=== PATIENT | female | born 1980 | race Caucasian/White ===

== ENCOUNTER 2023-11-10 08:49 | Outpatient (RCR) | payer OTHER, SELFPAY | END 2023-12-05 11:39 | disposition home or self-care (01) | LOC: OT 08:49 | PROVIDERS: PCP Family Medicine | DX: G35 Multiple sclerosis (principal); G43.009 Migraine without aura, not intractable, without status migrainosus; R26.9 Unspecified abnormalities of gait and mobility | CPT/HCPCS: 97166; 97530 ==

== ENCOUNTER 2023-11-10 08:55 | Outpatient (RCR) | payer OTHER, SELFPAY | END 2023-12-05 11:40 | disposition home or self-care (01) | LOC: PT 08:55 | PROVIDERS: PCP Family Medicine | DX: G35 Multiple sclerosis (principal); G43.009 Migraine without aura, not intractable, without status migrainosus; R26.9 Unspecified abnormalities of gait and mobility | CPT/HCPCS: 97110; 97162; 97530 ==

== ENCOUNTER 2023-12-06 06:00 | Outpatient (RCR) | payer MEDICARE, MEDICAID, SELFPAY | END 2024-01-01 16:38 | disposition home or self-care (01) | LOC: OT 06:00 | PROVIDERS: PCP Family Medicine | DX: G35 Multiple sclerosis (principal); G43.009 Migraine without aura, not intractable, without status migrainosus | CPT/HCPCS: 97530 ==

== ENCOUNTER 2023-12-06 06:00 | Outpatient (RCR) | payer MEDICARE, MEDICAID, SELFPAY | END 2024-01-12 16:38 | disposition home or self-care (01) | LOC: PT 06:00 | PROVIDERS: PCP Family Medicine | DX: G35 Multiple sclerosis (principal); G43.009 Migraine without aura, not intractable, without status migrainosus | CPT/HCPCS: 97110; 97530 ==

== ENCOUNTER 2024-01-11 15:28 | Emergency (ER) | payer MEDICARE, MEDICAID, SELFPAY ==
[2024-01-11] VITALS (18 sets, daily range): BP systolic 109–139; BP diastolic 41–83; PULSE 98–108; TEMP 36.7; O2SAT 93–98; BMI 43.3
--- NOTE | 2024-01-11 15:48 | ECG_ITS ---
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
--- NOTE | 2024-01-11 15:54 | ED.GENADUL1 ---
HPI HPI - General Adult General Chief complaint: Syncope Stated complaint: Dizziness Time Seen by Provider: 01/11/24 15:31 Mode of arrival: ambulance History of Present Illness HPI narrative: Patient is a 43-year-old female who presents to the emergency department by ambulance for a syncopal episode with questionable head injury prior to arrival. Patient was at physical therapy. 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 She has never had surgery on her brain. Her MS and seizure disorder is managed by neurology at [facility]. She denies any recent change of her medications. She was in a seated position after therapy when she felt lightheaded, dizzy and fell forward passing out for several seconds. Initially physical therapy reported that the patient did not hit her head, although on arrival EMS reports that she did. She was not noted to have any epistaxis, dental injury. She complains of pain in the head, upper back, right hip and right elbow. She is not concerned for . She denies any recent illness. On my evaluation, the patient is whispering and rolling her eyes back in her head. The whispering stops and the patient becomes more focused when she is asked questions and distracted. Related Data Previous Rx's ?Medication ?Instructions ?Recorded ctiyrfyxyo-cbyteuxifqear-xxbxvjwz 1 cap PO Q6H PRN headache 3 days 01/11/24 50 mg-300 mg-40 mg capsule #12 caps (Fioricet) ondansetron 4 mg disintegrating 4 mg PO Q6H PRN nausea and 01/11/24 tablet vomiting #12 tabs Allergies Allergy/AdvReac Type Severity Reaction Status Date / Time No Known Drug Allergies Allergy Verified 01/11/24 15:35 Opioid HPI Opioid Management Most Recent Opioid Data: Last NOV Pain Assessment 01/11/24 16:22 Review of Systems ROS Constitutional Denies: fever or chills Ears, nose, mouth, and throat Denies: throat pain, nasal congestion or nose bleeds Cardiovascular Denies: chest pain Respiratory Denies: shortness of breath or cough Gastrointestinal Denies: nausea or vomiting Musculoskeletal Reports: back pain, extremity pain, joint pain and muscle weakness; Denies: neck pain or extremity swelling Integumentary/Breast Denies: rash Neurological Reports: headache, weakness in extremities and dizziness Hematologic/Lymphatic Denies: easy bruising or easy bleeding Exam Narrative Exam Narrative: Gen.: Awake, alert, in no distress Head: Normocephalic, atraumatic ENT: Moist mucous membranes, No facial or dental injury, C-spine nontender Respiratory: No respiratory distress, lungs clear bilaterally Cardio: Regular rate and rhythm Gastrointestinal: Abdomen is soft, nondistended and nontender to palpation, Pelvis is stable with tenderness of the right hip Extremities: Moves extremities equally Psych: Normal mood and affect Neuro: No focal neuro deficit Skin: Warm, dry, intact Constitutional Vital Signs, click to edit/add: Last Vital Signs Temp 98.1 F 01/11/24 15:30 Pulse 99 H 01/11/24 16:30 Resp 23 H 01/11/24 16:30 BP 129/82 01/11/24 16:30 Pulse Ox 97 01/11/24 16:48 O2 Del Method Room Air 01/11/24 16:48 Course Vital Signs Vital signs: Vital Signs Temperature 98.1 F 01/11/24 15:30 Pulse Rate 105 H 01/11/24 15:30 Respiratory Rate 16 01/11/24 15:30 Blood Pressure 139/82 01/11/24 15:30 Pulse Oximetry 93 L 01/11/24 15:30 Oxygen Delivery Method Room Air 01/11/24 15:30 Temperature 98.1 F 01/11/24 15:30 Pulse Rate 99 H 01/11/24 16:30 Respiratory Rate 23 H 01/11/24 16:30 Blood Pressure 129/82 01/11/24 16:30 Pulse Oximetry 97 01/11/24 16:48 Oxygen Delivery Method Room Air 01/11/24 16:48 Medical Decision Making [facility] Narrative Medical decision making narrative: On arrival to the ER, patient was sent for CTs of the head, C-spine, T-spine and a CT angio of the chest due to the lightheadedness and dizziness causing a syncopal episode. All of the studies are unremarkable including x-rays of the right elbow and pelvis. Patient was medicated with IV fluids, Toradol and Zofran. Initially her serum qualitative test was positive, quantitative hCG level is 2, the patient is not . She was given additional Fioricet for headache. Her labs are stable and she is discharged home with Fioricet and Zofran. She was encouraged to follow-up with her neurologist. She had no seizure-like activity in the ER and maintained stable vital signs. She was reevaluated by attending physician prior to discharge. Medical Records Medical records reviewed: Yes I reviewed the patient's medical records Lab Data Lab results reviewed: Yes I reviewed the patient's lab results Labs: Lab Results 01/11/24 01/11/24 Range/Units 16:03 16:20 WBC 13.4 H (4.0-11.0) 10^3/uL RBC 4.28 (4.20-5.40) 10^6/uL Hgb 11.6 L (12.0-16.0) g/dL Hct 35.7 L (36.0-48.0) % MCV 83.4 (81.0-99.0) fL MCH 27.1 (26.7-34.0) pg MCHC 32.5 (29.9-35.2) g/dL RDW 15.1 H (11.0-15.0) % Plt Count 255 (150-450) 10^3/uL MPV 8.5 L (9.5-13.5) fL PT 10.6 (9.0-11.6) sec INR 1.00 Sodium 140 (136-145) mmol/L Potassium 4.0 (3.5-5.1) mmol/L Chloride 104 (98-107) mmol/L Carbon Dioxide 28.8 (21.0-32.0) mmol/L Anion Gap 11.2 BUN 12.0 (7.0-18.0) mg/dL Creatinine 0.61 (0.55-1.02) mg/dL Est GFR ( Amer) >60 (>=60) Est GFR (Non-Af Amer) >60 (>=60) BUN/Creatinine Ratio 19.7 Glucose 131 H (74-106) mg/dL Lactate 1.5 (0.4-2.0) mmol/L Calcium 9.2 (8.5-10.1) mg/dL Magnesium 1.9 (1.8-2.4) mg/dL Total Bilirubin 0.2 (0.2-1.0) mg/dL AST 25 (15-37) U/L ALT 43 (14-59) U/L Alkaline Phosphatase 130 H (46-116) U/L Troponin I High Sens 4.9 (4.0-51.3) pg/mL Total Protein 6.9 (6.4-8.2) g/dL Albumin 3.0 L (3.4-5.0) g/dL Globulin 3.9 g/dL Albumin/Globulin Ratio 0.8 TSH 1.488 (0.358-3.740) uIU/mL Serum HCG, Qual Positive A (NEGATIVE) HCG, Quant 2 mIU/mL Urine Color Yellow (YELLOW) Urine Clarity Clear (CLEAR) Urine pH 5.5 (5.0-9.0) Ur Specific [place] >=1.030 A (1.005-1.025) Urine Protein Negative (NEG/TRACE) mg/dL Urine Glucose (UA) Negative (NEGATIVE) mg/dL Urine Ketones Negative (NEGATIVE) mg/dL Urine Occult Blood Negative (NEGATIVE) Urine Nitrite Negative (NEGATIVE) Urine Bilirubin Negative (NEGATIVE) Urine Urobilinogen 0.2 (0.2-1.0) EU/dL Ur Leukocyte Esterase Negative (NEGATIVE) Imaging Data CT scan - head: Attestation: I have reviewed the pertinent imaging results. Radiologist's impression: ITS Impressions Cervical Spine CT 01/11/24 17:11 IMPRESSION: No acute traumatic intracranial process. No cervical spine fracture. Electronically authenticated by: [employer] Date: 01/11/2024 18:03 Chest CTA 01/11/24 17:11 IMPRESSION:No evidence of pulmonary embolus or acute intrathoracic abnormality. Electronically authenticated by: [employer] Date: 01/11/2024 17:38 Elbow X-Ray 01/11/24 17:11 IMPRESSION: No acute processes. Electronically authenticated by: [employer] Date: 01/11/2024 17:[address] 01/11/24 17:11 IMPRESSION: No acute traumatic intracranial process. No cervical spine fracture. Electronically authenticated by: [employer] Date: 01/11/2024 18:[address] 01/11/24 17:11 IMPRESSION: No acute fracture. Electronically authenticated by: [employer] Date: 01/11/2024 18:05 ECG Data Attestation: I personally reviewed and interpreted this ECG as follows: (Normal sinus rhythm at a rate of 99, no acute ST elevation or ectopy. EKG reviewed by attending physician) Discharge Plan Discharge Stand Alone Forms: Portal Instructions Chief Complaint: Syncope Clinical Impression: Headache, Syncope Patient Disposition: Home, Self-Care Time of Disposition Decision: 18:13 Condition: Good Prescriptions / Home Meds: New wixaruxxut-gcusxfipvuddt-ismx [Fioricet] 50-300-40 mg capsule 1 cap PO Q6H PRN (Reason: headache) 3 Days Qty: 12 0RF ondansetron 4 mg tablet,disintegrating 4 mg PO Q6H PRN (Reason: nausea and vomiting) Qty: 12 0RF Print Language: Macedonian Instructions: Syncope (ED), Acute Headache (ED) Referrals: REX HAMM [Primary Care Provider] - 1 week
[2024-01-11] MEDS: KETOROLAC TROMETHAMINE 30 MG/ML VIAL IVP (16:22)
[2024-01-11] MEDS: ONDANSETRON PF 4 MG/2 ML VIAL IV (16:22)
[2024-01-11] MEDS: 0.9 % SODIUM CHLORIDE 1,000 ML 999 ML IV (16:22)
[2024-01-11 16:40] LABS: Hematocrit 35.7 % (36.0-48.0); Hemoglobin 11.6 g/dL (12.0-16.0); Mean Corpuscular HGB Conc 32.5 g/dL (29.9-35.2); Mean Corpuscular Hemoglobin 27.1 pg (26.7-34.0); Mean Corpuscular Volume 83.4 fL (81.0-99.0); Mean Platelet Volume 8.5 fL (9.5-13.5); Platelet Count 255 10^3/uL (150-450); Red Blood Count 4.28 10^6/uL (4.20-5.40); Red Cell Distribution Width 15.1 % (11.0-15.0); White Blood Count 13.4 10^3/uL (4.0-11.0)
[2024-01-11 16:49] LABS: Bilirubin Urine NEGATIVE (NEGATIVE); Blood Urine NEGATIVE (NEGATIVE); Clarity Urine CLEAR (CLEAR); Color Urine YELLOW (YELLOW); Glucose Urine UA NEGATIVE (NEGATIVE); Ketones Urine NEGATIVE (NEGATIVE); Leukocyte Esterase Urine NEGATIVE (NEGATIVE); Nitrite Urine NEGATIVE (NEGATIVE); Protein Urine NEGATIVE (NEG/TRACE); Specific Gravity Urine >=1.030 (1.005-1.025); Urobilinogen Urine 0.2 EU/dL (0.2-1.0); pH Urine 5.5 (5.0-9.0)
[2024-01-11 16:56] LABS: Prothrombin Time 10.6 sec (9.0-11.6)
[2024-01-11 17:04] LABS: Alanine Aminotransferase 43 U/L (14-59); Albumin Globulin Ratio 0.8; Alkaline Phosphatase 130 U/L (46-116); Anion Gap 11.2; Aspartate Amino Transferase 25 U/L (15-37); BUN Creatinine Ratio 19.7; Bilirubin Total 0.2 mg/dL (0.2-1.0); Calcium 9.2 mg/dL (8.5-10.1); Carbon Dioxide 28.8 mmol/L (21.0-32.0); Chloride 104 mmol/L (98-107); Estimated GFR (African America >60 (>=60); Estimated GFR (Non-African Ame >60 (>=60); Globulin 3.9 g/dL; Glucose 131 mg/dL (74-106); Magnesium 1.9 mg/dL (1.8-2.4); Sodium 140 mmol/L (136-145); Thyroid Stimulating Hormone 1.488 uIU/mL (0.358-3.740); Total Protein 6.9 g/dL (6.4-8.2); Troponin I High Sensitivity 4.9 pg/mL (4.0-51.3)
[2024-01-11 17:06] LABS: Lactate/Lactic Acid 1.5 mmol/L (0.4-2.0)
--- NOTE | 2024-01-11 17:11 | XR_ITS ---
The [address] [address] Patient Name: ROSAURA HANCOCK MRN: [id number] date: 1980 Sex: F Assigned Patient Location: ER Current Patient Location: ER Accession/Order Number: [id number] Exam Date: 01/11/2024 16:30 Report Date: 01/11/2024 18:02 At the request of: HEVER HERNANDEZ Procedure: XR pelvis 1-2V IMAGES REVIEWED: XR pelvis 1-2V COMPARISON: 03/04/2022. CLINICAL INDICATION: fall FINDINGS/IMPRESSION: No radiographic evidence of acute osseous abnormality of the pelvis. Mild-moderate degenerative change of right greater than left hips. Electronically authenticated by: DAWIT MAYER Date: 01/11/2024 18:02
--- NOTE | 2024-01-11 17:11 | CT_ITS ---
The [address] [address] Patient Name: ROSAURA HANCOCK MRN: [id number] date: 1980 Sex: F Assigned Patient Location: ER Current Patient Location: ER Accession/Order Number: [id number] Exam Date: 01/11/2024 16:30 Report Date: 01/11/2024 18:03 At the request of: HEVER HERNANDEZ Procedure: CT head/brain wo con EXAMINATION: CT head/brain wo con, CT cervical spine wo con HISTORY: syncope COMPARISON: None. TECHNIQUE: CT scan of the head and cervical spine was performed without IV contrast. CT dose reduction technique was used, including Automated Exposure Control. FINDINGS: There are no extra-axial fluid collections. There is no mass effect or midline shift. The cerebral ventricles and sulci are normal. The brain demonstrates normal attenuation. Basal cisterns are patent. There is bilateral subcortical and deep periventricular white matter chronic microvascular ischemia. Bilateral orbits, paranasal sinuses and mastoid air cells are patent. No skull base fracture. Cervical spine: Straightening of cervical spine lordosis, likely positional. Atlantodental interval is normal. No spondylolisthesis. No acute fracture. Prevertebral soft tissue is normal. CT/CT head/brain wo con IMPRESSION: No acute traumatic intracranial process. No cervical spine fracture. Electronically authenticated by: ANTHONY CHAVEZ Date: 01/11/2024 18:03
--- NOTE | 2024-01-11 17:11 | XR_ITS ---
The [address] [address] Patient Name: ROSAURA HANCOCK MRN: [id number] date: 1980 Sex: F Assigned Patient Location: ER Current Patient Location: ER Accession/Order Number: [id number] Exam Date: 01/11/2024 16:30 Report Date: 01/11/2024 17:59 At the request of: HEVER HERNANDEZ Procedure: XR elbow RT min 3V EXAM: XR elbow RT min 3V HISTORY: fall COMPARISON: None. TECHNIQUE: 3 views of the right elbow FINDINGS: There is no acute fracture or dislocation. No cortical erosion. No elbow joint effusion. The soft tissues are unremarkable. XR/XR elbow RT min 3V IMPRESSION: No acute processes. Electronically authenticated by: ANTHONY CHAVEZ Date: 01/11/2024 17:59
--- NOTE | 2024-01-11 17:11 | CT_ITS ---
The [address] [address] Patient Name: ROSAURA HANCOCK MRN: [id number] date: 1980 Sex: F Assigned Patient Location: ER Current Patient Location: ER Accession/Order Number: [id number] Exam Date: 01/11/2024 16:30 Report Date: 01/11/2024 18:03 At the request of: HEVER HERNANDEZ Procedure: CT cervical spine wo con EXAMINATION: CT head/brain wo con, CT cervical spine wo con HISTORY: syncope COMPARISON: None. TECHNIQUE: CT scan of the head and cervical spine was performed without IV contrast. CT dose reduction technique was used, including Automated Exposure Control. FINDINGS: There are no extra-axial fluid collections. There is no mass effect or midline shift. The cerebral ventricles and sulci are normal. The brain demonstrates normal attenuation. Basal cisterns are patent. There is bilateral subcortical and deep periventricular white matter chronic microvascular ischemia. Bilateral orbits, paranasal sinuses and mastoid air cells are patent. No skull base fracture. Cervical spine: Straightening of cervical spine lordosis, likely positional. Atlantodental interval is normal. No spondylolisthesis. No acute fracture. Prevertebral soft tissue is normal. CT/CT cervical spine wo con IMPRESSION: No acute traumatic intracranial process. No cervical spine fracture. Electronically authenticated by: ANTHONY CHAVEZ Date: 01/11/2024 18:03
--- NOTE | 2024-01-11 17:11 | CT_ITS ---
[address] [address] Patient Name: ROSAURA HANCOCK MRN: [id number] date: 1980 Sex: F Assigned Patient Location: ER Current Patient Location: ER Accession/Order Number: [id number] Exam Date: 01/11/2024 16:30 Report Date: 01/11/2024 18:05 At the request of: HEVER HERNANDEZ Procedure: CT thoracic spine wo con EXAMINATION: CT thoracic spine wo con HISTORY: fall COMPARISON: None. TECHNIQUE: CT scan of the thoracic spine was performed without IV contrast. CT dose reduction technique was used, including Automated Exposure Control. FINDINGS: There is normal thoracic lordosis. No spondylolisthesis. No prevertebral soft tissue swelling. No evidence for fracture. CT/CT thoracic spine wo con IMPRESSION: No acute fracture. Electronically authenticated by: ANTHONY CHAVEZ Date: 01/11/2024 18:05
--- NOTE | 2024-01-11 17:11 | CT_ITS ---
[address] [address] Patient Name: ROSAURA HANCOCK MRN: [id number] date: 1980 Sex: F Assigned Patient Location: ER Current Patient Location: ER Accession/Order Number: [id number] Exam Date: 01/11/2024 16:30 Report Date: 01/11/2024 17:38 At the request of: HEVER HERNANDEZ Procedure: CT angio chest EXAM: CT angio chest HISTORY: PE, syncope COMPARISON: None. TECHNIQUE: CT chest with intravenous contrast was performed with timing for the evaluation for pulmonary arteries. Multiplanar reformats were performed. MIP (maximum intensity projection) images or 3D post processing was performed. Dose reduction techniques were achieved by using automated exposure control and/or adjustment of mA and/or kV according to patient size and/or use of iterative reconstruction technique. FINDINGS: Lungs: No consolidation, pneumothorax, or effusion. Airways: Normal. Mediastinum: No adenopathy. Aorta: No aneurysm. Cardiac: Normal size. No pericardial effusion. Pulmonary vasculature: Diagnostic opacification of pulmonary arteries without evidence of pulmonary embolus. Normal morphology. Bones: No acute bony abnormality. Axilla: No adenopathy. Thyroid gland: No abnormality demonstrated on provided imaging. Soft tissues: Unremarkable. Upper abdomen: Unremarkable. Additional findings: None. CT/CT angio chest IMPRESSION:No evidence of pulmonary embolus or acute intrathoracic abnormality. Electronically authenticated by: ANTHONY CHAVEZ Date: 01/11/2024 17:38
[2024-01-11 17:24] LABS: Urine Microscopic Indicated NO
[2024-01-11 18:02] LABS: HCG Quantitative 2 mIU/mL
[2024-01-11 18:08] LABS: Band Neutrophils Absolute 0.3 10^3/uL (0.0-0.3); Segmented Neut Absolute Manual 3.88 10^3/uL (1.4-6.5)
[2024-01-11 18:09] LABS: Eosinophils Absolute Manual 0.67 10^3/uL (0.00-0.70); Monocytes Absolute Manual 0.67 10^3/uL (0.30-0.80)
[2024-01-11] MEDS: BUTALB/ACETAMINOPHEN/CAFFEINE 50-325-40MG TABLET 1 TAB PO (18:15)
== END 2024-01-11 18:29 | disposition home or self-care (01) ==
PROVIDERS: Physician Assistant; Emergency Provider Emergency Medicine; PCP Family Medicine
DX: R55 Syncope and collapse (principal); R51.9 Headache, unspecified; G35 Multiple sclerosis; G40.909 Epilepsy, unspecified, not intractable, without status epilepticus; Z86.73 Personal history of transient ischemic attack (TIA), and cerebral infarction without residual deficits; M54.89 Other dorsalgia; M25.551 Pain in right hip; M25.521 Pain in right elbow; R42 Dizziness and giddiness; M62.81 Muscle weakness (generalized)
CPT/HCPCS: 36415; 70450; 71275; 72125; 72128; 72170; 73080; 80053; 81003; 83605; 83735; 84443; 84484; 84702; 84703; 85007; 85027; 85610; 93005; 96361; 96374; 96375; 99285; Q9967

== ENCOUNTER 2025-06-10 14:59 | Emergency (ER) | payer MEDICARE, MEDICAID, SELFPAY ==
[2025-06-10] VITALS (33 sets, daily range): BP systolic 125–142; BP diastolic 79–99; PULSE 86–113; TEMP 37.3; O2SAT 93–100; BMI 38.7
--- NOTE | 2025-06-10 14:59 | CT_ITS ---
The [address] [address] Patient Name: ROSAURA HANCOCK MRN: [id number] date: 1980 Sex: F Assigned Patient Location: ED.MAIN Current Patient Location: ED.MAIN Accession/Order Number: [id number] Exam Date: 06/10/2025 15:40 Report Date: 06/10/2025 16:03 At the request of: KADI NEW MD Procedure: CT cervical spine wo con CT BRAIN WITHOUT CONTRAST: CLINICAL HISTORY: seizure and fall COMPARISON: CT brain 01/11/2024 TECHNIQUE: Contiguous axial unenhanced images were obtained through the brain. This CT exam was performed using one or more following dose reduction techniques: Automated exposure control, adjustment of the mA and/or kV according to patient size, or use of iterative reconstruction technique. FINDINGS: There is no evidence of midline shift, intra or extra-axial fluid collection, hemorrhage or CT evidence of stroke. Cortical atrophy with chronic microvascular ischemic changes. Posterior fossa appears unremarkable. Visualized intraorbital contents appear unremarkable. Visualized paranasal sinuses are clear. The surrounding soft tissues are normal. CT/CT head/brain wo con IMPRESSION: NO ACUTE INTRACRANIAL ABNORMALITY. CT CERVICAL SPINE WITHOUT CONTRAST WITH 3D RECONSTRUCTIONS: COMPARISON: CT cervical spine 01/11/2024 TECHNIQUE: Spiral axial unenhanced images were obtained through the cervical spine. Sagittal, coronal and 3D volume-rendered reconstructions were also reviewed. This CT exam was performed using one or more following dose reduction techniques: Automated exposure control, adjustment of the mA and/or kV according to patient size, or use of iterative reconstruction technique. FINDINGS: No fracture. Vertebral body and disc space heights appear maintained. Facet joints appear unremarkable. No prevertebral soft tissue swelling. Visualized lung apices demonstrate no acute findings. IMPRESSION: NO CERVICAL SPINE FRACTURE Impression dictated by: Arnel Radford Jr., DErickOErick 06/10/2025 4:03 PM Dictation Location: [employer] Electronically authenticated by: [id number] Y Date: 06/10/2025 16:03
--- NOTE | 2025-06-10 14:59 | CT_ITS ---
The [address] [address] Patient Name: ROSAURA HANCOCK MRN: [id number] date: 1980 Sex: F Assigned Patient Location: ED.MAIN Current Patient Location: ED.MAIN Accession/Order Number: [id number] Exam Date: 06/10/2025 15:40 Report Date: 06/10/2025 16:03 At the request of: KADI NEW MD Procedure: CT cervical spine wo con CT BRAIN WITHOUT CONTRAST: CLINICAL HISTORY: seizure and fall COMPARISON: CT brain 01/11/2024 TECHNIQUE: Contiguous axial unenhanced images were obtained through the brain. This CT exam was performed using one or more following dose reduction techniques: Automated exposure control, adjustment of the mA and/or kV according to patient size, or use of iterative reconstruction technique. FINDINGS: There is no evidence of midline shift, intra or extra-axial fluid collection, hemorrhage or CT evidence of stroke. Cortical atrophy with chronic microvascular ischemic changes. Posterior fossa appears unremarkable. Visualized intraorbital contents appear unremarkable. Visualized paranasal sinuses are clear. The surrounding soft tissues are normal. CT/CT cervical spine wo con IMPRESSION: NO ACUTE INTRACRANIAL ABNORMALITY. CT CERVICAL SPINE WITHOUT CONTRAST WITH 3D RECONSTRUCTIONS: COMPARISON: CT cervical spine 01/11/2024 TECHNIQUE: Spiral axial unenhanced images were obtained through the cervical spine. Sagittal, coronal and 3D volume-rendered reconstructions were also reviewed. This CT exam was performed using one or more following dose reduction techniques: Automated exposure control, adjustment of the mA and/or kV according to patient size, or use of iterative reconstruction technique. FINDINGS: No fracture. Vertebral body and disc space heights appear maintained. Facet joints appear unremarkable. No prevertebral soft tissue swelling. Visualized lung apices demonstrate no acute findings. IMPRESSION: NO CERVICAL SPINE FRACTURE Impression dictated by: Arnel Radford Jr. DErickOErick 06/10/2025 4:03 PM Dictation Location: [employer] Electronically authenticated by: [id number] Y Date: 06/10/2025 16:03
--- NOTE | 2025-06-10 15:00 | ECG_ITS ---
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 Measurements Intervals [place] Rate: 106 P: 43 [place]: 152 QRS: 37 QRSD: 84 T: 64 QT: 316 QTc: 378 Interpretive Statements 1120 Sinus tachycardia 4068 Nonspecific [place] abnormality 9140 abnormal rhythm ECG Compared to ECG 01/11/2024 16:00:07 Sinus rhythm no longer present Electronically Signed On 06-10-2025 19:25:42 EDT by ONUR BRADY M.D.
--- NOTE | 2025-06-10 15:05 | PC.NURSE ---
pt has tonic clonic seizure witnessed by staff, pt given 10mg iv Valium
--- OUTSIDE RECORDS SUMMARY | 2025-06-10 15:06 | XMS_ITS | Encounter Summary ---
Author Organization [facility] Address [address], [address] [place] [address] Care Team Providers Care An/Syq 13 Nav/C2 Operator Name Role Phone Rik Padgett DO, Charles P Primary Care Provider + Encounter Details Date Type Department Care Team (Latest Contact Info) Description 03/29/2019 Hospital Encounter Cali Bautista DO [address] [address] Social History Tobacco Use Types Packs/Day Years Used Date Smoking Tobacco: Never Smokeless Tobacco: Never Alcohol Use Standard Drinks/Week Comments No 0 (1 standard drink = 0.6 oz pur e alcohol) Comments No Sex and Gender Information Value Date Recorded Sex Assigned at Not on file Legal Sex Female 10:16 AM EST Gender Identity Not on file Sexual Orientation Not on file COVID-19 Exposure Response Date Recorded In the last month, have you been in contact with someone who was confirmed or suspected to have Coronavirus / COVID-19? No / Unsure 09/10/2020 1:40 PM EST documented as of this encounter Plan of Treatment Upcoming Encounters Date Type Department Care Team (Late st Contact Info) Description 07/26/2025 8:40 AM EST Office Visit [facility] NEUROLOGY Part of [address] [place] [address] Janett Shannon MD [address] [place] [address] [address] [place] [address] 3 mth MS f/u documented as of this encounter Visit Diagnoses Diagnosis Altered mental status Encephalopathy Encephalopathy, unspecified documented in this encounter Admitting Diagnoses Diagnosis Altered mental status documented in this encounter Care Teams An/Syq 13 Nav/C2 Operator Relationship Specialty Start Date End Date Won Jolly Sr., DO [address] [id number] PCP - General 05/14/15 documented as of this encounter
--- OUTSIDE RECORDS SUMMARY | 2025-06-10 15:06 | XMS_ITS | Encounter Summary ---
Author Organization [facility] Address [address], [address] [place] [address] Care Team Providers Care Cable Technician Name Role Phone Rik Padgett DO, Charles P Primary Care Provider + Reason for Visit * Reason Comments Medication Refill Encounter Details Date Type Department Care Team (Late Contact Info) Description 03/17/2018 Refill [facility] Neurology Specialist [address] [place] [address] Stan Barnes MD [address], [address] [place], [place] [id number] Medication Refill Social History Tobacco Use Types Packs/Day Years Used Date Smoking Tobacco: Never Smokeless Tobacco: Never Alcohol Use Standard Drinks/Week Comments No 0 (1 standard drink = 0.6 oz pur e alcohol) Comments No Sex and Gender Information Value Date Recorded Sex Assigned at Not on file Legal Sex Female 10:16 AM EST Gender Identity Not on file Sexual Orientation Not on file documented as of this encounter Plan of Treatment Upcoming Encounters Date Type Department Care Team (Late Contact Info) Description 07/26/2025 8:40 AM EST Office Visit [facility] NEUROLOGY Part of [address] [place] [address] Janett Shannon MD [address] [place] [address] [address] [place] [address] 3 mth [place] f/u documented as of this encounter Visit Diagnoses Not on filedocumented in this encounter Care Teams Cable Technician Relationship Specialty Start Date End Date Won Jolly Sr., [address] [id number] PCP - General 05/14/15 documented as of this encounter
--- OUTSIDE RECORDS SUMMARY | 2025-06-10 15:06 | XMS_ITS | Encounter Summary ---
Author Organization [employer] tem Address [id number] [address] [place] [address] Care Team Providers Care Locker Room Attendant Name Role Phone Ap Santiago MD Primary Care Provider [phone] Encounter Details Date Type Department Care Team (Late st Contact Info) Description 04/24/2025 Orders Only Naheed Cee [facility] - Medical Oncology [address] [place] [phone] Leticia Reed CMA Social History Tobacco Use Types Packs/Day Years Used Date Smoking Tobacco: Never Smokeless Tobacco: Never Alcohol Use Standard Drinks/Week Comments Yes 0 (1 standard drink = 0.6 oz pur e alcohol) Overall Financial Resource Strain (CARDIA) Answe r Date Recorded How hard is it for you to pa y for the very basics like food, housing, medical care, and heating? Not very hard 01/04/2025 PRAPARE - Transportation Answer Date Re corded In the past 12 months, has l ack of transportation kept you from medical appointments or from getting medications? No 09/2024 In the past 12 months, has l ack of transportation kept you from meetings, work, or from getting things needed for daily living? No 01/04/2025 Housing Instability Answer Date Recorde d Are you worried or concerned that in the next two months you may not have stable housing that you own, rent or stay in as a part of a household? No 01/04/2025 Childcare Answer Date Recorded Childcare Unknown 02/13/2019 Employment Answer Date Recorded Employment Unknown 02/13/2019 Hunger Screening Answer Date Recorded Within the past 12 months we worried whether our food would run out before we got money to buy more. Never True 03/21/2025 Within the past 12 months th e food we bought just didn't last and we didn't have money to get more. Never True 03/21/2025 Purpose - Life Answer Date Recorded Purpose and direction in life Unknown Comments No Sex and Gender Information Value Date Recorded Sex Assigned at Not on file Legal Sex Female 4:39 PM EDT Gender Identity Not on file Sexual Orientation Not on file documented as of this encounter Plan of Treatment Upcoming Encounters Date Type Department Care Team (Late st Contact Info) Description 06/21/2025 10:00 AM EDT Infusion Naheed Cee [facility] - Medical Oncology [address] [place] [phone] documented as of this encounter Visit Diagnoses Not on filedocumented in this encounter Care Teams Locker Room Attendant Relationship Specialty Start Date End Date Ap Santiago MD [address] [place] [address] PCP - General 01/26/24 documented as of this encounter
--- OUTSIDE RECORDS SUMMARY | 2025-06-10 15:06 | XMS_ITS | Encounter Summary ---
Author Organization [facility] Address [address] [place] [address] Care Team Providers Care Lens Polisher Name Role Phone Won Jolly DO Primary Care Provider [phone] Ap Santiago MD Primary Care Provider [phone] Encounter Details Date Type Department Care Team (Late Contact Info) Description 05/13/2022 Abstract [facility], Neuroscience [address] [place] [address] Branden Morrison LPN Social History Tobacco Use Types Packs/Day Years Used Date Smoking Tobacco: Never Smokeless Tobacco: Never Alcohol Use Standard Drinks/Week Comments Yes 0 (1 standard drink = 0.6 oz pur e alcohol) rarely, PHQ-2 Answer Date Recorded PHQ-9 Total Score 14 07/14/2021 Comments No Sex and Gender Information Value Date Recorded Sex Assigned at Not on file Legal Sex Female 11:23 AM EDT Gender Identity Female 04/15/2021 10:06 AM EDT Sexual Orientation Lesbian 04/15/2021 10 :06 AM EDT COVID-19 Exposure Response Date Recorded In the last 10 days, have yo u been in contact with someone who was confirmed or suspected to have Coronavirus/COVID-19? No / Unsure 05/04/2022 10:11 AM EDT documented as of this encounter Plan of Treatment Upcoming Encounters Date Type Department Care Team (Late st Contact Info) Description 11/02/2025 11:00 AM EST Office Visit [facility], Neuroscience [address] [place] [address] Alexey Kraft MD [address] [place] [address] Discharge Disposition: Home documented as of this encounter Procedures Procedure Name Priority Date/Time Associated Diagnosis Comments EXT STRATIFY JCV ANTIBODY WTIH INDEX AND REFLEX TO INHIBITION Routine 05/04/2022 documented in this encounter Results * Stratify JCV Antibody with Index (05/04/2022) JCV Ab by Inhibition Interpretation Negative Negative [facility] Stratify JCV Ab (with Index) w/RFL Inhibition Index Value 0.15 [facility] JCV Antibody Negative Negative, Indeterminate [facility] Blood 05/04/2022 us Historical Provider LAB BLOOD ORDERABLES Radhika l Result [facility] documented in this encounter Visit Diagnoses Not on filedocumented in this encounter Additional Health Concerns Assessment Noted Time PHQ-9 Depression Total Score: 14 021 12:00 PM EST PHQ-2 Depression Total Score: 3 07/14/20 21 12:00 PM EST documented as of this encounter Care Teams Lens Polisher Relationship Specialty Start Date End Date Won Jolly DO [address] [place] [address] PCP - General Family Medicine 02/28/21 04/19/24 Ap Santiago MD [address] [place] [address] [place] [address] PCP - General Family Medicine 04/20/24 documented as of this encounter
--- OUTSIDE RECORDS SUMMARY | 2025-06-10 15:06 | XMS_ITS | Encounter Summary ---
Author Organization [employer] tem Address [id number] [address] [place] [address] Care Team Providers Care Nail Feeder Name Role Phone Ap Santiago MD Primary Care Provider [phone] Encounter Details Date Type Department Care Team ([facility] Contact Info) Description 10/20/2022 Orders Only Naheed Cee [facility] - Medical Oncology [address] [place] [address] Saira Pickett RN Multiple sclerosis ([facility]) (Primary Dx) Social History Tobacco Use Types Packs/Day Years Used Date Smoking Tobacco: Never Smokeless Tobacco: Never Alcohol Use Standard Drinks/Week Comments Yes 0 (1 standard drink = 0.6 oz pur e alcohol) Childcare Answer Date Recorded Childcare Unknown 02/13/2019 Employment Answer Date Recorded Employment Unknown 02/13/2019 Purpose - Life Answer Date Recorded Purpose and direction in life Unknown Comments Unknown Sex and Gender Information Value Date Recorded Sex Assigned at Not on file Legal Sex Female 4:39 PM EDT Gender Identity Not on file Sexual Orientation Not on file COVID-19 Exposure Response Date Recorded In the last month, have you been in contact with someone who was confirmed or suspected to have Coronavirus / COVID-19? No / Unsure 10/21/2022 10:50 AM EST documented as of this encounter Plan of Treatment Upcoming Encounters Date Type Department Care Team ([facility] Contact Info) Description 06/21/2025 10:00 AM EDT Infusion Naheed Cee [facility] - Medical Oncology [address] [place] [address] documented as of this encounter Visit Diagnoses Diagnosis Multiple sclerosis- Primary documented in this encounter Care Teams Nail Feeder Relationship Specialty Start Date End Date Ap Santiago MD [address] [place] [address] PCP - General 01/26/24 documented as of this encounter
--- OUTSIDE RECORDS SUMMARY | 2025-06-10 15:06 | XMS_ITS | Encounter Summary ---
Author Organization [facility] Address [address], [address] [place] [address] Care Team Providers Care Frame Hand Name Role Phone Rik Padgett DO, Charles P Primary Care Provider + Reason for Visit * Reason Comments Medication Refill Encounter Details Date Type Department Care Team (Late Contact Info) Description 04/14/[address] [phone] Vincent Joe MD [address] [place] [address] [phone] Medication Refill Social History Tobacco Use Types [...] Description 07/26/2025 8:40 AM EST Office Visit [facility] NEUROLOGY Part of [address] [place] [address] Janett Shannon MD [address] [place] [address] [address] [place] [phone] 3 mth MS f/u documented as of this encounter Visit Diagnoses Not on filedocumented in this encounter Care Teams Frame Hand Relationship Specialty Start Date End Date Won Jolly Sr., [address] [place] [address] PCP - General 05/14/15 documented as of this encounter
--- OUTSIDE RECORDS SUMMARY | 2025-06-10 15:06 | XMS_ITS | Encounter Summary ---
Author Organization [facility] Address [address], [address] [place] [address] Care Team Providers Care Carpet Cleaning Technician Name Role Phone Rik Padgett DO, Charles P Primary Care Provider + Reason for Visit * Reason Comments Medication Refill Encounter Details Date Type Department Care Team (Late Contact Info) Description 04/18/[address] [phone] Vincent Joe MD [address] [place] [address] [phone] Medication Refill Social History Tobacco Use Types [...] Description 07/26/2025 8:40 AM EST Office Visit [facility] NEUR[facility] Part of [address] [place] [address] Janett Shannon MD [address] [place] [address] [address] [place] [phone] 3 mth MS f/u documented as of this encounter Visit Diagnoses Not on filedocumented in this encounter Care Teams Carpet Cleaning Technician Relationship Specialty Start Date End Date Won Jolly Sr., [address] [place] [address] PCP - General 05/14/15 documented as of this encounter
--- OUTSIDE RECORDS SUMMARY | 2025-06-10 15:06 | XMS_ITS | Encounter Summary ---
Author Organization [facility] Address [address], [address] [place] [address] Care Team Providers Care Chandelier Maker Name Role Phone Rik Padgett DO, Charles P Primary Care Provider + Reason for Visit * Reason Comments Medication Refill Encounter Details Date Type Department Care Team (Late Contact Info) Description 08/17/2019 Refill [facility] Neurology Specialist [address] [place] [phone] Ar Bass MD [address] [place], [place] [phone] Medication Refill Social History Tobacco Use Types [...] Description 07/26/2025 8:40 AM EST Office Visit [facility] NEUROLOGY Part of [address] [place] [address] Janett Shannon MD [address] [place] [address] [address] [place] [phone] 3 mth MS f/u documented as of this encounter Visit Diagnoses Not on filedocumented in this encounter Care Teams Chandelier Maker Relationship Specialty Start Date End Date Won Jolly Sr., [address] [place] [address] PCP - General 05/14/15 documented as of this encounter
--- OUTSIDE RECORDS SUMMARY | 2025-06-10 15:06 | XMS_ITS | Clinical Summary ---
Author Organization [facility] Address [address], [address] [place] [address] Care Team Providers Care Milking Machine Technician Name Role Phone Rik Padgett, Won DALY Primary Care Provider + Allergies Active Allergy Reactions Criticality Noted Date Comments Codeine Hallucinations,Other (See Comments) Low 02/17/2006 Confusion, tried to jump out of a window Medications butalbital-fortunato taminophen-caf feine (FIORICET) 50-325-40 MG per tablet Take 1 tablet by mouth every 6 hours as needed for Headaches 60 tablet 3 7 Active Additional Information Patient not taking.Reported on 05/03/2025 docusate sodium (COLACE) 100 MG capsule Take 100 mg by mouth daily Active Multiple Vitamins-[place] als (HAIR/SKIN/CALLUM LS/BIOTIN PO) Take by mouth daily Active Specialty Vitamins Products (TAB-A-DIANE WOMENS PO) Take by mouth daily Active dimethyl fumarate (TECFIDERA) 240 MG delayed release capsule Take 1 capsule by mouth 2 times daily 60 capsule 5 7 Active Additional Information Patient not taking.Reported on 05/03/2025 baclofen (LIORESAL) 10 MG tablet Take 1 po am and bedtime and 2 in the afternoon 120 tablet 5 7 Active Additional Information Patient taking differently: 3 TIMES DAILY PRN, (No instructions reported), Reported on 05/03/2025 atorvastatin (LIPITOR) 20 MG tablet Take 1 tablet by mouth nightly 30 tablet 5 7 Active Additional Information Patient taking differently: 40 mgOral NIGHTLY, Reported on 05/03/[address] [facility]. Devices (WALKER) [facility] Rolling walker 1 each 7 Active donepezil (ARICEPT) 10 MG tablet Take 10 mg by mouth nightly Active aspirin 81 MG EC tablet Take 1 tablet by mouth daily as needed for Pain 30 tablet 3 9 Active Additional Information Patient not taking.Reported on 05/03/2025 divalproex (DEPAKOTE) [address] tablet Take 1 tablet by mouth every 12 hours 90 tablet 3 9 Active Additional Information Patient not taking.Reported on 05/03/2025 gabapentin (NEURONTIN) 400 MG capsule Take 1 capsule by mouth 2 times daily for 30 days. 90 capsule 3 9 Active Additional Information Patient taking differently:400 mg Oral 2 TIMES DAILY,2 in the AM, 1 at noon, 2 at night, Reported on 05/03/2025 amitriptyline (ELAVIL) 150 MG tablet Take 1 tablet by mouth nightly 30 tablet 3 9 Active natalizumab (TYSABRI) 300 MG/15ML injection Infuse 15 mLs intravenously every 28 days 5 Active levETIRAcetam (KEPPRA) 500 MG tablet Take 2 tablets by mouth 2 times daily Active modafinil (PROVIGIL) 100 MG tablet Take 1 tablet by mouth daily. Max Daily Amount: 100 mg Active omeprazole (PRILOSEC) 20 MG delayed release capsule Take 1 capsule by mouth daily Active sertraline (ZOLOFT) 100 MG tablet Take 1 tablet by mouth daily Active sertraline (ZOLOFT) 50 MG tablet Take 1 tablet by mouth daily Active LORazepam (ATIVAN) 0.5 MG tablet Take 1 tablet by mouth daily as needed for Anxiety. Max Daily Amount: 0.5 mg Active SUMAtriptan (IMITREX) 50 MG tablet Take 1 tablet by mouth once as needed for Migraine Active vitamin C (ASCORBIC ACID) 500 MG tablet Take 1 tablet by mouth daily Active vitamin B-12 (CYANOCOBALAMI N) 50 MCG tablet Take 1 tablet by mouth daily Active Semaglutide-We ight Management (WEGOVY) 1.7 MG/0.75ML SOAJ SC injection Inject 1.7 mg into the skin every 7 days Active Ferrous Sulfate (IRON) 28 MG TABS Take by mouth Activ e VITAMIN D PO Take by mouth Act negro metFORMIN (GLUCOPHAGE) 500 MG tablet Take 1 tablet by mouth 2 times daily (with meals) Active Active Problems Problem Noted Date Diagnosed Date Seizures 04/02/2019 Altered mental status 04/01/2019 Optic neuritis 07/02/2017 Seizure disorder 06/22/2017 Right sided weakness 05/13/2017 Migraine without aura and wi thout status migrainosus, not intractable 05/13/2017 Multiple sclerosis exacerbation 05/13/2017 Overview (06/22/2017): Patient is a 36-year-old woman seen in the past by Dr. Barnes with migraine headaches seizure disorder and multiple sclerosis. It was recently hospitalized at [facility] on May with right-sided weakness. She was given IV Solu-Medrol during her hospital stay. MRI of the brain at that time showed no acute enhancement and MRI of the cervical and thoracic spine were normal. Her last seizure event was in 2014, and she does have a history of pseudoseizures. He was diagnosed with multiple sclerosis in 2014 with positive MRI findings, elevated IgG index of 0.8 on, I GC synthesis elevated at 6.3, and oligoclonal bands elevated at 7. She had a CSF total protein of 29, glucose 62, white blood cells 7, and rbc's 100. 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 (06/08/2023): Replacing diagnoses that were inactivated after the 06/06/2023 regulatory import Intractable seizures B12 deficiency Syncope and collapse Stroke-like symptoms Numbness and tingling of both lower extremities Encephalopathy Encounters Date Type Department Care Team Description 05/03/2025 11:20 AM EDT Office Visit [facility] NEUROLOGY Part of [address] [place] [address] Janett Shannon MD Multiple sclerosis, relapsing-remitting (HCC) (Primary Dx); Seizure disorder (HCC) from Last 3 Months Family History Medical History Relation Name Comments Heart Disease Father High Blood Pressure Father Migraines Father Stroke Father Cancer Mother breast Diabetes Mother Heart Disease Mother Relation Name Status Comments Father Mother Social History Tobacco Use Types Packs/Day Years Used Date Smoking Tobacco: Never Smokeless Tobacco: Never Alcohol Use Standard Drinks/Week Comments No 0 (1 standard drink = 0.6 oz pur e alcohol) Comments No Sex and Gender Information Value Date Recorded Sex Assigned at Not on file Legal Sex Female 10:16 AM EST Gender Identity Not on file Sexual Orientation Not on file Last Filed Vital Signs Vital Sign Reading Time Taken Comments Blood Pressure 120/84 05/03/2025 11:18 AM EDT Pulse 103 05/03/2025 11:18 AM EDT Temperature 36.3 C (97.3 F) 05/03/2025 11:18 AM EDT Respiratory Rate 20 05/03/2025 11:1 8 AM EDT Oxygen Saturation 99% 04/04/2019 12: 29 PM EDT Inhaled Oxygen Concentration - - Weight 117.1 kg (258 lb 3.2 oz) 025 11:18 AM EDT Height 170.2 cm (5' 7 ) 05/03/2025 11:1 8 AM EDT Body Mass Index 40.44 05/03/2025 11:18 AM EDT Plan of Treatment Upcoming Encounters Date Type Department Care Team (Late st Contact Info) Description 07/26/2025 8:40 AM EST Office Visit [facility] NEUROLOGY Part of [address] [place] [address] Janett Shannon MD [address] [place] [address] [address] [place] [address] 3 mth MS f/u Health Maintenance Due Date Last Done Comments Depression Monitoring 1994 Varicella vaccine (1 of 2 - 13+ 2-dose series) 1995 DTaP/Tdap/Td vaccine (1 - Tdap) 2001 Hepatitis B vaccine (1 of 3 - 19+ 3-dose series) 2001 A1C test (Diabetic or Prediabetic) 04/03/2020 04/03/2019, 04/02/2019, 03/23/2017 Lipids 04/03/2020 04/03/2019, 03/23/2017 Breast cancer screen 2022 Annual Wellness Visit (Medicare Advantage) 09/06/2024 Flu vaccine (#1) 04/06/2025 05/22/2024, , 07/05/2021, Additional history exists COVID-19 Vaccine ( season) 2025 02/21/2021, 01/31/2021 HIV screen Completed 02/07/2015 Hepatitis C screen Completed 04/14/2021 HPV vaccine (No Doses Required) Completed Hepatitis A vaccine Aged Out No longe r eligible based on patient's age to complete this topic Hib vaccine Aged Out No longer eligi ble based on patient's age to complete this topic Meningococcal (ACWY) vaccine Aged Out No longer eligible based on patient's age to complete this topic Meningococcal B vaccine Aged Out No l onger eligible based on patient's age to complete this topic Pneumococcal 0-49 years Vaccine Aged Out No longer eligible based on patient's age to complete this topic Polio vaccine Aged Out No longer elig ible based on patient's age to complete this topic Procedures Procedure Name Priority Date/Time Associated Diagnosis Comments HEPATITIS PANEL, ACUTE Routine 04/14/2021 9:48 AM EDT LIPID PANEL Routine 04/03/2019 4:34 AM EDT HEMOGLOBIN A1C Routine 04/03/2019 4:34 AM EDT HIV SCREEN Routine 02/07/2015 3:35 PM EDT from Last 3 Months or Most Recently Relevant to Health Maintenance Results * Hepatitis Panel, Acute (04/14/2021 9:48 AM EDT) Hepatitis B Surface Ag NONREACTIVE NONREACTIVE 04/14/2021 9:48 AM EDT [facility] Hepatitis C Ab NONREACTIVE NONREACTIVE 04/14/20 9:48 AM EDT [facility] Comment: The hepatitis C procedure used in our laboratory is a Chemiluminescent test specific for three recombinant HCV antigens. A negative anti-HCV result indicates that the antibodies to hepatitis C virus are not present at this time. Individuals with reactive anti-HCV should be considered infected and infectious until proven otherwise. Confirmation of all equivocal or reactive results is recommended by ordering HCV RNA by PCR. Hep B Core Ab, IgM NONREACTIVE NONREACTIVE 05/2021 9:48 AM EDT [facility] Hep A IgM NONREACTIVE NONREACTIVE 04/14/2021 9:48 AM EDT [facility] 04/14/2021 9:48 AM EDT 04/14/2021 9:49 AM EDT Won Jolly Sr., DO IMMUNOLOGY ORDERABLES Fi nal Result Performing Organization Address City/[facility]/ZIP Co de Phone Number [facility] [address] [place], [place] [id number] [place] [address] [address] [place] [address], [facility] [phone] * (ABNORMAL) Hemoglobin A1c (04/03/2019 4:34 AM EDT) Hemoglobin A1C 6.3(H) 4.0 - 6.0 % 04/03/2019 4:34 AM EDT [facility] Estimated Avg Glucose 134 mg/dL 04/03/2019 4:34 AM EDT [facility] Comment: The ADA and AACC recommend providing the estimated average glucose result to permit better patient understanding of their HBA1c result. 04/03/2019 4:34 AM EDT 04/03/2019 5:12 AM EDT Lorraine Davey INK PRINTER - TOY DESIGNER CHEMISTRY ORDE RABLES Final Result Performing Organization Address City/[facility]/ZIP Co de Phone Number [facility] [address] [place] [address], [facility] [phone] * (ABNORMAL) Lipid panel - fasting (04/03/2019 4:34 AM EDT) Cholesterol 180 <200 mg/dL 04/03/2019 4:34 AM EDT [facility] Comment: Cholesterol Guidelines: <200 Desirable 200-240 Borderline >240 Undesirable HDL 41 >40 mg/dL 04/03/2019 4:34 AM EDT [facility] Comment: HDL Guidelines: <40 Undesirable 40-59 Borderline >59 Desirable LDL Cholesterol 106 0 - 130 mg/dL 04/03/2019 4:34 AM EDT [facility] Comment: LDL Guidelines: <100 Desirable 100-129 Near to/above Desirable 130-159 Borderline >159 Undesirable Direct (measured) LDL and calculated LDL are not interchangeable tests. Chol/HDL Ratio 4.4 <5 04/03/2019 4:34 AM EDT [facility] Comment: Triglycerides 165(H) <150 mg/dL 04/03/2019 4:34 AM EDT [facility] Comment: Triglyceride Guidelines: <150 Desirable 150-199 Borderline 200-499 High >499 Very high Based on AHA Guidelines for fasting triglyceride, June 2012. VLDL NOT REPORTED( H) 1 - 30 mg/dL 04/03/2019 4:34 AM EDT [facility] 04/03/2019 4:34 AM EDT 04/03/2019 5:12 AM EDT Lorraine Davey INK PRINTER - TOY DESIGNER CHEMISTRY ORDE RONNILES Final [place] [address], [facility] [phone] * HIV-1 and HIV-2 Antibodies (02/07/2015 3:35 PM EDT) [facility] HIV 1/2 Antibody NONREACTIVE NR 015 12:59 AM EDT [facility] Comment: Interpretation: The presence of antibody to HIV and its association with the potential infectivity, transmission or diagnosis of AIDS has not been established. Furthermore, a 'Non-Reactive' test result does not exclude the possibility of exposure to or infection with HIV. If the above test result is 'Reactive', the Laboratory will order the confirmatory test. [employer] [address] [place] [phone] BLOOD SPECIMEN / Unknown 02/07/2015 3:35 PM EDT 02/07/2015 3:39 PM EDT Ar Bass MD IMMUNOLOGY ORDERABLES Final Re sult [facility] [address] [place] [address], [facility] [phone] [facility] from Last 3 Months or Most Recently Relevant to Health Maintenance Insurance MEDICAID ID [id number] MEDICARE on file Advance Directives * Full Code (Latest Code Status on File) Date Activated Date Inactivated Comments 04/02/2019 3:27 AM 04/04/2019 8:56 PM * Full Code Date Activated Date Inactivated Comments 04/02/2019 2:29 AM 04/02/2019 3:27 AM * Full Code Date Activated Date Inactivated Comments 05/14/2017 4:56 PM 05/16/2017 3:37 PM * Full Code Date Activated Date Inactivated Comments 03/22/2017 11:35 PM 03/26/2017 7:44 PM * Full Code Date Activated Date Inactivated Comments 02/06/2015 9:26 AM 02/07/2015 7:27 PM Care Teams Milking Machine Technician Relationship Specialty Start Date End Date Won Jolly Sr., DO [address] [place] [address] PCP - General 05/14/15
--- OUTSIDE RECORDS SUMMARY | 2025-06-10 15:06 | XMS_ITS | Encounter Summary ---
Author Organization [facility] Address [address], [address] [place] [address] Care Team Providers Care Management Advisor Name Role Phone Rik Padgett DO, Charles P Primary Care Provider + Encounter Details Date Type Department Care Team (Late st Contact Info) Description 04/01/[address] [facility] [address] [place], [place] [address] Lorraine Davey, GEOSCIENCES ASSOCIATE PROFESSOR - FORM SETTER [address] [employer] [address] [place] [address] Social History Tobacco Use Types Packs/Day Years [...] Description 07/26/2025 8:40 AM EST Office Visit [facility] Part of [address] [place] [address] Janett Shannon MD [address] [place] [address] [address] [place] [address] 3 mth MS f/u documented as of this encounter Visit Diagnoses Not on filedocumented in this encounter Care Teams Management Advisor Relationship Specialty Start Date End Date Won Jolly Sr., DO [address] [id number] PCP - General 05/14/15 documented as of this encounter
--- OUTSIDE RECORDS SUMMARY | 2025-06-10 15:07 | XMS_ITS | Patient Health Record ---
Author Organization [facility] [place] Address [address] [place] [address] Care Team Providers Care Belting Cutter Name Role Phone Won Jolly DO Primary Care Provider Unavaila ble Allergies Allergen (clinical drug ingredient) Drug/Non Drug Allergy documented on EMR Reaction Allergy Type Onset Date Status Codeine Sulfate (codeine) Unknown Drug Allergy Active Reason For Referral No Information Medications Medication SIG (Take, Route, Frequency, Duration) Notes Start Date End Date Status Amitriptyline HCl 50 MG take 3 tablets by mouth at bedtime; Duration: 30 Active Zanaflex 4 MG 1 tablet as needed Orally Three times a day prn spasms; Duration: 90 days PRN 01/09/2019 Not-Taking Tecfidera 240 MG 1 capsule Orally Twice a day Not-Taking Handicapped Tag as directed; Duration: 1825 Days 05/16/2020 Active Imitrex 100 MG 1 tablet at least 2 hours between doses as needed Orally Twice a day; Duration: 30 days Active Gabapentin 400 MG 2 caps q am; 1 in afternoon; 2 in evening Orally TID Active Hair Skin and Nails Formula - as directed Orally Active Gabapentin 400 MG TAKE 2 CAPSULES BY MOUTH EVERY MORNING, 1 CAPSULE EVERY AFTERNOON, AND 2 CAPSULES EVERY EVENING; Duration: 30 Active Miscellaneous - -shower chair - - 04/07/2019 Active Multi Vitamin - 1 tablet Orally Once a day Active metFORMIN HCl 500 MG 1 tablet with a meal Orally BID Active Baclofen 20 MG take 1 tablet by mouth three times a day; Duration: 90 Active Ondansetron HCl 4 MG 1 tab as needed for nausea Orally BID; Duration: 30 day(s) 12/26/2020 Active Keppra 500 MG 2 tabs Orally Twice a day; Duration: 30 days Active Probiotic - as directed Orally Active Provigil 100 MG 1 tablet in the morning Orally Once a day; Duration: 30 days 03/29/2023 Active Acthar HP Not-Taking Aspirin 81 MG 1 tablet Orally Once a day PRN Not-Taking Abilify 5 MG 1 tablet Orally Once a day; Duration: 30 day(s) Active Tysabri 300 MG/15ML as directed Intravenous Active Adipex-P 37.5 MG 1 tablet Orally Once a day Active Zoloft 100 mg 2 tab Oral; Duration: 14 days Active Cane - as directed 05/04/2018 Active predniSONE 10 MG as directed Orally as directed; Duration: 20 days 2 -10mg tab TID x 3 day2-10mg tab BID x 3 day,1-10mg tab TID x 3 day,1-10mg tab BID x 3 day,1/2-10mg tab BID x 3 day,1/2- 10mg tab daily daily for 3 day 07/01/2018 Not-Taking Cock-Up Splint -- Use as directed 09/14/2018 Active Sertraline HCl 50 MG 1 tablet Orally Once a day Not-Taking Baclofen 10 MG 1-2 tabs Orally Three times a day; Duration: 30 days Not-Taking Atorvastatin Calcium 20 MG 1 tablet Orally Once a day; Duration: 90 days Not-Taking Arpmgfvqkb-BXDF-Fmkiub ne 50-325-40 MG 1 tablet as needed Orally every 4 hrs Active Ketorolac Tromethamine 10 MG 1 tablet with food or milk as needed Orally every 6 hrs; Duration: 5 day(s) 03/03/2018 Not-Taking Colace 100 MG 1 capsule as needed Orally Once a day Active Donepezil HCl 10 MG take 1 tablet by mouth at bedtime; Duration: 30 Active Social History Tobacco Use: Social History Observation Description Date Details (start date - stop date) Never Smoker NA - NA Tobacco Use/Smoking Question Answer Notes Patient is a nonsmoker Problems Problem Type SNOMED Code ICD Code Onset Dates Problem Status W/U Status Risk Notes Problem Multiple sclerosis (26610996) Multiple sclerosis (G35) Active confirmed Problem Polyneuropathy (15931429) Polyneuropathy, unspecified (G62.9) Active confirmed Problem Polyneuropathy (57362241) Polyneuropathy in diseases classified elsewhere (G63) Active confirmed Problem Pain in right leg (052747039) Pain in right leg (M79.604) Active confirmed Problem Pain in left leg (591832152) Pain in left leg (M79.605) Active confirmed Problem Pain in limb (31296027) Pain in right hand (M79.641) Active confirmed Problem Pain in right foot (966720595037291) Pain in right foot (M79.671) Active confirmed Problem Pain in left foot (109789121128174) Pain in left foot (M79.672) Active confirmed Problem Anesthesia of skin (590305837) Anesthesia of skin (R20.0) Active confirmed Problem Paresthesia (finding) (56138341) Paresthesia of skin (R20.2) Active confirmed Problem Ataxic gait (96006542) Ataxic gait (R26.0) Active confirmed Problem Weakness (66212743) Weakness (R53.1) Active confirmed Problem Fatigue (19173930) Other fatigue (R53.83) Active confirmed Problem Numbness (00155778) Numbness (R20.0) Active confirmed Problem Carpal tunnel syndrome (48693818) Carpal tunnel syndrome on both sides (G56.01) Active confirmed Problem Carpal tunnel syndrome (59585542) Carpal tunnel syndrome (G56.00) Active confirmed Problem Seizure (49429633) Seizures (R56.9) Active confirmed Problem Neck pain (02128429) Neck pain (M54.2) Active confirmed Problem Liver enzymes abnormal (013341291) Abnormal liver enzymes (R74.8) Active confirmed Elastography - F 3 ?? 10/2018-but liver bx - F1 Problem Chronic fatigue syndrome (76014616) Chronic fatigue (R53.82) Active confirmed Problem Fatty liver (301962941) Fatty liver (K76.0) Active confirmed Problem Carpal tunnel syndrome of right wrist (706834991721479) Carpal tunnel syndrome of right wrist (G56.01) Active confirmed Problem Rectal bleeding (97370847) Rectal bleeding (K62.5) Active confirmed Problem Pain of left hand (630385721657383) Pain of left hand (M79.642) Active confirmed Problem Memory loss (12382308) Memory loss (R41.3) Active confirmed Problem Tremor due to central nervous system disease (finding) (218333050) Tremors of nervous system (R25.1) Active confirmed Problem Carpal tunnel syndrome (32520748) Left carpal tunnel syndrome (G56.02) Active confirmed Problem History of cerebrovascular accident (425398182) History of stroke (Z86.73) Active confirmed Problem Spasticity (633659460) Spasticity (R25.2) Active confirmed Problem Recurrent falls (668290234) Frequent falls (R29.6) Active confirmed Problem WAY - Nonalcoholic steatohepatitis (007006755) WAY (nonalcoholic steatohepatitis) (K75.81) Active confirmed Problem Skin sensation disturbance (22332872) Numbness in both hands (R20.0) Active confirmed Problem Muscle weakness (23975081) Leg weakness (M62.81) Active confirmed Problem Functional visual loss (212648882) Vision loss (H54.7) Active confirmed Problem Exacerbation of multiple sclerosis (067792910) Exacerbation of multiple sclerosis (G35) Active confirmed Problem EEG abnormal (727537225) Abnormal EEG (R94.01) Active confirmed Problem Urinary incontinence (085051238) Urinary incontinence, unspecified type (R32) Active confirmed Problem Depressive disorder (disorder) (61893602) Depression, unspecified depression type (F32.9) Active confirmed improved on Zoloft Problem Skin sensation disturbance (78689184) Sensory abnormality of lumbar dermatome distribution (R20.8) Active confirmed L3 Problem Personal history of primary malignant neoplasm of female genital organ (134013111) Hx of cancer of uterus (Z85.42) Active confirmed Problem Speech impairment (42616647) Speech impairment (R47.9) Active confirmed Problem Bilateral carpal tunnel syndrome (3662394604864418 1) Bilateral carpal tunnel syndrome (G56.03) Active confirmed Problem Elevated liver enzymes level (839358228) Elevated LFTs (R94.5) Active confirmed Problem Median neuropathy (296965464) Median neuropathy of both upper extremities (G56.13) Active confirmed Problem Disorder of musculoskeletal system (601756) Weakness of both arms (R29.898) Active confirmed Problem Disorder of musculoskeletal system (900928) Weakness of both hands (R29.898) Active confirmed Problem Fatty liver (573870491) Fatty liver determined by biopsy (K76.0) Active confirmed Plan Of Treatment Pending Test Test Name Order Date Colonoscopy 10/12/2018 ANTI - CORTES (SM) 12/17/2020 IRON, TOTAL 10/12/2018 KEPPRA (LEVETIRACETAM) LEVEL 07/29/2021 UA (REFLEX URINALYSIS TO CULTURE) 2017 EEG Routine 12/14/2017 Liver biopsy 01/09/2019 STRATIFY JCV AB 02/09/2018 EMG Nerve Conduction Study Legs (bilater al) 02/05/2023 Future Test Test Name Order Date LIVER (HEPATIC) PANEL 12/07/2018 LIVER (HEPATIC) PANEL 02/01/2019 LIVER (HEPATIC) PANEL 08/08/2019 LIVER (HEPATIC) PANEL 09/05/2019 LIVER (HEPATIC) PANEL 10/07/2019 LIVER (HEPATIC) PANEL 01/05/2020 LIVER (HEPATIC) PANEL 05/13/2020 Insurance Providers Payer Name Payer Address Payer Phone Subscriber Number Group Number Insured Name Patient Relationship to Insured Coverage Start Date Coverage End Date ANTH MEDICARE ADV PLAN [address] [place] [address] [id number] [facility] [place] Self - patient is the insured [address] OFF[place] OF [place], [place] [id number] [place] josefa [place] Self - patient is the insured 1 Medical (General) History Medical History History ICD Code MS UTERINE CANCER lyme disease migraines seizures DVT H/O blood clots optic neuritis Rectal bleeding K62.5 Elevated LFT's Surgical History Surgery Date(Month/Year) gallbladder removed ovary removed hysterectomy 2 c-sections tonsillectomy colonoscopy 12/23 liver bx 5-19 rt carpal tunnel 10/04/2019 Port Insertion- [facility] in [place] 10/26 Hospitalization History Reason Date(Month/Year) [place] 04/01-2018 [facility] 02/2021 [facility]_ _-admitted 03/2019
--- OUTSIDE RECORDS SUMMARY | 2025-06-10 15:07 | XMS_ITS | Encounter Summary ---
Author Organization [facility] Address [id number] [address] [place] [address] Care Team Providers Care Parking Lot Attendant Name Role Phone Ap Santiago MD Primary Care Provider [phone] Encounter Details Date Type Department Care Team (Latest Contact Info) Description 05/29/2025 Travel Social History Tobacco Use Types Packs/Day Years [...] got money to buy more. Never True 05/15/2025 Within the past 12 months th e food we bought just didn't last and we didn't have money to get more. Never True 05/15/2025 Purpose - Life Answer Date Recorded Purpose [...] Info) Description 06/21/2025 10:00 AM EDT [facility] [address] [place] [address] documented as of this encounter Visit Diagnoses Not on filedocumented in this encounter Care Teams Parking Lot Attendant Relationship Specialty Start Date End Date Ap Santiago MD [address] [place] [address] PCP - General 01/26/24 documented as of this encounter
--- OUTSIDE RECORDS SUMMARY | 2025-06-10 15:07 | XMS_ITS | Encounter Summary ---
Author Organization [facility] Address [address] [place] [address] Care Team Providers Care Shuttle Preparation Supervisor Name Role Phone Won Jolly DO Primary Care Provider [phone] Ap Santiago MD Primary Care Provider [phone] Encounter Details Date Type Department Care Team (Late st Contact Info) Description 06/25/2021 Abstract [facility], Neuroscience [address] [place], [place] [id number] Alexey Kraft MD [address] [place] [address] Social History Tobacco Use Types Packs/Day Years Used Date Smoking Tobacco: Never Smokeless Tobacco: Never Alcohol Use Standard Drinks/Week Comments Yes 0 (1 standard drink = 0.6 oz pur e alcohol) rarely, Comments No Sex and Gender Information Value [...] have Coronavirus / COVID-19? No / Unsure 06/18/2021 11:16 AM EDT documented as of this encounter Plan of Treatment Upcoming Encounters Date Type Department Care Team (Late Contact Info) Description 11/02/2025 11:00 AM EST Office Visit [facility], Neuroscience [address] [place] [address] Alexey Kraft MD [address] [place] [address] Discharge Disposition: Home documented as of this encounter Procedures Procedure Name Priority Date/Time Associated Diagnosis Comments EXT STRATIFY JCV ANTIBODY WTIH INDEX AND REFLEX TO INHIBITION Routine 06/18/2021 documented in this encounter Results * Stratify JCV Antibody with Index (06/18/2021) JCV Ab by Inhibition Interpretation Negative Negative [facility] Stratify JCV Ab (with Index) w/RFL Inhibition Index Value 0.08 [facility] JCV Antibody Negative Negative, Indeterminate [facility] Blood 06/18/2021 us Alexey Kraft MD LAB BLOOD ORDERABLES Fi nal Result [facility] [address] [id number] documented in this encounter Visit Diagnoses Not on filedocumented in this encounter Care Teams Shuttle Preparation Supervisor Relationship Specialty Start Date End Date Won Jolly DO [address] [place] [address] PCP - General Family Medicine 02/28/21 04/19/24 Ap Santiago MD [facility] [place] [address] [place] [address] PCP - General Family Medicine 04/20/24 documented as of this encounter
--- OUTSIDE RECORDS SUMMARY | 2025-06-10 15:07 | XMS_ITS | Clinical Summary ---
Author Organization [facility] Address [address] [place] [address] Care Team Providers Care Celery Cutter Name Role Phone Ap Santiago MD Primary Care Provider [phone] Allergies Active Allergy Reactions Criticality Noted Date Comments Codeine Other (See Comments) 06/18/2021 Confusion, tried to jump out of a window Medications omeprazole (PRILOSEC) 20 MG capsule Take 1 (one) capsule (20 mg total) by mouth daily 1 capsule every morning( stomach issues) . Active LORazepam (ATIVAN) 0.5 MG tablet Take 1 (one) tablet (0.5 mg total) by mouth daily as needed for anxiety . Active cholecalciferol , vitamin D3, 1,000 unit tablet Take 10 (ten) tablets (10,000 Units total) by mouth daily . Active multivitamin (THERAGRAN) per tablet Take 1 (one) tablet by mouth daily . Active biotin 5 mg cap Take 3 (three) capsules (15 mg total) by mouth once daily Biotin 5,000 mcg 3 capsules every morning for hair loss . Active Lactobacillus acidophilus 2 billion cell Tab Take 1 tablet by mouth once daily . Active docusate sodium (COLACE) 100 MG capsule Take 1 (one) capsule (100 mg total) by mouth daily 100 mg caplet once daily. . Active SUMAtriptan (IMITREX) 50 MG tablet Take 1 (one) tablet (50 mg total) by mouth every 2 (two) hours as needed for migraine Max of 200 mg in 24hrs . Active metFORMIN (GLUCOPHAGE) 500 MG tablet Take 1 (one) tablet (500 mg total) by mouth 2 (two) times a day . 3 Active atorvastatin (LIPITOR) 40 MG tablet Take 1 (one) tablet (40 mg total) by mouth daily . Active amitriptyline (ELAVIL) 150 MG tablet Take 1 (one) tablet (150 mg total) by mouth nightly . 9 Active Wegovy 0.5 mg/0.5 mL Pen Inject 0.5 mL (0.5 mg total) under the skin . 4 Active sertraline (ZOLOFT) 100 MG tablet Take 1 (one) tablet (100 mg total) by mouth daily . 3 Active natalizumab (TYSABRI) 300 mg/15 mL injectionIndica tions:MS (multiple sclerosis) Infuse 15 mL (300 mg total) into a venous catheter every 28 days . 15 mL 13 5 Active gabapentin (NEURONTIN) 400 MG capsuleIndicati ons:Multiple sclerosis Take 1 (one) capsule (400 mg total) by mouth See Admin Instructions (Days supply per fill: 90) 2 cap (800mg) am, 1 cap (400mg) noon, 2 cap (800mg) hs Start: 11/14/24. 450 capsule 1 5 Active baclofen (LIORESAL) 20 MG tablet Take 1 (one) tablet (20 mg total) by mouth 3 (three) times a day . 90 tablet 11 5 Active levETIRAcetam (KEPPRA) 500 MG tabletIndicatio ns:Seizures (HCC) Take 2 (two) tablets (1,000 mg total) by mouth 2 (two) times a day . 120 tablet 5 5 Active sertraline (ZOLOFT) 25 MG tablet Take 1 (one) tablet (25 mg total) by mouth daily . Active modafiniL (PROVIGIL) 100 MG tabletIndicatio ns:MS (multiple sclerosis) Take 1 (one) tablet (100 mg total) by mouth daily 1 tablet every morning (fatigue and focus) . 30 tablet 5 5 Active Active Problems Problem Noted Date Diagnosed Date MS (multiple sclerosis) 03/20/2021 Encounters Date Type Department Care Team Description 05/04/2025 Refill [facility], Neuroscience [address] [place] [address] [address] [place] [address] Summer Jared, APARTMENT COMMUNITY ASSISTANT MANAGER MS (multiple sclerosis) (HCC) 04/30/2025 Results Follow-Up [facility], Neuroscience [address] [place] [address] Rd [address] [place] [address] Alexey Kraft MD Stratify JCV Antibody with Index 04/25/2025 1:00 PM EDT Office Visit [facility], Neuroscience [address] [place] [address] Rd [address] [place] [address] Alexey Kraft MD MS (multiple sclerosis) (HCC) (Primary Dx) Discharge Disposition: Home 04/25/2025 10:18 AM EDT - 04/25/2025 11:59 PM EDT Hospital Encounter [facility] MRI [address] [place] [address] Discharge Disposition: Home 04/24/2025 Travel 04/19/2025 Refill [facility], Neuroscience [address] [place] [address] Rd [address] [place] [address] Jared Wheeler, APARTMENT COMMUNITY ASSISTANT MANAGER Seizures (HCC) 03/27/2025 Refill [facility], Neuroscience [address] [place] [address] Rd [address] [place] [address] Alexey Kraft MD from Last 3 Months Family History Medical History Relation Comments Hypertension Brother Alcohol abuse Father Cancer Father Heart disease Father Hypertension Father Migraines Father Post-traumatic stress disorder Father Stroke Father Breast cancer Maternal Aunt 1 Bone cancer Maternal Aunt 2 Hypertension Maternal Aunt 3 Dementia Maternal Grandmother Memory loss Maternal Grandmother Colon cancer Maternal Uncle Depression Mother Diabetes Mother Heart disease Mother Ovarian cancer Mother Lung cancer Other Lupus Paternal Aunt 1 Lupus Paternal Aunt 2 Dementia Paternal Grandmother Memory loss Paternal Grandmother Multiple sclerosis Neg Hx Seizures Neg Hx Relation Status Comments Brother Father Maternal Aunt 1 Maternal Aunt 2 Maternal Aunt 3 Maternal Grandmother Maternal Uncle Mother Other Paternal Aunt 1 Paternal Aunt 2 Paternal Grandmother Social History Tobacco Use Types Packs/Day Years Used Date Smoking Tobacco: Never Smokeless Tobacco: Never Tobacco Cessation:Counseling Given: Not Answered Alcohol Use Standard Drinks/Week Comments Yes 4 (1 standard drink = 0.6 oz pur e alcohol) rarely, PHQ-2 Answer Date Recorded PHQ-9 Total Score 16 10/19/2022 Comments No Sex and Gender Information Value Date Recorded Sex Assigned at Not on file Legal Sex Female 11:23 AM EDT Gender Identity Female 04/15/2021 10:06 AM EDT Sexual Orientation Lesbian 04/15/2021 10 :06 AM EDT Last Filed Vital Signs Vital Sign Reading Time Taken Comments Blood Pressure 118/80 04/25/2025 12:50 PM EDT Pulse 102 04/25/2025 12:50 PM EDT Temperature 36.9 C (98.5 F) 10/24/2024 2:36 PM EST Respiratory Rate 14 10/24/2024 4:31 PM EST Oxygen Saturation 100% 10/24/2024 4:31 PM EST Inhaled Oxygen Concentration - - Weight 115.4 kg (254 lb 6.4 oz) 025 12:50 PM EDT Height 170.2 cm (5' 7 ) 04/25/2025 10:2 6 AM EDT Body Mass Index 39.84 04/25/2025 10:26 AM EDT Plan of Treatment Upcoming Encounters Date Type Department Care Team (Late st Contact Info) Description 11/02/2025 11:00 AM EST Office Visit [facility], Neuroscience [address] [facility] [address] [place] [address] Alexey Kraft MD [address] [facility] [address] [place] [address] Discharge Disposition: Home Health Maintenance Due Date Last Done Comments Tetanus: Every 10yrs 1982 Medicare Wellness Visit 1985 Diabetic Eye Exam 1992 Diabetic Foot Exam 1992 Urine (micro)albumin/creatinine ratio - Diabetes 1992 Hepatitis C Screening 2000 Pap Smear 2003 Cervical Cancer Screening 2012 HPV/Cotest 2012 A1C 10/04/2019 04/03/2019, 03/07, 04/02/2019, Additional history exists Mammogram 2022 Depression Screening/Follow-Up (PHQ-2/9) 10/19/2023 10/19/2022 COVID-19 Vaccine ( season) 2025 02/21/2021, 01/31/2021 Influenza Vaccine (#1) 2025 , 06/18/2023, 07/05/2021, Additional history exists eGFR Diabetes 10/24/2025 10/24/2024, 10/24/2024, 10/12/2023, Additional history exists HIV Screening Completed 03/20/2021 Pneumococcal Vaccine: Ped or At-Risk Aged Out No longer eligible based on patient's age to complete this topic Medical Devices Implanted Type Area Neurodiagnostic Technologist Device Identifier Shelf Expiration Date Model / Serial / Lot Port 8fr Power Isp Attachable Single Lumen [place] - [id number] Implanted:Qty: 1 on 10/26/2022 by Blanco Huang, SUPERVISOR GROUNDS at [facility] Right: Chest Wall [employer] [id number] 01/04/2024 [id number] / / [id number] Procedures Procedure Name Priority Date/Time Associated Diagnosis Comments EXT STRATIFY JCV ANTIBODY WTIH INDEX AND REFLEX TO INHIBITION Routine 04/25/2025 1:49 PM EDT MS (multiple sclerosis) (HCC) MR BRAIN WITHOUT CONTRAST Routine 04/25/2025 11:56 AM EDT Multiple sclerosis (HCC) CHEM 7 Add-On 10/24/2024 2:16 PM EST HIV 1/2 SCREEN (4TH GENERATION) Routine 03/20/2021 1:34 PM EDT MS (multiple sclerosis) (HCC) Mild cognitive impairment, so stated from Last 3 Months or Most Recently Relevant to Health Maintenance Results * Stratify JCV Antibody with Index (04/25/2025 1:49 PM EDT) Bigg Virus Ab Index (Quest) 0.11 index [facility] Jcv Antibody (Quest) NEGATIVE [facility] Comment: Index interpretive criteria: <0.20 negative 0.20-0.40 indeterminate >0.40 positive INTERPRETATION Negative: Antibodies to JCV not detected. Indeterminate: Low level reactivity detected, see Inhibition Assay result below for the final antibody result. Positive: Antibodies to BIGG virus (JCV) detected indicating the patient has been exposed to JCV at an undetermined time. The STRATIFY JCV(R) DxSelect(TM) Antibody Test is an enzyme-linked immunosorbent assay (DEEDEE) designed to detect JCV antibodies to help identify individuals who have been exposed to the virus. Samples with low level reactivity in the detection assay are retested in a confirmation (inhibition) assay to confirm presence or absence of JCV-specific antibodies. Retrospective analyses of post marketing data from various sources, including observational studies and spontaneous reports obtained worldwide, suggest that the risk of developing PML may be associated with relative levels of serum anti-JCV antibody as measured by anti-JCV antibody index.(1) (1) TYSABRI(natalizumab)US Prescribing Information Blood BLOOD SPECIMEN / Unknown 04/25/2025 1:49 PM EDT 04/25/2025 1:49 PM EDT us Alexey Kraft MD LAB BLOOD ORDERABLES Fi nal Result [facility] [employer] [address] [place] [address], * MR Brain Without Contrast (04/25/2025 11:56 AM EDT) Anatomical Region Laterality Modality Head Magnetic Resonan ce 05/01/2025 9:54 AM EDT Impressions 05/01/2025 10:05 AM EDT Multiple hyperintense T2/FLAIR white matter foci, in keeping with history of multiple sclerosis, have not substantially changed since 04/19/2024. No new foci or restricted diffusion. Workstation ID: [id number] Narrative 05/01/2025 10:05 AM EDT EXAMINATION: MR BRAIN WITHOUT CONTRAST HISTORY: Multiple sclerosis (HCC) COMPARISON: MRI brain 04/20/2024 and 04/20/2023. TECHNIQUE: Multiple sclerosis protocol MRI of the brain without contrast. 3 sophia magnet with volumetric FLAIR imaging. CONTRAST: None FINDINGS: Multiple small hyperintense T2/FLAIR periventricular and subcortical white matter foci have not substantially changed in size, number, or signal characteristics since MRI brain 04/19/2024. No new foci, interval corpus callosum volume loss, or restricted diffusion. No midline shift, extra-axial fluid collections, hydrocephalus, or other mass effect. Intracranial flow voids are maintained. No soft tissue abnormalities. Normal marrow signal. Paranasal sinuses and mastoid air cells are well aerated. Procedure Note Jessika Christianson, DO - 05/01/2025 EXAMINATION: MR BRAIN WITHOUT CONTRAST HISTORY: Multiple sclerosis (HCC) COMPARISON: MRI brain 04/20/2024 and 04/20/2023. TECHNIQUE: Multiple sclerosis protocol MRI of the brain without contrast. 3 teslamagnet with volumetric FLAIR imaging. CONTRAST: None FINDINGS: Multiple small hyperintense T2/FLAIR periventricular and subcortical whitematter foci have not substantially changed in size, number, or signalcharacteristics since MRI brain 04/19/2024. No new foci, interval corpuscallosum volume loss, or restricted diffusion. No midline shift, extra-axial fluid collections, hydrocephalus, or othermass effect. Intracranial flow voids are maintained. No soft tissue abnormalities. Normal marrow signal. Paranasal sinuses andmastoid air cells are well aerated. IMPRESSION: Multiple hyperintense T2/FLAIR white matter foci, in keeping with historyof multiple sclerosis, have not substantially changed since 04/19/2024.No new foci or restricted diffusion. Workstation ID: [id number] us Diandra Sutton MD [facility] MRI ORDERABLES Final Resul t * Chem 7 (10/24/2024 2:16 PM EST) Sodium 143 135 - 145 mmol/L 10/24/2024 2:40 PM EST [facility] Potassium 4.3 3.5 - 5.1 mmol/L 10/24/2024 2:40 PM EST [facility] Chloride 106 98 - 108 mmol/L 10/24/2024 2:40 PM EST [facility] Bicarbonate 25 21 - 32 mmol/L 10/24/2024 2:40 PM [facility] Anion Gap 16 10 - 20 mmol/L 10/24/2024 2:40 PM [facility] Glucose 95 65 - 99 mg/dL 10/24/2024 2:40 PM [facility] BUN 10 8 - 25 mg/dL 10/24/2024 2:40 PM [facility] Creatinine 0.65 0.40 - 1.10 mg/dL 10/24/2024 2:40 PM [facility] eGFR 113 >=60 mL/min/1.7 3 m2 10/24/2024 2:40 PM [facility] Comment:Estimated GFR was ca lculated using the 2020 CKD-EPI creatinine equation. BUN/Creatinine Ratio 15.4 10.0 - 20.0 10/24/2024 2:40 PM [facility] Blood BLOOD SPECIMEN / Unknown Venipuncture / Unknown 10/24/2024 2:16 PM EST 10/24/2024 2:21 PM EST [facility] - 10/24/2024 2:40 PM [facility] Services has implemented the eGFR calculation approach that does not have a coefficient for race that conforms to the NKF-ASN Task Force Recommendations. Dewayne Nicole MD LAB BLOOD ORDERABLES F inal Result [facility] [address] [place] [address] * HIV Antibody (HIV1/HIV2) (03/20/2021 1:34 PM EDT) [facility] HIV 1-2 Screen Negative Negative 03/20/2021 8:39 PM EDT [facility] Blood BLOOD SPECIMEN / Unknown Venipuncture / Unknown 03/20/2021 1:34 PM EDT 03/20/2021 1:34 PM EDT [facility] - 03/20/2021 8:39 PM EDT This assay screens for the presence of HIV-1, HIV-2 antibodies and for the presence of HIV-1 antigen. Test performed using [employer] BERTRAM immunoassay system us Alexey Kraft MD LAB BLOOD ORDERABLES Fi nal Result [facility] [address] [place] [address] from Last 3 Months or Most Recently Relevant to Health Maintenance Insurance [place]ICAID [place] MEDIBLUE ESSENTIAL/PLUS/CONNECT/SNP HMO Advance Directives For more information, please contact: [phone] * Full Code - Unverified (Latest Code Status on File) Date Activated Date Inactivated Comments 10/26/2022 12:25 PM 10/26/2022 4:00 PM Care Teams Celery Cutter Relationship Specialty Start Date End Date Ap Santiago MD [address] [place] [id number] PCP - General Family Medicine 04/20/24
--- OUTSIDE RECORDS SUMMARY | 2025-06-10 15:07 | XMS_ITS | Encounter Summary ---
Author Organization [facility] Address [address] [place] [address] Care Team Providers Care Deputy Felony Clerk Name Role Phone Won Jolly DO Primary Care Provider [phone] Ap Santiago MD Primary Care Provider [phone] Encounter Details Date Type Department Care Team (Late st Contact Info) Description 06/18/2021 Care Coordination [facility] [address] [place] [address] Michelle Cotto RN Social History Tobacco Use Types Packs/Day Years [...] Description 11/02/2025 11:00 AM EST Office Visit [facility], Neuroscience [address] [facility] [address] [place] [address] Alexey Kraft MD [address] [facility] [address] [place] [address] Discharge Disposition: Home documented as of this encounter Visit Diagnoses Not on filedocumented in this encounter Care Teams Deputy Felony Clerk Relationship Specialty Start Date End Date Won Jolly DO [address] [place] [address] PCP - General Family Medicine 02/28/21 04/19/24 Ap Santiago MD [address] [place] [id number] PCP - General Family Medicine 04/20/24 documented as of this encounter
--- OUTSIDE RECORDS SUMMARY | 2025-06-10 15:07 | XMS_ITS | Encounter Summary ---
Author Organization [facility] Address [address] [place] [address] Care Team Providers Care Liquid Waste Treatment Plant Operator Name Role Phone Ap Santiago MD Primary Care Provider [phone] Encounter Details Date Type Department Care Team (Late st Contact Info) Description 04/30/2025 Results Follow-Up [facility], Neuroscience [address] [facility] [address] [place] [address] [place] [address] [place] [address] [address] [place] [id number] Stratify JCV Antibody with Index Social History Tobacco Use Types Packs/Day Years Used Date Smoking Tobacco: Never Smokeless Tobacco: Never Alcohol Use Standard Drinks/Week Comments Yes 4 (1 standard drink = 0.6 oz pur e alcohol) rarely, PHQ-2 Answer Date Recorded PHQ-9 Total Score 16 10/19/2022 Comments No Sex and Gender Information Value Date Recorded Sex Assigned at Not on file Legal Sex Female 11:23 AM EDT Gender Identity Female 04/15/2021 10:06 AM EDT Sexual Orientation Lesbian 04/15/2021 10 :06 AM EDT documented as of this encounter Plan of Treatment Upcoming Encounters Date Type Department Care Team (Late st Contact Info) Description 11/02/2025 11:00 AM EST Office Visit [facility], Neuroscience [address] [facility] [place] [address] Alexey Kraft MD [address] [facility] [address] [place] [address] Discharge Disposition: Home documented as of this encounter Visit Diagnoses Not on filedocumented in this encounter Additional Health Concerns Assessment Noted Time PHQ-9 Depression Total Score: 16 023 11:00 AM EST PHQ-2 Depression Total Score: 4 10/19/19 23 11:00 AM EST documented as of this encounter Care Teams Liquid Waste Treatment Plant Operator Relationship Specialty Start Date End Date Ap Santiago MD [address] [place] [phone] PCP - General Family Medicine 04/20/24 documented as of this encounter
--- OUTSIDE RECORDS SUMMARY | 2025-06-10 15:07 | XMS_ITS | Clinical Summary ---
Author Organization [employer] tem Address [id number] [address] [place] [address] Care Team Providers Care Digital Imager Name Role Phone Ap Santiago MD Primary Care Provider [phone] Allergies Active Allergy Reactions Criticality Noted Date Comments Codeine Hallucinations,Other (See Comments) Low 02/17/2006 Confusion, tried to jump out of a window Medications * This document contains information received from the source organization and may not represent a complete record from that organization. gabapentin (NEURONTIN) 400 mg capsule Take 1 capsule (400 mg total) by mouth in the morning and 1 capsule (400 mg total) at noon and 1 capsule (400 mg total) before bedtime. Two capules in the morning, One in the afternoon, and two at bedtime. Active baclofen (LIORESAL) 10 mg tablet Take 2 tablets (20 mg total) by mouth in the morning and 2 tablets (20 mg total) at noon and 2 tablets (20 mg total) before bedtime. Active amitriptyline (ELAVIL) 50 mg tablet Take 3 tablets (150 mg total) by mouth nightly. Active docusate sodium (COLACE) 100 mg capsule Take 1 capsule (100 mg total) by mouth. Active biotin 5,000 mcg tablet,disinteg rating Dissolve on tongue. Active modafiniL (PROVIGIL) 100 mg tablet Take 1 tablet (100 mg total) by mouth in the morning. Active LORazepam (ATIVAN) 0.5 mg tabletIndicatio ns:Acute anxiety Take 1 tablet (0.5 mg total) by mouth daily as needed for anxiety. 15 tablet 09/15/2021 Active levETIRAcetam (KEPPRA) 500 mg tablet Take 2 tablets (1,000 mg total) by mouth in the morning and 2 tablets (1,000 mg total) before bedtime. 09/12/2021 Active metFORMIN (GLUCOPHAGE) 500 mg tablet Take 1 tablet (500 mg total) by mouth in the morning and 1 tablet (500 mg total) before bedtime. 11/09/2022 Active omeprazole (PriLOSEC) 20 mg capsule Take 1 capsule (20 mg total) by mouth every morning before breakfast. Active atorvastatin (LIPITOR) 40 mg tablet Take 1 tablet (40 mg total) by mouth in the morning. Active ARIPiprazole (ABILIFY) 5 mg tabletIndicatio ns:Major depressive disorder, recurrent episode, moderate (CMS-HCC) TAKE 1 TABLET BY MOUTH EVERY MORNING 90 tablet 3 10/23/2024 Active WEGOVY 1 mg/0.5 mL pen injector See Instructions, INJECT 1 MG UNDER THE SKIN ONCE WEEKLY, # 6 mL, Refills(s) 0, Pharmacy: [facility] [id number], 165, cm, 01/16/25 9:50:00 EDT, Height/Length Dosing, 117.5, kg, 01/16/25 9:50:00 EDT, Weight Dosing 01/24/2025 Active sertraline (ZOLOFT) 100 mg tabletIndicatio ns:Major depressive disorder, recurrent episode, moderate (CMS-HCC),Postt raumatic stress disorder Take 1 tablet (100 mg total) by mouth in the morning. 90 tablet 3 05/03/2025 Active sertraline (ZOLOFT) 50 mg tablet Take 1 tablet (50 mg total) by mouth in the morning. Take with 100 mg tablet daily. 90 tablet 3 05/03/2025 Active Active Problems Problem Noted Date Diagnosed Date Seizure-like activity 10/20/2021 Multiple sclerosis 05/07/2020 Major depressive disorder, recurrent episode, mo derate 02/01/2018 Posttraumatic stress disorder 02/01/2018 Encounters * This document contains information received from the source organization and may not represent a complete record from that organization. Date Type Department Care Team Description 05/29/2025 Travel 05/24/2025 10:00 AM EDT Infusion [facility] - Medical Oncology [address] [place] [phone] Multiple sclerosis (Primary Dx) 05/23/2025 Travel 05/15/2025 Travel 05/01/2025 Travel 04/26/2025 10:00 AM EDT Infusion [facility] - Medical Oncology [address] [place] [phone] Multiple sclerosis (Primary Dx) 04/26/2025 Travel 04/24/2025 Orders Only [facility] - Medical Oncology [address] [place] [phone] Leticia Reed, PIZZA DRIVER 03/29/2025 10:00 AM EDT Infusion [facility] - Medical Oncology [address] [place] [phone] Multiple sclerosis (Primary Dx) 03/29/2025 Travel 03/21/2025 Travel from Last 3 Months Social History Tobacco Use Types Packs/Day Years [...] Sign Reading Time Taken Comments Blood Pressure 136/82 05/24/2025 10:05 AM EDT Pulse 102 05/24/2025 10:05 AM EDT Temperature 36.6 C (97.9 F) 05/24/2025 10:05 AM EDT Respiratory Rate 20 05/24/2025 10:0 5 AM EDT Oxygen Saturation 100% 05/24/2025 10: 05 AM EDT Inhaled Oxygen Concentration - - Weight 115.3 kg (254 lb 3.2 oz) 025 10:05 AM EDT Height 170.2 cm (5' 7.01 ) 05/24/2025 1 0:05 AM EDT Body Mass Index 39.8 05/24/2025 10:05 AM EDT Plan of Treatment Upcoming Encounters Date Type Department Care Team (Late st Contact Info) Description 06/21/2025 10:00 AM EDT Infusion [facility] C[facility] - Medical Oncology [address] [place] [address] Health Maintenance Due Date Last Done Comments Depression Screening 1994 Adult BMI Follow Up Plan 2000 DTaP,Tdap and Td Vaccines (1 - Tdap) 2001 COVID-19 Vaccine (3 - 2024-2 6 season) 2025 02/21/2021, 01/31/2021 Influenza Vaccine 05/07/2025 05/22/2024, , 07/05/2021, Additional history exists Adult BMI Screening 05/24/2026 05/24/2025 Tobacco Screening 05/24/2026 05/24/2025 Medical Devices Not on file Insurance [place]ICAID [place] [employer] [facility] MEDICARE Care Teams Digital Imager Relationship Specialty Start Date End Date Ap Santiago MD [address] [place] [address] PCP - General 01/26/24
--- OUTSIDE RECORDS SUMMARY | 2025-06-10 15:07 | XMS_ITS | Encounter Summary ---
Author Organization [employer] Address [id number] [address] [place] [address] Care Team Providers Care Research Home Economist Name Role Phone Ap Santiago MD Primary Care Provider [phone] Encounter Details Date Type Department Care Team ([facility] Contact Info) Description 05/05/2022 Orders Only Naheed Cee [facility] - Medical Oncology [address] [place] [address] Saira Pickett RN Multiple sclerosis ([facility]) (Primary Dx) Social History Tobacco Use Types [...] have Coronavirus / COVID-19? No / Unsure 05/05/2022 12:47 PM EDT documented as of this encounter Plan of Treatment Upcoming Encounters Date Type Department Care Team ([facility] Contact Info) Description 06/21/2025 10:00 AM EDT Infusion Naheed Cee [facility] - Medical Oncology [address] [place] [address] documented as of this encounter Results * (ABNORMAL) Hepatic function panel (11/12/2022 10:06 AM EST) Pathologist [facility] Alkaline phosphatase 121 39 - 130 U/L 11/12/2022 12:21 PM [facility] AST 75(H) 0 - 41 U/L 11/12/2022 12:21 PM [facility] ALT 88(H) 0 - 31 U/L 11/12/2022 12:21 PM [facility] Total Bilirubin 0.3 0.3 - 1.2 mg/dL 11/12/2022 12:21 PM [facility] Bilirubin, direct <0.1 0.0 - 0.4 mg/dL 11/12/2022 12:21 PM [facility] Albumin 4.0 3.2 - 5.3 g/dL 11/12/2022 12:21 PM [facility] Total Protein 8.0 6.0 - 8.0 g/dL 11/12/2022 12:21 PM [facility] PLASMA 11/12/2022 10:0 6 AM EST 11/12/2022 10:11 AM EST us Alexey Kraft MD LAB BLOOD ORDERABLES Fi nal Result [address], [place] [address] * (ABNORMAL) CBC with auto diff (11/12/2022 10:06 AM EST) [facility] White Blood Cells 11.4(H) 4.0 - 11.0 X10E9/L 11/12/2022 10:52 AM [facility] Comment: ADJUSTED FOR NUCLEATED RBC Corrected on 11/12 AT 1052: Previously reported as 11.5 RBC count 5.05 3.80 - 5.20 X10E12/L 11/12/2022 10:23 AM [facility] Hemoglobin 13.5 11.7 - 15.5 g/dL 11/12/2022 10:23 AM [facility] Hematocrit 40.7 35 - 47 % 11/12/2022 10:23 AM [facility] MCV 81 80 - 100 fL 11/12/2022 10:23 AM [facility] MCH 26.7(L) 27 - 34 pg 11/12/2022 10:23 AM [facility] MCHC 33.1 32 - 36 g/dL 11/12/2022 10:23 AM [facility] RDW 16.2(H) 11.5 - 15.0 % 11/12/2022 10:23 AM [facility] Platelets 298 150 - 450 X10E9/L 11/12/2022 10:23 AM [facility] MPV 6.7(L) 7 - 12 fL 11/12/2022 10:23 AM [facility] Seg neutrophil 41.0 % 11/12/2022 10:52 AM [facility] Lymphocyte 47.0 % 11/12/2022 10:52 AM [facility] Monocytes 4.0 % 11/12/2022 10:52 AM [facility] Eosinophil 4.0 % 11/12/2022 10:52 AM [facility] Basophil 1.0 % 11/12/2022 10:52 AM [facility] Lymphocyte, atypical 3.0 % 11/12/2022 10:52 AM [facility] Nucleated RBC 1.0 0.0 - 1.0 /100 WBC 11/12/2022 10:52 AM [facility] Neutrophils Absolute (M) 4.7 1.5 - 6.6 X10E9/L 11/12/2022 10:52 AM [facility] Lymphocytes Absolute 5.6(H) 1.0 - 3.5 X10E9/L 11/12/2022 10:52 AM [facility] Monocytes Absolute 0.5 0 - 0.9 X10E9/L 11/12/2022 10:52 AM [facility] Eosinophils Absolute 0.5(H) 0.0 - 0.4 X10E9/L 11/12/2022 10:52 AM EST [facility] Basophils Absolute 0.1 0.0 - 0.2 X10E9/L 11/12/2022 10:52 AM EST [facility] Polychromasia 1+(A) NONE^NONE 11/12/2022 10:52 AM EST [facility] Stomatocyte 1+(A) NONE^NONE 11/12/2022 10:52 AM [facility] Blood / Unknown 11/12/2022 1 0:06 AM EST 11/12/2022 10:11 AM EST us Alexey Kraft MD LAB BLOOD ORDERABLES Ed ited Result - Final REY [facility] [address] [place] [address] documented in this encounter Visit Diagnoses Diagnosis Multiple sclerosis- Primary documented in this encounter Care Teams Research Home Economist Relationship Specialty Start Date End Date Ap Santiago MD [address] [place] [address] PCP - General 01/26/24 documented as of this encounter
--- OUTSIDE RECORDS SUMMARY | 2025-06-10 15:07 | XMS_ITS | Encounter Summary ---
Author Organization [facility] Address [address] [place] [address] Care Team Providers Care Sr. Strategic Sourcing Manager Name Role Phone Won Jolly DO Primary Care Provider [phone] Ap Santiago MD Primary Care Provider [phone] Encounter Details Date Type Department Care Team (Late st Contact Info) Description 03/26/2021 Abstract [facility] Physician Group, Neuroscience [address] [place], [place] [id number] Alexey Kraft MD [address] [place] [address] Social History Tobacco Use Types Packs/Day Years Used Date Smoking Tobacco: Never Smokeless Tobacco: Never Alcohol Use Standard Drinks/Week Comments Yes 0 (1 standard drink = 0.6 oz pur e alcohol) rarely, Comments Unknown Sex and Gender Information Value [...] have Coronavirus / COVID-19? No / Unsure 03/20/2021 10:39 AM EDT documented as of this encounter Plan of Treatment Upcoming Encounters Date Type Department Care Team (Late st Contact Info) Description 11/02/2025 11:00 AM EST Office Visit [facility]ician [facility], Neuroscience [address] [place] [address] Alexey Kraft MD [address] [place] [address] Discharge Disposition: Home documented as of this encounter Procedures Procedure Name Priority Date/Time Associated Diagnosis Comments EXT STRATIFY JCV ANTIBODY WTIH INDEX AND REFLEX TO INHIBITION Routine 03/20/2021 documented in this encounter Results * Stratify JCV Antibody with Index (03/20/2021) JCV Ab by Inhibition Interpretation Negative Negative [facility] Stratify JCV Ab (with Index) w/RFL Inhibition Index Value 0.18 [facility] JCV Antibody Negative Negative, Indeterminate [facility] Blood 03/20/2021 us Alexey Kraft MD LAB BLOOD ORDERABLES Fi nal Result [facility] [address] [id number] documented in this encounter Visit Diagnoses Not on filedocumented in this encounter Care Teams Sr. Strategic Sourcing Manager Relationship Specialty Start Date End Date Won Jolly DO [address] [place] [address] PCP - General Family Medicine 02/28/21 04/19/24 Ap Santiago MD [facility] [facility] [place] [place] [address] [place] [address] PCP - General Family Medicine 04/20/24 documented as of this encounter
--- OUTSIDE RECORDS SUMMARY | 2025-06-10 15:07 | XMS_ITS | Encounter Summary ---
Author Organization [facility] Address [address] [place] [address] Care Team Providers Care General Labor Name Role Phone Ap Santiago MD Primary Care Provider [phone] Encounter Details Date Type Department Care Team (Late st Contact Info) Description 05/09/2024 Abstract [facility] Physician Group, Neuroscience [address] [place] [address] Alfonso Pop MA Social History Tobacco Use Types Packs/Day Years [...] Description 11/02/2025 11:00 AM EST Office Visit [facility]ician [facility], Neuroscience [address] [facility] [address] [place] [address] Alexey Kraft MD [address] [place] [address] Discharge Disposition: Home documented as of this encounter Procedures Procedure Name Priority Date/Time Associated Diagnosis Comments EXT STRATIFY JCV ANTIBODY WTIH INDEX AND REFLEX TO INHIBITION Routine 04/20/2024 documented in this encounter Results * Stratify JCV Antibody with Index (04/20/2024) JCV Ab by Inhibition Interpretation Negative Negative [facility] Stratify JCV Ab (with Index) w/RFL Inhibition Index Value 0.13 [facility] JCV Antibody Negative Negative, Indeterminate [facility] Blood 04/20/2024 us Historical Provider LAB BLOOD ORDERABLES Radhika l Result [facility] [address] [place] [address] documented in this encounter Visit Diagnoses Not on filedocumented in this encounter Additional Health Concerns Assessment Noted Time PHQ-9 Depression Total Score: 16 023 11:00 AM EST PHQ-2 Depression Total Score: 4 10/19/19 23 11:00 AM EST documented as of this encounter Care Teams General Labor Relationship Specialty Start Date End Date Ap Santiago MD [facility] [place] [address] PCP - General Family Medicine 04/20/24 documented as of this encounter
--- OUTSIDE RECORDS SUMMARY | 2025-06-10 15:07 | XMS_ITS | Encounter Summary ---
Author Organization [facility] Address [address] [place] [address] Care Team Providers Care Distiller Name Role Phone Won Jolly DO Primary Care Provider [phone] Ap Santiago MD Primary Care Provider [phone] Encounter Details Date Type Department Care Team (Late st Contact Info) Description 10/20/2023 Abstract [facility] Physician Group, Neuroscience [address] [place] [address] Marilee Castillo LPN Social History Tobacco Use Types Packs/Day [...] Description 11/02/2025 11:00 AM EST Office Visit [facility] Physician Group, Neuroscience [address] [place] [address] Alexey Kraft MD [address] [place] [address] Discharge Disposition: Home documented as of this encounter Procedures Procedure Name Priority Date/Time Associated Diagnosis Comments EXT STRATIFY JCV ANTIBODY WTIH INDEX AND REFLEX TO INHIBITION Routine 10/12/2023 documented in this encounter Results * Stratify JCV Antibody with Index (10/12/2023) JCV Ab by Inhibition Interpretation Negative Negative [facility] Stratify JCV Ab (with Index) w/RFL Inhibition Index Value 0.15 [facility] JCV Antibody Negative Negative, Indeterminate [facility] Blood 10/12/2023 us Alexey Kraft MD LAB BLOOD ORDERABLES Fi nal Result [facility] documented in this encounter Visit Diagnoses Not on filedocumented in this encounter Additional Health Concerns Assessment Noted Time PHQ-9 Depression Total Score: 16 023 11:00 AM EST PHQ-2 Depression Total Score: 4 10/19/19 23 11:00 AM EST documented as of this encounter Care Teams Distiller Relationship Specialty Start Date End Date Won Jolly DO [address] [place] [address] PCP - General Family Medicine 02/28/21 04/19/24 Ap Santiago MD [facility] [place] [address] PCP - General Family Medicine 04/20/24 documented as of this encounter
--- OUTSIDE RECORDS SUMMARY | 2025-06-10 15:07 | XMS_ITS | Encounter Summary ---
Author Organization [employer] Address [id number] [address] [place] [address] Care Team Providers Care Supervisor Drawing Name Role Phone Ap Santiago MD Primary Care Provider [phone] Encounter Details Date Type Department Care Team ([facility] Contact Info) Description 07/30/2021 Abstract Naheed Jaye Valentin [facility] - Medical Oncology [address] [place] [phone] Tala Caldera Social History Tobacco Use Types Packs/Day Years Used Date Smoking Tobacco: Never Assessed Childcare Answer Date Recorded Childcare Unknown 02/13/2019 [...] have Coronavirus / COVID-19? No / Unsure 07/25/2021 9:45 AM EST documented as of this encounter Plan of Treatment Upcoming Encounters Date Type Department Care Team ([facility] Contact Info) Description 06/21/2025 10:00 AM EDT Infusion Naheed Valentin [facility] - Medical Oncology [address] [place] [phone] documented as of this encounter Visit Diagnoses Not on filedocumented in this encounter Care Teams Supervisor Drawing Relationship Specialty Start Date End Date Ap Santiago MD [address] [place] [address] PCP - General 01/26/24 documented as of this encounter
--- OUTSIDE RECORDS SUMMARY | 2025-06-10 15:08 | XMS_ITS | CCD ---
Author Organization [facility] Care Team Providers Care Unix Analyst Name Role Phone HOUSE, SR WON Masters Primary Care Unavailable VICTORINA BUSTOS Consulting Unavaila ble BUSTOS, VICTORINALORA MIDDLETON Admitting Unavaila ble BUSTOS VICTORINALORA MIDDLETON Attending Unavaila ble ALYCE CARDENAS Consulting Unavailable CEBORIS RUTLEDGE Consulting Unavailable House, Sr Won Masters Primary Care Provider House, Sr Won Masters Primary Care Provider House DO, Won Masters Primary Care Provider House DO, Sr Won Masters Primary Care Provider [phone] BRITNI BOB Referring Unavailable HOUSE, SR WON Masters Primary Care Unavailable LISBETHBRITNI MARTIN Referring Unavailable HOUSE, SR WON Masters Primary Care Unavailable LISBETHBRITNI MARTIN Referring Unavailable HOUSE, SR WON Masters Primary Care Unavailable BRI KRAFT Referring Unavailable HOUSE, SR WON Masters Primary Care Unavailable House DO, Won Masters Primary Care Provider House DO, Won Masters Primary Care Provider AARON, DR MEDARDO Kimball Attending Unavailabl ALHAJI Hartley Consulting Unavailable AARON, DR MEDARDO Kimball Admitting Unavailabl e HOUSE, DR FARIAS Primary Care Unavailable Jennifer Jaimes Consulting Unavailable SOTO FLOR Admitting Unavailable LANRE WALLACE Consulting Unavailable SOTO FLOR Attending Unavailable HOUSE, DR FARIAS Primary Care Unavailable SOTO FLOR Consulting Unavailable Jennifer Jaimes Consulting Unavailable ALHAJI HERNANDEZ Consulting Unavailable MARKER, DR REYES Admitting Unavailable HOUSE, DR FARIAS Primary Care Unavailable MARKER, DR REYES Attending Unavailable MARKER, DR REYES Consulting Unavailable Aamir Bucio Consulting Unavailable HOUSE, WON Masters Primary Care Unavailable HOUSE, WON P Attending Unavailable Rex Hamm Primary Care Physician FERDINAND UMAÑA Attending Unavailable WON HERNANDEZ Primary Care Unavailable Hansel SOUZA, Rex Primary Care Provider [phone] Rex Hamm MD Primary Care Provider Won Hernandez DO Primary Care Provider Rex Hamm MD Primary Care Provider Rex Hamm Attending Unavailable Rex Hamm Admitting Unavailable Rex Hamm Attending Unavailable Rex Hamm Admitting Unavailable EVARISTO, BOARD WRITER ANTONETTE EErick Attending Unavailab conrad LOERA, BOARD WRITER ANTONETTE Guerin Admitting Unavailab MD Rex Holland Referring Unavailable EVARISTO, BOARD WRITER ANTONETTE Guerin Attending Unavailab conrad LOERA BOARD WRITER ANTONETTE Guerin Admitting Unavailab conrad LOERA, BOARD WRITER ANTONETTE Guerin Attending Unavailab MD Rex Holland Admitting Unavailable MD Rex Hamm Attending Unavailable EVARISTO, BOARD WRITER ANTONETTE Guerin Attending Unavailab le CarlosAvelina medina Attending Unavailable CarlosAvelina medina Attending Unavailable Carlos, Avelina L Admitting Unavailable Carlos, Avelina L Primary Care Physician Lili Hatfield Attending Unavailable Lili Hatfield Attending Unavailable Lili Hatfield Referring Unavailable Lili Hatfield Attending Unavailable Llii Hatfield Admitting Unavailable REX HAMM Primary Care Unavailable RAJAN SUTTON Referring Unavailable RAJAN SUTTON Attending Unavailable REX HAMM Primary Care Unavailable BRI KRAFT Admitting Unavailab REX Holland Primary Care Unavailable BRI KRAFT Attending Unavailab BRI Vasquez Admitting Unavailab le HANSEL REX Primary Care Unavailable CHARLINE MOLINA Attending Unavaila ble CarlosAvelina medina Attending Unavailable Carlos, Avelina L Admitting Unavailable Carlos, Avelina L Attending Unavailable Rex Hamm Attending Unavailable Rex Hamm Attending Unavailable Rex Hamm Admitting Unavailable Rex Hamm Attending Unavailable DALJIT Gonzalez Attending Unavailable Ross, Rex E. Attending Unavailable Ross, Rex E. Attending Unavailable SURESH GALE Attending Unavailable WON HERNANDEZ Referring Unavailable ROSS, REX E Primary Care Unavailable CYNDISANCHO FERNANDES Attending Unavailable ROSS, REX E Referring Unavailable ROSS, REX E Primary Care Unavailable BRI KRAFT Referring Unavailab le ROSS, REX E Primary Care Unavailable CYNDI, SANCHO Morrow Attending Unavailable ROSS, REX E Referring Unavailable ROSS, REX E Primary Care Unavailable BRI KRAFT Referring Unavailab le ROSS, REX E Primary Care Unavailable BRI KRAFT Referring Unavailab le ROSS, REX E Primary Care Unavailable CYNDI, SANCHO Morrow Attending Unavailable ROSS, REX E Referring Unavailable ROSS, REX E Primary Care Unavailable BRI KRAFT Referring Unavailab le ROSS, REX E Primary Care Unavailable CYNDISANCHO FERNANDES Attending Unavailable ROSS, REX E Referring Unavailable ROSS, REX E Primary Care Unavailable CYNDISANCHO FERNANDES Attending Unavailable ROSS, REX E Referring Unavailable ROSS, REX E Primary Care Unavailable BRI KRAFT Referring Unavailab le ROSS, REX E Primary Care Unavailable CYNDISANCHO FERNANDES Attending Unavailable ROSS, REX E Referring Unavailable ROSS, REX E Primary Care Unavailable ROSS, REX E Primary Care Unavailable ROSS, REX E Primary Care Unavailable BRI KRAFT Referring Unavailab le ROSS, REX E Primary Care Unavailable CYNDISANCHO FERNANDES Attending Unavailable ROSS, REX E Referring Unavailable ROSS, REX E Primary Care Unavailable CYNDISANCHO FERNANDES Attending Unavailable ROSS, REX E Referring Unavailable ROSS, REX E Primary Care Unavailable BRI KRAFT Referring Unavailab le ROSS, REX E Primary Care Unavailable SURESH GALE Attending Unavailable ROSS, REX E Referring Unavailable ROSS, REX E Primary Care Unavailable CYNDISANCHO FERNANDES Attending Unavailable ROSS, REX E Referring Unavailable ROSS, REX E Primary Care Unavailable BRI KRAFT Referring Unavailab le ROSS, REX E Primary Care Unavailable CYNDISANCHO FERNANDES Attending Unavailable ROSS, REX E Referring Unavailable ROSS, REX E Primary Care Unavailable BRI KRAFT Referring Unavailab le ROSS, REX E Primary Care Unavailable CYNDISANCHO FERNANDES Attending Unavailable ROSS, REX E Referring Unavailable ROSS, REX E Primary Care Unavailable CYNDISANCHO FERNANDES Attending Unavailable ROSS, REX E Referring Unavailable ROSS, REX E Primary Care Unavailable BRI KRAFT Referring Unavailab le ROSS, REX E Primary Care Unavailable SURESH GALE Attending Unavailable ROSS, REX E Referring Unavailable ROSS, REX E Primary Care Unavailable BRI KRAFT Referring Unavailab le ROSS, REX E Primary Care Unavailable CYNDISANCHO Attending Unavailable ROSS, REX E Referring Unavailable ROSS, REX E Primary Care Unavailable BRI KRAFT Referring Unavailab le ROSS, REX E Primary Care Unavailable CYNDISANCHO FERNANDES Attending Unavailable ROSS, REX E Referring Unavailable ROSS, REX E Primary Care Unavailable CYNDISANCHO FERNANDES Attending Unavailable ROSS, REX E Referring Unavailable ROSS, REX E Primary Care Unavailable BRI KRAFT Referring Unavailab le ROSS, REX E Primary Care Unavailable CYNDISANCHO FERNANDES Attending Unavailable ROSS, REX E Referring Unavailable ROSS, REX E Primary Care Unavailable Allergies Allergy Classification Reported Allergen(s) Allergy Type Date of Onset Reaction(s) Facility (20 sources) Codeine; Translations: [CODEINE] Drug Allergy 6 Other (See Comments), Hallucinations (finding), Hallucinations [facility] Medications Current Medications Medication Drug Class(es) Dates Sig (Normalized) Sig (Original) 0.5 ML semaglutide 1 MG/ML Auto-Injector [Wegovy] (3 sources) Start: 05-09-2024 inject 0.5 mg by subcutaneous injection every week Wegovy (0.5 mg dose) subcutaneous solution See Instructions, INJECT 0.5 MG UNDER THE SKIN ONCE WEEKLY, # 2 mL, Refills(s) 0, Pharmacy: [facility] [id number], 165, cm, 03/07/24 10:24:00 EDT, Height/Length Dosing, 125.7, kg, 03/07/24 10:24:00 EDT, Weight Dosing Start Date: 05/09/24 Status: Ordered Start: 02-15-2024 inject 0.5 mg by sub cutaneous injection every week Wegovy (0.5 mg dose) subcutaneous solution 0.5 mg, SubCutaneous, qWeek, # 12 EA, Refills(s) 0, Pharmacy: [facility] [id number], 165, cm, 02/15/24 9:11:00 EDT, Height/Length Dosing, 126.9, kg, 02/15/24 9:11:00 EDT, Weight Dosing Start Date: 02/15/24 Status: Ordered 0.5 ML semaglutide 2 MG/ML Auto-Injector [Wegovy] (5 sources) Start: 01-24-2025 inject 1 mg by subcutaneous injection every week Wegovy (1 mg dose) subcutaneous solution See Instructions, INJECT 1 MG UNDER THE SKIN ONCE WEEKLY, # 6 mL, Refills(s) 0, Pharmacy: [facility] [id number], 165, cm, 01/16/25 9:50:00 EDT, Height/Length Dosing, 117.5, kg, 01/16/25 9:50:00 EDT, Weight Dosing Start Date: 01/24/25 Status: Ordered Quantity: 6.0 Unit: mL Repeat number: 1 Start: 10-17-2024 inject 1 mg by subcu taneous injection every week Wegovy (1 mg dose) subcutaneous solution 1 mg, SubCutaneous, qWeek, # 12 EA, Refills(s) 0, Pharmacy: [facility] [id number], 165, cm, 10/17/24 10:07:00 EST, Height/Length Dosing, 116.3, kg, 10/17/24 10:07:00 EST, Weight Dosing Start Date: 10/17/24 Status: Ordered Quantity: 12.0 Unit: EA Repeat number: 1 acetaminophen 325 mg / HYDROcodone bitartrate 5 mg oral tablet (4 sources) Opioid Agonist Start: 03-04-2022 HYDROcodone-acetaminophen (NORCO) 5-325 mg per tablet amitriptyline hydrochloride 150 mg oral tablet (20 sources) Tricyclic Antidepressant Start: 06-18-2023 take 3 tablets by mouth once daily at bedtime amitriptyline 50 mg Tab 150 mg = 3 tab(s), Oral, Once a day (at bedtime), Refills(s) 0 Start Date: 06/18/23 Status: Ordered Start: 04-04-2019 take 1 tablet by xi th once daily amitriptyline (ELAVIL) 150 MG tablet Take 1 (one) tablet (150 mg total) by mouth nightly . 04/04/2019 Active End: 10-24-2024 take 1 tablet by mouth once daily, then take 3 tablets by mouth at bedtime amitriptyline (ELAVIL) 50 MG tablet Take 1 (one) tablet (50 mg total) by mouth nightly 3 tablets at bedtime (pain,sleep,depression) . 10/24/2024 Discontinued (Patient Discharge) ARIPiprazole 5 mg oral tablet (20 sources) Atypical Antipsychotic Start: 10-23-2024 take 1 tablet by mouth once daily in the morning ARIPiprazole (ABILIFY) 5 mg tablet Indications: Major depressive disorder, recurrent episode, moderate (CMS-HCC) TAKE 1 TABLET BY MOUTH EVERY MORNING 90 tablet 3 10/23/2024 Active Start: 04-19-2023 End: 10-12-2023 take 1 tablet by mouth once daily in the morning ARIPiprazole (ABILIFY) 5 mg tablet Indications: Major depressive disorder, recurrent episode, moderate (CMS-HCC) TAKE 1 TABLET BY MOUTH EVERY MORNING 90 tablet 3 10/23/2024 Active End: 10-19-2022 ARIPiprazole (ABILIFY) 2 MG tablet Take 2.5 (two and a half) tablets (5 mg total) by mouth daily . 0 10/19/2022 Discontinued (Dose adjustment) take 1 tablet by xi th once daily ARIPiprazole (ABILIFY) 2 MG tablet Take 2 mg by mouth daily . 0 Active aspirin 81 mg delayed release oral tablet (5 sources) Platelet Aggregation Inhibitor, Nonsteroidal Anti-inflammatory Drug Start: 04-04-2019 take 1 tablet by mouth once daily as needed for pain aspirin 81 MG EC tablet Take 1 tablet by mouth daily as needed for Pain 30 tablet 3 04/04/2019 Active atorvastatin 40 mg oral tablet (20 sources) HMG-CoA Reductase Inhibitor Start: 09-13-2023 take 1 tablet by mouth once daily atorvastatin 40 mg Tab See Instructions, TAKE 1 TABLET BY MOUTH DAILY, # 90 tab(s), Refills(s) 1, Pharmacy: [facility] [id number], 165, cm, 10/17/24 10:07:00 EST, Height/Length Dosing, 116.3, kg, 10/17/24 10:07:00 EST, Weight Dosing Start Date: 12/04/24 Status: Ordered Quantity: 90.0 Unit: tab(s) Repeat number: 2 Start: 08-26-2017 take 1 tablet by xi th once daily atorvastatin (LIPITOR) 20 MG tablet Take 1 tablet by mouth nightly 30 tablet 5 08/26/2017 Active baclofen 20 mg oral tablet (20 sources) gamma-Aminobutyric Acid-ergic Agonist Start: 03-17-2024 End: 03-27-2025 take 1 tablet by mouth three times daily baclofen (LIORESAL) 20 MG tablet Take 1 (one) tablet (20 mg total) by mouth 3 (three) times a day . 90 tablet 11 03/28/2025 Active Start: 06-18-2023 take 1-2 tablets by mouth three times daily BACLOFEN 10 MG TABLET BACLOFEN 10 MG TABLET, take 1 TO 2 tablet by mouth three times a day Start Date: 06/18/23 Status: Ordered Repeat number: 1 Start: 08-26-2017 baclofen (SANDOVAL ESAL) 10 MG tablet Take 1 po am and bedtime and 2 in the afternoon 120 tablet 5 08/26/2017 Active baclofen (LIORES AL) 10 mg tablet Take 2 tablets (20 mg total) by mouth in the morning and 2 tablets (20 mg total) at noon and 2 tablets (20 mg total) before bedtime. Active benzonatate 200 mg oral capsule (1 source) Non-narcotic Antitussive Start: 10-25-2023 End: 11-04-2023 take 1 capsule by mouth three times daily benzonatate 200 mg oral capsule 200 mg = 1 cap(s), Oral, TID, X 10 day(s), # 30 cap(s), Refills(s) 0, Pharmacy: [facility] #[id number], 165, cm, 10/25/23 13:01:00 EST, Height/Length Dosing, 120, kg, 10/25/23 13:01:00 EST, Weight Dosing Start Date: 10/25/23 Stop Date: 11/04/23 Status: Ordered biotin 5 mg oral capsule (20 sources) Start: 06-18-2023 take 2 capsules by mouth once daily in the morning biotin 5000 mcg oral capsule See Instructions, 2 caps every morning, Refills(s) 0 Start Date: 06/18/23 Status: Ordered Repeat number: 1 biotin 5,000 mcg tablet,disintegrating Dissolve on tongue. Active take 3 capsules by m outh once daily in the morning biotin 5 mg cap Take 3 (three) capsules (15 mg total) by mouth once daily Biotin 5,000 mcg 3 capsules every morning for hair loss . Active cholecalciferol 0.025 mg oral tablet (20 sources) Vitamin D cholecalciferol, vitamin D3, 1,000 unit tablet Take 10 (ten) tablets (10,000 Units total) by mouth daily . Active dimethyl fumarate 240 mg delayed release oral capsule (18 sources) Start: 017 End: take 1 capsule by mouth twice daily dimethyl fumarate (TECFIDERA) 240 MG delayed release capsule Take 1 capsule by mouth 2 times daily 60 capsule 5 08/12/2017 Active diphenhydrAMINE (8 sources) Histamine-1 Receptor Antagonist Start: 025 End: 25 mg, intravenous, Every 15 min PRN, emergency use for urticaria, pruritus, or flushing (from treatment/therapy plan)., Starting on Wed09/08/24 at 0956, For 2 doses, Look-alike/sound-alike medication - verify indication for use. Start: 07-16-2021 End: 07-16-2021 diphenhydrAMINE (BENADRYL) t ablet 50 mg Start: 07-16-2021 End: 07-16-2021 diphenhydrAMINE (BENADRYL) t ablet 50 mg Start: 07-16-2021 End: 07-16-2021 diphenhydrAMINE (BENADRYL) t ablet 50 mg Start: 07-16-2021 End: 07-16-2021 diphenhydrAMINE (BENADRYL) t ablet 50 mg Start: 05-21-2021 End: 05-21-2021 diphenhydrAMINE (BENADRYL) t ablet 50 mg Start: 05-21-2021 End: 05-21-2021 diphenhydrAMINE (BENADRYL) t ablet 50 mg Start: 05-21-2021 End: 05-21-2021 diphenhydrAMINE (BENADRYL) t ablet 50 mg Colace (20 sources) Start: 06-18-2023 Colace Refills (s) 0 Start Date: 06/18/23 Status: Ordered Repeat number: 1 Start: 06-18-2023 Colace Refills (s) 0 Start Date: 06/18/23 Status: Ordered docusate sodium (COLACE) 100 mg capsule Take 1 capsule (100 mg total) by mouth. Active donepezil hydrochloride 10 mg oral tablet (20 sources) Start: 06-18-2023 End: 10-12-2023 take 1 tablet by mouth at bedtime donepezil 10 mg Tab take 1 tablet by mouth at bedtime Start Date: 06/18/23 Status: Ordered take 1 tablet by mouth once amador y donepezil (ARICEPT) 10 mg tablet Take 1 tablet (10 mg total) by mouth nightly. 0 Active 1 ml EPINEPHrine 1 mg/ml injection (1 source) alpha-Adrenergic Agonist, beta-Adrenergic Agonist, Catecholamine Start: 09-08-2024 End: 09-09-2024 0.3 mg, intramuscular, Every 5 min PRN, emergency use for dypsnea, wheezing, stridor, or hypotension (at least 30% decrease in systolic BP) (from treatment/therapy plan)., Starting on Wed09/08/24 at 0956, For 3 doses, Give IM into the anterolateral aspect of the middle third of the thigh (preferred) up to 3 doses (total of 0.9 mg). Activate emergency response Look-alike/sound-alike medication - verify indication for use. ferrous sulfate 325 mg delayed release oral tablet (2 sources) Start: 03-15-2025 take 1 tablet by mouth once daily ferrous sulfate 325 mg oral enteric coated tablet 325 mg = 1 tab(s), Oral, Daily, # 90 tab(s), Refills(s) 3, Pharmacy: [facility] [id number], 165, cm, 03/14/25 14:59:00 EDT, Height/Length Dosing, 1,171, kg, 03/14/25 14:59:00 EDT, Weight Dosing Start Date: 03/15/25 Status: Ordered Quantity: 90.0 Unit: tab(s) Repeat number: 4 Indications: Iron deficiency; gabapentin 400 mg oral capsule (20 sources) Anti-epileptic Agent Start: 11-14-2024 End: 05-13-2025 gabapentin (NEURONTIN) 400 MG capsule Indications: Multiple sclerosis (HCC) Take 1 (one) capsule (400 mg total) by mouth See Admin Instructions (Days supply per fill: 90) 2 cap (800mg) am, 1 cap (400mg) noon, 2 cap (800mg) hs Start: 11/14/24. 450 capsule 1 11/14/2024 05/13/2025 Active Start: 01-07-2024 End: 10-24-2024 gabapentin (NEURONTIN) 400 M G capsule Indications: Multiple sclerosis (HCC) Take 1 (one) capsule (400 mg total) by mouth See Admin Instructions (Days supply per fill: 90) 2 cap (800mg) am, 1 cap (400mg) noon, 2 cap (800mg) hs . 450 capsule 1 03/17/2024 10/24/2024 Discontinued (Reorder (Suppress CancelRx Message to Pharmacy)) Start: 06-18-2023 gabapentin 400 mg Cap See Instructions, 2 cap(s) in the AM, 1 cap at noon, 2 caps in the PM, Refills(s) 0 Start Date: 06/18/23 Status: Ordered Repeat number: 1 Start: 04-04-2019 take 1 capsule by [facility] twice daily gabapentin (NEURONTIN) 400 MG capsule Take 1 capsule by mouth 2 times daily for 30 days. 90 capsule 3 04/04/2019 Active gabapentin (NEUR ONTIN) 400 mg capsule Take 1 capsule (400 mg total) by mouth 3 (three) times a day. Two capules in the morning, One in the afternoon, and two at bedtime. Active lactobacillus acidophilus [id number] unt oral tablet (20 sources) take 1 tablet by mouth once daily Lactobacillus acidophilus 2 billion cell Tab Take 1 tablet by mouth once daily . Active levETIRAcetam 500 mg oral tablet (20 sources) Start: 10-07-2023 End: 10-16-2024 take 1 tablet by mouth twice daily, then take 2 tablets by mouth in the morning, then take 2 tablets by mouth at bedtime levETIRAcetam (KEPPRA) 500 MG tablet Indications: Seizures (HCC) Take 1 (one) tablet (500 mg total) by mouth 2 (two) times a day Takes 2 in the morning and two at bedtime . 120 tablet 5 03/01/2024 10/16/2024 Discontinued (Reorder (Suppress CancelRx Message to Pharmacy)) Start: 09-12-2021 End: 04-19-2025 take 2 tablets by mouth in the morning, then take 2 tablets by mouth at bedtime levETIRAcetam (KEPPRA) 500 mg tablet Take 2 tablets (1,000 mg total) by mouth in the morning and 2 tablets (1,000 mg total) before bedtime. 09/12/2021 Active take 1 tablet by xi twice daily, then take 2 tablets by mouth in the morning, then take 2 tablets by mouth at bedtime levETIRAcetam (KEPPRA) 500 MG tablet Take 1 (one) tablet (500 mg total) by mouth 2 (two) times a day Takes 2 in the morning and two at bedtime . 0 Active take 1 tablet by xi th three times daily, then take 1 tablet by mouth in the morning, then take 2 tablets by mouth at bedtime levETIRAcetam (KEPPRA) 500 MG tablet Take 1 (one) tablet (500 mg total) by mouth 3 (three) times a day Takes 1 in the morning and two at bedtime . 0 Active take 2 tablets by mo [facility] three times daily at bedtime levETIRAcetam (KEPPRA) 500 MG tablet Take 500 mg by mouth 3 (three) times a day Takes 1 in the morning and two at bedtime . 0 Active LORazepam 0.5 mg oral tablet (20 sources) Benzodiazepine Start: 09-15-2021 take 1 tablet by mouth once daily as needed for anxiety LORazepam (ATIVAN) 0.5 mg tablet Indications: Acute anxiety Take 1 tablet (0.5 mg total) by mouth daily as needed for anxiety. 15 tablet 09/15/2021 Active metFORMIN hydrochloride 500 mg oral tablet (20 sources) Biguanide Start: 11-09-2022 take 1 tablet by mouth in the morning, then take 1 tablet by mouth at bedtime metFORMIN (GLUCOPHAGE) 500 mg tablet Take 1 tablet (500 mg total) by mouth in the morning and 1 tablet (500 mg total) before bedtime. 11/09/2022 Active methylPREDNISolone 125 mg injection (2 sources) Corticosteroid Start: 09-08-2024 End: 09-09-2024 125 mg, intravenous, As needed, emergency use for adverse reactions (from treatment/therapy plan)., Starting on Wed09/08/24 at 0956, For 2 doses, Should not be used as initial management of anaphylaxis but may prevent a prolonged or recurrent reaction. May alter blood glucose or insulin requirements. Look-alike/sound- alike medication - verify indication for use. Start: 10-25-2023 End: 10-31-2023 Medrol 4 mg Tab = 1 packet(s ), Oral, As Directed, as directed on package labeling, X 6 day(s), # 21 tab(s), Refills(s) 0, Pharmacy: [facility] #[id number], 165, cm, 10/25/23 13:01:00 EST, Height/Length Dosing, 120, kg, 10/25/23 13:01:00 EST, Weight Dosing Start Date: 10/25/23 Stop Date: 10/31/23 Status: Ordered Misc. Devices (WALKER) MISC (5 sources) Start: 08-26-2017 Misc. Devices (WALKER) MISC Rolling walker 1 each 0 08/26/2017 Active modafinil 100 mg oral tablet (20 sources) Sympathomimet ic-like Agent Start: 04-20-2023 End: 05-04-2025 take 1 tablet by mouth once daily, then take 1 tablet by mouth once daily in the morning modafiniL (PROVIGIL) 100 MG tablet Indications: MS (multiple sclerosis) (HCC) Take 1 (one) tablet (100 mg total) by mouth daily 1 tablet every morning (fatigue and focus) . 30 tablet 5 05/04/2025 Active Multiple Vitamins-Minerals (HAIR/SKIN/NAILS/BIO TIN PO) (5 sources) Multiple Vitamins-Minerals (HAIR/SKIN/NAILS/BI OTIN PO) Take by mouth daily 0 Active multivitamin (THERAGRAN) per tablet (20 sources) take 1 tablet by mouth once daily multivitamin (THERAGRAN) per tablet Take 1 (one) tablet by mouth daily . Active take 1 tablet by mouth once amador y multivitamin (THERAGRAN) per tablet Take 1 (one) tablet by mouth daily . 0 Active take 1 tablet by mouth once amador y multivitamin (THERAGRAN) per tablet Take 1 tablet by mouth daily . 0 Active Multivitamin preparation (13 sources) Start: 06-18-2023 multivitamin R efill(s) 0 Start Date: 06/18/23 Status: Ordered Repeat number: 1 Start: 06-18-2023 multivitamin R efill(s) 0 Start Date: 06/18/23 Status: Ordered 15 ml natalizumab 20 mg/ml injection (20 sources) Integrin Receptor Antagonist Start: 10-04-2024 natalizumab (TYSABRI ) 300 mg/15 mL injection Indications: MS (multiple sclerosis) (HCC) Infuse 15 mL (300 mg total) into a venous catheter every 28 days . 15 mL 13 10/04/2024 Active Start: 08-06-2021 End: 09-27-2024 natalizumab (TYSABRI) 300 mg /15 mL injection Indications: MS (multiple sclerosis) (HCC) Infuse 15 mL (300 mg total) into a venous catheter every 28 days . 15 mL 13 09/14/2023 09/27/2024 Discontinued (Reorder (Suppress CancelRx Message to Pharmacy)) Non-Formulary Medication (13 sources) Start: 06-18-2023 Non-Formulary Medication Tysabri Infusion every 28 days Start Date: 06/18/23 Status: Ordered Repeat number: 1 Start: 06-18-2023 Non-Formulary Medication Tysabri Infusion every 28 days Start Date: 06/18/23 Status: Ordered omeprazole 20 mg delayed release oral capsule (20 sources) Proton Pump Inhibitor Start: 06-18-2023 take 1 capsule by mouth once daily omeprazole 20 mg Cap-DR See Instructions, take 1 capsule by mouth once daily, # 90 cap(s), Refills(s) 1, Pharmacy: [facility] [id number], 165, cm, 10/17/24 10:07:00 EST, Height/Length Dosing, 116.3, kg, 10/17/24 10:07:00 EST, Weight Dosing Start Date: 12/04/24 Status: Ordered Quantity: 90.0 Unit: cap(s) Repeat number: 2 phentermine hydrochloride 37.5 mg oral tablet (4 sources) Sympathomimetic Amine Anorectic take 1 tablet by mouth once daily before breakfast phentermine (ADIPEX-P) 37.5 mg tablet Take 37.5 mg by mouth every morning before breakfast. 0 Active polyethylene glycol 3350 [id number] mg / potassium chloride 1480 mg / sodium bicarbonate 5720 mg / sodium chloride 61051 mg powder for oral solution (1 source) Osmotic Laxative Start: 03-26-2025 take 1 dose by mouth once NuLYTELY [place] oral powder for reconstitution See Instructions, 1 EA, Refill(s) 0, Per physician instructions, prior to colonoscopy., [facility] [id number], 165, cm, 03/26/25 12:33:00 EDT, Height/Length Dosing, 116, kg, 03/26/25 12:33:00 EDT, Weight Dosing Start Date: 03/26/25 Status: Ordered Quantity: 1.0 Unit: EA Repeat number: 1 promethazine hydrochloride 25 mg oral tablet (15 sources) Phenothiazine Start: 04-17-2021 End: 10-19-2022 promethazine 25 mg Tab Oral, 0 Refill(s), Refills(s) 0 Start Date: 04/17/21 Status: Ordered semaglutide 1.7 mg/0.75 mL (1.7 mg dose) subcutaneous solution (Wegovy) (1 source) Start: 04-19-2025 End: 10-16-2025 inject 1.7 mg by subcutaneous injection every week semaglutide 1.7 mg/0.75 mL (1.7 mg dose) subcutaneous solution (Wegovy) 1.7 mg, SubCutaneous, qWeek, X 90 day(s), # 12 EA, Refills(s) 1, Pharmacy: [facility] [id number], 165, cm, 04/19/25 8:55:00 EDT, Height/Length Dosing, 118.2, kg, 04/19/25 8:55:00 EDT, Weight Dosing Start Date: 04/19/25 Stop Date: 10/16/25 Status: Ordered Quantity: 12.0 Unit: EA Repeat number: 2 semaglutide, weight loss, (WEGOVY) 0.25 mg/0.5 mL pen injector (15 sources) semaglutide, weight loss, (WEGOVY) 0.25 mg/0.5 mL pen injector Inject 0.5 mL (0.25 mg total) under the skin every 7 days. Active sertraline 50 mg oral tablet (20 sources) Serotonin Reuptake Inhibitor Start: 05-03-2025 take 1 tablet by mouth once daily in the morning sertraline (ZOLOFT) 50 mg tablet Take 1 tablet (50 mg total) by mouth in the morning. Take with 100 mg tablet daily. 90 tablet 3 05/03/2025 Active Start: 01-16-2025 sertraline 100 mg Tab 150 mg = 1.5 tab(s), Refills(s) 0 Start Date: 01/16/25 Status: Ordered Repeat number: 1 Start: 12-12-2024 take 1 tablet by xi th in the morning sertraline (ZOLOFT) 50 mg tablet Take 1 tablet (50 mg total) by mouth in the morning. Take with 100 mg tablet daily.. 90 tablet 1 12/12/2024 Active Start: 04-08-2023 take 1 tablet by xi th in the morning sertraline (ZOLOFT) 100 mg tablet Indications: Major depressive disorder, recurrent episode, moderate (CMS-HCC) , Posttraumatic stress disorder Take 1 tablet (100 mg total) by mouth in the morning. 90 tablet 3 05/03/2025 Active take 1 tablet by xi th once daily sertraline (ZOLOFT) 25 MG tablet Take 1 (one) tablet (25 mg total) by mouth daily . Active End: 10-24-2024 take 2 tablets by mouth once daily, then take 1 tablet by mouth once daily in the morning sertraline (ZOLOFT) 50 MG tablet Take 2 (two) tablets (100 mg total) by mouth daily 1 tablet every morning( depression, PTSD) . 10/24/2024 Discontinued (Patient Discharge) take 1 tablet by xi th once daily in the morning sertraline (ZOLOFT) 50 MG tablet Take 1.5 mg by mouth daily 1 tablet every morning( depression, PTSD) . 0 Active Specialty Vitamins Products (TAB-A-DIANE WOMENS PO) (5 sources) Specialty Vitami ns Products (TAB-A-DIANE WOMENS PO) Take by mouth daily 0 Active SUMAtriptan 50 mg oral tablet (20 sources) Serotonin-1b and Serotonin-1d Receptor Agonist Start: 3 Imitrex 50 mg Tab See Instructions, Refills(s) 0 Start Date: 06/18/23 Status: Ordered Repeat number: 1 tamsulosin hydrochloride 0.4 mg oral capsule (20 sources) alpha-Adrenergic Julio Start: 2 take 1 capsule by mouth in the morning tamsulosin (FLOMAX) 0.4 mg capsule Take 1 capsule (0.4 mg total) by mouth in the morning. 03/04/2022 Active divalproex sodium 500 mg delayed release oral tablet (5 sources) Mood Stabilizer, Anti-epileptic Agent Start: take 1 tablet by mouth every twelve hours divalproex (DEPAKOTE) [address] tablet Take 1 tablet by mouth every 12 hours 90 tablet 3 04/04/2019 Active Vitamin B12 2500 mcg sublingual tablet (13 sources) Start: Vitamin B12 2500 mcg sublingual tablet Refills(s) 0 Start Date: 06/18/23 Status: Ordered Repeat number: 1 Start: 06-18-2023 Vitamin B12 25 00 mcg sublingual tablet Refills(s) 0 Start Date: 06/18/23 Status: Ordered Vitamin D3 1000 intl units (25 mcg) Tab (13 sources) Start: 06-18-2023 take 1 tablet by mouth once daily Vitamin D3 1000 intl units (25 mcg) Tab 25 mcg = 1 tab(s), Oral, Daily, Refills(s) 0 Start Date: 06/18/23 Status: Ordered Repeat number: 1 Start: 06-18-2023 take 1 tablet by xi once daily Vitamin D3 1000 intl units (25 mcg) Tab 25 mcg = 1 tab(s), Oral, Daily, Refills(s) 0 Start Date: 06/18/23 Status: Ordered Wegovy 0.5 mg/0.5 mL Pen (11 sources) Start: 02-15-2024 Wegovy 0.5 mg/ 0.5 mL Pen Inject 0.5 mL (0.5 mg total) under the skin . 02/15/2024 Active WEGOVY 1 mg/0.5 mL pen injector (3 sources) Start: 01-24-2025 inject 1 mg by subcutaneous injection every week WEGOVY 1 mg/0.5 mL pen injector See Instructions, INJECT 1 MG UNDER THE SKIN ONCE WEEKLY, # 6 mL, Refills(s) 0, Pharmacy: [facility] [id number], 165, cm, 01/16/25 9:50:00 EDT, Height/Length Dosing, 117.5, kg, 01/16/25 9:50:00 EDT, Weight Dosing 01/24/2025 Active Completed/Discontinued Medications Medication Drug Class(es) Dates Sig (Normalized) Sig (Original) acetaminophen 325 mg oral tablet (7 sources) Start: 07-16-2021 End: 07-16-2021 acetaminophen (TYLENOL) tablet 975 mg Start: 07-16-2021 End: 07-16-2021 acetaminophen (TYLENOL) tabl et 975 mg Start: 07-16-2021 End: 07-16-2021 acetaminophen (TYLENOL) tabl et 975 mg Start: 07-16-2021 End: 07-16-2021 acetaminophen (TYLENOL) tabl et 975 mg Start: 05-21-2021 End: 05-21-2021 acetaminophen (TYLENOL) tabl et 975 mg Start: 05-21-2021 End: 05-21-2021 acetaminophen (TYLENOL) tabl et 975 mg Start: 05-21-2021 End: 05-21-2021 acetaminophen (TYLENOL) tabl et 975 mg acetaminophen 325 mg / butalbital 50 mg / caffeine 40 mg oral tablet (11 sources) Barbiturate, Central Nervous System Stimulant, Methylxanthine Start: 02-16-2017 End: 10-28-2021 take 1 tablet by mouth every six hours as needed ckvkbgfwpk-gqbmrtddtyaow-usnfdent (ESGIC) 50-325-40 mg Take 1 tablet by mouth every 6 (six) hours as needed . 0 02/16/2017 10/28/2021 Discontinued gadoteridol (PROHANCE) injection 20 mL (2 sources) Start: 09-10-2020 End: 09-10-2020 gadoteridol (PROHANCE) injec tion 20 mL Start: 12-20-2019 End: 12-20-2019 gadoteridol (PROHANCE) injec tion 20 mL heparin (7 sources) Unfractionated Heparin, Anti-coagulant Start: 02-24-2024 End: 02-24-2024 500 Units, intravenous, As needed, deaccessing, Starting on Carolyn 02/24/24 at 1031, Heplock following NS flush. Look-alike/sound-alike medication - verify indication for use. Start: 01-27-2024 End: 01-27-2024 500 Units, intravenous, As n eeded, deaccessing, Starting on Carolyn 01/27/24 at 1222, Heplock following NS flush. Look-alike/sound-alike medication - verify indication for use. Start: 01-12-2024 End: 01-12-2024 500 Units, intravenous, As n eeded, deaccessing, Starting on Wed01/12/24 at 1238, Heplock following NS flush. Look-alike/sound-alike medication - verify indication for use. Start: 12-28-2023 End: 12-28-2023 500 Units, intravenous, As n eeded, deaccessing, Starting on Wed12/28/23 at 0923, Heplock following NS flush. Look-alike/sound-alike medication - verify indication for use. Start: 11-25-2023 End: 11-25-2023 heparin, porcine (PF) syring e 500 Units Start: 10-28-2023 End: 10-28-2023 heparin, porcine (PF) syring e 500 Units Start: 09-30-2023 End: 09-30-2023 heparin, porcine (PF) syring e 500 Units methylPREDNISolone sod suc(P F) (SOLU-medrol) 250 mg in sodium chloride 0.9 % (NS) 50 mL IVPB (7 sources) Start: 07-16-2021 End: 07-16-2021 methylPREDNISolone sod suc(P F) (SOLU-medrol) 250 mg in sodium chloride 0.9 % (NS) 50 mL IVPB Start: 05-21-2021 End: 05-21-2021 methylPREDNISolone sod suc(P F) (SOLU-medrol) 250 mg in sodium chloride 0.9 % (NS) 50 mL IVPB natalizumab (TYSABRI) 300 mg in sodium chloride 0.9 % (NS) 115 mL IVPB (8 sources) Start: 08-14-2021 End: 08-14-2021 natalizumab (TYSABRI) 300 mg in sodium chloride 0.9 % (NS) 115 mL IVPB Start: 07-16-2021 End: 07-16-2021 natalizumab (TYSABRI) 300 mg in sodium chloride 0.9 % (NS) 115 mL IVPB Start: 05-21-2021 End: 05-21-2021 natalizumab (TYSABRI) 300 mg in sodium chloride 0.9 % (NS) 115 mL IVPB natalizumab (TYSABRI) 300 mg in sodium chloride 0.9 % 100 mL IVPB (20 sources) Start: 05-24-2025 End: 05-24-2025 300 mg, intravenous, at 115 mL/hr, Administer over 60 Minutes, Once, On Carolyn 05/24/25 at 1015, For 1 dose, Monitor for 1 hour after dose. Start: 04-26-2025 End: 04-26-2025 300 mg, intravenous, at 115 mL/hr, Administer over 60 Minutes, Once, On Carolyn 04/26/25 at 0945, For 1 dose, Monitor for 1 hour after dose. Start: 03-29-2025 End: 03-29-2025 300 mg, intravenous, at 115 mL/hr, Administer over 60 Minutes, Once, On Carolyn 03/29/25 at 1015, For 1 dose, Monitor for 1 hour after dose. Start: 03-01-2025 End: 03-01-2025 300 mg, intravenous, at 115 mL/hr, Administer over 60 Minutes, Once, On Carolyn 03/01/25 at 1000, For 1 dose, Monitor for 1 hour after dose. Start: 02-01-2025 End: 02-01-2025 300 mg, intravenous, at 115 mL/hr, Administer over 60 Minutes, Once, On Carolyn 02/01/25 at 1330, For 1 dose, Monitor for 1 hour after dose. Start: 01-04-2025 End: 01-04-2025 300 mg, intravenous, at 115 mL/hr, Administer over 60 Minutes, Once, On Carolyn 01/04/25 at 1100, For 1 dose, Monitor for 1 hour after dose. Start: 12-07-2024 End: 12-07-2024 300 mg, intravenous, at 115 mL/hr, Administer over 60 Minutes, Once, On Carolyn 12/07/24 at 1115, For 1 dose, Monitor for 1 hour after dose. Start: 11-09-2024 End: 11-09-2024 300 mg, intravenous, at 115 mL/hr, Administer over 60 Minutes, Once, On Carolyn 11/09/24 at 1130, For 1 dose, Monitor for 1 hour after dose. Start: 10-12-2024 End: 10-12-2024 300 mg, intravenous, at 115 mL/hr, Administer over 60 Minutes, Once, On Carolyn 10/12/24 at 0930, For 1 dose, Monitor for 1 hour after dose. Start: 09-08-2024 End: 09-08-2024 300 mg, intravenous, at 115 mL/hr, Administer over 60 Minutes, Once, On Wed09/08/24 at 1000, For 1 dose, Monitor for 1 hour after dose. Start: 08-11-2024 End: 08-11-2024 300 mg, intravenous, at 115 mL/hr, Administer over 60 Minutes, Once, On Wed08/11/24 at 1145, For 1 dose, Monitor for 1 hour after dose. Start: 07-14-2024 End: 07-14-2024 300 mg, intravenous, at 115 mL/hr, Administer over 60 Minutes, Once, On Wed07/14/24 at 1145, For 1 dose, Monitor for 1 hour after dose. Start: 06-16-2024 End: 06-16-2024 300 mg, intravenous, at 115 mL/hr, Administer over 60 Minutes, Once, On Wed06/16/24 at 1145, For 1 dose, Monitor for 1 hour after dose. Start: 05-19-2024 End: 05-19-2024 300 mg, intravenous, at 115 mL/hr, Administer over 60 Minutes, Once, On Wed05/19/24 at 1130, For 1 dose, Monitor for 1 hour after dose. Start: 04-21-2024 End: 04-21-2024 300 mg, intravenous, at 115 mL/hr, Administer over 60 Minutes, Once, On Wed04/21/24 at 1145, For 1 dose, Monitor for 1 hour after dose. Start: 03-23-2024 End: 03-23-2024 300 mg, intravenous, at 115 mL/hr, Administer over 60 Minutes, Once, On Wed03/23/24 at 1000, For 1 dose, Monitor for 1 hour after dose. Start: 02-24-2024 End: 02-24-2024 300 mg, intravenous, at 115 mL/hr, Administer over 60 Minutes, Once, On Wed02/24/24 at 1015, For 1 dose, Monitor for 1 hour after dose. Start: 01-27-2024 End: 01-27-2024 300 mg, intravenous, at 115 mL/hr, Administer over 60 Minutes, Once, On Wed01/27/24 at 1115, For 1 dose, Monitor for 1 hour after dose. Start: 12-28-2023 End: 12-28-2023 300 mg, intravenous, at 115 mL/hr, Administer over 60 Minutes, Once, On Wed12/28/23 at 0915, For 1 dose, Monitor for 1 hour after dose. Start: 11-25-2023 End: 11-25-2023 natalizumab (TYSABRI) 300 mg in sodium chloride 0.9 % 100 mL IVPB Start: 10-28-2023 End: 10-28-2023 natalizumab (TYSABRI) 300 mg in sodium chloride 0.9 % 100 mL IVPB Start: 09-30-2023 End: 09-30-2023 natalizumab (TYSABRI) 300 mg in sodium chloride 0.9 % 100 mL IVPB 1000 ml sodium chloride 9 mg/ml injection (20 sources) Start: 05-24-2025 End: 05-24-2025 take 25 mL intravenously every hour as needed 25 mL/hr, intravenous, Continuous PRN, When mainline IV needed., Starting on Wed05/24/25 at 1010, Match IVF to base solution of product being administered to ensure compatibility. Start: 04-26-2025 End: 04-26-2025 take 25 mL intravenously every hour as needed 25 mL/hr, intravenous, Continuous PRN, When mainline IV needed., Starting on Wed04/26/25 at 0944, Match IVF to base solution of product being administered to ensure compatibility. Start: 03-29-2025 End: 03-29-2025 20 mL, intravenous, As neede d, port line care, Starting on Wed03/29/25 at 1218, Flush with NS prior to Heplock. Start: 03-29-2025 End: 03-29-2025 take 25 mL intravenously every hour as needed 25 mL/hr, intravenous, Continuous PRN, When mainline IV needed., Starting on Wed03/29/25 at 1009, Match IVF to base solution of product being administered to ensure compatibility. Start: 03-01-2025 End: 03-01-2025 take 25 mL intravenously every hour as needed 25 mL/hr, intravenous, Continuous PRN, When mainline IV needed., Starting on 03/01/25 at 0949, Match IVF to base solution of product being administered to ensure compatibility. Start: 03-01-2025 End: 03-01-2025 20 mL, intravenous, As neede d, port line care, Starting on Carolyn 03/01/25 at 0948, Flush with NS prior to Heplock. Start: 02-01-2025 End: 02-01-2025 take 25 mL intravenously every hour as needed 25 mL/hr, intravenous, Continuous PRN, When mainline IV needed., Starting on Carolyn 02/01/25 at 1317, Match IVF to base solution of product being administered to ensure compatibility. Start: 01-04-2025 End: 01-04-2025 20 mL, intravenous, As neede d, port line care, Starting on Carolyn 01/04/25 at 1057, Flush with NS prior to Heplock. Start: 12-07-2024 take 25 mL intraveno usly every hour as needed 25 mL/hr, intravenous, Continuous PRN, When mainline IV needed., Starting on Carolyn 12/07/24 at 1103, Match IVF to base solution of product being administered to ensure compatibility. Start: 12-07-2024 20 mL, intrave nous, As needed, port line care, Starting on Carolyn 12/07/24 at 1052, Flush with NS prior to Heplock. Start: 11-09-2024 20 mL, intrave nous, As needed, port line care, Starting on Carolyn 11/09/24 at 1121, Flush with NS prior to Heplock. Start: 11-09-2024 take 25 mL intraveno usly every hour as needed 25 mL/hr, intravenous, Continuous PRN, When mainline IV needed., Starting on Carolyn 11/09/24 at 1120, Match IVF to base solution of product being administered to ensure compatibility. Start: 10-12-2024 20 mL, intrave nous, As needed, port line care, Starting on Carolyn 10/12/24 at 0925, Flush with NS prior to Heplock. Start: 09-08-2024 End: 09-09-2024 500 mL, intravenous, at 3,00 0 mL/hr, Administer over 10 Minutes, As needed, decrease of systolic BP greater than 30% from baseline., Starting on Wed09/08/24 at 0956, For 1 dose, wide open off of the IV pump. Call provider for additional bolus', if needed. Start: 09-08-2024 20 mL, intrave nous, As needed, port line care, Starting on Wed09/08/24 at 0943, Flush with NS prior to Heplock. Start: 08-11-2024 20 mL, intrave nous, As needed, port line care, Starting on Wed08/11/24 at 1239, Flush with NS prior to Heplock. Start: 07-14-2024 20 mL, intrave nous, As needed, port line care, Starting on Wed07/14/24 at 1210, Flush with NS prior to Heplock. Start: 06-16-2024 20 mL, intrave nous, As needed, port line care, Starting on Wed06/16/24 at 1139, Flush with NS prior to Heplock. Start: 05-19-2024 End: 05-19-2024 20 mL, intravenous, As neede d, port line care, Starting on Wed05/19/24 at 1308, Flush with NS prior to Heplock. Start: 05-19-2024 End: 05-19-2024 take 25 mL intravenously every hour as needed 25 mL/hr, intravenous, Continuous PRN, When mainline IV needed., Starting on Wed05/19/24 at 1112, Match IVF to base solution of product being administered to ensure compatibility. Start: 04-21-2024 20 mL, intrave nous, As needed, port line care, Starting on Wed04/21/24 at 1213, Flush with NS prior to Heplock. Start: 04-21-2024 take 25 mL intraveno usly every hour as needed 25 mL/hr, intravenous, Continuous PRN, When mainline IV needed., Starting on Wed04/21/24 at 1125, Match IVF to base solution of product being administered to ensure compatibility. Start: 03-23-2024 End: 03-23-2024 20 mL, intravenous, As neede d, port line care, Starting on Wed03/23/24 at 1201, Flush with NS prior to Heplock. Start: 03-23-2024 End: 03-23-2024 take 25 mL intravenously every hour as needed 25 mL/hr, intravenous, Continuous PRN, When mainline IV needed., Starting on Wed03/23/24 at 0957, Match IVF to base solution of product being administered to ensure compatibility. Start: 02-24-2024 End: 02-24-2024 20 mL, intravenous, As neede d, port line care, Starting on Wed02/24/24 at 1031, Flush with NS prior to Heplock. Start: 02-24-2024 End: 02-24-2024 take 25 mL intravenously every hour as needed 25 mL/hr, intravenous, Continuous PRN, When mainline IV needed., Starting on Wed02/24/24 at 1013, Match IVF to base solution of product being administered to ensure compatibility. Start: 01-27-2024 End: 01-27-2024 20 mL, intravenous, As neede d, port line care, Starting on Wed01/27/24 at 1222, Flush with NS prior to Heplock. Start: 01-27-2024 End: 01-27-2024 take 25 mL intravenously every hour as needed 25 mL/hr, intravenous, Continuous PRN, When mainline IV needed., Starting on Wed01/27/24 at 1103, Match IVF to base solution of product being administered to ensure compatibility. Start: 01-12-2024 End: 01-12-2024 20 mL, intravenous, As neede d, port line care, Starting on Wed01/12/24 at 1238, Flush with NS prior to Heplock. Start: 12-28-2023 End: 12-28-2023 20 mL, intravenous, As neede d, port line care, Starting on Wed12/28/23 at 0923, Flush with NS prior to Heplock. Start: 12-28-2023 End: 12-28-2023 take 25 mL intravenously every hour as needed 25 mL/hr, intravenous, Continuous PRN, When mainline IV needed., Starting on Wed12/28/23 at 0908, Match IVF to base solution of product being administered to ensure compatibility. Start: 11-25-2023 End: 11-25-2023 sodium chloride 0.9 % infusi on Start: 11-25-2023 End: 11-25-2023 sodium chloride 0.9 % flush 20 mL Start: 10-28-2023 End: 10-28-2023 sodium chloride 0.9 % infusi on Start: 10-28-2023 End: 10-28-2023 sodium chloride 0.9 % flush 20 mL Start: 09-30-2023 End: 09-30-2023 sodium chloride 0.9 % flush 20 mL Start: 09-30-2023 End: 09-30-2023 sodium chloride 0.9 % infusi on Start: 08-14-2021 End: 08-14-2021 sodium chloride 0.9% (NS) Start: 07-16-2021 End: 07-16-2021 sodium chloride 0.9% (NS) Start: 05-21-2021 End: 05-21-2021 sodium chloride 0.9% (NS) Problems Active Problems Problem Classification Problem Date Documented Da te Episodic/Chronic Anxiety disorders (20 sources) Anxiety; Translations: [Posttraumatic stress disorder] Onset: 8 06-18-2023 Chronic Blindness and vision defects (1 source) Enlarged blind spot; Translations: [Enlarged blind spot of right eye] Episodic Cardiac dysrhythmias (12 sources) Sinus tachycardia 07-07-2023 Episodic Congestive heart failure; nonhypertensive (9 sources) Diastolic dysfunction 02-07-2024 Chronic Deficiency and other anemia (4 sources) Iron deficiency anemia; Translations: [Iron deficiency anemia, unspecified] Onset: 5 Episodic Diabetes mellitus with complications (12 sources) Neuropathy due to type 2 diabetes mellitus 07-06-2023 Chronic Comment on above: Added per Dr. Hansel bravo response, per outpatient [facility] policy. Diabetes mellitus without complication (3 sources) Type 2 diabetes mellitus 06-18-2023 Chronic Diseases of white blood cells (4 sources) Leukocytosis 02-21-2025 Chronic Disorders of lipid metabolism (5 sources) Dyslipidemia; Translations: [Hyperlipidemia, unspecified] Onset: 7 05-13-2017 Chronic E Codes: Fall (1 source) Other fall on same level, initial encounter; Translations: [OTHER FALL ON SAME LEVEL INITIAL] Onset: 3 Episodic Epilepsy; convulsions (6 sources) Seizure disorder; Translations: [Seizure] Onset: 7 06-22-2017 Chronic Gastrointestinal hemorrhage (4 sources) Hemorrhage of rectum and anus; Translations: [Hemorrhage of anus and rectum] Onset: 5 Episodic Genitourinary symptoms and ill-defined conditions (1 source) Urinary incontinence; Translations: [Urinary incontinence, unspecified type] Chronic Headache; including migraine (11 sources) Complicated migraine; Translations: [Migraine without aura, not refractory ] Onset: 7 03-22-2017 Chronic Headache; including migraine (8 sources) Headache 05-15-2024 Episodic Immunity disorders (9 sources) Drug-induced immunodeficiency 02-15-2024 Chronic Comment on above: added per 02/14/2024 query response. Immunizations and screening for infectious disease (5 sources) Patient encounter status; Translations: [Encounter for screening for other viral diseases] Episodic Inflammation; infection of eye (except that caused by tuberculosis or sexually transmitteddisease) (5 sources) Optic neuritis; Translations: [Unspecified optic neuritis] Onset: 7 07-02-2017 Chronic Influenza (3 sources) Influenza due to Influenza A virus 10-18-2023 Episodic Malaise and fatigue (3 sources) Fatigue; Translations: [Chronic fatigue, unspecified] Chronic Miscellaneous mental health disorders (5 sources) Dissociative convulsions; Translations: [Conversion disorder with seizures or convulsions] Onset: 5 03-24-2017 Chronic Mood disorders (20 sources) Depressive disorder; Translations: [Major depressive disorder, single episode, unspecified] Onset: 5 02-03-2015 Chronic Comment on above: Added per Dr. Hansel bravo response, per ouptatient [facility] policy. Multiple sclerosis (20 sources) Exacerbation of multiple sclerosis; Translations: [Multiple sclerosis] Onset: 7 03-25-2017 Chronic Nutritional deficiencies (7 sources) Vitamin D deficiency; Translations: [Vitamin D deficiency, unspecified] Onset: 5 Chronic Nutritional deficiencies (5 sources) Cobalamin deficiency; Translations: [Deficiency of other specified B group vitamins] 02-03-2015 Episodic Other aftercare (1 source) Other terminal clerk (current) drug therapy; Translations: [OTH HOUSING DIRECTOR CURRENT DRUG THERAPY] Onset: 3 Episodic Other circulatory disease (13 sources) Raynaud's disease 06-18-2023 Chronic Other circulatory disease (3 sources) Elevated blood pressure 06-18-2023 Episodic Other circulatory disease (20 sources) History of cerebrovascular accident without residual deficits 06-18-2023 Episodic Other congenital anomalies (1 source) Disorder of extremity; Translations: [Deficiencies of limbs] Chronic Other connective tissue disease (5 sources) Neurological symptom; Translations: [Unspecified symptoms and signs involving the nervous system] 03-25-2017 Episodic Other eye disorders (1 source) Disorder of visual pathways; Translations: [Unspecified disorder of visual pathways] Chronic Other hematologic conditions (2 sources) Protein electrophoresis abnormal; Translations: [Other specified abnormalities of plasma proteins] Episodic Other hereditary and degenerative nervous system conditions (1 source) Impaired cognition; Translations: [Mild cognitive impairment, so stated] Chronic Other injuries and conditions due to external causes (3 sources) Unspecified injury of left wrist, hand and finger(s), initial encounter; Translations: [UNS INJ LT WRIST HAND FINGERS INIT] Onset: 3 Episodic Other liver diseases (4 sources) Steatosis of liver; Translations: [Fatty (change of) liver, not elsewhere classified] Onset: 5 Chronic Other liver diseases (2 sources) Enzyme level - finding; Translations: [Abnormal levels of other serum enzymes] Onset: 5 Episodic Other liver diseases (2 sources) Alkaline phosphatase raised 03-26-2025 Episodic Other nervous system disorders (5 sources) Disorder of brain; Translations: [Encephalopathy, unspecified] 04-05-2019 Chronic Other nervous system disorders (13 sources) Neuropathy 06-18-2023 Chronic Other nervous system disorders (5 sources) Paresthesia of lower extremity; Translations: [Anesthesia of skin] 05-13-2017 Episodic Other nervous system disorders (1 source) Skin sensation disturbance; Translations: [Sensory abnormality of lumbar dermatome distribution] Episodic Other nervous system disorders (1 source) Knee reflex reduced; Translations: [Decreased patellar reflex] Episodic Other nervous system disorders (1 source) Abnormal gait; Translations: [Unspecified abnormalities of gait and mobility] 10-12-2023 Episodic Other nutritional; endocrine; and metabolic disorders (1 source) Morbid (severe) obesity due to excess calories; Translations: [MORBID SEVERE OBES D/T EXCESS WICHO] Onset: 3 Chronic Other nutritional; endocrine; and metabolic disorders (1 source) Body mass index (BMI) 45.0-49.9, adult; Translations: [BODY MASS INDEX BMI 45.0-49.9 ADULT] Onset: 3 Chronic Other nutritional; endocrine; and metabolic disorders (1 source) Body mass index (BMI) 40.0-44.9, adult; Translations: [BODY MASS INDEX BMI 40.0-44.9 ADULT] Onset: 2 Chronic Other nutritional; endocrine; and metabolic disorders (19 sources) Body mass index 40+ - severely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 Cap) See instructions 2 cap(s) in the AM, 1 cap at noon, 2 caps in the PM Unchanged levetiracetam (levetiracetam 500 mg Tab) 2 Tablets By Mouth 2 times a day Unchanged lorazepam (Ativan 0.5 mg Tab) 1 Tablets By Mouth Every day as needed for as needed for anxiety Unchanged metformin (metformin 500 mg Tab) See instructions take 1 tablet by mouth twice a day [place]changed [facility] [place] (BACLOFEN 10 MG TABLET) take 1 TO 2 tablet by mouth three times a day Unchanged modafinil (modafinil 100 mg Tab) 1 Tablets By Mouth Once a day (in the morning) Unchanged multivitamin Unchanged Non-Formulary Medication Tysabri Infusion every 28 days Unchanged omeprazole (omeprazole 20 mg Cap-DR) See instructions take 1 capsule by mouth once daily Unchanged sertraline (sertraline 100 mg Tab) 1.5 Tablets Unchanged sumatriptan (Imitrex 50 mg Tab) See instructions Pharmacy Information [facility] [id number]: [address], [place] [id number] [phone] Allergies codeine (Hallucinations) Problems Ongoing - Any problem that you are currently receiving treatment for. Anxiety BMI 40.0-44.9, adult Diastolic dysfunction Elevated alkaline phosphatase level Excessive dietary caloric intake Family history of breast cancer Fatty liver Headache History of ce (more content not included)... Normal [facility] Family Medicine Office/Clini c Noteon 04-19-2025 Family Medicine Office/Clinic Note Family Medicine Office/Clinic Note HPI Staff Odessa is a 44 year old female presenting with 3 month f/u *Former [facility] patient* Weight management Wegovy Sleeping well:Yes, 6-8 hours Chest pain:No Tremors:No Headaches:No Heart fluttering:No Blurred Vision:No Starting Weight: 279.18 lbs. Weight last visit: 259 lbs Weight this visit: 260 lbs. Refills needed, wants to know if she can get an increase for this, she does not feel like this is working for her any more History of Present Illness pt presents today for diabetes follow up. Review of Systems PHQ Score Initial Depression Screen Score: 2 SCORE Physical Exam Vitals & Measurements T: 36.2 ???C(Temporal Artery) HR: 88(Peripheral) RR: 20 BP: 130/84 SpO2: 100% HT: 65 in HT: 165.0 cm WT: 118.2 kg WT: 260.586 lb BMI: 43.42 General: alert, no acute distress ENMT: oral mucosa moist, no pharyngeal erythema or exudate Cardiovascular: regular rate and rhythm, normal peripheral perfusion Respiratory: Lungs CTA, respirations non labored Extremities: no deformity, no trauma Neurological: oriented x 4, LOC appropriate for age, CN II-XII intact, motor strength equal & normal bilaterally, speech normal Assessment/Plan 1. Type 2 diabetes mellitus with diabetic neuropathy (E11.40: Type 2 diabetes mellitus with diabetic neuropathy, unspecified) pt is due for HGBA1C today. will increase wegovy dose. all questions answered. RTC 3 months Ordered: HgbA1c 2. MS (multiple sclerosis) (G35: Multiple sclerosis) continue levetracetam 3. BMI 40.0-44.9, adult, (Z68.41: Body mass index [BMI] 40.0-44.9, adult)Body mass index [BMI] 40.0-44.9, adult bmi education. discussed making healthy food choices. increased wegovy to 1.7mg. 4. Class 3 severe obesity due to excess calories with body mass index (BMI) of 40.0 to 44.9 in adult (E66.813: Obesity, class 3) see above Morbid (severe) obesity due to excess calories (E66.01: Morbid (severe) obesity due to excess calories) Orders: semaglutide, See Instructions, INJECT 1 MG UNDER THE SKIN ONCE WEEKLY, # 6 mL, Refills(s) 0, Pharmacy: [facility] [id number], 165, cm, 01/16/25 9:50:00 EDT, Height/Length Dosing, 117.5, kg, 01/16/25 9:50:00 EDT, Weight Dosing semaglutide, 1.7 mg, SubCutaneous, qWeek, X 90 day(s), # 12 EA, Refills(s) 1, Pharmacy: [facility] [id number], 165, cm, 04/19/25 8:55:00 EDT, Height/Length Dosing, 118.2, kg, 04/19/25 8:55:00 EDT, Weight Dosing Follow-up No qualifying data available Problem List/Past Medical History Ongoing Anxiety BMI 40.0-44.9, adult Diastolic dysfunction Elevated alkaline phosphatase level Excessive dietary caloric intake Family history of breast cancer Fatty liver Headache History of cerebrovascular accident without residual deficits STEVE (iron deficiency anemia) Immunodeficiency due to drugs Leukocytosis (leucocytosis) Major depressive disorder, recurrent, in full remission Morbid obesity with BMI of 40.0-44.9, adult MS (multiple sclerosis) Neuropathy Nonsmoker Obesity due to excess calories Obesity, morbid, BMI 40.0-49.9 PTSD (post-traumatic stress disorder) Raynauds disease Rectal bleeding Sinus tachycardia Syncope Type 2 diabetes mellitus with diabetic neuropathy Historical No qualifying data Procedure/Surgical History Colonoscopy (04/02/2025), Esophagogastroduodenoscop y (04/02/2025), Port (10/15/2022), Total hysterectomy (10/17/2016), Partial hysterectomy (10/25/2015), Tonsillectomy (12/19/2012), Cholecystectomy (07/06/2008), delivery (05/23/2008), Tubal ligation (05/23/2008), delivery (07/02/2003), Carpal tunnel. Medications amitriptyline 150 mg Tab, See Instructions aripiprazole 5 mg Tab, 5 mg= 1 tab(s), Oral, Daily Ativan 0.5 mg Tab, 0.5 mg= 1 tab(s), Oral, Daily, PRN atorvastatin 40 mg Tab, See Instructions, 1 refills BACLOFEN 10 MG TABLET biotin 5000 mcg oral capsule, See Instructions Colace ferrous sulfate 325 mg oral enteric coated tablet, 325 mg= 1 tab(s), Oral, Daily, 3 refills gabapentin 400 mg Cap, See Instructions Imitrex 50 mg Tab, See Instructions levetiracetam 500 mg Tab, 1000 mg= 2 tab(s), Oral, BID metformin 500 mg Tab, See Instructions, 1 refills modafinil 100 mg Tab, 100 mg= 1 tab(s), Oral, qAM multivitamin Non-Formulary Medication omeprazole 20 mg Cap-DR, See Instructions, 1 refills semaglutide 1.7 mg/0.75 mL (1.7 mg dose) subcutaneous solution (Wegovy), 1.7 mg, SubCutaneous, qWeek, 1 refills sertraline 100 mg Tab, 150 mg= 1.5 tab(s) Vitamin B12 2500 mcg sublingual tablet Vitamin D3 1000 intl units (25 mcg) Tab, 25 mcg= 1 tab(s), Oral, Daily Allergies codeine (Hallucinations) Social History Alcohol Never., 02/20/2025 Employment/School - Not employed or in school, 06/18/2023 Home/Environment Lives with Significant other. Living situation: Home/Independent. Home equipment: Walker/Cane, BSC. Alcohol abuse in household: No. Substance abuse in household (more content not included)... Normal [facility] Comment on above: Result Comment: Elec tronically Signed By: Avelina Pearce\.br\Date and Time Signed: 04/19/25 09:04 EDT QftW2rit 04-19-2025 HbA1c (Bld) [Mass fraction] 5.7 % Normal <=5.9 [facility] Comment on above: Performed By: #### [id number] #### [facility] [address] [place] [address] Pre-Visit Planningon 025 Pre-Visit Planning Pre-Visit Planning From: Amparo Lofton To: Avelina Pearce; Sent: 04/18/2025 13:14:06 EDT Subject: Pre-Visit Planning Due Date/Time: 04/18/2025 13:14:00 EDT Caller Name: ODESSA IRELAND; Caller Number: , M [facility] Avelina. During a pre-visit planning chart review, I noted the following medication documented in the medical record: levetiracetam 1,000 mg PO BID. Based on your medical judgement, can you please indicate what conditions indicate the necessity of the medication/treatment? I can update the problem list with your specified response if you would like. -Additional comments: -Will discuss at Office Visit In responding to this request, please exercise your independent professional judgement. The fact that a question is asked does not imply that any particular answer is desired or expected. If you have any questions, please feel free to contact me at extension [phone]. Thank you! Amparo Lofton LPN Clinical Environmental Engineering Manager [place] [address] Extension: [phone] [email or web address] From: Avelina Pearce To: Amparo Lofton; Sent: 04/19/2025 08:54:41 EDT Subject: RE: Pre-Visit Planning Caller Name: ODESSA IRELAND; Caller Number: Sheila , M She takes this medication for Muscular Sclerosis, helps with muscle spasticity From: Amparo Lofton To: Avelina Pearce; Sent: 04/19/2025 09:11:00 EDT Subject: RE: Pre-Visit Planning Due Date/Time: 04/19/2025 09:10:00 EDT Caller Name: ODESSA IRELAND; Caller Number: Sheila , M Thank you, Avelina. :) From: Avelina Pearce To: Amparo Lofton; Sent: 04/19/2025 10:30:50 EDT Subject: RE: Pre-Visit Planning Caller Name: ODESSA IRELAND; Caller Number: Sheila , M Welcome:) Normal [facility] Reminderson 04-16-2025 Reminders Reminders From: Sharri Flores To: [facility] - Reminders/Recalls; Sent: 04/16/2025 16:11:12 EDT Show up: 03/03/2035 16:10:00 EDT Subject: Ambulatory Reminder- colonoscopy 10 years Due Date/Time: 04/02/2035 16:10:00 EDT Reminder/Recall Colonoscopy 04/02/25 Dr Hatfield 10 year recall Normal [facility] Surgical Pathology Reporton 04-06-2025 Surgical Pathology Report [address] [place] [address]- Surgical Pathology Report Collected Date/Time: 04/02/2025 09:35 EDT Pathologist: Johanny Carpio MD Received Date/Time: 04/02/2025 11:11 EDT Liu SOUZA, Lili Hatfield MD, Lili Benítez Surgical Pathology Report - 04/06/2025 14:51 EDT - Auth (Verified) Final Diagnosis A: STOMACH, BIOPSY: - Antral-type mucosa with mild to moderate reactive gastropathy - No intestinal metaplasia identified. - No H. pylori microorganisms identified with immunostain. B: DUODENUM, BIOPSY: - Duodenal mucosa with no significant pathologic changes C: ESOPHAGUS, BIOPSY: - Esophageal squamocolumnar mucosa with mild chronic active inflammation and reactive changes - No intestinal metaplasia identified. (Electronic Signature) Myrlande. Balaji MD 04/06/2025 14:51 Clinical Information STEVE, rectal bleeding, elevated alkaline phosphate level Pre-Op Diagnosis: STEVE, rectal bleeding, elevated alkaline phosphate level Procedure: EGD Post-Op Diagnosis: 1. 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 Gastropathy 4. Probable bile reflux Specimen(s) Received A.Gastric biopsy B.Duodenal biopsy C.Esophageal biopsy Gross Description A: Received in formalin labeled with patient name, number, and gastric biopsy are three fragments of siegel/pink tissue measuring from 0.1 cm up to 0.2 cm. Specimen is entirely submitted in one cassette. B: Received in formalin labeled with patient name, number, and duodenal biopsy are four fragments of siegel/pink tissue ranging from 0.1 cm up to 0.3 cm in greatest dimension. The specimen is entirely submitted in one cassette. C: Received in formalin labeled with patient name, number, and esophageal biopsy are two fragments of siegel/pink tissue measuring 0.2 and 0.4 cm. The specimen is entirely submitted in one cassette. (DC) DC:MCA Microscopic Description The use of one or more reagents in the above tests is regulated as an analyte specific reagent (ASR). The test or tests are ordered following initial H&E microscopic examination. The performance characteristics were determined by the Laboratory of [facility] Surgical Pathology. They have not been cleared or approved by the US Food and Drug Administration. The FDA has determined that such clearance or approval is not necessary. These tests are used for clinical Surgical Pathology Report Collected Date/Time: 04/02/2025 09:35 EDT Pathologist: Johanny Carpio MD Received Date/Time: 04/02/2025 11:11 EDT Lili Hatfield MD, MD, Mohamad A. Microscopic Description purposes. They should not be regarded as investigational or for research. Appropriate positive and negative controls are performed and are acceptable. This report was transcribed using voice recognition technology and might contain unintended computerized manager music errors. Microscopic examination performed unless gross only specified. Quality was accessed and acceptable. Normal [facility] Comment on above: Performed By: #### [id number] #### [facility] [address] [place] [address] Main OR Intraoperative Recor don 04-03-2025 Main OR Intraoperative Record Main OR Intraoperative Record IntraOp Document Type FT Summary Primary Physician: Lili Hatfield MD Finalized Date/Time: 04/03/25 13:18:48 Pt. Name: ODESSA IRELANDO.B./Sex: 1980 Female Med Rec #: [id number] Physician: Lili Hatfield MD Financial #: [id number] Pt. Type: O Room/Bed: / Admit/Disch: 04/02/25 07:52:55 - 04/02/25 23:59:59 Institution: Case Times FT Entry 1 Patient Times In Room 04/02/25 09:29:00 Out Room 04/02/25 09:54:00 Procedure Times Start 04/02/25 09:33:00 Stop 04/02/25 09:51:00 Anesthesia Times Start 04/02/25 09:29:00 Stop 04/02/25 09:54:00 Time at [facility] 04/02/25 09:45:00 Last Modified By: Gisela DIAZ, Zohreh Mckeon 04/02/25 09:55:03 General Comments: 0937 EGD completed. /MD,RN 0940 Colonoscopy started. /MD,RN Case Attendance FT Entry 1 Entry 2 Entry 3 Case Attendee Pj HERNÁNDEZ, Williams Higgins RN, Casimiro Walker Role Performed CLINICAL EDUCATION ACADEMIC COORDINATOR Supervisor Customer Records Division - Primary Scrub - Primary Time In 04/02/25 09:29:00 04/02/25 09:29:00 04/02/25 09:29:00 Time Out 04/02/25 09:54:00 04/02/25 09:54:00 04/02/25 09:54:00 Procedure EGD AND COLONOSCOPY(.) EGD AND COLONOSCOPY(.) EGD AND COLONOSCOPY(.) Comments Dr. Lopez supervising case Last Modified By: Gisela RN, Zohreh Higgins RN, Zohreh Higgins RN, Zohreh 04/02/25 09:55:03 F 04/02/25 09:55:03 F 04/02/25 09:55:03 Entry 4 Entry 5 Case Attendee Martha VEGA, Awilda Hatfield MD, Lili Rodriguez Role Performed Staff - Other Surgeon - Primary Time In 04/02/25 09:29:00 04/02/25 09:29:00 Time Out 04/02/25 09:54:00 04/02/25 09:54:00 Procedure EGD AND COLONOSCOPY(.) EGD AND COLONOSCOPY(.) Comments help in room Last Modified By: Gisela RN, Zohreh Higgins RN, Zohreh 04/02/25 09:55:03 F 04/02/25 09:55:03 Perioperative Protocols FT Pre-Care Text: Implements protective measures prior to operative or invasive procedure, confirms identity before the operative or invasive procedure, verifies operative procedure, surgical site, and laterality Entry 1 Procedure(s) EGD AND COLONOSCOPY(.) Patient Identity Birthday, ID Band Verified (select at Check, Patient least 2): Participation Consents / H and P Anesthesia Consent, Operative Site N/A Verified H&P, Surgery/Procedure Marking Verified Consent Surgical Site No Laterality Verified n/a Verified Procedure Verified Yes Correct Patient Yes Position Verified Availability Equipment, Medication Prep Dry n/a Verified (If Applicable) PreOp Antibiotic No Time Out Gisela DIAZ, Pj Pierre CRNA, Kyle A., Sparks, Micala E, Martha VEGA, Liu Satrk MD, Lili Suarez Time Out Complete 04/02/25 09:32:00 Outcomes Met? Yes Last Modified By: Zohreh Higgins RN 04/02/25 09:32:51 Post-Care Text: The patient is free from signs and symptoms of injury caused by extraneous objects Allergy Information FT Pre-Care Text: Verifies allergies Entry 1 Allergies Reviewed? Yes Allergies Reviewed Self/Patient With Outcomes Met? Yes Last Modified By: Zohreh Higgins RN 04/02/25 09:33:28 Post-Care Text: The patient received appropriate medication(s) safely administered during the perioperative period Surgical Procedures FT Entry 1 Procedure Description Procedure EGD AND COLONOSCOPY Modifiers . Surgeon Description EGD with gastric biopsy, duodenal biopsy, esophageal biopsy. Colonoscopy Primary Procedure Yes Primary Surgeon Lili Hatfield MD Start 04/02/25 09:33:00 Stop 04/02/25 09:51:00 Anesthesia Type General Surgical Service Gastroenterology Wound Class 2 - Clean-Contaminated Last Modified By: Zohreh Higgins RN 04/02/25 09:52:02 General Case Data FT Pre-Care Text: Classifies surgical wound, implements aseptic technique, initiates traffic control Entry 1 Case Information OR ENDO 1 FT Case Level Level 2 Wound Class 2 - Clean-Contaminated Specialty Gastroenterology ASA Class 3 Preop Diagnosis STEVE, rectal bleeding, Postop Same As Preop No elevated alkaline phosphate level Postop Diagnosis EGD- gastropathy, Outcomes Met? Yes hiatal hernia, probable Lopez's esophagus, probable bile reflux. Colonoscopy- anal skin tags, internal hemorrhoids Last Modified By: Zohreh Higgins RN 04/02/25 09:51:57 Post-Care Text: The patient is free from signs and symptoms of infection Skin Assessment (Pre Procedure) FT Pre-Care Text: Implements protective measures to prevent skin/ tissue injury due to thermal or mechanical sources Evaluates for signs and symptoms of physical injury to skin and tissue Entry 1 Skin Integrity Intact, [place], Warm, & Skin Abnormality No Dry Outcomes Met? Yes Last Modified By: Zohreh Higgins RN 04/02/25 09:34:22 Post-Care Text: The patient is free from signs and symptoms of injury caused by extraneous objects Patient Positioning FT Pre-Care Text: Id (more content not included)... Normal [facility] Discharge Instructionson Discharge Instructions Discharge Instructions ODESSA IRELAND :1980 Visit Date:04/02/2025 Inpatient Discharge Instructions Your Care Team Admitting Physician - Lili Hatfield MD Referring Physician - Lili Hatfield MD Reason for Your Visit STEVE, RECTAL BLEEDING, ELEVATED ALKALINE PHOSPHATE LEVEL Your Diagnosis Gastropathy Hemorrhoids, internal Hernia, hiatal Tests Performed Pathology Tissue Exam -- Results Pending -- Please visit your patient portal for your results or contact your primary care physician. This Is Your Medications List Misc Prescription (BACLOFEN 10 MG TABLET) Non-Formulary Medication amitriptyline (amitriptyline 150 mg Tab) aripiprazole (aripiprazole 5 mg Tab) atorvastatin (atorvastatin 40 mg Tab) biotin (biotin 5000 mcg oral capsule) cholecalciferol (Vitamin D3 1000 intl units (25 mcg) Tab) cyanocobalamin (Vitamin B12 2500 mcg sublingual tablet) docusate (Colace) ferrous sulfate (ferrous sulfate 325 mg oral enteric coated tablet) gabapentin (gabapentin 400 mg Cap) levetiracetam (levetiracetam 500 mg Tab) lorazepam (Ativan 0.5 mg Tab) metformin (metformin 500 mg Tab) modafinil (modafinil 100 mg Tab) multivitamin omeprazole (omeprazole 20 mg Cap-DR) semaglutide (Wegovy (1 mg dose) subcutaneous solution) sertraline (sertraline 100 mg Tab) sumatriptan (Imitrex 50 mg Tab) Procedure History Port (10/15/2022), Total hysterectomy (10/17/2016), Partial hysterectomy (10/25/2015), Tonsillectomy (12/19/2012), Cholecystectomy (07/06/2008), delivery (05/23/2008), Tubal ligation (05/23/2008), delivery (07/02/2003), Carpal tunnel. Discharge Vitals Temperature (Temporal Artery) 36.7 ???C Heart Rate (Monitored) 88 Respiratory Rate 22 Blood Pressure 114/66 Height 165 cm Weight 116 kg BMI 42.61 What to do next Instructions From Your Doctor No qualifying data available. Previously Scheduled Follow-Up Appointments Wednesday 9:20 AM EDT With: Hansel SOUZA, Rex Guerin Where: [address] [address] 9:30 AM EDT With: Where: [place] [id number] 1:20 PM EST With: ANTONETTE LOERA CNP Where: [facility] New Follow Up Appointments after Discharge Follow Up with Liu SOUZA, CANDICE Watkins, [facility] When: Comments: call office regarding follow up Where: [facility] [address], [address] [place] [phone] Medications What How Much When Why Instructions Next Dose Unchanged amitriptyline (amitriptyline 150 mg Tab) See instructions TAKE 1 TABLET BY MOUTH EVERY NIGHT AT BEDTIME Unchanged aripiprazole (aripiprazole 5 mg Tab) 1 Tablets By Mouth Every day Unchanged atorvastatin (atorvastatin 40 mg Tab) See instructions TAKE 1 TABLET BY MOUTH DAILY Unchanged biotin (biotin 5000 mcg oral capsule) See instructions 2 caps every morning Unchanged cholecalciferol (Vitamin D3 1000 intl units (25 mcg) Tab) 1 Tablets By Mouth Every day Unchanged cyanocobalamin (Vitamin B12 2500 mcg sublingual tablet) Unchanged docusate (Colace) Unchanged ferrous sulfate (ferrous sulfate 325 mg oral enteric coated tablet) 1 Tablets By Mouth Every day Dietary iron deficiency Unchanged gabapentin (gabapentin 400 mg Cap) See instructions 2 cap(s) in the AM, 1 cap at noon, 2 caps in the PM Unchanged levetiracetam (levetiracetam 500 mg Tab) 2 Tablets By Mouth 2 times a day Unchanged lorazepam (Ativan 0.5 mg Tab) 1 Tablets By Mouth Every day as needed for as needed for anxiety Unchanged metformin (metformin 500 mg Tab) See instructions take 1 tablet by mouth twice a day Unchanged Misc Prescription (BACLOFEN 10 MG TABLET) take 1 TO 2 tablet by mouth three times a day Unchanged modafinil (modafinil 100 mg Tab) 1 Tablets By Mouth Once a day (in the morning) Unchanged multivitamin Unchanged Non-Formulary Medication Tysabri Infusion every 28 days Unchanged omeprazole (omeprazole 20 mg Cap-DR) See instructions take 1 capsule by mouth once daily Unchanged semaglutide (Wegovy (1 mg dose) subcutaneous solution) See instructions INJECT 1 MG UNDER THE SKIN ONCE WEEKLY Unchanged sertraline (sertraline 100 mg Tab) 1.5 Tablets Unchanged sumatriptan (Imitrex 50 mg Tab) See instructions Test Results No qualifying data available. Allergies codeine (Hallucinations) Problems Ongoing - Any problem that you are currently receiving treatment for. Anxiety BMI 40.0-44.9, adult Diastolic dysfunction Elevated alkaline phosphatase level Excessive dietary caloric intake Family history of breast cancer Fatty liver Headache History of cerebrovascular accident without residual deficits Hx of stroke without residual deficits STEVE (iron deficiency anemia) Immunodeficiency due to drugs (more content not included)... Normal [facility] Comment on above: Result Comment: Elec tronically Signed By: Rogelio DIAZ, Anna\.br\Date and Time Signed: 04/02/25 10:09 EDT H&P Updateon 04-02-2025 H&P Update H&P Update Patient: ODESSA IRELAND Age: 44 years Sex: Female : 1980 Associated Diagnoses: None Author: Liu SOUZA, Lili Suarez Preoperative Information Chief compliant/Indication for procedure: Anemia Chief Complaint as above Review of Systems All systems reviewed, negative except as mentioned above Health Status Allergies: Nonallergic Reactions (Selected) Mild Codeine- Hallucinations. Current medications: (Selected) Inpatient Medications Ordered Lactated Ringers IV Ivonne 1000 mL 1,000 mL: 1,000 mL, IV, 100 mL/hr, Routine, Start date 04/02/25 8:13:00 EDT, 10 hour(s), Total volume (mL): 1,000, 116 kg, 2.31, m2 Sodium Chloride 0.9% IV Ivonne 1000 mL 1,000 mL: 1,000 mL, IV, 20 mL/hr, Routine, Start date 04/02/25 6:36:00 EDT, 50 hour(s), Total volume (mL): 1,000, 116 kg, 2.31, m2 Prescriptions Prescribed Wegovy (1 mg dose) subcutaneous solution: See Instructions, INJECT 1 MG UNDER THE SKIN ONCE WEEKLY, # 6 mL, Refills(s) 0, Pharmacy: [facility] [id number], 165, cm, 01/16/25 9:50:00 EDT, Height/Length Dosing, 117.5, kg, 01/16/25 9:50:00 EDT, Weight Dosing amitriptyline 150 mg Tab: See Instructions, TAKE 1 TABLET BY MOUTH EVERY NIGHT AT BEDTIME, # 90 tab(s), Refills(s) 0, Pharmacy: [facility] [id number], 165, cm, 02/21/25 9:06:00 EDT, Height/Length Dosing, 117.8, kg, 02/21/25 9:06:00 EDT, Weight Dosing atorvastatin 40 mg Tab: See Instructions, TAKE 1 TABLET BY MOUTH DAILY, # 90 tab(s), Refills(s) 1, Pharmacy: [facility] [id number], 165, cm, 10/17/24 10:07:00 EST, Height/Length Dosing, 116.3, kg, 10/17/24 10:07:00 EST, Weight Dosing ferrous sulfate 325 mg oral enteric coated tablet: 325 mg = 1 tab(s), Oral, Daily, # 90 tab(s), Refills(s) 3, Pharmacy: [facility] [id number], 165, cm, 03/14/25 14:59:00 EDT, Height/Length Dosing, 1,171, kg, 03/14/25 14:59:00 EDT, Weight Dosing metformin 500 mg Tab: See Instructions, take 1 tablet by mouth twice a day, # 180 tab(s), Refills(s) 1, Pharmacy: [facility] [id number], 165, cm, 10/17/24 10:07:00 EST, Height/Length Dosing, 116.3, kg, 10/17/24 10:07:00 EST, Weight Dosing omeprazole 20 mg Cap-DR: See Instructions, take 1 capsule by mouth once daily, # 90 cap(s), Refills(s) 1, Pharmacy: [facility] [id number], 165, cm, 10/17/24 10:07:00 EST, Height/Length Dosing, 116.3, kg, 10/17/24 10:07:00 EST, Weight Dosing Documented Medications Documented Ativan 0.5 mg Tab: 0.5 mg = 1 tab(s), Oral, Daily, PRN as needed for anxiety, Refills(s) 0 BACLOFEN 10 MG TABLET: BACLOFEN 10 MG TABLET, take 1 TO 2 tablet by mouth three times a day Colace: Refills(s) 0 Imitrex 50 mg Tab: See Instructions, Refills(s) 0 Non-Formulary Medication: Tysabri Infusion every 28 days Vitamin B12 2500 mcg sublingual tablet: Refills(s) 0 Vitamin D3 1000 intl units (25 mcg) Tab: 25 mcg = 1 tab(s), Oral, Daily, Refills(s) 0 aripiprazole 5 mg Tab: 5 mg = 1 tab(s), Oral, Daily, # 30 tab(s), Refills(s) 0 biotin 5000 mcg oral capsule: See Instructions, 2 caps every morning, Refills(s) 0 gabapentin 400 mg Cap: See Instructions, 2 cap(s) in the AM, 1 cap at noon, 2 caps in the PM, Refills(s) 0 levetiracetam 500 mg Tab: 1,000 mg = 2 tab(s), Oral, BID, # 120 tab(s), Refills(s) 0 modafinil 100 mg Tab: 100 mg = 1 tab(s), Oral, qAM, # 30 tab(s), Refills(s) 0 multivitamin: Refill(s) 0 sertraline 100 mg Tab: 150 mg = 1.5 tab(s), Refills(s) 0 Problem list: All Problems Anxiety / SNOMED CT 43545997 / Confirmed BMI 40.0-44.9, adult / SNOMED CT 7453739782 / Confirmed Diastolic dysfunction / SNOMED CT 9028990 / Confirmed Elevated alkaline phosphatase level / SNOMED CT 3794511171 / Confirmed Excessive dietary caloric intake / SNOMED CT 378753753 / Confirmed Family history of breast cancer / SNOMED CT 4080246056 / Confirmed Fatty liver / SNOMED CT 5307568751 / Confirmed Headache / SNOMED CT 99248015 / Confirmed History of cerebrovascular accident without residual deficits / SNOMED CT 1781930739 / Confirmed Hx of stroke without residual deficits / SNOMED CT 9424063077 / Confirmed STEVE (iron deficiency anemia) / SNOMED CT 567309110 / Confirmed Immunodeficiency due to drugs / SNOMED CT 640180092 / Confirmed added per 02/14/2024 query response. Leukocytosis (leucocytosis) / SNOMED CT 397766352 / Confirmed Major depressive disorder, recurrent, in full remission / SNOMED CT 5882401522 / Confirmed Added per Dr. Hamm query response, per ouptatient CDI policy. Morbid obesity with BMI of 40.0-44.9, adult / IMO 26366727 / Possible Problem added automatically by Discern Expert based on clinical documentation MS (multiple sclerosis) / SNOMED CT 57376741 / Confirmed Neuropathy / SNOMED CT 9332658426 / Confirmed Nonsmoker / SNOMED CT 66339537 / Confirmed Obesity due to excess calories / SNOMED CT 9106563189 / Confirmed Obesity, morbid, BMI 40.0-49.9 / SNOMED CT 4139790719 / Confirmed PTSD (post-traumatic stress disorder) / SNOMED CT 88052680 / Confirmed R (more content not included)... Normal [facility] Comment on above: Result Comment: Elec tronically Signed By: Lili Hatfield MD\.br\Date and Time Signed: 04/02/25 09:30 EDT Main OR PACU I Recordon 03-07 Main OR PACU I Record Main OR PACU I Record PACU Phase I Document Type FT Summary Primary Physician: Lili Hatfield MD Finalized Date/Time: 04/02/25 10:49:30 Pt. Name: ODESSA IRELANDO.B./Sex: 1980 Female Med Rec #: [id number] Physician: Lili Hatfield MD Financial #: [id number] Pt. Type: O Room/Bed: / Admit/Disch: 04/02/25 07:52:55 - Institution: Case Times PACU I FT Pre-Care Text: Identifies barriers to communication and implements measures to provide psychological support Develops individualized plan of care, and ensures continuity of care Maintains patient's dignity and privacy, and maintains patient confidentiality Identifies and reports philosophical, cultural, and spiritual beliefs and values Identifies individual values and wishes concerning care Implements aseptic technique, and administers prescribed antibiotic therapy and immunizing agents as ordered Evaluates postoperative tissue perfusion Implements thermoregulation measures, and monitors body temperature Evaluates postoperative respiratory status Evaluates postoperative cardiac status Evaluates postoperative neurological status Assesses pain control, collaborated in initiating patient-controlled analgesia and implements alternative methods of pain control Verifies allergies, administers prescribed medications and solutions, evaluates response to medications Entry 1 In PACU I 04/02/25 09:55:00 Discharge from PACU 04/02/25 10:25:00 I Outcomes Met? Yes Last Modified By: Anna Mercado RN 04/02/25 10:49:05 Post-Care Text: The patient demonstrates knowledge of the expected response to the operative or invasive procedure The patient's care is consistent with the individualized perioperative plan of care The patient's right to privacy is maintained The patient's value system, lifestyle, ethnicity, and culture are considered, respected, and incorporated into the perioperative plan of care The patient participates in decisions affecting his or her perioperative plan of care The patient is free from signs and symptoms of infection The patient has wound/tissue perfusion consistent with or improved from baseline levels established preoperatively The patient is at or returning to normothermia at the conclusion of the immediate postoperative period The patient's respiratory function is consistent with or improved from baseline levels established preoperatively The patient's cardiovascular status is consistent with or improved from baseline levels established preoperatively The patient's cardiovascular status is consistent with or improved from baseline levels established preoperatively The patient demonstrates and/or reports adequate pain control throughout the perioperative period The patient received appropriate medication(s), safely administered during the perioperative period Acuity Level PACU I FT Entry 1 Start Time 04/02/25 09:55:00 Stop Time 04/02/25 10:25:00 Acuity Level Acuity Level I Last Modified By: Anna Mercado RN 04/02/25 10:49:26 Finalized By: Anna Mercado RN Document Signatures Signed By: Anna Mercado RN 04/02/25 10:49 Normal [facility] Main OR Preoperative Recordo n 04-02-2025 Main OR Preoperative Record Main OR Preoperative Record Holding Area Document Type FT Summary Primary Physician: Lili Hatfield MD Finalized Date/Time: 04/02/25 08:04:31 Pt. Name: ODESSA IRELAND/Sex: 1980 Female Med Rec #: [id number] Physician: Lili Hatfield MD Financial #: [id number] Pt. Type: O Room/Bed: / Admit/Disch: 04/02/25 07:52:55 - Institution: Case Times Holding FT Pre-Care Text: Verifies consent for planned procedure, identifies individual values and wishes concerning care, includes family members in perioperative teaching Secures patient's records' belongings, and valuables, maintains patient's dignity and privacy, and maintains patient confidentiality Entry 1 In Holding 04/02/25 08:01:00 Outcomes Met? Yes Last Modified By: Brien Moore RN 04/02/25 08:02:23 Post-Care Text: The patient participates in decisions affecting his or her perioperative plan of care The patient's right to privacy is maintained Surgery Checklist FT Entry 1 Patient Birthday, ID Band Procedure History and Physical, Identification: Check, Patient Verification: Surgical Consent, With Participation Patient NPO after Midnight: No Date/Time: 04/02/25 05:15:00 Results Reviewed clear-yellow liquid Personal Items: Contact Lenses, Jewelry Comments: bowel reuslts Personal Items clothing, shoes, Limitations: none Comment: contact lenses, rings Complaints of Pain: No Pain Comment: denies Operative Site n/a Marked By: n/a Marking: Location: n/a Availability Equipment Verified: Does Patient Smoke No Patient states Yes Comment - Adult mom at bedside postop adult Supervision supervision available Case Cancelled in No Holding Area see comments below for reason Last Modified By: Brien Moore RN 04/02/25 08:04:30 General Comments: pt finished bowel prep at 0515, per patient nothing to eat or drink since MSRN Nulytely bowel prep Finalized By: Brien Moore RN Document Signatures Signed By: Brien Moore RN 04/02/25 08:04 Normal [facility] Operative Reporton Operative Report Operative Report Patient: ODESSA IRELAND Age: 44 years Sex: Female : 1980 Associated Diagnoses: None Author: Lili Hatfield MD Pre-Procedure Procedure Date 04/02/2025 09:52:00 . Procedure Type: Colonoscopy. Procedure provider Performed by Liil Hatfield MD. Current history and physical Documented on chart. Port ([id number]) on 10/15/2022 at 42 Years. Comments: 06/18/2023 9:34 EDT - Gonsalez ENDBANDER, Kylee L placement, right side Total hysterectomy ([id number]) on 10/17/2016 at 36 Years. Partial hysterectomy ([id number]) on 10/25/2015 at 35 Years. Tonsillectomy ([id number]) on 12/19/2012 at 32 Years. Cholecystectomy ([id number]) on 07/06/2008 at 27 Years. Tubal ligation ([id number]) on 05/23/2008 at 27 Years. delivery ([id number]) on 05/23/2008 at 27 Years. delivery ([id number]) on 07/02/2003 at 22 Years. Carpal tunnel ([id number]). Comments: 06/18/2023 9:34 Kylee Wu LPN 2016. Past Medical History No active or resolved past medical history items have been selected or recorded.. Family History Hypertension Father Mother Brother Heart disease Mother Diabetes mellitus type 2 Mother Liposarcoma Father . Procedure History Port ([id number]) on 10/15/2022 at 42 Years. Comments: 06/18/2023 9:34 QIANT Jami Gonsalez LPN Kylee L placement, right side Total hysterectomy ([id number]) on 10/17/2016 at 36 Years. Partial hysterectomy ([id number]) on 10/25/2015 at 35 Years. Tonsillectomy ([id number]) on 12/19/2012 at 32 Years. Cholecystectomy ([id number]) on 07/06/2008 at 27 Years. Tubal ligation ([id number]) on 05/23/2008 at 27 Years. delivery ([id number]) on 05/23/2008 at 27 Years. delivery ([id number]) on 07/02/2003 at 22 Years. Carpal tunnel ([id number]). Comments: 06/18/2023 9:34 Kylee Wu LPN 2016. Colorectal neoplasm risk assessment Average risk. Informed Consent After discussing the rationale, risks and benefits, and alternatives to this procedure, the patient provided signed consent for the procedure. Pre-procedure diagnosis: Diagnostic: anemia. Medications (Selected) Inpatient Medications Ordered Lactated Ringers IV Ivonne 1000 mL 1,000 mL: 1,000 mL, IV, 100 mL/hr, Routine, Start date 04/02/25 8:13:00 EDT, 10 hour(s), Total volume (mL): 1,000, 116 kg, 2.31, m2 Sodium Chloride 0.9% IV Ivonne 1000 mL 1,000 mL: 1,000 mL, IV, 20 mL/hr, Routine, Start date 04/02/25 6:36:00 EDT, 50 hour(s), Total volume (mL): 1,000, 116 kg, 2.31, m2 Prescriptions Prescribed Wegovy (1 mg dose) subcutaneous solution: See Instructions, INJECT 1 MG UNDER THE SKIN ONCE WEEKLY, # 6 mL, Refills(s) 0, Pharmacy: [facility] [id number], 165, cm, 01/16/25 9:50:00 EDT, Height/Length Dosing, 117.5, kg, 01/16/25 9:50:00 EDT, Weight Dosing amitriptyline 150 mg Tab: See Instructions, TAKE 1 TABLET BY MOUTH EVERY NIGHT AT BEDTIME, # 90 tab(s), Refills(s) 0, Pharmacy: [facility] [id number], 165, cm, 02/21/25 9:06:00 EDT, Height/Length Dosing, 117.8, kg, 02/21/25 9:06:00 EDT, Weight Dosing atorvastatin 40 mg Tab: See Instructions, TAKE 1 TABLET BY MOUTH DAILY, # 90 tab(s), Refills(s) 1, Pharmacy: [facility] [id number], 165, cm, 10/17/24 10:07:00 EST, Height/Length Dosing, 116.3, kg, 10/17/24 10:07:00 EST, Weight Dosing ferrous sulfate 325 mg oral enteric coated tablet: 325 mg = 1 tab(s), Oral, Daily, # 90 tab(s), Refills(s) 3, Pharmacy: [facility] [id number], 165, cm, 03/14/25 14:59:00 EDT, Height/Length Dosing, 1,171, kg, 03/14/25 14:59:00 EDT, Weight Dosing metformin 500 mg Tab: See Instructions, take 1 tablet by mouth twice a day, # 180 tab(s), Refills(s) 1, Pharmacy: [facility] [id number], 165, cm, 10/17/24 10:07:00 EST, Height/Length Dosing, 116.3, kg, 10/17/24 10:07:00 EST, Weight Dosing omeprazole 20 mg Cap-DR: See Instructions, take 1 capsule by mouth once daily, # 90 cap(s), Refills(s) 1, Pharmacy: [facility] [id number], 165, cm, 10/17/24 10:07:00 EST, Height/Length Dosing, 116.3, kg, 10/17/24 10:07:00 EST, Weight Dosing Documented Medications Documented Ativan 0.5 mg Tab: 0.5 mg = 1 tab(s), Oral, Daily, PRN as needed for anxiety, Refills(s) 0 BACLOFEN 10 MG TABLET: BACLOFEN 10 MG TABLET, take 1 TO 2 tablet by mouth three times a day Colace: Refills(s) 0 Imitrex 50 mg Tab: See Instructions, Refills(s) 0 Non-Formulary Medication: Tysabri Infusion every 28 days Vitamin B12 2500 mcg sublingual tablet: Refills(s) 0 Vitamin D3 1000 intl units (25 mcg) Tab: 25 mcg = 1 tab(s), Oral, Daily, Refills(s) 0 aripiprazole 5 mg Tab: 5 mg = 1 tab(s), Oral, Daily, # 30 tab(s), Refills(s) 0 biotin 5000 mcg oral capsule: See Instructions, 2 caps every morning, Refills(s) 0 gabapentin 400 mg Cap: See Instructions, 2 cap(s) in the AM, 1 cap at noon, 2 caps in the PM, Refills(s) 0 levetiracetam 500 mg Tab: 1,000 mg = 2 tab(s), Oral, BID, # 120 tab(s), Refills(s) 0 modafinil 100 mg Tab: 100 mg = 1 tab(s), Oral, qAM, # (more content not included)... Normal [facility] Comment on above: Result Comment: Elec tronically Signed By: Liu SOUZA, Lili Melissa.br\Date and Time Signed: 04/02/25 09:53 EDT Other Comment: Cyndee snow Attachment - attachment storage system not supported [id number] Can be viewed in source system Missing Attachment - attachment storage system not supported [id number] Can be viewed in source system Missing Attachment - attachment storage system not supported [id number] Can be viewed in source system Missing Attachment - attachment storage system not supported [id number] Can be viewed in source system Missing Attachment - attachment storage system not supported [id number] Can be viewed in source system Missing Attachment - attachment storage system not supported [id number] Can be viewed in source system Missing Attachment - attachment storage system not supported [id number] Can be viewed in source system Missing Attachment - attachment storage system not supported [id number] Can be viewed in source system Operative Report Operative Report Patient: ODESSA IRELAND Age: 44 years Sex: Female : 1980 Associated Diagnoses: None Author: Lili Hatfield MD Pre-Procedure Procedure Date 04/02/2025 09:37:00 . Procedure Type: Esophagogastroduodenoscop y with biopsy. Procedure provider Performed by Lili Hatfield MD. Current history and physical Documented on chart. Informed Consent After discussing the rationale, risks and benefits, and alternatives to this procedure, the patient provided signed consent for the procedure. Pre-procedure diagnosis: anemia. Medications (Selected) Inpatient Medications Ordered Lactated Ringers IV Ivonne 1000 mL 1,000 mL: 1,000 mL, IV, 100 mL/hr, Routine, Start date 04/02/25 8:13:00 EDT, 10 hour(s), Total volume (mL): 1,000, 116 kg, 2.31, m2 Sodium Chloride 0.9% IV Ivonne 1000 mL 1,000 mL: 1,000 mL, IV, 20 mL/hr, Routine, Start date 04/02/25 6:36:00 EDT, 50 hour(s), Total volume (mL): 1,000, 116 kg, 2.31, m2 Prescriptions Prescribed Wegovy (1 mg dose) subcutaneous solution: See Instructions, INJECT 1 MG UNDER THE SKIN ONCE WEEKLY, # 6 mL, Refills(s) 0, Pharmacy: [facility] [id number], 165, cm, 01/16/25 9:50:00 EDT, Height/Length Dosing, 117.5, kg, 01/16/25 9:50:00 EDT, Weight Dosing amitriptyline 150 mg Tab: See Instructions, TAKE 1 TABLET BY MOUTH EVERY NIGHT AT BEDTIME, # 90 tab(s), Refills(s) 0, Pharmacy: [facility] [id number], 165, cm, 02/21/25 9:06:00 EDT, Height/Length Dosing, 117.8, kg, 02/21/25 9:06:00 EDT, Weight Dosing atorvastatin 40 mg Tab: See Instructions, TAKE 1 TABLET BY MOUTH DAILY, # 90 tab(s), Refills(s) 1, Pharmacy: [facility] [id number], 165, cm, 10/17/24 10:07:00 EST, Height/Length Dosing, 116.3, kg, 10/17/24 10:07:00 EST, Weight Dosing ferrous sulfate 325 mg oral enteric coated tablet: 325 mg = 1 tab(s), Oral, Daily, # 90 tab(s), Refills(s) 3, Pharmacy: [facility] [id number], 165, cm, 03/14/25 14:59:00 EDT, Height/Length Dosing, 1,171, kg, 03/14/25 14:59:00 EDT, Weight Dosing metformin 500 mg Tab: See Instructions, take 1 tablet by mouth twice a day, # 180 tab(s), Refills(s) 1, Pharmacy: [facility] [id number], 165, cm, 10/17/24 10:07:00 EST, Height/Length Dosing, 116.3, kg, 10/17/24 10:07:00 EST, Weight Dosing omeprazole 20 mg Cap-DR: See Instructions, take 1 capsule by mouth once daily, # 90 cap(s), Refills(s) 1, Pharmacy: [facility] [id number], 165, cm, 10/17/24 10:07:00 EST, Height/Length Dosing, 116.3, kg, 10/17/24 10:07:00 EST, Weight Dosing Documented Medications Documented Ativan 0.5 mg Tab: 0.5 mg = 1 tab(s), Oral, Daily, PRN as needed for anxiety, Refills(s) 0 BACLOFEN 10 MG TABLET: BACLOFEN 10 MG TABLET, take 1 TO 2 tablet by mouth three times a day Colace: Refills(s) 0 Imitrex 50 mg Tab: See Instructions, Refills(s) 0 Non-Formulary Medication: Tysabri Infusion every 28 days Vitamin B12 2500 mcg sublingual tablet: Refills(s) 0 Vitamin D3 1000 intl units (25 mcg) Tab: 25 mcg = 1 tab(s), Oral, Daily, Refills(s) 0 aripiprazole 5 mg Tab: 5 mg = 1 tab(s), Oral, Daily, # 30 tab(s), Refills(s) 0 biotin 5000 mcg oral capsule: See Instructions, 2 caps every morning, Refills(s) 0 gabapentin 400 mg Cap: See Instructions, 2 cap(s) in the AM, 1 cap at noon, 2 caps in the PM, Refills(s) 0 levetiracetam 500 mg Tab: 1,000 mg = 2 tab(s), Oral, BID, # 120 tab(s), Refills(s) 0 modafinil 100 mg Tab: 100 mg = 1 tab(s), Oral, qAM, # 30 tab(s), Refills(s) 0 multivitamin: Refill(s) 0 sertraline 100 mg Tab: 150 mg = 1.5 tab(s), Refills(s) 0 Anticoagulant/antiplatele t None. ASA Classification: Class III. . Monitoring: See anesthesia record. . Procedure The procedure was performed in the hospital. See anesthesia record for sedation given during procedure. The patient was positioned starting in the left lateral decubitus position and with safety measures. Endoscope type used was an adult-size, introduced orally, advanced to the 2nd portion of the duodenum. No difficulty was encountered during the procedure. Views were excellent. The patient tolerated the procedure well. Findings 1. Normal esophagus Z-line at 35 cm. Hiatal hernia measuring 2 cm. Small tongue of salmon-colored mucosa (C0 M1) status post biopsies 2. Erythema in the entire stomach. Moderate. Biopsies of the stomach were taken to rule out H. pylori. Bilious fluid coating the stomach concerning for bile reflux 3. Normal duodenum. Biopsies obtained Images Procedure images: Rec_hd_video_ [id number] Rec_hd_video_ [id number]_video__[id number]_hd_video__[id number].jpg [id number]_video_[id number].jpg [id number]_[id number].jpg (Inserted Image. Unable (more content not included)... Normal [facility] Comment on above: Result Comment: Elec tronically Signed By: Liu SOUZA, Lili Melissa.br\Date and Time Signed: 04/02/25 09:39 EDT Other Comment: Cyndee snow Attachment - attachment storage system not supported [id number] Can be viewed in source system Missing Attachment - attachment storage system not supported [id number] Can be viewed in source system Missing Attachment - attachment storage system not supported [id number] Can be viewed in source system Missing Attachment - attachment storage system not supported [id number] Can be viewed in source system Missing Attachment - attachment storage system not supported [id number] Can be viewed in source system Missing Attachment - attachment storage system not supported [id number] Can be viewed in source system Missing Attachment - attachment storage system not supported [id number] Can be viewed in source system Missing Attachment - attachment storage system not supported [id number] Can be viewed in source system Missing Attachment - attachment storage system not supported [id number] Can be viewed in source system Missing Attachment - attachment storage system not supported [id number] Can be viewed in source system Gastroenterology Office/Clin ic Noteon 03-26-2025 Gastroenterology Office/Clinic Note Gastroenterology Office/Clinic Note Chief Complaint ref by oncology for rectal bleeding and STEVE HPI Staff NEW- Patient is a(n) 44 year old female who was referred by Td Loera for rectal bleeding and STEVE. Rectal bleeding: Sees some blood in stools, sometimes in the toilet When did this start? about a month, getting more frequent. Any rectal pain? yes the stool is hard, yes. Normally, no. Reports colonoscopy done 2018 in [place], do not have those reports available today to review. STEVE: Some dark stools Taking oral iron supplement PMHx of MS, treated cervical cancer. Denies blood thinners. Denies GLP-1 agonists. Laboratory Results CBC CMP Hct: 37.7 % (02/21/25) A/G Ratio: 1.4 (02/21/25) HGB: 12.4 gm/dL (02/21/25) AGAP: 9 mEq/L (02/21/25) MCH: 26.5 pg Low (02/21/25) Albumin Lvl: 4 gm/dL (02/21/25) MCHC: 33 gm/dL (02/21/25) Alk Phos: 106 Int._Unit/L High (02/21/25) MCV: 80.3 fL (02/21/25) ALT: 20 Int._Unit/L (02/21/25) MPV: 6.3 fL Low (02/21/25) AST: 17 Int._Unit/L (02/21/25) Platelet: 281 E9/L (02/21/25) Bili Total: 0.2 mg/dL (02/21/25) RBC: 4.7 E12/L (02/21/25) BUN: 10 mg/dL (02/21/25) RDW: 16 % High (02/21/25) BUN/Creat Ratio: 17 (02/21/25) WBC: 13.3 E9/L High (02/21/25) Calcium Lvl: 9 mg/dL (02/21/25) Chloride: 106 mmol/L (02/21/25) CO2: 30 mmol/L (02/21/25) Creatinine: 0.6 mg/dL (02/21/25) Globulin: 2.9 gm/dL (02/21/25) Glucose Lvl: 87 mg/dL (02/21/25) Potassium Lvl: 4.1 mmol/L (02/21/25) Sodium Lvl: 141 mmol/L (02/21/25) Total Protein: 6.9 gm/dL (02/21/25) Ferritin Lvl: 19 ng/mL (02/21/25) Iron: 43 mcg/dL (02/21/25) TIBC: 358 mcg/dL (02/21/25) Transferrin: 256 (02/21/25) Iron Sat: 12% Low (02/21/25) Ferritin: 19 (02/21/25) Vitamin B12: 927 (02/19/25) Folate: >22.3 (02/19/25) History of Present Illness I have reviewed HPI staff note, most recent labs and imaging, I agree with the above documentation with the following additions/exceptions : pt with BRBPR x 1 months most of the times in the toilet ball on softeners for hard BM pt with dark stool on iron supplementations hx of colonoscopy hx of fatty liver rectal pain with hard stool some nsaids use , very little , once a month Review of Systems PHQ Score Initial Depression Screen Score: 0 SCORE All systems reviewed, negative except as mentioned above Physical Exam Vitals & Measurements HR: 63(Peripheral) RR: 16 BP: 122/87 HT: 165 cm HT: 65 in WT: 255.736 lb WT: 116 kg BMI: 42.61 General: alert, no acute distress HEENT: atraumatic normocephalic Cardiovascular: regular rate and rhythm, normal peripheral perfusion Respiratory: Lungs CTA, respirations non labored Extremities: no deformity, no trauma Abdomen: Benign, soft, nontender nondistended Assessment/Plan 1. STEVE (iron deficiency anemia) (D50.9: Iron deficiency anemia, unspecified) Ordered: Colonoscopy (Hospital Procedure) Current tobacco non-user 1036F EGD Endoscopy (Hospital Procedure) Most recent diastolic blood pressure 80-89 mm Hg 3079F Systolic BP <130 mm Hg (Most Recent) 3074F 2. Rectal bleeding (K62.5: Hemorrhage of anus and rectum) Ordered: Colonoscopy (Hospital Procedure) Current tobacco non-user 1036F EGD Endoscopy (Hospital Procedure) Most recent diastolic blood pressure 80-89 mm Hg 3079F Systolic BP <130 mm Hg (Most Recent) 3074F 3. Elevated alkaline phosphatase level (R74.8: Abnormal levels of other serum enzymes) Ordered: Colonoscopy (Hospital Procedure) EGD Endoscopy (Hospital Procedure) 4. Fatty liver (K76.0: Fatty (change of) liver, not elsewhere classified) 5. Obesity due to excess calories (E66.09: Other obesity due to excess calories) Patient benefits from losing weight and eating healthy Repeat alkaline phosphatase after 3 to 6 months Schedule upper endoscopy small bowel biopsies to evaluate melena and anemia Schedule colonoscopy with TI evaluation Follow-up No qualifying data available Problem List/Past Medical History Ongoing Anxiety BMI 40.0-44.9, adult Diastolic dysfunction Elevated alkaline phosphatase level Excessive dietary caloric intake Family history of breast cancer Fatty liver Headache History of cerebrovascular accident without residual deficits Hx of stroke without residual deficits STEVE (iron deficiency anemia) Immunodeficiency due to drugs Leukocytosis (leucocytosis) Major depressive disorder, recurrent, in full remission Morbid obesity with BMI of 40.0-44.9, adult MS (multiple sclerosis) Neuropathy Nonsmoker Obesity due to excess calories Obesity, morbid, BMI 40.0-49.9 PTSD (post-traumatic stress disorder) Raynauds disease Rectal bleeding Right ankle sprain Sinus tachycardia Syncope Type 2 diabetes mellitus with diabetic neuropathy Historical No qualifying data Procedure/Surgical History Port (10/15/2022), Total hysterectomy (10/17/2016), Partial hysterectomy (10/25/2015), Tonsillec (more content not included)... Normal [facility] Comment on above: Result Comment: Elec tronically Signed By: Liu SOUZA, Lili Suarez\.br\Date and Time Signed: 03/26/25 12:44 EDT Comp panel: Leuk/Lym [id number] n 02-23-2025 Analysis and Gating Strategy Comment Invalid Interpretation Code [facility] Comment on above: Result Comment: 8 co renetta analysis with CD45/SSC gating Technical-Analysis performed at [place] [address], [facility], [address], [facility] [address], Director: Oliver Santiago, [facility], Performed By: #### 1 [id number] #### [facility] [address] [place] [address] Assessment of Leukocytes Comment Invalid Interpretation Code [facility] Comment on above: Result Comment: No m onoclonal B cell population is detected. kappa:lambda ratio 1.7 There is no loss of, or aberrant expression of, the funes T cell antigens to suggest a neoplastic T cell process. CD4:CD8 ratio 2.2 No circulating blasts are detected. There is no immunophenotypic evidence of abnormal myeloid maturation. Analysis of the leukocyte population shows: granulocytes 43%, monocytes 6%, lymphocytes 51%, blasts <0.1%, B cells 13%, T cells 28%, NK cells 10% Performed By: #### 1 [id number] #### [facility] [address] [place] [address] Clinical Info. Comment Invalid Interpretation Code [facility] Comment on above: Result Comment: A re cent CBC was not available for review at the time this report was prepared. Performed By: #### 1 [id number] #### [facility] [address] [place] [address] Comment: Comment Invalid Interpretation Code [facility] Comment on above: Result Comment: Each antibody in this assay was utilized to assess for potential abnormalities of studied cell populations or to characterize identified abnormalities. This test was developed and its performance characteristics determined by [facility]. It has not been cleared or approved by the U.S. Food and Drug Administration. The FDA has determined that such clearance or approval is not necessary. This test is used for clinical purposes. It should not be regarded as investigational or for research. Performed at: -[facility] [address] [facility] [place], [place] [id number] [facility] Performed at: TG [facility] [address] [place], [place] [id number] [facility] Chenn Anjen Performed By: #### 1 [id number] #### [facility] [address] [place] [id number] Flow Comment Comment Invalid Interpretation Code [facility] Comment on above: Result Comment: Daren mmend clinical/CBC correlation and follow up as appropriate. Performed By: #### 1 [id number] #### [facility] [address] [place] [address] Flow Interpretation Comment Invalid Interpretation Code [facility] Comment on above: Result Comment: No s ignificant immunophenotypic abnormality detected. Performed By: #### 1 [id number] #### [facility] [address] [place] [address] Phenotype Chart Comment Invalid Interpretation Code [facility] Comment on above: Result Comment: CD2 Normal CD3 Normal CD4 Normal CD5 Normal CD7 Normal CD8 Normal CD10 Normal CD11b Normal CD13 Normal CD14 Normal CD16 Normal CD19 Normal CD20 Normal CD33 Normal CD34 Normal CD38 Normal CD45 Normal CD56 Normal CD57 Normal CD64 Normal CD117 Normal HLA-DR Normal KAPPA Normal LAMBDA Normal Performed By: #### 1 [id number] #### [facility] [address] [place] [address] Resulting Path Name Comment Invalid Interpretation Code [facility] Comment on above: Result Comment: Bre Gómez M.D. Ph.D Performed By: #### 1 [id number] #### [facility] [address] [place] [address] Specimen type Nom (Spec) Comment Invalid Interpretation Code [facility] Comment on above: Result Comment: Marilin pheral blood Performed By: #### 1 [id number] #### [facility] [address] [place] [address] Viability Comment Invalid Interpretation Code [facility] Comment on above: Result Comment: 98% Performed By: #### 1 [id number] #### [facility] [address] [place] [address] Flow Interp 16 or moreon Flow Interp 16 or more Performed Invalid Interpretation Code [facility] Comment on above: Result Comment: Perf ormed at: -Y [facility] [address] [place] [id number] MDP Chenn Anjen Performed By: #### 1 [id number] #### [facility] [address] [place] [address] Flow Marker, Firston 025 Flow Marker, First Performed Invalid Interpretation Code [facility] Comment on above: Result Comment: Perf ormed at: -[facility] [address] [place] [id number] MDPhD Chenn Anjen Performed By: #### 1 [id number] #### [facility] [address] [place] [address] Flow Markers X 15on 02-24-20 25 Flow Markers X 15 Performed Invalid Interpretation Code [facility] Comment on above: Result Comment: Perf ormed at: -[facility] [address] [place] [id number] [facility] Chenn Anjen Performed By: #### 1 [id number] ####[facility] [address] [place] [address] Flow Markers X 3on 5 Flow Markers X 3 Performed Invalid Interpretation Code [facility] Comment on above: Result Comment: Perf ormed at: -[facility] [address] [place] [id number] [facility] Chenn Anjen Performed By: #### 1 [id number] #### [facility] [address] [place] [address] Flow Markers X 5on 5 Flow Markers X 5 Performed Invalid Interpretation Code [facility] Comment on above: Result Comment: Perf ormed at: -[facility] [address] [place] [id number] [facility] Chenn Anjen Performed By: #### 1 [id number] #### [facility] [address] [place] [address] CBC w/ Auto Diffon 5 Anisocytosis Ql (Bld) PRESENT Invalid Interpretation Code [facility] Comment on above: Performed By: #### 2 [id number] #### [facility] [address] [place] [address] Basophil Abs Man 0.0 E9/L Normal 0.0-0.2 [facility] Comment on above: Performed By: #### 2 [id number] #### [facility] [address] [place] [address] Eos Abs Man 0.4 E9/L Normal 0.0-0.5 [facility] Comment on above: Performed By: #### 2 [id number] #### [facility] [address] [place] [address] Hypochromasia PRESENT Invalid Interpretation Code [facility] Comment on above: Performed By: #### 2 [id number] #### [facility] [address] [place] [address] Lymph Abs Man 8.8 E9/L High 1.0-4.0 [facility] Comment on above: Performed By: #### 2 [id number] #### [facility] [address] [place] [address] Preble Abs Man 0.9 E9/L Normal 0.2-1.0 [facility] Comment on above: Performed By: #### 2 [id number] #### [facility] [address] [place] [address] Neutro Abs Man 3.2 E9/L Invalid Interpretation Code [facility] Comment on above: Performed By: #### 2 [id number] #### [facility] [address] [place] [address] NRBC Man 1.0 % High 0.0-0.0 [facility] Comment on above: Performed By: #### 2 [id number] #### [facility] [address] [place] [address] Ovalocytes PRESENT Invalid Interpretation Code [facility] Comment on above: Performed By: #### 2 [id number] #### [facility] [address] [place] [address] Platelet 281.0 E9/L Normal 150.0-500.0 [facility] Comment on above: Performed By: #### 2 [id number] #### [facility] [address] [place] [address] Polychromasia PRESENT Invalid Interpretation Code [facility] Comment on above: Performed By: #### 2 [id number] #### [facility] [address] [place] [address] RBC 4.7 E12/L Normal 4.3-5.9 [facility] Comment on above: Performed By: #### 2 [id number] #### [facility] [address] [place] [address] RBC morphology finding Nom (Bld) SEE MORPHOLOGY Invalid Interpretation Code [facility] Comment on above: Performed By: #### 2 [id number] #### [facility] [address] [place] [address] React Lymph Man 18.0 % High 0.0-0.0 [facility] Comment on above: Performed By: #### 2 [id number] #### [facility] [address] [place] [address] Segs Man 24.0 % Low 36.0-75.0 [facility] Comment on above: Performed By: #### 2 [id number] #### [facility] [address] [place] [address] WBC 13.3 E9/L High 4.0-11.0 [facility] Comment on above: Performed By: #### 2 [id number] #### [facility] [address] [place] [address] CBC w/ Auto DiffOrdered By: SYSTEM SYSTEM on 02-21-2025 Basophils/100 WBC (Bld) 0.0 % Normal 0.0-2.0 [facility] Comment on above: Performed By: #### 2 [id number] #### [facility] [address] [place] [address] Eosinophils/100 WBC (Bld) 3.0 % Normal 0.0-8.0 [facility] Comment on above: Performed By: #### 2 [id number] #### [facility] [address] [place] [address] Erythrocyte distribution width (RBC) [Ratio] 16.0 % High 10.9-14.2 [facility] Comment on above: Performed By: #### 2 [id number] #### [facility] [address] [place] [address] Hematocrit (Bld) [Volume fraction] 37.7 % Normal 34.0-46.0 [facility] Comment on above: Performed By: #### 2 [id number] #### [facility] [address] [place] [address] Hemoglobin (Bld) [Mass/Vol] 12.4 g/dL Normal 12.0-16.0 [facility] Comment on above: Performed By: #### 2 [id number] #### [facility] [address] [place] [address] Lymphocytes/100 WBC (Bld) 48.0 % Normal 14.0-50.0 [facility] Comment on above: Performed By: #### 2 [id number] #### Jose Alberto [facility] [address] [place] [address] MCH (RBC) [Entitic mass] 26.5 pg Low 27.0-34.0 [facility] Comment on above: Performed By: #### 2 [id number] #### Jose Alberto [facility] [address] [place] [address] MCHC (RBC) [Mass/Vol] 33.0 g/dL Normal 31.4-36.0 [facility] Comment on above: Performed By: #### 2 [id number] #### Jose Alberto [facility] [address] [place] [address] MCV (RBC) [Entitic vol] 80.3 fL Normal 80.0-100.0 [facility] Comment on above: Performed By: #### 2 [id number] #### Jose Alberto [facility] [address] [place] [address] Monocytes/100 WBC (Bld) 7.0 % Normal 4.0-14.0 [facility] Comment on above: Performed By: #### 2 [id number] #### Abrams [facility] [address] [place] [address] Platelet mean volume (Bld) [Entitic vol] 6.3 fL Low 6.4-10.8 [facility] Comment on above: Performed By: #### 2 [id number] #### Jose Alberto [facility] [address] [place] [address] CHEMISTRYOrdered By: SYSTEM SYSTEM on 02-21-2025 ALP [Catalytic activity/Vol] 106 [iU]/d High 21 - 98 Int._Unit/L [facility] ALT No additional P-5'-P [Catalytic activity/Vol] 20 [iU]/d Normal 6 - 46 Int._Unit/L [facility] AST [Catalytic activity/Vol] 17 [iU]/d Normal 5 - 43 Int._Unit/L [facility] Bilirubin [Mass/Vol] 0.2 mg/dL Normal 0.0 - 1.1 mg/dL [facility] Ferritin [Mass/Vol] 19 ng/mL Normal 11 - 307 ng/mL R [facility] GFR/1.73 sq M.predicted MDRD (S/P/Bld) [Vol rate/Area] 114 mL/min/1.73 m2 Normal >=59mL/min/1.7 3 m2 [facility] Iron [Mass/Vol] 43 ug/dL Normal 35 - 153 mcg/dL [facility] Iron binding capacity [Mass/Vol] 358 ug/dL Normal 250 - 400 mcg/dL [facility] Iron saturation [Mass fraction] 12 % Low 20 - 50 % [facility] Urea nitrogen/Creatinine [Mass ratio] 17 mg/mg Normal 10 - 20 [facility] CMPOrdered By: SYSTEM SYSTEM on 02-21-2025 Albumin [Mass/Vol] 4.0 g/dL Normal 3.3-5.0 [facility] Comment on above: Performed By: #### 2 [id number] #### Jose Alberto [facility] [address] [place] [address] Albumin/Globulin [Mass ratio] 1.4 {ratio} Normal 1.1-2.2 [facility] Comment on above: Performed By: #### 2 [id number] #### Jose Alberto [facility] [address] [place] [address] Anion gap [Moles/Vol] 9 mmol/L Normal 6-16 [facility] Comment on above: Performed By: #### 2 [id number] #### Jose Alberto [facility] [address] [place] [address] Calcium [Mass/Vol] 9.0 mg/dL Normal 8.9-11.1 [facility] Comment on above: Performed By: #### 2 [id number] #### Jose Alberto [facility] [address] [place] [address] Chloride [Moles/Vol] 106 mmol/L Normal 101-111 [facility] Comment on above: Performed By: #### 2 [id number] #### Jose Alberto [facility] [address] [place] [address] CO2 [Moles/Vol] 30 mmol/L Normal 21-31 [facility] Comment on above: Performed By: #### 2 [id number] #### [facility] [address] [place] [address] Creatinine [Mass/Vol] 0.6 mg/dL Normal 0.5-1.3 [facility] Comment on above: Performed By: #### 2 [id number] #### [facility] [address] [place] [address] Globulin (S) [Mass/Vol] 2.9 g/dL Normal 1.4-4.0 [facility] Comment on above: Performed By: #### 2 [id number] #### [facility] [address] [place] [address] Glucose [Mass/Vol] 87 mg/dL Normal 55-199 [facility] Comment on above: Performed By: #### 2 [id number] #### [facility] [address] [place] [address] Potassium [Moles/Vol] 4.1 mmol/L Normal 3.5-5.3 [facility] Comment on above: Performed By: #### 2 [id number] #### [facility] [address] [place] [address] Protein [Mass/Vol] 6.9 g/dL Normal 6.0-7.8 [facility] Comment on above: Performed By: #### 2 841129 #### [facility] [address] [place] [address] Sodium [Moles/Vol] 141 mmol/L Normal 135-145 [facility] Comment on above: Performed By: #### 2 704802 #### [facility] [address] [place] [address] Urea nitrogen [Mass/Vol] 10 mg/dL Normal 5-21 [facility] Comment on above: Performed By: #### 2 [id number] #### [facility] [address] [place] [address] CMPon 02-21-2025 Alk Phos 106 Int._Unit/L High 21-98 [facility] Comment on above: Performed By: #### 2 230223 #### [facility] [address] [place] [address] ALT 20 Int._Unit/L Normal 6-46 [facility] Comment on above: Performed By: #### 2 [id number] #### [facility] [address] [place] [address] AST 17 Int._Unit/L Normal 5-43 [facility] Comment on above: Performed By: #### 2 737407 #### [facility] [address] [place] [address] Bili Total 0.2 mg/dL Normal 0.0-1.1 [facility] Comment on above: Performed By: #### 2 851783 #### [facility] [address] [place] [address] BUN/Creat Ratio 17 No Units Normal 10-20 [facility] Comment on above: Performed By: #### 2 [id number] #### [facility] [address] [place] [address] Ferritinon 02-21-2025 Ferritin Lvl 19 ng/mL Normal 11-307 [facility] Comment on above: Performed By: #### 2 378507 #### [facility] [address] [place] [address] HEMATOLOGYOrdered By: SYSTEM SYSTEM on 02-21-2025 Anisocytosis Ql (Bld) PRESENT *NA* (02/21/25 10:00 AM) Invalid Interpretation Code [facility] Basophils (Bld) [#/Vol] 0.0 E9/L Normal 0.0 - 0.2 E9/L [facility] Eosinophils (Bld) [#/Vol] 0.4 E9/L Normal 0.0 - 0.5 E9/L [facility] Hypochromia Auto Ql (Bld) PRESENT *NA* (02/21/25 10:00 AM) Invalid Interpretation Code [facility] Lymphocytes (Bld) [#/Vol] 8.8 E9/L High 1.0 - 4.0 E9/L [facility] Monocytes (Bld) [#/Vol] 0.9 E9/L Normal 0.2 - 1.0 E9/L [facility] Neutrophils (Bld) [#/Vol] 3.2 E9/L Invalid Interpretation Code [facility] Nucleated cells (Bld) [#/Vol] 1.0 % High 0.0 - 0.0 % [facility] Ovalocytes LM Ql (Bld) PRESENT *NA* (02/21/25 10:00 AM) Invalid Interpretation Code [facility] Platelets (Bld) [#/Vol] 281.0 E9/L Normal 150.0 - 500.0 E9/L [facility] Polychromasia LM Ql (Bld) PRESENT *NA* (02/21/25 10:00 AM) Invalid Interpretation Code [facility] RBC (Bld) [#/Vol] 4.7 E12/L Normal 4.3 - 5.9 E12/L [facility] RBC size Nom (Bld) SEE MORPHOLOGY *NA* (02/21/25 10:00 AM) Invalid Interpretation Code [facility] Segmented neutrophils/100 WBC (Bld) 24.0 % Low 36.0 - 75.0 % [facility] Variant lymphocytes/100 WBC (Bld) 18.0 % High 0.0 - 0.0 % [facility] WBC corrected for nucl RBC Auto (Bld) [#/Vol] 13.3 E9/L High 4.0 - 11.0 E9/L [facility] Ironon 02-21-2025 Iron 43 microgram/dL Normal 35-153 [facility] Comment on above: Performed By: #### 2 [id number] #### [facility] [address] [place] [address] Iron Saturationon 02-21-2025 Iron Sat 12 % Low 20-50 [facility] Comment on above: Performed By: #### 2 [id number] #### [facility] [address] [place] [address] TIBC 358 microgram/dL Normal 250-400 [facility] Comment on above: Performed By: #### 2 [id number] #### [facility] [address] [place] [address] TransferrinOrdered By: Funnely on 02-21-2025 Transferrin [Mass/Vol] 256 mg/dL Normal 200-370 [facility] Comment on above: Performed By: #### 2 [id number] #### [facility] [address] [place] [address] eGFRon 02-21-2025 eGFR 114 mL/min/1.73 m2 Normal >=59 [facility] Comment on above: Performed By: #### 1 [id number] #### [facility] [address] [place] [address] CBC w/ Auto Diffon 5 Basophil Abs Man 0.0 E9/L Normal 0.0-0.2 [facility] Comment on above: Performed By: #### 2 [id number] #### [facility] [address] [place] [address] Basophils/100 WBC (Bld) 0.0 % Normal 0.0-2.0 [facility] Comment on above: Performed By: #### 2 [id number] #### [facility] [address] [place] [address] Eos Abs Man 0.4 E9/L Normal 0.0-0.5 [facility] Comment on above: Performed By: #### 2 [id number] #### [facility] [address] [place] [address] Eosinophils/100 WBC (Bld) 3.0 % Normal 0.0-8.0 [facility] Comment on above: Performed By: #### 2 708154 #### [facility] [address] [place] [address] Erythrocyte distribution width (RBC) [Ratio] 16.0 % High 10.9-14.2 [facility] Comment on above: Performed By: #### 2 [id number] #### [facility] [address] [place] [address] Hematocrit (Bld) [Volume fraction] 40.0 % Normal 34.0-46.0 [facility] Comment on above: Performed By: #### 2 549285 #### [facility] [address] [place] [address] Hemoglobin (Bld) [Mass/Vol] 13.1 g/dL Normal 12.0-16.0 [facility] Comment on above: Performed By: #### 2 [id number] #### [facility] [address] [place] [address] Hypochromasia PRESENT Invalid Interpretation Code [facility] Comment on above: Performed By: #### 2 487663 #### [facility] [address] [place] [address] Lymph Abs Man 8.6 E9/L High 1.0-4.0 [facility] Comment on above: Performed By: #### 2 [id number] #### [facility] [address] [place] [address] Lymphocytes/100 WBC (Bld) 55.0 % High 14.0-50.0 [facility] Comment on above: Performed By: #### 2 [id number] #### [facility] [address] [place] [address] MCH (RBC) [Entitic mass] 25.8 pg Low 27.0-34.0 [facility] Comment on above: Performed By: #### 2 038346 #### [facility] [address] [place] [address] MCHC (RBC) [Mass/Vol] 32.8 g/dL Normal 31.4-36.0 [facility] Comment on above: Performed By: #### 2 397901 #### [facility] [address] [place] [address] MCV (RBC) [Entitic vol] 78.6 fL Low 80.0-100.0 [facility] Comment on above: Performed By: #### 2 [id number] #### [facility] [address] [place] [address] Microcyte PRESENT Invalid Interpretation Code [facility] Comment on above: Performed By: #### 2 971205 #### [facility] [address] [place] [address] Preble Abs Man 0.3 E9/L Normal 0.2-1.0 [facility] Comment on above: Performed By: #### 2 [id number] #### [facility] [address] [place] [address] Monocytes/100 WBC (Bld) 2.0 % Low 4.0-14.0 [facility] Comment on above: Performed By: #### 2 331332 #### [facility] [address] [place] [address] Neutro Abs Man 4.2 E9/L Invalid Interpretation Code [facility] Comment on above: Performed By: #### 2 556584 #### [facility] [address] [place] [address] NRBC Man 2.0 % High 0.0-0.0 [facility] Comment on above: Performed By: #### 2 615698 #### [facility] [address] [place] [address] Platelet 312.0 E9/L Normal 150.0-500.0 [facility] Comment on above: Performed By: #### 2 327596 #### [facility] [address] [place] [address] Platelet mean volume (Bld) [Entitic vol] 6.6 fL Normal 6.4-10.8 [facility] Comment on above: Performed By: #### 2 027789 #### [facility] [address] [place] [address] RBC 5.1 E12/L Normal 4.3-5.9 [facility] Comment on above: Performed By: #### 2 253503 #### [facility] [address] [place] [address] RBC morphology finding Nom (Bld) SEE MORPHOLOGY Invalid Interpretation Code [facility] Comment on above: Performed By: #### 2 774553 #### [facility] [address] [place] [address] React Lymph Man 9.0 % High 0.0-0.0 [facility] Comment on above: Performed By: #### 2 953753 #### [facility] [address] [place] [address] Segs Man 31.0 % Low 36.0-75.0 [facility] Comment on above: Performed By: #### 2 590502 #### [facility] [address] [place] [address] WBC 13.4 E9/L High 4.0-11.0 [facility] Comment on above: Performed By: #### 2 055918 #### [facility] [address] [place] [address] CHEMISTRYOrdered By: SYSTEM SYSTEM on 02-19-2025 Cobalamin (Vitamin B12) [Mass/Vol] 927 pg/mL Normal 50 - 1500 pg/mL [facility] Folate [Mass/Vol] ng/mL Normal >=6.7ng/mL [facility] Iron [Mass/Vol] 64 ug/dL Normal 35 - 153 mcg/dL [facility] Iron binding capacity [Mass/Vol] 395 ug/dL Normal 250 - 400 mcg/dL [facility] Transferrin [Mass/Vol] 282 mg/dL Normal 200 - 370 mg/dL [facility] Folateon 02-19-2025 Folate Lvl >22.3 Normal >=6.7 [facility] Comment on above: Performed By: #### 2 707887 #### [facility] [address] [place] [address] HEMATOLOGYOrdered By: SYSTEM SYSTEM on 02-19-2025 Basophils (Bld) [#/Vol] 0.0 E9/L Normal 0.0 - 0.2 E9/L [facility] Basophils/100 WBC (Bld) 0.0 % Normal 0.0 - 2.0 % [facility] Eosinophils (Bld) [#/Vol] 0.4 E9/L Normal 0.0 - 0.5 E9/L [facility] Eosinophils/100 WBC (Bld) 3.0 % Normal 0.0 - 8.0 % [facility] Erythrocyte distribution width (RBC) [Ratio] 16.0 % High 10.9 - 14.2 % [facility] Hematocrit (Bld) [Volume fraction] 40.0 % Normal 34.0 - 46.0 % [facility] Hemoglobin (Bld) [Mass/Vol] 13.1 g/dL Normal 12.0 - 16.0 gm/dL [facility] Hypochromia Auto Ql (Bld) PRESENT *NA* (02/19/25 1:46 PM) Invalid Interpretation Code [facility] Lymphocytes (Bld) [#/Vol] 8.6 E9/L High 1.0 - 4.0 E9/L [facility] Lymphocytes/100 WBC (Bld) 55.0 % High 14.0 - 50.0 % [facility] MCH (RBC) [Entitic mass] 25.8 pg Low 27.0 - 34.0 pg Rem[facility]e MCHC (RBC) [Mass/Vol] 32.8 g/dL Normal 31.4 - 36.0 gm/dL [facility] MCV (RBC) [Entitic vol] 78.6 fL Low 80.0 - 100.0 fL [facility] Microcytes Ql (Bld) PRESENT *NA* (02/19/25 1:46 PM) Invalid Interpretation Code [facility] Monocytes (Bld) [#/Vol] 0.3 E9/L Normal 0.2 - 1.0 E9/L [facility]e Monocytes/100 WBC (Bld) 2.0 % Low 4.0 - 14.0 % [facility] Neutrophils (Bld) [#/Vol] 4.2 E9/L Invalid Interpretation Code [facility] Nucleated cells (Bld) [#/Vol] 2.0 % High 0.0 - 0.0 % [facility] Platelet mean volume (Bld) [Entitic vol] 6.6 fL Normal 6.4 - 10.8 fL [facility] Platelets (Bld) [#/Vol] 312.0 E9/L Normal 150.0 - 500.0 E9/L [facility] RBC (Bld) [#/Vol] 5.1 E12/L Normal 4.3 - 5.9 E12/L [facility] RBC size Nom (Bld) SEE MORPHOLOGY *NA* (02/19/25 1:46 PM) Invalid Interpretation Code [facility] Segmented neutrophils/100 WBC (Bld) 31.0 % Low 36.0 - 75.0 % [facility] Variant lymphocytes/100 WBC (Bld) 9.0 % High 0.0 - 0.0 % [facility] WBC corrected for nucl RBC Auto (Bld) [#/Vol] 13.4 E9/L High 4.0 - 11.0 E9/L [facility] Ironon 02-19-2025 Iron 64 microgram/dL Normal 35-153 [facility] Comment on above: Performed By: #### 2 [id number] #### [facility] [address] [place] [address] TIBC Calculatedon 02-19-2025 TIBC 395 microgram/dL Normal 250-400 [facility] Comment on above: Performed By: #### 1 [id number] #### [facility] [address] [place] [address] Transferrin [Mass/Vol] 282 mg/dL Normal 200-370 [facility] Comment on above: Performed By: #### 1 [id number] #### [facility] [address] [place] [address] Vit B12on 02-19-2025 Cobalamin (Vitamin B12) [Mass/Vol] 927 pg/mL Normal 50-1500 [facility] Comment on above: Performed By: #### 2 [id number] #### [facility] [address] [place] [address] Path. Reviewon 01-17-2025 Path Review Leukocytosis with lymphocytosis. Reactive monocytes and lymphocytes seen. Clinical correlation and follow-up is indicated for etiology. Invalid Interpretation Code [facility] Comment on above: Performed By: #### 1 [id number] #### [facility] [address] [place] [address] Path. Review Path Review Leukocytosis with lymphocytosis. Reactive monocytes and lymphocytes seen. Clinical correlation and follow-up is indicated for etiology. D72.829 CPT 10411 Invalid Interpretation Code [facility] CBC w/ Auto Diffon 5 Basophils (Bld) [#/Vol] 0.0 E9/L Normal 0.0-0.2 [facility] Comment on above: Performed By: #### 2 [id number] #### [facility] [address] [place] [address] Eosinophils (Bld) [#/Vol] 0.7 E9/L High 0.0-0.5 [facility] Comment on above: Performed By: #### 2 [id number] #### [facility] [address] [place] [address] Eosinophils/100 WBC (Bld) 6.0 % Normal 0.0-8.0 [facility] Comment on above: Performed By: #### 2 [id number] #### [facility] [address] [place] [address] Erythrocyte distribution width (RBC) [Ratio] 15.9 % High 10.9-14.2 [facility] Comment on above: Performed By: #### 2 [id number] #### [facility] [address] [place] [address] Hematocrit (Bld) [Volume fraction] 37.4 % Normal 34.0-46.0 [facility] Comment on above: Performed By: #### 2 [id number] #### [facility] [address] [place] [address] Hemoglobin (Bld) [Mass/Vol] 12.8 g/dL Normal 12.0-16.0 [facility] Comment on above: Performed By: #### 2 [id number] #### [facility] [address] [place] [address] Lymphocytes (Bld) [#/Vol] 6.3 E9/L High 1.0-4.0 [facility] Comment on above: Performed By: #### 2 [id number] #### [facility] [address] [place] [address] Lymphocytes/100 WBC (Bld) 35.0 % Normal 14.0-50.0 [facility] Comment on above: Performed By: #### 2 [id number] #### [facility] [address] [place] [address] MCH (RBC) [Entitic mass] 27.2 pg Normal 27.0-34.0 [facility] Comment on above: Performed By: #### 2 [id number] #### [facility] [address] [place] [address] MCHC (RBC) [Mass/Vol] 34.2 g/dL Normal 31.4-36.0 [facility] Comment on above: Performed By: #### 2 [id number] #### [facility] [address] [place] [address] MCV (RBC) [Entitic vol] 79.5 fL Low 80.0-100.0 [facility] Comment on above: Performed By: #### 2 [id number] #### [facility] [address] [place] [address] Monocytes (Bld) [#/Vol] 0.6 E9/L Normal 0.2-1.0 [facility] Comment on above: Performed By: #### 2 [id number] #### [facility] [address] [place] [address] Neutrophils (Bld) [#/Vol] 3.6 E9/L Invalid Interpretation Code [facility] Comment on above: Performed By: #### 2 [id number] #### [facility] [address] [place] [address] Nucleated cells (Bld) [#/Vol] 3.0 % High 0.0-0.0 [facility] Comment on above: Performed By: #### 2 [id number] #### [facility] [address] [place] [address] Platelet 300.0 E9/L Normal 150.0-500.0 [facility] Comment on above: Performed By: #### 2 [id number] #### [facility] [address] [place] [address]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 MD,PhD,PASQUALE Platelet mean volume (Bld) [Entitic vol] 8.7 fL Normal 7.5-12.5 [facility] Comment on above: Performed By: #### 6 399, 59009, 45016 #### [facility] of [address], [address] [place] [address] Deli Bakery Clerk: Samson Fowler MD #### [id number] #### [facility], [facility] [place] [address] Deli Bakery Clerk: Danyell Mcgrath MD,PhD,PASQUALE Platelets (Bld) [#/Vol] 307 10*3/uL Normal 140-400 [facility] Comment on above: Performed By: #### 6 399, 02569, 71414 #### [facility] of [address], [address] [place] [address] Deli Bakery Clerk: Samson Fowler MD #### [id number] #### [facility], [facility] [place] [address] Deli Bakery Clerk: Danyell Mcgrath MD,PhD,PASQUALE RBC (Bld) [#/Vol] 4.96 10*6/uL Normal 3.80-5.10 [facility] Comment on above: Performed By: #### 6 399, 59431, 92270 #### [facility] of [address], [address] [place] [address] Deli Bakery Clerk: Samson Fowler MD #### [id number] #### [facility], [address] [place] [address] Deli Bakery Clerk: Danyell Mcgrath MD,PhD,PASQUALE WBC (Bld) [#/Vol] 14.9 10*3/uL High 3.8-10.8 [facility] Comment on above: Performed By: #### 6 399, 73303, 83723 #### [facility] of [address], [address] [place] [address] Deli Bakery Clerk: Samson Fowler MD #### [id number] #### [facility], [address] [place], [place] [address] Deli Bakery Clerk: Danyell Mcgrath MD,PhD,P[place]QU[place] HEPATIC FUNCTION PANELon Albumin [Mass/Vol] 3.9 g/dL Normal 3.6-5.1 [facility] Comment on above: Order Comment: FASTI NG:NO FASTING: NO Performed By: #### 6 399, 80277, 23773 #### [facility] [address], [address] [place] [address] Deli Bakery Clerk: Samson Fowler MD #### [id number] #### [facility], [address] [place] [address] Deli Bakery Clerk: Danyell Mcgrath MD,PhD,PASQUALE Albumin/Globulin [Mass ratio] 1.4 {ratio} Normal 1.0-2.5 [facility] Comment on above: Order Comment: FASTI NG:NO FASTING: NO Performed By: #### 6 399, 14044, 01002 #### [facility] [address], [address] [place] [address] Deli Bakery Clerk: Samson Fowler MD #### [id number] #### [facility], [address] [place] [address] Deli Bakery Clerk: Danyell Mcgrath MD,PhD,PASQUALE ALP [Catalytic activity/Vol] 116 U/L Normal 31-125 [facility] Comment on above: Order Comment: FASTI NG:NO FASTING: NO Performed By: #### 6 399, 10697, 08298 #### [facility] [address], [address] [place] [address] Deli Bakery Clerk: Samson Fowler MD #### [id number] #### [facility], [address] [place] [address] Deli Bakery Clerk: Danyell Mcgrath MD,PhD,PASQUALE ALT [Catalytic activity/Vol] 25 U/L Normal 6-29 [facility] Comment on above: Order Comment: FASTI NG:NO FASTING: NO Performed By: #### 6 399, 58128, 17593 #### [facility] [address], [address] [place] [address] Deli Bakery Clerk: Samson Fowler MD #### [id number] #### [facility], [facility] [place] [address] Deli Bakery Clerk: Danyell Mcgrath MD,PhD,PASQUALE AST [Catalytic activity/Vol] 15 U/L Normal 10-30 [facility] Comment on above: Order Comment: FASTI NG:NO FASTING: NO Performed By: #### 6 399, 73980, 21543 #### [facility] [address], [address] [place] [address] Deli Bakery Clerk: Samson Fowler MD #### [id number] #### [facility], [address] [place] [address] Deli Bakery Clerk: Danyell Mcgrath MD,PhD,PASQUALE Bilirubin [Mass/Vol] 0.2 mg/dL Normal 0.2-1.2 [facility] Comment on above: Order Comment: FASTI NG:NO FASTING: NO Performed By: #### 6 399, 97516, 25852 #### [facility] [address], [address] [place] [address] Deli Bakery Clerk: Samson Fowler MD #### [id number] #### [facility], [address] [place] [address] Deli Bakery Clerk: Danyell Mcgrath MD,PhD,P[place]QUALE BILIRUBIN, INDIRECT 0.2 mg/dL (calc) Normal 0.2-1.2 [facility] Comment on above: Order Comment: FASTI NG:NO FASTING: NO Performed By: #### 6 399, 98861, 90549 #### [facility] [address], [address] [place] [address] Deli Bakery Clerk: Samson Fowler MD #### [id number] #### [facility], [address] [place] [address] Deli Bakery Clerk: Danyell Mcgrath MD,PhD,PASQUALE Bilirubin.indirect [Mass/Vol] 0.0 mg/dL Normal < OR = 0.2 [facility] Comment on above: Order Comment: FASTI NG:NO FASTING: NO Performed By: #### 6 399, 57882, 59549 #### [facility] [address], [address] [place] [address] Deli Bakery Clerk: Samson Fowler MD #### [id number] #### [facility], [address] [address] Deli Bakery Clerk: Danyell Mcgrath MD,PhD,PASQUALE Globulin (S) [Mass/Vol] 2.8 g/dL Normal 1.9-3.7 [facility] Comment on above: Order Comment: FASTI NG:NO FASTING: NO Performed By: #### 6 399, 31279, 31129 #### [facility] [address], [address] [place] [address] Deli Bakery Clerk: Samson Fowler MD #### [id number] #### [facility], [address] [place] [address] Deli Bakery Clerk: Danyell Mcgrath MD,PhD,PASQUALE Protein [Mass/Vol] 6.7 g/dL Normal 6.1-8.1 [facility] Comment on above: Order Comment: FASTI NG:NO FASTING: NO Performed By: #### 6 399, 05647, 47970 #### [facility] [address], [address] [place] [address] Deli Bakery Clerk: Samson Fowler MD #### [id number] #### [facility], [address] [place] [address] Deli Bakery Clerk: Danyell Mcgrath MD,PhD,PASQUALE STRATIFY JCV(R) DxSELECT AB (W/INDEX)W/RFL INHIBon 10-30-2024 INDEX VALUE 0.16 index Normal [facility] Comment on above: Performed By: #### 6 399, 39700, 94195 #### [facility] [address], [address] [place] [address] Deli Bakery Clerk: Samson Fowler MD #### [id number] #### [facility], [address] [place] [address] Deli Bakery Clerk: Danyell Mcgrath MD,PhD,PASQUALE JCV ANTIBODY Negative Normal [facility] Comment on above: Result Comment: Index interpretive criteria: <0.20 negative 0.20-0.40 indeterminate >0.40 positive INTERPRETATION Negative: Antibodies to JCV not detected. Indeterminate: Low level reactivity detected, see Inhibition Assay result below for the final antibody result. 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.(1) (1) TYSABRI(natalizumab)US Prescribing Information Performed By: #### 6 399, 20967, 15018 #### [facility] [address], [address] [place] [address] Deli Bakery Clerk: Samson Fowler MD #### [id number] #### [facility], [address] [place] [address] Deli Bakery Clerk: Danyell Mcgrath MD,PhD,PASQUALE VITAMIN D,25-OH,TOTAL,IAon 0 10-30-2024 VITAMIN D,25-OH,TOTAL,IA 56 ng/mL Normal 30-100 [facility] Comment on above: Result Comment: Radha min D Status 25-OH Vitamin D: Deficiency: <20 ng/mL Insufficiency: 20 - 29 ng/mL Optimal: > or = 30 ng/mL For 25-OH Vitamin D testing on patients on D2-supplementation and patients for whom quantitation of D2 and D3 fractions is required, the [facility](TM) 25-OH VIT D, (D2,D3), LC/MS/MS is recommended: order code 29218 (patients >2yrs). See Note 1 Note 1 For additional information, please refer to http://education.Widemile.rumr/faq/UZB154 (This link is being provided for informational/ educational purposes only.) Performed By: #### 6 399, 74809, 50283 #### [facility] [address], [address] [place] [address] Deli Bakery Clerk: Samson Fowler MD #### [id number] #### [facility], [address] [place] [address] Deli Bakery Clerk: Danyell Mcgrath MD,PhD,PASQUALE CBC Auto Differentialon 10-07 Basophils (Bld) [#/Vol] 75 10*3/uL [facility] Basophils/100 WBC (Bld) 0.5 % [facility] Eosinophils (Bld) [#/Vol] 328 10*3/uL [facility] Eosinophils/100 WBC (Bld) 2.2 % [facility] Erythrocyte distribution width (RBC) [Ratio] 14.9 % 11.0 - 15.0 % [facility] Hematocrit (Bld) [Volume fraction] 41.6 % 35.0 - 45.0 % [facility] Hemoglobin (Bld) [Mass/Vol] 13.4 g/dL 11.7 - 15.5 g/dL [facility] Interpretation and review of laboratory results Abnormal [facility] Lymphocytes (Bld) [#/Vol] 7942 10*3/uL High [facility] Lymphocytes/100 WBC (Bld) 53.3 % [facility] MCH (RBC) [Entitic mass] 27 pg 27.0 - 33.0 pg [facility] MCHC (RBC) [Mass/Vol] 32.2 g/dL 32.0 - 36.0 g/dL [facility] Comment on above: For adults, a slight decrease in the calculated MCHC value (in the range of 30 to 32 g/dL) is most likely not clinically significant; however, it should be interpreted with caution in correlation with other red cell parameters and the patient's clinical condition. MCV (RBC) [Entitic vol] 83.9 fL 80.0 - 100.0 fL [facility] Monocytes (Bld) [#/Vol] 879 10*3/uL [facility] Monocytes/100 WBC (Bld) 5.9 % [facility] Neutrophils (Bld) [#/Vol] 5677 10*3/uL [facility] Neutrophils/100 WBC (Bld) 38.1 % [facility] Platelet mean volume (Bld) [Entitic vol] 8.7 fL 7.5 - 12.5 fL [facility] Platelets (Bld) [#/Vol] 307 10*3/uL [facility] RBC (Bld) [#/Vol] 4.96 10*6/uL [facility] [place] [facility] Service comment (Unsp spec) [Interp] [facility] Comment on above: Review of peripheral smear confirms automated results. WBC (Bld) [#/Vol] 14.9 10*3/uL [facility] Hepatic function 2000 panelo n 10-25-2024 Albumin [Mass/Vol] 3.9 g/dL 3.6 - 5.1 g/dL [facility] Albumin/Globulin [Mass ratio] 1.4 {ratio} [facility] ALP [Catalytic activity/Vol] 116 U/L 31 - 125 U/L [facility] ALT [Catalytic activity/Vol] 25 U/L 6 - 29 U/L [facility] AST [Catalytic activity/Vol] 15 U/L 10 - 30 U/L [facility] Bilirubin [Mass/Vol] 0.2 mg/dL 0.2 - 1.2 mg/dL [facility] Bilirubin.direct [Mass/Vol] 0 mg/dL < OR = 0.2 [facility] Bilirubin.indirect [Mass/Vol] 0.2 mg/dL [facility] Globulin (S) [Mass/Vol] 2.8 g/dL [facility] Protein [Mass/Vol] 6.7 g/dL 6.1 - 8.1 g/dL [facility] FASTING:NO FASTING: NO [facility] No Panel Informationon 10-25 FASTING:NO FASTING: NO [employer] [facility] Vitamin D, Total, 25-OHon 25-hydroxyvitamin D [Mass/Vol] 56 ng/mL 30 - 100 ng/mL [facility] Comment on above: Vitamin D Status 25- [place] Vitamin D: Deficiency: <20 ng/mL Insufficiency: 20 - 29 ng/mL Optimal: > or = 30 ng/mL For 25-OH Vitamin D testing on patients on D2-supplementation and patients for whom quantitation of D2 and D3 fractions is required, the [facility](TM) 25-OH VIT D, (D2,D3), LC/MS/MS is recommended: order code 13204 (patients >2yrs). See Note 1 Note 1 For additional information, please refer to http://education.WorkCast/faq/KMP809 (This link is being provided for informational/ educational purposes only.) CBC WITH AUTO DIFFERENTIALon 10-24-2024 AUTO NRBC 0.5 % Normal [facility] Comment on above: Performed By: #### L [id number] #### [facility] [address] [place], [place] [address] Shane Wiggins M.D. [id number] AUTO NRBC ABS COUNT 0.07 K/mcL High 0.00-0.00 [facility] Comment on above: Performed By: #### L [id number] #### [facility] [address] [place], [place] [address] Shane Wiggins M.D. [id number] Erythrocyte distribution width (RBC) [Ratio] 15.3 % High 11.6-14.8 [facility] Comment on above: Performed By: #### Jaye [id number] #### [facility] [address] [place] [address] Shane Wiggins M.D. [id number] Hematocrit (Bld) [Volume fraction] 39.2 % Normal 36.0-46.0 [facility] Comment on above: Performed By: #### Jaye [id number] #### [facility] [address] [place] [address] Shane Wiggins M.D. [id number] Hemoglobin (Bld) [Mass/Vol] 12.7 g/dL Normal 12.0-16.0 [facility] Comment on above: Performed By: #### Jaye [id number] #### [facility] [address] [place] [address] Shane Wiggins M.D. [id number] MCH (RBC) [Entitic mass] 26.9 pg Normal 26.0-34.0 [facility] Comment on above: Performed By: #### Jaye [id number] #### [facility] [address] [place] [address] Shane Wiggins M.D. [id number] MCV (RBC) [Entitic vol] 83.1 fL Normal 80.0-100.0 [facility] Comment on above: Performed By: #### Jaye [id number] #### [facility] [address] [place] [address] Shane Wiggins M.D. [id number] MEAN CORPUSCULAR HEMOGLOBIN CONC 32.4 g/dL Normal 31.0-37.0 [facility] Comment on above: Performed By: #### L [id number] #### [facility] [address] [place] [address] Shane Wiggins M.D. [id number] Platelet mean volume (Bld) [Entitic vol] 8.4 fL Low 9.4-12.4 [facility] Comment on above: Performed By: #### L [id number] #### [facility] [address] [place], [place] [address] Shane Wiggins M.D. [id number] Platelets (Bld) [#/Vol] 260 10*3/uL Normal 150-400 [facility] Comment on above: Performed By: #### L [id number] #### [facility] [address] [place] [address] Shane Wiggins M.D. [id number] RBC (Bld) [#/Vol] 4.72 10*6/uL Normal 4.00-5.20 [facility] Comment on above: Performed By: #### L [id number] #### [facility] [address] [place], [place] [address] Shane Wiggins M.D. [id number] WBC (Bld) [#/Vol] 15.14 10*3/uL High 4.50-11.00 [facility] Comment on above: Performed By: #### L [id number] #### [facility] [address] [place] [address] Shane Wiggins M.D. [id number] CHEM 10-24-2024 Anion gap [Moles/Vol] 16 mmol/L Normal 10-20 [facility] Comment on above: Order Comment: [facility] [place] [facility] has implemented the eGFR calculation approach that does not have a coefficient for race that conforms to the NKF-ASN Task Force Recommendations. Performed By: #### 4 6953 ####[facility] [address] [place], [place] [address] Shane Wiggins M.D. [id number] Chloride [Moles/Vol] 106 mmol/L Normal 98-108 [facility] Comment on above: Order Comment: [facility] [place] [facility] has implemented the eGFR calculation approach that does not have a coefficient for race that conforms to the NKF-ASN Task Force Recommendations. Performed By: #### 4 6953 ####[facility] [address] [place] [address] Shane Wiggins M.D. [id number] Creatinine [Mass/Vol] 0.65 mg/dL Normal 0.40-1.10 [facility] Comment on above: Order Comment: [facility] [place] [facility] has implemented the eGFR calculation approach that does not have a coefficient for race that conforms to the NKF-ASN Task Force Recommendations. Performed By: #### 4 6953 ####[facility] [address] [place] [address] Shane Wiggins M.D. [id number] EGFR 113 mL/min/1.73 m2 Normal >=60 [facility] Comment on above: Order Comment: [facility] [place] [facility] has implemented the eGFR calculation approach that does not have a coefficient for race that conforms to the NKF-ASN Task Force Recommendations. Result Comment: Grazyna mated GFR was calculated using the 2020 CKD-EPI creatinine equation. Performed By: #### 4 [id number] ####[facility] [address] [place] [address] Shane Wiggins M.D. [id number] Glucose [Mass/Vol] 95 mg/dL Normal 65-99 [facility] Comment on above: Order Comment: [facility] has implemented the eGFR calculation approach that does not have a coefficient for race that conforms to the NKF-ASN Task Force Recommendations. Performed By: #### 4 [id number] ####[facility] [address] [place] [address] Shane Wiggins M.D. [id number] HCO3 (Bld) [Moles/Vol] 25 mmol/L Normal 21-32 [facility] Comment on above: Order Comment: [facility] has implemented the eGFR calculation approach that does not have a coefficient for race that conforms to the NKF-ASN Task Force Recommendations. Performed By: #### 4 [id number] ####[facility] [address] [place] [address] Shane Wiggins M.D. [id number] Potassium [Moles/Vol] 4.3 mmol/L Normal 3.5-5.1 [facility] Comment on above: Order Comment: [facility] has implemented the eGFR calculation approach that does not have a coefficient for race that conforms to the NKF-ASN Task Force Recommendations. Performed By: #### 4 [id number] ####[facility] [address] [place] [address]94[address] Shane Wiggins M.D. [id number] Sodium [Moles/Vol] 143 mmol/L Normal 135-145 [facility] Comment on above: Order Comment: [facility] has implemented the eGFR calculation approach that does not have a coefficient for race that conforms to the NKF-ASN Task Force Recommendations. Performed By: #### 4 [id number] ####[facility] [address] [place] [address] Shane Wiggins M.D. [id number] Urea nitrogen [Mass/Vol] 10 mg/dL Normal 8-25 [facility] Comment on above: Order Comment: [facility] has implemented the eGFR calculation approach that does not have a coefficient for race that conforms to the NKF-ASN Task Force Recommendations. Performed By: #### 4 [id number] ####[facility] [address] [place] [address] Shane Wiggins M.D. [id number] Urea nitrogen/Creatinine [Mass ratio] 15.4 mg/mg Normal 10.0-20.0 [facility] Comment on above: Order Comment: [facility] has implemented the eGFR calculation approach that does not have a coefficient for race that conforms to the NKF-ASN Task Force Recommendations. Performed By: #### 4 [id number] ####[facility] [address] [address] Shane Wiggins M.D. [id number] ED Prov Noteon 10-24-2024 ED Prov Note EMERGENCY MEDICINE PROVIDER NOTE [facility] Encounter Date: 10/24/24 History of Presenting Illness 44 y.o. female presenting with concerns for seizure. Patient has history of seizure disorder for which patient takes Keppra. Patient was at her neurologist office today when he noted that she had a seizure that lasted for approximately 15 minutes. When the seizure continued he did give Ativan. He is at the bedside and provides a history. There was no head trauma. Patient is postictal and I am unable to obtain a history from the patient. Medical Decision Making I saw and evaluated the patient. I have reviewed the chief complaint, triage note, past medical/surgical, family, and social history. Keppra level slightly hypertherapeutic the patient was receiving a Keppra infusion. Blood testing unremarkable including sodium of 144. At this point patient is appropriate discharge home. The plan per the neurologist who follows her for her seizures is to have the patient take Keppra 1500 mg in the morning and 1500 mg in the evening. Call tomorrow for a close follow-up appointment. IMPRESSION: No diagnosis found. Differential Diagnosis: Seizure, hyponatremia Discussed with: Specialist. Discussed case with patient's neurologist Reviewed information from: Prior external provider note/hospital record and Prior labs and imaging. Disposition: Discharge MDM Data: Discussed with consultants/staff, Shared decision making utilized, and Social Determinants of Health Impacted Treatment/Disposition Shared decision making utilized by explaining the results and plan of care for disposition and next steps of care with the patient and/or family. Potential impact of patient's medical/surgical comorbidities were assessed and considered when determining the treatment course and outcome. Discussed options for treatment with or without prescription medications Social determinants of health include access to care and transportation to care. Patient has been provided referrals. Resources given to assure patient has adequate transportation to receive medical care. Community resources given. Physical Exam Vital signs reviewed BP 132/84 (BP Location: Left arm, Patient Position: Lying) Pulse (!) 114 Temp 98.5 degrees F (36.9 degrees C) (Oral) Resp 16 SpO2 99% Constitutional: Well-appearing nontoxic HEENT: No meningismus Eyes: Pupils equal round reactive to light bilaterally, extraocular movements intact Pulmonary: Lungs clear to auscultation in all lung tamayo. Cardiovascular. Regular rate and rhythm, no murmur. Abdominal exam: Soft nontender abdomen with normal bowel sounds Musculoskeletal: No edema no gross deformities in the extremities Skin: Warm and dry Neuro exam: Alert and oriented x3. GCS 15 Clinical Results No orders to display Labs Reviewed POC VBG LAB(EPOC) - RALS - Abnormal; Notable for the following components: Result Value pH, Venous 7.50 (*) pO2, Mayur 64 (*) Base Excess, Mayur 10.2 (*) O2 Sat, Mayur 93.5 (*) Chloride 109 (*) TCO2 34 (*) All other components within normal limits Narrative: [facility] has implemented the eGFR calculation approach that does not have a coefficient for race that conforms to the NKF-ASN Task Force Recommendations. CBC WITH AUTO DIFFERENTIAL - Abnormal; Notable for the following components: WBC 15.14 (*) RDW - CV 15.3 (*) MPV 8.4 (*) All other components within normal limits OBTAIN VENOUS BLOOD GASES AND PERFORM CBC AND DIFFERENTIAL Narrative: The following orders were created for panel order CBC w/ Diff. Procedure Abnormality Status --------- ------ CBC Auto Differential[[id number]] Abnormal Preliminary result Please view results for these tests on the individual orders. CHEM 7 LEVETIRACETAM LEVEL Laboratory and imaging results have been independently reviewed by me. Past History Nursing triage notes/past medical, social, and family hx reviewed by me and I agree except where documented above. FHx reviewed and not pertinent to presenting illness Social History Tobacco Use Smoking status: Never Smokeless tobacco: Never Vaping Use Vaping status: Never Used Substance Use Topics Alcohol use: Yes Alcohol/week: 4.0 standard drinks of alcohol Types: 2 Glasses of wine, 2 Shots of liquor per week Comment: rarely, Drug use: Never Past Medical History: Diagnosis Date Anxiety Cancer (HCC) 07/14/2003 Deep vein thrombosis (HCC) 2007 Diabetes (HCC) Fatty liver GERD (gastroesophageal reflux disease) Migraine Multiple sclerosis (HCC) Neuropathic pain Peripheral neuropathy Pseudoseizure PTSD (post-traumatic stress disorder) Stroke (HCC) 03/22 Syncope Past Surgical History: Procedure Laterality Date CARPAL TUNNEL RELEASE 2016 SECTION, LOW TRANSVERSE CHOLECYSTECTOMY CV IR INTERVENTIONAL RADIOLOGY (more content not included)... Normal [facility] LEVETIRACETAM LEVELon 2024 levETIRAcetam [Mass/Vol] 95.0 ug/mL High 6.0-46.0 [facility] Comment on above: Performed By: #### 4 [id number] #### [facility] [address] [place] [address] Shane Wiggins M.D. [id number] MANUAL DIFFERENTIALon 2024 BANDS - REL (DIFF) 3.0 % [facility] Comment on above: Performed By: #### 4 [id number] ####[facility] [address] [place] [address] Shane Wiggins M.D. [id number] BASOPHILS - ABS (DIFF) 0.00 K/mcL Normal 0.00-0.30 [facility] Comment on above: Performed By: #### 4 [id number] ####[facility] [address] [place] [address] Shane Wiggins M.D. [id number] BASOPHILS - REL (DIFF) 0.0 % [facility] Comment on above: Performed By: #### 4 [id number] ####[facility] [address] [place], [place] [id number] Shane Wiggins M.D. [id number] EOSINOPHILS - ABS (DIFF) 0.00 K/mcL Normal 0.00-0.50 [facility] Comment on above: Performed By: #### 4 [id number] ####[facility] [address] [place] [address] Shane Wiggins M.D. [id number] EOSINOPHILS - REL (DIFF) 0.0 % [facility] Comment on above: Performed By: #### 4 [id number] ####[facility] [address] [place] [address] Shane Wiggins M.D. [id number] LYMPHOCYTE ATYPICAL - REL (DIFF) 1.0 % Normal [facility] Comment on above: Performed By: #### 4 [id number] ####[facility] [address] [place] [address] Shane Wiggins M.D. [id number] LYMPHOCYTES - ABS (DIFF) 9.24 K/mcL High 0.90-4.00 [facility] Comment on above: Performed By: #### 4 [id number] ####[facility] [address] [place] [address] Shane Wiggins M.D. [id number] LYMPHOCYTES - REL (DIFF) 60.0 % Normal [facility] Comment on above: Performed By: #### 4 [id number] ####[facility] [address] [place] [address] Shane Wiggins M.D. [id number] MONOCYTES - ABS (DIFF) 1.51 K/mcL High 0.30-0.90 [facility] Comment on above: Performed By: #### 4 [id number] ####[facility] [address] [place] [address] Shane Wiggins M.D. [id number] MONOCYTES - REL (DIFF) 10.0 % Normal [facility] Comment on above: Performed By: #### 4 [id number] ####[facility] [address] [place] [address] Shane Wiggins M.D. [id number] NEUTROPHILS - ABS (DIFF) 4.39 K/mcL Normal 1.70-7.00 [facility] Comment on above: Performed By: #### 4 [id number] ####[facility] [address] [place] [address] Shane Wiggins M.D. [id number] NEUTROPHILS - REL (DIFF) 26.0 % Normal [facility] Comment on above: Performed By: #### 4 [id number] ####[facility] [address] [place] [address] Shane Wiggins M.D. [id number] MORPHOLOGYon 10-24-2024 PLATELET ESTIMATE Normal Normal Normal [facility] Comment on above: Performed By: #### L [id number] #### [facility] [address] [place] [address] Shane Wiggins M.D. [id number] RBC MORPH SCAN Normal Normal [facility] Comment on above: Result Comment: RBC Indices confirmed with manual peripheral smear review. Performed By: #### L [id number] #### [facility] [address] [place], [place] [address] Shane Wiggins M.D. [id number] POC VBG LAB([facility]) - RALSon 0 10-24-2024 BASE EXCESS, VENOUS 10.2 High -2.0-2.0 [facility] Comment on above: Order Comment: [facility] has implemented the eGFR calculation approach that does not have a coefficient for race that conforms to the NKF-ASN Task Force Recommendations. Performed By: #### P [id number] #### [facility] [address] [place] [address] Shane Wiggins M.D. [id number] CALCIUM IONIZED 4.8 mg/dL Normal 4.5-5.3 [facility] Comment on above: Order Comment: [facility] has implemented the eGFR calculation approach that does not have a coefficient for race that conforms to the NKF-ASN Task Force Recommendations. Performed By: #### P [id number] #### [facility] [address] [place] [address] Shane Wiggins M.D. [id number] Chloride [Moles/Vol] 109 mmol/L High 98-108 [facility] Comment on above: Order Comment: [facility] has implemented the eGFR calculation approach that does not have a coefficient for race that conforms to the NKF-ASN Task Force Recommendations. Performed By: #### P [id number] #### [facility] [address] [place] [address] Shane Wiggins M.D. [id number] CO2 [Moles/Vol] 34 mmol/L High 21-32 [facility] Comment on above: Order Comment: [facility] has implemented the eGFR calculation approach that does not have a coefficient for race that conforms to the NKF-ASN Task Force Recommendations. Performed By: #### P [id number] #### [facility] [address] [place] [address] Shane Wiggins M.D. [id number] Creatinine [Mass/Vol] 0.58 mg/dL Normal 0.40-1.10 [facility] Comment on above: Order Comment: [facility] has implemented the eGFR calculation approach that does not have a coefficient for race that conforms to the NKF-ASN Task Force Recommendations. Performed By: #### P [id number] #### [facility] [address] [place] [address] Shane Wiggins M.D. [id number] Glucose [Mass/Vol] 99 mg/dL Normal 65-99 [facility] Comment on above: Order Comment: [facility] has implemented the eGFR calculation approach that does not have a coefficient for race that conforms to the NKF-ASN Task Force Recommendations. Performed By: #### P [id number] #### [facility] [address] [place] [address] Shane Wiggins M.D. [id number] Hematocrit (Bld) [Volume fraction] 39 % Normal 36-46 [facility] Comment on above: Order Comment: [facility] has implemented the eGFR calculation approach that does not have a coefficient for race that conforms to the NKF-ASN Task Force Recommendations. Performed By: #### P [id number] #### [facility] [address] [place] [address] Shane Wiggins M.D. [id number] HEMOGLOBIN, CALCULATED 13.4 g/dL Normal 12.0-16.0 [facility] Comment on above: Order Comment: [facility] has implemented the eGFR calculation approach that does not have a coefficient for race that conforms to the NKF-ASN Task Force Recommendations. Performed By: #### P [id number] #### [facility] [address] [place], [place] [address] Shane Wiggins M.D. [id number] Oxygen saturation in Blood 93.5 % High 40.0-70.0 [facility] Comment on above: Order Comment: [facility] has implemented the eGFR calculation approach that does not have a coefficient for race that conforms to the NKF-ASN Task Force Recommendations. Performed By: #### P [id number] #### [facility] [address] [place] [address] Shane Wiggins M.D. [id number] PCO2 VENOUS 44.8 mm Hg Normal 41.0-51.0 [facility] Comment on above: Order Comment: [facility] has implemented the eGFR calculation approach that does not have a coefficient for race that conforms to the NKF-ASN Task Force Recommendations. Performed By: #### P [id number] #### [facility] [address] [place] [address] Shane Wiggins M.D. [id number] PH VENOUS 7.50 High 7.32-7.42 [facility] Comment on above: Order Comment: [facility] has implemented the eGFR calculation approach that does not have a coefficient for race that conforms to the NKF-ASN Task Force Recommendations. Performed By: #### P [id number] #### [facility] [address] [place] [address] Shane Wiggins M.D. [id number] PO2 VENOUS 64 mm Hg High 25-40 [facility] Comment on above: Order Comment: [facility] has implemented the eGFR calculation approach that does not have a coefficient for race that conforms to the NKF-ASN Task Force Recommendations. Performed By: #### P [id number] #### [facility] [address] [place] [address] 828[address] Shane Wiggins M.D. [id number] POC GFR 116 mL/min/1.73 m2 Normal >=60 [facility] Comment on above: Order Comment: [facility] has implemented the eGFR calculation approach that does not have a coefficient for race that conforms to the NKF-ASN Task Force Recommendations. Result Comment: Grazyna mated GFR was calculated using the 2020 CKD-EPI creatinine equation. Performed By: #### P [id number] #### [facility] [address] [place] [address] Shane Wiggins M.D. [id number] POC LACTATE 1.7 mmol/L Normal 0.6-2.0 [facility] Comment on above: Order Comment: [facility] has implemented the eGFR calculation approach that does not have a coefficient for race that conforms to the NKF-ASN Task Force Recommendations. Performed By: #### P [id number] #### [facility] [address] [place] [address] Shane Wiggins M.D. [id number] Potassium [Moles/Vol] 4.2 mmol/L Normal 3.5-5.1 [facility] Comment on above: Order Comment: [facility] has implemented the eGFR calculation approach that does not have a coefficient for race that conforms to the NKF-ASN Task Force Recommendations. Performed By: #### P [id number] #### [facility] [address] [place] [address] Shane Wiggins M.D. [id number] Sodium [Moles/Vol] 144 mmol/L Normal 135-145 [facility] Comment on above: Order Comment: [facility] has implemented the eGFR calculation approach that does not have a coefficient for race that conforms to the NKF-ASN Task Force Recommendations. Performed By: #### P [id number] #### [facility] [address] [place] [address] Shane Wiggins M.D. [id number] Urea nitrogen [Mass/Vol] 10 mg/dL Normal 8-25 [facility] Comment on above: Order Comment: [facility] has implemented the eGFR calculation approach that does not have a coefficient for race that conforms to the NKF-ASN Task Force Recommendations. Performed By: #### P [id number] #### [facility] [address] [place] [address] Shane Wiggins M.D. [id number] Ambulatory Visit Summaryon 0 10-17-2024 Ambulatory Visit Summary Ambulatory Visit Summary ODESSA IRELAND :1980 Visit Date:10/17/2024 Ambulatory Visit Instructions Your Diagnosis Obesity, morbid, BMI 40.0-49.9 BMI 40.0-44.9, adult Nonsmoker MS (multiple sclerosis) Your Care Team Attending Physician - Rex Hamm MD. Primary Care Physician - Rex Hamm MD. This Is Your Medications List Misc Prescription (BACLOFEN 10 MG TABLET) Non-Formulary Medication amitriptyline (amitriptyline 150 mg Tab) aripiprazole (aripiprazole 5 mg Tab) atorvastatin (atorvastatin 40 mg Tab) biotin (biotin 5000 mcg oral capsule) cholecalciferol (Vitamin D3 1000 intl units (25 mcg) Tab) cyanocobalamin (Vitamin B12 2500 mcg sublingual tablet) docusate (Colace) gabapentin (gabapentin 400 mg Cap) levetiracetam (levetiracetam 500 mg Tab) lorazepam (Ativan 0.5 mg Tab) metformin (metformin 500 mg Tab) modafinil (modafinil 100 mg Tab) multivitamin omeprazole (omeprazole 20 mg Cap-DR) semaglutide (Wegovy (1 mg dose) subcutaneous solution) sumatriptan (Imitrex 50 mg Tab) Procedures Performed [place] (10/15/2022), Total hysterectomy (10/17/2016), Partial hysterectomy (10/25/2015), Tonsillectomy (12/19/2012), Cholecystectomy (07/06/2008), delivery (05/23/2008), Tubal ligation (05/23/2008), delivery (07/02/2003), Carpal tunnel. Discharge Vitals Temperature (Tympanic) 36.4 ???C Heart Rate (Peripheral) 68 Respiratory Rate 18 Blood Pressure 122/78 Height 165 cm Height 65 in Weight 116.3 kg Weight 256.397 lb BMI 42.72 What to do next Scheduled Follow-Up Appointments Wednesday 10:00 AM EDT With: Hansel SOUZA, Rex Guerin Where: [address] [address] 2024 9:30 AM EDT With: Where: [address] [address]- Medications What How Much When Instructions Unchanged amitriptyline (amitriptyline 150 mg Tab) See instructions TAKE 1 TABLET BY MOUTH EVERY NIGHT AT BEDTIME Unchanged aripiprazole (aripiprazole 5 mg Tab) 1 Tablets By Mouth Every day Unchanged atorvastatin (atorvastatin 40 mg Tab) See instructions TAKE 1 TABLET BY MOUTH DAILY Unchanged biotin (biotin 5000 mcg oral capsule) See instructions 2 caps every morning Unchanged cholecalciferol (Vitamin D3 1000 intl units (25 mcg) Tab) 1 Tablets By Mouth Every day Unchanged cyanocobalamin (Vitamin B12 2500 mcg sublingual tablet) Unchanged docusate (Colace) Unchanged gabapentin (gabapentin 400 mg Cap) See instructions 2 cap(s) in the AM, 1 cap at noon, 2 caps in the PM Unchanged levetiracetam (levetiracetam 500 mg Tab) 2 Tablets By Mouth 2 times a day Unchanged lorazepam (Ativan 0.5 mg Tab) 1 Tablets By Mouth Every day as needed for as needed for anxiety Unchanged metformin (metformin 500 mg Tab) See instructions take 1 tablet by mouth twice a day Unchanged Misc Prescription (BACLOFEN 10 MG TABLET) take 1 TO 2 tablet by mouth three times a day Unchanged modafinil (modafinil 100 mg Tab) 1 Tablets By Mouth Once a day (in the morning) Unchanged multivitamin Unchanged Non-Formulary Medication Tysabri Infusion every 28 days Unchanged omeprazole (omeprazole 20 mg Cap-DR) See instructions take 1 capsule by mouth once daily Unchanged semaglutide (Wegovy (1 mg dose) subcutaneous solution) See instructions INJECT 1 MG UNDER THE SKIN ONCE WEEKLY Unchanged sumatriptan (Imitrex 50 mg Tab) See instructions Allergies codeine (Hallucinations) Problems Ongoing - Any problem that you are currently receiving treatment for. Acute URI Anxiety BMI 40.0-44.9, adult Diastolic dysfunction Excessive dietary caloric intake Headache History of cerebrovascular accident without residual deficits Hx of stroke without residual deficits Immunodeficiency due to drugs Major depressive disorder, recurrent, in full remission Neuropathy Nonsmoker Obesity, morbid, BMI 40.0-49.9 PTSD (post-traumatic stress disorder) Raynauds disease Right ankle sprain Sinus tachycardia Syncope Type 2 diabetes mellitus Type 2 diabetes mellitus with diabetic neuropathy Patient Survey You may receive a survey via text or e-mail asking about your office visit. Please share your experience with us by completing your survey. We appreciate your feedback and thank you for choosing us for your care. Normal [facility] Family Medicine Office/Clini c Noteon 10-17-2024 Family Medicine Office/Clinic Note Family Medicine Office/Clinic Note Chief Complaint Weight Management The patient presents for weight loss monitoring. HPI Staff 3m weight management follow up Started on wegovy Increased dosage at time of last encounter Sleeping well:Yes, 6-8 hours Chest pain:No Tremors:No Headaches:No Heart fluttering:No Blurred Vision:No Starting Weight: 279.18lbs Weight last visit: 267lbs Weight this visit: 256lbs Believes she needs refill of Wegovy to [facility]. History of Present Illness The patient is a 44 year old female presenting with concerns regarding weight loss management. She is currently managing her weight loss through unspecified interventions, and there is a discussion about maintaining her current management program rather than increasing the dose of her current treatment approach, due to the positive progress in weight reduction. The patient reports no issues with sleep, mood, constipation, or reflux, indicating stability in her overall health status during the weight management process. Remarkable progress has been made with weight loss since the intervention began. Multiple sclerosis is noted as a historical condition; however, no specifics of symptoms or management have been discussed during this visit. The patient is a nonsmoker, highlighting an aspect of her medical history that is beneficial in terms of overall health maintenance. Review of Systems PHQ Score Initial Depression Screen Score: 2 SCORE Physical Exam Vitals & Measurements T: 36.4 ???C(Tympanic) HR: 68(Peripheral) RR: 18 BP: 122/78 SpO2: 99% HT: 65 in HT: 165 cm WT: 116.3 kg WT: 256.397 lb BMI: 42.72 General: alert, no acute distress ENMT: oral mucosa moist Cardiovascular: Regular rate and rhythm, normal peripheral perfusion Respiratory: Lungs clear to auscultation, respirations non labored Extremities: no deformity, no trauma Neurological: oriented x 4, level of consciousness appropriate for age, CN II-XII intact, motor strength equal & normal bilaterally, speech normal Abdomen: Soft, Non-tender, Non-distended, + Bowel sounds Assessment/Plan 1. Type 2 diabetes mellitus (E11.9: Type 2 diabetes mellitus without complications) Doing well. No issues. Monitor for low bs. 2. Obesity, morbid, BMI 40.0-49.9 (E66.01: Morbid (severe) obesity due to excess calories) Weight management through the current regimen is effective; hence, no adjustments are advised. Continue the current plan and monitor progress with periodic assessments. Encouragement and motivation are provided to maintain the momentum in weight reduction. 3. BMI 40.0-44.9, adult (Z68.41: Body mass index [BMI] 40.0-44.9, adult) The patient will continue with her current management program for weight loss, as it is yielding successful results. No changes in her approach are suggested at this time due to ongoing weight reduction. Regular monitoring and follow-up should be ensured to assess progress and any future needs for intervention modification. 4. Nonsmoker (Z78.9: Other specified health status) No intervention required; maintain nonsmoking status for optimal health benefits. Orders: azithromycin, 500 mg = 1 tab(s), Oral, Daily, # 3 tab(s), Refills(s) 0, Pharmacy: [facility] [id number], 165, cm, 07/18/24 10:03:00 EST, Height/Length Dosing, 121.5, kg, 07/18/24 10:03:00 EST, Weight Dosing semaglutide, 1 mg, SubCutaneous, qWeek, # 12 EA, Refills(s) 0, [facility] [id number], 165, cm, 10/17/24 10:07:00 EST, Height/Length Dosing, 116.3, kg, 10/17/24 10:07:00 EST, Weight Dosing 44 year old female with history of morbid obesity presenting with weight loss management. The patient has achieved notable success with weight loss and is considering maintaining her current management strategy due to continued weight reduction. The absence of issues with mood, sleep, constipation, or reflux suggests that the therapeutic regimen does not adversely affect these aspects of her health. The patient's history of multiple sclerosis is not discussed in detail this visit, and her status as a nonsmoker is beneficial. During the visit, I discussed the patient's progress in her weight loss journey. We reviewed her current dose of treatment, noting its effectiveness in the ongoing weight reduction. Therefore, we agreed to maintain the current management regimen rather than increasing the dose. I confirmed there are no issues with sleep, mood, constipation, or acid reflux, which indicates the treatment is well-tolerated. The patient was complimented on her phenomenal weight loss results and encouraged to continue with the current progress. Additionally, a routine examination for any new health issues will follow in subsequent visits. No immediate changes in management were deemed necessary at this visit. Follow-up No qualifying data available Problem List/Past Medical History Ongoing Acute URI Anxiety BMI 40.0-44.9, adult Diastolic dysfunction Excessive dietary caloric intake Headache (more content not included)... Normal [facility] Comment on above: Result Comment: Elec tronically Signed By: Hansel SOUZA, Rex Coronado.kirill\Date and Time Signed: 10/17/24 10:22 EST Ambulatory Visit Summaryon 1 09-17-2023 Ambulatory Visit Summary Ambulatory Visit Summary ODESSA IRELAND :1980 Visit Date:07/18/2024 Ambulatory Visit Instructions Your Diagnosis Excessive dietary caloric intake Acute URI BMI 40.0-44.9, adult Nonsmoker Obesity, morbid, BMI 40.0-49.9 Your Care Team Attending Physician - Rex Hamm MD Primary Care Physician - Rex Hamm MD This Is Your Medications List azithromycin (azithromycin 500 mg oral tablet) semaglutide (semaglutide 8 mg/3 mL (2 mg dose) subcutaneous solution) Contact prescribing physician if questions or concerns Misc Prescription (BACLOFEN 10 MG TABLET) Non-Formulary Medication amitriptyline (amitriptyline 150 mg Tab) aripiprazole (aripiprazole 5 mg Tab) atorvastatin (Lipitor 40 mg Tab) biotin (biotin 5000 mcg oral capsule) cholecalciferol (Vitamin D3 1000 intl units (25 mcg) Tab) cyanocobalamin (Vitamin B12 2500 mcg sublingual tablet) docusate (Colace) gabapentin (gabapentin 400 mg Cap) levetiracetam (levetiracetam 500 mg Tab) lorazepam (Ativan 0.5 mg Tab) metformin (metformin 500 mg Tab) modafinil (modafinil 100 mg Tab) multivitamin omeprazole (omeprazole 20 mg Cap-DR) sumatriptan (Imitrex 50 mg Tab) Procedures Performed Port (10/15/2022), Total hysterectomy (10/17/2016), Partial hysterectomy (10/25/2015), Tonsillectomy (12/19/2012), Cholecystectomy (07/06/2008), delivery (05/23/2008), Tubal ligation (05/23/2008), delivery (07/02/2003), Carpal tunnel. Discharge Vitals Temperature (Tympanic) 36.6 ???C Heart Rate (Peripheral) 100 Respiratory Rate 16 Blood Pressure 122/78 Height 165 cm Height 65 in Weight 121.5 kg Weight 267.861 lb BMI 44.63 What to do next Scheduled Follow-Up Appointments Wednesday 10:15 AM EST With: Rex Hamm MD Where: [address] [address]24 9:30 AM EDT With: Where: [address] [address]- Medications What How Much When Instructions New azithromycin (azithromycin 500 mg oral tablet) 1 Tablets By Mouth Every day Pickup at [facility] [id number] Changed semaglutide (semaglutide 8 mg/ 3 mL (2 mg dose) subcutaneous solution) 2 Milligram Subcutaneous Every week Pickup at [facility] [id number] Unchanged amitriptyline (amitriptyline 150 mg Tab) 1 Tablets By Mouth Once a day (at bedtime) Contact prescribing physician if questions or concerns Unchanged aripiprazole (aripiprazole 5 mg Tab) 1 Tablets By Mouth Every day Contact prescribing physician if questions or concerns Unchanged atorvastatin (Lipitor 40 mg Tab) 1 Tablets By Mouth Every day Contact prescribing physician if questions or concerns Unchanged biotin (biotin 5000 mcg oral capsule) See instructions 2 caps every morning Contact prescribing physician if questions or concerns Unchanged cholecalciferol (Vitamin D3 1000 intl units (25 mcg) Tab) 1 Tablets By Mouth Every day Contact prescribing physician if questions or concerns Unchanged cyanocobalamin (Vitamin B12 2500 mcg sublingual tablet) Contact prescribing physician if questions or concerns Unchanged docusate (Colace) Contact prescribing physician if questions or concerns Unchanged gabapentin (gabapentin 400 mg Cap) See instructions 2 cap(s) in the AM, 1 cap at noon, 2 caps in the PM Contact prescribing physician if questions or concerns Unchanged levetiracetam (levetiracetam 500 mg Tab) 2 Tablets By Mouth 2 times a day Contact prescribing physician if questions or concerns Unchanged lorazepam (Ativan 0.5 mg Tab) 1 Tablets By Mouth Every day as needed for as needed for anxiety Contact prescribing physician if questions or concerns Unchanged metformin (metformin 500 mg Tab) See instructions take 1 tablet by mouth twice a day Contact prescribing physician if questions or concerns Unchanged Misc Prescription (BACLOFEN 10 MG TABLET) take 1 TO 2 tablet by mouth three times a day Contact prescribing physician if questions or concerns Unchanged modafinil (modafinil 100 mg Tab) 1 Tablets By Mouth Once a day (in the morning) Contact prescribing physician if questions or concerns Unchanged multivitamin Contact prescribing physician if questions or concerns Unchanged Non-Formulary Medication Tysabri Infusion every 28 days Contact prescribing physician if questions or concerns Unchanged omeprazole (omeprazole 20 mg Cap-DR) See instructions take 1 capsule by mouth once daily Contact prescribing physician if questions or concerns Unchanged sumatriptan (Imitrex 50 mg Tab) See instructions Contact prescribing physician if questions or concerns Pharmacy Information [facility] [id number]: [address], [place] [id number] [phone] Allergies codeine (Hallucinations) Problems Ongoing - Any problem that you are currently receiving susy (more content not included)... Normal [facility] Family Medicine Office/Clini c Noteon 07-18-2024 Family Medicine Office/Clinic Note Family Medicine Office/Clinic Note Chief Complaint Weight Management HPI Staff Odessa is a 43 year old female presenting for 2 month follow up weight Weight management Medication increased at time of ERINN Sleeping well:Yes, 6-8 hours Chest pain:No Tremors:No Headaches:No Heart fluttering:No Blurred Vision:No Starting Weight: 279.18 Weight last visit: 270.16 Weight this visit: 267lbs questions/concerns: Does feel like she is getting sinus infection. History of Present Illness See staff HPI. Patient has had 3 days of nasal congestion. Patient has been taking Sudafed and ibuprofen. Patient has had little improvement. Patient states she has had no sick contacts. Patient has not tested for COVID. Review of Systems PHQ Score Initial Depression Screen Score: 2 SCORE Physical Exam Vitals & Measurements T: 36.6 ???C(Tympanic) HR: 100(Peripheral) RR: 16 BP: 122/78 SpO2: 95% HT: 65 in HT: 165 cm WT: 121.5 kg WT: 267.861 lb BMI: 44.63 General: alert, no acute distress ENMT: oral mucosa moist, Cardiovascular: regular rate and rhythm, normal peripheral perfusion Respiratory: Lungs CTA, respirations non labored Extremities: no deformity, no trauma Neurological: oriented x 4, LOC appropriate for age, CN II-XII intact, motor strength equal & normal bilaterally, speech normal Abdomen: Soft, Nontender, Non-distended, + BS Assessment/Plan 1. Excessive dietary caloric intake (R63.2: Polyphagia) Will increase the Wegovy. Will have the patient continue diet and exercise. Will see the patient back in 3 months. 2. Acute URI (J06.9: Acute upper respiratory infection, unspecified) Continue OTC medication. Pocket prescription of azithromycin given to the patient. Patient will take this if there is no improvement by the end of the week. 3. BMI 40.0-44.9, adult (Z68.41: Body mass index [BMI] 40.0-44.9, adult) BMI education added 4. Nonsmoker (Z78.9: Other specified health status) Diet and exercise advised 5. Obesity, morbid, BMI 40.0-49.9 (E66.01: Morbid (severe) obesity due to excess calories) Please continue medication as before. Orders: azithromycin, 500 mg = 1 tab(s), Oral, Daily, # 3 tab(s), Refills(s) 0, [facility] [id number], 165, cm, 07/18/24 10:03:00 EST, Height/Length Dosing, 121.5, kg, 07/18/24 10:03:00 EST, Weight Dosing semaglutide, 2 mg, SubCutaneous, qWeek, # 9 mL, Refills(s) 0, Pharmacy: [facility] [id number], 165, cm, 07/18/24 10:03:00 EST, Height/Length Dosing, 121.5, kg, 07/18/24 10:03:00 EST, Weight Dosing Follow-up No qualifying data available Problem List/Past Medical History Ongoing Acute URI Anxiety BMI 45.0-49.9, adult Diastolic dysfunction Excessive dietary caloric intake Headache History of cerebrovascular accident without residual deficits Hx of stroke without residual deficits Immunodeficiency due to drugs Major depressive disorder, recurrent, in full remission Morbidly obese MS (multiple sclerosis) Neuropathy Obesity, morbid, BMI 40.0-49.9 PTSD (post-traumatic stress disorder) Raynauds disease Right ankle sprain Sinus tachycardia Syncope Type 2 diabetes mellitus Type 2 diabetes mellitus with diabetic neuropathy Historical No qualifying data Procedure/Surgical History Port (10/15/2022), Total hysterectomy (10/17/2016), Partial hysterectomy (10/25/2015), Tonsillectomy (12/19/2012), Cholecystectomy (07/06/2008), delivery (05/23/2008), Tubal ligation (05/23/2008), delivery (07/02/2003), Carpal tunnel. Medications amitriptyline 150 mg Tab, 150 mg= 1 tab(s), Oral, Once a day (at bedtime), 1 refills aripiprazole 5 mg Tab, 5 mg= 1 tab(s), Oral, Daily Ativan 0.5 mg Tab, 0.5 mg= 1 tab(s), Oral, Daily, PRN azithromycin 500 mg oral tablet, 500 mg= 1 tab(s), Oral, Daily BACLOFEN 10 MG TABLET biotin 5000 mcg oral capsule, See Instructions Colace gabapentin 400 mg Cap, See Instructions Imitrex 50 mg Tab, See Instructions levetiracetam 500 mg Tab, 1000 mg= 2 tab(s), Oral, BID Lipitor 40 mg Tab, 40 mg= 1 tab(s), Oral, Daily, 1 refills metformin 500 mg Tab, See Instructions modafinil 100 mg Tab, 100 mg= 1 tab(s), Oral, qAM multivitamin Non-Formulary Medication omeprazole 20 mg Cap-DR, See Instructions, 1 refills semaglutide 8 mg/3 mL (2 mg dose) subcutaneous solution, 2 mg, SubCutaneous, qWeek Vitamin B12 2500 mcg sublingual tablet Vitamin D3 1000 intl units (25 mcg) Tab, 25 mcg= 1 tab(s), Oral, Daily Allergies codeine (Hallucinations) Social History Alcohol Current. Wine. 1-2 times per year., 07/18/2024 Employment/School - Not employed or in school, 06/18/2023 Home/Environment Lives with Significant other. Living situation: Home/Independent. Home equipment: Walker/Cane, BSC. Alcohol abuse in household: No. Substance abuse in household: No. Smoker in household: Yes. Injuries/Abuse/Neglect in household: No. Feels unsafe at home: No. Safe place to go: Yes. Concern for family members at home: (more content not included)... Normal [facility] Comment on above: Result Comment: Elec tronically Signed By: Hansel SOUZA, Rex Guerin\.br\Date and Time Signed: 07/18/24 10:20 EST Hepatic function 2000 panelo n 04-20-2024 Albumin [Mass/Vol] 4.3 g/dL 3.2 - 5.2 g/dL [facility] ALP [Catalytic activity/Vol] 135 U/L 40 - 150 U/L [facility] ALT [Catalytic activity/Vol] 32 U/L 0-35 U/L [facility] AST [Catalytic activity/Vol] 23 U/L 0-35 U/L [facility] Bilirubin [Mass/Vol] mg/dL 0.0 - 1.3 mg/dL [facility] Bilirubin.conjugate d [Mass/Vol] mg/dL 0.0 - 0.4 mg/dL [facility] Interpretation and review of laboratory results Normal [facility] Protein [Mass/Vol] 6.9 g/dL 6.0 - 8.0 g/dL [facility] - Hematology and Cell countson 04-20-2024 Amigo cells LM Ql (Bld) Few [facility] Platelets LM Ql (Bld) Normal Normal [facility] RBC morphology finding Nom (Bld) See Comment [facility] Comment on above: RBC Indices confirme d with manual peripheral smear review. Erythrocyte distribution width (RBC) [Entitic vol] 15.4 % High 11.6 - 14.8 % [facility] Hematocrit (Bld) [Volume fraction] 41.2 % 36.0 - 46.0 % [facility] Hemoglobin (Bld) [Mass/Vol] 13.1 g/dL 12.0 - 16.0 g/dL [facility] MCH (RBC) [Entitic mass] 26.3 pg 26.0 - 34.0 pg [facility] MCHC (RBC) [Mass/Vol] 31.8 g/dL 31.0 - 37.0 g/dL [facility] MCV (RBC) [Entitic vol] 82.7 fL 80.0 - 100.0 fL [facility] Nucleated RBC (Bld) [#/Vol] 0.04 10*3/uL [facility] Nucleated RBC/100 WBC (Bld) [Ratio] 0.3 % [facility] Platelet mean volume (Bld) [Entitic vol] 8.6 fL Low 9.4 - 12.4 fL [facility] Platelets (Bld) [#/Vol] 287 10*3/uL [facility] RBC (Bld) [#/Vol] 4.98 10*6/uL [facility] ealth WBC (Bld) [#/Vol] 12.16 10*3/uL [facility] Manual Differential panel (B ld)on 04-20-2024 Basophils (Bld) [#/Vol] 0.00 10*3/uL [facility] Basophils/100 WBC (Bld) 0.0 % [facility] Eosinophils (Bld) [#/Vol] 0.12 10*3/uL [facility] Eosinophils/100 WBC (Bld) 1.0 % [facility] Lymphocytes (Bld) [#/Vol] 6.32 10*3/uL High [facility] Lymphocytes/100 WBC (Bld) 46.0 % [facility] Monocytes (Bld) [#/Vol] 0.73 10*3/uL [facility] Monocytes/100 WBC (Bld) 6.0 % [facility] Neutrophils (Bld) [#/Vol] 4.99 10*3/uL [facility] Neutrophils/100 WBC (Bld) 41.0 % [facility] Variant lymphocytes/100 WBC (Bld) 6.0 % [facility] No Panel Informationon 04-20 Interpretation and review of laboratory results Abnormal [facility] CHEMISTRYOrdered By: SYSTEM SYSTEM on 12-15-2023 Albumin [Mass/Vol] 4.3 g/dL Normal 3.3 - 5.0 gm/dL [facility] Albumin DL <= 20 mg/L (U) [Mass/Vol] 1.3 mg/dL Normal 0.0 - 1.9 mg/dL [facility] Albumin/Globulin [Mass ratio] 1.3 {ratio} Normal 1.1 - 2.2 [facility] ALP [Catalytic activity/Vol] 118 [iU]/d High 21 - 98 Int._Unit/L [facility] ALT No additional P-5'-P [Catalytic activity/Vol] 41 [iU]/d Normal 6 - 46 Int._Unit/L [facility] Anion gap [Moles/Vol] 14 mmol/L Normal 6 - 16 mEq/L [facility] AST [Catalytic activity/Vol] 29 [iU]/d Normal 5 - 43 Int._Unit/L [facility] Bilirubin [Mass/Vol] 0.3 mg/dL Normal 0.0 - 1.1 mg/dL [facility] Calcium [Mass/Vol] 9.8 mg/dL Normal 8.9 - 11. 1 mg/dL [facility] Chloride [Moles/Vol] 105 mmol/L Normal 101 - 111 mmol/L [facility] Cholesterol [Mass/Vol] 232 mg/dL High 120 - 200 mg/dL [facility] Cholesterol in HDL [Mass/Vol] 56 mg/dL Invalid Interpretation Code [facility] Comment on above: Result Comment: '>= 60 LOW RISK' '<= 40 HIGH RISK' Cholesterol in LDL [Mass/Vol] 163 mg/dL High <=129mg/dL [facility] Cholesterol in VLDL [Mass/Vol] 38 mg/dL Normal 7 - 40 mg/dL [facility] CO2 [Moles/Vol] 26 mmol/L Normal 21 - 31 mmol/L [facility] Creatinine [Mass/Vol] 0.6 mg/dL Normal 0.5 - 1.3 mg/dL [facility] eGFR 115 mL/min/1.73 m2 Normal >=59mL/mi n/1.7 3 m2 [facility] Globulin (S) [Mass/Vol] 3.2 g/dL Normal 1.4 - 4.0 gm/dL [facility] Glucose [Mass/Vol] 122 mg/dL Normal 55 - 199 mg/dL [facility] Potassium [Moles/Vol] 4.5 mmol/L Normal 3.5 - 5.3 mmol/L [facility] Protein [Mass/Vol] 7.5 g/dL Normal 6.0 - 7.8 gm/dL [facility] Sodium [Moles/Vol] 140 mmol/L Normal 135 - 145 mmol/L [facility] Triglyceride [Mass/Vol] 188 mg/dL High <=149mg/dL [facility] Urea nitrogen [Mass/Vol] 8 mg/dL Normal 5 - 21 mg/dL [facility] Urea nitrogen/Creatinine [Mass ratio] 13 mg/mg Normal 10 - 20 [facility] CHEMISTRYOrdered By: Ned rodriguez on 12-15-2023 HbA1c (Bld) [Mass fraction] 6.4 % High <=5.9% [facility] Chem[employer]SS HEMATOLOGYOrdered By: SYSTEM SYSTEM on 12-15-2023 Anisocytosis Ql (Bld) PRESENT *NA* (12/15/23 10:57 AM) Invalid Interpretation Code [facility] Basophils (Bld) [#/Vol] 0.0 E9/L Normal 0.0 - 0.2 E9/L [facility] Basophils/100 WBC (Bld) 0.0 % Normal 0.0 - 2.0 % [facility] Eosinophils (Bld) [#/Vol] 0.0 E9/L Normal 0.0 - 0.5 E9/L [facility] Eosinophils/100 WBC (Bld) 0.0 % Normal 0.0 - 8.0 [facility] Erythrocyte distribution width (RBC) [Ratio] 16.0 % High 10.9 - 14.2 % [facility] Hematocrit (Bld) [Volume fraction] 41.9 % Normal 34.0 - 46.0 % [facility] Hemoglobin (Bld) [Mass/Vol] 13.4 g/dL Normal 12.0 - 16.0 gm/dL [facility] Hypochromia Auto Ql (Bld) PRESENT *NA* (12/15/23 10:57 AM) Invalid Interpretation Code [facility] Lymphocytes (Bld) [#/Vol] 8.8 E9/L High 1.0 - 4.0 E9/L [facility] Lymphocytes/100 WBC (Bld) 61.0 % High 14.0 - 50.0 % [facility] MCH (RBC) [Entitic mass] 26.4 pg Low 27.0 - 34.0 pg [facility] MCHC (RBC) [Mass/Vol] 31.9 g/dL Normal 31.4 - 36.0 gm/dL [facility] MCV (RBC) [Entitic vol] 82.7 fL Normal 80.0 - 100.0 fL [facility] Monocytes (Bld) [#/Vol] 0.7 E9/L Normal 0.2 - 1.0 E9/L [facility] Monocytes/100 WBC (Bld) 5.0 % Normal 4.0 - 14.0 % [facility] Neutrophils (Bld) [#/Vol] 4.2 E9/L Invalid Interpretation Code [facility] Nucleated cells (Bld) [#/Vol] 1 1 High 0 - 0 [facility] Platelet 314.0 E9/L Normal 150.0 - 500.0 E9/L [facility] Platelet mean volume (Bld) [Entitic vol] 6.7 fL Normal 6.4 - 10.8 fL [facility] RBC (Bld) [#/Vol] 5.1 E12/L Normal 4.3 - 5.9 E12/L [facility] Segmented neutrophils/100 WBC (Bld) 31 % Low 50 - 70 % [facility] Variant lymphocytes/100 WBC (Bld) 3 % High <=0% [facility] WBC corrected for nucl RBC Auto (Bld) [#/Vol] 13.7 E9/L High 4.0 - 11.0 E9/L [facility] Comprehensive metabolic 2000 panelon 10-12-2023 Albumin [Mass/Vol] 4.2 g/dL 3.2 - 5.2 g/dL [facility] ALP [Catalytic activity/Vol] 140 U/L 40 - 150 U/L [facility] ALT [Catalytic activity/Vol] 50 U/L High 0-35 U/L [facility] Anion gap [Moles/Vol] 16 mmol/L 10 - 20 mmol/L [facility] AST [Catalytic activity/Vol] 36 U/L High 0-35 U/L [facility] Bilirubin [Mass/Vol] 0.2 mg/dL 0.0 - 1.3 mg/dL [facility] Calcium [Mass/Vol] 9.1 mg/dL 8.4 - 10. 2 mg/dL [facility] Chloride [Moles/Vol] 104 mmol/L 98 - 108 mmol/L [facility] Creatinine [Mass/Vol] 0.54 mg/dL 0.40 - 1.10 mg/dL [facility] GFR/1.73 sq M.predicted CKD-EPI (S/P/Bld) [Vol rate/Area] 119 - PINF [facility] Comment on above: Estimated GFR was ca lculated using the 2020 CKD-EPI creatinine equation. Glucose [Mass/Vol] 83 mg/dL 65 - 99 mg/dL [facility] HCO3 [Moles/Vol] 26 mmol/L 21 - 32 mmol/L [facility] Interpretation and review of laboratory results Abnormal [facility] Potassium [Moles/Vol] 4.3 mmol/L 3.5 - 5.1 mmol/L [facility] Protein [Mass/Vol] 6.9 g/dL 6.0 - 8.0 g/dL [facility] Sodium [Moles/Vol] 142 mmol/L 135 - 145 mmol/L [facility] Urea nitrogen [Mass/Vol] 11 mg/dL 8 - 25 mg/dL [facility] Urea nitrogen/Creatinine [Mass ratio] 20.4 mg/mg High 10.0 - 20.0 [facility] has implemented the eGFR calculation approach that does not have a coefficient for race that conforms to the NKF-ASN Task Force Recommendations. [facility] Vitamin D, Total, 25-OHon 25-hydroxyvitamin D [Mass/Vol] 49 ng/mL 30 - 100 ng/mL [facility] Comment on above: Vitamin D status: Deficiency: <10 ng/mL Insufficiency: 10-30 ng/mL Sufficiency: 30-100 ng/mL Toxicity: >100 ng/mL Interpretation and review of laboratory results Normal [facility] Assay performed usin g [employer] CLIA methodology. [facility] CHEMISTRYOrdered By: SYSTEM SYSTEM on 06-18-2023 Albumin [Mass/Vol] 3.3 g/dL Normal 3.3 - 5.0 gm/dL [facility] Remisol Albumin/Globulin [Mass ratio] 0.8 {ratio} Low 1.1 - 2.2 [facility] Remisol ALP [Catalytic activity/Vol] 115 [iU]/d High 21 - 98 Int._Unit/L [facility] Remisol ALT No additional P-5'-P [Catalytic activity/Vol] 45 [iU]/d Normal 6 - 46 Int._Unit/L [facility] Remisol Anion gap [Moles/Vol] 14 mmol/L Normal 6 - 16 mEq/L [facility] Remisol AST [Catalytic activity/Vol] 39 [iU]/d Normal 5 - 43 Int._Unit/L [facility] Remisol Bilirubin [Mass/Vol] 0.2 mg/dL Normal 0.0 - 1.1 mg/dL [facility] Remisol Calcium [Mass/Vol] 9.6 mg/dL Normal 8.9 - 11. 1 mg/dL [facility] Chloride [Moles/Vol] 109 mmol/L Normal 101 - 111 mmol/L [facility]isol Cholesterol [Mass/Vol] 322 mg/dL High 120 - 200 mg/dL [facility]isol Cholesterol in HDL [Mass/Vol] 48 mg/dL Invalid Interpretation Code [facility] Comment on above: Interpretive Data: H DL > or equal to 60 mg/dL: Low cardiovascular risk HDL < 40 mg/dL : High cardiovascular risk Cholesterol in LDL [Mass/Vol] 132 mg/dL High <=129mg/dL [facility]isol Cholesterol in VLDL [Mass/Vol] 55 mg/dL High 7 - 40 mg/dL [facility] CO2 [Moles/Vol] 25 mmol/L Normal 21 - 31 mmol/L [facility]isol Creatinine [Mass/Vol] 0.7 mg/dL Normal 0.5 - 1.3 mg/dL [facility]isol GFR/1.73 sq M.predicted among non-blacks MDRD (S/P/Bld) [Vol rate/Area] 112 mL/min/1.73 m2 Normal >=59mL/min/1.7 3 m2 [facility] Chem S Comment on above: Interpretive Data: C hronic kidney disease could be indicated at eGFR's of less than 60 mL/min/1.73m2. Kidney failure is indicated at less than 15 mL/min/1.73m2. Globulin (S) [Mass/Vol] 4.3 g/dL High 1.4 - 4.0 gm/dL [facility] Remisol Glucose [Mass/Vol] 104 mg/dL Normal 55 - 199 mg/dL [facility] Comment on above: Interpretive Data: I f this glucose result represents a fasting glucose, interpretation should refer to the following reference range: 55-99 mg/dL Potassium [Moles/Vol] 4.7 mmol/L Normal 3.5 - 5.3 mmol/L [facility] Remisol Protein [Mass/Vol] 7.6 g/dL Normal 6.0 - 7.8 gm/dL [facility] Remisol Sodium [Moles/Vol] 143 mmol/L Normal 135 - 145 mmol/L [facility] Remisol Triglyceride [Mass/Vol] 275 mg/dL High <=149mg/dL [facility] Remisol Urea nitrogen [Mass/Vol] 7 mg/dL Normal 5 - 21 mg/dL [facility] Remisol Urea nitrogen/Creatinine [Mass ratio] 10 mg/mg Normal 10 - 20 [facility] Remisol CHEMISTRYOrdered By: Yoli Motta on 06-18-2023 Albumin DL <= 20 mg/L (U) [Mass/Vol] 5.3 microgram/mL Normal 0.0 - 19.0 mcg/mL [facility] Remisol Albumin Elph (U) [Mass fraction] mg/dL Invalid Interpretation Code [facility] Remisol Comment on above: Interpretive Data: T he reference range and other method performance specifications have not been established for this test; results should be integrated into the clinical context for interpretation. Creatinine (U) [Mass/Vol] 151.3 mg/dL Invalid Interpretation Code [facility] Remisol Comment on above: Interpretive Data: T he reference range and other method performance specifications have not been established for this test; results should be integrated into the clinical context for interpretation. U Prot/Creat Ratio [facility] Invalid Interpretation Code 0.00 - 200.00 [facility] Remisol CHEMISTRYOrdered By: Kirsty Jay on 06-18-2023 HbA1c (Bld) [Mass fraction] 5.8 % Normal <=5.9% [facility] ChemAutoSS HEMATOLOGYOrdered By: SYSTEM SYSTEM on 06-18-2023 Basophils/100 WBC (Bld) 0.5 % Normal 0.0 - 2.0 % [facility] HemeAutoSS Basophils/Leukocyte s Auto (Bld) [Pure # fraction] 0.1 E9/L Normal 0.0 - 0.2 E9/L [facility] HemeAutoSS Eosinophils/100 WBC (Bld) 2.4 % Normal 0.0 - 8.0 % [facility] HemeAutoSS Eosinophils/Leukocy greer Auto (Bld) [Pure # fraction] 0.3 E9/L Normal 0.0 - 0.5 E9/L [facility] HemeAutoSS Lymphocytes/100 WBC (Bld) 59.0 % High 14.0 - 50.0 % [facility] HemeAutoSS Lymphocytes/Leukocy greer Auto (Bld) [Pure # fraction] 7.4 E9/L High 1.0 - 4.0 E9/L [facility] HemeAutoSS Monocytes/100 WBC (Bld) 5.4 % Normal 4.0 - 14.0 % [facility] HemeAutoSS Monocytes/Leukocyte s Auto (Bld) [Pure # fraction] 0.7 E9/L Normal 0.2 - 1.0 E9/L [facility]eAutoSS Neutrophils/100 WBC (Bld) 32.7 % Low 36.0 - 75.0 % [facility] HemeAutoSS Neutrophils/Leukocy greer Auto (Bld) [Pure # fraction] 4.1 E9/L Normal 2.0 - 7.5 E9/L [facility] HemeAutoSS HEMATOLOGYOrdered By: Lester Jay on 06-18-2023 Erythrocyte distribution width (RBC) [Ratio] 15.2 % High 10.9 - 14.2 % [facility]eAutoSS Hematocrit (Bld) [Volume fraction] 40.5 % Normal 34.0 - 46.0 % [facility] HemeAutoSS Hemoglobin (Bld) [Mass/Vol] 13.6 g/dL Normal 12.0 - 16.0 gm/dL [facility]eAuto[facility] MCH (RBC) [Entitic mass] 27.4 pg Normal 27.0 - 34.0 pg [facility] MCHC (RBC) [Mass/Vol] 33.6 g/dL Normal 31.4 - 36.0 gm/dL [facility] MCV (RBC) [Entitic vol] 81.6 fL Normal 80.0 - 100.0 fL [facility]eAuto[facility] Platelet mean volume (Bld) [Entitic vol] 6.6 fL Normal 6.4 - 10.8 fL [facility]eAutoSS Platelets (Bld) [#/Vol] 293.0 E9/L Normal 150.0 - 500.0 E9/L [facility] RBC (Bld) [#/Vol] 5.0 E12/L Normal 4.3 - 5.9 E12/L [facility] WBC corrected for nucl RBC Auto (Bld) [#/Vol] 12.6 E9/L High 4.0 - 11.0 E9/L [facility] Comment on above: Result Comment: Slid e reviewed by AD. Stratify JCV Antibody with I ndexOrdered By: Kassandra Layne on 04-30-2023 JCV Ab by Inhibition Interpretation Negative Negative [facility] JCV Antibody Negative Negative, Indeterminate [facility] Stratify JCV Ab (with Index) w/RFL Inhibition Index Value 0.07 [facility] Miscellaneous Lab TestOrdere d By: Ce Posada on 04-29-2023 [facility] Comprehensive metabolic 2000 panelon 04-20-2023 Albumin [Mass/Vol] 4.1 g/dL 3.2 - 5.2 g/dL [facility] ALP [Catalytic activity/Vol] 134 U/L 40 - 140 U/L [facility] ALT [Catalytic activity/Vol] 39 U/L 0 - 40 U/L [facility] Anion gap [Moles/Vol] 15 mmol/L 10 - 20 mmol/L [facility] AST [Catalytic activity/Vol] 26 U/L 0 - 45 U/L [facility] Bilirubin [Mass/Vol] 0.2 mg/dL 0.0 - 1.3 mg/dL [facility] Calcium [Mass/Vol] 9.3 mg/dL 8.4 - 10. 2 mg/dL [facility] Chloride [Moles/Vol] 105 mmol/L 98 - 108 mmol/L [facility] Creatinine [Mass/Vol] 0.57 mg/dL 0.40 - 1.10 mg/dL [facility] GFR/1.73 sq M.predicted CKD-EPI (S/P/Bld) [Vol rate/Area] 118 - PINF [facility] Comment on above: Estimated GFR was ca lculated using the 2020 CKD-EPI creatinine equation. Glucose [Mass/Vol] 101 mg/dL High 65 - 99 mg/dL [facility] HCO3 [Moles/Vol] 24 mmol/L 21 - 32 mmol/L [facility] Interpretation and review of laboratory results Abnormal [facility] Potassium [Moles/Vol] 4.3 mmol/L 3.5 - 5.1 mmol/L [facility] Protein [Mass/Vol] 6.9 g/dL 6.0 - 8.0 g/dL [facility] Sodium [Moles/Vol] 140 mmol/L 135 - 145 mmol/L [facility] Urea nitrogen [Mass/Vol] 10 mg/dL 8 - 25 mg/dL [facility] Urea nitrogen/Creatinine [Mass ratio] 17.5 mg/mg 10.0 - 20.0 [facility] has implemented the eGFR calculation approach that does not have a coefficient for race that conforms to the NKF-ASN Task Force Recommendations. [facility] Vitamin D, Total, 25-OHon 25-hydroxyvitamin D [Mass/Vol] 42 ng/mL 30 - 100 ng/mL [facility] Comment on above: Vitamin D status: Deficiency: <10 ng/mL Insufficiency: 10-30 ng/mL Sufficiency: 30-100 ng/mL Toxicity: >100 ng/mL Interpretation and review of laboratory results Normal [facility] Assay performed beatrice kimball [employer] CLIA methodology. [facility] Stratify JCV Antibody with I ndexOrdered By: Kassandra Layne on 10-29-2022 JCV Ab by Inhibition Interpretation Negative Negative [facility] JCV Antibody Negative Negative, Indeterminate [facility] Stratify JCV Ab (with Index) w/RFL Inhibition Index Value 0.11 [facility] XR HAND LT MIN 3Von 09-23-19 XR HAND LT MIN 3V EXAM: XR HAND LT MIN 3V HISTORY: Pain COMPARISON: None. TECHNIQUE: 4 views of the left hand are performed. FINDINGS: There is no acute fracture. The bony structures are intact. Joint spaces are maintained. Unremarkable soft tissues. IMPRESSION: No acute bony abnormality. Electronically authenticated by: AAMIR BUCIO Date: 2022-09-23 21:04 Normal [facility] Comprehensive metabolic 2000 panelon 05-04-2022 Albumin [Mass/Vol] 4.2 g/dL 3.2 - 5.2 g/dL [facility] ALP [Catalytic activity/Vol] 161 U/L High 40 - 140 U/L [facility] ALT [Catalytic activity/Vol] 52 U/L High 0 - 40 U/L [facility] Anion gap [Moles/Vol] 15 mmol/L 10 - 20 mmol/L [facility] AST [Catalytic activity/Vol] 46 U/L High 0 - 45 U/L [facility] Bilirubin [Mass/Vol] mg/dL 0 - 1.3 mg/dL [facility] Calcium [Mass/Vol] 9.1 mg/dL 8.4 - 10. 2 mg/dL [facility] Chloride [Moles/Vol] 103 mmol/L 98 - 108 mmol/L [facility] Creatinine [Mass/Vol] 0.58 mg/dL 0.40 - 1.10 mg/dL [facility] GFR/1.73 sq M.predicted CKD-EPI (S/P/Bld) [Vol rate/Area] 118 - PINF [facility] Comment on above: Estimated GFR was ca lculated using the 2020 CKD-EPI creatinine equation. Glucose [Mass/Vol] 112 mg/dL High 65 - 99 mg/dL [facility] HCO3 [Moles/Vol] 28 mmol/L 21 - 32 mmol/L [facility] Interpretation and review of laboratory results Abnormal [facility] Potassium [Moles/Vol] 4.1 mmol/L 3.5 - 5.1 mmol/L [facility] Protein [Mass/Vol] 6.9 g/dL 6 - 8 g/dL [facility] Sodium [Moles/Vol] 142 mmol/L 135 - 145 mmol/L [facility] Urea nitrogen [Mass/Vol] 10 mg/dL 8 - 25 mg/dL [facility] Urea nitrogen/Creatinine [Mass ratio] 17.2 mg/mg 10 - 20 [facility] has implemented the eGFR calculation approach that does not have a coefficient for race that conforms to the NKF-ASN Task Force Recommendations. [facility] CT HEAD WO W CONon 2 CT HEAD WO W CON NONCONTRAST CT SCAN OF THE HEAD CT HEAD WO W CON HISTORY: Tremor 41-year-old female with follow-up from prior CT from earlier this evening. TECHNIQUE: Multiple axial images are taken from the level the vertex down to the base of the skull without the use of IV contrast. Images were then reconstructed in the sagittal and coronal planes. This exam was performed according to our departmental dose-optimization program which includes use of Automated Exposure Control, adjustment of the mA and/or kV according to patient size and/or use of iterative reconstruction technique. COMPARISON: CT head which was performed earlier the same day. FINDINGS: Brain Parenchyma: No intracranial mass. No intracranial hemorrhage. Hwang-white matter within expected limits of normal for patient's age. No mass is demonstrated. No contusion. Previously demonstrated area of hyper dense area within the left inferior temporal lobe is demonstrated on postcontrast images to have been artifactual from the skull. Posterior fossa: Normal. Midline shift: None Extra-axial fluid collection: None Ventricles: Normal. Mastoid air cells: Normal. Sinuses: Normal. Cranium: No depressed skull fracture. Soft tissues: Normal. Orbits: Normal. IMPRESSION: 1. No noncontrast CT evidence for acute intracranial pathology. 2. If symptoms continue and if clinically indicated, MRI may help better delineate. Electronically authenticated by: JENNIFER JAIMES Date: 2022-04-19 22:50 Normal [facility] CARDIAC SANCHO ADMITon 04-19-2 022 CK [Catalytic activity/Vol] 39 U/L Normal 26-192 [facility] Comment on above: Performed By: #### C CLAUDIA, SYL, TSH ####[facility] [address] [place], [place] [address]AiErick Lockett CK.MB [Mass/Vol] 0.36 ng/mL Normal <=3.60 [facility] Comment on above: Performed By: #### C CLAUDIA, KATHIDM, TSH ####[facility] [address] [place], [place] [address]ToErick Lockett HSTROP 5.5 pg/mL Normal 4.0-51.3 [facility] Comment on above: Result Comment: CUT- OFF POINTS HAVE BEEN ESTABLISHED BASED ON THE FOURTH UNIVERSAL DEFINITIONS OF MYOCARDIAL INFARCTION. THE UPPER REFERENCE LIMIT (URL) OF TROPONIN, DEFINED THE 99TH PERCENTILE OF cTnI DISTRIBUTION IN A REFERENCE POPULATION, HAS BEEN CONFIRMED THE DECISION THRESHOLD FOR CA DIAGNOSIS. Performed By: #### C SYL TAYLOR, TSH ####[facility] [address] [place] [address]Dr. Chanellejulian Lockett QASIM 28 ng/mL Normal 9-82 [facility] Comment on above: Performed By: #### C MPSYL, TSH ####[facility] [address] [place] [address]Dr. Christopher Lockett CBC AUTO DIFFon 04-19-2022 BASO # 0.1 103/ul Normal 0.0-0.1 [facility] Comment on above: Performed By: #### C BC ####[facility] [address] [place], [place] [address]Dr. Christopher Lockett Basophils/100 WBC (Bld) 0.5 % Normal 0.2-2.0 [facility] Comment on above: Performed By: #### C BC ####[facility] [address] [place], [place] [address]Dr. Christopher Lockett EO # 0.6 103/ul Normal 0.0-0.7 [facility] Comment on above: Performed By: #### C BC ####[facility] [address] [place], [place] [address]Dr. Christopher Lockett Eosinophils/100 WBC (Bld) 4.2 % Normal 0.9-7.0 [facility] Comment on above: Performed By: #### C BC ####[facility] [address] [place], [place] [address]Dr. Christopher Lockett Erythrocyte distribution width (RBC) [Ratio] 15.3 % Critically high 11.0-15.0 [facility] Comment on above: Performed By: #### C BC ####[facility] [address] [place], [place] [address]Dr. Christopher Lockett Hematocrit (Bld) [Volume fraction] 39.3 % Normal 36.0-48.0 [facility] Comment on above: Performed By: #### C BC ####[facility] [address] [place] [address]. Chanellejulian Levy Hemoglobin (Bld) [Mass/Vol] 12.8 g/dL Normal 12.0-16.0 [facility] Comment on above: Performed By: #### C BC ####[facility] [address] [place] [address]Dr. Chanellejulian Levy IG # 0.05 10e3/ul Critically high 0.00-0.03 [facility] Comment on above: Performed By: #### C BC ####[facility] [address] [place] [address]Dr. Christopher Lockett IG % 0.4 % Normal 0.0-0.5 [facility] Comment on above: Performed By: #### C BC ####[facility] [address] [place], [place] [address]DrErick Lockett LYMPH # 8.3 103/ul Critically high 1.2-3.8 [facility] Comment on above: Performed By: #### C BC ####[facility] [address] [place], [place] [address]Dr. Christopher Lockett Lymphocytes/100 WBC (Bld) 58.2 % Normal 20.5-60.0 [facility] Comment on above: Performed By: #### C BC ####[facility] [address] [place] [address]Dr. Christopher Lockett MANUAL DIFF REQ NO Normal [facility] Comment on above: Performed By: #### C BC ####[facility] [address] [place], [place] [address]DrErick Rocajulian Levy MCH (RBC) [Entitic mass] 26.8 pg Normal 26.7-34.0 [facility] Comment on above: Performed By: #### C BC ####[facility] [address] [place], [place] [address]DrErick Lockett MCHC (RBC) [Mass/Vol] 32.6 g/dL Normal 29.9-35.2 [facility] Comment on above: Performed By: #### C BC ####[facility] [address] [place], [place] [address]Dr. Christopher Levy MCV (RBC) [Entitic vol] 82.2 fL Normal 81.0-99.0 [facility] Comment on above: Performed By: #### C BC ####[facility] [address] [place] [address]Dr. Christopher Lockett MONO # 0.9 103/ul Critically high 0.3-0.8 [facility] Comment on above: Performed By: #### C BC ####[facility] [address] [place] [address]Dr. Christopher Lockett Monocytes/100 WBC (Bld) 6.5 % Normal 1.7-12.0 [facility] Comment on above: Performed By: #### C BC ####[facility] [address] [place], [place] [address]Dr. Christopher Levy NEUT # 4.3 103/ul Normal 1.4-6.5 [facility] Comment on above: Performed By: #### C BC ####[facility] [address] [place], [place] [address]Dr. Chanellejulian Lockett Neutrophils/100 WBC (Bld) 30.2 % Critically low 43.0-75.0 [facility] Comment on above: Performed By: #### C BC ####[facility] [address] [place], [place] [address]Dr. Christopher Lockett Platelet mean volume (Bld) [Entitic vol] 8.1 fL Critically low 9.5-13.5 [facility] Comment on above: Performed By: #### C BC ####[facility] [address] [place], [place] [address]Dr. Chanellejulian Lockett PLT 278 103/ul Normal 150-450 [facility] Comment on above: Performed By: #### C BC ####[facility] [address] [place], [place] [address]Dr. Christopher Lockett RBC 4.78 106/ul Normal 4.20-5.40 [facility] Comment on above: Performed By: #### C BC ####[facility] [address] [place], [place] [address]DrErick Lockett WBC 14.2 103/ul Critically high 4.0-11.0 [facility] Comment on above: Performed By: #### C ####[facility] [address] [place], [place] [address] CT HEAD WO CONon 04-19-2022 CT HEAD WO CON NONCONTRAST CT SCAN OF THE HEAD CT HEAD WO CON HISTORY: Tremor in a 41-year-old female TECHNIQUE: Multiple axial images are taken from the level the vertex down to the base of the skull without the use of IV contrast. Images were then reconstructed in the sagittal and coronal planes. This exam was performed according to our departmental dose-optimization program which includes use of Automated Exposure Control, adjustment of the mA and/or kV according to patient size and/or use of iterative reconstruction technique. COMPARISON: 04/01/2019 CT head FINDINGS: Brain Parenchyma: No intracranial mass. Bilateral 04/19/2022asal ganglia calcifications. Question of an inferior left temporal lobe contusion or hyperdense mass which is also detected by the AI that measures 2.0 x 2.6 cm greater than expected for motion artifact.. Hwang-white matter is otherwise within expected limits of normal for patient's age. Posterior fossa: Normal. Midline shift: None Extra-axial fluid collection: None Ventricles: Normal. Mastoid air cells: Normal. Sinuses: Normal. Cranium: No depressed skull fracture. Soft tissues: Normal. Orbits: Normal. IMPRESSION: Inferior left temporal lobe area of increased attenuation. Although this maybe artifactual from motion off of the skull, an inferior temporal lobe contusion or extra-axial hyperdense mass in a non contrast CT can not be excluded. (This was also detected by the AI) This area measures up to 2.6 cm it may represent a contusion or a extra-axial meningioma. Given that MRI is not available at this location, a repeat CT scan with and without contrast of the head in 1-2 hours after receiving IV fluid to better hydrate prior to the contrast would allow us to see if this area is artifactual or a the above. If this ends up being a real lesion: MRI with IV contrast using diffusion-weighted imaging and GRE sequence is recommended for further evaluation. CRITICAL findings communicated Dr. Flor at 6:11pm Electronically authenticated by: JENNIFER JAIMES Date: 2022-04-19 18:21 Normal [facility] Covid-19 PCR (CVDTB)on 04-06 SARS-CoV-2 (COVID-19) RNA CELINE+probe Ql (Unsp spec) Not detected Normal NOT DETECTED [facility] Comment on above: Result Comment: When diagnostic testing is negative, the possibility of a false negative should be considered in the context of a patient's recent exposures and the presence of clinical signs and symptoms consistent with SARS-CoV-2. This test is not yet approved or cleared by the [place] FDA. When there are no FDA-approved or cleared tests available, and other criteria are met, FDA can make tests available under an emergency access mechanism called an Emergency Use Authorization (EUA). The EUA for this test is supported by the [place] of Health and Human Service's declaration that circumstances exist to justify the emergency use of in vitro diagnostics for the detection and/or diagnosis of the virus that causes COVID-19. This EUA will remain in effect for the duration of the COVID-19 declaration justifying emergency of IVDs, unless it is terminated or revoked by the FDA (after which the test may no longer be used). Performed By: #### C VDTBH ####[facility] [address] [place] [address]Dr. Christopher Lockett DRUG SCREEN RAPID (URINE)on 04-19-2022 AMP Negative Normal NEGATIVE [facility] Comment on above: Performed By: #### D RUGRPD #### [facility] [address] [place] [address] Dr. Christopher Lockett BAR Negative Normal NEGATIVE [facility] Comment on above: Performed By: #### D RUGRPD #### [facility] [address] [place] [address] [address] Christopher Lockett BUP Negative Normal NEGATIVE [facility] Comment on above: Performed By: #### D RUGRPD #### [facility] [address] [place] [address] Dr. Christopher Lockett BZO Positive Abnormal NEGATIVE [facility] Comment on above: Performed By: #### D RUGRPD #### [facility] [address] [place] [address] [address] Christopher Lockett JENNIFER Negative Normal NEGATIVE [facility] Comment on above: Performed By: #### D RUGRPD #### [facility] [address] [place] [address] Dr. Christopher Lockett CUT-OFFS SEE BELOW Normal [facility] Comment on above: Result Comment: AMP (Amphetamine): 500ng/mL, BAR (Barbituates): 200 ng/mL, BZO (Benzodiazepines): 150 ng/mL, BUP (Buprenorphine): 10 ng/mL, JENNIFER (Cocaine): 150 ng/mL, mAMP (Methamphetamine): 500 ng/mL, MTD (Methadone): 200 ng/mL, OPI (Opiates): 100 ng/mL, OXY (Oxycodone): 100 ng/mL, PCP (Phencyclidine): 25 ng/mL, PPX (Propoxyphene): 300 ng/mL, THC (Cannabinoids): 50 ng/mL, TCA (Trycyclic Antidepressants): 300 ng/mL Performed By: #### D RUGRPD #### [facility] [address] [place] [address] Dr. Christopher Lockett DRUG CUT HEADER DRUG CLASS TEST SYST EM CUT-OFF CONCENTRATIONS ARE FOLLOWS: Normal [facility] Comment on above: Performed By: #### D RUGRPD #### [facility] [address] [place] [address] Dr. Christopher Lockett mAMP Negative Normal NEGATIVE [facility] Comment on above: Performed By: #### D RUGRPD #### [facility] [address] [place] [address] Dr. Christopher Lockett MTD Negative Normal NEGATIVE [facility] Comment on above: Performed By: #### D RUGRPD #### [facility] [address] [place] [address] Dr. Christopher Lockett OPI Negative Normal NEGATIVE [facility] Comment on above: Performed By: #### D RUGRPD #### [facility] [address] [place] [address] Dr. Christopher Lockett OXY Negative Normal NEGATIVE [facility] Comment on above: Performed By: #### D RUGRPD #### [facility] [address] [place] [address] Dr. Christopher Lockett PCP Negative Normal NEGATIVE [facility] Comment on above: Performed By: #### D RUGRPD #### [facility] [address] [place] [address] Dr. Christopher Lockett PPX Negative Normal NEGATIVE [facility] Comment on above: Performed By: #### D RUGRPD #### [facility] [address] [place] [address] Dr. Christopher Lockett TCA Positive Abnormal NEGATIVE [facility] Comment on above: Performed By: #### D RUGRPD #### [facility] [address] [place] [address] Dr. Christopher Lockett THC Negative Normal NEGATIVE [facility] Comment on above: Performed By: #### D RUGRPD #### [facility] [address] [place] [address] Dr. Christopher Lockett ER URINE PROFILEon 2 Bilirubin Ql (U) Negative Normal NEGATIVE [facility] Comment on above: Performed By: #### E RUR #### [facility] [address] [place] [address] Dr. Christopher Lockett Clarity (U) CLEAR Normal CLEAR [facility] Comment on above: Performed By: #### E RUR #### [facility] [address] [place] [address] Dr. Christopher Lockett Color (U) YELLOW Normal YELLOW [facility] Comment on above: Performed By: #### E RUR #### [facility] [address] [place] [address] Dr. Christopher Lockett ERUAHTyree A micrscopic examina tion will be performed if indicated. Normal [facility] Comment on above: Performed By: #### E RUR #### [facility] Laboratory [address] [place] [address] Dr. Christopher Lockett Glucose Ql (U) Negative Normal NEGATIVE [facility] Comment on above: Performed By: #### E RUR #### [facility] Laboratory [address] [place] [address] Dr. Christopher Lockett Hemoglobin Ql (U) Negative Normal NEGATIVE [facility] Comment on above: Performed By: #### E RUR #### [facility] Laboratory [address] [place] [address] Dr. Christopher Lockett Ketones Ql (U) Negative Normal NEGATIVE [facility] Comment on above: Performed By: #### E RUR #### [facility] Laboratory [address] [place] [address] Dr. Christopher Lockett LEUKOCYTES Negative Normal NEGATIVE [facility] Comment on above: Performed By: #### E RUR #### [facility] Laboratory [address] [place] [address] Dr. Christopher Lockett Nitrite Ql (U) Negative Normal NEGATIVE [facility] Comment on above: Performed By: #### E RUR #### [facility] Laboratory [address] [place] [address] Dr. Christopher Lockett pH (U) 5.5 [pH] Normal 5-9 [facility] Comment on above: Performed By: #### E RUR #### [facility] Laboratory [address] [place] [address] Dr. Christopher Lockett SPEC GRAVITY >=1.030 Abnormal 1.005-<=1.025 [facility] Comment on above: Performed By: #### E RUR #### [facility] Laboratory [address] [place] [address] Dr. Christopher Lockett UA PROTEIN Negative Normal NEGATIVE/ TRACE [facility] Comment on above: Performed By: #### E RUR #### [facility] Laboratory [address] [place] [address] Dr. Christopher Lockett UR MICRO IND NOT INDICATED Normal [facility] Comment on above: Performed By: #### E RUR #### [facility] Laboratory [address] [place] [address] Dr. Christopher Lockett Urobilinogen Qn (U) 0.2 {Cindy'U}/dL Normal 0.2 - 1. 0 [facility] Comment on above: Performed By: #### E RUR #### [facility] Laboratory [address] [place] [address] Dr. Christopher Lockett PROF 14(COMP METB)on 022 Albumin [Mass/Vol] 3.3 g/dL Critically low 3.4-5.0 Th [facility] Comment on above: Performed By: #### C SYL TAYLOR, TSH #### [facility] Laboratory [address] [address] [address] Christopher Lockett Albumin/Globulin [Mass ratio] 0.8 {ratio} Normal [facility] Comment on above: Performed By: #### C SYL TAYLOR, TSH #### [facility] Laboratory [address] [address] [address] Christopher Lockett ALP [Catalytic activity/Vol] 151 U/L Critically high 46-116 [facility] Comment on above: Performed By: #### C SYL TAYLOR, TSH #### [facility] Laboratory [address] [place] [address] Dr. Christopher Lockett ALT [Catalytic activity/Vol] 56 U/L Normal 14-59 [facility] Comment on above: Performed By: #### C SYL TAYLOR, TSH #### [facility] Laboratory [address] [address] [address] Christopher Lockett Anion gap [Moles/Vol] 14.2 mmol/L Normal [facility] Comment on above: Performed By: #### C SYL TAYLOR, TSH #### [facility] Laboratory [address] [place] [address] Dr. Christopher Lockett AST [Catalytic activity/Vol] 36 U/L Normal 15-37 [facility] Comment on above: Performed By: #### C SYL TAYLOR, TSH #### [facility] Laboratory [address] [address] [address] Christopher Lockett Bilirubin [Mass/Vol] 0.3 mg/dL Normal 0.2-1.0 [facility] Comment on above: Performed By: #### C SYL TAYLOR, TSH #### [facility] Laboratory [address] [address] [address] Christopher Lockett Calcium [Mass/Vol] 8.5 mg/dL Normal 8.5-10.1 [facility] Comment on above: Performed By: #### C SYL TAYLOR, TSH #### [facility] Laboratory [address] [address] [address] Christopher Lockett Chloride [Moles/Vol] 104 mmol/L Normal 98-107 [facility] Comment on above: Performed By: #### C MP, CMADM, TSH #### [facility] Laboratory [address] [address] [address] Christopher Lockett CO2 [Moles/Vol] 25.9 mmol/L Normal 21.0-32.0 [facility] Comment on above: Performed By: #### C MP, CMADM, TSH #### [facility] Laboratory [address] [address] [address] Christopher Lockett Creatinine [Mass/Vol] 0.82 mg/dL Normal 0.55-1.02 [facility] Comment on above: Performed By: #### C MP, CMADM, TSH #### [facility] Laboratory [address] [address] [address] Christopher Lockett EGFR-AF [place] >60 Normal >=60 [facility] Comment on above: Performed By: #### C MP, CMADM, TSH #### [facility] Laboratory [address] [address] [address] Christopher Lockett EGFR-NON AF [place] >60 Normal >=60 [facility] Comment on above: Performed By: #### C MP, CMADM, TSH #### [facility] Laboratory [address] [address] [address] Christopher Lockett Globulin (S) [Mass/Vol] 4.0 g/dL Normal [facility] Comment on above: Performed By: #### C MP, CMADM, TSH #### [facility] Laboratory [address] [address] [address] Christopher Lockett Glucose [Mass/Vol] 109 mg/dL Critically high 74-106 T [facility] Comment on above: Performed By: #### C MP, CMADM, TSH #### [facility] Laboratory [address] [address] [address] Christopher Lockett Potassium [Moles/Vol] 4.1 mmol/L Normal 3.5-5.1 [facility] Comment on above: Performed By: #### C CLAUDIA, CMADM, TSH #### [facility] Laboratory [address] [address] [address] Christopher Lockett Protein [Mass/Vol] 7.3 g/dL Normal 6.4-8.2 [facility] Comment on above: Performed By: #### C CLAUDIA, KATHIDM, TSH #### [facility] Laboratory [address] [place] [address] Dr. Christopher Lockett Sodium [Moles/Vol] 140 mmol/L Normal 136-145 [facility] Comment on above: Performed By: #### C CLAUDIA, KATHIDM, TSH #### [facility] Laboratory [address] [place] [address] Dr. Christopher Lockett Urea nitrogen [Mass/Vol] 10.0 mg/dL Normal 7.0-18.0 [facility] Comment on above: Performed By: #### C SYL TAYLOR, TSH #### [facility] Laboratory [address] [place] [address] Dr. Christopher Lockett Urea nitrogen/Creatinine [Mass ratio] 12.2 mg/mg Normal [facility] Comment on above: Performed By: #### C SYL TYALOR, TSH #### [facility] Laboratory [address] [place] [address] Dr. Christopher Lockett PROTIMEon 04-19-2022 INR Coag (PPP) [Relative time] 1.02 {INR} Normal [facility] Comment on above: Performed By: #### P TT, PT #### [facility] Laboratory [address] [place] [address] Dr. Christopher Lockett INR GUIDELINES SEE BELOW Normal [facility] Comment on above: Result Comment: RENETTA RED INR: 2.0 - 3.0 CONDITIONS NOT LISTED BELOW 2.5 - 3.5 FOR PROSTHETIC HEART VALVE REPLACEMENT 2.5 - 3.5 RECURRENT THROMBOSIS Performed By: #### P TT, PT #### [facility] Laboratory [address] [place] [address] Dr. Christopher Lockett PT Coag (PPP) [Time] 11.0 s Normal 9.0-11.6 [facility] Comment on above: Performed By: #### P TT, PT #### [facility] Laboratory [address] [address] [address] Christopher Lockett PTTon 04-19-2022 aPTT Coag (Bld) [Time] 31.2 s Normal 22.3-36.2 [facility] Comment on above: Performed By: #### P TT, PT #### [facility] Laboratory [address] [address] [address] Christopher Lockett TSHon 04-19-2022 TSH 0.862 uIU/mL Normal 0.358-3.740 [facility] Comment on above: Performed By: #### C MP, CMADM, TSH ####[facility] [address] [address]DrErick Lockett CBC W MANUAL DIFFon 03-04-20 22 ATYPICAL LYMPH # Normal [facility] Comment on above: Performed By: #### C DIMASMAN ####[facility] [address] [place], [place] [address]Dr. Christopher Lockett ATYPICAL LYMPH % Normal [facility] Comment on above: Performed By: #### C BCMAN ####[facility] [address] [address]Dr. Chanellejulian Lockett BAND # 0.3 103/ul Normal 0.0-0.3 [facility] Comment on above: Performed By: #### C BCMAN ####[facility] [address] [address]Dr. Christopher Lockett BAND % 2 % Normal 0-5 [facility] Comment on above: Performed By: #### C BCMAN ####[facility] [address] [address]Dr. Christopher Lockett BASOM # 0.00 103/ul Normal 0.00-0.10 [facility] Comment on above: Performed By: #### C BCMAN ####[facility] [address] [address]Dr. Christopher Lockett BASOM % 0.0 % Critically low 0.2-2.0 [facility] Comment on above: Performed By: #### C JOSUÉ ####[facility] [address] [id number]. Christopher Lockett BLAST # Normal [facility] Comment on above: Performed By: #### C JOSUÉ ####[facility] [address] [id number]. Christopher Lockett BLAST % Normal [facility] Comment on above: Performed By: #### C JOSUÉ ####[facility] [address] [id number]. Christopher Lockett CORRECTED WBC Normal 4.0-11.0 [facility] Comment on above: Performed By: #### C JOSUÉ ####[facility] [address] [address]Dr. Christopher Lockett EOS # 0.62 103/ul Normal 0.00-0.70 [facility] Comment on above: Performed By: #### C JOSUÉ ####[facility] [address] [address]Dr. Christopher Lockett EOS% 4.0 % Normal 0.9-7.0 [facility] Comment on above: Performed By: #### C JOSUÉ ####[facility] [address] [place], [place] [address]Dr. Christopher Lockett HCT 39.8 % Normal 36.0-48.0 [facility] Comment on above: Performed By: #### C JOSUÉ ####[facility] [address] [address]Dr. Christopher Lockett HGB 13.0 g/dl Normal 12.0-16.0 [facility] Comment on above: Performed By: #### C JOSUÉ ####[facility] [address] [id number]. Christopher Lockett LYMPHM # 7.80 103/ul Critically high 1.20-3.80 [facility] Comment on above: Performed By: #### C JOSUÉ ####[facility] [address] [id number]. Christopher Lockett LYMPHM% 50.0 % Normal 20.5-60.0 [facility] Comment on above: Performed By: #### C JOSUÉ ####[facility] [address] [id number]. Christopher Lockett MCH 27.3 pg Normal 26.7-34.0 [facility] Comment on above: Performed By: #### C JOSUÉ ####[facility] [address] [id number]. Christopher Lockett MCHC 32.7 g/dl Normal 29.9-35.2 [facility] Comment on above: Performed By: #### C JOSUÉ ####[facility] [address] [id number]. Christopher Lockett MCV 83.4 fL Normal 81.0-99.0 [facility] Comment on above: Performed By: #### C JOSUÉ ####[facility] [address] [id number]. Christopher Lockett METAMYELOCYTE # Normal [facility] Comment on above: Performed By: #### C JOSUÉ ####[facility] [address] [id number]. Christopher Lockett METAMYELOCYTE % Normal [facility] Comment on above: Performed By: #### C JOSUÉ ####[facility] [address] [address]Dr. Christopher oLckett MONOM# 1.56 103/ul Critically high 0.30-0.80 [facility] Comment on above: Performed By: #### C JOSUÉ ####[facility] [address] [id number]. Christopher Lockett MONOM% 10.0 % Normal 1.7-12.0 [facility] Comment on above: Performed By: #### C JOSUÉ ####[facility] [address] [address]Dr. Christopher Lockett MPV 8.3 fL Critically low 9.5-13.5 [facility] Comment on above: Performed By: #### C JOSUÉ ####[facility] [address] [address]Dr. Christopher Lockett MYELOCYTE # Normal [facility] Comment on above: Performed By: #### C JOSUÉ ####[facility] [address] [place], [place] [address]Ba. Christopher Lockett MYELOCYTE % Normal [facility] Comment on above: Performed By: #### C BCZOFIA ####[facility] [address] [place], [place] [address]Lm. Christopher Lockett NRBC Normal [facility] Comment on above: Performed By: #### C JOSUÉ ####[facility] [address] [place], [place] [address]Jc. Christopher Lockett PLT 283 103/ul Normal 150-450 [facility] Comment on above: Performed By: #### C JOSUÉ ####[facility] [address] [place], [place] [address]Oj. Christopher Lockett RBC 4.77 106/ul Normal 4.20-5.40 [facility] Comment on above: Performed By: #### C JOSUÉ ####[facility] [address] [id number]. Christopher Lockett RDW 15.3 % Critically high 11.0-15.0 [facility] Comment on above: Performed By: #### C JOSUÉ ####[facility] [address] [id number]. Christopher Lockett SEG # 5.30 103/ul Normal 1.40-6.50 [facility] Comment on above: Performed By: #### C JOSUÉ ####[facility] [address] [place], [place] [address]Nv. Christopher Lockett SEG % 34.0 % Critically low 43.0-75.0 [facility] Comment on above: Performed By: #### C JOSUÉ ####[facility] [address] [place], [place] [address]Eu. Christopher Lockett WBC 15.6 103/ul Critically high 4.0-11.0 [facility] Comment on above: Performed By: #### C JOSUÉ ####[facility] [address] [address] Christopher Lockett CT ABD/PELVIS WO CONon 03-04 CT ABD/PELVIS WO CON EXAM: CT SCAN OF THE ABDOMEN AND PELVIS WITHOUT INTRAVENOUS CONTRAST DATE OF EXAM: 03/04/2022 4:40 PM EDT HISTORY: CALCULUS OF KIDNEY in a 41-year-old female. COMPARISON: None. TECHNIQUE: CT examination of the abdomen and pelvis with sagittal and coronal reformations was performed without intravenous contrast. CT dose lowering techniques were used, to include: automated exposure control, adjustment for patient size, and/or use of iterative reconstruction. CONTRAST: None. Note: The exam is limited because some types of pathology may not be adequately demonstrated due to lack of contrast enhancement. FINDINGS: Lower Chest: Normal Free Air: None. Liver: The liver is enlarged measuring 21 cm. Gallbladder: Removed Common Bile Duct: Normal Pancreas: Normal Spleen: Normal Adrenal Glands: Normal Kidneys: Right Kidney: Normal. Right Ureter: Portions of the right ureter which are visualized measure within normal. Left Kidney: Mild hydronephrosis with hydroureter secondary to a punctate stone in the distal left ureter. GI Tract: Stomach: Decompressed Small Bowel: Normal Appendix: Normal on axial image 85 Large Bowel: Normal Mesentery/Peritoneum: Normal Vasculature: Normal Lymph Nodes: Normal Abdominal Wall: Normal Bladder: Decompressed Reproductive: Normal Musculoskeletal: Normal Free Fluid: None. IMPRESSION: 1. Mild left-sided hydronephrosis with hydroureter secondary to a punctate stone in the distal left ureter which is about to pass into the bladder. 2. Normal appendix. 3. Hepatomegaly. 4. Cholecystectomy. Electronically authenticated by: JENNIFER JAIMES Date: 2022-03-04 18:46 Normal [facility] CULTURE URINEon 03-04-2022 CULTURE URINE Culture Observations : NO GROWTH. Normal [facility] Comment on above: Performed By: #### U RCX ####[facility] [address] [address]Dr. Christopher Lockett ER URINE PROFILEon 2 Bilirubin Ql (U) Unable to perform te sting due to color interference. Abnormal NEGATIVE [facility] Comment on above: Performed By: #### E HOSEA MCMILLAN #### [facility] Laboratory [address] [address] [address] Christopher Lockett Clarity (U) CLOUDY Abnormal CLEAR [facility] Comment on above: Performed By: #### Serene MCMILLAN UMICRO #### [facility] Laboratory [address] [place] [address] Dr. Christopher Lockett Color (U) DK. ORANGE Abnormal YELLOW [facility] Comment on above: Performed By: #### E HIPOLITO UMICRO #### [facility] Laboratory [address] [place] [address] Dr. Christopher Lockett ERUAHD A micrscopic examina tion will be performed if indicated. Normal [facility] Comment on above: Performed By: #### Serene MCMILLAN UMICRO #### [facility] Laboratory [address] [place] [address] Dr. Christopher Lockett Glucose Ql (U) Unable to perform te sting due to color interference. Abnormal NEGATIVE [facility] Comment on above: Performed By: #### Serene MCMILLAN UMICRO #### [facility] Laboratory [address] [place] [address] Dr. Christopher Lockett Hemoglobin Ql (U) Unable to perform te sting due to color interference. Abnormal NEGATIVE [facility] Comment on above: Performed By: #### Serene MCMILLAN UMICRO #### [facility] Laboratory [address] [place] [address] Dr. Christopher Lockett Ketones Ql (U) Unable to perform te sting due to color interference. Abnormal NEGATIVE [facility] Comment on above: Performed By: #### Serene MCMILLAN UMICRO #### [facility] Laboratory [address] [place] [address] Dr. Christopher Lockett LEUKOCYTES Unable to perform te sting due to color interference. Abnormal NEGATIVE [facility] Comment on above: Performed By: #### Serene MCMILLAN UMICRO #### [facility] Laboratory [address] [place] [address] Dr. Christopher Lockett Nitrite Ql (U) Unable to perform te sting due to color interference. Abnormal NEGATIVE [facility] Comment on above: Performed By: #### Serene MCMILLAN UMICRO #### [facility] Laboratory [address] [place] [address] Dr. Christopher Lockett pH Unable to perform te sting due to color interference. Abnormal 5-9 [facility] Comment on above: Performed By: #### HOSEA QUIROZ #### [facility] Laboratory [address] [address] [address] Christopher Lockett SPEC GRAVITY 1.030 Abnormal 1.005-<=1.025 [facility] Comment on above: Performed By: #### HOSEA QUIROZ #### [facility] Laboratory [address] [address] [address] Christopher Lockett UA PROTEIN Unable to perform te sting due to color interference. Normal NEGATIVE/ TRACE [facility] Comment on above: Performed By: #### HOSEA QUIROZ #### [facility] Laboratory [address] [place] [address] Dr. Christopher Lockett UR MICRO IND INDICATED Normal [facility] Comment on above: Performed By: #### HOSEA QUIROZ #### [facility] Laboratory [address] [address] [address] Christopher Lockett UROBILINOGEN Unable to perform te sting due to color interference. Normal 0.2 - 1.0 [facility] Comment on above: Performed By: #### HOSEA QUIROZ #### [facility] Laboratory [address] [address] [address] Christopher Lockett PROF 14(COMP METB)on 022 Albumin [Mass/Vol] 3.3 g/dL Critically low 3.4-5.0 [facility] Comment on above: Performed By: #### C MP ####[facility] [address] [address]Dr. Christopher Lockett Albumin/Globulin [Mass ratio] 0.7 {ratio} Normal [facility] Comment on above: Performed By: #### C MP ####[facility] [address] [address]Dr. Christopher Lockett ALP [Catalytic activity/Vol] 160 U/L Critically high 46-116 [facility] Comment on above: Performed By: #### C MP ####[facility] [address] [id number]. Christopher Lockett ALT [Catalytic activity/Vol] 63 U/L Critically high 14-59 [facility] Comment on above: Performed By: #### C MP ####[facility] [address] [address]Dr. Christopher Lockett Anion gap [Moles/Vol] 12.7 mmol/L Normal [facility] Comment on above: Performed By: #### C MP ####[facility] [address] [address]Dr. Christopher Lockett AST [Catalytic activity/Vol] 36 U/L Normal 15-37 [facility] Comment on above: Performed By: #### C MP ####[facility] [address] [place], [place] [address]Dr. Christopher Lockett Bilirubin [Mass/Vol] 0.2 mg/dL Normal 0.2-1.0 [facility] Comment on above: Performed By: #### C MP ####[facility] [address] [place], [place] [address]Dr. Christopher Lockett Calcium [Mass/Vol] 8.7 mg/dL Normal 8.5-10.1 [facility] Comment on above: Performed By: #### C MP ####[facility] [address] [place], [place] [address]Dr. Christopher Lockett Chloride [Moles/Vol] 105 mmol/L Normal 98-107 [facility] Comment on above: Performed By: #### C MP ####[facility] [address] [address]Dr. Christopher Lockett CO2 [Moles/Vol] 28.0 mmol/L Normal 21.0-32.0 [facility] Comment on above: Performed By: #### C MP ####[facility] [address] [place], [place] [address]Dr. Christopher Lockett Creatinine [Mass/Vol] 0.78 mg/dL Normal 0.55-1.02 [facility] Comment on above: Performed By: #### C MP ####[facility] [address] [id number]. Christopher Lockett EGFR-AF [place] >60 Normal >=60 [facility] Comment on above: Performed By: #### C MP ####[facility] [address] [address]Dr. Christopher Levy EGFR-NON AF [place] R[place] >60 Normal >=60 [facility] Comment on above: Performed By: #### C MP ####[facility] [address] [place], [place] [address]Dr. Christopher Levy Globulin (S) [Mass/Vol] 4.3 g/dL Normal [facility] Comment on above: Performed By: #### C MP ####[facility] [address] [place], [place] [address]Dr. Christopher Levy Glucose [Mass/Vol] 128 mg/dL Critically high 74-106 T [facility] Comment on above: Performed By: #### C MP ####[facility] [address] [place], [place] [address]Dr. Christopher Levy Potassium [Moles/Vol] 3.9 mmol/L Normal 3.5-5.1 [facility] Comment on above: Performed By: #### C MP ####[facility] [address] [place], [place] [address]Dr. Christopher Levy Protein [Mass/Vol] 7.6 g/dL Normal 6.4-8.2 [facility] Comment on above: Performed By: #### C MP ####[facility] [address] [place], [place] [address]Dr. Christopher Levy Sodium [Moles/Vol] 142 mmol/L Normal 136-145 [facility] Comment on above: Performed By: #### C MP ####[facility] [address] [place], [place] [address]Dr. Christopher Lockett Urea nitrogen [Mass/Vol] 7.0 mg/dL Normal 7.0-18.0 [facility] Comment on above: Performed By: #### C MP ####[facility] [address] [place], [place] [address]DrErick Lockett Urea nitrogen/Creatinine [Mass ratio] 8.9 mg/mg Normal [facility] Comment on above: Performed By: #### C MP ####[facility] [address] [address]Dr. Christopher Lockett URINE MICROSCOPIC ONLYon BACTERIA NONE SEEN Normal NONE SEEN [facility] Comment on above: Performed By: #### E RUR, UMICRO #### [facility] [facility] [address] [place] [address] Dr. Christopher Lockett Bacteria identified Cx Nom (U) INDICATED Normal [facility] Comment on above: Performed By: #### E RUR, UMICRO #### [facility] [address] [place] [address] Dr. Christopher Lockett CAST NONE SEEN Normal NONE SEEN [facility] Comment on above: Performed By: #### E RUR, UMICRO #### [facility] [address] [place] [address] Dr. Christopher Lockett Crystals LM Nom (Urine sed) NONE SEEN Normal NONE SEEN [facility] Comment on above: Performed By: #### E RUR, UMICRO #### [facility] [address] [place] [address] Dr. Christopher Lockett Epithelial cells LM Ql (Urine sed) FEW Abnormal NONE SEEN /RARE [facility] Comment on above: Performed By: #### E RUR, UMICRO #### [facility] [address] [place] [address] Dr. Christopher Lockett MUCOUS NONE SEEN Normal NONE SEEN [facility] Comment on above: Performed By: #### E RUR, UMICRO #### [facility] [address] [place] [address] Dr. Christopher Lockett RBC (U) [#/Vol] /uL Abnormal 0-2 [facility] Comment on above: Performed By: #### E RUR, UMICRO #### [facility] [address] [place] [address] Dr. Christopher Lockett WBC 10-20 Abnormal NONE SEEN [facility] Comment on above: Performed By: #### E RUR, UMICRO #### [facility] [address] [address] [address] Christopher Lockett Comprehensive metabolic 2000 panelon 10-28-2021 Albumin [Mass/Vol] 4.6 g/dL 3.2 - 5.2 g/dL [facility] ALP [Catalytic activity/Vol] 160 U/L High 40 - 140 U/L [facility] ALT [Catalytic activity/Vol] 70 U/L High 0 - 40 U/L [facility] Anion gap [Moles/Vol] 18 mmol/L 10 - 20 mmol/L [facility] AST [Catalytic activity/Vol] 51 U/L High 0 - 45 U/L [facility] Bilirubin [Mass/Vol] mg/dL 0.0 - 1.3 mg/dL [facility] Calcium [Mass/Vol] 9.7 mg/dL 8.4 - 10. 2 mg/dL [facility] Chloride [Moles/Vol] 104 mmol/L 98 - 108 mmol/L [facility] Creatinine [Mass/Vol] 0.63 mg/dL 0.40 - 1.10 [facility] GFR/1.73 sq M.predicted CKD-EPI (S/P/Bld) [Vol rate/Area] 113 >=60 mL/min/1.73 m2 [facility] Glucose [Mass/Vol] 132 mg/dL High 65 - 99 mg/dL [facility] HCO3 [Moles/Vol] 24 mmol/L 21 - 32 mmol/L [facility] Interpretation and review of laboratory results Abnormal [facility] Potassium [Moles/Vol] 4.3 mmol/L 3.5 - 5.1 mmol/L [facility] Protein [Mass/Vol] 7.4 g/dL 6.0 - 8.0 g/dL [facility] Sodium [Moles/Vol] 142 mmol/L 135 - 145 mmol/L [facility] Urea nitrogen [Mass/Vol] 10 mg/dL 8 - 25 mg/dL [facility] Urea nitrogen/Creatinine [Mass ratio] 15.9 mg/mg [facility] The eGFR should be u sed for monitoring renal function only and not for medication dosing. [facility] Vitamin D, Total, 25-OHon 25-hydroxyvitamin D [Mass/Vol] 27 ng/mL Low 30 - 100 ng/mL [facility] Comment on above: Vitamin D status: Deficiency: <10 ng/mL Insufficiency: 10-30 ng/mL Sufficiency: 30-100 ng/mL Toxicity: >100 ng/mL Interpretation and review of laboratory results Abnormal [facility] Assay performed beatrice Alvarez CLIA methodology. [facility] HBV Qnt, Molecularon 021 HBV Qnt, Interp Not detected Normal Not Detected [facility] Comment on above: Result Comment: (NOT E) INTERPRETIVE INFORMATION: HBV by Quantitative NAAT Normal range for this assay is Not Detected . The quantitative range of this assay is 1.00-9.00 log IU/mL (10-1,000,000,000 IU/mL). An interpretation of Not Detected does not rule out the presence of inhibitors in the patient specimen or HBV DNA concentration below the level of detection of the test. Care should be taken when interpreting any single viral load determination. This assay should not be used for blood donor screening, associated re-entry protocols, or for screening Human Cell, Tissues and Cellular Tissue-Based Products (HCT/P). Performed By: #### I FX, PE, AHBS, PHEP, FKLLC, ABC #### [address] [address] Kitchen Steward/Stewardess: Lucas Mi MD #### AHBQNT #### [facility] [address], [place] [id number] Kitchen Steward/Stewardess: Ramos Peguero MD #### PT #### [address] [place] [address] Kitchen Steward/Stewardess: Pieter Sadler MD HBV Qnt, IU/mL Not detected Normal [facility] Comment on above: Performed By: #### I FX, PE, AHBS, PHEP, FKLLC, ABC #### [address] [address] Kitchen Steward/Stewardess: Lucas Mi MD #### AHBQNT #### [facility] [address] [place] [address] Kitchen Steward/Stewardess: Ramos Peguero MD #### PT #### [address] [place] [address] Kitchen Steward/Stewardess: Pieter Sadler MD HBV Qnt, Molecular Not detected [facility] Comment on above: Result Comment: (NOT E) Performed by [facility], [address] [place] [id number] [email or web address], Brittany Meléndez MD, Lab. Director Performed By: #### I FX, PE, AHBS, PHEP, FKLLC, ABC #### [address] [id number] Kitchen Steward/Stewardess: Lucas Mi MD #### AHBQNT #### [address] [address] Kitchen Steward/Stewardess: Ramos Peguero MD #### PT #### [address] [place] [address] Kitchen Steward/Stewardess: Pieter Sadler MD Immunofixation,Bloodon 04-16 IFX - Interpret. IMMUNOFIXATION IS NEGATIVE FOR MONOCLONAL IMMUNOGLOBULIN. [facility] Comment on above: Performed By: #### I FX, PE, AHBS, PHEP, FKLLC, ABC #### [address] [id number] Kitchen Steward/Stewardess: Lucas Mi MD #### AHBQNT #### [address] [address] Kitchen Steward/Stewardess: Ramos Peguero MD #### PT #### [address] [place] [address] Kitchen Steward/Stewardess: Pieter Sadler MD Prot. Electroph, Blon 2020 Pathologist Review: ELECTRONICALLY BEV GAYTAN M.D. [facility] Comment on above: Performed By: #### I FX, PE, AHBS, PHEP, FKLLC, ABC #### [address] [address] Kitchen Steward/Stewardess: Lucas Mi MD #### AHBQNT #### [facility] [address] [place] [address] Kitchen Steward/Stewardess: Ramos Peguero MD #### PT #### [facility] [address] [place] [address] Kitchen Steward/Stewardess: Pieter Sadler MD Prot. Elect-Interp NORMAL ELECTROPHORET IC PATTERN Normal [facility] Comment on above: Result Comment: IMMU NOFIXATION IS NEGATIVE FOR MONOCLONAL IMMUNOGLOBULIN. Performed By: #### I FX, PE, AHBS, PHEP, FKLLC, ABC #### [address] [address] Kitchen Steward/Stewardess: Lucas Mi MD #### AHBQNT #### [address] [address] Kitchen Steward/Stewardess: Ramos Peguero MD #### PT #### [facility] [address] [place] [address] Kitchen Steward/Stewardess: Pieter Sadler MD Total Prot. Sum 7.1 g/dL Normal 6.3-8.2 [facility] Comment on above: Performed By: #### I FX, PE, AHBS, PHEP, FKLLC, ABC #### [address] [address] Kitchen Steward/Stewardess: Lucas Mi MD #### AHBQNT #### [facility] [address] [place] [address] Kitchen Steward/Stewardess: Ramos Peguero MD #### PT #### [facility] [address] [place] [address] Kitchen Steward/Stewardess: Pieter Sadler MD Total Prot. Sum,% 100 % Normal 98-102 [facility] Comment on above: Performed By: #### I FX, PE, AHBS, PHEP, FKLLC, ABC #### [id number] [place] [address] Kitchen Steward/Stewardess: Lucas Mi MD #### AHBQNT #### [facility] [address] [place] [address] Kitchen Steward/Stewardess: Ramos Peguero MD #### PT #### [facility] [address] [place] [address] Dr[place], [place] [id number] Kitchen Steward/Stewardess: Pieter Sadler MD Prot. Electroph, Blon 2020 Albumin [Mass/Vol] 4.0 g/dL Normal 3.2-5.2 [facility] Comment on above: Performed By: #### I FX, PE, AHBS, PHEP, FKLLC, ABC #### [address] [address] Kitchen Steward/Stewardess: Lucas Mi MD #### AHBQNT #### [facility] [address] [place], [place] [id number] Kitchen Steward/Stewardess: Ramos Peguero MD #### PT #### [address] [place], [place] [id number] Kitchen Steward/Stewardess: Pieter Sadler MD Albumin, % 56 % Normal 45-65 [facility] Comment on above: Performed By: #### I FX, PE, AHBS, PHEP, FKLLC, ABC #### [address] [address] Kitchen Steward/Stewardess: Lucas Mi MD #### AHBQNT #### [facility] [address], [place] [id number] Kitchen Steward/Stewardess: Ramos Peguero MD #### PT #### [address] [place] [address] Kitchen Steward/Stewardess: Pieter Sadler MD Skhax-6-isyimheoj 0.2 g/dL Normal 0.1-0.4 [facility] Comment on above: Performed By: #### I FX, PE, AHBS, PHEP, FKLLC, ABC #### [facility] [address] [place] [address] Kitchen Steward/Stewardess: Lucas Mi MD #### AHBQNT #### [facility] [address] [place] [address] Kitchen Steward/Stewardess: Ramos Peguero MD #### PT #### [address] [place], [place] [id number] Kitchen Steward/Stewardess: Pieter Sadler MD [id number],% 3 % Normal 3-6 [facility] Comment on above: Performed By: #### I FX, PE, AHBS, PHEP, FKLLC, ABC #### [address] [address] Kitchen Steward/Stewardess: Lucas Mi MD #### AHBQNT #### [facility] [address], [place] [id number] Kitchen Steward/Stewardess: Ramos Peguero MD #### PT #### [address] [place], [place] [id number] Kitchen Steward/Stewardess: Pieter Sadler MD Otqky-2-ywkumoteu 0.8 g/dL Normal 0.5-0.9 [facility] Comment on above: Performed By: #### I FX, PE, AHBS, PHEP, FKLLC, ABC #### [facility] [address] [place] [address] Kitchen Steward/Stewardess: Lucas Mi MD #### AHBQNT #### [facility] [address] [place] [address] Kitchen Steward/Stewardess: Ramos Peguero MD #### PT #### [address] [place], [place] 878[address]83 Kitchen Steward/Stewardess: Pieter Sadler MD Sagop-5-gfusyazuj,% 11 % Normal 6-13 [facility] Comment on above: Performed By: #### I FX, PE, AHBS, PHEP, FKLLC, ABC #### [facility] [address] [place] [address] Kitchen Steward/Stewardess: Lucas Mi MD #### AHBQNT #### [facility] [address] [place] [address] Kitchen Steward/Stewardess: Ramos Peguero MD #### PT #### [address] [place], [place] 1726183 Kitchen Steward/Stewardess: Pieter Sadler MD Beta-globulins 0.9 g/dL Normal 0.5-1.[address] [facility] Comment on above: Performed By: #### I FX, PE, AHBS, PHEP, FKLLC, ABC #### [facility] [address] [place] [address] Kitchen Steward/Stewardess: Lucas Mi MD #### AHBQNT #### [facility] [address], [place] [id number] Kitchen Steward/Stewardess: Ramos Peguero MD #### PT #### [address] [place], [place] [id number] Kitchen Steward/Stewardess: Pieter Sadler MD Beta-globulins,% 13 % Normal 11-19 [facility] Comment on above: Performed By: #### I FX, PE, AHBS, PHEP, FKLLC, ABC #### [facility] [address] [place] [address] Kitchen Steward/Stewardess: Lucas Mi MD #### AHBQNT #### [facility] [address] [place] [address] Kitchen Steward/Stewardess: Ramos Peguero MD #### PT #### [facility] [address] [place], [place] [id number] Kitchen Steward/Stewardess: Pieter Sadler MD Gamma-globulins 1.2 g/dL Normal 0.5-1.5 [facility] Comment on above: Performed By: #### I FX, PE, AHBS, PHEP, FKLLC, ABC #### [address] [address] Kitchen Steward/Stewardess: Lucas Mi MD #### AHBQNT #### [facility] [address] [place] [address] Kitchen Steward/Stewardess: Ramos Peguero MD #### PT #### [address] [place], [place] [id number] Kitchen Steward/Stewardess: Pieter Sadler MD Gamma-globulins,% 17 % Normal 9-20 [facility] Comment on above: Performed By: #### I FX, PE, AHBS, PHEP, FKLLC, ABC #### [address] [address] Kitchen Steward/Stewardess: Lucas Mi MD #### AHBQNT #### [facility] [address] [place] [address] Kitchen Steward/Stewardess: Ramos Peguero MD #### PT #### [address] [place], [place] [id number] Kitchen Steward/Stewardess: Pieter Sadler MD Free [place] + Lambdaon 2020 Free [place] Lt Chains 1.51 mg/dL Normal 0.37-1.94 [facility] Comment on above: Performed By: #### I FX, PE, AHBS, PHEP, FKLLC, ABC #### [address] [address] Kitchen Steward/Stewardess: Lucas Mi MD #### AHBQNT #### [facility] [address] [place], [place] [id number] Kitchen Steward/Stewardess: Ramos Peguero MD #### PT #### [address] [place] [address] Kitchen Steward/Stewardess: Pieter Sadler MD Free [place]/Lambda Rat 0.96 Normal 0.26-1.65 [facility] Comment on above: Performed By: #### I FX, PE, AHBS, PHEP, FKLLC, ABC #### [address] [address] Kitchen Steward/Stewardess: Lucas Mi MD #### AHBQNT #### [facility] [address], [place] [id number] Kitchen Steward/Stewardess: Ramos Peguero MD #### PT #### [address] [place] [address] Kitchen Steward/Stewardess: Pieter Sadler MD Free Lambda Lt Chains 1.57 mg/dL Normal 0.57-2.63 [facility] Comment on above: Performed By: #### I FX, PE, AHBS, PHEP, FKLLC, ABC #### [address] [address] Kitchen Steward/Stewardess: Lucas Mi MD #### AHBQNT #### [facility] [address] [place], [place] [id number] Kitchen Steward/Stewardess: Ramos Peguero MD #### PT #### [address] [place] [address] Kitchen Steward/Stewardess: Pieter Sadler MD Hep B Core Abon 04-14-2021 Hep B Core Ab Non-Reactive Normal NR [facility] Comment on above: Performed By: #### I FX, PE, AHBS, PHEP, FKLLC, ABC #### [address] [address] Kitchen Steward/Stewardess: Lucas Mi MD #### AHBQNT #### [facility] [address] [place] [address] Kitchen Steward/Stewardess: Ramos Peguero MD #### PT #### [address] [place], [place] [id number] Kitchen Steward/Stewardess: Pieter Sadler MD Hep B Surf Abon 04-14-2021 Hep B Surf Ab <3.50 Normal <[address] [facility] Comment on above: Result Comment: REFERENCE RANGE: <10.0 NON-REACTIVE/NOT IMMUNE >=10.0 REACTIVE/IMMUNE Performed By: #### I FX, PE, AHBS, PHEP, FKLLC, ABC #### [address] [address] Kitchen Steward/Stewardess: Lucas Mi MD #### AHBQNT #### [facility] [address] [place] [address] Kitchen Steward/Stewardess: Ramos Peguero MD #### PT #### [address] [place] [address] Kitchen Steward/Stewardess: Pieter Sadler MD Hepatitis Acute [facility] 04-14 Hep A Ab,IgM Non-Reactive Normal NR [facility] Comment on above: Performed By: #### I FX, PE, AHBS, PHEP, FKLLC, ABC #### [address] [address] Kitchen Steward/Stewardess: Lucas Mi MD #### AHBQNT #### [facility] [address] [place] [address] Kitchen Steward/Stewardess: Ramos Peguero MD #### PT #### [address] [place] [address] Kitchen Steward/Stewardess: Pieter Sadler MD Hep B Core Ab,IgM Non-Reactive Normal NR [facility] Comment on above: Performed By: #### I FX, PE, AHBS, PHEP, FKLLC, ABC #### [address] [address] Kitchen Steward/Stewardess: Lucas Mi MD #### AHBQNT #### [facility] [address] [place] [address] Kitchen Steward/Stewardess: Ramos Peguero MD #### PT #### [address] [place] [address] Kitchen Steward/Stewardess: Pieter Sadler MD Hep B Surf Ag Non-Reactive Normal [facility] Comment on above: Performed By: #### I FX, PE, AHBS, PHEP, FKLLC, ABC #### [address] [address] Kitchen Steward/Stewardess: Lucas Mi MD #### AHBQNT #### [facility] [address] [place] [id number] Kitchen Steward/Stewardess: Ramos Peguero MD #### PT #### [address] [place] [address] Kitchen Steward/Stewardess: Pieter Sadler MD Hep C Ab Non-Reactive Normal [facility] Comment on above: Result Comment: The hepatitis C procedure used in [...] recommended by ordering HCV RNA by PCR. Performed By: #### I FX, PE, AHBS, PHEP, FKLLC, ABC #### [address] [address] Kitchen Steward/Stewardess: Lucas Mi MD #### AHBQNT #### [facility] [address] [place] [address] Kitchen Steward/Stewardess: Ramos Peguero MD #### PT #### [facility] [address] [place] [address] Kitchen Steward/Stewardess: Pieter Sadler MD Hepatitis B Core Antibody, T otalOrdered By: [employer] on 04-14-2021 Hep B Core Total Ab Non-Reactive NONREACTIVE [facility] [employer] Work Phone: Hepatitis B Surface Antibody Ordered By: [employer] on 04-14-2021 HBV surface Ab (S) [Titer] <3.50 <10 mIU/mL [facility] [employer] Work Phone: Comment on above: REFERENCE RANGE: <10.0 NON-REACTIVE/NOT IMMUNE >=10.0 REACTIVE/IMMUNE [facility] [employer] Phone: Hepatitis Panel, AcuteOrdere d By: [employer] on 04-14-2021 HAV IgM IA Qn (S) Non-Reactive NONREACTIVE [facility] [employer] Phone: Hep B Core Ab, IgM Non-Reactive NONREACTIVE [facility] [employer] Work Phone: Hepatitis B Surface Ag Non-Reactive NONREACTIVE [facility] [employer] Work Phone: Hepatitis C Ab Non-Reactive NONREACTIVE [facility] Work Phone: Comment on above: The hepatitis C procedure used in our [...] recommended by ordering HCV RNA by PCR. [place]/Lambda Free Lt Chains, Serum QuantOrdered By: [employer] on 04-14-2021 Free [place]/Lambda Ratio 0.96 [facility] Phone: [place] Free Light Chains QNT 1.51 mg/dL 0.37 - 1.94 mg/dL [employer] Phone: Lambda Free Light Chains QNT 1.57 mg/dL 0.57 - 2.63 mg/dL [employer] Phone: [employer] Phone: No Panel InformationOrdered By: Sr House on 04-14-2021 [facility] [employer] Phone: PTon 04-14-2021 INR Coag (PPP) [Relative time] 1.1 {INR} Normal [facility] Comment on above: Result Comment: Non-therapeutic Range: INR = 0.9-1.2 Therapeutic Range: Moderate Anticoagulant Intensity: INR = 2.0-3.0 High Anticoagulant Intensity: INR = 2.5-3.5 Performed By: #### I FX, PE, AHBS, PHEP, FKLLC, ABC #### [facility] [employer] [address] [place] [address] Kitchen Steward/Stewardess: Lucas Mi MD #### AHBQNT #### [facility] [address] [place] [address] Kitchen Steward/Stewardess: Ramos Peguero MD #### PT #### [address] [place] [address] Kitchen Steward/Stewardess: Pieter Sadler MD PT Coag (PPP) [Time] 13.9 s Normal 11.5-14.2 [facility] Comment on above: Performed By: #### I FX, PE, AHBS, PHEP, FKLLC, ABC #### [address] [id number] Kitchen Steward/Stewardess: Lucas Mi MD #### AHBQNT #### [facility] [address] [place] [address] Kitchen Steward/Stewardess: Ramos Peguero MD #### PT #### [address] [place] [address] Kitchen Steward/Stewardess: Pieter Sadler MD Prot. Electroph, Blon 2020 Protein [Mass/Vol] 7.1 g/dL Normal 6.4-8.3 [facility] Comment on above: Performed By: #### I FX, PE, AHBS, PHEP, FKLLC, ABC #### [facility] [address] [place] [address] Kitchen Steward/Stewardess: Lucas Mi MD #### AHBQNT #### [facility] [address] [place] [address] Kitchen Steward/Stewardess: Ramos Peguero MD #### PT #### [facility] [address] [place] [address] Kitchen Steward/Stewardess: Pieter Sadler MD Protime-INROrdered By: Ho use on 04-14-2021 INR Coag (Bld) [Relative time] 1.1 {INR} [employer] Phone: Comment on above: Non-therapeutic Range: INR = 0.9-1.2 Therapeutic Range: Moderate Anticoagulant Intensity: INR = 2.0-3.0 High Anticoagulant Intensity: INR = 2.5-3.5 PT Coag (PPP) [Time] 13.9 s [employer] Phone: [employer] Phone: Hepatic function 2000 panelO rdered By: Bri Kraft on 03-20-2021 Albumin [Mass/Vol] 4.5 g/dL 3.2 - 5.2 g/dL [facility] ALP [Catalytic activity/Vol] 125 U/L 40 - 140 U/L [facility] ALT [Catalytic activity/Vol] 90 U/L High 0 - 40 U/L [facility] AST [Catalytic activity/Vol] 64 U/L High 0 - 45 U/L [facility] Bilirubin [Mass/Vol] 0.3 mg/dL 0.0 - 1.3 mg/dL [facility] Bilirubin.conjugate d [Mass/Vol] mg/dL 0.0 - 0.4 mg/dL [facility] Interpretation and review of laboratory results Abnormal [facility] Protein [Mass/Vol] 7.4 g/dL 6.0 - 8.0 g/dL [facility] LYME DISEASE ANTIBODY, BLOOD Ordered By: Bri Kraft on 03-20-2021 B. burgdorferi Ab Ql (S) Negative Negative [facility] Interpretation and review of laboratory results Normal [facility] Assay performed usin g [employer] CLIA methodology. [facility] No Panel InformationOrdered By: Bri Kraft on 03-20-2021 Interpretation and review of laboratory results Normal [facility] T. pallidum IgG Ql (S)Ordere d By: Bri Kraft on 03-20-2021 Interpretation and review of laboratory results Normal [facility] T. pallidum Ab Ql (S) Negative Negative [facility] [id number] By: Bri acosta 03-20-2021 T3 [Mass/Vol] 167 ng/dL 72 - 170 ng/dL [facility] T3, FreeOrdered By: Bri cummins on 03-20-2021 Free T3 [Mass/Vol] 3.4 pg/mL 2.0 - 4.4 pg/mL [facility] [id number] By: Bri acosta 03-20-2021 T4 [Mass/Vol] 7.0 ug/dL [facility] T4, FreeOrdered By: Bri cummins on 03-20-2021 Free T4 [Mass/Vol] 0.9 ng/dL 0.7 - 1.7 ng/dL [facility] TSH DL <= 0.005 mIU/L QnOrde red By: Bri Kraft on 03-20-2021 TSH Qn 1.28 m[IU]/L [facility] VARICELLA ZOSTER ANTIBODY, I GGOrdered By: Bri Kraft on 03-20-2021 VZV IgG Ql (S) Immune [facility] Assay performed usin g [employer] CLIA methodology. [facility] VITAMIN D, TOTAL, 25-OHOrder ed By: Bri Kraft on 03-20-2021 25-hydroxyvitamin D [Mass/Vol] 24 ng/mL Low 30 - 100 ng/mL [facility] Comment on above: Vitamin D status: Deficiency: <10 ng/mL Insufficiency: 10-30 ng/mL Sufficiency: 30-100 ng/mL Toxicity: >100 ng/mL Interpretation and review of laboratory results Abnormal [facility] Assay performed usin g [employer] CLIA methodology. [facility] Vitamin [id number] By: Franky Kraft on 03-20-2021 Cobalamin (Vitamin B12) [Mass/Vol] 481 pg/mL 232 - 1245 pg/mL [facility] MRI BRAIN W WO CONTRASTon MRI BRAIN W WO CONTRAST EXAMINATION: MRI OF THE BRAIN WITHOUT AND WITH CONTRAST 09/10/2020 2:07 pm TECHNIQUE: Multiplanar multisequence MRI of the head/brain was performed without and with the administration of intravenous contrast. COMPARISON: 12/20/2019 HISTORY: ORDERING SYSTEM PROVIDED HISTORY: MS (multiple sclerosis) ([facility]) TECHNOLOGIST PROVIDED HISTORY: Is the patient ?->No Initial evaluation FINDINGS: INTRACRANIAL STRUCTURES/VENTRICLES: There is no acute infarct. The ventricles and cisternal spaces are normal in size, shape, and configuration for the age of the patient. There are several areas of high signal in the periventricular white matter and centrum semiovale that are consistent with demyelination in a patient with known MS. The appearance of the lesions are essentially stable when compared to the prior study. No obvious new lesions are identified. There are no areas of restricted diffusion. No abnormal areas of enhancement are identified. There is no midline shift or mass effect. ORBITS: The visualized portion of the orbits demonstrate no acute abnormality. SINUSES: The visualized paranasal sinuses and mastoid air cells are clear. BONES/SOFT TISSUES: The bone marrow signal intensity appears normal. The soft tissues demonstrate no acute abnormality. IMPRESSION: Stable areas of high signal in the periventricular white matter consistent with demyelination in a patient with known MS. No abnormal enhancement to suggest active demyelination at this time. No acute brain parenchymal abnormality. Interpreted by: Amparo Hernández MD Signed by: Amparo Hernández MD 09/10/20 Final result Normal [facility] Stable areas of high signal in the periventricular white matter consistent with demyelination in a patient with known MS. No abnormal enhancement to suggest active demyelination at this time. No acute brain parenchymal abnormality. [facility], [place] EXAMINATION: MRI OF THE BRAIN WITHOUT AND WITH CONTRAST 09/10/2020 2:07 pm TECHNIQUE: Multiplanar multisequence MRI of the head/brain was performed without and with the administration of intravenous contrast. COMPARISON: 12/20/2019 HISTORY: ORDERING SYSTEM PROVIDED HISTORY: MS (multiple sclerosis) ([facility]) TECHNOLOGIST PROVIDED HISTORY: Is the patient ?->No Initial evaluation FINDINGS: INTRACRANIAL STRUCTURES/VENTRICLES: There is no acute infarct. The ventricles and cisternal spaces are normal in size, shape, and configuration for the age of the patient. There are several areas of high signal in the periventricular white matter and centrum semiovale that are consistent with demyelination in a patient with known MS. The appearance of the lesions are essentially stable when compared to the prior study. No obvious new lesions are identified. There are no areas of restricted diffusion. No abnormal areas of enhancement are identified. There is no midline shift or mass effect. ORBITS: The visualized portion of the orbits demonstrate no acute abnormality. SINUSES: The visualized paranasal sinuses and mastoid air cells are clear. BONES/SOFT TISSUES: The bone marrow signal intensity appears normal. The soft tissues demonstrate no acute abnormality. [facility] Incoming Radiant Results From [facility] - 09/10/2020 9:55 PM EST EXAMINATION: MRI OF THE BRAIN WITHOUT AND WITH CONTRAST 09/10/2020 2:07 pm TECHNIQUE: Multiplanar multisequence MRI of the head/brain was performed without and with the administration of intravenous contrast. COMPARISON: 12/20/2019 HISTORY: ORDERING SYSTEM PROVIDED HISTORY: MS (multiple sclerosis) ([facility]) TECHNOLOGIST PROVIDED HISTORY: Is the patient ?->No Initial evaluation FINDINGS: INTRACRANIAL STRUCTURES/VENTRICLES: There is no acute infarct. The ventricles and cisternal spaces are normal in size, shape, and configuration for the age of the patient. There are several areas of high signal in the periventricular white matter and centrum semiovale that are consistent with demyelination in a patient with known MS. The appearance of the lesions are essentially stable when compared to the prior study. No obvious new lesions are identified. There are no areas of restricted diffusion. No abnormal areas of enhancement are identified. There is no midline shift or mass effect. ORBITS: The visualized portion of the orbits demonstrate no acute abnormality. SINUSES: The visualized paranasal sinuses and mastoid air cells are clear. BONES/SOFT TISSUES: The bone marrow signal intensity appears normal. The soft tissues demonstrate no acute abnormality. IMPRESSION: Stable areas of high signal in the periventricular white matter consistent with demyelination in a patient with known MS. No abnormal enhancement to suggest active demyelination at this time. No acute brain parenchymal abnormality. [facility] Comp Metabolic Profon 2019 (cont.) Normal [facility] Comment on above: Result Comment: Aver age GFR for 30-39 years old: 107 mL/min/1.73sq m Chronic Kidney Disease: <60 mL/min/1.73sq m Kidney failure: <15 mL/min/1.73sq m eGFR calculated using average adult body mass. Additional eGFR calculator available at: http://www.[employer].rumr/multiple_crcl_2012.htm Performed By: #### I FX, PE, AHBS, PHEP, FKLLC, ABC #### [facility] [address] [place] [address] Kitchen Steward/Stewardess: Lucas Mi MD #### DAVEYQNT #### [facility] [address] [place], [place] [id number] Kitchen Steward/Stewardess: Ramos Peguero MD #### PT #### [address] [place] [address] Kitchen Steward/Stewardess: Pieter Sadler MD Albumin [Mass/Vol] 4.2 g/dL Normal 3.5-5.2 [facility] Comment on above: Performed By: #### I FX, PE, AHBS, PHEP, FKLLC, ABC #### [address] [address] Kitchen Steward/Stewardess: Lucas Mi MD #### AHBQNT #### [facility] [address] [place], [place] [id number] Kitchen Steward/Stewardess: Ramos Peguero MD #### PT #### [address] [place] [address] Kitchen Steward/Stewardess: Pieter Sadler MD Albumin/Glob Ratio 1.3 Normal 1.0-2.5 [facility] Comment on above: Performed By: #### I FX, PE, AHBS, PHEP, FKLLC, ABC #### [address] [address] Kitchen Steward/Stewardess: Lucas Mi MD #### AHBQNT #### [facility] [address] [place], [place] [id number] Kitchen Steward/Stewardess: Ramos Peguero MD #### PT #### [facility] [address] [place], [place] [id number] Kitchen Steward/Stewardess: Pieter Sadler MD Alkaline Phos 130 U/L High 35-[address] [facility] Comment on above: Performed By: #### I FX, PE, AHBS, PHEP, FKLLC, ABC #### [facility] [place] [address] Kitchen Steward/Stewardess: Lucas Mi MD #### AHBQNT #### [facility] [address] [place] [address] Kitchen Steward/Stewardess: Ramos Peguero MD #### PT #### [address] [place], [place] [id number] Kitchen Steward/Stewardess: Pieter Sadler MD ALT [Catalytic activity/Vol] 108 U/L High 5-33 [facility] Comment on above: Performed By: #### I FX, PE, AHBS, PHEP, FKLLC, ABC #### [address] [address] Kitchen Steward/Stewardess: Lucas Mi MD #### AHBQNT #### [facility] [address] [place] [address] Kitchen Steward/Stewardess: Ramos Peguero MD #### PT #### [address] [place], [place] [id number] Kitchen Steward/Stewardess: Pieter Sadler MD Anion gap [Moles/Vol] 12 mmol/L Normal 9-17 [facility] Comment on above: Performed By: #### I FX, PE, AHBS, PHEP, FKLLC, ABC #### [facility] [address] [place] [address] Kitchen Steward/Stewardess: Lucas Mi MD #### AHBQNT #### [facility] [address] [place], [place] [id number] Kitchen Steward/Stewardess: Ramos Peguero MD #### PT #### [facility] [address] [place] [address] [place] [address] Kitchen Steward/Stewardess: Pieter Sadler MD AST [Catalytic activity/Vol] 83 U/L High <32 [facility] Comment on above: Performed By: #### I FX, PE, AHBS, PHEP, FKLLC, ABC #### [facility] [address] [place] [address] Kitchen Steward/Stewardess: Lucas Mi MD #### AHBQNT #### [facility] [address] [place], [place] [id number] Kitchen Steward/Stewardess: Ramos Peguero MD #### PT #### [address] [place] [address] Kitchen Steward/Stewardess: Pieter Sadler MD Bilirubin [Mass/Vol] 0.26 mg/dL Low 0.3-1.2 [facility] Comment on above: Performed By: #### I FX, PE, AHBS, PHEP, FKLLC, ABC #### [facility] [address] [place] [address] Kitchen Steward/Stewardess: Lucas Mi MD #### AHBQNT #### [facility] [address] [place], [place] [id number] Kitchen Steward/Stewardess: Ramos Peguero MD #### PT #### [address] [place] [address] Kitchen Steward/Stewardess: Pieter Sadler MD BUN/CRE Ratio 12 Normal 9-[address] [facility] Comment on above: Performed By: #### I FX, PE, AHBS, PHEP, FKLLC, ABC #### [facility] [address] [place] [address] Kitchen Steward/Stewardess: Lucas Mi MD #### AHBQNT #### [facility] [address] [place] [address] Kitchen Steward/Stewardess: Ramos Peguero MD #### PT #### [facility] [address] [place] [address] [address] [place], [place] [id number] Kitchen Steward/Stewardess: Pieter Sadler MD Calcium [Mass/Vol] 9.4 mg/dL Normal 8.6-10.4 [facility] Comment on above: Performed By: #### I FX, PE, AHBS, PHEP, FKLLC, ABC #### [address] [address] Kitchen Steward/Stewardess: Lucas Mi MD #### AHBQNT #### [facility] [address] [place] [address] Kitchen Steward/Stewardess: Ramos Peguero MD #### PT #### [address] [place] [id number] Kitchen Steward/Stewardess: Pieter Sadler MD Chloride [Moles/Vol] 98 mmol/L Normal 98-107 [facility] Comment on above: Performed By: #### I FX, PE, AHBS, PHEP, FKLLC, ABC #### [address] [address] Kitchen Steward/Stewardess: Lucas Mi MD #### AHBQNT #### [facility] [address] [place] [address] Kitchen Steward/Stewardess: Ramos Peguero MD #### PT #### [address] [place], [place] [id number] Kitchen Steward/Stewardess: Pieter Sadler MD CO2 [Moles/Vol] 29 mmol/L Normal 20-31 [facility] Comment on above: Performed By: #### I FX, PE, AHBS, PHEP, FKLLC, ABC #### [address] [address] Kitchen Steward/Stewardess: Lucas Mi MD #### AHBQNT #### [facility] [address] [place] [address] Kitchen Steward/Stewardess: Ramos Peguero MD #### PT #### [facility] [address] [place] [address] [address] [place], [place] [id number] Kitchen Steward/Stewardess: Pieter Sadler MD Creatinine [Mass/Vol] 0.50 mg/dL Normal 0.50-0.90 [facility] Comment on above: Performed By: #### I FX, PE, AHBS, PHEP, FKLLC, ABC #### [facility] [address] [place] [address] Kitchen Steward/Stewardess: Lucas Mi MD #### AHBQNT #### [facility] [address] [place] [address] Kitchen Steward/Stewardess: Ramos Peguero MD #### PT #### [facility] [address] [place] [address] [address] [place], [place] [id number] Kitchen Steward/Stewardess: Pieter Sadler MD GFR, Amer >60 Normal >60 [facility] Comment on above: Performed By: #### I FX, PE, AHBS, PHEP, FKLLC, ABC #### [facility] [address] [place] [address] Kitchen Steward/Stewardess: Lucas Mi MD #### AHBQNT #### [facility] [address] [place] [address] Kitchen Steward/Stewardess: Ramos Peguero MD #### PT #### [address] [place] [address] Kitchen Steward/Stewardess: Pieter Sadler MD GFR,non Amer >60 Normal >60 [facility] Comment on above: Performed By: #### I FX, PE, AHBS, PHEP, FKLLC, ABC #### [facility] [address] [place] [address] Kitchen Steward/Stewardess: Lucas Mi MD #### AHBQNT #### [facility] [address] [place], [place] [id number] Kitchen Steward/Stewardess: Ramos Peguero MD #### PT #### [address] [place], [place] [id number] Kitchen Steward/Stewardess: Pieter Sadler MD Glucose [Mass/Vol] 124 mg/dL High 70-99 [facility] Comment on above: Performed By: #### I FX, PE, AHBS, PHEP, FKLLC, ABC #### [facility] [address] [place] [id number] Kitchen Steward/Stewardess: Lucas Mi MD #### AHBQNT #### [facility] [address] [place], [place] [id number] Kitchen Steward/Stewardess: Ramos Peguero MD #### PT #### [address] [place] [address] Kitchen Steward/Stewardess: Pieter Sadler MD Potassium [Moles/Vol] 4.7 mmol/L Normal 3.7-5.3 [facility] Comment on above: Performed By: #### I FX, PE, AHBS, PHEP, FKLLC, ABC #### [address] [address] Kitchen Steward/Stewardess: Lucas Mi MD #### AHBQNT #### [facility] [address] [place], [place] [id number] Kitchen Steward/Stewardess: Ramos Peguero MD #### PT #### [address] [place] [address] Kitchen Steward/Stewardess: Pieter Sadler MD Protein [Mass/Vol] 7.4 g/dL Normal 6.4-8.3 [facility] Comment on above: Performed By: #### I FX, PE, AHBS, PHEP, FKLLC, ABC #### [address] [address] Kitchen Steward/Stewardess: uLcas Mi MD #### AHBQNT #### [facility] [address] [place], [place] [id number] Kitchen Steward/Stewardess: Ramos Peguero MD #### PT #### [address] [place], [place] [id number] Kitchen Steward/Stewardess: Pieter Sadler MD Sodium [Moles/Vol] 139 mmol/L Normal 135-144 [facility] Comment on above: Performed By: #### I FX, PE, AHBS, PHEP, FKLLC, ABC #### [address] [address] Kitchen Steward/Stewardess: Lucas Mi MD #### AHBQNT #### [facility] [address] [place] [address] Kitchen Steward/Stewardess: Ramos Peguero MD #### PT #### [address] [place] [address] Kitchen Steward/Stewardess: Pieter Sadler MD Staging: Normal [facility] Comment on above: Result Comment: Stag e 1: Some kidney damage normal GFR Stage 2: Mild kidney damage GFR 60-89 Stage 3: Moderate kidney damage GFR 30-59 Stage 4: Severe kidney damage GFR 15-29 Stage 5: Severe kidney damage GFR <15 ESRD - chronic treatment by dialysis or transplant Performed By: #### I FX, PE, AHBS, PHEP, FKLLC, ABC #### [address] [address] Kitchen Steward/Stewardess: Lucas Mi MD #### AHBQNT #### [facility] [address] [place] [address] Kitchen Steward/Stewardess: Ramos Peguero MD #### PT #### [address] [place] [address] Kitchen Steward/Stewardess: Pieter Sadler MD Urea nitrogen [Mass/Vol] 6 mg/dL Normal 6-20 [facility] Comment on above: Performed By: #### I FX, PE, AHBS, PHEP, FKLLC, ABC #### [facility] [address] [place] [address] Kitchen Steward/Stewardess: Lucas Mi MD #### AHBQNT #### [facility] [address] [place] [address] Kitchen Steward/Stewardess: Ramos Peguero MD #### PT #### [facility] [address] [place] [address] Kitchen Steward/Stewardess: Pieter Sadler MD Comprehensive Metabolic Pane [facility] 06-27-2020 Albumin [Mass/Vol] 4.2 g/dL 3.5 - 5.2 g/dL [place], [place] Albumin/Globulin [Mass ratio] 1.3 {ratio} [place] ALP [Catalytic activity/Vol] 130 U/L High 35 - 104 U/L [place] ALT [Catalytic activity/Vol] 108 U/L High 5 - 33 U/L [place] Anion gap [Moles/Vol] 12 mmol/L 9 - 17 mmol/L [place] AST [Catalytic activity/Vol] 83 U/L High <32 [place] Bilirubin Ql (U) 0.26 mg/dL Low 0.3 - 1.2 mg/dL [place] Bun/Cre Ratio 12 [place] Calcium [Mass/Vol] 9.4 mg/dL 8.6 - 10. 4 mg/dL [place] Chloride [Moles/Vol] 98 mmol/L 98 - 107 mmol/L [place] CO2 [Moles/Vol] 29 mmol/L 20 - 31 mmol/L [place] Creatinine [Mass/Vol] 0.5 mg/dL 0.5 - 0.9 mg/dL [place] GFR >60 >60 mL/min [place] GFR Non- >60 >60 mL/min [place] Glucose [Mass/Vol] 124 mg/dL High 70 - 99 mg/dL [place] Interpretation and review of laboratory results Abnormal [place] Potassium [Moles/Vol] 4.7 mmol/L 3.7 - 5.3 mmol/L [place] Protein [Mass/Vol] 7.4 g/dL 6.4 - 8.3 g/dL [place] Sodium [Moles/Vol] 139 mmol/L 135 - 144 mmol/L [place] Urea nitrogen [Mass/Vol] 6 mg/dL 6 - 20 mg/dL [place] MRI LUMBAR SPINE WO CONTRAST on 06-27-2020 MRI LUMBAR SPINE WO CONTRAST EXAMINATION: MRI OF THE LUMBAR SPINE WITHOUT CONTRAST, 06/27/2020 9:28 am TECHNIQUE: Multiplanar multisequence MRI of the lumbar spine was performed without the administration of intravenous contrast. COMPARISON: None. HISTORY: ORDERING SYSTEM PROVIDED HISTORY: Weakness of both lower extremities TECHNOLOGIST PROVIDED HISTORY: Is the patient ?->No FINDINGS: BONES/ALIGNMENT: The vertebral body heights are maintained. There is age-appropriate bone marrow signal. The disc spaces are maintained. There is no disc space narrowing. There is no spondylolisthesis. SPINAL CORD: The conus medullaris is normal in caliber and signal and terminates at the L1 level. The cauda equina is unremarkable. SOFT TISSUES: The posterior paraspinal soft tissues are unremarkable. The visualized abdominal structures are unremarkable. L1-L2: There is no significant disc herniation, spinal canal stenosis or neural foraminal narrowing. L2-L3: There is no significant disc herniation, spinal canal stenosis or neural foraminal narrowing. L3-L4: There is no significant disc herniation, spinal canal stenosis or neural foraminal narrowing. L4-L5: There is no significant disc herniation, spinal canal stenosis or neural foraminal narrowing. L5-S1: There is no significant disc herniation, spinal canal stenosis or neural foraminal narrowing. IMPRESSION: Unremarkable lumbar spine MRI. Interpreted by: Williams Whitney MD Signed by: Williams Whitney MD 06/27/20 Final result Normal [facility] Unremarkable lumbar spine MRI. [place] EXAMINATION: MRI OF THE LUMBAR SPINE WITHOUT CONTRAST, 06/27/2020 9:28 am TECHNIQUE: Multiplanar multisequence MRI of the lumbar spine was performed without the administration of intravenous contrast. COMPARISON: None. HISTORY: ORDERING SYSTEM PROVIDED HISTORY: Weakness of both lower extremities TECHNOLOGIST PROVIDED HISTORY: Is the patient ?->No FINDINGS: BONES/ALIGNMENT: The vertebral body heights are maintained. There is age-appropriate bone marrow signal. The disc spaces are maintained. There is no disc space narrowing. There is no spondylolisthesis. SPINAL CORD: The conus medullaris is normal in caliber and signal and terminates at the L1 level. The cauda equina is unremarkable. SOFT TISSUES: The posterior paraspinal soft tissues are unremarkable. The visualized abdominal structures are unremarkable. L1-L2: There is no significant disc herniation, spinal canal stenosis or neural foraminal narrowing. L2-L3: There is no significant disc herniation, spinal canal stenosis or neural foraminal narrowing. L3-L4: There is no significant disc herniation, spinal canal stenosis or neural foraminal narrowing. L4-L5: There is no significant disc herniation, spinal canal stenosis or neural foraminal narrowing. L5-S1: There is no significant disc herniation, spinal canal stenosis or neural foraminal narrowing. [place] [facility], [facility] Incoming Radiant Results From [facility] - 06/27/2020 10:25 AM EDT EXAMINATION: MRI OF THE LUMBAR SPINE WITHOUT CONTRAST, 06/27/2020 9:28 am TECHNIQUE: Multiplanar multisequence MRI of the lumbar spine was performed without the administration of intravenous contrast. COMPARISON: None. HISTORY: ORDERING SYSTEM PROVIDED HISTORY: Weakness of both lower extremities TECHNOLOGIST PROVIDED HISTORY: Is the patient ?->No FINDINGS: BONES/ALIGNMENT: The vertebral body heights are maintained. There is age-appropriate bone marrow signal. The disc spaces are maintained. There is no disc space narrowing. There is no spondylolisthesis. SPINAL CORD: The conus medullaris is normal in caliber and signal and terminates at the L1 level. The cauda equina is unremarkable. SOFT TISSUES: The posterior paraspinal soft tissues are unremarkable. The visualized abdominal structures are unremarkable. L1-L2: There is no significant disc herniation, spinal canal stenosis or neural foraminal narrowing. L2-L3: There is no significant disc herniation, spinal canal stenosis or neural foraminal narrowing. L3-L4: There is no significant disc herniation, spinal canal stenosis or neural foraminal narrowing. L4-L5: There is no significant disc herniation, spinal canal stenosis or neural foraminal narrowing. L5-S1: There is no significant disc herniation, spinal canal stenosis or neural foraminal narrowing. IMPRESSION: Unremarkable lumbar spine MRI. [place] Metabolic Panelon 06-27-2020 GFR/1.73 sq M predicted among non-blacks MDRD (S/P/Bld) [Vol rate/Area] [place] Comment on above: Average GFR for 30-3 9 years old: 107 mL/min/1.73sq m Chronic Kidney Disease: <60 mL/min/1.73sq m Kidney failure: <15 mL/min/1.73sq m eGFR calculated using average adult body mass. Additional eGFR calculator available at: http://www.[employer]/multiple_crcl_2012.htm Stage 1: Some kidney damage normal GFR Stage 2: Mild kidney damage GFR 60-89 Stage 3: Moderate kidney damage GFR 30-59 Stage 4: Severe kidney damage GFR 15-29 Stage 5: Severe kidney damage GFR <15 ESRD - chronic treatment by dialysis or transplant MRI BRAIN W WO CONTRASTon There are a few area s of high signal in the periventricular white matter consistent with demyelination in a patient with known multiple sclerosis. There does not appear to be a significant change in the findings when compared to the prior study. There is no restricted diffusion or abnormal enhancement to suggest active demyelination at this time. No acute intracranial abnormality. No obvious abnormality of the orbits. No abnormal enhancement to confirm optic neuritis at this time. [place] EXAMINATION: MRI OF THE BRAIN WITHOUT AND WITH CONTRAST 12/20/2019 1:02 pm TECHNIQUE: Multiplanar multisequence MRI of the head/brain was performed without and with the administration of intravenous contrast. COMPARISON: 04/02/2019 HISTORY: ORDERING SYSTEM PROVIDED HISTORY: Enlarged blind spot of right eye TECHNOLOGIST PROVIDED HISTORY: Is the patient ?->No Initial evaluation FINDINGS: INTRACRANIAL STRUCTURES/VENTRICLES: There is no acute infarct. The ventricles and cisternal spaces are normal in size, shape, and configuration for the age of the patient. There are several areas of high signal in the periventricular white matter and centrum semiovale that are consistent with demyelination in a patient with known multiple sclerosis. There are no areas of restricted diffusion or abnormal enhancement to suggest active demyelination at this time. Images through the orbits reveal no abnormality of the visualized globes. The rectus muscles are symmetric bilaterally. The optic nerves appear symmetric. There is no abnormal enhancement to suggest optic neuritis at this time. SINUSES: The visualized paranasal sinuses and mastoid air cells are clear. BONES/SOFT TISSUES: The bone marrow signal intensity appears normal. The soft tissues demonstrate no acute abnormality. [email or web address] [facility], pn Incoming Radiant Results From [facility] - 12/20/2019 6:18 PM EDT EXAMINATION: MRI OF THE BRAIN WITHOUT AND WITH CONTRAST 12/20/2019 1:02 pm TECHNIQUE: Multiplanar multisequence MRI of the head/brain was performed without and with the administration of intravenous contrast. COMPARISON: 04/02/2019 HISTORY: ORDERING SYSTEM PROVIDED HISTORY: Enlarged blind spot of right eye TECHNOLOGIST PROVIDED HISTORY: Is the patient ?->No Initial evaluation FINDINGS: INTRACRANIAL STRUCTURES/VENTRICLES: There is no acute infarct. The ventricles and cisternal spaces are normal in size, shape, and configuration for the age of the patient. There are several areas of high signal in the periventricular white matter and centrum semiovale that are consistent with demyelination in a patient with known multiple sclerosis. There are no areas of restricted diffusion or abnormal enhancement to suggest active demyelination at this time. Images through the orbits reveal no abnormality of the visualized globes. The rectus muscles are symmetric bilaterally. The optic nerves appear symmetric. There is no abnormal enhancement to suggest optic neuritis at this time. SINUSES: The visualized paranasal sinuses and mastoid air cells are clear. BONES/SOFT TISSUES: The bone marrow signal intensity appears normal. The soft tissues demonstrate no acute abnormality. IMPRESSION: There are a few areas of high signal in the periventricular white matter consistent with demyelination in a patient with known multiple sclerosis. There does not appear to be a significant change in the findings when compared to the prior study. There is no restricted diffusion or abnormal enhancement to suggest active demyelination at this time. No acute intracranial abnormality. No obvious abnormality of the orbits. No abnormal enhancement to confirm optic neuritis at this time. [email or web address] Specimen Rejectionon 019 Reason for rejection Unable to perform testing: Specimen quantity not sufficient. Normal [facility] Comment on above: Result Comment: SERU M Performed By: #### V ALPFT #### [address] [id number] Kitchen Steward/Stewardess: Lucas Mi MD Source of sample .BLOOD Normal [facility] Comment on above: Performed By: #### V ALPFT #### [address] [id number] Kitchen Steward/Stewardess: Lucas Mi MD Test ordered OLIG [facility] Comment on above: Performed By: #### V ALPFT #### [address] [id number] Kitchen Steward/Stewardess: Lucas Mi MD Myelin Basic Prot,CFon 04-05 Myelin Basic Prot,CF 0.34 ng/mL Normal 0.00-5.50 [facility] Comment on above: Result Comment: (NOT E) INTERPRETIVE INFORMATION: Myelin Basic Protein Test developed and characteristics determined by [facility]. See Compliance Statement D: [employer]rum[employer]/CS Performed by [facility], [address] [place] [id number] [email or web address], Ramos Peguero MD, Lab. Director Performed By: #### V ALPFT #### [address] [id number] Kitchen Steward/Stewardess: Lucas Mi MD APTTon 04-04-2019 aPTT Coag (Bld) [Time] 28.8 s Normal 20.5-30.5 [facility] Comment on above: Performed By: #### V ALPFT #### [address] [id number] Kitchen Steward/Stewardess: Lucas Mi MD Basic Metab w/rfx MGon 04-04 (cont.) [facility] Comment on above: Result Comment: Aver age GFR for 30-39 years old: 107 mL/min/1.73sq m Chronic Kidney Disease: <60 mL/min/1.73sq m Kidney failure: <15 mL/min/1.73sq m eGFR calculated using average adult body mass. Additional eGFR calculator available at: http://www.[employer]/multiple_crcl_2012.htm Performed By: #### C DP, BMPX #### [facility] [employer] [address] [place] [address] Kitchen Steward/Stewardess: Lucas Mi MD Anion gap [Moles/Vol] 13 mmol/L Normal 9-17 [facility] Comment on above: Performed By: #### C DP, BMPX #### [facility] [employer] [address] [place] [address] Kitchen Steward/Stewardess: Lucas Mi MD Calcium [Mass/Vol] 9.0 mg/dL Normal 8.6-10.4 [facility] Comment on above: Performed By: #### C DP, BMPX #### [facility] [employer] [address] [place] [address] Kitchen Steward/Stewardess: Lucas Mi MD Chloride [Moles/Vol] 101 mmol/L Normal 98-107 [facility] Comment on above: Performed By: #### C DP, BMPX #### [facility] [employer] [address] [place] [address] Kitchen Steward/Stewardess: Lucas Mi MD CO2 [Moles/Vol] 24 mmol/L Normal 20-31 [facility] Comment on above: Performed By: #### C DP, BMPX #### [facility] [employer] [address] [place] [address] Kitchen Steward/Stewardess: Lucas Mi MD Creatinine [Mass/Vol] 0.47 mg/dL Low 0.50-0.90 [facility] Comment on above: Performed By: #### C DP, BMPX #### [facility] [employer] [address] [place] [address] Kitchen Steward/Stewardess: Lucas Mi MD GFR, Amer >60 Normal >60 [facility] Comment on above: Performed By: #### C DP, BMPX #### [address] [address] Kitchen Steward/Stewardess: Lucas Mi MD GFR,non Amer >60 Normal >60 [facility] Comment on above: Performed By: #### C DP, BMPX #### [facility] [employer] [address] [place] [address] Kitchen Steward/Stewardess: Lucas Mi MD Glucose [Mass/Vol] 127 mg/dL High 70-99 [facility] Comment on above: Performed By: #### C DP, BMPX #### [address] [address] Kitchen Steward/Stewardess: Lucas Mi MD Potassium [Moles/Vol] 4.4 mmol/L Normal 3.7-5.3 [facility] Comment on above: Performed By: #### C DP, BMPX #### [address] [address] Kitchen Steward/Stewardess: Lucas Mi MD Sodium [Moles/Vol] 138 mmol/L Normal 135-144 [facility] Comment on above: Performed By: #### C DP, BMPX #### [facility] [employer] [address] [place] [address] Kitchen Steward/Stewardess: Lucas Mi MD Urea nitrogen [Mass/Vol] 12 mg/dL Normal 6-20 [facility] Comment on above: Performed By: #### C DP, BMPX #### [facility] [employer] [address] [place] [address] Kitchen Steward/Stewardess: Lucas Mi MD BUN/CRE Ratio NOT REPORTED Normal 9-20 [facility] Comment on above: Performed By: #### C DP, BMPX #### [address] [address] Kitchen Steward/Stewardess: Lucas Mi MD Staging: NOT REPORTED Normal [facility] Comment on above: Performed By: #### C DP, BMPX #### [address] [address] Kitchen Steward/Stewardess: Lucas Mi MD CBC with Diffon 04-04-2019 Abs. Basophil 0.05 k/uL Normal 0.00-0.20 [facility] Comment on above: Performed By: #### C DP, BMPX #### [place] [address] Kitchen Steward/Stewardess: Lucas Mi MD Abs.Imm.Granulocyte <0.03 Normal 0.00-0.30 [facility] Comment on above: Performed By: #### C DP, BMPX #### [place] [address] Kitchen Steward/Stewardess: Lucas Mi MD Abs.Neutrophil (Seg) 3.93 k/uL Normal 1.50-8.10 [facility] Comment on above: Performed By: #### C DP, BMPX #### [address] [address] Kitchen Steward/Stewardess: Lucas Mi MD Basophils/100 WBC (Bld) 1 % Normal 0-2 [facility] Comment on above: Performed By: #### C DP, BMPX #### [address] [address] Kitchen Steward/Stewardess: Lucas Mi MD Eosinophils (Bld) [#/Vol] 0.21 10*3/uL Normal 0.00-0.44 [facility] Comment on above: Performed By: #### C DP, BMPX #### [address] [address] Kitchen Steward/Stewardess: Lucas Mi MD Eosinophils/100 WBC (Bld) 3 % Normal 1-4 [facility] Comment on above: Performed By: #### C DP, BMPX #### [facility] [employer] [address] [place] [address] Kitchen Steward/Stewardess: Lucas iM MD Erythrocyte distribution width (RBC) [Ratio] 13.8 % Normal 11.8-14.4 [facility] Comment on above: Performed By: #### C DP, BMPX #### [facility] [employer] [address] [place] [address] Kitchen Steward/Stewardess: Lucas Mi MD Hematocrit (Bld) [Volume fraction] 42.2 % Normal 36.3-47.1 [facility] Comment on above: Performed By: #### C DP, BMPX #### [facility] [employer] [address] [place] [address] Kitchen Steward/Stewardess: Lucas Mi MD Hemoglobin (Bld) [Mass/Vol] 13.2 g/dL Normal 11.9-15.1 [facility] Comment on above: Performed By: #### C DP, BMPX #### [address] [address] Kitchen Steward/Stewardess: Lucas Mi MD Immature granulocytes (Bld) [#/Vol] 0 % Normal 0 [facility] Comment on above: Performed By: #### C DP, BMPX #### [address] [address] Kitchen Steward/Stewardess: Lucas Mi MD Lymphocytes (Bld) [#/Vol] 3.07 10*3/uL Normal 1.10-3.70 [facility] Comment on above: Performed By: #### C DP, BMPX #### [facility] [employer] [address] [place] [address] Kitchen Steward/Stewardess: Lucas Mi MD Lymphocytes/100 WBC (Bld) 39 % Normal 24-43 [facility] Comment on above: Performed By: #### C DP, BMPX #### [address] [address] Kitchen Steward/Stewardess: Lucas Mi MD MCH (RBC) [Entitic mass] 27.3 pg Normal 25.2-33.5 [facility] Comment on above: Performed By: #### C DP, BMPX #### [place] [address] Kitchen Steward/Stewardess: Lucas Mi MD MCHC (RBC) [Mass/Vol] 31.3 g/dL Normal 28.4-34.8 [facility] Comment on above: Performed By: #### C DP, BMPX #### [place] [address] Kitchen Steward/Stewardess: Lucas Mi MD MCV (RBC) [Entitic vol] 87.2 fL Normal 82.6-102.9 [facility] Comment on above: Performed By: #### C DP, BMPX #### [place] [address] Kitchen Steward/Stewardess: Lucas Mi MD Monocytes (Bld) [#/Vol] 0.70 10*3/uL Normal 0.10-1.20 [facility] Comment on above: Performed By: #### C DP, BMPX #### [place] [address] Kitchen Steward/Stewardess: Lucas Mi MD Monocytes/100 WBC (Bld) 9 % Normal 3-12 [facility] Comment on above: Performed By: #### C DP, BMPX #### [address] [address] Kitchen Steward/Stewardess: Lucas Mi MD Neutrophil (Seg) 48 % Normal 36-65 [facility] Comment on above: Performed By: #### C DP, BMPX #### [address] [address] Kitchen Steward/Stewardess: Lucas Mi MD NRBC Automated 0.0 per 100 WBC Normal 0.0 [facility] Comment on above: Performed By: #### C DP, BMPX #### [address] [address] Kitchen Steward/Stewardess: Lucas Mi MD Platelet mean volume (Bld) [Entitic vol] 8.8 fL Normal 8.1-13.5 [facility] Comment on above: Performed By: #### C DP, BMPX #### [address] [address] Kitchen Steward/Stewardess: Lucas Mi MD Platelets (Bld) [#/Vol] 299 10*3/uL Normal 138-453 [facility] Comment on above: Performed By: #### C DP, BMPX #### [address] [address] Kitchen Steward/Stewardess: Lucas Mi MD RBC (Bld) [#/Vol] 4.84 10*6/uL Normal 3.95-5.11 [facility] Comment on above: Performed By: #### C DP, BMPX #### [address] [address] Kitchen Steward/Stewardess: Lucas Mi MD WBC (Bld) [#/Vol] 8.0 10*3/uL Normal 3.5-11.3 [facility] Comment on above: Performed By: #### C DP, BMPX #### [address] [address] Kitchen Steward/Stewardess: Lucas Mi MD Auto Diff Performed NOT REPORTED Normal [facility] Comment on above: Performed By: #### C DP, BMPX #### [address] [address] Kitchen Steward/Stewardess: Lucas Mi MD Platelets (Bld) [#/Vol] NOT REPORTED Normal [facility] Comment on above: Performed By: #### C DP, BMPX #### [address] [address] Kitchen Steward/Stewardess: Lucas Mi MD RBC morphology finding Nom (Bld) NOT REPORTED Normal [facility] Comment on above: Performed By: #### C DP, BMPX #### [address] [address] Kitchen Steward/Stewardess: Lucas Mi MD WBC Morphology NOT REPORTED Normal [facility] Comment on above: Performed By: #### C DP, BMPX #### [address] [address] Kitchen Steward/Stewardess: Lucas Mi MD CSF Cell Counton 04-04-2019 Appearance (U) CLEAR Normal [facility] Comment on above: Performed By: #### V ALPFT #### [address] [address] Kitchen Steward/Stewardess: Lucas Mi MD RBC (Bld) [#/Vol] 10 /mm3 High 0 [facility] Comment on above: Performed By: #### V ALPFT #### [address] [address] Kitchen Steward/Stewardess: Lucas Mi MD Tube Number 3 Normal [facility] Comment on above: Performed By: #### V ALPFT #### [address] [address] Kitchen Steward/Stewardess: Lucas Mi MD WBC (Bld) [#/Vol] 2 /mm3 Normal <5 [facility] Comment on above: Performed By: #### V ALPFT #### [address] [address] Kitchen Steward/Stewardess: Lucas Mi MD Xanthochromia ABSENT Normal [facility] Comment on above: Performed By: #### V ALPFT #### [facility] [employer] [address] [place] [address] [phone] Kitchen Steward/Stewardess: Lucas Mi MD Color (U) NOT REPORTED Normal [facility] Comment on above: Performed By: #### V ALPFT #### [facility] [address] [place] [address] [id number] Kitchen Steward/Stewardess: Lucas Mi MD Volume 7.5 Normal [facility] Comment on above: Performed By: #### V ALPFT #### [address] [id number] Kitchen Steward/Stewardess: Lucas Mi MD Glucose,CSFon 04-04-2019 Glucose [Mass/Vol] 73 mg/dL High 40-70 [facility] Comment on above: Performed By: #### V ALPFT #### [address] [id number] Kitchen Steward/Stewardess: Lucas Mi MD Histology [facility] 04-04 Histology [facility] (NOTE) [id number] [facility] CONSULTING PATHOLOGISTS [facility] ANATOMIC PATHOLOGY [address] [place] [id number] NONGYNECOLOGICAL CYTOPATHOLOGY CONSULTATION Patient Name: ODESSA IRELAND [facility] Rec: [id number] Path Number: [id number] Collected: 04/04/2019 Received: 04/04/2019 Reported: 04/04/2019 14:41 -- Diagnosis -- CEREBROSPINAL FLUID: NEGATIVE FOR MALIGNANCY. Michael Feliciano Electronically Signed Out rdd/04/04/2019 Clinical Information No information given. Source of Specimen 1: CEREBROSPINAL FLUID Gross Description CSF #4 3.0 ml. colorless fluid in tube #4. MICROSCOPIC DESCRIPTION Pap stained Thin Prep and Castillo-Giemsa stained cytospin preps show rare mature lymphocytes and monocytes. There are no malignant cells. Normal [facility] Comment on above: Performed By: #### V ALPFT #### [employer] [address] [place] [address] [phone] Kitchen Steward/Stewardess: Lucas Mi MD IR LUMBAR PUNCTURE FOR DIAGN OSISon 04-04-2019 IR LUMBAR PUNCTURE FOR DIAGNOSIS EXAMINATION: FLUOROSCOPIC GUIDED LUMBAR PUNCTURE 04/04/2019 8:22 am HISTORY: ORDERING SYSTEM PROVIDED HISTORY: clay carman PROVIDED HISTORY: diagnostic Seizure, possible MS FLUOROSCOPY DOSE AND TYPE OR TIME AND EXPOSURES: 0.5 minute; D AP 210 cGy cm2 PROCEDURE: CORRECTIONS OFFICER: Emiliano Guaman MD Informed consent was obtained after the risks and benefits of the procedure were discussed with the patient and all questions were answered fully. Iola protocol was observed and a standard timeout was performed. The patient was positioned prone and the back was prepped and draped in the normal sterile fashion. 1% lidocaine was used for local anesthesia. The subarachnoid space was accessed with a 22-gauge 4-3/4 spinal needle at the L4 level. Free flow of clear CSF was noted. Approximately 9.5 ml of CSF was removed and sent for analysis. The stylet was reinserted, spinal needle was removed and brief pressure was applied at the puncture site. There were no immediate complications and the patient tolerated the procedure well. IMPRESSION: Successful fluoroscopic-guided lumbar puncture. Interpreted by: Emiliano Guaman MD Signed by: Emiliano Guaman MD 04/04/19 Final result Normal [facility] Non-[employer] Radio Operator Cytologyon 9 Case No: [id number] Normal [facility] Comment on above: Performed By: #### V ALPFT #### [employer] [address] [place] [address] [id number] Kitchen Steward/Stewardess: Lucas Mi MD Specimen Description .CSF Normal [facility] Comment on above: Performed By: #### V ALPFT #### [employer] [address] [place] [address] Kitchen Steward/Stewardess: Lucas Mi MD Oligoclonal Band Profileon 0 04-04-2019 Albumin Index - CSF 37.3 High <9.0 [facility] Comment on above: Performed By: #### V ALPFT #### [address] [address] Kitchen Steward/Stewardess: Lucas Mi MD Albumin, CSF 149 mg/L Normal 70-350 [facility] Comment on above: Performed By: #### V ALPFT #### [address] [address] Kitchen Steward/Stewardess: Lucas Mi MD IgG Index, CSF 0.66 Normal <0.70 [facility] Comment on above: Performed By: #### V ALPFT #### [address] [address] Kitchen Steward/Stewardess: Lucas Mi MD IgG Synthesis < 3.3 Normal <3.3 [facility] Comment on above: Performed By: #### V ALPFT #### [address] [address] Kitchen Steward/Stewardess: Lucas Mi MD Albumin [Mass/Vol] 4.0 g/dL Normal 3.5-5.2 [facility] Comment on above: Performed By: #### V ALPFT #### [address] [address] Kitchen Steward/Stewardess: Lucas Mi MD IgG [Mass/Vol] 1252 mg/dL Normal 700-1600 [facility] Comment on above: Performed By: #### V ALPFT #### [address] [address] Kitchen Steward/Stewardess: Lucas Mi MD IgG, CSF 3.1 mg/dL Normal 0.5-7.0 [facility] Comment on above: Performed By: #### V ALPFT #### [address] [address] Kitchen Steward/Stewardess: Lucas Mi MD Oligoclonal Bands Oligoclonal bands ar e performed at [facility] using isoelectric focusing Normal [facility] Comment on above: Result Comment: and immunofixation. Performed By: #### V ALPFT #### [address] [address] Kitchen Steward/Stewardess: Lucas Mi MD PTon 04-04-2019 INR Coag (PPP) [Relative time] 1.0 {INR} Normal [facility] Comment on above: Result Comment: Therapeutic Range: Moderate Anticoagulant Intensity: INR = 2.0-3.0 High Anticoagulant Intensity: INR = 2.5-3.5 Performed By: #### C DP, BMPX #### [address] [address] Kitchen Steward/Stewardess: Lucas Mi MD PT Coag (PPP) [Time] 10.3 s Normal 9.0-12.0 [facility] Comment on above: Performed By: #### C DP, BMPX #### [address] [address] Kitchen Steward/Stewardess: Lucas Mi MD Protein, Total, CSFon 2018 Total Protein - CSF 25.8 mg/dL Normal 15.0-45.0 [facility] Comment on above: Performed By: #### V ALPFT #### [address] [address] Kitchen Steward/Stewardess: Lucas Mi MD Specimen Rejectionon 019 ----- NOT REPORTED Normal [facility] Comment on above: Performed By: #### V ALPFT #### [address] [address] Kitchen Steward/Stewardess: Lucas Mi MD RINA Screenon 04-03-2019 RINA Screen Negative Normal NEG [facility] Comment on above: Result Comment: This test was run on the [employer] RINA test system. The system provides ten test results (HEp-2NA, dsDNA, SSA, SSB, Sm, CAMPUS POLICE OFFICER, Scl-70, Marilee-1, Centromere and Histone analytes) from a single patient sample. A negative RINA screen indicates that the specimen was negative for all ten markers. Performed By: #### G LYHGB, TSHX, B12FOL, SED, ANASC #### [place] [address] Kitchen Steward/Stewardess: Lucas Mi MD CBC with Diffon 04-03-2019 Abs. Basophil 0.06 k/uL Normal 0.00-0.20 [facility] Comment on above: Performed By: #### C DP, BMPX #### [facility] [employer] [address] [place] [address] Kitchen Steward/Stewardess: Lucas Mi MD Abs.Imm.Granulocyte 0.03 k/uL Normal 0.00-0.30 [facility] Comment on above: Performed By: #### C DP, BMPX #### [facility] [employer] [address] [place] [address] Kitchen Steward/Stewardess: Lucas Mi MD Abs.Neutrophil (Seg) 3.49 k/uL Normal 1.50-8.10 [facility] Comment on above: Performed By: #### C DP, BMPX #### [facility] [employer] [address] [place] [address] Kitchen Steward/Stewardess: Lucas Mi MD Basophils/100 WBC (Bld) 1 % Normal 0-2 [facility] Comment on above: Performed By: #### C DP, BMPX #### [facility] [employer] [address] [place] [address] Kitchen Steward/Stewardess: Lucas Mi MD Eosinophils (Bld) [#/Vol] 0.24 10*3/uL Normal 0.00-0.44 [facility] Comment on above: Performed By: #### C DP, BMPX #### [facility] [employer] [address] [place] [address] Kitchen Steward/Stewardess: Lucas Mi MD Eosinophils/100 WBC (Bld) 3 % Normal 1-4 [facility] Comment on above: Performed By: #### C DP, BMPX #### [address] [address] Kitchen Steward/Stewardess: Lucas Mi MD Erythrocyte distribution width (RBC) [Ratio] 13.8 % Normal 11.8-14.4 [facility] Comment on above: Performed By: #### C DP, BMPX #### [facility] [employer] [address] [place] [address] Kitchen Steward/Stewardess: Lucas Mi MD Hematocrit (Bld) [Volume fraction] 40.3 % Normal 36.3-47.1 [facility] Comment on above: Performed By: #### C DP, BMPX #### [facility] [employer] [address] [place] [address] Kitchen Steward/Stewardess: Lucas Mi MD Hemoglobin (Bld) [Mass/Vol] 12.7 g/dL Normal 11.9-15.1 [facility] Comment on above: Performed By: #### C DP, BMPX #### [place] [address] Kitchen Steward/Stewardess: Lucas Mi MD Immature granulocytes (Bld) [#/Vol] 0 % Normal 0 [facility] Comment on above: Performed By: #### C DP, BMPX #### [place] [address] Kitchen Steward/Stewardess: Lucas Mi MD Lymphocytes (Bld) [#/Vol] 3.17 10*3/uL Normal 1.10-3.70 [facility] Comment on above: Performed By: #### C DP, BMPX #### [facility] [employer] [address] [place] [address] Kitchen Steward/Stewardess: Lucas Mi MD Lymphocytes/100 WBC (Bld) 41 % Normal 24-43 [facility] Comment on above: Performed By: #### C DP, BMPX #### [address] [address] Kitchen Steward/Stewardess: Lucas Mi MD MCH (RBC) [Entitic mass] 26.9 pg Normal 25.2-33.5 [facility] Comment on above: Performed By: #### C DP, BMPX #### [address] [address] Kitchen Steward/Stewardess: Lucas Mi MD MCHC (RBC) [Mass/Vol] 31.5 g/dL Normal 28.4-34.8 [facility] Comment on above: Performed By: #### C DP, BMPX #### [address] [address] Kitchen Steward/Stewardess: Lucas Mi MD MCV (RBC) [Entitic vol] 85.4 fL Normal 82.6-102.9 [facility] Comment on above: Performed By: #### C DP, BMPX #### [address] [address] Kitchen Steward/Stewardess: Lucas Mi MD Monocytes (Bld) [#/Vol] 0.82 10*3/uL Normal 0.10-1.20 [facility] Comment on above: Performed By: #### C DP, BMPX #### [address] [address] Kitchen Steward/Stewardess: Lucas Mi MD Monocytes/100 WBC (Bld) 11 % Normal 3-12 [facility] Comment on above: Performed By: #### C DP, BMPX #### [address] [address] Kitchen Steward/Stewardess: Lucas Mi MD Neutrophil (Seg) 44 % Normal 36-65 [facility] Comment on above: Performed By: #### C DP, BMPX #### [address] [address] Kitchen Steward/Stewardess: Lucas Mi MD NRBC Automated 0.0 per 100 WBC Normal 0.0 [facility] Comment on above: Performed By: #### C DP, BMPX #### [address] [address] Kitchen Steward/Stewardess: Lucas Mi MD Platelet mean volume (Bld) [Entitic vol] 8.6 fL Normal 8.1-13.5 [facility] Comment on above: Performed By: #### C DP, BMPX #### [address] [address] Kitchen Steward/Stewardess: Lucas Mi MD Platelets (Bld) [#/Vol] 279 10*3/uL Normal 138-453 [facility] Comment on above: Performed By: #### C DP, BMPX #### [address] [address] Kitchen Steward/Stewardess: Lucas Mi MD RBC (Bld) [#/Vol] 4.72 10*6/uL Normal 3.95-5.11 [facility] Comment on above: Performed By: #### C DP, BMPX #### [address] [address] Kitchen Steward/Stewardess: Lucas Mi MD WBC (Bld) [#/Vol] 7.8 10*3/uL Normal 3.5-11.3 [facility] Comment on above: Performed By: #### C DP, BMPX #### [address] [address] Kitchen Steward/Stewardess: Lucas Mi MD Auto Diff Performed NOT REPORTED Normal [facility] Comment on above: Performed By: #### C DP, BMPX #### [address] [address] Kitchen Steward/Stewardess: Lucas Mi MD Platelets (Bld) [#/Vol] NOT REPORTED Normal [facility] Comment on above: Performed By: #### C DP, BMPX #### [facility] [employer] [address] [place] [address] [id number] Kitchen Steward/Stewardess: Lucas Mi MD RBC morphology finding Nom (Bld) NOT REPORTED Normal [facility] Comment on above: Performed By: #### C DP, BMPX #### [facility] [employer] [address] [place] [address] [phone] Kitchen Steward/Stewardess: Lucas Mi MD WBC Morphology NOT REPORTED Normal [facility] Comment on above: Performed By: #### C DP, BMPX #### [facility] [employer] [address] [place] [address] [id number] Kitchen Steward/Stewardess: Lucas Mi MD Comp Metabolic Pr/rfx MGon 0 04-03-2019 (cont.) Normal [facility] Comment on above: Result Comment: Aver age GFR for 30-39 years old: 107 mL/min/1.73sq m Chronic Kidney Disease: <60 mL/min/1.73sq m Kidney failure: <15 mL/min/1.73sq m eGFR calculated using average adult body mass. Additional eGFR calculator available at: [email or web address] Performed By: #### C DP, BMPX #### [address] [address] Kitchen Steward/Stewardess: Lucas Mi MD Albumin [Mass/Vol] 3.7 g/dL Normal 3.5-5.2 [facility] Comment on above: Performed By: #### C DP, BMPX #### [facility] [address] [place] [address] [id number] Kitchen Steward/Stewardess: Lucas Mi MD Albumin/Globulin [Mass ratio] 1.1 {ratio} Normal 1.0-2.5 [facility] Comment on above: Performed By: #### C DP, BMPX #### [facility] [address] [place] [address], [place] [address] Kitchen Steward/Stewardess: Lucas Mi MD Alkaline Phos 133 U/L High 35-104 [facility] Comment on above: Performed By: #### C DP, BMPX #### [facility] [address] [place] [address] Kitchen Steward/Stewardess: Lucas Mi MD ALT [Catalytic activity/Vol] 61 U/L High 5-33 [facility] Comment on above: Performed By: #### C DP, BMPX #### [facility] [address] [place] [address] Kitchen Steward/Stewardess: Lucas Mi MD Anion gap [Moles/Vol] 17 mmol/L Normal 9-17 [facility] Comment on above: Performed By: #### C DP, BMPX #### [address] [address] Kitchen Steward/Stewardess: Lucas Mi MD AST [Catalytic activity/Vol] 34 U/L High <32 [facility] Comment on above: Performed By: #### C DP, BMPX #### [address] [address] Kitchen Steward/Stewardess: Lucas Mi MD Bilirubin Ql (U) 0.21 mg/dL Low 0.3-1.2 [facility] Comment on above: Performed By: #### C DP, BMPX #### [facility] [address] [place] [address] Kitchen Steward/Stewardess: Lucas Mi MD Calcium [Mass/Vol] 9.0 mg/dL Normal 8.6-10.4 [facility] Comment on above: Performed By: #### C DP, BMPX #### [facility] [address] [place] [address] Kitchen Steward/Stewardess: Lucas Mi MD Chloride [Moles/Vol] 102 mmol/L Normal 98-107 [facility] Comment on above: Performed By: #### C DP, BMPX #### [facility] [address] [place] [address] Kitchen Steward/Stewardess: Lucas Mi MD CO2 [Moles/Vol] 24 mmol/L Normal 20-31 [facility] Comment on above: Performed By: #### C DP, BMPX #### [address] [address] Kitchen Steward/Stewardess: Lucas Mi MD Creatinine [Mass/Vol] 0.48 mg/dL Low 0.50-0.90 [facility] Comment on above: Performed By: #### C DP, BMPX #### [address] [address] Kitchen Steward/Stewardess: Lucas Mi MD GFR, Amer >60 Normal >60 [facility] Comment on above: Performed By: #### C DP, BMPX #### [facility] [address] [place] [address] Kitchen Steward/Stewardess: Lucas Mi MD GFR,non Amer >60 Normal >60 [facility] Comment on above: Performed By: #### C DP, BMPX #### [facility] [address] [place] [address] Kitchen Steward/Stewardess: Lucas Mi MD Glucose [Mass/Vol] 115 mg/dL High 70-99 [facility] Comment on above: Performed By: #### C DP, BMPX #### [facility] [address] [place] [address] Kitchen Steward/Stewardess: Lucas Mi MD Potassium [Moles/Vol] 3.8 mmol/L Normal 3.7-5.3 [facility] Comment on above: Performed By: #### C DP, BMPX #### [facility] [address] [place] [address] Kitchen Steward/Stewardess: Lucas Mi MD Protein [Mass/Vol] 7.1 g/dL Normal 6.4-8.3 [facility] Comment on above: Performed By: #### C DP, BMPX #### [address] [address] Kitchen Steward/Stewardess: Lucas Mi MD Sodium [Moles/Vol] 143 mmol/L Normal 135-144 [facility] Comment on above: Performed By: #### C DP, BMPX #### [facility] [address] [place] [address] Kitchen Steward/Stewardess: Lucas Mi MD Urea nitrogen [Mass/Vol] 11 mg/dL Normal -20 [facility] Comment on above: Performed By: #### C DP, BMPX #### [facility] [address] [place] [address] Kitchen Steward/Stewardess: Lucas Mi MD BUN/CRE Ratio NOT REPORTED Normal - [facility] Comment on above: Performed By: #### C DP, BMPX #### [address] [address] Kitchen Steward/Stewardess: Lucas Mi MD Staging: NOT REPORTED Normal [facility] Comment on above: Performed By: #### C DP, BMPX #### [address] [address] Kitchen Steward/Stewardess: Lucas Mi MD Hemoglobin A1Con 04-03-2019 HbA1c (Bld) [Mass fraction] 134 mg/dL Normal [facility] Comment on above: Result Comment: The ADA and AACC recommend providing the estimated average glucose result to permit better patient understanding of their HBA1c result. Performed By: #### C DP, BMPX #### [facility] [address] [place] [address] Kitchen Steward/Stewardess: Lucas Mi MD HbA1c (Bld) [Mass fraction] 6.3 % High 4.0-6.0 [facility] Comment on above: Performed By: #### C DP, BMPX #### [facility] [address] [place] [address] Kitchen Steward/Stewardess: Lucas Mi MD Lipid Profileon 04-03-2019 Cholesterol [Mass/Vol] 180 mg/dL Normal <200 [facility] Comment on above: Result Comment: Cholesterol Guidelines: <200 Desirable 200-240 Borderline >240 Undesirable Performed By: #### C DP, BMPX #### [facility] [address] [place] [address] Kitchen Steward/Stewardess: Lucas Mi MD Cholesterol in HDL [Mass/Vol] 41 mg/dL Normal >40 [facility] Comment on above: Result Comment: HDL Guidelines: <40 Undesirable 40-59 Borderline >59 Desirable Performed By: #### C DP, BMPX #### [facility] [address] [place] [address] Kitchen Steward/Stewardess: Lucas Mi MD Cholesterol in LDL [Mass/Vol] 106 mg/dL Normal 0-130 [facility] Comment on above: Result Comment: LDL Guidelines: <100 Desirable 100-129 Near to/above Desirable 130-159 Borderline >159 Undesirable Direct (measured) LDL and calculated LDL are not interchangeable tests. Performed By: #### C DP, BMPX #### [facility] [address] [place] [address] Kitchen Steward/Stewardess: Lucas Mi MD Cholesterol.total/C holesterol in HDL [Mass ratio] 4.4 {ratio} Normal <5 [facility] Comment on above: Performed By: #### C DP, BMPX #### [facility] [address] [place] [address] Kitchen Steward/Stewardess: Lucas Mi MD Triglyceride [Mass/Vol] 165 mg/dL High <150 [facility] Comment on above: Result Comment: Triglyceride Guidelines: <150 Desirable 150-199 Borderline 200-499 High >499 Very high Based on AHA Guidelines for fasting triglyceride, June 2012. Performed By: #### C DP, BMPX #### [facility] [address] [place] [address] Kitchen Steward/Stewardess: Lucas Mi MD Cholesterol in VLDL [Mass/Vol] NOT REPORTED Normal - [facility] Comment on above: Performed By: #### C DP, BMPX #### [facility] [address] [place] [address] Kitchen Steward/Stewardess: Lucas Mi MD B12/Folate Panelon 9 Folic Acid >20.0 Normal >4.8 [facility] Comment on above: Performed By: #### G LYHGB, TSHX, B12FOL, SED, ANASC #### [facility] [address] [place] [address] Kitchen Steward/Stewardess: Lucas Mi MD Cobalamin (Vitamin B12) [Mass/Vol] 393 pg/mL Normal 232-1245 [facility] Comment on above: Performed By: #### G LYHGB, TSHX, B12FOL, SED, ANASC #### [facility] [address] [place] [address] Kitchen Steward/Stewardess: Lucas Mi MD Basic Metab w/rfx MGon 04-02 (cont.) Normal [facility] Comment on above: Result Comment: Aver age GFR for 30-39 years old: 107 mL/min/1.73sq m Chronic Kidney Disease: <60 mL/min/1.73sq m Kidney failure: <15 mL/min/1.73sq m eGFR calculated using average adult body mass. Additional eGFR calculator available at: [email or web address] Performed By: #### C DP, BMPX #### [facility] [address] [place] [address] Kitchen Steward/Stewardess: Lucas Mi MD Anion gap [Moles/Vol] 14 mmol/L Normal - [facility] Comment on above: Performed By: #### C DP, BMPX #### [facility] [address] [place] [address] Kitchen Steward/Stewardess: Lucas Mi MD Calcium [Mass/Vol] 8.9 mg/dL Normal 8.6-10.4 [facility] Comment on above: Performed By: #### C DP, BMPX #### [facility] [address] [place] [address] Kitchen Steward/Stewardess: Lucas Mi MD Chloride [Moles/Vol] 102 mmol/L Normal 98-107 [facility] Comment on above: Performed By: #### C DP, BMPX #### [facility] [address] [place] [address] Kitchen Steward/Stewardess: Lucas Mi MD CO2 [Moles/Vol] 24 mmol/L Normal 20-31 [facility] Comment on above: Performed By: #### C DP, BMPX #### [facility] [address] [place] [address] Kitchen Steward/Stewardess: Lucas Mi MD Creatinine [Mass/Vol] 0.55 mg/dL Normal 0.50-0.90 [facility] Comment on above: Performed By: #### C DP, BMPX #### [facility] [address] [place] [address] Kitchen Steward/Stewardess: Lucas Mi MD GFR, Amer >60 Normal >60 [facility] Comment on above: Performed By: #### C DP, BMPX #### [facility] [address] [place] [address] Kitchen Steward/Stewardess: Lucas Mi MD GFR,non Amer >60 Normal >60 [facility] Comment on above: Performed By: #### C DP, BMPX #### [facility] [address] [place] [address] Kitchen Steward/Stewardess: Lucas Mi MD Glucose [Mass/Vol] 143 mg/dL High 70-99 [facility] Comment on above: Performed By: #### C DP, BMPX #### [facility] [address] [place] [address] Kitchen Steward/Stewardess: Lucas Mi MD Potassium [Moles/Vol] 4.0 mmol/L Normal 3.7-5.3 [facility] Comment on above: Performed By: #### C DP, BMPX #### [facility] [address] [place] [address] Kitchen Steward/Stewardess: Lucas Mi MD Sodium [Moles/Vol] 140 mmol/L Normal 135-144 [facility] Comment on above: Performed By: #### C DP, BMPX #### [facility] [address] [place] [address] Kitchen Steward/Stewardess: Lucas Mi MD Urea nitrogen [Mass/Vol] 14 mg/dL Normal 6-20 [facility] Comment on above: Performed By: #### C DP, BMPX #### [address] [address] Kitchen Steward/Stewardess: Lucas Mi MD BUN/CRE Ratio NOT REPORTED Normal -20 [facility] Comment on above: Performed By: #### C DP, BMPX #### [address] [address] Kitchen Steward/Stewardess: Lucas Mi MD Staging: NOT REPORTED Normal [facility] Comment on above: Performed By: #### C DP, BMPX #### [facility] [address] [place] [address] Kitchen Steward/Stewardess: Lucas Mi MD CBC with Diffon 04-02-2019 Abs. Basophil 0.04 k/uL Normal 0.00-0.20 [facility] Comment on above: Performed By: #### C DP, BMPX #### [address] [address] Kitchen Steward/Stewardess: Lucas Mi MD Abs.Imm.Granulocyte 0.03 k/uL Normal 0.00-0.30 [facility] Comment on above: Performed By: #### C DP, BMPX #### [address] [address] Kitchen Steward/Stewardess: Lucas Mi MD Abs.Neutrophil (Seg) 2.98 k/uL Normal 1.50-8.10 [facility] Comment on above: Performed By: #### C DP, BMPX #### [address] [address] Kitchen Steward/Stewardess: Lucas Mi MD Basophils/100 WBC (Bld) 1 % Normal 0-2 [facility] Comment on above: Performed By: #### C DP, BMPX #### [address] [address] Kitchen Steward/Stewardess: Lucas Mi MD Eosinophils (Bld) [#/Vol] 0.17 10*3/uL Normal 0.00-0.44 [facility] Comment on above: Performed By: #### C DP, BMPX #### [address] [address] Kitchen Steward/Stewardess: Lucas Mi MD Eosinophils/100 WBC (Bld) 3 % Normal 1-4 [facility] Comment on above: Performed By: #### C DP, BMPX #### [address] [address] Kitchen Steward/Stewardess: Lucas Mi MD Erythrocyte distribution width (RBC) [Ratio] 13.9 % Normal 11.8-14.4 [facility] Comment on above: Performed By: #### C DP, BMPX #### [address] [address] Kitchen Steward/Stewardess: Lucas Mi MD Hematocrit (Bld) [Volume fraction] 40.7 % Normal 36.3-47.1 [facility] Comment on above: Performed By: #### C DP, BMPX #### [address] [address] Kitchen Steward/Stewardess: Lucas Mi MD Hemoglobin (Bld) [Mass/Vol] 12.3 g/dL Normal 11.9-15.1 [facility] Comment on above: Performed By: #### C DP, BMPX #### [address] [address] Kitchen Steward/Stewardess: Lucas Mi MD Immature granulocytes (Bld) [#/Vol] 0 % Normal 0 [facility] Comment on above: Performed By: #### C DP, BMPX #### [address] [address] Kitchen Steward/Stewardess: Lucas Mi MD Lymphocytes (Bld) [#/Vol] 2.95 10*3/uL Normal 1.10-3.70 [facility] Comment on above: Performed By: #### C DP, BMPX #### [address] [address] Kitchen Steward/Stewardess: Lucas Mi MD Lymphocytes/100 WBC (Bld) 44 % High 24-43 [facility] Comment on above: Performed By: #### C DP, BMPX #### [address] [address] Kitchen Steward/Stewardess: Lucas Mi MD MCH (RBC) [Entitic mass] 26.6 pg Normal 25.2-33.5 [facility] Comment on above: Performed By: #### C DP, BMPX #### [facility] [address] [place] [address] Kitchen Steward/Stewardess: Lucas iM MD MCHC (RBC) [Mass/Vol] 30.2 g/dL Normal 28.4-34.8 [facility] Comment on above: Performed By: #### C DP, BMPX #### [place] [address] Kitchen Steward/Stewardess: Lucas Mi MD MCV (RBC) [Entitic vol] 87.9 fL Normal 82.6-102.9 [facility] Comment on above: Performed By: #### C DP, BMPX #### [place] [address] Kitchen Steward/Stewardess: Lucas Mi MD Monocytes (Bld) [#/Vol] 0.54 10*3/uL Normal 0.10-1.20 [facility] Comment on above: Performed By: #### C DP, BMPX #### [place] [address] Kitchen Steward/Stewardess: Lucas Mi MD Monocytes/100 WBC (Bld) 8 % Normal 3-12 [facility] Comment on above: Performed By: #### C DP, BMPX #### [place] [address] Kitchen Steward/Stewardess: Lucas Mi MD Neutrophil (Seg) 44 % Normal 36-65 [facility] Comment on above: Performed By: #### C DP, BMPX #### [place] [address] Kitchen Steward/Stewardess: Lucas Mi MD NRBC Automated 0.0 per 100 WBC Normal 0.0 [facility] Comment on above: Performed By: #### C DP, BMPX #### [place] [address] Kitchen Steward/Stewardess: Lucas iM MD Platelet mean volume (Bld) [Entitic vol] 8.8 fL Normal 8.1-13.5 [facility] Comment on above: Performed By: #### C DP, BMPX #### [facility] [place] [address] Kitchen Steward/Stewardess: Lucas Mi MD Platelets (Bld) [#/Vol] 291 10*3/uL Normal 138-453 [facility] Comment on above: Performed By: #### C DP, BMPX #### [address] [address] Kitchen Steward/Stewardess: Lucas Mi MD RBC (Bld) [#/Vol] 4.63 10*6/uL Normal 3.95-5.11 [facility] Comment on above: Performed By: #### C DP, BMPX #### [address] [address] Kitchen Steward/Stewardess: Lucas Mi MD WBC (Bld) [#/Vol] 6.7 10*3/uL Normal 3.5-11.3 [facility] Comment on above: Performed By: #### C DP, BMPX #### [facility] [address] [place] [address] Kitchen Steward/Stewardess: Lucas Mi MD Auto Diff Performed NOT REPORTED Normal [facility] Comment on above: Performed By: #### C DP, BMPX #### [address] [address] Kitchen Steward/Stewardess: Lucas Mi MD Platelets (Bld) [#/Vol] NOT REPORTED Normal [facility] Comment on above: Performed By: #### C DP, BMPX #### [facility] [address] [place] [address] Kitchen Steward/Stewardess: Lucas Mi MD RBC morphology finding Nom (Bld) NOT REPORTED Normal [facility] Comment on above: Performed By: #### C DP, BMPX #### [facility] [address] [place] [address] Kitchen Steward/Stewardess: Lucas Mi MD WBC Morphology NOT REPORTED Normal [facility] Comment on above: Performed By: #### C DP, BMPX #### [facility] [address] [id number] Kitchen Steward/Stewardess: Lucas Mi MD CTA HEAD W CON AND CTA NECK W CONon 04-02-2019 CTA HEAD W CON AND CTA NECK W CON EXAMINATION: CTA OF THE HEAD AND NECK WITH CONTRAST 04/02/2019 5:54 am: TECHNIQUE: CTA of the head and neck was performed with the administration of intravenous contrast. Multiplanar reformatted images are provided for review. MIP images are provided for review. Stenosis of the internal carotid arteries measured using NASCET criteria. Dose modulation, iterative reconstruction, and/or weight based adjustment of the mA/kV was utilized to reduce the radiation dose to as low as reasonably achievable. COMPARISON: CTA head and neck May 13, 2017, MRI brain January 24, 2019 HISTORY: ORDERING SYSTEM PROVIDED HISTORY: possible stroke TECHNOLOGIST PROVIDED HISTORY: Reason for Exam: possible stroke Acuity: Unknown Type of Exam: Unknown FINDINGS: CTA NECK: AORTIC ARCH/ARCH VESSELS: There is a normal branch pattern of the aortic arch. No significant stenosis is seen of the innominate artery or subclavian arteries. CAROTID ARTERIES: The common carotid arteries are normal in appearance without evidence of a flow limiting stenosis. The internal carotid arteries are normal in appearance without evidence of a flow limiting stenosis by NASCET criteria. No dissection or arterial injury is seen. VERTEBRAL ARTERIES: The vertebral arteries both arise from the subclavian arteries and are normal in caliber without evidence of flow limiting stenosis or dissection. SOFT TISSUES: The lung apices are clear. No superior mediastinal lymphadenopathy. There are nonenlarged cervical lymph nodes, likely reactive. The visualized portion of the larynx and pharynx appear unremarkable. The parotid, submandibular and thyroid glands demonstrate no acute abnormality. BONES: The visualized osseous structures appear unremarkable. CTA HEAD: ANTERIOR CIRCULATION: The internal carotid arteries are normal in course and caliber without focal stenosis. The anterior cerebral and middle cerebral arteries demonstrate no focal stenosis. POSTERIOR CIRCULATION: There is origin of the left APPLICATION SECURITY ARCHITECT, a normal variant. The posterior cerebral arteries demonstrate no focal stenosis. The vertebral and basilar arteries appear unremarkable. There is no evidence of intracranial aneurysm. BRAIN: No mass effect or midline shift. No abnormal extra-axial fluid collection. The hwang-white differentiation appears grossly maintained. IMPRESSION: No acute abnormality or flow-limiting stenosis of the major arteries of the head and neck. Interpreted by: Avi Caputo MD Signed by: Avi Caputo MD 04/02/19 Final result Normal [facility] Drug Scr, Abuse, Uron 2018 Amphetamine(s),Ur Negative Normal NEG [facility] Comment on above: Result Comment: (Positive cutoff 1000 ng/mL) Performed By: #### Tyree DODSON URTPRT #### [facility] [address] [place] [address] Kitchen Steward/Stewardess: Lucas Mi MD Barbiturate(s),Ur Negative Normal NEG [facility] Comment on above: Result Comment: (Positive cutoff 200 ng/mL) Performed By: #### Tyree DODSON URTPRT #### [facility] [address] [place] [address] Kitchen Steward/Stewardess: Lucas Mi MD Base excess Calc (Bld) [Moles/Vol] Negative Normal NEG [facility] Comment on above: Result Comment: (Positive cutoff 300 ng/mL) Performed By: #### Tyree DODSON, URTPRT #### [facility] [address] [place] [address] Kitchen Steward/Stewardess: Lucas Mi MD Benzodiazepine(s) Negative Normal NEG [facility] Comment on above: Result Comment: (Positive cutoff 200 ng/mL) Performed By: #### Tyree DODSON, URTPRT #### [facility] [address] [place] [address] Kitchen Steward/Stewardess: Lucas Mi MD Cannabinoid(s),Ur Negative Normal NEG [facility] Comment on above: Result Comment: (Positive cutoff 50 ng/mL) Performed By: #### Tyree AU, URTPRT #### [facility] [address] [place] [address] Kitchen Steward/Stewardess: Lucas Mi MD Interpretive Info Assay provides medic al screening only. The absence of expected drug(s) and/or Normal [facility] Comment on above: Result Comment: meta bolite(s) may indicate diluted or adulterated urine, limitations of testing or timing of collection. Testing for legal purposes should be confirmed by another method. To request confirmation of test result, please call the lab within 7 days of sample submission. Performed By: #### Tyree AU, URTPRT #### [facility] [address] [place] [address] Kitchen Steward/Stewardess: Lucas Mi MD Methadone Ql (U) Negative Normal NEG [facility] Comment on above: Result Comment: (Positive cutoff 300 ng/mL) Performed By: #### Tyree DODSON, URTPRT #### [facility] [address] [place] [address] Kitchen Steward/Stewardess: Lucas Mi MD Opiate(s), Ur Positive Abnormal NEG [facility] Comment on above: Result Comment: (Positive cutoff 300 ng/mL) Performed By: #### Tyree AU, URTPRT #### [facility] [address] [place] [address] Kitchen Steward/Stewardess: Lucas Mi MD Oxycodone, Urine Negative Normal NEG [facility] Comment on above: Result Comment: (Positive cutoff 100 ng/mL) Performed By: #### Tyree DODSON, URTPRT #### [facility] [address] [place] [address] Kitchen Steward/Stewardess: Lucas Mi MD Phencyclidine, Ur Negative Normal NEG [facility] Comment on above: Result Comment: (Positive cutoff 25 ng/mL) Performed By: #### Tyree DODSON, URTPRT #### [facility] [address] [place] [address] Kitchen Steward/Stewardess: Lucas Mi MD Buprenorphrine, Ur NOT REPORTED Normal NEG [facility] Comment on above: Performed By: #### Tyree AU, URTPRT #### [facility] [address] [place] [address] Kitchen Steward/Stewardess: Lcuas Mi MD MDMA, Urine NOT REPORTED Normal NEG [facility] Comment on above: Performed By: #### Tyree AU, URTPRT #### [facility] [address] [place] [address] Kitchen Steward/Stewardess: Lucas Mi MD Methamphetamine, Ur NOT REPORTED Normal NEG [facility] Comment on above: Performed By: #### Tyree AU, URTPRT #### [facility] [address] [place] [address] Kitchen Steward/Stewardess: Lucas Mi MD Propoxyphene,Urine NOT REPORTED Normal NEG [facility] Comment on above: Performed By: #### Tyree AU, URTPRT #### [facility] [employer] [address] [place] [id number] Kitchen Steward/Stewardess: Lucas Mi MD Tricyclic antidepressants Screen Ql (U) NOT REPORTED Normal NEG [facility] Comment on above: Performed By: #### Tyree AU, URTPRT #### [facility] [address] [place] [id number] Kitchen Steward/Stewardess: Lucas Mi MD Hemoglobin A1Con 04-02-2019 HbA1c (Bld) [Mass fraction] 128 mg/dL Normal [facility] Comment on above: Result Comment: The ADA and AACC recommend providing the estimated average glucose result to permit better patient understanding of their HBA1c result. Performed By: #### G LYHGB, TSHX, B12FOL, SED, ANASC #### [facility] [address] [place] [id number] Kitchen Steward/Stewardess: Lucas Mi MD HbA1c (Bld) [Mass fraction] 6.1 % High 4.0-6.0 [facility] Comment on above: Performed By: #### G LYHGB, TSHX, B12FOL, SED, ANASC #### [facility] [address] [place] [id number] Kitchen Steward/Stewardess: Lucas Mi MD MRI BRAIN W WO CONTRASTon MRI BRAIN W WO CONTRAST EXAMINATION: MRI OF THE BRAIN WITHOUT AND WITH CONTRAST; MRI OF THE CERVICAL SPINE WITHOUT AND WITH CONTRAST 04/02/2019 4:04 pm TECHNIQUE: Multiplanar multisequence MRI of the head/brain was performed without and with the administration of intravenous contrast.; Multiplanar multisequence MRI of the cervical spine was performed without and with the administration of intravenous contrast. COMPARISON: 01/24/2019 HISTORY: ORDERING SYSTEM PROVIDED HISTORY: suspect MS exacerbation FINDINGS: MRI brain: INTRACRANIAL STRUCTURES/VENTRICLES: There is no acute infarct. There are periventricular white matter signal changes, perpendicularly oriented to the direction of the lateral ventricles, in a pattern consistent with the patient's history of multiple sclerosis. The disease burden is grossly unchanged. No enhancing or diffusion restricting lesions are identified. There is no mass, shift, or bleed. Normal expected signal voids are present within the vessels at the base of skull. ORBITS: The visualized portion of the orbits demonstrate no acute abnormality. SINUSES: The visualized paranasal sinuses and mastoid air cells are well aerated. BONES/SOFT TISSUES: The bone marrow signal intensity appears normal. The soft tissues demonstrate no acute abnormality. MRI cervical spine: There is straightening of the normal cervical lordosis. No acute fracture or traumatic subluxation is identified. The cervical cord is normal in size and signal intensity. Normal expected signal voids are present within the vertebral arteries. No significant canal or neural foraminal stenosis is visualized. There is no abnormal enhancement after contrast administration. IMPRESSION: Brain findings consistent with the patient's history of multiple sclerosis. No enhancing lesions identified to suggest active demyelination at this time. No cervical cord abnormality detected. Interpreted by: Barrington Lindsay MD Signed by: Barrington Lindsay MD 04/02/19 Final result Normal [facility] MRI CERVICAL SPINE W WO CONT RASTon 04-02-2019 MRI CERVICAL SPINE W WO CONTRAST EXAMINATION: MRI OF THE BRAIN WITHOUT AND WITH CONTRAST; MRI OF THE CERVICAL SPINE WITHOUT AND WITH CONTRAST 04/02/2019 4:04 pm TECHNIQUE: Multiplanar multisequence MRI of the head/brain was performed without and with the administration of intravenous contrast.; Multiplanar multisequence MRI of the cervical spine was performed without and with the administration of intravenous contrast. COMPARISON: 01/24/2019 HISTORY: ORDERING SYSTEM PROVIDED HISTORY: suspect MS exacerbation FINDINGS: MRI brain: INTRACRANIAL STRUCTURES/VENTRICLES: There is no acute infarct. There are periventricular white matter signal changes, perpendicularly oriented to the direction of the lateral ventricles, in a pattern consistent with the patient's history of multiple sclerosis. The disease burden is grossly unchanged. No enhancing or diffusion restricting lesions are identified. There is no mass, shift, or bleed. Normal expected signal voids are present within the vessels at the base of skull. ORBITS: The visualized portion of the orbits demonstrate no acute abnormality. SINUSES: The visualized paranasal sinuses and mastoid air cells are well aerated. BONES/SOFT TISSUES: The bone marrow signal intensity appears normal. The soft tissues demonstrate no acute abnormality. MRI cervical spine: There is straightening of the normal cervical lordosis. No acute fracture or traumatic subluxation is identified. The cervical cord is normal in size and signal intensity. Normal expected signal voids are present within the vertebral arteries. No significant canal or neural foraminal stenosis is visualized. There is no abnormal enhancement after contrast administration. IMPRESSION: Brain findings consistent with the patient's history of multiple sclerosis. No enhancing lesions identified to suggest active demyelination at this time. No cervical cord abnormality detected. Interpreted by: Barrington Lindsay MD Signed by: Barrington Lindsay MD 04/02/19 Final result Normal [facility] Protein,Tot,Sharon Uron 2018 Creatinine [Mass/Vol] 130.0 mg/dL Normal 28.0-217.0 [facility] Comment on above: Performed By: #### C KATHRYN BMPX #### [facility] [employer] [address] [place] [address] Kitchen Steward/Stewardess: Lucas Mi MD Tot Prot. Conc. 11 mg/dL Normal [facility] Comment on above: Result Comment: No n ormal range established. Performed By: #### C KATHRYN BMPX #### [facility] [address] [place], [place] [id number] Kitchen Steward/Stewardess: Lucas Mi MD TP/Cre Ratio 0.08 Normal 0.00-0.20 [facility] Comment on above: Performed By: #### C KATHRYN BMPX #### [facility] [employer] [address] [place] [id number] Kitchen Steward/Stewardess: Lucas Mi MD Sedimentation Rateon 019 Sedimentation Rate 14 mm Normal 0-20 [facility] Comment on above: Performed By: #### G LYHGB, TSHX, B12FOL, SED, ANASC #### [facility] [employer] [address] [place] [id number] Kitchen Steward/Stewardess: Lucas Mi MD TSH w/reflex to FT4on 2018 TSH Qn 2.10 m[IU]/L Normal 0.30-5.00 [facility] Comment on above: Performed By: #### G LYHGB, TSHX, B12FOL, SED, ANASC #### [facility] [employer] [address] [place] [address] Kitchen Steward/Stewardess: Lucas Mi MD Valproic Acid,Fr+Toton 04-02 Valproic Acid, %Free 11.5 % Normal 5.0-18.4 [facility] Comment on above: Performed By: #### V ALPFT #### [facility] [employer] [address] [place] [address] Kitchen Steward/Stewardess: Lucas Mi MD Valproic Acid, Free 5.5 ug/mL Low 7.0-23.0 [facility] Comment on above: Performed By: #### V ALPFT #### [facility] [employer] [address] [place] [id number] Kitchen Steward/Stewardess: Lucas Mi MD Valproic Acid 48 ug/mL Low 50-125 [facility] Comment on above: Performed By: #### V ALPFT #### [facility] [employer] [address] [place] [id number] Kitchen Steward/Stewardess: Lucas Mi MD Date last dose, NOT REPORTED Normal [facility] Comment on above: Performed By: #### V ALPFT #### [facility] [address] [place] [address] Kitchen Steward/Stewardess: Lucas Mi MD Dose amount NOT REPORTED Normal [facility] Comment on above: Performed By: #### V ALPFT #### [facility] [address] [facility], [place] [id number] Kitchen Steward/Stewardess: Lucas Mi MD Time last dose, NOT REPORTED Normal [facility] Comment on above: Performed By: #### V ALPFT #### [facility] [address] [facility], [place] [id number] Kitchen Steward/Stewardess: Lucas Mi MD Vital Signs Date Time Vital Sign Value Performing Clinician Facility 05-24-2025 10:05-0400 Body height 170.2 cm Pfo 1 [facility] 05-24-2025 10:05-0400 Body mass index (BMI) [Ratio] 39.8 kg/m2 Pfo 1 [facility] 05-24-2025 10:05-0400 Body temperature 97.9 [degF] Pfo 1 [facility] 05-24-2025 10:05-0400 Body weight 115.3 kg Pfo 1 [facility] 05-24-2025 10:05-0400 Diastolic blood pressure 82 mm[Hg] Pfo 1 [facility] 05-24-2025 10:05-0400 Heart rate 102 /min Pfo 1 [facility] 05-24-2025 10:05-0400 Respiratory rate 20 /min Pfo 1 [facility] 05-24-2025 10:05-0400 SaO2% (BldA) [Mass fraction] 100 % Pfo 1 [facility] 05-24-2025 10:05-0400 Systolic blood pressure 136 mm[Hg] Pfo 1 [facility] 04-26-2025 09:53-0400 Body height 170.2 cm Pfo 1 [facility] 04-26-2025 09:53-0400 Body mass index (BMI) [Ratio] 40.4 kg/m2 Pfo 1 [facility] 04-26-2025 09:53-0400 Body temperature 97.3 [degF] [facility] [employer] 04-26-2025 09:53-0400 Body weight 117.03 kg Pfo 1 [facility] [employer] [facility] 04-26-2025 09:53-0400 Diastolic blood pressure 83 mm[Hg] Pfo 1 [facility] [employer] [facility] 04-26-2025 09:53-0400 Heart rate 103 /min Pfo 1 [facility] [employer] [facility] 04-26-2025 09:53-0400 Respiratory rate 16 /min Pfo 1 [facility] [employer] [facility] 04-26-2025 09:53-0400 SaO2% (BldA) [Mass fraction] 100 % Pfo 1 [facility] [employer] [facility] 04-26-2025 09:53-0400 Systolic blood pressure 137 mm[Hg] Pfo 1 [facility] 04-25-2025 12:50-0400 Body mass index (BMI) [Ratio] 39.84 kg/m2 Bri Kraft MD Work Phone: [facility] 04-25-2025 12:50-0400 Body weight 115.39 kg Bri Kraft MD Work Phone: [facility] 04-25-2025 12:50-0400 Diastolic blood pressure 80 mm[Hg] Bri Kraft MD Work Phone: [facility] 04-25-2025 12:50-0400 Heart rate 102 /min Bri Kraft MD Work Phone: [facility] 04-25-2025 12:50-0400 Systolic blood pressure 118 mm[Hg] Bri Kraft MD Work Phone: [facility] 03-29-2025 10:04-0400 Body height 170.2 cm Pfo 1 [facility] [employer] [facility] 03-29-2025 10:04-0400 Body mass index (BMI) [Ratio] 40.15 kg/m2 Pfo 1 [facility] [employer] [facility] 03-29-2025 10:04-0400 Body temperature 98.01 [degF] [facility] [employer] [facility] 03-29-2025 10:04-0400 Body weight 116.3 kg Pfo 1 [facility] 03-29-2025 10:04-0400 Diastolic blood pressure 85 mm[Hg] Pfo 1 [facility] 03-29-2025 10:04-0400 Heart rate 111 /min Pfo 1 [facility] 03-29-2025 10:04-0400 Respiratory rate 16 /min Pfo 1 [facility] 03-29-2025 10:04-0400 SaO2% (BldA) [Mass fraction] 99 % Pfo 1 [facility] 03-29-2025 10:04-0400 Systolic blood pressure 130 mm[Hg] Pfo 1 [facility] 03-01-2025 09:45-0400 Body height 170.2 cm Pfo 1 [facility] 03-01-2025 09:45-0400 Body mass index (BMI) [Ratio] 40.4 kg/m2 Pfo 1 [facility] 03-01-2025 09:45-0400 Body temperature 97.7 [degF] Pfo 1 [facility] 03-01-2025 09:45-0400 Body weight 117.03 kg Pfo 1 [facility] 03-01-2025 09:45-0400 Diastolic blood pressure 85 mm[Hg] Pfo 1 [facility] 03-01-2025 09:45-0400 Heart rate 114 /min Pfo 1 [facility] 03-01-2025 09:45-0400 Respiratory rate 18 /min Pfo 1 [facility] 03-01-2025 09:45-0400 SaO2% (BldA) [Mass fraction] 96 % Pfo 1 [facility] 03-01-2025 09:45-0400 Systolic blood pressure 137 mm[Hg] Pfo 1 [facility] 02-01-2025 13:17-0400 Body height 170.2 cm Pfo 1 [facility] 02-01-2025 13:17-0400 Body mass index (BMI) [Ratio] 40.52 kg/m2 Pfo 1 [facility] 02-01-2025 13:17-0400 Body temperature 97.9 [degF] Pfo 1 [facility] 02-01-2025 13:17-0400 Body weight 117.39 kg Pfo 1 [facility] 02-01-2025 13:17-0400 Diastolic blood pressure 79 mm[Hg] Pfo 1 [facility] 02-01-2025 13:17-0400 Heart rate 104 /min Pfo 1 [facility] 02-01-2025 13:17-0400 Respiratory rate 18 /min Pfo 1 [facility] 02-01-2025 13:17-0400 SaO2% (BldA) [Mass fraction] 100 % Pfo 1 [facility] 02-01-2025 13:17-0400 Systolic blood pressure 145 mm[Hg] Pfo 1 [facility] 01-04-2025 10:54-0400 Body height 170.2 cm Pfo 1 [facility] 01-04-2025 10:54-0400 Body mass index (BMI) [Ratio] 40.68 kg/m2 Pfo 1 [facility] 01-04-2025 10:54-0400 Body temperature 97.9 [degF] Pfo 1 [facility] 01-04-2025 10:54-0400 Body weight 117.84 kg Pfo 1 [facility] 01-04-2025 10:54-0400 Diastolic blood pressure 74 mm[Hg] Pfo 1 [facility] 01-04-2025 10:54-0400 Heart rate 101 /min Pfo 1 [facility] 01-04-2025 10:54-0400 Respiratory rate 18 /min Pfo 1 [facility] 01-04-2025 10:54-0400 SaO2% (BldA) [Mass fraction] 99 % Pfo 1 [facility] 01-04-2025 10:54-0400 Systolic blood pressure 136 mm[Hg] Pfo 1 [facility] 12-07-2024 10:50-0400 Body height 170.2 cm Pfo 1 [facility] 12-07-2024 10:50-0400 Body mass index (BMI) [Ratio] 40.59 kg/m2 Pfo 1 [facility] 12-07-2024 10:50-0400 Body temperature 97.39 [degF] Pfo 1 [facility] 12-07-2024 10:50-0400 Body weight 117.57 kg Pfo 1 [facility] 12-07-2024 10:50-0400 Diastolic blood pressure 79 mm[Hg] Pfo 1 [facility] 12-07-2024 10:50-0400 Heart rate 103 /min Pfo 1 [facility] 12-07-2024 10:50-0400 Respiratory rate 18 /min Pfo 1 [facility] 12-07-2024 10:50-0400 SaO2% (BldA) [Mass fraction] 97 % Pfo 1 [facility] 12-07-2024 10:50-0400 Systolic blood pressure 131 mm[Hg] Pfo 1 [facility] 11-09-2024 10:50-0500 Body height 170.2 cm Pfo 5 [facility] 11-09-2024 10:50-0500 Body mass index (BMI) [Ratio] 40.87 kg/m2 Pfo 5 [facility] 11-09-2024 10:50-0500 Body temperature 97.7 [degF] Pfo 5 [facility] 11-09-2024 10:50-0500 Body weight 118.39 kg Pfo 5 [facility] 11-09-2024 10:50-0500 Diastolic blood pressure 84 mm[Hg] Pfo 5 [facility] 11-09-2024 10:50-0500 Heart rate 107 /min Pfo 5 [facility] 11-09-2024 10:50-0500 Respiratory rate 18 /min Pfo 5 [facility] 11-09-2024 10:50-0500 SaO2% (BldA) [Mass fraction] 98 % Pfo 5 [facility] 11-09-2024 10:50-0500 Systolic blood pressure 138 mm[Hg] Pfo 5 [facility] 10-24-2024 12:20-0500 Body mass index (BMI) [Ratio] 40.3 kg/m2 Rajan Sutton MD Work Phone: [facility] 10-24-2024 12:20-0500 Body weight 116.71 kg Rajan Sutton MD Work Phone: [facility] 10-24-2024 12:20-0500 Diastolic blood pressure 80 mm[Hg] Rajan Sutton MD Work Phone: [facility] 10-24-2024 12:20-0500 Heart rate 118 /min Rajan Sutton MD Work Phone: [facility] 10-24-2024 12:20-0500 Systolic blood pressure 118 mm[Hg] Rajan Sutton MD Work Phone: [facility] 10-12-2024 09:25-0500 Body height 170.2 cm Pfo 6 [facility] 10-12-2024 09:25-0500 Body mass index (BMI) [Ratio] 40.37 kg/m2 Pfo 6 [facility] 10-12-2024 09:25-0500 Body temperature 97.59 [degF] Pfo 6 [facility] 10-12-2024 09:25-0500 Body weight 116.94 kg Pfo 6 [facility] 10-12-2024 09:25-0500 Diastolic blood pressure 75 mm[Hg] Pfo 6 [facility] 10-12-2024 09:25-0500 Heart rate 106 /min Pfo 6 [facility] 10-12-2024 09:25-0500 Respiratory rate 18 /min Pfo 6 [facility] 10-12-2024 09:25-0500 SaO2% (BldA) [Mass fraction] 99 % Pfo 6 [facility] 10-12-2024 09:25-0500 Systolic blood pressure 138 mm[Hg] Pfo 6 [facility] 09-08-2024 09:56-0500 Body height 170.2 cm Pfo 1 [facility] 09-08-2024 09:56-0500 Body mass index (BMI) [Ratio] 40.49 kg/m2 Pfo 1 [facility] 09-08-2024 09:56-0500 Body temperature 97.81 [degF] [facility] 09-08-2024 09:56-0500 Body weight 117.3 kg Pfo 1 [facility] 09-08-2024 09:56-0500 Diastolic blood pressure 78 mm[Hg] Pfo 1 [facility] 09-08-2024 09:56-0500 Heart rate 107 /min Pfo 1 [facility] 09-08-2024 09:56-0500 Respiratory rate 16 /min Pfo 1 [facility] 09-08-2024 09:56-0500 SaO2% (BldA) [Mass fraction] 96 % Pfo 1 [facility] 09-08-2024 09:56-0500 Systolic blood pressure 140 mm[Hg] Pfo 1 [facility] 08-11-2024 11:38-0500 Body height 170.2 cm Pfo 7 [facility] 08-11-2024 11:38-0500 Body mass index (BMI) [Ratio] 41.71 kg/m2 Pfo 7 [facility] 08-11-2024 11:38-0500 Body temperature 98.01 [degF] Pfo 7 [facility] 08-11-2024 11:38-0500 Body weight 120.84 kg Pfo 7 [facility] 08-11-2024 11:38-0500 Diastolic blood pressure 74 mm[Hg] Pfo 7 [facility] 08-11-2024 11:38-0500 Heart rate 102 /min Pfo 7 [facility] 08-11-2024 11:38-0500 Respiratory rate 18 /min Pfo 7 [facility] 08-11-2024 11:38-0500 SaO2% (BldA) [Mass fraction] 97 % Pfo 7 [facility] 08-11-2024 11:38-0500 Systolic blood pressure 133 mm[Hg] Pfo 7 [facility] 07-14-2024 11:35-0500 Body height 170.2 cm Pfo 3 [facility] 07-14-2024 11:35-0500 Body mass index (BMI) [Ratio] 41.65 kg/m2 Pfo 3 [facility] 07-14-2024 11:35-0500 Body temperature 98.01 [degF] Pfo 3 [facility] 07-14-2024 11:35-0500 Body weight 120.66 kg Pfo 3 [facility] 07-14-2024 11:35-0500 Diastolic blood pressure 77 mm[Hg] Pfo 3 [facility] 07-14-2024 11:35-0500 Heart rate 98 /min Pfo 3 [facility] 07-14-2024 11:35-0500 Respiratory rate 16 /min Pfo 3 [facility] 07-14-2024 11:35-0500 SaO2% (BldA) [Mass fraction] 100 % Pfo 3 [facility] 07-14-2024 11:35-0500 Systolic blood pressure 133 mm[Hg] Pfo 3 [facility] 06-16-2024 11:28-0400 Body height 170.2 cm Pfo 3 [facility] 06-16-2024 11:28-0400 Body mass index (BMI) [Ratio] 42.3 kg/m2 Pfo 3 [facility] 06-16-2024 11:28-0400 Body temperature 97.81 [degF] Pfo 3 [facility] 06-16-2024 11:28-0400 Body weight 122.53 kg Pfo 3 [facility] 06-16-2024 11:28-0400 Diastolic blood pressure 77 mm[Hg] Pfo 3 [facility] 06-16-2024 11:28-0400 Heart rate 101 /min Pfo 3 [facility] 06-16-2024 11:28-0400 Respiratory rate 16 /min Pfo 3 [facility] 06-16-2024 11:28-0400 SaO2% (BldA) [Mass fraction] 97 % Pfo 3 [facility] 06-16-2024 11:28-0400 Systolic blood pressure 130 mm[Hg] Pfo 3 [facility] 05-19-2024 11:07-0400 Body height 170.2 cm Pfo 4 [facility] 05-19-2024 11:07-0400 Body mass index (BMI) [Ratio] 41.96 kg/m2 Pfo 4 [facility] 05-19-2024 11:07-0400 Body temperature 98.49 [degF] Pfo 4 [facility] 05-19-2024 11:07-0400 Body weight 121.56 kg Pfo 4 [facility] 05-19-2024 11:07-0400 Diastolic blood pressure 74 mm[Hg] Pfo 4 [facility] 05-19-2024 11:07-0400 Heart rate 100 /min Pfo 4 [facility] 05-19-2024 11:07-0400 Respiratory rate 16 /min Pfo 4 [facility] 05-19-2024 11:07-0400 SaO2% (BldA) [Mass fraction] 93 % Pfo 4 [facility] 05-19-2024 11:07-0400 Systolic blood pressure 118 mm[Hg] Pfo 4 [facility] 04-21-2024 11:21-0400 Body height 170.2 cm Pfo 4 [facility] 04-21-2024 11:21-0400 Body mass index (BMI) [Ratio] 42.12 kg/m2 Pfo 4 [facility] 04-21-2024 11:21-0400 Body temperature 98.2 [degF] Pfo 4 [facility] 04-21-2024 11:21-0400 Body weight 122.02 kg Pfo 4 [facility] 04-21-2024 11:21-0400 Diastolic blood pressure 75 mm[Hg] Pfo 4 [facility] 04-21-2024 11:21-0400 Heart rate 108 /min Pfo 4 [facility] 04-21-2024 11:21-0400 Respiratory rate 16 /min Pfo 4 [facility] 04-21-2024 11:21-0400 SaO2% (BldA) [Mass fraction] 98 % Pfo 4 [facility] 04-21-2024 11:21-0400 Systolic blood pressure 106 mm[Hg] Pfo 4 [facility] 04-20-2024 12:45-0400 Body mass index (BMI) [Ratio] 41.61 kg/m2 Rajan Sutton MD Work Phone: [facility] 04-20-2024 12:45-0400 Body weight 120.52 kg Rajan Sutton MD Work Phone: [facility] 04-20-2024 12:45-0400 Diastolic blood pressure 83 mm[Hg] Rajan Sutton MD Work Phone: [facility] 04-20-2024 12:45-0400 Heart rate 106 /min Rajan Sutton MD Work Phone: [facility] 04-20-2024 12:45-0400 Systolic blood pressure 114 mm[Hg] Rajan Sutton MD Work Phone: [facility] 03-23-2024 09:52-0400 Body height 170.2 cm Pfo 4 [facility] 03-23-2024 09:52-0400 Body mass index (BMI) [Ratio] 43.06 kg/m2 Pfo 4 [facility] 03-23-2024 09:52-0400 Body temperature 98.71 [degF] Pfo 4 [facility] 03-23-2024 09:52-0400 Body weight 124.74 kg Pfo 4 [facility] 03-23-2024 09:52-0400 Diastolic blood pressure 64 mm[Hg] Pfo 4 [facility] 03-23-2024 09:52-0400 Heart rate 101 /min Pfo 4 [facility] 03-23-2024 09:52-0400 Respiratory rate 16 /min Pfo 4 [facility] 03-23-2024 09:52-0400 SaO2% (BldA) [Mass fraction] 97 % Pfo 4 [facility] 03-23-2024 09:52-0400 Systolic blood pressure 128 mm[Hg] Pfo 4 [facility] 02-24-2024 10:05-0400 Body height 170.2 cm Pfo 4 [facility] 02-24-2024 10:05-0400 Body mass index (BMI) [Ratio] 44 kg/m2 Pfo 4 [facility] 02-24-2024 10:05-0400 Body temperature 98.49 [degF] Pfo 4 [facility] 02-24-2024 10:05-0400 Body weight 127.46 kg Pfo 4 [facility] 02-24-2024 10:05-0400 Diastolic blood pressure 76 mm[Hg] Pfo 4 [facility] 02-24-2024 10:05-0400 Heart rate 108 /min Pfo 4 [facility] 02-24-2024 10:05-0400 Respiratory rate 16 /min Pfo 4 [facility] 02-24-2024 10:05-0400 SaO2% (BldA) [Mass fraction] 97 % Pfo 4 [facility] 02-24-2024 10:05-0400 Systolic blood pressure 131 mm[Hg] Pfo 4 [facility] 02-18-2024 09:06-0400 Diastolic blood pressure 82 mm[Hg] [facility] 02-18-2024 09:06-0400 Heart rate 98 /min [facility] 02-18-2024 09:06-0400 Respiratory rate 16 /min [facility] 02-18-2024 09:06-0400 Systolic blood pressure 128 mm[Hg] [facility] 01-27-2024 10:49-0400 Body height 170.2 cm Pfo 4 [facility] 01-27-2024 10:49-0400 Body mass index (BMI) [Ratio] 43.69 kg/m2 Pfo 4 [facility] 01-27-2024 10:49-0400 Body temperature 97.9 [degF] Pfo 4 [facility] 01-27-2024 10:49-0400 Body weight 126.55 kg Pfo 4 [facility] 01-27-2024 10:49-0400 Diastolic blood pressure 80 mm[Hg] Pfo 4 [facility] 01-27-2024 10:49-0400 Heart rate 108 /min Pfo 4 [facility] 01-27-2024 10:49-0400 Respiratory rate 16 /min Pfo 4 [facility] [employer] [facility] 01-27-2024 10:49-0400 SaO2% (BldA) [Mass fraction] 97 % Pfo 4 [facility] 01-27-2024 10:49-0400 Systolic blood pressure 131 mm[Hg] Pfo 4 [facility] 01-13-2024 13:19-0400 Body mass index (BMI) [Ratio] 43.53 kg/m2 Bri Kraft MD Work Phone: [facility] 01-13-2024 13:19-0400 Body weight 126.06 kg Bri Kraft MD Work Phone: [facility] 01-13-2024 13:19-0400 Diastolic blood pressure 87 mm[Hg] Bri Kraft MD Work Phone: [facility] 01-13-2024 13:19-0400 Heart rate 116 /min Bri Kraft MD Work Phone: [facility] 01-13-2024 13:19-0400 Systolic blood pressure 146 mm[Hg] Bri Kraft MD Work Phone: [facility] 12-28-2023 11:33-0400 Diastolic blood pressure 72 mm[Hg] Pfo 2 [facility] 12-28-2023 11:33-0400 Heart rate 101 /min Pfo 2 [facility] 12-28-2023 11:33-0400 Respiratory rate 16 /min Pfo 2 [facility] 12-28-2023 11:33-0400 Systolic blood pressure 130 mm[Hg] Pfo 2 [facility] 12-28-2023 09:18-0400 Body height 170.2 cm Pfo 2 [facility] 12-28-2023 09:18-0400 Body mass index (BMI) [Ratio] 39.07 kg/m2 Pfo 2 [facility] [facility] 12-28-2023 09:18-0400 Body temperature 98.01 [degF] Pfo 2 [facility] 12-28-2023 09:18-0400 Body weight 113.17 kg Pfo 2 [facility] 12-28-2023 09:18-0400 SaO2% (BldA) [Mass fraction] 99 % Pfo 2 [facility] 11-25-2023 09:53-0400 Body height 170.2 cm Pfo 7 [facility] 11-25-2023 09:53-0400 Body mass index (BMI) [Ratio] 39.77 kg/m2 Pfo 7 [facility] 11-25-2023 09:53-0400 Body temperature 97.81 [degF] Pfo 7 [facility] 11-25-2023 09:53-0400 Body weight 115.21 kg Pfo 7 [facility] 11-25-2023 09:53-0400 Diastolic blood pressure 79 mm[Hg] Pfo 7 [facility] 11-25-2023 09:53-0400 Heart rate 111 /min Pfo 7 [facility] 11-25-2023 09:53-0400 Respiratory rate 18 /min Pfo 7 [facility] 11-25-2023 09:53-0400 SaO2% (BldA) [Mass fraction] 99 % Pfo 7 [facility] 11-25-2023 09:53-0400 Systolic blood pressure 134 mm[Hg] Pfo 7 [facility] 10-28-2023 09:52-0500 Body height 170.2 cm Pfo 7 [facility] 10-28-2023 09:52-0500 Body mass index (BMI) [Ratio] 41.96 kg/m2 Pfo 7 [facility] 10-28-2023 09:52-0500 Body temperature 97.59 [degF] Pfo 7 [facility] 10-28-2023 09:52-0500 Body weight 121.56 kg Pfo 7 [facility] 10-28-2023 09:52-0500 Diastolic blood pressure 70 mm[Hg] Pfo 7 [facility] 10-28-2023 09:52-0500 Heart rate 106 /min Pfo 7 [facility] 10-28-2023 09:52-0500 Respiratory rate 18 /min Pfo 7 [facility] 10-28-2023 09:52-0500 SaO2% (BldA) [Mass fraction] 97 % Pfo 7 [facility] 10-28-2023 09:52-0500 Systolic blood pressure 124 mm[Hg] Pfo 7 [facility] 10-12-2023 11:25-0500 Body mass index (BMI) [Ratio] 42.01 kg/m2 Bri Kraft MD Work Phone: [facility] 10-12-2023 11:25-0500 Body weight 121.66 kg Bri Kraft MD Work Phone: [facility] 10-12-2023 11:25-0500 Diastolic blood pressure 86 mm[Hg] Bri Kraft MD Work Phone: [facility] 10-12-2023 11:25-0500 Heart rate 108 /min Bri Kraft MD Work Phone: [facility] 10-12-2023 11:25-0500 Systolic blood pressure 129 mm[Hg] Bri Kraft MD Work Phone: [facility] 09-30-2023 13:04-0500 Body height 170.2 cm Pfo 7 [facility] 09-30-2023 13:04-0500 Body mass index (BMI) [Ratio] 42.9 kg/m2 Pfo 7 [facility] 09-30-2023 13:04-0500 Body temperature 97.81 [degF] Pfo 7 [facility] 09-30-2023 13:04-0500 Body weight 124.29 kg Pfo 7 [facility] 09-30-2023 13:04-0500 Diastolic blood pressure 74 mm[Hg] Pfo 7 [facility] 09-30-2023 13:04-0500 Heart rate 103 /min Pfo 7 [facility] 09-30-2023 13:04-0500 Respiratory rate 18 /min Pfo 7 [facility] 09-30-2023 13:04-0500 SaO2% (BldA) [Mass fraction] 95 % Pfo 7 [facility] 09-30-2023 13:04-0500 Systolic blood pressure 121 mm[Hg] Pfo 7 [facility] 04-20-2023 08:57-0400 Body mass index (BMI) [Ratio] 41.97 kg/m2 Bri Kraft MD Work Phone: [facility] 04-20-2023 08:57-0400 Body weight 121.56 kg Bri Kraft MD Work Phone: [facility] 04-20-2023 08:57-0400 Diastolic blood pressure 88 mm[Hg] Bri Kraft MD Work Phone: [facility] 04-20-2023 08:57-0400 Heart rate 99 /min Bri Kraft MD Work Phone: [facility] 04-20-2023 08:57-0400 Systolic blood pressure 129 mm[Hg] Bri Kraft MD Work Phone: [facility] 10-19-2022 09:21-0500 Body mass index (BMI) [Ratio] 45.36 kg/m2 Anika Baker BOARD WRITER Work Phone: [facility] 10-19-2022 09:21-0500 Body weight 131.36 kg Anika Baker BOARD WRITER Work Phone: [facility] 10-19-2022 09:21-0500 Diastolic blood pressure 86 mm[Hg] Anika Baker BOARD WRITER Work Phone: [facility] 10-19-2022 09:21-0500 Heart rate 103 /min Anika Baker BOARD WRITER Work Phone: [facility] 10-19-2022 09:21-0500 Systolic blood pressure 138 mm[Hg] Anika Baker BOARD WRITER Work Phone: [facility] 05-04-2022 13:06-0400 Body mass index (BMI) [Ratio] 46.08 kg/m2 Bri Kraft MD Work Phone: [facility] 05-04-2022 13:06-0400 Body weight 133.45 kg Bri Kraft MD Work Phone: [facility] 05-04-2022 13:06-0400 Diastolic blood pressure 4 mm[Hg] Bri Kraft MD Work Phone: [facility] 05-04-2022 13:06-0400 Heart rate 105 /min Bri Kraft MD Work Phone: [facility] 05-04-2022 13:06-0400 Systolic blood pressure 125 mm[Hg] Bri Kraft MD Work Phone: [facility] 10-28-2021 13:03-0500 Body mass index (BMI) [Ratio] 43.1 kg/m2 Bri Kraft MD Work Phone: [facility] 10-28-2021 13:03-0500 Body weight 124.83 kg Bri Kraft MD Work Phone: [facility] 10-28-2021 13:03-0500 Diastolic blood pressure 84 mm[Hg] Bri Kraft MD Work Phone: [facility] 10-28-2021 13:03-0500 Heart rate 112 /min Bri Kraft MD Work Phone: [facility] 10-28-2021 13:03-0500 Systolic blood pressure 130 mm[Hg] Bri Kraft MD Work Phone: [facility] 08-14-2021 17:24-0500 Body temperature 97.9 [degF] Chair 10b [facility] 08-14-2021 17:24-0500 Diastolic blood pressure 78 mm[Hg] Chair 10b [facility] 08-14-2021 17:24-0500 Heart rate 95 /min Chair 10b [facility] 08-14-2021 17:24-0500 SaO2% (BldA) [Mass fraction] 98 % Chair 10b [facility] 08-14-2021 17:24-0500 Systolic blood pressure 115 mm[Hg] Chair 10b [facility] 08-14-2021 14:37-0500 Respiratory rate 16 /min Chair 10b [facility] 07-16-2021 14:32-0500 Body temperature 98.01 [degF] Chair 4 [facility] 07-16-2021 14:32-0500 Diastolic blood pressure 82 mm[Hg] Chair 4 [facility] 07-16-2021 14:32-0500 Heart rate 101 /min Chair 4 [facility] 07-16-2021 14:32-0500 SaO2% (BldA) [Mass fraction] 93 % Chair 4 [facility] 07-16-2021 14:32-0500 Systolic blood pressure 118 mm[Hg] Chair 4 [facility] 07-14-2021 11:34-0500 Body mass index (BMI) [Ratio] 44.58 kg/m2 Bri Kraft MD Work Phone: [facility] 07-14-2021 11:34-0500 Body weight 121.52 kg Bri Kraft MD Work Phone: [facility] 07-14-2021 11:34-0500 Diastolic blood pressure 85 mm[Hg] Bri Kraft MD Work Phone: [facility] 07-14-2021 11:34-0500 Heart rate 109 /min Bri Kraft MD Work Phone: [facility] 07-14-2021 11:34-0500 Systolic blood pressure 127 mm[Hg] Bri Kraft MD Work Phone: [facility] 05-21-2021 15:01-0400 Body temperature 98.2 [degF] Chair [address] [place] [address] 05-21-2021 15:01-0400 Diastolic blood pressure 78 mm[Hg] Chair 10b [facility] 05-21-2021 15:01-0400 Heart rate 94 /min Chair 10b [facility] 05-21-2021 15:01-0400 Respiratory rate 14 /min [address] 05-21-2021 15:01-0400 SaO2% (BldA) [Mass fraction] 96 % Chair 10b [facility] 05-21-2021 15:01-0400 Systolic blood pressure 122 mm[Hg] [facility] 10b [facility] 04-15-2021 12:52-0400 Body mass index (BMI) [Ratio] 44.08 kg/m2 Bri Kraft MD Work Phone: [facility] 04-15-2021 12:52-0400 Body weight 120.16 kg Bri Kraft MD Work Phone: [facility] 04-15-2021 12:52-0400 Diastolic blood pressure 87 mm[Hg] Bir Kraft MD Work Phone: [facility] 04-15-2021 12:52-0400 Heart rate 112 /min Bri Kraft MD Work Phone: [facility] 04-15-2021 12:52-0400 Systolic blood pressure 133 mm[Hg] Bri Kraft MD Work Phone: [facility] 03-20-2021 10:53-0400 Body weight 120.79 kg Bri Kraft MD Work Phone: [facility] 03-20-2021 10:53-0400 Diastolic blood pressure 95 mm[Hg] Bri Kraft MD Work Phone: [facility] 03-20-2021 10:53-0400 Heart rate 111 /min Bri Kraft MD Work Phone: [facility] 03-20-2021 10:53-0400 Systolic blood pressure 142 mm[Hg] Bri Kraft MD Work Phone: [facility] Encounters Encounter Date Encounter Type Care Provider Facility Start: 05-29-2026 ambulatory Avelina L Carlos Facility: [facility] Start: 07-20-2025 ambulatory Avelina L Carlos Facility: [facility] Start: 05-29-2025 End: 05-29-2025 ambulatory [facility] Start: 05-28-2025 End: 05-28-2025 ambulatory Rex Hamm Facility:[facility] Start: 05-24-2025 End: 05-24-2025 ambulatory Pfo Infusion Bed 1 Naheed lam [place] [facility] Comment on above: Multiple sclerosis ( [facility]-HCC) (Primary Dx) Start: 05-15-2025 End: 05-15-2025 ambulatory [facility] Start: 05-04-2025 End: 05-04-2025 Refill Jared Wheeler LPN [facility] Comment on above: MS (multiple scleros is) (HCC) Start: 05-01-2025 End: 05-01-2025 ambulatory [facility] Start: 04-26-2025 End: 04-26-2025 ambulatory Pfo Infusion Bed 1 Naheed lam [facility] Comment on above: Multiple sclerosis ( CMS-HCC) (Primary Dx) Start: 04-25-2025 End: 04-25-2025 Office outpatient visit 40 minutes Bri Kraft MD Work Phone: [facility], Neuroscience Comment on above: MS (multiple scleros is) (HCC) (Primary Dx) Start: 04-25-2025 End: 04-29-2025 ambulatory [facility] Start: 04-25-2025 End: 04-25-2025 ambulatory [facility] Start: 04-20-2025 End: 04-20-2025 ambulatory Lili Hatfield Facility:[facility] Start: 04-20-2025 End: 04-20-2025 Patient encounter procedure Lili Hatfield [facility] Start: 04-19-2025 End: 04-19-2025 Refill Jared Wheeler LPN [facility] Comment on above: Seizures (HCC) Start: 04-02-2025 End: 04-02-2025 ambulatory Lili Hatfield Facility:[facility] Start: 03-30-2025 End: 03-30-2025 ambulatory [facility] Start: 03-29-2025 End: 03-29-2025 ambulatory Pfo Infusion Bed 1 Naheed lam [facility] Comment on above: Multiple sclerosis ( CMS-HCC) (Primary Dx) Start: 03-27-2025 End: 03-28-2025 Refill Bri Kraft MD Work Phone: [facility] Start: 03-26-2025 End: 03-26-2025 ambulatory Lili Hatfield Facility:[facility] Start: 03-26-2025 End: 03-26-2025 Patient encounter procedure Lili Hatfield [facility] Start: 03-21-2025 End: 03-21-2025 ambulatory SURESH Toussaint DAVIDSON [facility] Start: 03-15-2025 ambulatory Lili Hatfield Facilit y:[facility] Start: 03-14-2025 End: 03-14-2025 ambulatory BOARD WRITER ANTONETTE LOERA Facility:[facility] Start: 03-01-2025 End: 03-01-2025 ambulatory Pfo Infusion Bed 1 Naheed lam [facility] Medical [facility] Comment on above: Multiple sclerosis ( [facility]-HCC) (Primary Dx) Start: 02-28-2025 End: 02-28-2025 ambulatory [place] Odalys [facility] Start: 02-21-2025 End: 02-21-2025 ambulatory BOARD WRITER ANTONETTE LOERA Facility:[facility] Start: 02-21-2025 End: 02-21-2025 Patient encounter procedure ANTONETTE LOERA [facility] Start: 02-19-2025 End: 02-19-2025 ambulatory Rex Hamm Facility:[facility] Start: 02-19-2025 End: 02-19-2025 Patient encounter procedure Rex Hamm [facility] Start: 02-14-2025 End: 02-14-2025 ambulatory [place] Odalys [facility] Start: 02-01-2025 End: 02-02-2025 ambulatory Pfo Infusion Bed 1 Naheed lam [facility] Comment on above: Multiple sclerosis ( [facility]-H[facility]) (Primary Dx) Start: 01-16-2025 End: 01-16-2025 Lab Drop off Rex Hamm [facility] Start: 01-16-2025 End: 01-16-2025 ambulatory Rex CastErick Hamm Facility:[facility] Start: 01-09-2025 End: 01-09-2025 ambulatory [facility] Start: 01-04-2025 End: 01-04-2025 ambulatory Pfo Infusion Bed 1 Naheed lam [facility] Comment on above: Multiple sclerosis ( [facility]) (Primary Dx) Start: 12-26-2024 End: 12-26-2024 ambulatory [facility] Start: 12-12-2024 End: 12-12-2024 ambulatory SURESH Toussaint [facility] Start: 12-07-2024 End: 12-07-2024 ambulatory Pfo Infusion Bed 1 Naheed lam [facility] Medical [facility]cology Comment on above: Multiple sclerosis ( [facility]) (Primary Dx) Start: 11-28-2024 End: 11-28-2024 ambulatory [facility] Start: 11-14-2024 End: 11-14-2024 ambulatory [facility] Start: 11-09-2024 End: 11-09-2024 ambulatory Pfo Infusion Chair 5 Naheed Valentin [facility] Medical Oncology Comment on above: Multiple sclerosis ( [facility]-H[facility]) (Primary Dx) Start: 11-07-2024 End: 11-07-2024 Emergency department patient visit REX HAMM [facility] Start: 11-07-2024 End: 11-07-2024 Emergency department patient visit REX HAMM [facility] Start: 10-31-2024 End: 10-31-2024 ambulatory [facility] Start: 10-24-2024 End: 10-24-2024 Emergency department patient visit REX HAMM [facility] Start: 10-24-2024 End: 10-24-2024 Office outpatient visit 40 minutes Bri Kraft MD Work Phone: [facility] Comment on above: Therapeutic drug mon itoring (Primary Dx); Multiple sclerosis (HCC); Vitamin D deficiency Start: 10-24-2024 End: 10-24-2024 ambulatory RAJAN SUTTON [facility] Start: 10-17-2024 End: 10-18-2024 Refill Rajan Sutton MD Work Phone: [facility] Comment on above: Seizures (HCC); MS (multiple sclerosis) (HCC) Start: 10-16-2024 End: 10-17-2024 Refill Bri Kraft MD Work Phone: [facility] Comment on above: Seizures (HCC); MS (multiple sclerosis) (HCC) Start: 10-12-2024 End: 10-12-2024 ambulatory Pfo Infusion Chair 6 Naheed Valentin [facility] - Medical Oncology Comment on above: Multiple sclerosis ( [facility]-H[facility]) (Primary Dx) Start: 10-10-2024 End: 10-10-2024 ambulatory [facility] Start: 10-05-2024 End: 10-05-2024 Orders Only Emilie Hall [facility] Work Phone: Naheed Valentin [facility] - [facility] Start: 09-27-2024 End: 10-04-2024 Refill Bri Kraft MD Work Phone: [facility] Neuro[facility] Comment on above: MS (multiple scleros is) (HCC) Start: 09-20-2024 End: 09-20-2024 ambulatory [facility] Start: 09-08-2024 End: 09-08-2024 ambulatory Pfo Infusion Bed 1 Naheed Valentin [facility] - Medical Oncology Comment on above: Multiple sclerosis ( [facility]-H[facility]) (Primary Dx) Start: 08-17-2024 End: 08-17-2024 ambulatory [facility] Start: 08-11-2024 End: 08-11-2024 ambulatory Pfo Infusion Chair 7 Naheed Valentin [facility] - Medical Oncology Comment on above: Multiple sclerosis ( [facility]-H[facility]) (Primary Dx) Start: 07-18-2024 End: 07-18-2024 ambulatory Rex Hamm Facility:[facility] Start: 07-14-2024 End: 07-14-2024 ambulatory Pfo Infusion Chair 3 Naheed Valentin [facility] - Medical Oncology Comment on above: Multiple sclerosis ( [facility]-H[facility]) (Primary Dx) Start: 07-04-2024 End: 07-04-2024 ambulatory [facility] Start: 06-16-2024 End: 06-16-2024 ambulatory Pfo Infusion Chair 3 Naheed Valentin [facility] - [facility] Oncology Comment on above: Multiple sclerosis ( [facility]-HCC) (Primary Dx) Start: 06-13-2024 End: 06-13-2024 ambulatory [facility] Start: 05-29-2024 End: 05-26-2024 Pre-admission assessment Rex Hamm [facility] Start: 05-22-2024 End: 06-01-2024 Pre-admission assessment Rex Hamm [facility] Start: 05-19-2024 End: 05-19-2024 ambulatory Pfo Infusion Chair 4 Naheed Valentin [facility] - [facility] Oncology Comment on above: Multiple sclerosis ( CMS-HCC) (Primary Dx) Start: 04-21-2024 End: 04-21-2024 ambulatory Pfo Infusion Chair 4 Naheed Valentin [facility] - [facility] Oncology Comment on above: Multiple sclerosis ( CMS-HCC) (Primary Dx) Start: 04-20-2024 End: 04-20-2024 Office outpatient visit 25 minutes Bri Kraft MD Work Phone: [facility] Comment on above: Multiple sclerosis ( HCC) (Primary Dx); Therapeutic drug monitoring Start: 03-23-2024 End: 03-23-2024 ambulatory Pfo Infusion Chair 4 Naheed Valentin [facility] - [facility] Oncology Comment on above: Multiple sclerosis ( CMS-HCC) (Primary Dx) Start: 03-17-2024 End: 03-17-2024 Refill Alfonso Pop MA [facility] Comment on above: Multiple sclerosis ( HCC); MS (multiple sclerosis) (HCC) Start: 03-01-2024 End: 03-01-2024 Refill Alfonso Pop MA [facility] Comment on above: Multiple sclerosis ( HCC); Seizures (HCC); MS (multiple sclerosis) (HCC) Start: 02-24-2024 End: 02-24-2024 ambulatory Pfo Infusion Chair 4 Naheed Valentin [facility] - [facility] Oncology Comment on above: Multiple sclerosis ( CMS-HCC) (Primary Dx) Start: 02-18-2024 End: 02-18-2024 Patient encounter procedure Ryan Milton [facility] Start: 02-03-2024 End: 02-03-2024 Patient encounter procedure Rex Hamm [facility] Start: 01-27-2024 End: 01-27-2024 ambulatory Pfo Infusion Chair 4 Naheed Valentin [facility] - Medical Oncology Comment on above: Multiple sclerosis ( [facility]-H[facility]) (Primary Dx) Start: 01-13-2024 End: 01-13-2024 Office outpatient visit 40 minutes Bri Kraft MD Work Phone: [facility] Comment on above: MS (multiple scleros is) (HCC) (Primary Dx); Chronic fatigue; Syncope, unspecified syncope type Start: 01-12-2024 End: 01-12-2024 ambulatory Pfo Infusion Chair 1 Naheed Valentin [facility] - Medical Oncology Comment on above: Multiple sclerosis ( CMS-HCC) (Primary Dx) Start: 12-28-2023 End: 12-28-2023 ambulatory Pfo Infusion Chair 2 Naheed Valentin [facility] - [facility] Oncology Comment on above: Multiple sclerosis ( CMS-HCC) (Primary Dx) Start: 12-23-2023 End: 12-23-2023 Telephone encounter Tala Villalba [facility] - Medical Oncology Start: 12-15-2023 End: 12-15-2023 Lab Drop off Rex Hamm [facility] Start: 12-09-2023 Jose Russell MD Work Phone: [facility] Comment on above: MS (multiple scleros is) (HCC) Start: 11-25-2023 End: 11-25-2023 ambulatory Pfo Infusion Chair 7 Naheed Cee [place] [facility] Comment on above: Multiple sclerosis ( CMS-HCC) (Primary Dx) Start: 10-28-2023 End: 10-28-2023 [facility] on above: Multiple sclerosis ( CMS-HCC) (Primary Dx) Start: 10-25-2023 End: 10-25-2023 Patient encounter procedure Rex Hamm [facility] Start: 10-12-2023 End: 10-12-2023 Office outpatient visit 40 minutes Bri Kraft MD Work Phone: [facility] Comment on above: MS (multiple scleros is) (HCC) (Primary Dx); Migraine without aura and without status migrainosus, not intractable; Seizure ([facility]); Gait abnormality Start: [facility]04-[facility] Start: 09-30-2023 End: 09-30-2023 ambulatory Pfo Infusion Chair 7 Naheed Cee [place] [facility] Comment on above: Multiple sclerosis ( CMS-HCC) (Primary Dx) Start: 09-20-2023 Orders Only Emilie Mendoza [facility] Work Phone: Naheed Cee [place] [facility] Start: 09-13-2023 Jose Russell MD Work Phone: [facility] Comment on above: MS (multiple scleros is) (HCC) Start: 06-18-2023 End: 06-18-2023 Lab Drop off Rex Guerin Hansel [facility] Start: 04-30-2023 Chart abstracting Bri Kraft MD Work Phone: [facility] Start: 04-29-2023 Chart abstracting Ce Sweet RN [facility] Start: 04-20-2023 End: 04-20-2023 Office outpatient visit 40 minutes Bri Kraft MD Work Phone: [facility] Comment on above: Chronic fatigue; MS (multiple sclerosis) (HCC); Vitamin D deficiency Start: 10-29-2022 Chart abstracting Anika Masters CNP Work Phone: [facility] Start: 10-26-2022 End: 10-26-2022 ambulatory [facility] Start: 10-19-2022 End: 10-19-2022 Office outpatient visit 25 minutes Anika Baker CNP Work Phone: [facility] Comment on above: Multiple sclerosis ( HCC) (Primary Dx); Encounter for long-term (current) use of high-risk medication; Poor intravenous access Start: 09-23-2022 End: 09-24-2022 ambulatory ALHAJI HERNANDEZ Facility:[facility] Start: 09-11-2022 Refill Aamir Morrison LPN [facility] Comment on above: MS (multiple scleros is) (HCC) (Primary Dx) Start: 05-04-2022 Chart abstracting Bri Kraft MD Work Phone: [facility] Start: 05-04-2022 End: 05-04-2022 Office outpatient visit 40 minutes Bri Kraft MD Work Phone: [facility] Comment on above: MS (multiple scleros is) (HCC) (Primary Dx); Vitamin D deficiency Start: 04-19-2022 End: 04-20-2022 ambulatory SOTO FLOR Facility:[facility] Start: 03-04-2022 End: 03-04-[address] MEDARDO WALKER Facility:[facility] Start: 10-28-2021 End: 10-28-2021 Office outpatient visit 25 minutes Bri Kraft MD Work Phone: [facility] Comment on above: MS (multiple scleros is) (HCC) (Primary Dx); Vitamin D deficiency Start: 10-16-2021 Documentation procedure Ce Posada RN [facility] Comment on above: TOUCH resamantahorijennifertio n Start: 08-14-2021 End: 08-14-2021 ambulatory Bri Kraft MD Work Phone: [facility] Comment on above: MS (multiple scleros is) (HCC) (Primary Dx) Start: 08-06-2021 Coordination of care plan Josephine Thorne RN [facility] Start: 07-16-2021 End: 07-16-2021 ambulatory Bri Kraft MD Work Phone: [facility] Comment on above: MS (multiple scleros is) (HCC) (Primary Dx) Start: 07-14-2021 End: 07-14-2021 Office outpatient visit 25 minutes Bri Kraft MD Work Phone: [facility] Comment on above: MS (multiple scleros is) (HCC) (Primary Dx) Start: 07-08-2021 Coordination of care plan Josephine Thorne RN [facility] Start: 06-05-2021 Coordination of care plan Josephine Thorne RN [facility] Start: 05-21-2021 End: 05-21-2021 ambulatory Bri Kraft MD Work Phone: [facility] Comment on above: MS (multiple scleros is) (HCC) (Primary Dx) Start: 04-15-2021 End: 04-15-2021 Office outpatient visit 25 minutes Bri Kraft MD Work Phone: [facility] Comment on above: Abnormal SPEP (Prima ry Dx); MS (multiple sclerosis) ([facility]) Start: 04-14-2021 End: 04-15-2021 ambulatory [facility] Start: 04-14-2021 End: 04-14-2021 Subsequent hospital visit by physician Sr Rik DALY Work Phone: [facility] Start: 03-20-2021 End: 03-20-2021 Office outpatient visit 25 minutes Bri Kraft MD Work Phone: [facility] Comment on above: Chronic fatigue (Ela josephine Dx); MS (multiple sclerosis) ([facility]); Encounter for screening for other viral diseases ; Mild cognitive impairment, so stated ; Vitamin D deficiency; Unspecified disorder of visual pathways Start: 03-19-2021 End: 03-19-2021 Chart abstracting Bri Kraft MD Work Phone: [facility] Start: 09-10-2020 End: 09-13-2020 [facility] Start: 09-10-2020 End: 09-12-2020 Subsequent hospital visit by physician [facility] MRI Comment on above: Memory loss; MS (multiple sclerosis) ([facility]) Start: 06-27-2020 End: 06-30-2020 ambulatory BRITNI Ardon [facility] Start: 06-27-2020 End: 06-29-2020 Subsequent hospital visit by physician [facility] Comment on above: Deficiencies of limb s; Weakness of both lower extremities; Urinary incontinence, unspecified type; Low back pain, unspecified back pain laterality, unspecified chronicity, unspecified whether sciatica present; Decreased patellar reflex; Sensory abnormality of lumbar dermatome distribution Start: 12-20-2019 End: 12-22-2019 Subsequent hospital visit by physician [facility] Comment on above: Enlarged blind spot of right eye Start: 04-02-2019 End: 04-04-2019 Evaluation and management of inpatient SR WON HERNANDEZ [facility] Procedures Date Procedure Procedure Detail Performing Clinician Start: 04-02-2025 Colonoscopy Lili Hatfield Comment on above: IH and anal skin tags Start: 04-02-2025 Esophagogastroduodenoscopy Lili weiss Comment on above: Bioipsy for Lopez's esophagus, HH and Gastritis Start: 10-24-2024 25 hydroxy includes fractions if performed Rajan Sutton MD Work Phone: Start: 10-24-2024 Hepatic function panel Rajan Sutton MD Work Phone: Start: 06-13-2024 Follow-up visit Follow-up SANCHO HANNA Start: 04-20-2024 Blood count complete auto&auto difrntl wbc Rajan Sutton MD Work Phone: Start: 04-20-2024 Red blood cell morphology Rajan Sutton MD Work Phone: Start: 04-20-2023 EXT STRATIFY JCV ANTIBODY WTIH INDEX AND REFLEX TO INHIBITION Historical Provider Start: 04-20-2023 MISCELLANEOUS LAB TEST Historical Provider Start: 10-19-2022 EXT STRATIFY JCV ANTIBODY WTIH INDEX AND REFLEX TO INHIBITION Anika Baker BOARD WRITER Work Phone: Start: 10-19-2022 Adult depression screening assessment Anika Baker BOARD WRITER Work Phone: Start: 10-15-2022 Port (substance) Rex Hamm Comment on above: placement, right side Start: 07-14-2021 Adult depression screening assessment Aamir Morrison ENDBANDER Start: 04-14-2021 Hepatitis b surf antibody hbsab Sr Chanel es P House DO Work Phone: Start: 04-14-2021 Protein electrophoretic fractj&quantj serum Sr Won P House DO Work Phone: Start: 09-10-2020 Mri brain brain stem w/o w/contrast material Britni Bob Work Phone: Start: 06-27-2020 Comprehensive metabolic panel BRITNI AKERS Start: 06-27-2020 Mri spinal canal lumbar w/o contrast material Britni Bob Work Phone: Start: 06-27-2020 Comprehensive metabolic panel Britni akers Work Phone: Start: 12-20-2019 Mri brain brain stem w/o w/contrast material Frank Davila Work Phone: Start: 04-04-2019 DME ORDER FOR BATH/SHOWER SEAT AT OP [facility] HOUSE Start: 04-04-2019 Blood count complete auto&auto difrntl wbc [facility] Start: 04-04-2019 Comprehensive metabolic panel [facility] Start: 04-04-2019 PULSE OXIMETRY, CONTINUOUS [facility] Start: 04-04-2019 DISCHARGE PATIENT [facility] Start: 04-04-2019 Level iv surg pathology gross&microscopic exam [facility] Start: 04-04-2019 PULSE OXIMETRY, CONTINUOUS [facility] Start: 04-04-2019 DIET GENERAL [facility] Start: 04-04-2019 Cytopath fl nongyn, sm/fltr [facility] Start: 04-04-2019 Cell count misc body fluids w/differential count [facility] Start: 04-04-2019 Glucose body fluid other than blood [facility] Start: 04-04-2019 Myelin basic protein cerebrospinal fluid [facility] Start: 04-04-2019 Oligoclonal immune [facility] Start: 04-04-2019 Protein total xcpt refractometry ot src [facility] Start: 04-04-2019 Spinal puncture lumbar diagnostic SR YEVGENIY SE Start: 04-04-2019 INITIATE OXYGEN THERAPY PROTOCOL SR HOUS E Start: 04-04-2019 PULSE OXIMETRY, CONTINUOUS SR HOU[facility] Start: 04-04-2019 Prothrombin time [facility] Start: 04-04-2019 Thromboplastin time partial plasma/whole blood [facility] Start: 04-04-2019 Blood count complete auto&auto difrntl wbc [facility] Start: 04-04-2019 Comprehensive metabolic panel [facility] Start: 04-04-2019 PULSE OXIMETRY, CONTINUOUS [facility] Start: 04-04-2019 MISCELLANEOUS NURSING CARE ORDER (SPECIFY) [facility] Start: 04-04-2019 PULSE OXIMETRY, CONTINUOUS [facility] Start: 04-03-2019 PULSE OXIMETRY, CONTINUOUS [facility] Start: 04-03-2019 PULSE OXIMETRY, CONTINUOUS [facility] Start: 04-03-2019 PULSE OXIMETRY, CONTINUOUS [facility] Start: 04-03-2019 MISCELLANEOUS NURSING CARE ORDER (SPECIFY) [facility] Start: 04-03-2019 INITIATE OXYGEN THERAPY PROTOCOL SR [facility] E Start: 04-03-2019 PULSE OXIMETRY, CONTINUOUS [facility] Start: 04-03-2019 Blood count complete auto&auto difrntl wbc [facility] Start: 04-03-2019 Hemoglobin glycosylated a1c [facility] HOU[facility] Start: 04-03-2019 Lipid panel [facility] Start: 04-03-2019 PULSE OXIMETRY, CONTINUOUS [facility] Start: 04-03-2019 PULSE OXIMETRY, CONTINUOUS [facility] Start: 04-02-2019 PULSE OXIMETRY, CONTINUOUS [facility] Start: 04-02-2019 Localize cerebral seizure cable/radio eeg/video [facility] Start: 04-02-2019 Mri brain brain stem w/o w/contrast material [facility] Start: 04-02-2019 Mri spinal canal cervical w/o & w/contr matrl [facility] Start: 04-02-2019 PULSE OXIMETRY, CONTINUOUS [facility] Start: 04-02-2019 Drug screen class list a [facility] Start: 04-02-2019 Protein total xcpt refractometry urine [facility] Start: 04-02-2019 PULSE OXIMETRY, CONTINUOUS [facility] Start: 04-02-2019 Antinuclear antibodies rina [facility] Start: 04-02-2019 Assay of thyroid stimulating hormone tsh [facility] Start: 04-02-2019 Cyanocobalamin vitamin b-12 [facility] Start: 04-02-2019 Hemoglobin glycosylated a1c [facility] Start: 04-02-2019 Sedimentation rate rbc automated [facility] Start: 04-02-2019 IP CONSULT TO INTERNAL MEDICINE [facility] Start: 04-02-2019 INITIATE OXYGEN THERAPY PROTOCOL [facility] Start: 04-02-2019 PULSE OXIMETRY, CONTINUOUS SR HOU[facility] Start: 04-02-2019 Ct angiography head w/contrast/noncontrast [facility] Start: 04-02-2019 Blood count complete auto&auto difrntl wbc [facility] Start: 04-02-2019 Comprehensive metabolic panel [facility] Start: 04-02-2019 Drug assay valproic dipropylacetic acid total [facility] Start: 04-02-2019 PULSE OXIMETRY, CONTINUOUS [facility] Start: 04-02-2019 FULL CODE [facility] Start: 04-02-2019 INITIATE OXYGEN THERAPY PROTOCOL [facility] Start: 04-02-2019 NIHSS SR HOUSE Start: 04-02-2019 PLACE INTERMITTENT PNEUMATIC COMPRESSION DEVICE [facility] HOU[facility] Start: 04-02-2019 REASON FOR NOT SELECTING ANTILIPEMIC [facility] Start: 04-02-2019 VITAL SIGNS - NOTIFY MD [facility] Start: 04-02-2019 ELEVATE HEELS OFF OF BED SR HOUSE Start: 04-02-2019 HEAD OF BED 60 DEGREES OR LESS [facility] HOU[facility] Start: 04-02-2019 NURSING COMMUNICATION [facility] Start: 04-02-2019 TURN PATIENT [facility] Start: 04-02-2019 ADVANCE DIET TOLERATED (NURSING COMMUNICATION) [facility] Start: 04-02-2019 IP CONSULT TO CASE MANAGEMENT [facility] Start: 04-02-2019 NEURO CHECKS [facility] Start: 04-02-2019 NOTIFY PHYSICIAN (SPECIFY) [facility] Start: 04-02-2019 NURSING SWALLOW ASSESSMENT [facility] Start: 04-02-2019 OT EVAL AND TREAT [facility] Start: 04-02-2019 PT EVAL AND TREAT [facility] Start: 04-02-2019 PULSE OXIMETRY, CONTINUOUS [facility] Start: 04-02-2019 REASON FOR NO MECHANICAL VTE PROPHYLAXIS SR HOU[facility] Start: 04-02-2019 SEIZURE PRECAUTIONS [facility] Start: 04-02-2019 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 [facility] Start: 04-02-2019 TELEMETRY MONITORING [facility] Start: 04-02-2019 VITAL SIGNS [facility] Start: 04-02-2019 PATIENT STATUS (FROM ED OR OR/PROCEDURAL) [facility] Start: 04-02-2019 IP CONSULT TO NEUROLOGY [facility] Start: 10-17-2016 Total hysterectomy Rex Hamm Start: 10-25-2015 Partial hysterectomy Rex Hamm Start: 12-19-2012 Tonsillectomy Rex Hamm Start: 07-06-2008 Cholecystectomy Rex Hamm Start: 05-23-2008 Ligation of fallopian tube Rex Hamm Start: 05-23-2008 section Rex Hamm Start: 07-02-2003 section Rex Hamm Structure of carpal canal (body structure) Rex Hamm Comment on above: 2016 Plan of Treatment Date Care Activity Detail Author Start: 04-26-2026 Adult BMI Screening Adult BMI Screening [facility] Start: 04-26-2026 Tobacco Screening Tobacco Screening [facility] Start: 03-21-2026 Tobacco Screening Tobacco Screening [facility] Start: 03-01-2026 Adult BMI Screening Adult BMI Screening [facility] Start: 03-01-2026 Tobacco Screening Tobacco Screening [facility] Start: 02-01-2026 Adult BMI Screening Adult BMI Screening [facility] Start: 02-01-2026 Tobacco Screening Tobacco Screening [facility] Start: 01-04-2026 Adult BMI Screening Adult BMI Screening [facility] Start: 01-04-2026 Tobacco Screening Tobacco Screening [facility] Start: 11-09-2025 Adult BMI Screening Adult BMI Screening [facility] Start: 11-09-2025 Tobacco Screening Tobacco Screening [facility] Start: 11-02-2025 End: 11-02-2025 Patient encounter procedure 11/02/2025 11:00 AM EST [facility] [address] [place] [address] Bri Kraft MD [address] [place] [address] Discharge Disposition: [facility] Start: 10-24-2025 eGFR Diabetes eGFR Diabetes [facility] Start: 10-24-2025 Urine screening for protein eGFR Diabetes [facility] Start: 09-08-2025 Adult BMI Screening Adult BMI Screening [facility] Start: 09-08-2025 Tobacco Screening Tobacco Screening [facility] Start: 08-11-2025 Adult BMI Screening Adult BMI Screening [facility] Start: 07-14-2025 Adult BMI Screening Adult BMI Screening [facility] Start: 06-21-2025 End: 06-21-2025 ambulatory 06/21/2025 10:00 AM EDT Infusion Naheed [facility] [address] [place] [phone] Naheed Valentin [facility] - Medical Oncology Start: 06-16-2025 Adult BMI Screening Adult BMI Screening [facility] Start: 06-13-2025 Adult BMI Screening Adult BMI Screening [facility] Start: 06-13-2025 Tobacco Screening Tobacco Screening [facility] Start: 05-24-2025 End: 05-24-2025 ambulatory 05/24/2025 10:00 AM EDT Infusion Naheed Valentin [facility] [address] [place] [address] Naheed Valentin [facility] Start: 05-19-2025 Adult BMI Screening Adult BMI Screening [facility] Start: 05-19-2025 Tobacco Screening Tobacco Screening [facility] Start: 05-07-2025 COVID-19 Vaccine ( season) COVID-19 Vaccine () [facility] Start: 05-07-2025 Influenza vaccination [facility] Start: 04-26-2025 End: 04-26-2025 ambulatory 04/26/2025 10:00 AM EDT Infusion Naheed Valentin [facility] - [facility] Oncology [facility] [place] [phone] Naheed Valentin [facility]cology Start: 04-25-2025 End: 04-25-2025 Patient encounter procedure [facility] MRI Start: 04-23-2025 End: 10-24-2025 MR Brain WO contrast MR Brain Without Contrast Imaging Routine Multiple sclerosis (HCC) Expected: 04/23/2025 (Approximate), Expires: 10/24/2025 [facility] Comment on above: Expected: 04/23/2025 (Approximate), Expi res: 10/24/2025 Start: 03-29-2025 End: 03-29-2025 ambulatory 03/29/2025 10:00 AM EDT Infusion Naheed Valentin [facility]cology [address] [place] [address] Naheed Valentin [facility] Oncology Start: 03-23-2025 Adult BMI Screening Adult BMI Screening [facility] Start: 03-23-2025 Tobacco Screening Tobacco Screening [facility] Start: 03-01-2025 End: 03-01-2025 ambulatory 03/01/2025 10:00 AM EDT Infusion [facility] [address] [place] [address] Naheed Valentin [facility] Start: 02-01-2025 End: 02-01-2025 ambulatory 02/01/2025 1:00 PM EDT Infusion Naheed Valentin [facility]cology [address] [place] [address] Naheed Valentin [facility] Start: 01-26-2025 Adult BMI Screening Adult BMI Screening [facility] Start: 01-26-2025 Tobacco Screening Tobacco Screening [facility] Start: 01-04-2025 End: 01-04-2025 ambulatory 01/04/2025 11:00 AM EDT Infusion Naheed Valentin [facility]cology [address] [place] [address] Naheed Valentin [facility] Start: 12-27-2024 Adult BMI Screening Adult BMI Screening [facility] Start: 12-07-2024 End: 12-07-2024 ambulatory 12/07/2024 11:00 AM EDT Infusion Naheed Valentin [facility] Oncology [address] [place] [phone] Naheed Valentin [facility] Start: 11-24-2024 Adult BMI Screening Adult BMI Screening [facility] Start: 11-24-2024 Tobacco Screening Tobacco Screening [facility] Start: 11-09-2024 End: 11-09-2024 ambulatory 11/09/2024 11:00 AM EST Infusion Naheed Valentin [facility] [place] [address] Naheedjhony Valentin [facility] Start: 10-28-2024 Adult BMI Screening Adult BMI Screening [facility] Start: 10-28-2024 Tobacco Screening Tobacco Screening [facility] Start: 10-24-2024 End: 10-24-2024 Patient encounter procedure 10/24/2024 1:00 PM EST Office Visit [facility] [address] [place] [address] [address] [place] [address] Rajan Sutton MD [address] [facility], [address] [place] [address] Discharge Disposition: Home [facility] Start: 10-12-2024 Urine screening for protein eGFR Diabetes [facility] Start: 10-06-2024 End: 10-06-2024 ambulatory 10/06/2024 11:30 AM EST Infusion Naheed L Homero [facility]cology [address] [place] [phone] Naheed Valentin [facility] Start: 09-30-2024 Adult BMI Screening Adult BMI Screening [facility] Start: 09-30-2024 Tobacco Screening Tobacco Screening [facility] Start: 09-08-2024 End: 09-08-2024 ambulatory 09/08/2024 10:00 AM EST Infusion Naheed L Homero [facility] [address] [place] [phone] Naheed Valentin [facility] Start: 08-19-2024 Adult BMI Screening Adult BMI Screening [facility] Start: 08-11-2024 End: 08-11-2024 ambulatory 08/11/2024 11:30 AM EST Infusion Naheed L Homero [facility] [address] [place] [phone] Naheed Valentin [facility] Start: 06-24-2024 Tobacco Screening Tobacco Screening [facility] Start: 06-16-2024 End: 06-16-2024 ambulatory 06/16/2024 11:30 AM EDT Infusion Naheed Jaye Homero [facility] [address] [place] [phone] Naheed Valentin [facility] Start: 05-19-2024 End: 05-19-2024 ambulatory 05/19/2024 11:00 AM EDT Infusion Naheed Valentin [facility] [address] [place] [phone] Naheed Valentin [facility] Start: 05-07-2024 COVID-19 Vaccine ( season) COVID-19 Vaccine ( season) [facility] Start: 05-07-2024 COVID-19 Vaccine () COVID-19 Vaccine () [facility] Start: 05-07-2024 Influenza vaccination [facility] Start: 04-21-2024 End: 04-21-2024 ambulatory 04/21/2024 10:00 AM EDT Infusion Naheedjhony Valentin [facility] [place] [address] Naheed Valentin [facility] Start: 04-20-2024 End: 04-20-2024 Patient encounter procedure [facility] MRI Start: 04-11-2024 End: 04-11-2024 Patient encounter procedure 04/11/2024 11:30 AM EDT Office Visit [facility]science [address] [place] [address] Bri Kraft MD [address] [place] [address] [facility] Start: 04-11-2024 End: 04-11-2024 Patient encounter procedure [facility] Start: 03-23-2024 End: 03-23-2024 ambulatory 03/23/2024 10:00 AM EDT Infusion Naheed Valentin [facility] [address] [place] [address] Naheed Valentin [facility] Start: 02-24-2024 End: 02-24-2024 ambulatory 02/24/2024 10:00 AM EDT Infusion Naheedjhony Valentin [facility] Oncology [address] [place] [phone] Naheed Valentin [facility] Start: 01-27-2024 End: 01-27-2024 ambulatory 01/27/2024 11:00 AM EDT Infusion Naheed Valentin [facility]cology [address] [place] [phone] Naheed Valentin [facility]cology Start: 01-13-2024 End: 03-14-2025 Cardiac event recording Cardiac event monitor Cardiac Services Routine MS (multiple sclerosis) (HCC) Chronic fatigue Syncope, unspecified syncope type Expected: 01/13/2024, Expires: 03/14/2025 [facility] Comment on above: Expected: 01/13/2024, Expires: Start: 12-23-2023 End: 12-23-2023 ambulatory 12/23/2023 10:00 AM EDT Infusion Naheed Valentin [facility] Oncology [address] [place] [phone] Naheed Valentin [facility] Start: 11-25-2023 End: 11-25-2023 ambulatory 11/25/2023 10:00 AM EDT Infusion Naheed Valentin [facility] Oncology [address] [place] [phone] Naheed Valentin [facility] Start: 10-28-2023 End: 10-28-2023 ambulatory 10/28/2023 10:00 AM EST Infusion Naheed Valentin [facility] Oncology [address] [place] [phone] Naheed Valentin [facility] Start: 10-19-2023 Depression screening using PHQ-9 (Patient Health Questionnaire 9) score [facility] Start: 10-12-2023 End: 10-12-2023 Patient encounter procedure 10/12/2023 11:30 AM EST Office Visit [facility] [address] [place] [id number] Bri Kraft MD [address] [place] [id number] Discharge Disposition: Home [facility] Start: 08-18-2023 Depression Remission Assessment (PHQ9) Depression Remission Assessment (PHQ9) [facility] Start: 07-28-2023 End: 07-28-2023 Patient encounter procedure 07/28/2023 9:00 AM EST Office Visit [facility] Neuro[facility] [address] [place] [address] Anika Baker, RACQUEL [address] [place] [address] Discharge Disposition: Home [facility] Start: 05-07-2023 COVID-19 Vaccine ( season) COVID-19 Vaccine ( season) [facility] Start: 05-07-2023 Influenza vaccination Sequential Influenza Vaccine (#1) [facility] Start: 04-20-2023 End: 04-20-2023 Patient encounter procedure 04/20/2023 Office Visit Neurology Bri Kraft MD [address] [place] [address] [facility] Start: 04-20-2023 End: 04-20-2023 Patient encounter procedure 04/20/2023 Appointment Radiology Anika Baker, BOARD WRITER [address] [place] [address] [facility] Start: 10-19-2022 End: 10-19-2022 Patient encounter procedure [facility] Start: 2022 Screening for malignant neoplasm of breast Mammogram [facility] Start: 07-14-2022 Depression screening using PHQ-9 (Patient Health Questionnaire 9) score Depression Screening (PHQ-2/9) [facility] Start: 05-14-2022 Depression Remission Assessment (PHQ9) Depression Remission Assessment (PHQ9) [facility] Start: 05-07-2022 Influenza vaccination Sequential Influenza Vaccine (#1) [facility] Start: 05-04-2022 End: 05-04-2022 Patient encounter procedure [facility] Start: 10-28-2021 End: 10-28-2021 Patient encounter procedure 10/28/2021 Office Visit Neurology Bri Kraft MD [address] [place] [address] [facility] Start: 10-28-2021 End: 10-28-2021 Patient encounter procedure 10/28/2021 Appointment Radiology Bri Kraft MD [address] [place] [address] [facility] Start: 10-14-2021 End: 07-14-2022 MR Brain With And Without Contrast MR Brain With And Without Contrast Imaging Routine MS (multiple sclerosis) (HCC) Expected: 10/14/2021, Expires: 07/14/2022 [facility] Work Phone: Comment on above: Expected: 10/14/2021, Expires: 2 Start: 10-14-2021 End: 07-14-2022 MRI of cervical spine MR Cervical Spine With And Without Contrast Imaging Routine MS (multiple sclerosis) (HCC) Expected: 10/14/2021, Expires: 07/14/2022 [facility] Comment on above: Expected: 10/14/2021, Expires: 2 Start: 10-14-2021 End: 07-14-2022 MRI of thoracic spine MR Thoracic Spine With And Without Contrast Imaging Routine MS (multiple sclerosis) (HCC) Expected: 10/14/2021, Expires: 07/14/2022 [facility] Comment on above: Expected: 10/14/2021, Expires: 2 Start: 09-15-2021 End: 09-15-2021 ambulatory 09/15/2021 Infusion/Injection Infusion Therapy [facility] Start: 08-14-2021 End: 08-14-2021 ambulatory 08/14/2021 Infusion/Injection Infusion Therapy [facility] Start: 07-24-2021 COVID-19 Vaccine (3 - Booster for Pfizer series) COVID-19 Vaccine (3 - Booster for Pfizer series) [facility] Start: 07-16-2021 End: 07-16-2021 ambulatory [facility] Start: 07-14-2021 End: 07-14-2021 Patient encounter procedure [facility] Start: 06-18-2021 End: 06-18-2021 ambulatory 06/18/2021 Infusion/Injection Infusion Therapy [facility] Start: 05-07-2021 Influenza vaccination [facility] Start: 04-18-2021 COVID-19 Vaccine (3 - Booster for Pfizer series) COVID-19 Vaccine (3 - Booster for Pfizer series) [facility] Start: 04-18-2021 COVID-19 Vaccine (3 - Pfizer series) COVID-19 Vaccine (3 - Pfizer series) [facility] Start: 04-15-2021 End: 04-15-2021 Patient encounter procedure [facility] Start: 04-03-2021 End: 03-20-2022 MR Brain With And Without Contrast MR Brain With And Without Contrast Imaging Routine MS (multiple sclerosis) (HCC) Expected: 04/03/2021, Expires: 03/20/2022 [facility] Comment on above: Expected: 04/03/2021, Expires: Start: 03-20-2021 End: 03-20-2021 Patient encounter procedure 03/20/2021 Office Visit Neurology Bri Kraft MD [address] [facility] [address] [place] [address] [phone] [facility] Start: 06-27-2020 Annual Wellness Visit (AWV) Annual Wellness Visit (AWV) [place], [place] Start: 05-07-2020 Influenza vaccination [place] Start: 04-03-2020 A1C test (Diabetic or Prediabetic) A1C test (Diabetic or Prediabetic) [place] Start: 04-03-2020 HbA1c (Bld) [Mass fraction] A1C test (Diabetic or Prediabetic) [place] Start: 04-03-2020 Hemoglobin A1c measurement A1C test (Diabetic or Prediabetic) [facility] Work Phone: Start: 04-03-2020 Lipid panel Lipid screen [place], [place] Start: 04-03-2020 Lipid screen Lipid screen [place] Start: 10-04-2019 Hemoglobin A1c measurement A1C [facility] Start: 2012 Screening for malignant neoplasm of cervix [facility] Start: 2003 Cervical cancer screen Cervical cancer screen [place], [place] Start: 2003 Screening for malignant neoplasm of cervix [facility] Start: 2001 DTaP,Tdap and Td Vaccines (1 - Tdap) DTaP,Tdap and Td Vaccines (1 - Tdap) [facility] Start: 2001 DTaP/Tdap/Td vaccine (1 - Tdap) DTaP/Tdap/Td vaccine (1 - Tdap) [place] Start: 2000 Adult BMI Follow Up Plan Adult BMI Follow Up Plan [facility] Start: 2000 Hepatitis C screening Hepatitis C Screening [facility] Start: 1997 HIV screening HIV Screening [facility] Start: 1994 COVID-19 Vaccine (1) COVID-19 Vaccine (1) [facility] Start: 1994 Depression screening using PHQ-9 (Patient Health Questionnaire 9) score [facility] Start: 1992 Diabetic foot examination Diabetic Foot Exam [facility] Start: 1992 Glaucoma screening Diabetic Eye Exam [facility] Start: 1992 Urine screening for protein [facility] Start: 1988 Pneumococcal Vaccine: Ped or At-Risk (1 of 2 - PPSV23) Pneumococcal Vaccine: Ped or At-Risk (1 of 2 - PPSV23) [facility] Start: 1985 History and physical examination, annual for health maintenance Wellness Visit [facility] Start: 1985 Medicare Wellness Visit Medicare Wellness Visit [facility] Start: 1983 Varicella vaccine (1 of 2 - 2-dose childhood series) Varicella vaccine (1 of 2 - 2-dose childhood series) [place] Start: 1982 Hepatitis C screening Hepatitis C screen [place] Start: 1982 Screening for malignant neoplasm of cervix Pap Smear [facility] Start: 1982 Tetanus vaccination Tetanus: Every 10yrs [facility] End: 03-20-2022 RINA measurement RINA Lab Routine MS (multiple sclerosis) (HCC) 1 Occurrences starting 03/20/2021 until 03/20/2022 [facility] Comment on above: 1 Occurrences starting 03/20/2021 until 03/20/2022 RINA measurement RINA Lab Routine MS (multiple sclerosis) (HCC) 03/20/2021 1:34 PM EDT [facility] End: 05-04-2023 Complete blood count with white cell differential, manual CBC and Differential Lab Routine MS (multiple sclerosis) (HCC) Vitamin D deficiency 1 Occurrences starting 05/04/2022 until 05/04/2023 [facility] Comment on above: 1 Occurrences starting 05/04/2022 until 05/04/2023 Complete blood count with white cell differential, manual CBC and Differential Lab Routine MS (multiple sclerosis) (HCC) Vitamin D deficiency 05/04/2022 2:38 PM EDT [facility] End: 10-20-2023 Complete blood count with white cell differential, manual CBC and Differential Lab Routine Multiple sclerosis (HCC) Encounter for long-term (current) use of high-risk medication 1 Occurrences starting 10/19/2022 until 10/20/2023 [facility] Comment on above: 1 Occurrences starting 10/19/2022 until 10/20/2023 End: 10-24-2025 Complete blood count with white cell differential, manual CBC and Differential Lab Routine Multiple sclerosis (HCC) Therapeutic drug monitoring 1 Occurrences starting 10/24/2024 until 10/24/2025 [facility] Comment on above: 1 Occurrences starting 10/24/2024 until 10/24/2025 Electrophoresis Prot ein, Serum without Reflex to Immunofixation Electrophoresis Protein, Serum without Reflex to Immunofixation Lab Routine 04/14/2021 9:48 AM EDT [employer] Phone: End: 03-20-2022 Extractable nuclear antigen antibody screening test ANDREW Screen (SSA/B,SM,CAMPUS POLICE OFFICER,SCL70,JO1) Lab Routine MS (multiple sclerosis) (HCC) 1 Occurrences starting 03/20/2021 until 03/20/2022 [facility] Comment on above: 1 Occurrences starting 03/20/2021 until 03/20/2022 Extractable nuclear antigen antibody screening test ANDREW Screen (SSA/B,SM,CAMPUS POLICE OFFICER,SCL70,JO1) Lab Routine MS (multiple sclerosis) (HCC) 03/20/2021 1:34 PM EDT [facility] End: 03-20-2022 Fatty Acids Profile, Peroxisomal Fatty Acids Profile, Peroxisomal Lab Routine MS (multiple sclerosis) (HCC) 1 Occurrences starting 03/20/2021 until 03/20/2022 [facility] Comment on above: 1 Occurrences starting 03/20/2021 until 03/20/2022 Fatty Acids Profile, Peroxisomal Fatty Acids Profile, Peroxisomal Lab Routine MS (multiple sclerosis) (HCC) 03/20/2021 1:34 PM EDT [facility] End: 10-20-2023 Hepatic function 2000 panel - Serum or Plasma Hepatic Function Panel Lab Routine Multiple sclerosis (HCC) Encounter for long-term (current) use of high-risk medication 1 Occurrences starting 10/19/2022 until 10/20/2023 [facility] Comment on above: 1 Occurrences starting 10/19/2022 until 10/20/2023 End: 03-20-2022 Hepatitis B core antibody measurement Hepatitis B Core Antibody, Total Lab Routine MS (multiple sclerosis) (HCC) Encounter for screening for other viral diseases 1 Occurrences starting 03/20/2021 until 03/20/2022 [facility] Comment on above: 1 Occurrences starting 03/20/2021 until 03/20/2022 Hepatitis B core ant ibody measurement Hepatitis B Core Antibody, Total Lab Routine MS (multiple sclerosis) (HCC) Encounter for screening for other viral diseases 03/20/2021 1:34 PM EDT [facility] End: 03-20-2022 Hepatitis B e antigen test Hepatitis Be Antigen Lab Routine MS (multiple sclerosis) (HCC) 1 Occurrences starting 03/20/2021 until 03/20/2022 [facility] Comment on above: 1 Occurrences starting 03/20/2021 until 03/20/2022 Hepatitis B e antige n test Hepatitis Be Antigen Lab Routine MS (multiple sclerosis) (HCC) 03/20/2021 1:34 PM EDT [facility] End: 03-20-2022 Hepatitis B surface antibody measurement Hepatitis B Surface Antibody Lab Routine MS (multiple sclerosis) (HCC) Encounter for screening for other viral diseases 1 Occurrences starting 03/20/2021 until 03/20/2022 [facility] Comment on above: 1 Occurrences starting 03/20/2021 until 03/20/2022 Hepatitis B surface antibody measurement Hepatitis B Surface Antibody Lab Routine MS (multiple sclerosis) (HCC) Encounter for screening for other viral diseases 03/20/2021 1:34 PM EDT [facility] End: 03-20-2022 Hepatitis B surface antigen measurement Hepatitis B Surface Antigen Lab Routine MS (multiple sclerosis) (HCC) Encounter for screening for other viral diseases 1 Occurrences starting 03/20/2021 until 03/20/2022 [facility] Comment on above: 1 Occurrences starting 03/20/2021 until 03/20/2022 Hepatitis B surface antigen measurement Hepatitis B Surface Antigen Lab Routine MS (multiple sclerosis) (HCC) Encounter for screening for other viral diseases 03/20/2021 1:34 PM EDT [facility] End: 04-14-2021 Hepatitis B, Quantitative, Molecular Hepatitis B, Quantitative, Molecular Lab Routine Once for 1 Occurrences starting 04/14/2021 until 04/14/2021 [employer] Phone: Comment on above: Once for 1 Occurrences starting 04/14/20 21 until 04/14/2021 Hepatitis B, Quantitative, Molecular Hepatitis B, Quantitative, Molecular Lab Routine 04/14/2021 9:48 AM EDT [employer] Phone: End: 03-20-2022 Hepatitis Be antibody measurement Hepatitis Be Antibody Lab Routine MS (multiple sclerosis) (HCC) 1 Occurrences starting 03/20/2021 until 03/20/2022 [facility] Comment on above: 1 Occurrences starting 03/20/2021 until 03/20/2022 Hepatitis Be antibod y measurement Hepatitis Be Antibody Lab Routine MS (multiple sclerosis) (HCC) 03/20/2021 1:34 PM EDT [facility] End: 03-20-2022 HTLV-I/II Antibody Screen with Confirm HTLV-I/II Antibody Screen with Confirm Lab Routine MS (multiple sclerosis) (HCC) 1 Occurrences starting 03/20/2021 until 03/20/2022 [facility] Comment on above: 1 Occurrences starting 03/20/2021 until 03/20/2022 HTLV-I/II Antibody S creen with Confirm HTLV-I/II Antibody Screen with Confirm Lab Routine MS (multiple sclerosis) (HCC) 03/20/2021 1:34 PM EDT [facility] End: 03-20-2022 Human immunodeficiency virus antibody test HIV Antibody (HIV1/HIV2) Lab Routine MS (multiple sclerosis) (HCC) Mild cognitive impairment, so stated 1 Occurrences starting 03/20/2021 until 03/20/2022 [facility] Comment on above: 1 Occurrences starting 03/20/2021 until 03/20/2022 Human immunodeficien cy virus antibody test HIV Antibody (HIV1/HIV2) Lab Routine MS (multiple sclerosis) (HCC) Mild cognitive impairment, so stated 03/20/2021 1:34 PM EDT [facility] End: 04-14-2021 Immunofixation serum profile Immunofixation serum profile Lab Routine Once for 1 Occurrences starting 04/14/2021 until 04/14/2021 [employer] Phone: Comment on above: Once for 1 Occurrences starting 04/14/20 21 until 04/14/2021 Immunofixation serum profile Immunofixation serum profile Lab Routine 04/14/2021 9:48 AM EDT [employer] Phone: End: 04-15-2022 Immunoglobulin light chains.free panel - Serum Immunoglobulin Free Light Chains,Blood Lab Routine MS (multiple sclerosis) ([facility]) Abnormal SPEP 1 Occurrences starting 04/15/2021 until 04/15/2022 [facility] Comment on above: 1 Occurrences starting 04/15/2021 until 04/15/2022 End: 10-12-2024 MR Brain WO and W contrast IV MR Brain With And Without Contrast Imaging Routine MS (multiple sclerosis) ([facility]) 1 Occurrences starting 10/12/2023 until 10/12/2024 [facility] Comment on above: 1 Occurrences starting 10/12/2023 until 10/12/2024 End: 10-12-2024 MR Cervical spine WO contrast MR Cervical Spine Without Contrast Imaging Routine MS (multiple sclerosis) (HCC) 1 Occurrences starting 10/12/2023 until 10/12/2024 [facility] Comment on above: 1 Occurrences starting 10/12/2023 until 10/12/2024 End: 10-28-2022 MRI of brain and brain stem MR Brain Without Contrast Imaging Routine MS (multiple sclerosis) ([facility]) 1 Occurrences starting 10/28/2021 until 10/28/2022 [facility] Comment on above: 1 Occurrences starting 10/28/2021 until 10/28/2022 End: 10-19-2023 MRI of brain and brain stem MR Brain Without Contrast Imaging Routine Multiple sclerosis (HCC) 1 Occurrences starting 10/19/2022 until 10/19/2023 [facility] Work Phone: Comment on above: 1 Occurrences starting 10/19/2022 until 10/19/2023 End: 03-20-2022 Optical coherence tomography OCT, Optic Nerve - OU - Both Eyes Ophthalmology Routine MS (multiple sclerosis) ([facility]) Unspecified disorder of visual pathways 1 Occurrences starting 03/20/2021 until 03/20/2022 [facility] Comment on above: 1 Occurrences starting 03/20/2021 until 03/20/2022 End: 09-09-2024 Oxygen Therapy - Maintain SpO2: 90% or greater; *EMERGENCY SERVICES DISPATCHER Guidelines for O2: Yes; Document: [email or web address] [email or web address] uidelines/[email or web address] 2015.pdf Oxygen Therapy - Maintain SpO2: 90% or greater; *EMERGENCY SERVICES DISPATCHER Guidelines for O2: Yes; Document: [email or web address] [email or web address] [email or web address]/[email or web address]_Reference/Or ders/Respiratory%20Care% 20Guidelines/CPG%20Oxyge n%[email or web address].pdf Respiratory Care STAT Multiple sclerosis ([facility]) As Needed for 1 Occurrences starting 09/08/2024 until 09/09/2024 [employer] Work Phone: Comment on above: As Needed for 1 Occurrences starting 11/2024 until 09/09/2024 End: 03-20-2022 Serum immunofixation Immunofixation, Serum Lab Routine MS (multiple sclerosis) (HCC) 1 Occurrences starting 03/20/2021 until 03/20/2022 [facility] Comment on above: 1 Occurrences starting 03/20/2021 until 03/20/2022 Serum immunofixation Immunofixat ion, Serum Lab Routine MS (multiple sclerosis) (HCC) 03/20/2021 1:34 PM EDT [facility] End: 04-15-2022 Serum immunofixation Immunofixation, Serum Lab Routine MS (multiple sclerosis) ([facility]) Abnormal SPEP 1 Occurrences starting 04/15/2021 until 04/15/2022 [facility] Comment on above: 1 Occurrences starting 04/15/2021 until 04/15/2022 End: 03-20-2022 Serum protein electrophoresis Protein Electrophoresis, Blood Lab Routine MS (multiple sclerosis) ([facility]) 1 Occurrences starting 03/20/2021 until 03/20/2022 [facility] Comment on above: 1 Occurrences starting 03/20/2021 until 03/20/2022 Serum protein electrophoresis Protein Electrophoresis, Blood Lab Routine MS (multiple sclerosis) ([facility]) 03/20/2021 1:34 PM EDT [facility] Stratify JCV Antibod y with Index Stratify JCV Antibody with Index Lab Routine MS (multiple sclerosis) ([facility]) Ordered: 03/20/2021 [facility] Comment on above: Ordered: 03/20/2021 End: 10-28-2022 Stratify JCV Antibody with Index Stratify JCV Antibody with Index Lab Routine MS (multiple sclerosis) ([facility]) 1 Occurrences starting 10/28/2021 until 10/28/2022 [facility] Work Phone: Comment on above: 1 Occurrences starting 10/28/2021 until 10/28/2022 End: 05-04-2023 Stratify JCV Antibody with Index Stratify JCV Antibody with Index Lab Routine MS (multiple sclerosis) ([facility]) Vitamin D deficiency 1 Occurrences starting 05/04/2022 until 05/04/2023 [facility] Work Phone: Comment on above: 1 Occurrences starting 05/04/2022 until 05/04/2023 End: 10-19-2023 Stratify JCV Antibody with Index Stratify JCV Antibody with Index Lab Routine Multiple sclerosis ([facility]) Encounter for long-term (current) use of high-risk medication 1 Occurrences starting 10/19/2022 until 10/19/2023 [facility] Comment on above: 1 Occurrences starting 10/19/2022 until 10/19/2023 End: 04-20-2024 Stratify JCV Antibody with Index Stratify JCV Antibody with Index Lab Routine MS (multiple sclerosis) ([facility]) 1 Occurrences starting 04/20/2023 until 04/20/2024 [facility] Work Phone: Comment on above: 1 Occurrences starting 04/20/2023 until 04/20/2024 End: 10-12-2024 Stratify JCV Antibody with Index Stratify JCV Antibody with Index Lab Routine MS (multiple sclerosis) (HCC) 1 Occurrences starting 10/12/2023 until 10/12/2024 [facility] Work Phone: Comment on above: 1 Occurrences starting 10/12/2023 until 10/12/2024 End: 04-20-2025 Stratify JCV Antibody with Index Stratify JCV Antibody with Index Lab Routine Therapeutic drug monitoring Multiple sclerosis (HCC) 1 Occurrences starting 04/20/2024 until 04/20/2025 [facility] Work Phone: Comment on above: 1 Occurrences starting 04/20/2024 until 04/20/2025 End: 10-24-2025 Stratify JCV Antibody with Index Stratify JCV Antibody with Index Lab Routine Multiple sclerosis (HCC) Therapeutic drug monitoring 1 Occurrences starting 10/24/2024 until 10/24/2025 [facility] Work Phone: Comment on above: 1 Occurrences starting 10/24/2024 until 10/24/2025 End: 04-25-2026 Stratify JCV Antibody with Index Stratify JCV Antibody with Index Lab Routine MS (multiple sclerosis) (HCC) 1 Occurrences starting 04/25/2025 until 04/25/2026 [facility] Work Phone: Comment on above: 1 Occurrences starting 04/25/2025 until 04/25/2026 End: 03-14-2025 Tilt table [facility] Routine MS (multiple sclerosis) (HCC) Chronic fatigue Syncope, unspecified syncope type 1 Occurrences starting 01/13/2024 until 03/14/2025 [facility] Work Phone: Comment on above: 1 Occurrences starting 01/13/2024 until 03/14/2025 End: 03-20-2022 Tuberculosis screening M. Tuberculosis by QuantiFERON Lab Routine MS (multiple sclerosis) (HCC) 1 Occurrences starting 03/20/2021 until 03/20/2022 [facility] Comment on above: 1 Occurrences starting 03/20/2021 until 03/20/2022 Tuberculosis screening M. Tuberc ulosis by QuantiFERON Lab Routine MS (multiple sclerosis) ([facility]) 03/20/2021 1:34 PM EDT [facility] End: 05-04-2023 Vitamin D, 25-hydroxy measurement Vitamin D, Total, 25-OH Lab Routine MS (multiple sclerosis) ([facility]) Vitamin D deficiency 1 Occurrences starting 05/04/2022 until 05/04/2023 [facility] Comment on above: 1 Occurrences starting 05/04/2022 until 05/04/2023 Vitamin D, 25-hydrox y measurement Vitamin D, Total, 25-OH Lab Routine MS (multiple sclerosis) ([facility]) Vitamin D deficiency 05/04/2022 2:38 PM EDT [facility] End: 07-14-2022 XR Lumbar Spine 2-3 Views (Standard) XR Lumbar Spine 2-3 Views (Standard) Imaging Routine MS (multiple sclerosis) ([facility]) 1 Occurrences starting 07/14/2021 until 07/14/2022 [facility] Comment on above: 1 Occurrences starting 07/14/2021 until 07/14/2022 Immunizations Immunization Date Immunization Notes Care Provider [facility] 05-22-2024 influenza, high dose seasonal, preservative-free; Translations: [Fluzone High Dose Vaccine] Rex Hamm [facility] 05-22-2024 influenza virus vaccine, unspecified formulation Pfo 1 [facility] 06-18-2023 influenza, injectabl e, quadrivalent, preservative free Rex Hamm [facility] 06-18-2023 influenza virus vaccine, unspecified formulation Tala Caldera [facility] 07-05-2021 influenza virus vaccine, unspecified formulation Rex Hamm [facility] 02-21-2021 SARS-CoV-2 (COVID-19 ) mRNA BNT-162b2 vax Rex Hamm [facility] 01-31-2021 SARS-CoV-2 (COVID-19 ) mRNA BNT-162b2 vax Rex Hamm [facility] 06-05-2020 influenza virus vaccine, unspecified formulation Rex Hamm [facility] 05-30-2019 influenza virus vaccine, unspecified formulation Rex Hamm [facility] 04-27-2018 influenza virus vaccine, unspecified formulation Rex Hamm [facility] 05-25-2017 influenza virus vaccine, unspecified formulation Rex Hamm [facility] 06-05-2016 influenza virus vaccine, unspecified formulation Rex Hamm [facility] 06-10-2015 influenza virus vaccine, unspecified formulation Rex Hamm [facility] Payers Date Payer Category Payer Auto Insurance [employer] [id number] 2024 Unknown [id number] 2023 Medicare HMO [id number] 1.13.424.2.7.9 .[id number] 2023 Unknown [id number]. 1.13.385.2.7.3 .830851.315 2023 Unknown [id number] 2021 Medicaid [id number] 1.2.840.998975.1.13.385.2.7.3 .561333.315 2020 Medicare [id number] 1.2.840.573045.1.13.385.2.7.3 .564542.315 2020 Medicare [id number]. 1.13.385.2.7.3 .773979.315 2020 Medicaid [id number]. 1.13.385.2.7.3 .256803.315 2020 Medicare [id number] 1.2.840.631172.1.13.239.2.7.3 .662968.315 2016 Unknown [facility] xxxxxxxxxxxx 2016-Present [phone] [address] [place] [address] xxxxxxxxxxxx 1.2.840.224514.1.13.239.2.7.3 .140163.315 1982 Unknown [id number] 2.16.840.1.024404.3.579.2.175 1982 Unknown [id number] 2.16.840.1.642407.3.579.2.173 1982 Unknown [id number] 2.16.840.1.517186.3.579.2.173 1982 Unknown [id number] 2.16.840.1.753861.3.579.2.173 1982 Unknown [id number] 2.16.840.1.239503.3.579.2.173 1982 Unknown [id number] 2.16.840.1.261136.3.579.2.593 1982 Unknown [id number] 2.16.840.1.320060.3.579.2.593 1982 Unknown [id number] 2.16.840.1.191764.3.579.2.593 1982 Unknown [id number] 2.16.840.1.739219.3.579.2.902 1982 Unknown [id number] 2.16.840.1.748600.3.579.2.903 1982 Unknown [id number] 2.16.840.1.495681.3.579.2.727 1982 Unknown [id number] 2.16.840.1.614976.3.579.2.727 1982 Unknown [id number] 2.16.840.1.874031.3.579.2.727 1982 Unknown [id number] 2.16.840.1.269816.3.579.2.727 1982 Unknown [id number] 2.16.840.1.664160.3.579.2.727 1982 Unknown [id number] 2.16.840.1.905623.3.579.2.727 1982 Unknown [id number] 2.16.840.1.510369.3.579.2.727 1982 Unknown [id number] 2.16.840.1.392332.3.579.2.727 1982 Unknown [id number] 2.16.840.1.814921.3.579.2.727 1982 Unknown [id number] 2.16.840.1.828751.3.579.2.900 1982 Unknown [id number] 2.16.840.1.077686.3.579.2.900 1982 Unknown [id number] 2.16.840.1.382149.3.579.2.900 1982 Unknown [id number] 2.16.840.1.888555.3.579.2.900 1982 Unknown [id number] 2.16.840.1.190702.3.579.2.727 1982 Unknown [id number] 2.16.840.1.460667.3.579.2.727 1982 Unknown [id number] 2.16.840.1.912158.3.579.2.727 1982 Unknown [id number] 2.16.840.1.688612.3.579.2.727 1982 Unknown [id number] 2.16.840.1.281686.3.579.2.727 1982 Unknown [id number] 2.16.840.1.253552.3.579.2.727 1982 Unknown [id number] 2.16.840.1.794281.3.579.2.727 1982 Unknown [id number] 2.16.840.1.260115.3.579.2.727 1982 Unknown [id number] 2.16840.1.888210.3.579.2.128 6 1982 Unknown [id number] 2.16.840.1.169178.3.579.2.128 6 1982 Unknown [id number] 2.16.840.1.434447.3.579.2.128 6 1982 Unknown [id number] 2.16.840.1.462185.3.579.2.128 6 1982 Unknown [id number] 2.16.840.1.214884.3.579.2.128 6 1982 Unknown [id number] 2.16.840.1.974024.3.579.2.128 6 1982 Unknown [id number] 2.16.840.1.323652.3.579.2.128 6 1982 Unknown [id number] 2.16.840.1.906430.3.579.2.128 6 1982 Unknown [id number] 2.16.840.1.504755.3.579.2.128 6 1982 Unknown [id number] 2.16.840.1.348119.3.579.2.128 6 1982 Unknown [id number] 2.16.840.1.027237.3.579.2.128 6 1982 Unknown [id number] 2.16.840.1.604150.3.579.2.128 6 1982 Unknown [id number] 2.16.840.1.609376.3.579.2.128 6 1982 Unknown [id number] 2.16.840.1.431306.3.579.2.128 6 1982 Unknown [id number] 2.16.840.1.552948.3.579.2.128 6 1982 Unknown [id number] 2.16.840.1.788897.3.579.2.128 6 1982 Unknown [id number] 2.16.840.1.809905.3.579.2.128 6 1982 Unknown [id number] 2.16.840.1.561957.3.579.2.128 6 1982 Unknown [id number] 2.16.840.1.530036.3.579.2.128 6 1982 Unknown [id number] 2.16.840.1.667569.3.579.2.128 6 1982 Unknown [id number] 2.16.840.1.252262.3.579.2.128 6 1982 Unknown [id number] 2.16.840.1.415695.3.579.2.128 6 1982 Unknown [id number] 2.16.840.1.963472.3.579.2.128 6 1982 Unknown [id number] 2.16.840.1.789965.3.579.2.128 6 1982 Unknown [id number] 2.16.840.1.168109.3.579.2.128 6 1982 Unknown [id number] 2.16.840.1.112746.3.579.2.128 6 1982 Unknown [id number] 2.16.840.1.823250.3.579.2.128 6 1982 Unknown [id number] 2.16.840.1.355233.3.579.2.128 6 1982 Unknown [id number] 2.16.840.1.258688.3.579.2.128 6 1982 Unknown [id number] 2.16.840.1.645070.3.579.2.128 6 1982 Unknown [id number] 2.16.840.1.056870.3.579.2.128 6 1982 Unknown [id number] 2.16.840.1.379802.3.579.2.128 6 1982 Unknown [id number] 2.16.840.1.361104.3.579.2.128 6 1982 Unknown [id number] 2.16.840.1.760488.3.579.2.128 6 1959 Medicare [id number] 1.2.840.349074.1.13.239.2.7.3 .136949.315 1959 Unknown [id number] Social History Date Type Detail Facility Start: 04-01-2019 End: 09-11-2021 Tobacco smoking status NHIS Never smoker [place] Comment on above: denies use. Start: 04-01-2019 Alcohol intake Current non-dr canvas shrinker of alcohol (finding) [place] Start: 1980 Sex Assigned At Not on file [place] Exposure to SARS-CoV -2 (event) Unable to assess [place] Start: 04-01-2019 End: 09-11-2021 Tobacco use and exposure Never used [place] Start: 10-18-2021 End: 10-16-2022 Exposure to SARS-CoV-2 (event) Not sure [facility] [place] Start: 03-20-2021 End: 05-24-2025 Alcohol intake Current drinker of alcohol (finding) [facility] Start: 03-20-2021 Alcohol Comment alis, [facility] Start: 04-01-2019 End: 09-18-2020 Alcohol intake [facility] Work Phone: Start: 09-18-2020 End: 11-02-2022 Tobacco use panel [facility] Work Phone: Adult Depression Screening Assessment 16 [facility] Work Phone: Comment on above: denies use. Start: 04-15-2021 Gender identity Identifies as female gender (finding) [facility] Start: 04-15-2021 Sexual orientation Homosexual (findi ng) [facility] Tobacco smoking status [facility] How hard is it for y ou to pay for the very basics like food, housing, medical care, and heating Somewhat hard [facility] Start: 04-09-2015 Sex Female (finding) [facility] How hard is it for y ou to pay for the very basics like food, housing, medical care, and heating Not very hard [facility] Medical Equipment Procedure Code Equipment Code Equipment Origin al Text Equipment Identifier Dates Port 8fr Power I sp Attachable Single Lumen [place] - [id number] [facility] Start: 10-26-2022 Functional Status Date Assessment Result Facility 02-18-2024 Functional Status N/A [facility] Clinical Notes 03-19-2021 to 05-28-2025 Saira Pickett RN - 05/24/2025 10:00 AM EDTTelephone Encounter - Elayne Mariano LPN - 05/04/2025 1:19 PM EDTTelephone Encounter - Elayne Mariano LPN - 05/04/2025 1:19 PM EDTPatient Instructions Note Date & Type Note Facility 05-28-2025 Note Patient Education Caregiving Fall Prevention in the Home, Adult Falls can cause injuries and can happen to people of all ages. There are many things you can do to make your home safer and to help prevent falls. What actions can I take to prevent falls? General information ??? Use good lighting in all rooms. Make sure to: ? Replace any light bulbs that burn out. ? Turn on the lights in dark areas and use night-lights. ??? Keep items that you use often in [id number] places. Lower the shelves around your home if needed. ??? Move furniture so that there are clear paths around it. ??? Do not use throw rugs or other things on the floor that can make you trip. ??? If any of your floors are uneven, fix them. ??? Add color or contrast paint or tape to clearly sancho and help you see: ? Grab bars or handrails. ? First and last steps of staircases. ? Where the edge of each step is. ??? If you use a ladder or stepladder: ? Make sure that it is fully opened. Do not climb a closed ladder. ? Make sure the sides of the ladder are locked in place. ? Have someone hold the ladder while you use it. ??? Know where your pets are as you move through your home. What can I do in the bathroom? Keep the floor dry. Clean up any water on the floor right away. ??? Remove soap buildup in the bathtub or shower. Buildup makes bathtubs and showers slippery. ??? Use non-skid mats or decals on the floor of the bathtub or shower. ??? Attach bath mats securely with double-sided, non-slip rug tape. ??? If you need to sit down in the shower, use a non-slip stool. ??? Install grab bars by the toilet and in the bathtub and shower. Do not use towel bars as grab bars. What can I do in the bedroom? Make sure that you have a light by your bed that is easy to reach. ??? Do not use any sheets or blankets on your bed that hang to the floor. ??? Have a firm chair or bench with side arms that you can use for support when you get dressed. What can I do in the kitchen? Clean up any spills right away. ??? If you need to reach something above you, use a step stool with a grab bar. ??? Keep electrical cords out of the way. ??? Do not use floor maltese or wax that makes floors slippery. What can I do with my stairs? Do not leave anything on the stairs. ??? Make sure that you have a light switch at the top and the bottom of the stairs. ??? Make sure that there are handrails on both sides of the stairs. Fix handrails that are broken or loose. ??? Install non-slip stair treads on all your stairs if they do not have carpet. ??? Avoid having throw rugs at the top or bottom of the stairs. ??? Choose a carpet that does not hide the edge of the steps on the stairs. Make sure that the carpet is firmly attached to the stairs. Fix carpet that is loose or worn. What can I do on the outside of my home? Use bright outdoor lighting. ??? Fix the edges of walkways and driveways and fix any cracks. Clear paths of anything that can make you trip, such as tools or rocks. ??? Add color or contrast paint or tape to clearly sancho and help you see anything that might make you trip as you walk through a door, such as a raised step or threshold. ??? Trim any bushes or trees on paths to your home. ??? Check to see if handrails are loose or broken and that both sides of all steps have handrails. Install guardrails along the edges of any raised decks and porches. ??? Have leaves, snow, or ice cleared regularly. Use sand, salt, or ice melter on paths if you live where there is ice and snow during the winter. ??? Clean up any spills in your garage right away. This includes grease or oil spills. What other actions can I take? Review your medicines with your doctor. Some medicines can cause dizziness or changes in blood pressure, which increase your risk of falling. ??? Wear shoes that: ? Have a low heel. Do not wear high heels. ? Have rubber bottoms and are closed at the toe. ? Feel good on your feet and fit well. ??? Use tools that help you move around if needed. These include: ? Canes. ? Walkers. ? Scooters. ? Crutches. ??? Ask your doctor what else you can do to help prevent falls. This may include seeing a physical therapist to learn to do exercises to move better and get stronger. Where to find more information ??? Centers for Disease Control and Prevention, STEADI: cdc.gov ??? National [place] on Aging: abby.nih.gov ??? National [place] on Aging: abby.nih.gov Contact a doctor if: ??? You are afraid of falling at home. ??? You feel weak, drowsy, or dizzy at home. ??? You fall at home. Get help right away if you: ??? Lose consciousness or have trouble moving after a fall. ??? Have a fall that causes a head injury. These symptoms may be an emergency. Get help right away. Call 911. ??? Do not wait to see if the symptoms will go away. ??? Do (more content not included)... [facility] 05-24-2025 History of Present illness Narrative Pt here for Tysabri infusion Vitals are stable Pt denies any worsening symptoms Port accessed per policy and noted with brisk blood return Tysabri infused over an hour with a post infusion observation Pt tolerated well No adverse reactions IV discontinued Pt discharged in stable condition documented in this encounter [facility] 05-04-2025 Telephone encounter Note Information regarding your request Available without authorization. The member is able to fill the requested drug at the pharmacy. If coverage is still needed or requesting prior to the expiration of a current authorization, a request can be made by sending a fax or calling the number on the back of the member's ID card. CoverMyMeds (Le: [id number]) [facility] 05-04-2025 Miscellaneous Notes Information regarding your request Available without authorization. The member is able to fill the requested drug at the pharmacy. If coverage is still needed or requesting prior to the expiration of a current authorization, a request can be made by sending a fax or calling the number on the back of the member's ID card. CoverMyMeds (Le: [id number]) . documented in this encounter [facility] 05-04-2025 Telephone encounter Note . [facility] 04-26-2025 History of Present illness Narrative Pt here for tysabri as scheduled. Reports she feels well today with no new or worsening complaints. Tysabri pre transfusion checklist complete. Port accessed per protocol. Brisk blood return noted, flushes with ease. NS started at KVO. Tysabri infused over 1 hour. Pt stayed for only 30 minute observation. Pt tolerated well. Port flushed and de accessed per protocol. Band aide applied. Dc'd in stable ambulatory condition with treatment calendar. documented in this encounter [employer] 04-25-2025 History of Present illness Narrative Pt seen today in [facility] for therapy screen. Most recent therapy services: 3 years ago (PT/OT) ADLs/IADLs screen: Difficulty texting on small phone. Takes drivers test yearly. Uses self-care adaptations as needed. Upper Extremity Screen: Right dominant. Denies significant changes. Vision changes: Right eye with new difficulty focusing, seeing eye doctor tomorrow. Swallowing Questions: 1. Do you cough/choke and/or have persistent throat clearing with liquids/solids?: no 2. Do you ever have the sensation of food sticking in your throat?: no Cognitive Questions: Have you noticed a change in memory, attention (keeping your attention, completing 2 tasks at once, alternating your attention between task)? : yes Have you noticed a change in organization skills, ability to plan/sequence/follow through with a task?: yes Have you noticed a change and/or increase difficulty finding the rights words when communicating? : yes Device/Equipment: straight cane and tri-pod walker Falls in past 6 months: 6 in 3 months Mobility: Uses walker in home, cane in community. See PT notes. Right LE weakness, endorsing symptoms consistent with hip bursitis. Fatigue: Endorses general fatigue Current routine exercise program: Stretching, chair yoga Therapy needs identified: OP PT/OT, defers [employer] Desired location: External location requested For external services: Hard copy of therapy orders provided to patient today Education provided: Diagnosis specific education regarding role of therapy and Importance of attendance to therapy No charge for OT screen this date. Will continue to follow at [facility] clinic and assess for OT related needs. Pt seen today in [facility] clinic for therapy screen. Limitations in gross functional mobility: impaired balance, difficulty walking, decline in ADLs/IADLs, pain with functional mobility, impaired endurance, heat sensitivity Pt reports not significant change but just not getting better. States her leg just doesn't get stronger. Stroke in 2017 which showed some strength in the RLE. Multiple falls but she is able to recover from falls, has modified her home to make it safer. Does have some problems with typing/texting so uses larger ipad, drops things with her R hand, handwriting is poor. Noticing visual changes (see OT note). Does have some sensory changes, balance impairments, driving without difficulty. Reports her cognitive changes, noted below, do not bother her and she is not interested in ST at this time. Device/Equipment: straight cane and three wheeled rollator Falls in past 6 months: 6 falls in past 3 [address] leg giving way Fatigue: yes, physical deconditioning Heat: yes to heat sensivity Current routine exercise program/wellness: stretching and chair yoga Most recent therapy services: OP PT/OT about 3 years ago Functional Mobility Observation: Amb with SC and antalgic gait RLE with good speed and overall balance with head turns and pivots Swallowing Questions: Do you cough/choke and/or have persistent throat clearing with liquids/solids?: no Do you ever have the sensation of food sticking in your throat?: no Cognitive Questions: Have you noticed a change in memory, attention (keeping your attention, completing 2 tasks at once, alternating your attention between task)? : yes, leaves laundry in washer, leaves le in the door, loses phone Have you noticed a change in organization skills, ability to plan/sequence/follow through with a task?: yes, hard to prioritize tasks Have you noticed a change and/or increase difficulty finding the rights words when communicating? : she doesn't notice but some friends/family do notice some changes in word finding. Therapy needs identified: OP neuro PT/OT, defers ST Desired location: External location requested For external services: Orders need faxed to patients desired location Education provided: Diagnosis specific education regarding role of therapy, Importance of attendance to therapy, Role of exercise and exercise guidelines, Adaptive/Assistive equipment, and Fatigue vs deconditioning No charge for PT screen this date. Will continue to follow at [facility] clinic and assess for PT related needs. [facility] Department of Neurology Clinic Follow Up Note 04/25/2025 IMPRESSION: 1. Relapse remitting multiple sclerosis 2. Gait disorder 3. Seizure disorder 4. Chronic fatigue 5. Cognitive complaints 6. Headaches 7. Mood disorder 8. Vitamin D deficiency 9. Syncope Odessa Ireland is a 44 y.o. female with a past medical history of relapsing remitting multiple sclerosis who is presenting today as a follow-up. Multiple sclerosis In regards to the patient's diagnosis, the patient has active relapsing remitting multiple sclerosis. The patient seems to be tolerating Tysabri well. Consequently, we will plan to continue the patient on Tysabri as long as she does not develop a JCV index greater than 0.9, breakthrough disease, recurrent infections, opportunistic infections, or other troublesome side effects. We spent time reviewing the risks, side effects, and benefits of Tysabri. While on Tysabri, the patient needs to get a JCV index every 3 months. The patient should also get a CBC and LFT checked annually. The patient will be next due for an MRI of her brain and cervical spine without contrast in April 2026. If the patient ever broke through on Tysabri, then I would favor escalating her to ocrelizumab. However, it may be reasonable to consider escalation to [place] depending on how badly she broke through. If the patient became intolerant of Tysabri, then I will consider ozanimod, ocrelizumab, Mavenclad, or ofatumumab. Gait disorder In regards to the patient's gait disorder, it is difficult to tell how impaired her gait is due to functional overlays. I will make a referral to PT for this. The patient would not be a candidate for for Ampyra due to her history of seizures. Seizure disorder In regards the patient's seizure disorder, the patient is unable to find a local neurologist. Consequently, as long as the patient does not develop recurrent seizures, we will continue the patient on Keppra 1000 milligrams twice a day. If she broke through, then I would consider Vimpat. However, it may be more appropriate to consider referral to the epilepsy clinic. Chronic fatigue In regards to the patient's chronic fatigue, I feel that Provigil is a reasonable option in her. We will continue her on this as needed. I still fell that the patient would benefit from sleep medicine. I will defer making that referral to her PCP. Cognitive complaints In regards to the patient's cognitive complaints, I feel that they are more likely due to polypharmacy, multiple sclerosis, and her mood disorder. I think the patient could also benefit from speech therapy. Headaches In regards to her headaches, they seem to be under decent control with amitriptyline 150 mg by mouth at bedtime and Imitrex. \ Mood disorder In regards to the patient's mood disorder, I have concerns that several of the medication that she is on may be impacting her memory. I will defer this management to her psychiatrist. Vitamin D deficiency In regards to the patient's vitamin D deficiency, we will continue the patient on 2000 units of vitamin D3 once daily. We will check a vitamin D level today. We will make adjustments to her supplementation as needed. HIP PAIN In regards to the patient's hip pain, I feel this is most consistent with trochanteric bursitis, I advised her that she should follow this up with her PCP. Follow-up At the patient's next visit, which should be 6 months from today, we should monitor the patient for any evidence of disease activity. We should ensure that natalizumab is still a safe and effective treatment in her. We should ensure that she is getting the required lab work to safely infuse this drug. We should monitor her gait issues and ensure that she is following with therapy. I instructed the patient to call my office with any questions, concerns, issues or problems. I also counseled the patient if she is suffering a medical emergency to not call my office but either call 911 or go immediately to the emergency department. I recommend the following plan: PLAN: I recommend continuing neuro-immunologic DMT with Amber (natalizumab) I recommend checking the following labs/tests for her neurologic therapy Lab (for natalizumab): quarterly KATIE virus Ab, CBC, liver enzymes I recommend getting a MRI of the brain without contrast in April 2026 For symptom management, I recommend the following plan: - that we continue current symptomatic medications without change. We recommend a regular exercise program. We recommend that taking 2000 iu of rjjx-vvv-[id number] vitamin D3 daily. and We will check a viamin D level. Our goal level is between 50-100. . I recommend making the following referrals: Physical therapy for balance Smoking and second hand smoke lead to worsening of your health. If you are smoking, we recommend choosing a quit date. Once you have chosen a quit date, we will discuss medication and alternative therapies to help you quit. Furthermore, I recommend she contact 1800QUIT NOW for free assistance with smoking cessation counseling and nicotine replacement therapy if needed. No follow-ups on file. If new questions or concerns arise prior to your next visit, please call our office for urgent concerns (emergency room) or for new symptoms lasting > 24 hours or send a [employer] message for non-urgent concerns as you may need to be seen earlier. ADDITIONAL PATIENT INFORMATION I am treating/managing Odessa Ireland complex chronic/serious condition(s) of Multiple Sclerosis serving as the focal point for the patient's care for consistency and continuity over time Total Time Spent: On the date of this encounter, I spent a total of at least 40 minutes on the encounter, including pre-visit work, intra-visit work, post-visit work and associated documentation. Bri Kraft MD Voice recognition technology was used to aid in the documentation of this medical record. Some words may not be printed exactly as they were spoken. While efforts were made to carefully edit and correct any inaccuracies, some typographical errors may be present. The provider or the clinic can be contacted if corrections are needed. Review of Neuroimmunological Disease Primary Neurological Diagnosis: RRMS Date of Symptom Onset: 03/06/15 Year of diagnosis: 2014 Relapse History 2015 Optic neuritis Most Recent EDSS: Year of insidious progression: Time on DMT Month Year Month Year Multiple-Sclerosis -Disease-Modifying Therapies natalizumab dimethyl fumarate Start: 2020 Stop: 2020 Multiple-Sclerosis - Disease-Modifying Therapies natalizumab dimethyl fumarate Most Recent MRI Brain: 04/20/24 Most Recent MRI Cervical Spine: 04/20/24 Most Recent MRI Thoracic Spine: 10/28/21 MRI Changes 2021 2021 2021 2021 2020 2020 2019 2018 2018 brain brain cervical spine thoracic spine brain brain brain brain cervical spine Number of New lesions: 0 1 0 0 0 0 0 0 Most Recent OCT: CSF Studies: 2018 2014 OCB: unknown yes Other Testing: Ethnicity: Dominant Hand: Highest Level of education (in years): Chief Complaint: Neurology Follow Up Visit from 10/24/24 INTERIM HISTORY Life changes: No Medical history/non-neurologic medication changes: No Since last visit, she reports that she is having new pain. She reports that the pain starts in her right hip and goes down to her knee. It slowly spreads. It is a heat type sensation. She reports that it is burning heat. She reports that if she elevated her legs it will ago. She reports that it can also get soreness like a muscle cramps. It has happen 6 times since it started 2 weeks ago. She reports that it will last for 30 minutes. She ahs not had a fainting spells. She reports that she is not having falls. They happens 3-4 times per month. She feels that this is better than it used to be. She reports that her headaches are better. She has only had 3-4 migraines. They will ago away if she lays down in a dark place. She may have only taking imatrex. She is not getting the every day headaches. Energy levels are generally fair / acceptable. She reports that it is not doing to bad. She is only getting 5-6 hours of sleep at any time. Her sleep is limited by pain. She reports that her racing mind is not as bad. She reports that has not seen the sleep doctor. Mood is fair / acceptable. She reports that it has been rough lately. She has depression and anxiety. She is seeing psychiatric and psychology. She reports she is not having thoughts of harming herself. Cognition is fair / acceptable. She reports that she has noticed her memory is not as good. She reports that she can forget herself from catching something. She reports that she is leaving clothes in the laundry because she did not wash them. She can forget food in the oven. She can leave her keys in the door. Bladder is good. She is on [employer] disability She is involved in regular exercise / physical conditioning. She reports that she is doing chair yoga and a peddle thing. She is currently supplementing vitamin D3. She is not using tobacco. Symptom Inventory: Review of systems performed by the ENDBANDER/RN/medical intern, personally reviewed and viewable in the current patient encounter. [facility] ROS No documentation. 14 systems reviewed and negative except for as noted above. Past Medical History: Diagnosis Date Anxiety Cancer (HCC) 07/14/2003 Deep vein thrombosis (HCC) 2007 Diabetes (HCC) Fatty liver GERD (gastroesophageal reflux disease) Migraine Multiple sclerosis (HCC) Neuropathic pain Peripheral neuropathy Pseudoseizure PTSD (post-traumatic stress disorder) Stroke (HCC) 03/22 Syncope Past Surgical History: Procedure Laterality Date CARPAL TUNNEL RELEASE 2016 SECTION, LOW TRANSVERSE CHOLECYSTECTOMY CV IR INTERVENTIONAL RADIOLOGY N/A 10/26/2022 Procedure: IR PORT IMPLANT CHEST; Surgeon: Blanco Enrique CNP; [facility]; Service: Interventional Radiology HYSTERECTOMY OOPHORECTOMY TONSILLECTOMY TUBAL LIGATION Social History Tobacco Use Smoking status: Never Smokeless tobacco: Never Vaping Use Vaping status: Never Used Substance Use Topics Alcohol use: Yes Alcohol/week: 4.0 standard drinks of alcohol Types: 2 Glasses of wine, 2 Shots of liquor per week Comment: rarely, Drug use: Never Family History Problem Relation Age of Onset Ovarian cancer Mother Heart disease Mother Diabetes Mother Depression Mother Cancer Father Heart disease Father Hypertension Father Migraines Father Stroke Father Post-traumatic stress disorder Father Alcohol abuse Father Hypertension Brother Breast cancer Maternal Aunt Colon cancer Maternal Uncle Lupus Paternal Aunt Dementia Maternal Grandmother Memory loss Maternal Grandmother Dementia Paternal Grandmother Memory loss Paternal Grandmother Lung cancer Other Lupus Paternal Aunt Bone cancer Maternal Aunt Hypertension Maternal Aunt Seizures Neg Hx Multiple sclerosis Neg Hx Allergies Allergen Reactions Codeine Other (See Comments) Confusion, tried to jump out of a window GENERAL PHYSICAL EXAMINATION Vital Signs: not currently . General Appearance: in no apparent distress, well nourished, conversant, cooperative Eyes: Anicteric sclerae. Moist conjunctivae. No lid edema noted. HENT: Head atraumatic, normocephalic. Oropharynx clear. Moist mucous membranes. Neck/ Thyroid:trachea midline. Supple. No massess. No thyromegaly. CV: RRR, , no murmurs, rubs, clicks, or gallops, Palpable pulses throughout, and no lower extremity edema Lungs: Normal respiratory effort. No intercostal retractions. No dyspnea during conversation. Abdomen: soft, non-distended Extremities: no clubbing, cyanosis, pedal edema, ulcer nor wound noted. Skin: warm, dry, no rash, no ecchymoses, no petechiae noted Pysch: normal mood, behavior, speech, dress, and thought processes NEUROLOGIC EXAMINATION MENTAL STATUS: intact to casual conversation. Normal language function regarding fluency and comprehension. Normal mood and affect. CRANIAL NERVES: CN II: Visual tamayo full to confrontation CN III, IV, : Eyes are aligned in primary gaze. Extra ocular movements intact without nystagmus. Normal convergence. No GEOFF noted. No ptosis noted. CN V, VII: Sensation and strength are intact and symmetric. CN VIII: Hearing intact to finger rub bilaterally CN IX, X: Palate elevated symmetrically. No dysarthria noted. CN XI: Sternocleidomastoid and trapezius strength is full bilaterally. CN XII: The tongue protrudes in the midline. No fasciculation or atrophy appreciated. PYRAMIDAL: Pronator drift noted on the right , Satelliting not noted., poor effort Manual Muscle Testing: Right hip extension 1/5 when test but 5/5 when patient flexes left hip D B T WE FF IO HF KF KE DF PF Right 4 4+ 4+ 4+ 4+ 4+ 3 w/ patrick sign 3 4+ 3 3 Left 5 5 5 5 5 5 5 5 5 5 5 Modified Michael Score: B T Hip add KF KE DF PF Right 0 0 0 0 0 Left 0 0 0 0 0 SENSORY:light touch decreased in right side leg COORDINATION: Normal smooth eye pursuits, no saccadic intrusions noted. No truncal ataxia noted with sitting. Normal tkbsjl-bxct-cyierc, fine finger, and yevr-uh-uvhq movements without evidence of appendicular dysmetria nor ataxia. No tremors or abnormal movements noted. GAIT: Description: hesitant, functional, Stand from seated position: requires multiple attempts, Station: narrow based, Immediate Standing Balance: stable and requires support/device, Romberg Testing: stable with eyes open, but sways with eyes closed, Stride length:shuffling, Arm Swing: normal, Knee swing: normal , Heel Strike: normal, Turn: normal, Toe Walking: impaired bilaterally , Heel Walking: normal, Tanden Walking: not possible DIAGNOSTIC TESTING MRI Brain (I have independently reviewed the following images): Study Date: 04/25/25. Comparison Study Date: 04/20/24. Study Location:[facility], [place] protocol used: yes. Scanner Strength: 3T, Slice and Gap thickness: 1 mm voxel and NO gap, Image Quality: acceptable. Findings: T2 bright lesion burden of disease: moderate Periventricular T2 bright lesions: . yes Juxtacortical T2 bright lesions:yes CC T2 bright lesions: yes Infratentorial lesions: yes T1 black holes:yes T1 flynn enhancing lesions: no Visual assessment of atrophy: mild Findings vs. comparision study: New/Enlarged T2 bright lesions: no New T1 flynn+ lesions: no New T1 black holes: no Visual assessment of atrophy: unchanged MRI brain Impression: stable study Neuroradiologist Impression: pending LABS No visits with results within 6 Month(s) from this visit. Latest known visit with results is: Admission on 10/24/2024, Discharged on 10/24/2024 Component Date Value Ref Range Status Ventricular Rate 10/24/2024 112 BPM Final Atrial Rate 10/24/2024 112 BPM Final P-R Interval 10/24/2024 164 ms Final QRS Duration 10/24/2024 84 ms Final Q-T Interval 10/24/2024 316 ms Final QTC Calculation (Bezet) 10/24/2024 431 ms Final P [place] 10/24/2024 28 degrees Final R [place] 10/24/2024 2 degrees Final T [place] 10/24/2024 65 degrees Final Extra Tube 10/24/2024 Hold for add-ons. Final Extra Tube 10/24/2024 Hold for add-ons. Final Extra Tube 10/24/2024 Hold for add-ons. Final Extra Tube 10/24/2024 Hold for add-ons. Final Extra Tube 10/24/2024 Hold for add-ons. Final Sodium 10/24/2024 143 135 - 145 mmol/L Final Potassium 10/24/2024 4.3 3.5 - 5.1 mmol/L Final Chloride 10/24/2024 106 98 - 108 mmol/L Final Bicarbonate 10/24/2024 25 21 - 32 mmol/L Final Anion Gap 10/24/2024 16 10 - 20 mmol/L Final Glucose 10/24/2024 95 65 - 99 mg/dL Final BUN 10/24/2024 10 8 - 25 mg/dL Final Creatinine 10/24/2024 0.65 0.40 - 1.10 mg/dL Final eGFR 10/24/2024 113 >=60 mL/min/1.73 m2 Final BUN/Creatinine Ratio 10/24/2024 15.4 10.0 - 20.0 Final Levetiracetam 10/24/2024 95.0 (H) 6.0 - 46.0 mcg/mL Final WBC 10/24/2024 15.14 (H) 4.50 - 11.00 K/mcL Final RBC 10/24/2024 4.72 4.00 - 5.20 M/mcL Final Hemoglobin 10/24/2024 12.7 12.0 - 16.0 g/dL Final Hematocrit 10/24/2024 39.2 36.0 - 46.0 % Final MCV 10/24/2024 83.1 80.0 - 100.0 fL Final MCH 10/24/2024 26.9 26.0 - 34.0 pg Final MCHC 10/24/2024 32.4 31.0 - 37.0 g/dL Final Platelets 10/24/2024 260 150 - 400 K/mcL Final RDW - CV 10/24/2024 15.3 (H) 11.6 - 14.8 % Final MPV 10/24/2024 8.4 (L) 9.4 - 12.4 fL Final Nucleated RBC 10/24/2024 0.5 % Final Nucleated RBC Abs 10/24/2024 0.07 (H) 0.00 - 0.00 K/mcL Final pH, Venous 10/24/2024 7.50 (H) 7.32 - 7.42 Final pCO2, Mayur 10/24/2024 44.8 41.0 - 51.0 mm Hg Final pO2, Mayur 10/24/2024 64 (H) 25 - 40 mm Hg Final Base Excess, Mayur 10/24/2024 10.2 (H) -2.0 - 2.0 Final O2 Sat, Mayur 10/24/2024 93.5 (H) 40.0 - 70.0 % Final Hemoglobin, Calculated 10/24/2024 13.4 12.0 - 16.0 g/dL Final Hematocrit 10/24/2024 39 36 - 46 % Final Glucose 10/24/2024 99 65 - 99 mg/dL Final BUN 10/24/2024 10 8 - 25 mg/dL Final Creatinine 10/24/2024 0.58 0.40 - 1.10 mg/dL Final GFR 10/24/2024 116 >=60 mL/min/1.73 m2 Final Sodium 10/24/2024 144 135 - 145 mmol/L Final Potassium 10/24/2024 4.2 3.5 - 5.1 mmol/L Final Chloride 10/24/2024 109 (H) 98 - 108 mmol/L Final TCO2 10/24/2024 34 (H) 21 - 32 mmol/L Final Lactate 10/24/2024 1.7 0.6 - 2.0 mmol/L Final Ionized Calcium 10/24/2024 4.8 4.5 - 5.3 mg/dL Final Platelet Estimate 10/24/2024 Normal Normal Final RBC Morphology 10/24/2024 Normal Final Neutrophils 10/24/2024 26.0 % Final Lymphocytes 10/24/2024 60.0 % Final Monocytes 10/24/2024 10.0 % Final Eosinophils 10/24/2024 0.0 % Final Basophils 10/24/2024 0.0 % Final Band Neut 10/24/2024 3.0 % Final Lymph Atypical 10/24/2024 1.0 % Final Neutrophils Abs 10/24/2024 4.39 1.70 - 7.00 K/mcL Final Lymphocytes Abs 10/24/2024 9.24 (H) 0.90 - 4.00 K/mcL Final Monocytes Abs 10/24/2024 1.51 (H) 0.30 - 0.90 K/mcL Final Eosinophils Abs 10/24/2024 0.00 0.00 - 0.50 K/mcL Final Basophils Abs 10/24/2024 0.00 0.00 - 0.30 K/mcL Final ] documented in this encounter [facility] 04-25-2025 Instructions Aaliyah Posada, OTR/Jaye - 04/25/2025 1:09 PM EDT Images from the original note were not included. I recommend continuing neuro-immunologic DMT with Amber (natalizumab) I recommend checking the following labs/tests for her neurologic therapy Lab (for natalizumab): quarterly KATIE virus Ab, CBC, liver enzymes I recommend getting a MRI of the brain without contrast in April 2026 For symptom management, I recommend the following plan: - that we continue current symptomatic medications without change. We recommend a regular exercise program. We recommend that taking 2000 iu of zllm-kqw-nragfkl vitamin D3 daily. and We will check a viamin D level. Our goal level is between 50-100. . I recommend making the following referrals: Physical therapy for balance Smoking and second hand smoke lead to worsening of your health. If you are smoking, we recommend choosing a quit date. Once you have chosen a quit date, we will discuss medication and alternative therapies to help you quit. Furthermore, I recommend she contact 1800-QUIT NOW for free assistance with smoking cessation counseling and nicotine replacement therapy if needed. PLAN REGARDING MANAGMENT OF FUTURE MS RELAPSES We discussed the concept of an MS relapse and our center's approach to managing MS relapses today. We discussed the concept of a pseudo-MS relapse where MS patients will often experience a transient worsening of baseline neurological symptoms in the setting of fever, infection, and severe psycho-social stressors. We recommend that Odessa Ireland contact our office in the event of any new or worsening neurological symptoms lasting longer than two days. PLAN REGARDING DISEASE MODIFYING THERAPY We discussed the natural history of relapsing remitting multiple sclerosis and the realistic goals of disease modifying therapies (DMT) to decrease the frequency and severity of MS attacks and decrease neurological worsening. We shared our belief that consistent DMT use in relapsing forms of multiple sclerosis is one of the most important tools we use to improve outcomes. We stress the importance of DMT adherence and the need for constant open communication between the patient and care team. We briefly eviewed relevant mechanism of action, efficacy, safety and tolerability of several multiple sclerosis DMTs based on both clinical trial data and our MS centers experience. We also briefly discussed clinical trials for relapsing remitting multiple sclerosis at [facility]. For more information about our clinical trial opportunities please contact your MS provider. Odessa Ireland's neurological functioning and her response to DMT will assessed through several lines of evidence collected before each clinic visit. This includes her responses to MS symptoms specific questionnaires and her performance on MS specific clinical tests of vision, thinking, hand function and walking speed. Our center requires Odessa Ireland to always arrive at least 30 minutes before each clinic appointment to allow time for these tests. Response to disease modifying therapy will also be assessed through MRI scans of the brain and sometimes the spinal cord. This is needed to identify sub-clinical disease activity and her response to her disease modifying therapy. Optical Coherence Tomography (OCT), which measures the retinal nerve fiber layer (RNFL) of the eye, is another complementary way to measure MS disease activity. PLAN RELATED TO CLINIC FOLLOW UP 1. I will schedule a follow-up visit in No follow-ups on file. . 2. Please arrive 30 minutes before your appointment to allow time to complete paperwork and MS specific testing prior to seeing your MS specialist. If you arrive late you may not be able to be seen that day and may need to reschedule your visit. 3. Please sign up for the e-volo patient portal. Ricebook gives you controlled access to the same Epic medical records your [facility] MS care team use, via browser or mobile justin (for iOS and Android). Its allows you to review some of your testing results, and provides you with a communication link to your care providers. 4. Many of your test results can be reviewed online at any time through Ricebook. Your MS care team will review all results, but will only contact you if a finding requires urgent medical attention. Your MS Care team will always discuss your test results with you oqlj-qu-mdcp at your next clinic. PATIENT AND CAREGIVER EDUCATION 1. People with MS who smoke tend to have a faster progression of disease compared to those that do not. Also, people with clinically isolated syndrome who smoke are at risker to convert to MS compared to non-smokers. 2. We recommend that all MS patient participate in regular exercise, to the extent that they are able. Swimming, water aerobics and yoga are excellent considerations. 3. A healthy diet is beneficial in MS. We recommend the following: A. Calorie and content (simple carbohydrates, fats) control B. Share portions C. Eat SLOWER D. Salad dressing on the side E. Watch out of alcohol calories F. Drink a glass of water before each meal 4. Low levels of vitamin D have been associated with increased MS disease activity. Higher vitamin D levels have been associated with decreased MS disease activity. Our goal vitamin D level in our MS patients is generally between 50-100. 5. Multiple Sclerosis is an independent risk factor for accelerated bone loss (osteopenia/osteoperosis) and pathologic fractures. We recommend that all people with MS over age 50 have regular bone density testing with their PCP. 6. People with MS and their family must use caution when reading anything on the Internet about MS. Information on the Internet may be inaccurate or outdated, even if it looks real . We encourage you to discuss with us information you read on the internet, to help you clarify if it is accurate and if it applies to you specifically. Below are list of links to MS educational sources online: [facility] (www.Advanced [employer].rumr le word: multiple sclerosis) Multiple Sclerosis Association of [place] (www.mymsaa.org) Multiple Sclerosis Foundation (www.msfocus.org) Can do Multiple Sclerosis ( www.mscando.org ) National Multiple Sclerosis Society (www.nationalmssociety.org) [facility] (www.mscenter.[facility].[place]) Gather MS: linking people with MS to local community resources: https://www.[facility] ([facility])ms.com/ 7. For information on the [facility]'s clinical trial program please talk to your MS provider. 8.Support Groups: MS Groups take place at The [facility] Education and Resource Center at [facility]: [address] [place] [address]. Parking vouchers will be provided. All support and wellness opportunities will be offered free of charge at the [facility] Resource [facility] at [facility]. The [facility] is located in the Neuroscience Center [address] Pre-registration is required unless otherwise noted. Call [phone] or e-mail: [email or web address]. Call to confirm dates/times. [facility] 2020 MS Educational Series Presentations by Drs. Nguyen Lynn, Isael Randall, Bri Kraft, Shar Kraft and other MS team members. All presentations: Wednesday of the month October through June (May is Wednesday due to holiday) from 6-7 PM (immediately following the Life with MS support group meeting). Light refreshments will be served. Caregiver/General Manager Food Support Group: offers opportunities to connect with others, receive education and support, as well as learn about community resources. Meets of each month 2-3 pm or 6-7pm. Art Therapy: designed to provide a means to help you relax through creative activities, as well as express and explore your emotions and concerns. Led by a Registered Art Therapist. Meets Wednesday of each month: 11am-12:30p and Wednesday of each month: 6pm-7:30pm Music Therapy: a fun and useful tool to maximize neurological function and connect mind, body and spirit. Led by a Board Certified Neurologic Music Therapist. Meets and of each month: 1pm-2pm and Wednesday: 6:30-7:30pm Neuro Choir: Singing benefits your health, recovery and well-being. The choir is led by a Board Certified Neurologic Music Therapist. Meets : 2pm-3pm and Wednesday of each month: 6:30-7:30pm Neuro Yoga: learn and enhance your yoga skills. Opportunities include: caregiver class, 6 week intro series, chair yoga, and a class for experienced yoga practitioners. Call for schedule. Behavioral Health Support Group: For adult friends/family members of adults with mental illness. Receive support, share challenges, and learn about resources. Every Wednesday: 4:30pm-5:30pm. Registration not needed. For more information on the [facility] patient and family support groups and [facility] patient programs please call [phone] or email [email or web address] 10. We believe that consistent disease modifying therapy adherence is one of the most important tools to combat relapsing remitting multiple sclerosis We also believe in the need for constant open communication between the patient and care team about disease modifying therapy tolerance. 11. Education regarding disease modifying therapy discussed today: Education regarding NATALIZUMAB (Tysabri) Education regarding NATALIZUMAB (Tysabri), disease modifying therapy administered as an IV infusion once every 28 days or 42 days after 6 months. Mechanism of Action: Natalizumab is a monoclonal antibody against VLA4 that prevents immune cells from leaving the blood stream to enter into the brain (causing inflammatory damage in the setting of MS). Efficacy Data: Efficacy data is derived from the AFFIRM and SENTINEL trials, the mcc follow up studies, and our own clinical experience using natalizumab in our patients since 2003. Relapses: In the AFFIRM trial, natalizumab (ARR 0.22) decreased relapse rates by 68% compared to placebo (ARR 0.67). Disability: Compared to placebo, NTZ lowed risk of 3 month confirmed disability progression by 42% and reduced flynn+ enhancing lesions by 92%. ANTHONY: In post hoc analysis of the AFFIRM trial, ANTHONY (no evidence of disease activity: no attacks, no 3 month confirmed disability progression on EDSS, no new / enlarged T2 lesions and no new flynn+ enhancing lesions for 24 months) was achieved in 37% of natalizumab treated patients, compared to 7% of placebo patients. In aggressive patients (2+ attacks and 1+ flynn lesion in year prior to trial) 27% of natalizumab treated patients vs. 3% of placebo patients achieved ANTHONY. CDI: Confirmed disability improvements (CDI) was seen in 30% with NTZ vs 19% with placebo. TYSABRI ASSOCIATED PML RISK 1. Risks of Tysabri include a potentially fatal infection called progressive multifocal leukoencephalopathy (PML) that is caused by the re-activation of the KATIE virus. Roughly 20% of the cases were fatal. Many of the surviving patients suffered neurological deficits with only ~20% able to return to work after treatment. We can determine if you have been previously exposed to the JCV through the JCV antibody test. 2. Risk factors for tysabri related PML include JCV antibody positive status, prior immunosuppressive therapies, and number of months on tysabri. Understanding risk of tysabri related PML risk is calculated in the following manner: JCV ANTIBODY NEGATIVE patients have never been exposed to the JCV and carry a risk of PML is <0.09/999. The risk to convert from JCV antibody negative to JCV antibody positive is roughly ~5-7% each year. We monitor for seroconversion with JCV antibody testing every 3 months. JCV ANTIBODY POSITIVE and have had prior immunosuppressive therapy, are in a higher PML risk category. Risk of PML is as follows: Natalizumab Exposure (months) Risk per 1000 Risk as % 1-24 2 0.2 25-48 11 1.1 49-72 9 0.9 JCV antibody positive and HAVE NOT HAD prior immunosuppression, risk of PML is further refined depending on the Optic Density (OD). Considering Optic Density (OD), percentage risk of PML is as follows: Index <0.9 >0.9 <1.5 >1.5 1- 12mo 0.001 0.01 0.02 13-24mo 0.005 0.03 0.09 25-36mo 0.02 0.08 0.26 37-48mo 0.04 0.2 0.68 49-60mo 0.05 0.24 0.79 61-72mo 0.06 0.3 1.0 3. In JCV antibody positive patients, we often obtain more frequent MRI scans to screen for asymptomatic PML lesions. MRIs may occur twice to four times annually per clinician/patient preference. 4. If symptoms of PML or concerning MRI changes are found, we will stop natalizumab and obtain CSF (spinal fluid) for JCV PCR testing, and possibly obtain further MRI scans. If we are concerned for PML we will recommend inpatient hospital admission for 7 total plasma exchanges (done every other day) and high dose steroids to help stave off IRIS. Sincerely, Bri Kraft MD @DATE@ Today our therapy team recommended PT and OT to improve your function and quality of life. Occupational Therapy [facility] - We also discussed: -Communication with your primary therapist on further assessment of mobility and falls risk and adaptations including phone access Please reach out via Andera message, contacting the number provided in clinic or reaching out to your medical provider with any questions or concerns. documented in this encounter [facility] 04-25-2025 Note [facility] Neurology Clinic Follow Up Note 04/25/2025 IMPRESSION: 1. Relapse remitting multiple sclerosis 2. Gait disorder 3. Seizure disorder 4. Chronic fatigue 5. Cognitive complaints 6. Headaches 7. Mood disorder 8. Vitamin D deficiency 9. Syncope Odessa Ireland is a 44 y.o. female with a past medical history of relapsing remitting multiple sclerosis who is presenting today as a follow-up. Multiple sclerosis In regards to the patient's diagnosis, the patient has active relapsing remitting multiple sclerosis. The patient seems to be tolerating Tysabri well. Consequently, we will plan to continue the patient on Tysabri as long as she does not develop a JCV index greater than 0.9, breakthrough disease, recurrent infections, opportunistic infections, or other troublesome side effects. We spent time reviewing the risks, side effects, and benefits of Tysabri. While on Tysabri, the patient needs to get a JCV index every 3 months. The patient should also get a CBC and LFT checked annually. The patient will be next due for an MRI of her brain and cervical spine without contrast in April 2026. If the patient ever broke through on Tysabri, then I would favor escalating her to ocrelizumab. However, it may be reasonable to consider escalation to [place] depending on how badly she broke through. If the patient became intolerant of Tysabri, then I will consider ozanimod, ocrelizumab, Mavenclad, or ofatumumab. Gait disorder In regards to the patient's gait disorder, it is difficult to tell how impaired her gait is due to functional overlays. I will make a referral to PT for this. The patient would not be a candidate for for Ampyra due to her history of seizures. Seizure disorder In regards the patient's seizure disorder, the patient is unable to find a local neurologist. Consequently, as long as the patient does not develop recurrent seizures, we will continue the patient on Keppra 1000 milligrams twice a day. If she broke through, then I would consider Vimpat. However, it may be more appropriate to consider referral to the epilepsy clinic. Chronic fatigue In regards to the patient's chronic fatigue, I feel that Provigil is a reasonable option in her. We will continue her on this as needed. I still fell that the patient would benefit from sleep medicine. I will defer making that referral to her PCP. Cognitive complaints In regards to the patient's cognitive complaints, I feel that they are more likely due to polypharmacy, multiple sclerosis, and her mood disorder. I think the patient could also benefit from speech therapy. Headaches In regards to her headaches, they seem to be under decent control with amitriptyline 150 mg by mouth at bedtime and Imitrex. \ Mood disorder In regards to the patient's mood disorder, I have concerns that several of the medication that she is on may be impacting her memory. I will defer this management to her psychiatrist. Vitamin D deficiency In regards to the patient's vitamin D deficiency, we will continue the patient on 2000 units of vitamin D3 once daily. We will check a vitamin D level today. We will make adjustments to her supplementation as needed. HIP PAIN In regards to the patient's hip pain, I feel this is most consistent with trochanteric bursitis, I advised her that she should follow this up with her PCP. Follow-up At the patient's next visit, which should be 6 months from today, we should monitor the patient for any evidence of disease activity. We should ensure that natalizumab is still a safe and effective treatment in her. We should ensure that she is getting the required lab work to safely infuse this drug. We should monitor her gait issues and ensure that she is following with therapy. I instructed the patient to call my office with any questions, concerns, issues or problems. I also counseled the patient if she is suffering a medical emergency to not call my office but either call 911 or go immediately to the emergency department. I recommend the following plan: PLAN: I recommend continuing neuro-immunologic DMT with Tysabri (natalizumab) I recommend checking the following labs/tests for her neurologic therapy Lab (for natalizumab): quarterly KATIE virus Ab, CBC, liver enzymes I recommend getting a MRI of the brain without contrast in April 2026 For symptom management, I recommend the following plan: - that we continue current symptomatic medications without change. We recommend a regular exercise program. We recommend that taking 2000 iu of fhwp-zle-odkqjlp vitamin D3 daily. and We will check a viamin D level. Our goal level is between 50-100. . I recommend making the following referrals: Physical therapy for balance Smoking and second hand smoke lead to worsening of your health. If you are smoking, we recommend choosing a quit date. Once you have chosen a quit date, we will dis (more content not included)... [facility] 04-02-2025 Note Progress Note-Physic rajani Patient: ODESSA IRELAND Age: 44 years Sex: Female : 1980 Associated Diagnoses: None Author: Sharath Lopez Jr., DO Postoperative Information Postoperative disposition: Postoperative disposition: Home. Optimetrix number: Optimetrix number [id number]. Anesthetic utilized: General. Physical Examination Vital Signs 04/02/2025 10:00 EDT Heart Rate Monitored 88 bpm 04/02/2025 10:00 EDT Respiratory Rate Monitored 22 br/min 04/02/2025 10:00 EDT Systolic Blood Pressure 114 mmHg Diastolic Blood Pressure 66 mmHg SpO2 100 % 04/02/2025 9:55 EDT Systolic Blood Pressure 116 mmHg Diastolic Blood Pressure 87 mmHg 04/02/2025 9:55 EDT Temperature Temporal Artery 36.7 DegC Heart Rate Monitored 87 bpm Respiratory Rate Monitored 20 br/min SpO2 95 % Pain Assessment: Controlled. General: Awake, Alert, Appropriate. Respiratory: Adequate air exchange, Non-labored. Cardiovascular: Stable, Normal peripheral perfusion. Neurological: Neurologic exam at baseline. No changes.. Assessment Anesthetic outcome No anesthetic complications noted. No nausea/vomiting. Review / Management Condition: Stable. Plan Transfer/Discharge: Transfer/Discharge Discharge when meets criteria ( From PACU to Ambulatory Surgery Unit, and To home ). [facility] Comment on above: Result Comment: Elec tronically Signed By: Sharath Lopez Jr., DO\.br\Date and Time Signed: 04/02/25 10:24 EDT 04-02-2025 Note Patient Education - Text Colonoscopy Care After Surgery Please read the instructions outlined below and refer to this sheet in the next few weeks. These discharge instructions provide you with general information on caring for yourself after you leave the hospital. Your doctor may also give you specific instructions. While your treatment has been planned according to the most current medical practices available, unavoidable complications occasionally occur. If you have any problems or questions after discharge, please call your doctor. ACTIVITY You may resume your regular activity, but move at a slower pace for the next 24 hours. Take frequent rest periods for the next 24 hours. Walking will help get rid of the air and reduce the bloated feeling in your abdomen (belly). No driving for 24 hours (because of the anesthesia (medicine) used during the test). You may shower. Do not sign any important legal documents or operate any machinery for 24 hours (because of the anesthesia used during the test). NUTRITION Drink plenty of fluids. You may resume your normal diet as instructed by your doctor. Begin with a light meal and progress to your normal diet. Heavy or fried foods are harder to digest and may make you feel nauseated (sick to your stomach). Avoid alcoholic beverages for 24 hours or as instructed. MEDICATIONS You may resume your normal medications unless your doctor tells you otherwise. WHAT YOU CAN EXPECT TODAY Some feelings of bloating in the abdomen. Passage of more gas than usual. Spotting of blood in your stool or on the toilet paper. FOLLOW-UP Your doctor will discuss the results of your test with you. SEEK IMMEDIATE MEDICAL ATTENTION IF: There is more than a spotting of blood in your stool. There is abdominal distention (your abdomen is swollen). There is vomiting. You have a temperature over 101.5 F. There is abdominal pain or discomfort that is severe or gets worse throughout the day. Gastroenterology Upper Endoscopy, Adult, Care After After the procedure, it is common to have a sore throat. It is also common to have: ??? Mild stomach pain or discomfort. ??? Bloating. ??? Nausea. Follow these instructions at home: The instructions below may help you care for yourself at home. Your health care provider may give you more instructions. If you have questions, ask your health care provider. ??? If you were given a sedative during the procedure, it can affect you for several hours. Do not drive or operate machinery until your health care provider says that it is safe. ??? If you will be going home right after the procedure, plan to have a responsible adult: ? Take you home from the hospital or clinic. You will not be allowed to drive. ? Care for you for the time you are told. ??? Follow instructions from your health care provider about what you may eat and drink. ??? Return to your normal activities as told by your health care provider. Ask your health care provider what activities are safe for you. ??? Take [id number] and prescription medicines only as told by your health care provider. Contact a health care provider if you: ??? Have a sore throat that lasts longer than one day. ??? Have trouble swallowing. ??? Have a fever. Get help right away if you: ??? Vomit blood or your vomit looks like coffee grounds. ??? Have bloody, black, or tarry stools. ??? Have a very bad sore throat or you cannot swallow. ??? Have difficulty breathing or very bad pain in your chest or abdomen. These symptoms may be an emergency. Get help right away. Call 911. ??? Do not wait to see if the symptoms will go away. ??? Do not drive yourself to the hospital. Summary ??? After the procedure, it is common to have a sore throat, mild stomach discomfort, bloating, and nausea. ??? If you were given a sedative during the procedure, it can affect you for several hours. Do not drive until your health care provider says that it is safe. ??? Follow instructions from your health care provider about what you may eat and drink. ??? Return to your normal activities as told by your health care provider. This information is not intended to replace advice given to you by your health care provider. Make sure you discuss any questions you have with your health care provider. Document Revised: 12/02/2022 Document Reviewed: 12/02/2022 [employer] Patient Education ? 2023 [employer] Lopez's Esophagus Lopez's esophagus occurs when the tissue that lines the esophagus changes or becomes damaged. The esophagus is the tube that carries food from the throat to the stomach. With Lopez's esophagus, the cells that line the esophagus are replaced by cells that are similar to the lining of the intestines (intestinal metaplasia). Lopez's esophagus itself may not cause any symptoms. However, many people who have Lopez's esophagus also have (more content not included)... [facility] 04-02-2025 Note Progress Note-Tigre gerrad Patient: ODESSA IRELAND Age: 44 years Sex: Female : 1980 Associated Diagnoses: None Author: Sharath Lopez Jr., DO Preoperative Information Anesthesia history: Patient history: No prior anesthetic problems. Informed consent: Signed by patient. Re-evaluation prior to induction: Initial evaluation reviewed: No significant change. Review of Systems Respiratory: Negative except as documented in history of present illness. Cardiovascular: Negative except as documented in history of present illness. Health Status Allergies: Nonallergic Reactions (Selected) Mild Codeine- Hallucinations., Allergies (1) Active Severity Reaction codeine Mild Hallucinations Current medications: (Selected) Inpatient Medications Ordered Lactated Ringers IV Ivonne 1000 mL 1,000 mL: 1,000 mL, IV, 100 mL/hr, Routine, Start date 04/02/25 8:13:00 EDT, 10 hour(s), Total volume (mL): 1,000, 116 kg, 2.31, m2 Sodium Chloride 0.9% IV Ivnone 1000 mL 1,000 mL: 1,000 mL, IV, 20 mL/hr, Routine, Start date 04/02/25 6:36:00 EDT, 50 hour(s), Total volume (mL): 1,000, 116 kg, 2.31, m2 Prescriptions Prescribed Wegovy (1 mg dose) subcutaneous solution: See Instructions, INJECT 1 MG UNDER THE SKIN ONCE WEEKLY, # 6 mL, Refills(s) 0, Pharmacy: [facility] [id number], 165, cm, 01/16/25 9:50:00 EDT, Height/Length Dosing, 117.5, kg, 01/16/25 9:50:00 EDT, Weight Dosing amitriptyline 150 mg Tab: See Instructions, TAKE 1 TABLET BY MOUTH EVERY NIGHT AT BEDTIME, # 90 tab(s), Refills(s) 0, [id number], 165, cm, 02/21/25 9:06:00 EDT, Height/Length Dosing, 117.8, kg, 02/21/25 9:06:00 EDT, Weight Dosing atorvastatin 40 mg Tab: See Instructions, TAKE 1 TABLET BY MOUTH DAILY, # 90 tab(s), Refills(s) 1, Pharmacy: [facility] [id number], 165, cm, 10/17/24 10:07:00 EST, Height/Length Dosing, 116.3, kg, 10/17/24 10:07:00 EST, Weight Dosing ferrous sulfate 325 mg oral enteric coated tablet: 325 mg = 1 tab(s), Oral, Daily, # 90 tab(s), Refills(s) 3, Pharmacy: [facility] [id number], 165, cm, 03/14/25 14:59:00 EDT, Height/Length Dosing, 1,171, kg, 03/14/25 14:59:00 EDT, Weight Dosing metformin 500 mg Tab: See Instructions, take 1 tablet by mouth twice a day, # 180 tab(s), Refills(s) 1, Pharmacy: [facility] [id number], 165, cm, 10/17/24 10:07:00 EST, Height/Length Dosing, 116.3, kg, 10/17/24 10:07:00 EST, Weight Dosing omeprazole 20 mg Cap-DR: See Instructions, take 1 capsule by mouth once daily, # 90 cap(s), Refills(s) 1, Pharmacy: [facility] [id number], 165, cm, 10/17/24 10:07:00 EST, Height/Length Dosing, 116.3, kg, 10/17/24 10:07:00 EST, Weight Dosing Documented Medications Documented Ativan 0.5 mg Tab: 0.5 mg = 1 tab(s), Oral, Daily, PRN as needed for anxiety, Refills(s) 0 BACLOFEN 10 MG TABLET: BACLOFEN 10 MG TABLET, take 1 TO 2 tablet by mouth three times a day Colace: Refills(s) 0 Imitrex 50 mg Tab: See Instructions, Refills(s) 0 Non-Formulary Medication: Tysabri Infusion every 28 days Vitamin B12 2500 mcg sublingual tablet: Refills(s) 0 Vitamin D3 1000 intl units (25 mcg) Tab: 25 mcg = 1 tab(s), Oral, Daily, Refills(s) 0 aripiprazole 5 mg Tab: 5 mg = 1 tab(s), Oral, Daily, # 30 tab(s), Refills(s) 0 biotin 5000 mcg oral capsule: See Instructions, 2 caps every morning, Refills(s) 0 gabapentin 400 mg Cap: See Instructions, 2 cap(s) in the AM, 1 cap at noon, 2 caps in the PM, Refills(s) 0 levetiracetam 500 mg Tab: 1,000 mg = 2 tab(s), Oral, BID, # 120 tab(s), Refills(s) 0 modafinil 100 mg Tab: 100 mg = 1 tab(s), Oral, qAM, # 30 tab(s), Refills(s) 0 multivitamin: Refill(s) 0 sertraline 100 mg Tab: 150 mg = 1.5 tab(s), Refills(s) 0, Home Medications (20) Active amitriptyline 150 mg Tab See Instructions aripiprazole 5 mg Tab 5 mg = 1 tab(s), Oral, Daily Ativan 0.5 mg Tab 0.5 mg = 1 tab(s), PRN, Oral, Daily atorvastatin 40 mg Tab See Instructions BACLOFEN 10 MG TABLET biotin 5000 mcg oral capsule See Instructions Colace ferrous sulfate 325 mg oral enteric coated tablet 325 mg = 1 tab(s), Oral, Daily gabapentin 400 mg Cap See Instructions Imitrex 50 mg Tab See Instructions levetiracetam 500 mg Tab 1,000 mg = 2 tab(s), Oral, BID metformin 500 mg Tab See Instructions modafinil 100 mg Tab 100 mg = 1 tab(s), Oral, qAM multivitamin Non-Formulary Medication omeprazole 20 mg Cap-DR See Instructions sertraline 100 mg Tab 150 mg = 1.5 tab(s) Vitamin B12 2500 mcg sublingual tablet Vitamin D3 1000 intl units (25 mcg) Tab 25 mcg = 1 tab(s), Oral, Daily Wegovy (1 mg dose) subcutaneous solution See Instructions , Medications (2) Active Scheduled: (0) Continuous: (2) Lactated Ringers 1,000 mL 1,000 mL, IV, 100 mL/hr Sodium Chloride 0.9% 1,000 mL 1,000 mL, IV, 20 mL/hr PRN: (0) Problem list: All Problems Anxiety / SNOMED CT 05721694 / Confirmed BMI 40.0-44.9, adult / SNOMED CT 3385282109 / Confirmed Diastolic dysfunction / SNOMED CT 69 (more content not included)... [facility] Comment on above: Result Comment: Elec tronically Signed By: Sharath Lopez Jr., DO.kirill\Date and Time Signed: 04/02/25 08:14 EDT 03-29-2025 History of Present illness Narrative Patient here for Tysabri infusion. Patient denies any issues since last infusion. Pre-infusion checklist completed. Port accessed per policy and tolerated well. Tysabri administered without complications. Patient remains for 1 hour observation and denies complaints. Port flushed per protocol and needle d/c'd. Next appointment provided with understanding verbalized. Patient discharged to private vehicle in stable condition. documented in this encounter [facility] 03-27-2025 Telephone encounter Note Last visit 10/24/2024 Next visit 04/25/2025 [facility] 03-27-2025 Miscellaneous Notes Last visit 10/24/2024 Next visit 04/25/2025 documented in this encounter [facility] 03-14-2025 Note Oncology Progress No te Diagnoses Dietary iron deficiency (E61.1: Iron deficiency) Generalized multiple sclerosis (G35: Multiple sclerosis) Leukocytosis (D72.829: Elevated white blood cell count, unspecified) Oncological History/ROS/PE/Assessment and Plan This is a 44 year old females referred by Dr. Hamm for leukocytosis. She has a past medical history of MS, PTSD, Type 2 DM, obesity, CVA (2017), history of lyme disease, treated cervical cancer, and Raynaud's. She has a history of iron deficiencies anemia with her child but no other hemologic problems. MS on Tysabri. Her neurologist thought some of the CVA was to related a med exposure not any underlying vascular issues. She has 2 healthy children. Son had a brain MVM but otherwise. Parents have DM2, HTN, CAD, CVA. Mother had ovarian cancer. Father had liposarcoma. She also has multiple aunts members with breast cancer. On lab review, she has an elevated WBC going back into 2022. The highest is 13.4. No associated anemia or thrombocytopenia but MCV of 78.6. She has chronic fatigue, weakness, paresthesia, right sided weakness. Denies fevers, chills, adenopathy, no unintentional weight loss, no nausea, vomiting diarrhea. Overall, she feels like herself. 03/14/2025 She is still feeling well. Partner says she gets regular nosebleeds 3-4 times a month. They last 10-15 minutes. She does report sometimes seeing blood in her stool but only with certain foods. Blood is dripping into water. Sometimes sees really dark stools especially when she is constipated. She had a colonoscopy in [place] in 2017 but nothing since then. Hysterectomy in 2017. Physical Examination ECOG PS:1 General: Alert and oriented, no acute distress. Eye: Extraocular movements are intact, normal conjunctiva. HENT: Normocephalic, normal hearing. Neck: Supple, non-tender, no jugular venous distention. very minor adenopathy to left submental, otherwise no adenopathy Cardiovascular: Normal rate, regular rhythm, no murmur, no edema. Gastrointestinal: Soft, non-tender, non-distended, normal bowel sounds, no organomegaly. Respiratory: Clear to auscultation bilaterally, no wheezes, rhonchi or rales. Integumentary: Warm, dry, pink, no pallor, no rash. Psychiatric: Cooperative, appropriate mood & affect. chronic right sided weakness. Ambulates with cane. Assessment and Plan Leukocytosis March 2025- Leukocytosis of 13.3, secondary to underlying inflammation/autoimmune disease, negative flow Iron Deficiency Ferrous sulfate 325 every other day Refer to GI for EGD and colonoscopy Follow-up No qualifying data available Start ferrous sulfate 325 every other day Refer to Gi for EGD and colonoscopy for rectal bleeding and iron deficiency. 3 month and 6 month CBC, CMP, iron profile 6 months follow up with M[facility] COACH Medications amitriptyline 150 mg Tab, See Instructions aripiprazole 5 mg Tab, 5 mg= 1 tab(s), Oral, Daily Ativan 0.5 mg Tab, 0.5 mg= 1 tab(s), Oral, Daily, PRN atorvastatin 40 mg Tab, See Instructions, 1 refills BACLOFEN 10 MG TABLET biotin 5000 mcg oral capsule, See Instructions Colace gabapentin 400 mg Cap, See Instructions Imitrex 50 mg Tab, See Instructions levetiracetam 500 mg Tab, 1000 mg= 2 tab(s), Oral, BID metformin 500 mg Tab, See Instructions, 1 refills modafinil 100 mg Tab, 100 mg= 1 tab(s), Oral, qAM multivitamin Non-Formulary Medication omeprazole 20 mg Cap-DR, See Instructions, 1 refills sertraline 100 mg Tab, 150 mg= 1.5 tab(s) Vitamin B12 2500 mcg sublingual tablet Vitamin D3 1000 intl units (25 mcg) Tab, 25 mcg= 1 tab(s), Oral, Daily Wegovy (1 mg dose) subcutaneous solution, See Instructions Staging Information No information available Labs Common Labs Event Name Event Result Date/Time WBC 13.3 E9/L High 02/21/25 WBC 13.4 E9/L High 02/19/25 WBC 11.1 E9/L High 01/16/25 RBC 4.7 E12/L 02/21/25 RBC 5.1 E12/L 02/19/25 RBC 4.7 E12/L 01/16/25 HGB 12.4 gm/dL 02/21/25 HGB 13.1 gm/dL 02/19/25 HGB 12.8 gm/dL 01/16/25 Hct 37.7 % 02/21/25 Hct 40 % 02/19/25 Hct 37.4 % 01/16/25 MCV 80.3 fL 02/21/25 MCV 78.6 fL Low 02/19/25 MCV 79.5 fL Low 01/16/25 MCH 26.5 pg Low 02/21/25 MCH 25.8 pg Low 02/19/25 MCH 27.2 pg 01/16/25 MCHC 33 gm/dL 02/21/25 MCHC 32.8 gm/dL 02/19/25 MCHC 34.2 gm/dL 01/16/25 RDW 16 % High 02/21/25 RDW 16 % High 02/19/25 RDW 15.9 % High 01/16/25 Platelet 281 E9/L 02/21/25 Platelet 312 E9/L 02/19/25 Platelet 300 E9/L 01/16/25 MPV 6.3 fL Low 02/21/25 MPV 6.6 fL 02/19/25 MPV 6.6 fL 01/16/25 Segs Man 24 % Low 02/21/25 Segs Man 31 % Low 02/19/25 Segs Man 32 % Low 01/16/25 Lymph Man 48 % 02/21/25 Lymph Man 55 % High 02/19/25 Lymph Man 35 % 01/16/25 Monocyte Man 7 % 02/21/25 Monocyte Man 2 % Low 02/19/25 Monocyte Man 5 % 01/16/25 Eos Man 3 % 02/21/25 Eos Man 3 (more content not included)... [facility] Comment on above: Result Comment: Elec tronically Signed By: EVARISTO CLEMENT, ANTONETTE Guerin\.br\Date and Time Signed: 03/14/25 15:20 EDT 03-01-2025 History of Present illness Narrative Pt here for Tysabri infusion Vitals are stable Pt denies any worsening symptoms Port accessed per policy and noted with brisk blood return Tysabri infused over an hour with a post infusion observation Pt tolerated well No adverse reactions IV discontinued Pt discharged in stable condition documented in this encounter [facility] 02-21-2025 Note Oncology Progress No te Diagnoses Family history of breast cancer (Z80.3: Family history of malignant neoplasm of breast) Leukocytosis (leucocytosis) (D72.829: Elevated white blood cell count, unspecified) Ordered: ONC Office Visit 20 Min Nonsmoker (Z78.9: Other specified health status) Obesity, morbid, BMI 40.0-49.9 (E66.01: Morbid (severe) obesity due to excess calories) Oncological History/ROS/PE/Assessment and Plan HPI This is a 44 year old females referred by Dr. Hamm for leukocytosis. She has a past medical history of MS, PTSD, Type 2 DM, obesity, CVA (2017), history of lyme disease, treated cervical cancer, and Raynaud's. She has a history of iron deficiencies anemia with her child but no other hemologic problems. MS on Tysabri. Her neurologist thought some of the CVA was to related a med exposure not any underlying vascular issues. She has 2 healthy children. Son had a brain MVM but otherwise. Parents have DM2, HTN, CAD, CVA. Mother had ovarian cancer. Father had liposarcoma. She also has multiple aunts members with breast cancer. On lab review, she has an elevated WBC going back into 2022. The highest is 13.4. No associated anemia or thrombocytopenia but MCV of 78.6. She has chronic fatigue, weakness, paresthesia, right sided weakness. Denies fevers, chills, adenopathy, no unintentional weight loss, no nausea, vomiting diarrhea. Overall, she feels like herself. Physical Examination ECOG PS:1 General: Alert and oriented, no acute distress. Eye: Extraocular movements are intact, normal conjunctiva. HENT: Normocephalic, normal hearing. Neck: Supple, non-tender, no jugular venous distention. very minor adenopathy to left submental, otherwise no adenopathy Cardiovascular: Normal rate, regular rhythm, no murmur, no edema. Gastrointestinal: Soft, non-tender, non-distended, normal bowel sounds, no organomegaly. Respiratory: Clear to auscultation bilaterally, no wheezes, rhonchi or rales. Integumentary: Warm, dry, pink, no pallor, no rash. Psychiatric: Cooperative, appropriate mood & affect. chronic right sided weakness. Ambulates with cane. Assessment and Plan Leukocytosis Send flow to rule out CLL given prominent leukocytosis Check iron given history of iron deficiency anemia Also note presence of DM and underlying autoimmune diseases which can contribute to leukocytosis. Follow-up No qualifying data available Send flow, full iron profile 3 week follow up with Dr. Mcarthur. Medications amitriptyline 150 mg Tab, See Instructions aripiprazole 5 mg Tab, 5 mg= 1 tab(s), Oral, Daily Ativan 0.5 mg Tab, 0.5 mg= 1 tab(s), Oral, Daily, PRN atorvastatin 40 mg Tab, See Instructions, 1 refills BACLOFEN 10 MG TABLET biotin 5000 mcg oral capsule, See Instructions Colace gabapentin 400 mg Cap, See Instructions Imitrex 50 mg Tab, See Instructions levetiracetam 500 mg Tab, 1000 mg= 2 tab(s), Oral, BID metformin 500 mg Tab, See Instructions, 1 refills modafinil 100 mg Tab, 100 mg= 1 tab(s), Oral, qAM multivitamin Non-Formulary Medication omeprazole 20 mg Cap-DR, See Instructions, 1 refills sertraline 100 mg Tab, 150 mg= 1.5 tab(s) Vitamin B12 2500 mcg sublingual tablet Vitamin D3 1000 intl units (25 mcg) Tab, 25 mcg= 1 tab(s), Oral, Daily Wegovy (1 mg dose) subcutaneous solution, See Instructions Staging Information No information available Labs Common Labs Event Name Event Result Date/Time WBC 13.4 E9/L High 02/19/25 WBC 11.1 E9/L High 01/16/25 RBC 5.1 E12/L 02/19/25 RBC 4.7 E12/L 01/16/25 HGB 13.1 gm/dL 02/19/25 HGB 12.8 gm/dL 01/16/25 Hct 40 % 02/19/25 Hct 37.4 % 01/16/25 MCV 78.6 fL Low 02/19/25 MCV 79.5 fL Low 01/16/25 MCH 25.8 pg Low 02/19/25 MCH 27.2 pg 01/16/25 MCHC 32.8 gm/dL 02/19/25 MCHC 34.2 gm/dL 01/16/25 RDW 16 % High 02/19/25 RDW 15.9 % High 01/16/25 Platelet 312 E9/L 02/19/25 Platelet 300 E9/L 01/16/25 MPV 6.6 fL 02/19/25 MPV 6.6 fL 01/16/25 Segs Man 31 % Low 02/19/25 Segs Man 32 % Low 01/16/25 Lymph Man 55 % High 02/19/25 Lymph Man 35 % 01/16/25 Monocyte Man 2 % Low 02/19/25 Monocyte Man 5 % 01/16/25 Eos Man 3 % 02/19/25 Eos Man 6 % 01/16/25 Basophil Man 0 % 02/19/25 Basophil Man 0 % 01/16/25 React Lymph Man 9 % High 02/19/25 React Lymph Man 22 % High 01/16/25 NRBC Man 2 % High 02/19/25 NRBC Man 3 % High 01/16/25 Neutro Abs Man 4.2 E9/L 02/19/25 Neutro Abs Man 3.6 E9/L 01/16/25 Lymph Abs Man 8.6 E9/L High 02/19/25 Lymph Abs Man 6.3 E9/L High 01/16/25 Preble Abs Man 0.3 E9/L 02/19/25 Preble Abs Man 0.6 E9/L 01/16/25 Eos Abs Man 0.4 E9/L 02/19/25 Eos Abs Man 0.7 E9/L High 01/16/25 Basophil Abs Man 0 E9/L 02/19/25 Basophil Abs Man 0 E9/L 01/16/25 Path Review Path Review 01/16/25 Glucose Lvl 95 mg/dL 01/16/25 BUN 10 mg/dL 01/16/25 Creatinine 0.6 mg/dL more content not included)... [facility] 02-21-2025 Note Oncology Progress No te Chief Complaint New pt here for Leukocytosis, no specific questions or conenerns just wants to know what is going on. Oncological History/ROS/PE/Assessment and Plan 44-year-old female referred by Dr. Elvi Hamm for elevated white blood cell count. She has past medical history which includes elevated BMI, anxiety, diastolic dysfunction, stroke, depression, MS, chronic neuropathy, PTSD, Raynaud's disease, type 2 diabetes. Outpatient medications include amitriptyline, aripiprazole, Ativan, atorvastatin, baclofen, gabapentin, Imitrex, Keppra, metformin, modafinil, multivitamin, vitamin B12, vitamin D3, Wegovy. She also takes omeprazole. She is a non-smoker. She has recently been on her weight loss journey with Lisa. She is down over 20 pounds. We reviewed her labs which showed a white blood cell count of 13.4 with 31% neutrophils, 55% lymphocytes, 9% reactive lymphocytes. This gives us a total absolute lymphocyte count over 8000. Hemoglobin of 13.1 with an MCV of 78.6. Platelet count of 312,000. Recent iron studies show an iron of 64. Iron saturation and ferritin were not sent. Review of labs from June 2023 show similar white blood cell with lymphocyte distribution. Her vitamin B12 and folate were good.At initial consult in February 2025 we did not have any imaging in the system going back at least 6 years. Follow-up No qualifying data available Medications amitriptyline 150 mg Tab, See Instructions aripiprazole 5 mg Tab, 5 mg= 1 tab(s), Oral, Daily Ativan 0.5 mg Tab, 0.5 mg= 1 tab(s), Oral, Daily, PRN atorvastatin 40 mg Tab, See Instructions, 1 refills BACLOFEN 10 MG TABLET biotin 5000 mcg oral capsule, See Instructions Colace gabapentin 400 mg Cap, See Instructions Imitrex 50 mg Tab, See Instructions levetiracetam 500 mg Tab, 1000 mg= 2 tab(s), Oral, BID metformin 500 mg Tab, See Instructions, 1 refills modafinil 100 mg Tab, 100 mg= 1 tab(s), Oral, qAM multivitamin Non-Formulary Medication omeprazole 20 mg Cap-DR, See Instructions, 1 refills sertraline 100 mg Tab, 150 mg= 1.5 tab(s) Vitamin B12 2500 mcg sublingual tablet Vitamin D3 1000 intl units (25 mcg) Tab, 25 mcg= 1 tab(s), Oral, Daily Wegovy (1 mg dose) subcutaneous solution, See Instructions Vital Signs and Measurements Vital Signs and Measurements This Visit - Last 24 Hours T: 36.8 ???C (Oral) HR: 103 (Peripheral) RR: 18 BP: 118/82 SpO2: 97% HT: 165.0 cm HT: 165.0 cm WT: 117.8 kg (Dosing) WT: 117.8 kg BMI: 43.27 BSA: 2.32 Staging Information No information available Labs Common Labs Event Name Event Result Date/Time WBC 13.4 E9/L High 02/19/25 WBC 11.1 E9/L High 01/16/25 RBC 5.1 E12/L 02/19/25 RBC 4.7 E12/L 01/16/25 HGB 13.1 gm/dL 02/19/25 HGB 12.8 gm/dL 01/16/25 Hct 40 % 02/19/25 Hct 37.4 % 01/16/25 MCV 78.6 fL Low 02/19/25 MCV 79.5 fL Low 01/16/25 MCH 25.8 pg Low 02/19/25 MCH 27.2 pg 01/16/25 MCHC 32.8 gm/dL 02/19/25 MCHC 34.2 gm/dL 01/16/25 RDW 16 % High 02/19/25 RDW 15.9 % High 01/16/25 Platelet 312 E9/L 02/19/25 Platelet 300 E9/L 01/16/25 MPV 6.6 fL 02/19/25 MPV 6.6 fL 01/16/25 Segs Man 31 % Low 02/19/25 Segs Man 32 % Low 01/16/25 Lymph Man 55 % High 02/19/25 Lymph Man 35 % 01/16/25 Monocyte Man 2 % Low 02/19/25 Monocyte Man 5 % 01/16/25 Eos Man 3 % 02/19/25 Eos Man 6 % 01/16/25 Basophil Man 0 % 02/19/25 Basophil Man 0 % 01/16/25 React Lymph Man 9 % High 02/19/25 React Lymph Man 22 % High 01/16/25 NRBC Man 2 % High 02/19/25 NRBC Man 3 % High 01/16/25 Neutro Abs Man 4.2 E9/L 02/19/25 Neutro Abs Man 3.6 E9/L 01/16/25 Lymph Abs Man 8.6 E9/L High 02/19/25 Lymph Abs Man 6.3 E9/L High 01/16/25 Preble Abs Man 0.3 E9/L 02/19/25 Preble Abs Man 0.6 E9/L 01/16/25 Eos Abs Man 0.4 E9/L 02/19/25 Eos Abs Man 0.7 E9/L High 01/16/25 Basophil Abs Man 0 E9/L 02/19/25 Basophil Abs Man 0 E9/L 01/16/25 Path Review Path Review 01/16/25 Glucose Lvl 95 mg/dL 01/16/25 BUN 10 mg/dL 01/16/25 Creatinine 0.6 mg/dL 01/16/25 Potassium Lvl 4.1 mmol/L 01/16/25 Chloride 105 mmol/L 01/16/25 CO2 26 mmol/L 01/16/25 Calcium Lvl 9.2 mg/dL 01/16/25 Total Protein 7.2 gm/dL 01/16/25 Albumin Lvl 4.2 gm/dL 01/16/25 Bili Total 0.3 mg/dL 01/16/25 Iron 64 mcg/dL 02/19/25 Transferrin 282 mg/dL 02/19/25 Vitamin B12 Lvl 927 pg/mL 02/19/25 Folate Lvl >22.3 02/19/25 Hematologic Labs Event Name Event Result Date/Time Alk Phos 111 Int._Unit/L High 01/16/25 ALT 21 Int._Unit/L 01/16/25 AST 18 Int._Unit/L 01/16/25 Total Protein 7.2 gm/dL 01/16/25 Albumin Lvl 4.2 gm/dL 01/16/25 Globulin 3 gm/dL 01/16/25 A/G Ratio 1.4 01/16/25 Bili Total 0.3 mg/dL 01/16/25 [facility] 02-01-2025 History of Present illness Narrative Pt here for Tysabri infusion Vitals are stable Pt denies any worsening symptoms Port accessed per policy and noted with brisk blood return Lab draw completed Tysabri infused over an hour with a post infusion observation Pt tolerated well No adverse reactions IV discontinued Pt discharged in stable condition documented in this encounter [facility] 01-04-2025 History of Present illness Narrative Patient arrived ambulatory with steady gait. She completed the Tysabri screening and is okay for treatment today. Port accessed w/o difficulty. Medication hung to infuse over 1 hour. It infused w/o difficulty. Port flushed and deaccessed. Pt declined staying for the 1 hour observation. Patient given calendar, verbalized understanding of future appointments. documented in this encounter [facility] 12-07-2024 History of Present illness Narrative Patient is here for Tysabri infusion as scheduled. Completed the Tysabri questionnaire and patient denies any issues. Port accessed under sterile procedure with brisk blood return verified. Line flushes with ease. Tysabri scheduled to infuse over 1 hour without incident and patient tolerated well. Patient declined 1 hour observation and VS. Upon completion, port flushed via push/pause method, saline locked, site de-accessed and covered with band aid. Tolerated her infusion well. Treatment calendar reviewed. Patient discharged in stable condition to private vehicle. documented in this encounter [employer] 10-30-2024 Note The following messag e was sent to the patient via the Result Management function in [employer]. Please see the specific lab referenced to view my comment to the patient via [employer]: Ashtyn Saxena, I just received your JCV antibody level and it returned in the negative/normal range at 0.16. It is considered negative if it is less than 0.9. This is good news and tells us that it is safe to continue your Tysabri therapy! Sincerely, Rajan Sutton MD Neuroimmunology/Multiple Sclerosis Fellow [facility] Sclerosis [facility] I [address] [place] [address] [address] [place] [address] Clinic: AUTHENTICATED BY RAJAN SUTTON, ON 10/30/2024 08:04:37 [facility] 10-26-2024 Note The following messag e was sent to the patient via the Result Management function in [employer]. Please see the specific lab referenced to view my comment to the patient via [employer]: Ashtyn, Your labs (CBC, hepatic function panel) look stable. Your JCV is still pending. Your Vitamin D level is at goal; please continue your current supplement. Sincerely, Rajan Sutton MD Neuroimmunology/Multiple Sclerosis Fellow [facility] Sclerosis [facility] [address] [place] [address] [address] [place] [address] Clinic: AUTHENTICATED BY RAJAN SUTTON, ON 10/26/2024 11:31:49 [facility] 10-26-2024 History of Present illness Narrative The following message was sent to the patient via the Result Management function in [employer]. Please see the specific lab referenced to view my comment to the patient via [employer]: Hello, Your labs (CBC, hepatic function panel) look stable. Your JCV is still pending. Your Vitamin D level is at goal; please continue your current supplement. Sincerely, Rajan Sutton MD Neuroimmunology/Multiple Sclerosis Fellow [facility] Multiple S[facility] I [address] [place] [address] Clinic: Was notified by one of my nurses that the patient was seizing in the hallway. I went out and the patient was laying on her side being supported by our family welfare social work professor. The patient was having asynchronous rhythmic movements of her upper extremities and pelvic like thrusting movements. The patient's eyes were closed. She had a nonfixed gaze. Her eyes were responsive to light. She had been seizing for roughly 6 minutes. A rapid response call was made. She was taken over to the emergency department. In the emergency department, the patient continued to have abnormal movements. She had vital signs that were normal except for tachycardia. The patient was given 2 mg of Ativan and she began to come out of her episode. The patient was able to follow commands but was confused. Decision was made to load her with 2 g of Keppra and if she returns back to her baseline to discharge her on Keppra 150 mg twice daily and seizure precautions. We will check a Keppra level to determine where her level is at. Depending on the results of this, we may further down titrate her dose. Admittedly, I did feel that the patient's episode may have been nonepileptic. I spent in total 40 minutes with direct patient care for this episode and appointment Bri Kraft MD, A [facility] Staff Neurologist Neuroimmunology & Multiple Sclerosis [facility] Sclerosis [place] [address], [place], [place] Clinic 2:32 PM 10/24/24 Delivered pt's cane and backpack to the ED. Lenard with [employer] stated he would ensure it was safe and returned to pt. Images from the original note were not included. [facility] Clinic Follow Up Note 10/24/2024 Review of Neuroimmunological Disease Primary Neurological Diagnosis: RRMS Date of Symptom Onset: 03/06/15 Year of diagnosis: 2014 Relapse History 2015 Optic neuritis Most Recent EDSS: Year of insidious progression: Time on DMT Month Year Month Year Multiple-Sclerosis -Disease-Modifying Therapies natalizumab dimethyl fumarate Start: 2020 Stop: 2020 Multiple-Sclerosis - Disease-Modifying Therapies natalizumab dimethyl fumarate Most Recent MRI Brain: 04/20/24 Most Recent MRI Cervical Spine: 04/20/24 Most Recent MRI Thoracic Spine: 10/28/21 MRI Changes 2021 2021 2021 2021 2020 2020 2019 2018 2018 brain brain cervical spine thoracic spine brain brain brain brain cervical spine Number of New lesions: 0 1 0 0 0 0 0 0 Most Recent OCT: CSF Studies: 2018 2014 OCB: unknown yes Other Testing: Ethnicity: Dominant Hand: Highest Level of education (in years): CHIEF COMPLAINT Multiple Sclerosis follow up from 04/20/2024 CONTEMPORARY HISTORY Odessa Ireland reports no new neurological symptoms since her last clinic visit. Concerns today include DMT safety monitoring and bruising . She notes increased easy bruising and small noticeable veins in her feet with purplish discoloration. These have been present for a couple weeks. These were noticed by a nurse after she had a fall. Leg swelling 3-4 days per week which she notes her PCP is aware of; has been present for many years. DMT: She reports excellent tolerance and excellent adherence to her Tysabri (natalizumab) . She has a port and receives her infusions [facility]. She denies symptoms of recent illness/infection. She is due for DMT safety monitoring testing. She is up to date with surveillance MRI studies. MS Symptoms: Energy levels are generally stable / unchanged. Provigil helps. Mood is more depressed lately . Depression is managed by psychiatry. Seeing a counselor regularly. Amitriptyline was initially started for pain control but now being managed by psychiatry. Cognition is stable / unchanged. Bladder is good. Gait/Balance: She had a fall 09/21, 10/19. States her right leg gave out. She had her cane but it did not steady her. Gait is worsened by heat. Uses single point cane regularly and uses rollator for longer distances. She is not a candidate for Ampyra due to history of seizures. 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 Bowels: Docusate keeps her BM regular. She is involved in regular exercise / physical conditioning. She is currently supplementing with vitamin D. She is not sure the dose she takes. She is on disability. Seizure Keppra 1000 mg BID Last seizure 2017 ... Until today after her office visit when she had one in the [facility] and had to be transported to the ED Migraine Sumatriptan - took a dose in late September ROS AND OTHER HISTORY [facility]clerosis Center ROS - 10/24/24 1219 General Change in weight No Fever No Chills No Night Sweats No Cough No Shortness of Breath No Joint pain / swelling Yes Muscle pain / cramps Yes Chest pain No Palpitations No Nausea / Vomiting No Neurologic Double vision No Blurred / decreased vision No Difficulty swallowing No Difficulty with speech No Numbness / tingling Yes Painful skin sensations Yes Muscle weakness Yes Heat sensitivity Yes Motor fatigue No Incoordination/ poor balance Yes Difficulty walking No Recent Falls Yes L'hermitte No Difficulty with thinking and memory Yes Pathologic fatigue No Depression Yes Anxiety Yes Urinary urgency No Urinary frequency No Urinary retention / hesitancy No Recent Urinary Tract Infections No Bowel complaints No Sexual Dysfunction No Poor sleep Yes Headaches Yes Recent Seizures No 14 systems reviewed and negative except for as noted above. Past medical, surgical, social & family history reviewed in the electronic medical record. She has a past medical history of Anxiety, Cancer (HCC) (07/14/2003), Deep vein thrombosis (HCC) (2007), Diabetes (HCC), Fatty liver, GERD (gastroesophageal reflux disease), Migraine, Multiple sclerosis (HCC), Neuropathic pain, Peripheral neuropathy, Pseudoseizure, PTSD (post-traumatic stress disorder), Stroke (HCC) (03/22), and Syncope. She has a past surgical history that includes section, low transverse; Tubal ligation; Cholecystectomy; Hysterectomy; Oophorectomy; tonsillectomy; Interventional Radiology (N/A, 10/26/2022); and Carpal tunnel release (2015). She reports that she has never smoked. She has never used smokeless tobacco. She reports current alcohol use of about 4.0 standard drinks of alcohol per week. She reports that she does not use drugs. Her family history includes Alcohol abuse in her father; Bone cancer in her maternal aunt; Breast cancer in her maternal aunt; Cancer in her father; Colon cancer in her maternal uncle; Dementia in her maternal grandmother and paternal grandmother; Depression in her mother; Diabetes in her mother; Heart disease in her father and mother; Hypertension in her brother, father, and maternal aunt; Lung cancer in an other family member; Lupus in her paternal aunt and paternal aunt; Memory loss in her maternal grandmother and paternal grandmother; Migraines in her father; Ovarian cancer in her mother; Post-traumatic stress disorder in her father; Stroke in her father. Her Allergies Allergen Reactions Codeine Other (See Comments) Confusion, tried to jump out of a window She has a current medication list which includes the following prescription(s): amitriptyline, atorvastatin, baclofen, biotin, cholecalciferol (vitamin d3), docusate sodium, lactobacillus acidophilus, levetiracetam, lorazepam, metformin, modafinil, multivitamin, natalizumab, omeprazole, sertraline, sumatriptan, wegovy, and [START ON 11/14/2024] gabapentin. GENERAL PHYSICAL EXAMINATION Vital Signs: Blood pressure 118/80, pulse (!) 118, weight 116.7 kg (257 lb 4.8 oz), not currently . General Appearance: in no apparent distress, well nourished, conversant, cooperative Eyes: Anicteric sclerae. Moist conjunctivae. No lid edema noted. HENT: Head atraumatic, normocephalic. Oropharynx clear. Moist mucous membranes. Lungs: Normal respiratory effort. No intercostal retractions. No dyspnea during conversation. Extremities: no clubbing, cyanosis, pedal edema, ulcer nor wound noted. Skin: warm, dry, no rash, no ecchymoses, no petechiae noted Pysch: normal mood, behavior, speech, dress, and thought processes MULTIPLE SCLEROSIS PERFORMANCE TEST CLINICAL TESTING VALUE Binocular Visual acuity (Hi: range 13-60, median 59) (Lo: range 0-55, median 32) Low Contrast: High Contrast: Symbol Digit Modality Test (range 4-86, Median 46) Total Number Correct: 52 Nine Hole Peg Test (range 13.4-8.3; median 26.5) Left Hand Avg (seconds): 29.86 Right Hand Avg (seconds): 30.22 Dominant Hand: right Timed 25 Foot Walk (range 0.1-52.47; Median without aid 7.1) Average Trial Time (seconds): 15.88 AFO Choice: none Walking Aid Choice: cane Neurological Testing VALUE Visual acuity (2.5% low contrast) OD: 20/120 w/contacts OS: 20/100 w/contacts 90 second Symbol Digit Modality Test Nine Hole Peg Test Right 1st: Right 2nd: Left 1st: Left 2nd: Timed 25 Foot Walk Trial 1: Trial 2: VMT Raw Score: 60 NEUROLOGICAL EXAMINATION MENTAL STATUS: 52 intact to casual conversation. Normal language function regarding fluency and comprehension. Normal mood and affect. CRANIAL NERVES: CN II: Visual tamayo full to confrontation. CN III, IV, : Eyes are aligned in primary gaze. Extra ocular movements intact without nystagmus. Normal convergence. No GEOFF noted. No ptosis noted. CN V, VII: Strength is intact and symmetric. Sensation is notable for hyperesthesia on the right. CN VIII: Hearing intact to finger rub bilaterally CN IX, X: Palate elevated symmetrically. No dysarthria noted. CN XI: Sternocleidomastoid and trapezius strength is full bilaterally. CN XII: The tongue protrudes in the midline. No fasciculation or atrophy appreciated. PYRAMIDAL: Nine Hole Peg Test: Dominant Hand: right Left Hand Avg time (seconds): 29.86 Right Hand Avg time (seconds): 30.22 Manual Muscle Testing: Strength Right Left Deltoids 4 5 Biceps 4 5 Triceps 4 5 Wrist Extensors 4 5 Finger Flexors 4 5 Intrinsic Hand Muscles (IO) 4 4 Hip Flexors 4 4 Knee Extensors 3 3 Knee Flexors 4 4 Dorsiflexion 3 3 Plantarflexion 4 4 Normal muscle tone and bulk throughout. Deep Tendon Reflexes: Bicep Tricep BR Patellar Ankle Right 1 1 1 1 1 Left 1 1 1 1 1 SENSORY: decreased LT RUE and RLE COORDINATION: Intact [id number] and [id number]-[id number] tests. GAIT: Timed 25 foot walk (seconds): 15.88 Cautious with cane hesitant narrow based PARACLINICAL DATA (I have personally reviewed the information below) IMPRESSION Odessa Ireland is a 44 y.o. female with relapsing multiple sclerosis on disease modifying therapy with Tysabri (natalizumab) (s/p 43 infusions, last JCV Ab negative 04/2024) who presents for follow up evaluation. She remains neurologically stable based on clinical history, neurological examination from an MS standpoint. She does note some easy bruising in her extremities today so will check blood counts in addition to routine safety monitoring for DMT. PLAN Disease Modifying Therapy: - We recommend Odessa Ireland remain on disease modifying therapy with Tysabri (natalizumab) - Plan for safety labs: CBC with differential , LFTs, every 6 months while on therapy , JCV ordered quarterly but difficulty receiving this from outside infusion center. Last checked 04/2024 per record and patient report. Will assess JCV Ab today in addition to CBC diff and LFTs. - More information on your disease modifying therapy can be found below - Please notify us of any plans for future 2. Disease monitoring - Next due for MRI brain 04/2025 ordered today - Patient was asked to call our clinic for any new neurologic symptoms concerning for relapse or to send me a [employer] message with any non-urgent questions/concerns. We reviewed the difference between an inflammatory relapse and a pseudo-relapse secondary to physical exertion, heat, illness, emotional stress. 3. Symptomatic management and health maintenance - Vitamin D level last checked one year ago, recheck today - Fatigue: Continue modafanil (Provigil) - Gait: Continue home exercises from PT and fall precautions, encouraged use of ambulatory aid at all times, ideally bilateral assistance with walker - Spasticity: Continue baclofen - Bladder: None - Neuropathic Pain: Continue gabapentin 800/400/800 PLAN RELATED TO CLINIC FOLLOW UP 1. I will schedule a follow-up visit in [address] Rangel Kraft with same-day MRI brain. 2. Please arrive 30 minutes before your appointment to allow time to complete paperwork and MS specific testing prior to seeing your MS specialist. If you arrive late you will be asked to reschedule your visit. 3. Please sign up for the e-[employer]o patient portal. [employer] provides assess to your medical record and test results, allows you to communicate with your care providers, and allows you to complete patient questionnaires prior to each clinic visit. 4. When your testing is completed, your MS care team will review all results and contact you if a finding requires follow up before your next visit. Otherwisee, we will discuss your test results [id number] at your next clinic visit. Many of your testing results, however, can be reviewed online through [employer]. PATIENT AND CAREGIVER EDUCATION 1. People with MS who smoke tend to get worse faster compared to those that do not. Also, people with clinically isolated syndrome who smoke convert to MS faster than those who do not. 2. We recommend that all people with MS exercise regularly, to the extent that they are able. Swimming, water aerobics and yoga are excellent considerations. 3. We recommend caution when reading about MS on the Internet, as information may be inaccurate or outdated, even if it looks real . If you have questions about things you read, we recommend you discuss them with your care provider. Below are list of links to MS educational sources online: [facility] (www.[facility].rumr/MS) Multiple Sclerosis Association of [place] (www.mymsaa.org) Multiple Sclerosis Foundation (www.msfocus.org) Can do Multiple Sclerosis ( www.mscando.org ) National Multiple Sclerosis Society (www.nationalmssociety.org) Gather MS: linking people with MS to local community resources: https://www.gatherms.com/ 4. For information on the [facility]'s clinical trial program please talk to your MS specialist. 5. All support and wellness opportunities will be offered free of charge at the [facility] at [facility]. The [facility] is located in the [address] Pre-registration is required unless otherwise noted. Call [phone] or e-mail: [email or web address] Call to confirm dates/times. 6. We believe that consistent use of your disease modifying therapy is one the most important tool to prevent MS relapses and future disability. Please communicate with us about your barriers to using your medication consistently. These may include convenience of use, cost, access to the medication and side effects. 7. Low levels of vitamin D have been associated with increased MS disease activity. Our goal vitamin D level in our MS patients is generally between 50-100 and you may require a supplement to reach these levels. 8. A healthy diet is beneficial in MS and obesity has been associated with increased risk of MS and disability associated with MS. We recommend a heart healthy diet: - A variety of fruits and vegetables - Whole grains - Healthy sources of protein (mostly plant based or lean, unprocessed meats) - Limit processed foods, added sugars and extra salt - Limited or no alcohol intake 9. Multiple Sclerosis is an independent risk factor for accelerated bone loss (osteopenia/osteoperosis) and pathologic fractures. We recommend that all people with MS over age 50 have regular bone density testing with their PCP. 10. Education regarding disease modifying therapy discussed today: NATALIZUMAB (Tysabri), disease modifying therapy administered as an IV infusion once every 28 days. After 6 infusions, some patients may be able to extend their infusions to every 42 days. Mechanism of Action: Natalizumab is a monoclonal antibody against VLA4 that prevents immune cells from leaving the blood stream to enter into the brain (causing inflammatory damage in the setting of MS). Efficacy Data: Efficacy data is derived from the AFFIRM and SENTINEL trials, the mcc follow up studies, and our own clinical experience using natalizumab in our patients since 2003. Relapses: In the AFFIRM trial, natalizumab (ARR 0.22) decreased relapse rates by 68% compared to placebo (ARR 0.67). Disability: Compared to placebo, NTZ lowed risk of 3 month confirmed disability progression by 42% and reduced flynn+ enhancing lesions by 92%. ANTHONY: In post hoc analysis of the AFFIRM trial, ANTHONY (no evidence of disease activity: no attacks, no 3 month confirmed disability progression on EDSS, no new / enlarged T2 lesions and no new flynn+ enhancing lesions for 24 months) was achieved in 37% of natalizumab treated patients, compared to 7% of placebo patients. In aggressive patients (2+ attacks and 1+ flynn lesion in year prior to trial) 27% of natalizumab treated patients vs. 3% of placebo patients achieved ANTHONY. CDI: Confirmed disability improvements (CDI) was seen in 30% with NTZ vs 19% with placebo. Safety data: Risks of Tysabri include a potentially fatal infection called progressive multifocal leukoencephalopathy (PML) that is caused by the re-activation of the KATIE virus. Roughly 21% of the cases were fatal. Only ~20% were able to return to work after treatment. We can determine if you have been previously exposed to the JCV through the JCV antibody test. JCV antibody negative patients have never been exposed to the JCV and carry a risk of PML is <0.07/1000. The risk to convert from JCV antibody negative to JCV antibody positive is roughly 2.5% each year. We monitor for seroconversion with JCV antibody testing every 3-6 months. All patients that seroconvert will discuss the changed risk profile with MS center staff. JCV antibody negative patients will generally have MRI scans roughly once each year and we will check LFTs twice annually. 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 Considering Optic Density (OD), the PML Risk per 1000 JCV Ab positive natalizumab treated patients: Index <0.9 >0.9 <1.5 >1.5 1- 12mo 0.01 0.1 0.2 13-24mo 0.05 0.3 0.9 25-36mo 0.2 0.8 2.6 37-48mo 0.4 2.0 6.8 49-60mo 0.5 2.4 7.9 61-72mo 0.6 3.0 10.0 When applying the Optic Density, percentage risk of PML is as follows: Index <0.9 >0.9 <1.5 >1.5 1- 12mo 0.001 0.01 0.02 13-24mo 0.005 0.03 0.09 25-36mo 0.02 0.08 0.26 37-48mo 0.04 0.2 0.68 49-60mo 0.05 0.24 0.79 61-72mo 0.06 0.3 1.0 In JCV antibody positive patients, we often obtain more frequent MRI scans to screen for asymptomatic PML lesions. MRIs may occur twice to four times annually per clinician/patient preference. If symptoms of PML or concerning MRI changes are found, we will stop natalizumab and obtain CSF (spinal fluid) for JCV PCR testing, and possibly obtain further MRI scans. If we are concerned for PML we will recommend inpatient hospital admission for 7 total plasma exchanges (done every other day) and high dose steroids to help stave off IRIS. Stopping natalizumab: When stopping natalizumab (Tysabri), we often administer 1gram IVMP monthly for the subsequent 3 months. We believe that this helps decrease the risk of IRIS post natalizumab (Tysabri) cessation. I am managing Odessa Ireland for complex chronic condition(s) serving as the focal point for the patient's care for consistency and continuity over time. I personally spent at least 30 minutes on this clinical encounter today. This time includes time reviewing the chart, reviewing labs and/or imaging, seeing the patient, counseling the patient and/or family, coordinating care, placing orders and writing the note. Staffed with Dr. Bri Kraft Sincerely, Rajan Sutton MD Multiple Sclerosis and Neuroimmunology Fellow Physician [facility] Neurology Multiple Sclerosis [facility] I [address] [place] [address]. [address], [place] [address] Clinic: Cosigned by Bri Kraft MD at 10/27/2024 10:52 AM EST Associated attestation - Bri Kraft MD - 10/27/2024 10:52 AM EST Please see my additional note. Otherwise I saw and examined this patient, and have read and edited the fellow's note. I agree with the findings, assessment, and plan. Bri Kraft MD, [facility] Staff Neurologist Neuroimmunology & Multiple Sclerosis [facility] Sclerosis [place] [address], [facility] 10:52 AM 10/27/24 documented in this encounter [facility] 10-24-2024 Note Was notified by one of my nurses that the patient was seizing in the hallway. I went out and the patient was laying on her side being supported by our family welfare social work professor. The patient was having asynchronous rhythmic movements of her upper extremities and pelvic like thrusting movements. The patient's eyes were closed. She had a nonfixed gaze. Her eyes were responsive to light. She had been seizing for roughly 6 minutes. A rapid response call was made. She was taken over to the emergency department. In the emergency department, the patient continued to have abnormal movements. She had vital signs that were normal except for tachycardia. The patient was given 2 mg of Ativan and she began to come out of her episode. The patient was able to follow commands but was confused. Decision was made to load her with 2 g of Keppra and if she returns back to her baseline to discharge her on Keppra 150 mg twice daily and seizure precautions. We will check a Keppra level to determine where her level is at. Depending on the results of this, we may further down titrate her dose. Admittedly, I did feel that the patient's episode may have been nonepileptic. I spent in total 40 minutes with direct patient care for this episode and appointment Bri Kraft MD, [facility] Staff Neurologist Neuroimmunology & Multiple Sclerosis [facility] Sclerosis [place] [address], [facility] 2:32 PM 10/24/24 AUTHENTICATED BY BRI KRAFT, ON 10/27/2024 10:53:40 [facility] 10-24-2024 Note Attestation signed by Bri Kraft MD at 10/27/2024 10:52 AM Please see my additional note. Otherwise I saw and examined this patient, and have read and edited the fellow's note. I agree with the findings, assessment, and plan. Bri Kraft MD, [facility] Staff Neurologist Neuroimmunology & Multiple Sclerosis [facility] Sclerosis [place] [address], [facility] 10:52 AM 10/27/24 [facility] Sclerosis [place] [facility] Follow Up Note 10/24/2024 Review of Neuroimmunological Disease Primary Neurological Diagnosis: RRMS Date of Symptom Onset: 03/06/15 Year of diagnosis: 2015 Relapse History 2015 Optic neuritis Most Recent EDSS: Year of insidious progression: Time on DMT Month Year Month Year Multiple-Sclerosis -Disease-Modifying Therapies natalizumab dimethyl fumarate Start: 2020 Stop: 2020 Multiple-Sclerosis - Disease-Modifying Therapies natalizumab dimethyl fumarate Most Recent MRI Brain: 04/20/24 Most Recent MRI Cervical Spine: 04/20/24 Most Recent MRI Thoracic Spine: 10/28/21 MRI Changes 2021 2021 2021 2021 2020 2020 2019 2018 2018 brain brain cervical spine thoracic spine brain brain brain brain cervical spine Number of New lesions: 0 1 0 0 0 0 0 0 Most Recent OCT: CSF Studies: 2018 2014 OCB: unknown yes Other Testing: Ethnicity: Dominant Hand: Highest Level of education (in years): CHIEF COMPLAINT Multiple Sclerosis follow up from 04/20/2024 CONTEMPORARY HISTORY Odessa Ireland reports no new neurological symptoms since her last clinic visit. Concerns today include DMT safety monitoring and bruising . She notes increased easy bruising and small noticeable veins in her feet with purplish discoloration. These have been present for a couple weeks. These were noticed by a nurse after she had a fall. Leg swelling 3-4 days per week which she notes her PCP is aware of; has been present for many years. DMT: She reports excellent tolerance and excellent adherence to her Tysabri (natalizumab) . She has a port and receives her infusions [facility]. She denies symptoms of recent illness/infection. She is due for DMT safety monitoring testing. She is up to date with surveillance MRI studies. MS Symptoms: Energy levels are generally stable / unchanged. Provigil helps. Mood is more depressed lately . Depression is managed by psychiatry. Seeing a counselor regularly. Amitriptyline was initially started for pain control but now being managed by psychiatry. Cognition is stable / unchanged. Bladder is good. Gait/Balance: She had a fall 09/21, 10/19. States her right leg gave out. She had her cane but it did not steady her. Gait is worsened by heat. Uses single point cane regularly and uses rollator for longer distances. She is not a candidate for Ampyra due to history of seizures. 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 Bowels: Docusate keeps her BM regular. She is involved in regular exercise / physical conditioning. She is currently supplementing with vitamin D. She is not sure the dose she takes. She is on disability. Seizure Keppra 1000 mg BID Last seizure 2017 ... Until today after her office visit when she had one in the [employer] and had to be transported to the ED Migraine Sumatriptan - took a dose in late September ROS AND OTHER HISTORY Multiple Sclerosis Center ROS - 10/24/24 1219 General Change in weight No Fever No Chills No Night Sweats No Cough No Shortness of Breath No Joint pain / swelling Yes Muscle pain / cramps Yes Chest pain No Palpitations No Nausea / Vomiting No Neurologic Double vision No Blurred / decreased vision No Difficulty swallowing No Difficulty with speech No Numbness / tingling Yes Painful skin sensations Yes Muscle weakness Yes Heat sensitivity Yes Motor fatigue No Incoordination/ poor balance Yes Difficulty walking No Recent Falls Yes L'hermitte No Difficulty with thinking and memory Yes Pathologic fatigue No Depression Yes Anxiety Yes Urinary urgency No Urinary frequency No Urinary retention / hesitancy No Recent Urinary Tract Infections No Bowel complaints No Sexual Dysfunction No Poor sleep Yes Headaches Yes Recent Seizures No 14 systems reviewed and negative except for as noted above. Past medical, surgical, social & family history reviewed in the electronic medical record. She has a past medical history of Anxiety, Cancer (HCC) (07/14/2003), Deep vein thrombosis (HCC) (2007), Diabetes (HCC), Fatty liver, GERD (gastroesophageal reflux disease), Migraine, Mult (more content not included)... [facility] 10-18-2024 Telephone encounter Note Requested medications were sent to [facility] on 10/17/24. Removed from this encounter to close. [employer] message sent to patient. [facility] 10-18-2024 Miscellaneous Notes Requested medications were sent to [facility] on 10/17/24. Removed from this encounter to close. [employer] message sent to patient. documented in this encounter [facility] 10-17-2024 Telephone encounter Note Last visit 04/20/2024 Next visit 10/24/2024 Please advise [facility] 10-17-2024 Miscellaneous Notes Last visit 04/20/2024 Next visit 10/24/2024 Please advise documented in this encounter [facility] 10-12-2024 History of Present illness Narrative Patient arrived ambulatory with steady gait. She completed the Tysabri screening and is okay for treatment today. Port accessed w/o difficulty. Medication hung to infuse over 1 hour. It infused w/o difficulty. Port flushed and deaccessed. Pt declined staying for the 1 hour observation. Patient given calendar, verbalized understanding of future appointments. documented in this encounter [facility] 09-08-2024 History of Present illness Narrative Patient arrived ambulatory with steady gait. She completed the Tysabri screening and is okay for treatment today. Port accessed w/o difficulty. Medication hung to infuse over 1 hour. It infused w/o difficulty. Port flushed and deaccessed. Pt declined staying for the 1 hour observation. Patient given calendar, verbalized understanding of future appointments. documented in this encounter [facility] 08-11-2024 History of Present illness Narrative Pt arrived ambulatory with steady gait. She completed the Tysabri screening and is okay for treatment today. Port accessed w/o difficulty. Medication hung to infuse over 1 hour. It infused w/o difficulty. Port flushed and deaccessed. Pt declined staying for the 1 hour observation period then left with her September schedule. documented in this encounter [facility] 07-14-2024 History of Present illness Narrative Pt here for tysabri as scheduled. Reports she feels well today with no new or worsening complaints. Tysabri pre transfusion checklist complete. Port accessed per protocol. Brisk blood return noted, flushes with ease. NS started at KVO. Tysabri infused over 1 hour. Pt declined 1 hour observation/ VS. Pt tolerated well. Port flushed and de accessed per protocol. Band aide applied. Dc'd in stable ambulatory condition with treatment calendar. documented in this encounter [facility] 06-16-2024 History of Present illness Narrative Patient is here for Tysabri infusion as scheduled. Completed the Tysabri questionnaire and patient denies any issues. Port accessed under sterile procedure with brisk blood return verified. Line flushes with ease. Tysabri scheduled to infuse over 1 hour patient declined 1 hour observation and VS. Upon completion, port flushed via push/pause method, saline locked, site de-accessed and covered with band aid. Tolerated her infusion well. Treatment calendar reviewed. Patient discharged in stable condition to private vehicle. documented in this encounter [facility] 05-19-2024 History of Present illness Narrative Patient is here for Tysabri infusion. Completed the Tysabri questionnaire, pt denies any new or worsening symptoms, reports feeling well and tolerating infusions. Port accessed per protocol, brisk blood return noted, flushes without difficulty. Tysabri infused over 1 hour. Pt declines 1 hour OBS. Pt tolerated without difficulty, Port de-accessed and saline locked per protocol. Treatment calendar provided. Patient discharged ambulatory in stable condition. documented in this encounter [facility] 04-21-2024 History of Present illness Narrative Pt here for tysabri as scheduled. Reports she feels well today with no new or worsening complaints. Tysabri pre transfusion checklist complete. Port accessed per protocol. Brisk blood return noted, flushes with ease. NS started at KVO. Tysabri infused over 1 hour with 1 hour observation. Pt tolerated well. Port flushed and de accessed per protocol. Band aide applied. Dc'd in stable ambulatory condition with treatment calendar. documented in this encounter [facility] 04-20-2024 History of Present illness Narrative Images from the original note were not included. [facility] Clinic Follow Up Note 04/20/2024 Review of Neuroimmunological Disease Primary Neurological Diagnosis: RRMS Date of Symptom Onset: 03/06/15 Year of diagnosis: 2014 Relapse History 2015 Optic neuritis Most Recent EDSS: Year of insidious progression: Time on DMT Month Year Month Year Multiple-Sclerosis -Disease-Modifying Therapies natalizumab dimethyl fumarate Start: 2020 Stop: 2020 Multiple-Sclerosis - Disease-Modifying Therapies natalizumab dimethyl fumarate Most Recent MRI Brain: 05/04/22 Most Recent MRI Cervical Spine: 10/28/21 Most Recent MRI Thoracic Spine: 10/28/21 MRI Changes 2021 2021 2021 2021 2020 2020 2019 2018 2018 brain brain cervical spine thoracic spine brain brain brain brain cervical spine Number of New lesions: 0 1 0 0 0 0 0 0 Most Recent OCT: CSF Studies: 2018 2014 OCB: unknown yes Other Testing: Ethnicity: Dominant Hand: Highest Level of education (in years): CHIEF COMPLAINT Multiple Sclerosis follow up from 10/2023 CONTEMPORARY HISTORY Odessa Ireland reports worsening chronic symptoms since her last clinic visit. Concerns today include left arm tingling . DMT: She reports excellent tolerance and excellent adherence to her Tysabri (natalizumab) . She is due for infusion tomorrow. JCV antibody negative October 2023 She denies symptoms of recent illness/infection. She is due for DMT safety monitoring testing. She is up to date with surveillance MRI studies. She has longstanding left arm tingling related to previous MS symptoms. This has seemed worse/more pronounced over the past 2 weeks. She notes she lifted something heavy with that arm and thinks this may have been a triggering factor. Denies pain. Arms seems weaker to her. She denies neck or shoulder pain with the left side. MS Symptoms: Energy levels are generally fair / acceptable. Takes Provigil daily. Was without it for a week and her fatigue was worsened, very sluggish and had difficulty thinking/slower processing. Mood is good. Depression is managed by psychiatry. Cognition is stable / unchanged. See above regarding Provigil. Bladder is good. Gait is worsened by heat. Uses single point cane regularly and uses rollator for longer distances. She is not a candidate for Ampyra due to history of seizures. Fell in late March due to fatigue. She is involved in regular exercise / physical conditioning. She is doing chair yoga and walking on the treadmill twice per week at [employer]. She is currently supplementing vitamin D3. Last level 49 10/12/2023 and takes 05038 international units daily She is not using tobacco. ROS AND OTHER HISTORY Multiple Sclerosis Center ROS - 04/20/24 1244 General Change in weight No Fever No Chills No Night Sweats No Cough No Shortness of Breath No Joint pain / swelling Yes Muscle pain / cramps Yes Chest pain No Palpitations No Nausea / Vomiting No Neurologic Double vision No Blurred / decreased vision No Difficulty swallowing No Difficulty with speech No Numbness / tingling Yes left hand/fingers increase tingling over past couple weeks. Painful skin sensations No Muscle weakness Yes Heat sensitivity Yes Motor fatigue No Incoordination/ poor balance No Difficulty walking No Recent Falls No L'hermitte No Difficulty with thinking and memory Yes Pathologic fatigue No Depression Yes Anxiety Yes Urinary urgency No Urinary frequency No Urinary retention / hesitancy No Recent Urinary Tract Infections No Bowel complaints No Sexual Dysfunction No Poor sleep No Headaches No Recent Seizures No 14 systems reviewed and negative except for as noted above. Past medical, surgical, social & family history reviewed in the electronic medical record. She has a past medical history of Anxiety, Cancer (HCC) (07/14/2003), Deep vein thrombosis (HCC) (2007), Diabetes (HCC), Fatty liver, GERD (gastroesophageal reflux disease), Migraine, Multiple sclerosis (HCC), Neuropathic pain, Peripheral neuropathy, Pseudoseizure, PTSD (post-traumatic stress disorder), Stroke (HCC) (03/22), and Syncope. She has a past surgical history that includes section, low transverse; Tubal ligation; Cholecystectomy; Hysterectomy; Oophorectomy; tonsillectomy; Interventional Radiology (N/A, 10/26/2022); and Carpal tunnel release (2015). She reports that she has never smoked. She has never used smokeless tobacco. She reports current alcohol use of about 4.0 standard drinks of alcohol per week. She reports that she does not use drugs. Her family history includes Alcohol abuse in her father; Bone cancer in her maternal aunt; Breast cancer in her maternal aunt; Cancer in her father; Colon cancer in her maternal uncle; Dementia in her maternal grandmother and paternal grandmother; Depression in her mother; Diabetes in her mother; Heart disease in her father and mother; Hypertension in her brother, father, and maternal aunt; Lung cancer in an other family member; Lupus in her paternal aunt and paternal aunt; Memory loss in her maternal grandmother and paternal grandmother; Migraines in her father; Ovarian cancer in her mother; Post-traumatic stress disorder in her father; Stroke in her father. Her Allergies Allergen Reactions Codeine Other (See Comments) Confusion, tried to jump out of a window She has a current medication list which includes the following prescription(s): amitriptyline, atorvastatin, baclofen, biotin, cholecalciferol (vitamin d3), docusate sodium, gabapentin, lactobacillus acidophilus, levetiracetam, lorazepam, metformin, modafinil, multivitamin, natalizumab, omeprazole, sertraline, sumatriptan, wegovy, amitriptyline, and sertraline. GENERAL PHYSICAL EXAMINATION Vital Signs: Blood pressure 114/83, pulse (!) 106, weight 120.5 kg (265 lb 11.2 oz), not currently . General Appearance: in no apparent distress, well nourished, conversant, cooperative Eyes: Anicteric sclerae. Moist conjunctivae. No lid edema noted. HENT: Head atraumatic, normocephalic. Oropharynx clear. Moist mucous membranes. Lungs: Normal respiratory effort. No intercostal retractions. No dyspnea during conversation. Extremities: no clubbing, cyanosis, pedal edema, ulcer nor wound noted. Skin: warm, dry, no rash, no ecchymoses, no petechiae noted Pysch: normal mood, behavior, speech, dress, and thought processes MULTIPLE SCLEROSIS PERFORMANCE TEST Neurological Testing VALUE Visual acuity (2.5% low contrast) OD: 20/120 with contacts OS: 20/80 with contacts 90 second Symbol Digit Modality Test 38 Nine Hole Peg Test Right 1st: 31.61 Right 2nd: Left 1st: 38.63 Left 2nd: Timed 25 [address] Trial 1: 12.43 Trial 2: 11.77 NEUROLOGICAL EXAMINATION MENTAL STATUS: intact to casual conversation. Normal language function regarding fluency and comprehension. Normal mood and affect. CRANIAL NERVES: CN II: Visual tamayo full to confrontation. Pupils are equal, round, and reactive to light. Visual tamayo full to confrontation , On pupillary testing, pupils are equally round and reactive to light and accomodation. CN III, IV, : Eyes are aligned in primary gaze. Extra ocular movements intact without nystagmus. Normal convergence. No GEOFF noted. No ptosis noted. CN V, VII: Sensation and strength are intact and symmetric. CN VIII: Hearing intact to finger rub bilaterally CN IX, X: Palate elevated symmetrically. No dysarthria noted. CN XI: Sternocleidomastoid and trapezius strength is full bilaterally. CN XII: The tongue protrudes in the midline. No fasciculation or atrophy appreciated. PYRAMIDAL: Manual Muscle Testing: Strength D B T WE FF IO HF KF KE DF PF Right 4 4 4 4 5 4 3 3 3 3 3 Left 4 4 4 4 5 4 3 [address] weakness noted throughout Deep Tendon Reflexes: Bicep Tricep BR Patellar Ankle Right 1 1 1 1 1 Left 1 1 1 1 1 Additional Reflexes: Jaw Jerk Pectoral Canales Cross Adductor Plantar Right Absent Flexor Left Absent Flexor SENSORY: decreased sensation to LT/PP on the right lower extremity and right upper extremity COORDINATION: Intact jffgig-zy-clei and xjtf-ik-lytc tests. Normal smooth eye pursuits, no saccadic intrusions noted. No truncal ataxia noted with sitting. Normal drieps-wlmp-lnjdaa and fine finger movements without evidence of appendicular dysmetria nor ataxia. No tremors or abnormal movements noted. GAIT: Cautious with cane, hesitant, functional, narrow based, immediate balance is normal, unable to perform heel walking toe walking or tandem gait PARACLINICAL DATA (I have personally reviewed the information below) MRI Brain (I have independently reviewed the following images): Study Date: 04/20/2024. Comparison Study Date: 04/21/2023. Study Location:[facility], [place] protocol used: yes. Scanner Strength: 3T, Slice and Gap thickness: 1 mm voxel and NO gap, Image Quality: excellent. Findings vs. comparision study: New/Enlarged T2 bright lesions: no New T1 black holes: no Visual assessment of atrophy: unchanged MRI brain Impression: stable study Neuroradiologist Impression: pending IMPRESSION Odessa Ireland is a 43 y.o. female with relapsing multiple sclerosis on disease modifying therapy with Tysabri (s/p 36 infusions, JCV negative) who presents for follow up evaluation. Current concerns include left upper extremity paresthesias . At her last visit, she was instructed to avoid driving after an episode of syncope. She has remained without further syncopal episodes for 4 months now. I recommend the following plan: PLAN Disease Modifying Therapy: - We recommend Odessa Ireland remain on disease modifying therapy with Tysabri (natalizumab) . - Plan for safety labs: CBCPD, LFTs, JCV Antibody - Please notify us of any plans for future 2. Disease monitoring - Next due for MRI brain 04/2025 - Patient was asked to call our clinic for any new neurologic symptoms concerning for relapse or to send me a [employer] message with any non-urgent questions/concerns. We reviewed the difference between an inflammatory relapse and a pseudo-relapse secondary to physical exertion, heat, illness, emotional stress. 3. Symptomatic management and health maintenance - Vitamin D Deficiency: Vitamin D level 42, check at next visit, continue current supplement - Chronic Fatigue: Continue modafanil (Provigil) - Gait Disorder: Continue using cane and ambulatory assist device, fall precautions - Neuropathic pain: continue gabapentin 800/400/800 mg - Depression: Continue counseling and following with psychiatry 4. Syncope: Resolved Regarding driving we discussed that she has been without an episode of unprovoked loss of conscious for greater than 3 months and thus it is likely safe that she returns to driving. PLAN RELATED TO CLINIC FOLLOW UP 1. I will schedule a follow-up visit in 6 months and PRN. 2. Please arrive 30 minutes before your appointment to allow time to complete paperwork and MS specific testing prior to seeing your MS specialist. If you arrive late you will be asked to reschedule your visit. 3. Please sign up for the e-volo patient portal. Ricebook provides assess to your medical record and test results, allows you to communicate with your care providers, and allows you to complete patient questionnaires prior to each clinic visit. 4. When your testing is completed, your MS care team will review all results and contact you if a finding requires follow up before your next visit. Otherwisee, we will discuss your test results [id number] at your next clinic visit. Many of your testing results, however, can be reviewed online through Ricebook. PATIENT AND CAREGIVER EDUCATION 1. People with MS who smoke tend to get worse faster compared to those that do not. Also, people with clinically isolated syndrome who smoke convert to MS faster than those who do not. 2. We recommend that all people with MS exercise regularly, to the extent that they are able. Swimming, water aerobics and yoga are excellent considerations. 3. We recommend caution when reading about MS on the Internet, as information may be inaccurate or outdated, even if it looks real . If you have questions about things you read, we recommend you discuss them with your care provider. Below are list of links to MS educational sources online: [facility] ([email or web address]) Multiple Sclerosis Association of [place] (www.mymsaa.org) Multiple Sclerosis Foundation (www.msfocus.org) Can do Multiple Sclerosis ( www.mscando.org ) National Multiple Sclerosis Society (www.nationalmssociety.org) Gather MS: linking people with MS to local community resources: https://www.[facility] ([facility])ms.com/ 4. For information on the [facility]'s clinical trial program please talk to your MS specialist. 5. All support and wellness opportunities will be offered free of charge at the [facility] [place] at [facility]. The [facility] is located in the [address] Pre-registration is required unless otherwise noted. Call [phone] or e-mail: [email or web address]. Call to confirm dates/times. 6. We believe that consistent use of your disease modifying therapy is one the most important tool to prevent MS relapses and future disability. Please communicate with us about your barriers to using your medication consistently. These may include convenience of use, cost, access to the medication and side effects. 7. Low levels of vitamin D have been associated with increased MS disease activity. Our goal vitamin D level in our MS patients is generally between 50-100 and you may require a supplement to reach these levels. 8. A healthy diet is beneficial in MS and obesity has been associated with increased risk of MS and disability associated with MS. We recommend a heart healthy diet: - A variety of fruits and vegetables - Whole grains - Healthy sources of protein (mostly plant based or lean, unprocessed meats) - Limit processed foods, added sugars and extra salt - Limited or no alcohol intake 9. Multiple Sclerosis is an independent risk factor for accelerated bone loss (osteopenia/osteoperosis) and pathologic fractures. We recommend that all people with MS over age 50 have regular bone density testing with their PCP. I am managing Odessa Ireland for complex serious condition(s) serving as the focal point for the patient's care for consistency and continuity over time. I personally spent at least 30 minutes on this clinical encounter today. This time includes time reviewing the chart, reviewing labs and/or imaging, seeing the patient, counseling the patient and/or family, coordinating care, placing orders and writing the note. Sincerely, Rajan Sutton MD Multiple Sclerosis and Neuroimmunology Fellow Physician [facility] I [address] [place] [address]. [address], [place] [id number] Clinic: I saw and examined this patient, and have read and edited the fellows' note. I agree with the findings, assessment, and plan. Bri Kraft MD Staff Neurologist 04/23/24 documented in this encounter [facility] 04-20-2024 History of Present illness Narrative Images from the original note were not included. [facility] Clinic Follow Up Note 04/20/2024 Review of Neuroimmunological Disease Primary Neurological Diagnosis: RRMS Date of Symptom Onset: 03/06/15 Year of diagnosis: 2015 Relapse History 2015 Optic neuritis Most Recent EDSS: Year of insidious progression: Time on DMT Month Year Month Year Multiple-Sclerosis -Disease-Modifying Therapies natalizumab dimethyl fumarate Start: 2020 Stop: 2020 Multiple-Sclerosis - Disease-Modifying Therapies natalizumab dimethyl fumarate Most Recent MRI Brain: 05/04/22 Most Recent MRI Cervical Spine: 10/28/21 Most Recent MRI Thoracic Spine: 10/28/21 MRI Changes 2021 2021 2021 2021 2020 2020 2019 2018 2018 brain brain cervical spine thoracic spine brain brain brain brain cervical spine Number of New lesions: 0 1 0 0 0 0 0 0 Most Recent OCT: CSF Studies: 2018 2014 OCB: unknown yes Other Testing: Ethnicity: Dominant Hand: Highest Level of education (in years): CHIEF COMPLAINT Multiple Sclerosis follow up from 10/2023 CONTEMPORARY HISTORY Odessa Ireland reports worsening chronic symptoms since her last clinic visit. Concerns today include left arm tingling . DMT: She reports excellent tolerance and excellent adherence to her Tysabri (natalizumab) . She is due for infusion tomorrow. JCV antibody negative October 2023 She denies symptoms of recent illness/infection. She is due for DMT safety monitoring testing. She is up to date with surveillance MRI studies. She has longstanding left arm tingling related to previous MS symptoms. This has seemed worse/more pronounced over the past 2 weeks. She notes she lifted something heavy with that arm and thinks this may have been a triggering factor. Denies pain. Arms seems weaker to her. She denies neck or shoulder pain with the left side. MS Symptoms: Energy levels are generally fair / acceptable. Takes Provigil daily. Was without it for a week and her fatigue was worsened, very sluggish and had difficulty thinking/slower processing. Mood is good. Depression is managed by psychiatry. Cognition is stable / unchanged. See above regarding Provigil. Bladder is good. Gait is worsened by heat. Uses single point cane regularly and uses rollator for longer distances. She is not a candidate for Ampyra due to history of seizures. Fell in late March due to fatigue. She is involved in regular exercise / physical conditioning. She is doing chair yoga and walking on the treadmill twice per week at [employer]. She is currently supplementing vitamin D3. Last level 49 10/12/2023 and takes 69696 international units daily She is not using tobacco. ROS AND OTHER HISTORY [facility] ROS - 04/20/24 1244 General Change in weight No Fever No Chills No Night Sweats No Cough No Shortness of Breath No Joint pain / swelling Yes Muscle pain / cramps Yes Chest pain No Palpitations No Nausea / Vomiting No Neurologic Double vision No Blurred / decreased vision No Difficulty swallowing No Difficulty with speech No Numbness / tingling Yes left hand/fingers increase tingling over past couple weeks. Painful skin sensations No Muscle weakness Yes Heat sensitivity Yes Motor fatigue No Incoordination/ poor balance No Difficulty walking No Recent Falls No L'hermitte No Difficulty with thinking and memory Yes Pathologic fatigue No Depression Yes Anxiety Yes Urinary urgency No Urinary frequency No Urinary retention / hesitancy No Recent Urinary Tract Infections No Bowel complaints No Sexual Dysfunction No Poor sleep No Headaches No Recent Seizures No 14 systems reviewed and negative except for as noted above. Past medical, surgical, social & family history reviewed in the electronic medical record. She has a past medical history of Anxiety, Cancer ([facility]) (07/14/2003), Deep vein thrombosis (HCC) (2007), Diabetes (HCC), Fatty liver, GERD (gastroesophageal reflux disease), Migraine, Multiple sclerosis (HCC), Neuropathic pain, Peripheral neuropathy, Pseudoseizure, PTSD (post-traumatic stress disorder), Stroke (HCC) (03/22), and Syncope. She has a past surgical history that includes section, low transverse; Tubal ligation; Cholecystectomy; Hysterectomy; Oophorectomy; tonsillectomy; Interventional Radiology (N/A, 10/26/2022); and Carpal tunnel release (2015). She reports that she has never smoked. She has never used smokeless tobacco. She reports current alcohol use of about 4.0 standard drinks of alcohol per week. She reports that she does not use drugs. Her family history includes Alcohol abuse in her father; Bone cancer in her maternal aunt; Breast cancer in her maternal aunt; Cancer in her father; Colon cancer in her maternal uncle; Dementia in her maternal grandmother and paternal grandmother; Depression in her mother; Diabetes in her mother; Heart disease in her father and mother; Hypertension in her brother, father, and maternal aunt; Lung cancer in an other family member; Lupus in her paternal aunt and paternal aunt; Memory loss in her maternal grandmother and paternal grandmother; Migraines in her father; Ovarian cancer in her mother; Post-traumatic stress disorder in her father; Stroke in her father. Her Allergies Allergen Reactions Codeine Other (See Comments) Confusion, tried to jump out of a window She has a current medication list which includes the following prescription(s): amitriptyline, atorvastatin, baclofen, biotin, cholecalciferol (vitamin d3), docusate sodium, gabapentin, lactobacillus acidophilus, levetiracetam, lorazepam, metformin, modafinil, multivitamin, natalizumab, omeprazole, sertraline, sumatriptan, wegovy, amitriptyline, and sertraline. GENERAL PHYSICAL EXAMINATION Vital Signs: Blood pressure 114/83, pulse (!) 106, weight 120.5 kg (265 lb 11.2 oz), not currently . General Appearance: in no apparent distress, well nourished, conversant, cooperative Eyes: Anicteric sclerae. Moist conjunctivae. No lid edema noted. HENT: Head atraumatic, normocephalic. Oropharynx clear. Moist mucous membranes. Lungs: Normal respiratory effort. No intercostal retractions. No dyspnea during conversation. Extremities: no clubbing, cyanosis, pedal edema, ulcer nor wound noted. Skin: warm, dry, no rash, no ecchymoses, no petechiae noted Pysch: normal mood, behavior, speech, dress, and thought processes MULTIPLE SCLEROSIS PERFORMANCE TEST Neurological Testing VALUE Visual acuity (2.5% low contrast) OD: 20/120 with contacts OS: 20/80 with contacts 90 second Symbol Digit Modality Test 38 Nine Hole Peg Test Right 1st: 31.61 Right 2nd: Left 1st: 38.63 Left 2nd: Timed 25 [address] Walk Trial 1: 12.43 Trial 2: 11.77 NEUROLOGICAL EXAMINATION MENTAL STATUS: intact to casual conversation. Normal language function regarding fluency and comprehension. Normal mood and affect. CRANIAL NERVES: CN II: Visual tamayo full to confrontation. Pupils are equal, round, and reactive to light. Visual tamayo full to confrontation , On pupillary testing, pupils are equally round and reactive to light and accomodation. CN III, IV, : Eyes are aligned in primary gaze. Extra ocular movements intact without nystagmus. Normal convergence. No GEOFF noted. No ptosis noted. CN V, VII: Sensation and strength are intact and symmetric. CN VIII: Hearing intact to finger rub bilaterally CN IX, X: Palate elevated symmetrically. No dysarthria noted. CN XI: Sternocleidomastoid and trapezius strength is full bilaterally. CN XII: The tongue protrudes in the midline. No fasciculation or atrophy appreciated. PYRAMIDAL: Manual Muscle Testing: Strength D B T WE FF IO HF KF KE DF PF Right 4 4 4 4 5 4 3 3 3 3 3 Left 4 4 4 4 5 4 3 [address] weakness noted throughout Deep Tendon Reflexes: Bicep Tricep BR Patellar Ankle Right 1 1 1 1 1 Left 1 1 1 1 1 Additional Reflexes: Jaw Jerk Pectoral Canales Cross Adductor Plantar Right Absent Flexor Left Absent Flexor SENSORY: decreased sensation to LT/PP on the right lower extremity and right upper extremity COORDINATION: Intact xzwjoa-gn-vohl and tojh-tj-idqb tests. Normal smooth eye pursuits, no saccadic intrusions noted. No truncal ataxia noted with sitting. Normal vtqsty-rbkz-pijhft and fine finger movements without evidence of appendicular dysmetria nor ataxia. No tremors or abnormal movements noted. GAIT: Cautious with cane, hesitant, functional, narrow based, immediate balance is normal, unable to perform heel walking toe walking or tandem gait PARACLINICAL DATA (I have personally reviewed the information below) MRI Brain (I have independently reviewed the following images): Study Date: 04/20/2024. Comparison Study Date: 04/21/2023. Study Location:[facility], [place] protocol used: yes. Scanner Strength: 3T, Slice and Gap thickness: 1 mm voxel and NO gap, Image Quality: excellent. Findings vs. comparision study: New/Enlarged T2 bright lesions: no New T1 black holes: no Visual assessment of atrophy: unchanged MRI brain Impression: stable study Neuroradiologist Impression: pending MRI Cervical Spine (I have independently reviewed the following images): Study Date: 04/20/2024. Comparison Study Date: 10/28/21. Study Location:[facility], [place] protocol used: yes. Scanner Strength: 3T, Image Quality: excellent. Findings: T2 bright lesions: no T1 flynn + lesions: no Cord atrophy: not noted Significant DDD / HNP: no Findings vs. comparision study: New/Enlarged T2 bright lesions: no New T1 flynn+ lesions: no Cord atrophy:unchanged DDD / HNP: unchanged MRI Cervical Spine Impression: stable study Neuroradiologist Impression: 1. Questionable T2 hyperintensity signal in the posterior left side of the cord measuring 7.5 mm and cc at C1-2 level best seen at series 4001, image 7 and series 2001, image 7. This was not present the prior study. No associated abnormal enhancement is noted. 2. No other abnormal lesion were noted within limitations study IMPRESSION Odessa Ireland is a 43 y.o. female with relapsing multiple sclerosis on disease modifying therapy with Tysabri (s/p 36 infusions, JCV negative) who presents for follow up evaluation. Current concerns include left upper extremity paresthesias . At her last visit, she was instructed to avoid driving after an episode of syncope. She has remained without further syncopal episodes for 4 months now. I recommend the following plan: PLAN Disease Modifying Therapy: - We recommend Odessa Ireland remain on disease modifying therapy with Tysabri (natalizumab) . - Plan for safety labs: CBCPD, LFTs, JCV Antibody - Please notify us of any plans for future 2. Disease monitoring - Next due for MRI brain 04/2025 - Patient was asked to call our clinic for any new neurologic symptoms concerning for relapse or to send me a Ricebook message with any non-urgent questions/concerns. We reviewed the difference between an inflammatory relapse and a pseudo-relapse secondary to physical exertion, heat, illness, emotional stress. 3. Symptomatic management and health maintenance - Vitamin D Deficiency: Vitamin D level 42, check at next visit, continue current supplement - Chronic Fatigue: Continue modafanil (Provigil) - Gait Disorder: Continue using cane and ambulatory assist device, fall precautions - Neuropathic pain: continue gabapentin 800/400/800 mg - Depression: Continue counseling and following with psychiatry 4. Syncope: Resolved Regarding driving we discussed that she has been without an episode of unprovoked loss of conscious for greater than 3 months and thus it is likely safe that she returns to driving. PLAN RELATED TO CLINIC FOLLOW UP 1. I will schedule a follow-up visit in 6 months and PRN. 2. Please arrive 30 minutes before your appointment to allow time to complete paperwork and MS specific testing prior to seeing your MS specialist. If you arrive late you will be asked to reschedule your visit. 3. Please sign up for the e-volo patient portal. Ricebook provides assess to your medical record and test results, allows you to communicate with your care providers, and allows you to complete patient questionnaires prior to each clinic visit. 4. When your testing is completed, your MS care team will review all results and contact you if a finding requires follow up before your next visit. Otherwisee, we will discuss your test results [id number] at your next clinic visit. Many of your testing results, however, can be reviewed online through Ricebook. PATIENT AND CAREGIVER EDUCATION 1. People with MS who smoke tend to get worse faster compared to those that do not. Also, people with clinically isolated syndrome who smoke convert to MS faster than those who do not. 2. We recommend that all people with MS exercise regularly, to the extent that they are able. Swimming, water aerobics and yoga are excellent considerations. 3. We recommend caution when reading about MS on the Internet, as information may be inaccurate or outdated, even if it looks real . If you have questions about things you read, we recommend you discuss them with your care provider. Below are list of links to MS educational sources online: [facility] (www.[email or web address]) Multiple Sclerosis Association of [place] (www.mymsaa.org) Multiple Sclerosis Foundation (www.msfocus.org) Can do Multiple Sclerosis ( www.mscando.org ) National Multiple Sclerosis Society (www.nationalmssociety.org) Gather MS: linking people with MS to local community resources: https://www.[facility] ([facility])ms.com/ 4. For information on the [facility] [place]'s clinical trial program please talk to your MS specialist. 5. All support and wellness opportunities will be offered free of charge at the [facility] at [facility]. The [facility] is located in the [address] Pre-registration is required unless otherwise noted. Call [phone] or e-mail: [email or web address]. Call to confirm dates/times. 6. We believe that consistent use of your disease modifying therapy is one the most important tool to prevent MS relapses and future disability. Please communicate with us about your barriers to using your medication consistently. These may include convenience of use, cost, access to the medication and side effects. 7. Low levels of vitamin D have been associated with increased MS disease activity. Our goal vitamin D level in our MS patients is generally between 50-100 and you may require a supplement to reach these levels. 8. A healthy diet is beneficial in MS and obesity has been associated with increased risk of MS and disability associated with MS. We recommend a heart healthy diet: - A variety of fruits and vegetables - Whole grains - Healthy sources of protein (mostly plant based or lean, unprocessed meats) - Limit processed foods, added sugars and extra salt - Limited or no alcohol intake 9. Multiple Sclerosis is an independent risk factor for accelerated bone loss (osteopenia/osteoperosis) and pathologic fractures. We recommend that all people with MS over age 50 have regular bone density testing with their PCP. I am managing Odessa Ireland for complex serious condition(s) serving as the focal point for the patient's care for consistency and continuity over time. I personally spent at least 30 minutes on this clinical encounter today. This time includes time reviewing the chart, reviewing labs and/or imaging, seeing the patient, counseling the patient and/or family, coordinating care, placing orders and writing the note. Sincerely, Rajan Sutton MD Multiple Sclerosis and Neuroimmunology Fellow Physician [facility] I [address], [place] [address] Clinic: I saw and examined this patient, and have read and edited the fellows' note. I agree with the findings, assessment, and plan. Bri Kraft MD Staff Neurologist 04/23/24 documented in this encounter [facility] 03-23-2024 History of Present illness Narrative Pt here for tysabri as scheduled. Reports she feels well today with no new or worsening complaints. Tysabri pre transfusion checklist complete. Port accessed per protocol. Brisk blood return noted, flushes with ease. NS started at KVO. Tysabri infused over 1 hour with 1 hour observation. Pt tolerated well. Port flushed and de accessed per protocol. Band aide applied. Dc'd in stable ambulatory condition with treatment calendar. documented in this encounter [facility] 03-17-2024 Telephone encounter Note Last visit 01/13/2024 Next visit 04/20/2024 [facility] 03-17-2024 Miscellaneous Notes Last visit 01/13/2024 Next visit 04/20/2024 documented in this encounter [facility] 03-01-2024 Telephone encounter Note Last visit 01/13/2024 Next visit 04/20/2024 Current pharmacy is closing down so new scripts are being requested for the new pharmacy [facility] 03-01-2024 Miscellaneous Notes Last visit 01/13/2024 Next visit 04/20/2024 Current pharmacy is closing down so new scripts are being requested for the new pharmacy documented in this encounter [facility] 02-24-2024 History of Present illness Narrative Patient is here for Tysabri infusion. Completed the Tysabri questionnaire, pt denies any new or worsening symptoms, reports feeling well and tolerating infusions. Port accessed per protocol on second attempt, brisk blood return noted, flushes without difficulty. Tysabri infused over 1 hour with 1 hour observation. Pt tolerated without difficulty, Port de-accessed and heparinized per protocol. Treatment calendar provided. Patient discharged ambulatory in stable condition. documented in this encounter [facility] 01-27-2024 History of Present illness Narrative Patient is here for Tysabri infusion. Completed the Tysabri questionnaire, pt denies any new or worsening symptoms, reports feeling well and tolerating infusions. Port accessed per protocol on second attempt, brisk blood return noted, flushes without difficulty. Tysabri infused over 1 hour with 1 hour observation. Pt tolerated without difficulty, Port de-accessed and heparinized per protocol. Treatment calendar provided. Patient discharged ambulatory in stable condition. documented in this encounter [facility] 01-13-2024 Bri Cruz MD - 01/13/2024 1:46 PM EDT Images from the original note were not included. I recommend continuing neuro-immunologic DMT with Amber (natalizumab) I recommend checking the following labs/tests for her neurologic therapy Lab (for natalizumab): quarterly KATIE virus Ab, CBC, liver enzymes Event monitor Echocardium I recommend MR head w and w/o contrast and MR C Spine w and w/o contrast due in 3 month(s) to be reviewed at the next visit. For symptom management, I recommend the following plan: - that we continue current symptomatic medications without change. We recommend a regular exercise program. We recommend that taking 2000 iu of zokp-[id number] vitamin D3 daily. and We will check a viamin D level. Our goal level is between 50-100. . I recommend making the following referrals: Sleep medicine for fatigue Tilt table test Smoking and second hand smoke lead to worsening of your health. If you are smoking, we recommend choosing a quit date. Once you have chosen a quit date, we will discuss medication and alternative therapies to help you quit. Furthermore, I recommend she contact 1800-QUIT NOW for free assistance with smoking cessation counseling and nicotine replacement therapy if needed. Activity Restrictions: You experienced an episode of altered awareness. The cause of this event was most likely spell of unknown cause. This condition can reoccur with little or no warning so you need to take precautions and you need to be monitored by your outpatient provider (family doctor or neurologist), who can give you updated instructions based on that monitoring. It is your responsibility to self-report to the [facility] regarding your experience with seizures. In addition to any more restrictive measures put in place by the [facility], you should not drive for at least 3-6 months of being seizure free because of the risk of reoccurrence. A final decision should be made by your outpatient provider. You are also advised to avoid behaviors that would be dangerous if you have another episode including, but not limited to, swimming alone, bathing alone, cooking with an open flame, operating firearms, and working from heights. PLAN REGARDING MANAGMENT OF FUTURE MS RELAPSES We discussed the concept of an MS relapse and our center's approach to managing MS relapses today. We discussed the concept of a pseudo-MS relapse where MS patients will often experience a transient worsening of baseline neurological symptoms in the setting of fever, infection, and severe psycho-social stressors. We recommend that Odessa Ireland contact our office in the event of any new or worsening neurological symptoms lasting longer than two days. PLAN REGARDING DISEASE MODIFYING THERAPY We discussed the natural history of relapsing remitting multiple sclerosis and the realistic goals of disease modifying therapies (DMT) to decrease the frequency and severity of MS attacks and decrease neurological worsening. We shared our belief that consistent DMT use in relapsing forms of multiple sclerosis is one of the most important tools we use to improve outcomes. We stress the importance of DMT adherence and the need for constant open communication between the patient and care team. We briefly eviewed relevant mechanism of action, efficacy, safety and tolerability of several multiple sclerosis DMTs based on both clinical trial data and our MS centers experience. We also briefly discussed clinical trials for relapsing remitting multiple sclerosis at [facility]. For more information about our clinical trial opportunities please contact your MS provider. Odessa Ireland's neurological functioning and her response to DMT will assessed through several lines of evidence collected before each clinic visit. This includes her responses to MS symptoms specific questionnaires and her performance on MS specific clinical tests of vision, thinking, hand function and walking speed. Our center requires Odessa Ireland to always arrive at least 30 minutes before each clinic appointment to allow time for these tests. Response to disease modifying therapy will also be assessed through MRI scans of the brain and sometimes the spinal cord. This is needed to identify sub-clinical disease activity and her response to her disease modifying therapy. Optical Coherence Tomography (OCT), which measures the retinal nerve fiber layer (RNFL) of the eye, is another complementary way to measure MS disease activity. PLAN RELATED TO CLINIC FOLLOW UP 1. I will schedule a follow-up visit in Return in about 6 months (around 07/15/2024). . 2. Please arrive 30 minutes before your appointment to allow time to complete paperwork and MS specific testing prior to seeing your MS specialist. If you arrive late you may not be able to be seen that day and may need to reschedule your visit. 3. Please sign up for the e-volo patient portal. Ricebook gives you controlled access to the same Epic medical records your [facility] MS care team use, via browser or mobile justin (for iOS and Android). Its allows you to review some of your testing results, and provides you with a communication link to your care providers. 4. Many of your test results can be reviewed online at any time through Ricebook. Your MS care team will review all results, but will only contact you if a finding requires urgent medical attention. Your MS Care team will always discuss your test results with you [id number] at your next clinic. PATIENT AND CAREGIVER EDUCATION 1. People with MS who smoke tend to have a faster progression of disease compared to those that do not. Also, people with clinically isolated syndrome who smoke are at risker to convert to MS compared to non-smokers. 2. We recommend that all MS patient participate in regular exercise, to the extent that they are able. Swimming, water aerobics and yoga are excellent considerations. 3. A healthy diet is beneficial in MS. We recommend the following: A. Calorie and content (simple carbohydrates, fats) control B. Share portions C. Eat SLOWER D. Salad dressing on the side E. Watch out of alcohol calories F. Drink a glass of water before each meal 4. Low levels of vitamin D have been associated with increased MS disease activity. Higher vitamin D levels have been associated with decreased MS disease activity. Our goal vitamin D level in our MS patients is generally between 50-100. 5. Multiple Sclerosis is an independent risk factor for accelerated bone loss (osteopenia/osteoperosis) and pathologic fractures. We recommend that all people with MS over age 50 have regular bone density testing with their PCP. 6. People with MS and their family must use caution when reading anything on the Internet about MS. Information on the Internet may be inaccurate or outdated, even if it looks real . We encourage you to discuss with us information you read on the internet, to help you clarify if it is accurate and if it applies to you specifically. Below are list of links to MS educational sources online: [facility] (www.[facility].rumr le word: multiple sclerosis) Multiple Sclerosis Association of [place] (www.mymsaa.org) Multiple Sclerosis Foundation (www.msfocus.org) Can do Multiple Sclerosis ( www.mscando.org ) National Multiple Sclerosis Society (www.nationalmssociety.org) [facility] (www.mscenter.[facility]) Gather MS: linking people with MS to local community resources: https://www.[facility] ([facility])ms.com/ 7. For information on the [facility]'s clinical trial program please talk to your MS provider. 8.Support Groups: MS Groups take place at The [facility] Education and Resource Center at [facility]: [address] [address]. Parking vouchers will be provided. All support and wellness opportunities will be offered free of charge at the [facility] Resource [facility] at [facility]. The [facility] is located in the Neuroscience [address] Pre-registration is required unless otherwise noted. Call [phone] or e-mail: [email or web address]. Call to confirm dates/times. [facility] 2020 MS Educational Series Presentations by Drs. Nguyen Lynn, Isael Randall, Bri Kraft, Shar Kraft and other MS team members. All presentations: Wednesday of the month October through June (May is Wednesday due to holiday) from 6-7 PM (immediately following the Life with MS support group meeting). Light refreshments will be served. Caregiver/General Manager Food Support Group: offers opportunities to connect with others, receive education and support, as well as learn about community resources. Meets of each month 2-3 pm or 6-7pm. Art Therapy: designed to provide a means to help you relax through creative activities, as well as express and explore your emotions and concerns. Led by a Registered Art Therapist. Meets Wednesday of each month: 11am-12:30p and Wednesday of each : 6pm-7:30pm Music Therapy: a fun and useful tool to maximize neurological function and connect mind, body and spirit. Led by a Board Certified Neurologic Music Therapist. Meets and of each month: 1pm-2pm and Wednesday: 6:30-7:30pm Neuro Choir: Singing benefits your health, recovery and well-being. The choir is led by a Board Certified Neurologic Music Therapist. Meets : 2pm-3pm and Wednesday of each month: 6:30-7:30pm Neuro Yoga: learn and enhance your yoga skills. Opportunities include: caregiver class, 6 week intro series, chair yoga, and a class for experienced yoga practitioners. Call for schedule. Behavioral Health Support Group: For adult friends/family members of adults with mental illness. Receive support, share challenges, and learn about resources. Every Wednesday: 4:30pm-5:30pm. Registration not needed. For more information on the [facility] patient and family support groups and [facility] patient programs please call [phone] or email [email or web address] 10. We believe that consistent disease modifying therapy adherence is one of the most important tools to combat relapsing remitting multiple sclerosis We also believe in the need for constant open communication between the patient and care team about disease modifying therapy tolerance. 11. Education regarding disease modifying therapy discussed today: Education regarding NATALIZUMAB (Tysabri) Education regarding NATALIZUMAB (Tysabri), disease modifying therapy administered as an IV infusion once every 28 days or 42 days after 6 months. Mechanism of Action: Natalizumab is a monoclonal antibody against VLA4 that prevents immune cells from leaving the blood stream to enter into the brain (causing inflammatory damage in the setting of MS). Efficacy Data: Efficacy data is derived from the AFFIRM and SENTINEL trials, the terminal clerk follow up studies, and our own clinical experience using natalizumab in our patients since 2003. Relapses: In the AFFIRM trial, natalizumab (ARR 0.22) decreased relapse rates by 68% compared to placebo (ARR 0.67). Disability: Compared to placebo, NTZ lowed risk of 3 month confirmed disability progression by 42% and reduced flynn+ enhancing lesions by 92%. ANTHONY: In post hoc analysis of the AFFIRM trial, ANTHONY (no evidence of disease activity: no attacks, no 3 month confirmed disability progression on EDSS, no new / enlarged T2 lesions and no new flynn+ enhancing lesions for 24 months) was achieved in 37% of natalizumab treated patients, compared to 7% of placebo patients. In aggressive patients (2+ attacks and 1+ flynn lesion in year prior to trial) 27% of natalizumab treated patients vs. 3% of placebo patients achieved ANTHONY. CDI: Confirmed disability improvements (CDI) was seen in 30% with NTZ vs 19% with placebo. TYSABRI ASSOCIATED PML RISK 1. Risks of Tysabri include a potentially fatal infection called progressive multifocal leukoencephalopathy (PML) that is caused by the re-activation of the KATIE virus. Roughly 20% of the cases were fatal. Many of the surviving patients suffered neurological deficits with only ~20% able to return to work after treatment. We can determine if you have been previously exposed to the JCV through the JCV antibody test. 2. Risk factors for tysabri related PML include JCV antibody positive status, prior immunosuppressive therapies, and number of months on tysabri. Understanding risk of tysabri related PML risk is calculated in the following manner: JCV ANTIBODY NEGATIVE patients have never been exposed to the JCV and carry a risk of PML is <0.09/999. The risk to convert from JCV antibody negative to JCV antibody positive is roughly ~5-7% each year. We monitor for seroconversion with JCV antibody testing every 3 months. JCV ANTIBODY POSITIVE and have had prior immunosuppressive therapy, are in a higher PML risk category. Risk of PML is as follows: Natalizumab Exposure (months) Risk per 1000 Risk as % 1-24 2 0.2 25-48 11 1.1 49-72 9 0.9 JCV antibody positive and HAVE NOT HAD prior immunosuppression, risk of PML is further refined depending on the Optic Density (OD). Considering Optic Density (OD), percentage risk of PML is as follows: Index <0.9 >0.9 <1.5 >1.5 1- 12mo 0.001 0.01 0.02 13-24mo 0.005 0.03 0.09 25-36mo 0.02 0.08 0.26 37-48mo 0.04 0.2 0.68 49-60mo 0.05 0.24 0.79 61-72mo 0.06 0.3 1.0 3. In JCV antibody positive patients, we often obtain more frequent MRI scans to screen for asymptomatic PML lesions. MRIs may occur twice to four times annually per clinician/patient preference. 4. If symptoms of PML or concerning MRI changes are found, we will stop natalizumab and obtain CSF (spinal fluid) for JCV PCR testing, and possibly obtain further MRI scans. If we are concerned for PML we will recommend inpatient hospital admission for 7 total plasma exchanges (done every other day) and high dose steroids to help stave off IRIS. Sincerely, Bri Kraft MD @DATE@ documented in this encounter [facility] 01-13-2024 History of Present illness Narrative [facility] Department of Neurology Clinic Follow Up Note 01/13/2024 IMPRESSION: 1. Relapse remitting multiple sclerosis 2. Gait disorder 3. Seizure disorder 4. Chronic fatigue 5. Cognitive complaints 6. Headaches 7. Mood disorder 8. Vitamin D deficiency 9. Syncope Odessa Ireland is a 43 y.o. female with a past medical history of relapsing remitting multiple sclerosis who is presenting today as a follow-up. Multiple sclerosis In regards to the patient's diagnosis, the patient has active relapsing remitting multiple sclerosis. The patient seems to be tolerating Tysabri well. Consequently, we will plan to continue the patient on Tysabri as long as she does not develop a JCV index greater than 0.9, breakthrough disease, recurrent infections, opportunistic infections, or other troublesome side effects. We spent time reviewing the risks, side effects, and benefits of Tysabri. While on Tysabri, the patient needs to get a JCV index every 3 months. The patient should also get a CBC and LFT checked annually. The patient will be next due for an MRI of her brain and cervical spine without contrast in April 2024. If the patient ever broke through on Tysabri, then I would favor escalating her to ocrelizumab. However, it may be reasonable to consider escalation to Lemtrada depending on how badly she broke through. If the patient became intolerant of Tysabri, then I will consider ozanimod, ocrelizumab, Mavenclad, or ofatumumab. Gait disorder In regards to the patient's gait disorder, it is difficult to tell how impaired her gait is due to functional overlays. I feel that the patient needs to continue with physical therapy. The patient would not be a candidate for for Ampyra due to her history of seizures. Seizure disorder In regards the patient's seizure disorder, the patient is unable to find a local neurologist. Consequently, as long as the patient does not develop recurrent seizures, we will continue the patient on Keppra 1000 milligrams twice a day. If she broke through, then I would consider Vimpat. However, it may be more appropriate to consider referral to the epilepsy clinic. Chronic fatigue In regards to the patient's chronic fatigue, I feel that Provigil is a reasonable option in her. We will continue her on this as needed. I will make a referral to sleep medicine. She should also continue physical therapy. Cognitive complaints In regards to the patient's cognitive complaints, I feel that they are more likely due to polypharmacy, multiple sclerosis, and her mood disorder. I think the patient could also benefit from speech therapy. Headaches In regards to her headaches, they seem to be under decent control with amitriptyline 150 mg by mouth at bedtime and Imitrex. I would encourage the patient to do physical therapy. I also counseled the patient that she is taking ibuprofen too frequently. I advised her that she takes it more than twice a week, that she may get a medication overuse headache.. I feel the patient should also do physical therapy for headaches. Mood disorder In regards to the patient's mood disorder, I have concerns that several of the medication that she is on may be impacting her memory. I will defer this management to her psychiatrist. Vitamin D deficiency In regards to the patient's vitamin D deficiency, we will continue the patient on 2000 units of vitamin D3 once daily. We will check a vitamin D level today. We will make adjustments to her supplementation as needed. Syncope In regards to the patient's syncope, I am uncertain what the underlying etiology of this is. I would favor that the patient gets an aggressive cardiac workup first. I will also add on a event monitor and a tilt table test for the patient. She is getting an echocardiogram by her primary care doctor. I feel that there is also a necessary step. Given we are uncertain why she had this episode and she had this episode while sitting, I would favor that she does not drive for at least 3 months without another episode or until we determine the exact cause of her episode. I reviewed driving restrictions with the patient. I warned her that if she drove in this time period, then she could be putting herself or others at risk of significant injury if she were to lose consciousness behind the wheel. Also it would be safest if the patient did not do anything that would be dangerous if she suddenly lost consciousness over this time. Follow-up At the patient's next visit, which should be 4 months from today, we should review the results of her MRI of the brain and cervical spine that should have been done prior to the visit. We should determine the results of her syncope workup. We should monitor the patient for any evidence of disease activity. We should ensure that natalizumab is still a safe and effective treatment in her. We should ensure that she is getting the required lab work to safely infuse this drug. We should monitor her gait issues and ensure that she is following with therapy. I instructed the patient to call my office with any questions, concerns, issues or problems. I also counseled the patient if she is suffering a medical emergency to not call my office but either call 911 or go immediately to the emergency department. I recommend the following plan: PLAN: I recommend continuing neuro-immunologic DMT with Amber (natalizumab) I recommend checking the following labs/tests for her neurologic therapy Lab (for natalizumab): quarterly KATIE virus Ab, CBC, liver enzymes Event monitor Echocardium I recommend MR head w and w/o contrast and MR C Spine w and w/o contrast due in 3 month(s) to be reviewed at the next visit. For symptom management, I recommend the following plan: - that we continue current symptomatic medications without change. We recommend a regular exercise program. We recommend that taking 2000 iu of bsax-ege-aygymfz vitamin D3 daily. and We will check a viamin D level. Our goal level is between 50-100. . I recommend making the following referrals: Sleep medicine for fatigue Tilt table test Smoking and second hand smoke lead to worsening of your health. If you are smoking, we recommend choosing a quit date. Once you have chosen a quit date, we will discuss medication and alternative therapies to help you quit. Furthermore, I recommend she contact 1800-QUIT NOW for free assistance with smoking cessation counseling and nicotine replacement therapy if needed. No follow-ups on file. If new questions or concerns arise prior to your next visit, please call our office for urgent concerns (emergency room) or for new symptoms lasting > 24 hours or send a Andera message for non-urgent concerns as you may need to be seen earlier. ADDITIONAL PATIENT INFORMATION I am treating/managing Odessa Ireland complex chronic/serious condition(s) of Multiple Sclerosis serving as the focal point for the patient's care for consistency and continuity over time Total Time Spent: On the date of this encounter, I spent a total of at least 40 minutes on the encounter, including pre-visit work, intra-visit work, post-visit work and associated documentation. Bri Kraft MD Voice recognition technology was used to aid in the documentation of this medical record. Some words may not be printed exactly as they were spoken. While efforts were made to carefully edit and correct any inaccuracies, some typographical errors may be present. The provider or the clinic can be contacted if corrections are needed. Review of Neuroimmunological Disease Primary Neurological Diagnosis: RRMS Date of Symptom Onset: 03/06/15 Year of diagnosis: 2014 Relapse History 2015 Optic neuritis Most Recent EDSS: Year of insidious progression: Time on DMT Month Year Month Year Multiple-Sclerosis -Disease-Modifying Therapies natalizumab dimethyl fumarate Start: 2020 Stop: 2020 Multiple-Sclerosis - Disease-Modifying Therapies natalizumab dimethyl fumarate Most Recent MRI Brain: 05/04/22 Most Recent MRI Cervical Spine: 10/28/21 Most Recent MRI Thoracic Spine: 10/28/21 MRI Changes 2021 2021 2021 2021 2020 2020 2019 2018 2018 brain brain cervical spine thoracic spine brain brain brain brain cervical spine Number of New lesions: 0 1 0 0 0 0 0 0 Most Recent OCT: CSF Studies: 2018 2014 OCB: unknown yes Other Testing: Ethnicity: Dominant Hand: Highest Level of education (in years): Chief Complaint: Neurology Follow Up Visit from 10/12/23 INTERIM HISTORY Life changes: No Medical history/non-neurologic medication changes: No Since last visit, she reports that she had a fainting spells. She reports that she was at physical therapy. She reports that there was nothing that was wrong. She reports that while she was sitting in chair. She looked down and then looked up. She felt like she was floating. Her PT went to get here water. She reports that they did not think that she loss. She reports that it was just after therapy. She was sitting relaxing. She reports that remembers having a drink of the water. She reports that fell out the chair. She does not remembering the falling part. She reports that she did not notice any change. She reports that she had an EKG, she had a CT of the head. She reports that she went to the ED and was told everything was good. She was confused and was dosing off and on. She was not confused when she woke up. She reports that she may have been dehydrated. She reports that she saw her PCP and she is going to get an echo. She is has had a few falls. She has had issues since . She reports that time before that she has tripped over her dug She reports that her headaches are having slight headaches every day. She reports that she is ussing a pressure mask. sHe is only getting a headaches about twice per monht. She reports that it is non-time lock, light sensityive pounding nonpositional headache. She reports that it is not getting worse. Energy levels are generally fair / acceptable.She is doing okay. She reports that this is running back to normal. She has not had a sleep clinic. She reports that her racing mind is not as bad. Mood is fair / acceptable. This is a littie bnit better. She is seeing psychiatric and psychology. She reports she is not having thoughts of harming herself. Cognition is good. Bladder is good. She is on mcc disability She is involved in regular exercise / physical conditioning. She reports that she is doing chair yoga and a peddle thing. She is currently supplementing vitamin D3. She is not using tobacco. Symptom Inventory: Review of systems performed by the ENDBANDER/RN/medical intern, personally reviewed and viewable in the current patient encounter. [facility] ROS No documentation. 14 systems reviewed and negative except for as noted above. Past Medical History: Diagnosis Date Anxiety Diabetes (HCC) Fatty liver GERD (gastroesophageal reflux disease) Multiple sclerosis (HCC) Neuropathic pain Peripheral neuropathy Pseudoseizure PTSD (post-traumatic stress disorder) Past Surgical History: Procedure Laterality Date SECTION, LOW TRANSVERSE CHOLECYSTECTOMY CV IR INTERVENTIONAL RADIOLOGY N/A 10/26/2022 Procedure: IR PORT IMPLANT CHEST; Surgeon: Blanco Enrique CNP; Location: [facility]; Service: Interventional Radiology HYSTERECTOMY OOPHORECTOMY TONSILLECTOMY TUBAL LIGATION Social History Tobacco Use Smoking status: Never Smokeless tobacco: Never Vaping Use Vaping Use: Never used Substance Use Topics Alcohol use: Yes Comment: rarely, Drug use: Never Family History Problem Relation Age of Onset Ovarian cancer Mother Heart disease Mother Diabetes Mother Depression Mother Cancer Father Heart disease Father Hypertension Father Migraines Father Stroke Father Post-traumatic stress disorder Father Hypertension Brother Breast cancer Maternal Aunt Colon cancer Maternal Uncle Lupus Paternal Aunt Dementia Maternal Grandmother Memory loss Maternal Grandmother Dementia Paternal Grandmother Memory loss Paternal Grandmother Lung cancer Other Lupus Paternal Aunt Bone cancer Maternal Aunt Seizures Neg Hx Multiple sclerosis Neg Hx Allergies Allergen Reactions Codeine Other (See Comments) Confusion, tried to jump out of a window GENERAL PHYSICAL EXAMINATION Vital Signs: Weight 126.1 kg (277 lb 14.4 oz), not currently . General Appearance: in no apparent distress, well nourished, conversant, cooperative Eyes: Anicteric sclerae. Moist conjunctivae. No lid edema noted. HENT: Head atraumatic, normocephalic. Oropharynx clear. Moist mucous membranes. Neck/ Thyroid:trachea midline. Supple. No massess. No thyromegaly. CV: RRR, , no murmurs, rubs, clicks, or gallops, Palpable pulses throughout, and no lower extremity edema Lungs: Normal respiratory effort. No intercostal retractions. No dyspnea during conversation. Abdomen: soft, non-distended Extremities: no clubbing, cyanosis, pedal edema, ulcer nor wound noted. Skin: warm, dry, no rash, no ecchymoses, no petechiae noted Pysch: normal mood, behavior, speech, dress, and thought processes NEUROLOGIC EXAMINATION MENTAL STATUS: intact to casual conversation. Normal language function regarding fluency and comprehension. Normal mood and affect. CRANIAL NERVES: CN II: Visual tamayo full to confrontation CN III, IV, : Eyes are aligned in primary gaze. Extra ocular movements intact without nystagmus. Normal convergence. No GEOFF noted. No ptosis noted. CN V, VII: Sensation and strength are intact and symmetric. CN VIII: Hearing intact to finger rub bilaterally CN IX, X: Palate elevated symmetrically. No dysarthria noted. CN XI: Sternocleidomastoid and trapezius strength is full bilaterally. CN XII: The tongue protrudes in the midline. No fasciculation or atrophy appreciated. PYRAMIDAL: Pronator drift noted on the right , Satelliting not noted., poor effort Manual Muscle Testing: Right hip extension 0/5 when test but 5/5 when patient flexes left hip D B T WE FF IO HF KF KE DF PF Right 3 4 4 4 4 4 3 w/ patrick sign 3 4 3 3 Left 5 5 5 5 5 5 5 5 5 5 5 Modified Michael Score: B T Hip add KF KE DF PF Right 0 0 0 0 0 Left 0 0 0 0 0 SENSORY:light touch decreased in right side COORDINATION: Normal smooth eye pursuits, no saccadic intrusions noted. No truncal ataxia noted with sitting. Normal fvuhkn-ugfm-vxieel, fine finger, and exbw-zq-ewkf movements without evidence of appendicular dysmetria nor ataxia. No tremors or abnormal movements noted. GAIT: Description: hesitant, functional, Stand from seated position: requires multiple attempts, Station: narrow based, Immediate Standing Balance: stable and requires support/device, Romberg Testing: stable with eyes open, but sways with eyes closed, Stride length:shuffling, Arm Swing: normal, Knee swing: normal , Heel Strike: normal, Turn: normal, Toe Walking: impaired bilaterally , Heel Walking: normal, Tanden Walking: not possible DIAGNOSTIC TESTING LABS Abstract on 10/20/2023 Component Date Value Ref Range Status JCV Ab by Inhibition Interpretation 10/12/2023 Negative Negative Final Stratify JCV Ab (with Index) w/RFL* 10/12/2023 0.15 Final JCV Antibody 10/12/2023 Negative Negative, Indeterminate Final Lab Draw on 10/12/2023 Component Date Value Ref Range Status Sodium 10/12/2023 142 135 - 145 mmol/L Final Potassium 10/12/2023 4.3 3.5 - 5.1 mmol/L Final Chloride 10/12/2023 104 98 - 108 mmol/L Final Bicarbonate 10/12/2023 26 21 - 32 mmol/L Final Anion Gap 10/12/2023 16 10 - 20 mmol/L Final Glucose 10/12/2023 83 65 - 99 mg/dL Final BUN 10/12/2023 11 8 - 25 mg/dL Final Creatinine 10/12/2023 0.54 0.40 - 1.10 mg/dL Final eGFR 10/12/2023 119 >=60 mL/min/1.73 m2 Final BUN/Creatinine Ratio 10/12/2023 20.4 (H) 10.0 - 20.0 Final Total Protein 10/12/2023 6.9 6.0 - 8.0 g/dL Final Albumin 10/12/2023 4.2 3.2 - 5.2 g/dL Final Calcium 10/12/2023 9.1 8.4 - 10.2 mg/dL Final Alkaline Phosphatase 10/12/2023 140 40 - 150 U/L Final AST 10/12/2023 36 (H) 0-35 U/L U/L Final ALT 10/12/2023 50 (H) 0-35 U/L U/L Final Total Bilirubin 10/12/2023 0.2 0.0 - 1.3 mg/dL Final Vit D, 25-Hydroxy 10/12/2023 49 30 - 100 ng/mL Final WBC 10/12/2023 12.51 (H) 4.50 - 11.00 K/mcL Final RBC 10/12/2023 4.72 4.00 - 5.20 M/mcL Final Hemoglobin 10/12/2023 12.4 12.0 - 16.0 g/dL Final Hematocrit 10/12/2023 39.8 36.0 - 46.0 % Final MCV 10/12/2023 84.3 80.0 - 100.0 fL Final MCH 10/12/2023 26.3 26.0 - 34.0 pg Final MCHC 10/12/2023 31.2 31.0 - 37.0 g/dL Final Platelets 10/12/2023 258 150 - 400 K/mcL Final RDW - CV 10/12/2023 14.8 11.6 - 14.8 % Final MPV 10/12/2023 8.6 (L) 9.4 - 12.4 fL Final Neutrophils 10/12/2023 31.8 % Final Lymphocytes 10/12/2023 58.4 % Final Monocytes 10/12/2023 6.5 % Final Eosinophils 10/12/2023 2.3 % Final Basophils 10/12/2023 0.5 % Final IG Percent 10/12/2023 0.50 % Final Neutrophils Abs 10/12/2023 3.99 1.70 - 7.00 K/mcL Final Lymphocytes Abs 10/12/2023 7.30 (H) 0.90 - 4.00 K/mcL Final Monocytes Abs 10/12/2023 0.81 0.30 - 0.90 K/mcL Final Eosinophils Abs 10/12/2023 0.29 0.00 - 0.50 K/mcL Final Basophils Abs 10/12/2023 0.06 0.00 - 0.30 K/mcL Final IG Absolute 10/12/2023 0.06 0.00 - 0.30 K/mcL Final Nucleated RBC 10/12/2023 0.4 % Final Nucleated RBC Abs 10/12/2023 0.05 (H) 0.00 - 0.00 K/mcL Final ] documented in this encounter [facility] 01-12-2024 History of Present illness Narrative Patient is here for port flush. She states she was at the hospital yesterday and they accessed her port and could not get a blood return. However they put iv contrast dye in anyway and never heparinized it before it was deaccessed. Today the port is pink approximately two inches about port insertion site and is warm. It appears the contrast may have leaked under her skin and the needle was not in properly. She denies any fevers or chills. She says the redness was worse this morning and she put ice on it and it has already got better. Port does not appear to be infected. Port accessed per protocol. Blood return achieved after about 7 flushes and with patient lying flat. Port heparinized and needle deaccessed. She will keep an eye on the redness and call her doctor if the redness gets any worse. documented in this encounter [facility] 12-28-2023 History of Present illness Narrative Patient is here for Tysabri infusion as scheduled. Completed the Tysabri questionnaire and patient denies any issues. Port accessed under sterile procedure with brisk blood return verified. Line flushes with ease. Tysabri scheduled to infuse over 1 hour with 1 hour post observation. VS stable. Upon completion, port flushed, heparinized, site de-accessed and covered with band aid. Tolerated her infusion well. Treatment calendar provided. Patient discharged in stable condition to private vehicle. documented in this encounter [facility] 12-23-2023 Miscellaneous Notes ODESSA LEFT A VM TO CANCEL HER INFUSION HER SON IS IN THE HOSPITAL documented in this encounter [facility] 12-23-2023 Telephone encounter Note ODESSA LEFT A VM TO CANCEL HER INFUSION HER SON IS IN THE HOSPITAL [facility] 12-09-2023 Telephone encounter Note Last visit 10/12/2023 Next visit 04/11/2024 [facility] 12-09-2023 Miscellaneous Notes Last visit 10/12/2023 Next visit 04/11/2024 documented in this encounter [facility] 11-25-2023 History of Present illness Narrative Patient is here for Tysabri infusion as scheduled. Completed the Tysabri questionnaire and patient denies any issues. Port accessed under sterile procedure with brisk blood return verified. Line flushes with ease. Tysabri scheduled to infuse over 1 hour with 1 hour post observation. Declined VS at completion of medication. Upon completion, port flushed, heparinized, site de-accessed and covered with band aid. Tolerated her infusion well. Treatment calendar provided. Patient discharged in stable condition to private vehicle. documented in this encounter [facility] 10-28-2023 History of Present illness Narrative Patient is here for Tysabri infusion as scheduled. Completed the Tysabri questionnaire and patient denies any issues. Port accessed under sterile procedure with brisk blood return verified. Line flushes with ease. Tysabri scheduled to infuse over 1 hour with 1 hour post observation. Declined VS at completion of medication. Upon completion, port flushed, heparinized, site de-accessed and covered with band aid. Tolerated her infusion well. Treatment calendar provided. Patient discharged in stable condition to private vehicle. documented in this encounter [facility] [employer] 10-12-2023 History of Present illness Narrative Pt seen today in [facility] clinic for therapy screen. Limitations in gross functional mobility: impaired balance, difficulty walking, pain with functional mobility, motor fatigue Ongoing migraines with neck pain that is radiating to L shoulder with head turning. Overall feels she is having less migraines, now 1-2x/month. Balance trouble has been more noticeable to herself, but her family has always noticed it. Using tripod walker in home which steadies herself better. Most of falls happen after going up and down the stairs. She uses her SPC on good days and today is a good day. Device/Equipment: FWW or tripod walker in home, SPC when going to appointments Falls in past 6 months: 6-7 times in the last 3 months Fatigue: yes, naps several times/day Current routine exercise program: none Most recent therapy services: years ago Functional Mobility Assessment: сергей CONCEPCION, states her legs are tingling when she walks from the neuro exam performed by Dr. Multani. No LOB or significant path deviation noted. Therapy needs identified: neuro outpatient PT [facility] for neck main/migraines and balance difficulty Desired location: External location requested For external services: Orders need faxed to patients desired location [facility] ext [phone] Education provided: Importance of attendance to therapy, Role of exercise and exercise guidelines, energy conservation, and Fatigue vs deconditioning No charge for PT screen this date. Will continue to follow at [facility] clinic and assess for PT related needs. [facility] Department of Neurology Clinic Follow Up Note 10/12/2023 IMPRESSION: 1. Relapse remitting multiple sclerosis 2. Gait disorder 3. Seizure disorder 4. Chronic fatigue 5. Cognitive complaints 6. Headaches 7. Mood disorder 8. Vitamin D deficiency Odessa Ireland is a 43 y.o. female with a past medical history of relapsing remitting multiple sclerosis who is presenting today as a follow-up. Multiple sclerosis In regards to the patient's diagnosis, the patient has active relapsing remitting multiple sclerosis. The patient seems to be tolerating Tysabri well. Consequently, we will plan to continue the patient on Tysabri as long as she does not develop a JCV index greater than 0.9, breakthrough disease, recurrent infections, opportunistic infections, or other troublesome side effects. We spent time reviewing the risks, side effects, and benefits of Tysabri. While on Tysabri, the patient needs to get a JCV index every 3 months. The patient should also get a CBC and LFT checked annually. The patient will be next due for an MRI of her brain and cervical spine without contrast in April 2024. If the patient ever broke through on Tysabri, then I would favor escalating her to ocrelizumab. However, it may be reasonable to consider escalation to Lemtrada depending on how badly she broke through. If the patient became intolerant of Tysabri, then I will consider ozanimod, ocrelizumab, Mavenclad, or ofatumumab. We will check an Octave again today Gait disorder In regards to the patient's gait disorder, it is difficult to tell how impaired her gait is due to functional overlays. I feel that the patient needs to get physical therapy. I feel that she benefit from a better cane to use in her house at the very least. Given that the patient has a history of seizures, she is not a candidate for Ampyra. Seizure disorder In regards the patient's seizure disorder, the patient is unable to find a local neurologist. Consequently, as long as the patient does not develop recurrent seizures, we will continue the patient on Keppra 1000 milligrams twice a day. If she broke through, then I would consider Vimpat. However, it may be more appropriate to consider referral to the epilepsy clinic. Chronic fatigue In regards to the patient's chronic fatigue, I feel that Provigil is a reasonable option in her. We will continue her on this as needed. I asked the patient to request a sleep referral from PT Cognitive complaints In regards to the patient's cognitive complaints, I feel that they are more likely due to polypharmacy, multiple sclerosis, and her mood disorder. I will discontinue Aricept. It does not have a role in the treatment of memory issues in MS patient. Headaches In regards to her headaches, they seem to be under decent control with amitriptyline 150 mg by mouth at bedtime and Imitrex. Given that she is having neck pain that trigger the headache we will try PT for this. Mood disorder In regards to the patient's mood disorder, I have concerns that several of the medication that she is on may be impacting her memory. I will defer this management to her psychiatrist. Vitamin D deficiency In regards to the patient's vitamin D deficiency, we will continue the patient on 2000 units of vitamin D3 once daily. We will check a vitamin D level today. We will make adjustments to her supplementation as needed. Follow-up At the patient's next visit, which should be 6 months from today, we should review the results of her MRI of the brain and cervical spine that should have been done prior to the visit. should monitor the patient for any evidence of disease activity. We should ensure that natalizumab is still a safe and effective treatment in her. We should ensure that she is getting the required lab work to safely infuse this drug. We should monitor her gait issues and ensure that she is following with therapy. I instructed the patient to call my office with any questions, concerns, issues or problems. I also counseled the patient if she is suffering a medical emergency to not call my office but either call 911 or go immediately to the emergency department. I recommend the following plan: PLAN: I recommend continuing neuro-immunologic DMT with Amber (natalizumab) I recommend checking the following labs/tests for her neurologic therapy Lab (for natalizumab): quarterly KATIE virus Ab, CBC, liver enzymes Octave (MS disease state labs) I recommend MR brain and cervical spine w/o contrast due in 6 month(s) For symptom management, I recommend the following plan: - that we continue current symptomatic medications without change. We recommend a regular exercise program. We recommend that taking 2000 iu of [id number] vitamin D3 daily. and We will check a viamin D level. Our goal level is between 50-100. . I recommend making the following referrals: Physical therapy for balance Smoking and second hand smoke lead to worsening of your health. If you are smoking, we recommend choosing a quit date. Once you have chosen a quit date, we will discuss medication and alternative therapies to help you quit. Furthermore, I recommend she contact 1800-QUIT NOW for free assistance with smoking cessation counseling and nicotine replacement therapy if needed. No follow-ups on file. If new questions or concerns arise prior to your next visit, please call our office for urgent concerns (emergency room) or for new symptoms lasting > 24 hours or send a mychart message for non-urgent concerns as you may need to be seen earlier. ADDITIONAL PATIENT INFORMATION I am treating/managing Odessa Ireland complex chronic/serious condition(s) of Multiple Sclerosis serving as the focal point for the patient's care for consistency and continuity over time Total Time Spent: On the date of this encounter, I spent a total of at least 40 minutes on the encounter, including pre-visit work, intra-visit work, post-visit work and associated documentation. Bri Kraft MD Voice recognition technology was used to aid in the documentation of this medical record. Some words may not be printed exactly as they were spoken. While efforts were made to carefully edit and correct any inaccuracies, some typographical errors may be present. The provider or the clinic can be contacted if corrections are needed. Review of Neuroimmunological Disease Primary Neurological Diagnosis: RRMS Date of Symptom Onset: 03/06/15 Year of diagnosis: 2014 Relapse History 2015 Optic neuritis Most Recent EDSS: Year of insidious progression: Time on DMT Month Year Month Year Multiple-Sclerosis -Disease-Modifying Therapies natalizumab dimethyl fumarate Start: 2020 Stop: 2020 Multiple-Sclerosis - Disease-Modifying Therapies natalizumab dimethyl fumarate Most Recent MRI Brain: 05/04/22 Most Recent MRI Cervical Spine: 10/28/21 Most Recent MRI Thoracic Spine: 10/28/21 MRI Changes 2021 2021 2021 2021 2020 2020 2019 2018 2018 brain brain cervical spine thoracic spine brain brain brain brain cervical spine Number of New lesions: 0 1 0 0 0 0 0 0 Most Recent OCT: CSF Studies: 2018 2014 OCB: unknown yes Other Testing: Ethnicity: Dominant Hand: Highest Level of education (in years): Chief Complaint: Neurology Follow Up Visit from 10/19/22 INTERIM HISTORY Life changes: No Medical history/non-neurologic medication changes: Yes, she got a port for her infusions. She was diagnosed with peripheral neuropathy. She had EMG which was diagnostic. Since last visit, she reports that she is still having issues for weakness and numbness. She is still having falling, but it is not as bad as she used to. She is using a walker in the house. She reports that she was having wobbliness. She reports that she is not doing physcial therapy. She reports that she was told that there was nothing else that could do. She reports that she right leg will give out from underneathing her. S?he reprots that her leg will just stop. She reports that her headaches are not to bad. She reports that resting makes and ibuprofen. sHe is only getting a headaches about twice per monht. She reports that it is non-time lock, light sensityive pounding nonpositional headache. She reports that it is not getting worse. Energy levels are generally fair / acceptable. It is doing better. She reports that she sleep well on and off. She reports that she is getting about 3 hours at time and might sleep about 6 in total. She reports that this is due to her pain. .She normally feels refreshed in the morning. She is napping a lot. She has not had a sleep clinic She reports that her racing mind can help her fall asleep. Mood is fair / acceptable. She still has anxiety and depression. She feels that it is doing well. She is seeing psychiatric and psychology. She reports she is not having thoughts of harming herself. Cognition is poor . She reports that she has problems with her talking. She reports that she is talking faster than she get the words out. Bladder is good. She is on terminal clerk disability She is involved in regular exercise / physical conditioning. She reports that she is doing chair yoga and a peddle thing. She is currently supplementing vitamin D3. She is not using tobacco. Symptom Inventory: Review of systems performed by the ENDBANDER/RN/medical intern, personally reviewed and viewable in the current patient encounter. [facility] ROS No documentation. 14 systems reviewed and negative except for as noted above. Past Medical History: Diagnosis Date Anxiety Diabetes (HCC) Fatty liver GERD (gastroesophageal reflux disease) Multiple sclerosis (HCC) Neuropathic pain Peripheral neuropathy Pseudoseizure PTSD (post-traumatic stress disorder) Past Surgical History: Procedure Laterality Date SECTION, LOW TRANSVERSE CHOLECYSTECTOMY CV IR INTERVENTIONAL RADIOLOGY N/A 10/26/2022 Procedure: IR PORT IMPLANT CHEST; Surgeon: Blanco Enrique CNP; [facility]; Service: Interventional Radiology HYSTERECTOMY OOPHORECTOMY TONSILLECTOMY TUBAL LIGATION Social History Tobacco Use Smoking status: Never Smokeless tobacco: Never Vaping Use Vaping Use: Never used Substance Use Topics Alcohol use: Yes Comment: rarely, Drug use: Never Family History Problem Relation Age of Onset Ovarian cancer Mother Heart disease Mother Diabetes Mother Depression Mother Cancer Father Heart disease Father Hypertension Father Migraines Father Stroke Father Post-traumatic stress disorder Father Hypertension Brother Breast cancer Maternal Aunt Colon cancer Maternal Uncle Lupus Paternal Aunt Dementia Maternal Grandmother Memory loss Maternal Grandmother Dementia Paternal Grandmother Memory loss Paternal Grandmother Lung cancer Other Lupus Paternal Aunt Bone cancer Maternal Aunt Seizures Neg Hx Multiple sclerosis Neg Hx Allergies Allergen Reactions Codeine Other (See Comments) Confusion, tried to jump out of a window GENERAL PHYSICAL EXAMINATION Vital Signs: Weight 121.7 kg (268 lb 3.2 oz), not currently . General Appearance: in no apparent distress, well nourished, conversant, cooperative Eyes: Anicteric sclerae. Moist conjunctivae. No lid edema noted. HENT: Head atraumatic, normocephalic. Oropharynx clear. Moist mucous membranes. Neck/ Thyroid:trachea midline. Supple. No massess. No thyromegaly. CV: RRR, , no murmurs, rubs, clicks, or gallops, Palpable pulses throughout and no lower extremity edema Lungs: Normal respiratory effort. No intercostal retractions. No dyspnea during conversation. Abdomen: soft, non-distended Extremities: no clubbing, cyanosis, pedal edema, ulcer nor wound noted. Skin: warm, dry, no rash, no ecchymoses, no petechiae noted Pysch: normal mood, behavior, speech, dress, and thought processes NEUROLOGIC EXAMINATION MENTAL STATUS: intact to casual conversation. Normal language function regarding fluency and comprehension. Normal mood and affect. CRANIAL NERVES: CN II: Visual tamayo full to confrontation CN III, IV, : Eyes are aligned in primary gaze. Extra ocular movements intact without nystagmus. Normal convergence. No GEOFF noted. No ptosis noted. CN V, VII: Sensation and strength are intact and symmetric. CN VIII: Hearing intact to finger rub bilaterally CN IX, X: Palate elevated symmetrically. No dysarthria noted. CN XI: Sternocleidomastoid and trapezius strength is full bilaterally. CN XII: The tongue protrudes in the midline. No fasciculation or atrophy appreciated. PYRAMIDAL: Pronator drift noted on the right , Satelliting not noted., poor effort Manual Muscle Testing: Right hip extension 0/5 when test but 5/5 when patient flexes left hip D B T WE FF IO HF KF KE DF PF Right 3 3 3 3 3 3 3 w/ patrick sign 3 3 3 3 Left 5 5 5 5 5 5 5 5 5 5 5 Modified Michael Score: B T Hip add KF KE DF PF Right 0 0 0 0 0 Left 0 0 0 0 0 SENSORY:light touch decreased in right side COORDINATION: Normal smooth eye pursuits, no saccadic intrusions noted. No truncal ataxia noted with sitting. Normal frfmxq-hlbl-afoglv, fine finger, and mglo-sy-lkkk movements without evidence of appendicular dysmetria nor ataxia. No tremors or abnormal movements noted. GAIT: Description: hesitant, functional, Stand from seated position: requires multiple attempts, Station: narrow based, Immediate Standing Balance: stable and requires support/device, Romberg Testing: stable with eyes open, but sways with eyes closed, Stride length:shuffling, Arm Swing: normal, Knee swing: normal , Heel Strike: normal, Turn: normal, Toe Walking: impaired bilaterally , Heel Walking: normal, Tanden Walking: not possible DIAGNOSTIC TESTING LABS Abstract on 04/30/2023 Component Date Value Ref Range Status JCV Ab by Inhibition Interpretation 04/20/2023 Negative Negative Final Stratify JCV Ab (with Index) w/RFL* 04/20/2023 0.07 Final JCV Antibody 04/20/2023 Negative Negative, Indeterminate Final Lab Draw on 04/20/2023 Component Date Value Ref Range Status Sodium 04/20/2023 140 135 - 145 mmol/L Final Potassium 04/20/2023 4.3 3.5 - 5.1 mmol/L Final Chloride 04/20/2023 105 98 - 108 mmol/L Final Bicarbonate 04/20/2023 24 21 - 32 mmol/L Final Anion Gap 04/20/2023 15 10 - 20 mmol/L Final Glucose 04/20/2023 101 (H) 65 - 99 mg/dL Final BUN 04/20/2023 10 8 - 25 mg/dL Final Creatinine 04/20/2023 0.57 0.40 - 1.10 mg/dL Final eGFR 04/20/2023 118 >=60 mL/min/1.73 m2 Final BUN/Creatinine Ratio 04/20/2023 17.5 10.0 - 20.0 Final Total Protein 04/20/2023 6.9 6.0 - 8.0 g/dL Final Albumin 04/20/2023 4.1 3.2 - 5.2 g/dL Final Calcium 04/20/2023 9.3 8.4 - 10.2 mg/dL Final Alkaline Phosphatase 04/20/2023 134 40 - 140 U/L Final AST 04/20/2023 26 0 - 45 U/L Final ALT 04/20/2023 39 0 - 40 U/L Final Total Bilirubin 04/20/2023 0.2 0.0 - 1.3 mg/dL Final Vit D, 25-Hydroxy 04/20/2023 42 30 - 100 ng/mL Final WBC 04/20/2023 11.54 (H) 4.50 - 11.00 K/mcL Final RBC 04/20/2023 4.77 4.00 - 5.20 M/mcL Final Hemoglobin 04/20/2023 12.9 12.0 - 16.0 g/dL Final Hematocrit 04/20/2023 39.4 36.0 - 46.0 % Final MCV 04/20/2023 82.6 80.0 - 100.0 fL Final MCH 04/20/2023 27.0 26.0 - 34.0 pg Final MCHC 04/20/2023 32.7 31.0 - 37.0 g/dL Final Platelets 04/20/2023 272 150 - 400 K/mcL Final RDW - CV 04/20/2023 15.1 (H) 11.6 - 14.8 % Final MPV 04/20/2023 8.6 (L) 9.4 - 12.4 fL Final Neutrophils 04/20/2023 30.0 % Final Lymphocytes 04/20/2023 61.7 % Final Monocytes 04/20/2023 5.5 % Final Eosinophils 04/20/2023 1.9 % Final Basophils 04/20/2023 0.4 % Final IG Percent 04/20/2023 0.50 % Final Neutrophils Abs 04/20/2023 3.46 1.70 - 7.00 K/mcL Final Lymphocytes Abs 04/20/2023 7.12 (H) 0.90 - 4.00 K/mcL Final Monocytes Abs 04/20/2023 0.63 0.30 - 0.90 K/mcL Final Eosinophils Abs 04/20/2023 0.22 0.00 - 0.50 K/mcL Final Basophils Abs 04/20/2023 0.05 0.00 - 0.30 K/mcL Final IG Absolute 04/20/2023 0.06 0.00 - 0.30 K/mcL Final Nucleated RBC 04/20/2023 0.7 % Final Nucleated RBC Abs 04/20/2023 0.08 (H) 0.00 - 0.00 K/mcL Final ] documented in this encounter [facility] 10-12-2023 Instructions Bri Kraft MD - 10/12/2023 11:56 AM EST Images from the original note were not included. I recommend continuing neuro-immunologic DMT with Amber (natalizumab) I recommend checking the following labs/tests for her neurologic therapy Lab (for natalizumab): quarterly KATIE virus Ab, CBC, liver enzymes Octave (MS disease state labs) I recommend MR brain and cervical spine w/o contrast due in 6 month(s) For symptom management, I recommend the following plan: - that we continue current symptomatic medications without change. We recommend a regular exercise program. We recommend that taking 2000 iu of rrtu-lqj-[id number] vitamin D3 daily. and We will check a viamin D level. Our goal level is between 50-100. . I recommend making the following referrals: Physical therapy for balance Smoking and second hand smoke lead to worsening of your health. If you are smoking, we recommend choosing a quit date. Once you have chosen a quit date, we will discuss medication and alternative therapies to help you quit. Furthermore, I recommend she contact 1800-QUIT NOW for free assistance with smoking cessation counseling and nicotine replacement therapy if needed. PLAN REGARDING MANAGMENT OF FUTURE MS RELAPSES We discussed the concept of an MS relapse and our center's approach to managing MS relapses today. We discussed the concept of a pseudo-MS relapse where MS patients will often experience a transient worsening of baseline neurological symptoms in the setting of fever, infection, and severe psycho-social stressors. We recommend that Odessa Ireland contact our office in the event of any new or worsening neurological symptoms lasting longer than two days. PLAN REGARDING DISEASE MODIFYING THERAPY We discussed the natural history of relapsing remitting multiple sclerosis and the realistic goals of disease modifying therapies (DMT) to decrease the frequency and severity of MS attacks and decrease neurological worsening. We shared our belief that consistent DMT use in relapsing forms of multiple sclerosis is one of the most important tools we use to improve outcomes. We stress the importance of DMT adherence and the need for constant open communication between the patient and care team. We briefly eviewed relevant mechanism of action, efficacy, safety and tolerability of several multiple sclerosis DMTs based on both clinical trial data and our MS centers experience. We also briefly discussed clinical trials for relapsing remitting multiple sclerosis at [facility]. For more information about our clinical trial opportunities please contact your MS provider. Odessa Ireland's neurological functioning and her response to DMT will assessed through several lines of evidence collected before each clinic visit. This includes her responses to MS symptoms specific questionnaires and her performance on MS specific clinical tests of vision, thinking, hand function and walking speed. Our center requires Odessa Ireland to always arrive at least 30 minutes before each clinic appointment to allow time for these tests. Response to disease modifying therapy will also be assessed through MRI scans of the brain and sometimes the spinal cord. This is needed to identify sub-clinical disease activity and her response to her disease modifying therapy. Optical Coherence Tomography (OCT), which measures the retinal nerve fiber layer (RNFL) of the eye, is another complementary way to measure MS disease activity. PLAN RELATED TO CLINIC FOLLOW UP 1. I will schedule a follow-up visit in No follow-ups on file. . 2. Please arrive 30 minutes before your appointment to allow time to complete paperwork and MS specific testing prior to seeing your MS specialist. If you arrive late you may not be able to be seen that day and may need to reschedule your visit. 3. Please sign up for the e-volo patient portal. Ricebook gives you controlled access to the same Epic medical records your [facility] MS care team use, via browser or mobile justin (for iOS and Android). Its allows you to review some of your testing results, and provides you with a communication link to your care providers. 4. Many of your test results can be reviewed online at any time through Ricebook. Your MS care team will review all results, but will only contact you if a finding requires urgent medical attention. Your MS Care team will always discuss your test results with you [id number] at your next clinic. PATIENT AND CAREGIVER EDUCATION 1. People with MS who smoke tend to have a faster progression of disease compared to those that do not. Also, people with clinically isolated syndrome who smoke are at risker to convert to MS compared to non-smokers. 2. We recommend that all MS patient participate in regular exercise, to the extent that they are able. Swimming, water aerobics and yoga are excellent considerations. 3. A healthy diet is beneficial in MS. We recommend the following: A. Calorie and content (simple carbohydrates, fats) control B. Share portions C. Eat SLOWER D. Salad dressing on the side E. Watch out of alcohol calories F. Drink a glass of water before each meal 4. Low levels of vitamin D have been associated with increased MS disease activity. Higher vitamin D levels have been associated with decreased MS disease activity. Our goal vitamin D level in our MS patients is generally between 50-100. 5. Multiple Sclerosis is an independent risk factor for accelerated bone loss (osteopenia/osteoperosis) and pathologic fractures. We recommend that all people with MS over age 50 have regular bone density testing with their PCP. 6. People with MS and their family must use caution when reading anything on the Internet about MS. Information on the Internet may be inaccurate or outdated, even if it looks real . We encourage you to discuss with us information you read on the internet, to help you clarify if it is accurate and if it applies to you specifically. Below are list of links to MS educational sources online: [facility] (www.Advanced Telemetry.rumr le word: multiple sclerosis) Multiple Sclerosis Association of [place] (www.mymsaa.org) Multiple Sclerosis Foundation (www.msfocus.org) Can do Multiple Sclerosis ( www.mscando.org ) National Multiple Sclerosis Society (www.nationalmssociety.org) [facility] (www.mscenter.[facility]) Gather MS: linking people with MS to local community resources: https://www.[facility] ([facility])ms.com/ 7. For information on the [facility] [place]'s clinical trial program please talk to your MS provider. 8.Support Groups: MS Groups take place at The [facility] Education and Resource Center at [facility]: [address] [address]. Parking vouchers will be provided. All support and wellness opportunities will be offered free of charge at the [facility] Resource [facility] at [facility]. The [facility] is located in the Neuroscience [address] Pre-registration is required unless otherwise noted. Call [phone] or e-mail: [email or web address]. Call to confirm dates/times. [facility] 2020 MS Educational Series Presentations by Drs. Nguyen Lynn, Isael Randall, Bri Kraft, Shar Kraft and other MS team members. All presentations: Wednesday of the month October through June (May is Wednesday due to holiday) from 6-7 PM (immediately following the Life with MS support group meeting). Light refreshments will be served. Caregiver/General Manager Food Support Group: offers opportunities to connect with others, receive education and support, as well as learn about community resources. Meets of each month 2-3 pm or 6-7pm. Art Therapy: designed to provide a means to help you relax through creative activities, as well as express and explore your emotions and concerns. Led by a Registered Art Therapist. Meets Wednesday of each month: 11am-12:30p and Wednesday of each month: 6pm-7:30pm Music Therapy: a fun and useful tool to maximize neurological function and connect mind, body and spirit. Led by a Board Certified Neurologic Music Therapist. Meets and of each month: 1pm-2pm and Wednesday: 6:30-7:30pm Neuro Choir: Singing benefits your health, recovery and well-being. The choir is led by a Board Certified Neurologic Music Therapist. Meets : 2pm-3pm and Wednesday of each month: 6:30-7:30pm Neuro Yoga: learn and enhance your yoga skills. Opportunities include: caregiver class, 6 week intro series, chair yoga, and a class for experienced yoga practitioners. Call for schedule. Behavioral Health Support Group: For adult friends/family members of adults with mental illness. Receive support, share challenges, and learn about resources. Every Wednesday: 4:30pm-5:30pm. Registration not needed. For more information on the [facility] [place] patient and family support groups and [facility] patient programs please call [phone] or email [email or web address] 10. We believe that consistent disease modifying therapy adherence is one of the most important tools to combat relapsing remitting multiple sclerosis We also believe in the need for constant open communication between the patient and care team about disease modifying therapy tolerance. 11. Education regarding disease modifying therapy discussed today: Education regarding NATALIZUMAB (Tysabri) Education regarding NATALIZUMAB (Tysabri), disease modifying therapy administered as an IV infusion once every 28 days or 42 days after 6 months. Mechanism of Action: Natalizumab is a monoclonal antibody against VLA4 that prevents immune cells from leaving the blood stream to enter into the brain (causing inflammatory damage in the setting of MS). Efficacy Data: Efficacy data is derived from the AFFIRM and SENTINEL trials, the terminal clerk follow up studies, and our own clinical experience using natalizumab in our patients since 2003. Relapses: In the AFFIRM trial, natalizumab (ARR 0.22) decreased relapse rates by 68% compared to placebo (ARR 0.67). Disability: Compared to placebo, NTZ lowed risk of 3 month confirmed disability progression by 42% and reduced flynn+ enhancing lesions by 92%. ANTHONY: In post hoc analysis of the AFFIRM trial, ANTHONY (no evidence of disease activity: no attacks, no 3 month confirmed disability progression on EDSS, no new / enlarged T2 lesions and no new flynn+ enhancing lesions for 24 months) was achieved in 37% of natalizumab treated patients, compared to 7% of placebo patients. In aggressive patients (2+ attacks and 1+ flynn lesion in year prior to trial) 27% of natalizumab treated patients vs. 3% of placebo patients achieved ANTHONY. CDI: Confirmed disability improvements (CDI) was seen in 30% with NTZ vs 19% with placebo. TYSABRI ASSOCIATED PML RISK 1. Risks of Tysabri include a potentially fatal infection called progressive multifocal leukoencephalopathy (PML) that is caused by the re-activation of the KATIE virus. Roughly 20% of the cases were fatal. Many of the surviving patients suffered neurological deficits with only ~20% able to return to work after treatment. We can determine if you have been previously exposed to the JCV through the JCV antibody test. 2. Risk factors for tysabri related PML include JCV antibody positive status, prior immunosuppressive therapies, and number of months on tysabri. Understanding risk of tysabri related PML risk is calculated in the following manner: JCV ANTIBODY NEGATIVE patients have never been exposed to the JCV and carry a risk of PML is <0.09/999. The risk to convert from JCV antibody negative to JCV antibody positive is roughly ~5-7% each year. We monitor for seroconversion with JCV antibody testing every 3 months. JCV ANTIBODY POSITIVE and have had prior immunosuppressive therapy, are in a higher PML risk category. Risk of PML is as follows: Natalizumab Exposure (months) Risk per 1000 Risk as % 1-24 2 0.2 25-48 11 1.1 49-72 9 0.9 JCV antibody positive and HAVE NOT HAD prior immunosuppression, risk of PML is further refined depending on the Optic Density (OD). Considering Optic Density (OD), percentage risk of PML is as follows: Index <0.9 >0.9 <1.5 >1.5 1- 12mo 0.001 0.01 0.02 13-24mo 0.005 0.03 0.09 25-36mo 0.02 0.08 0.26 37-48mo 0.04 0.2 0.68 49-60mo 0.05 0.24 0.79 61-72mo 0.06 0.3 1.0 3. In JCV antibody positive patients, we often obtain more frequent MRI scans to screen for asymptomatic PML lesions. MRIs may occur twice to four times annually per clinician/patient preference. 4. If symptoms of PML or concerning MRI changes are found, we will stop natalizumab and obtain CSF (spinal fluid) for JCV PCR testing, and possibly obtain further MRI scans. If we are concerned for PML we will recommend inpatient hospital admission for 7 total plasma exchanges (done every other day) and high dose steroids to help stave off IRIS. Sincerely, Bri Kraft MD @DATE@ documented in this encounter [facility] 09-30-2023 History of Present illness Narrative Patient is here for Tysabri infusion as scheduled. Completed the Tysabri questionnaire and patient denies any issues. Port accessed under sterile procedure with brisk blood return verified. Line flushes with ease. NS started at KVO. Tysabri infused over 1 hour with 1 hour post observation. Upon completion, port flushed, heparinized, site de-accessed and covered with band aid. Tolerated her infusion well. Treatment calendar provided. Patient discharged in stable condition to private vehicle. documented in this encounter [facility] 09-14-2023 Telephone encounter Note Patient is requesting a prescription be sent to [facility] for her infustion on the . Last infusion was 08/19/2023. Last JCV 04/20/23 0.07 negative. Last office visit 04/20/23. Next appt 10/12/23. Medication pending review. Thank you. [facility] 09-14-2023 Miscellaneous Notes Patient is requesting a prescription be sent to [facility] for her infustion on the . Last infusion was 08/19/2023. Last JCV 04/20/23 0.07 negative. Last office visit 04/20/23. Next appt 10/12/23. Medication pending review. Thank you. documented in this encounter [facility] 04-20-2023 History of Present illness Narrative Pt seen today in MS clinic for therapy screen. Limitations in gross functional mobility: impaired balance, difficulty walking, motor fatigue. R knee rosalinda and she falls with fatigue - can sometimes catch herself with cane and brace herself. Other times her R foot catches behind her and she strips and cannot react, cane does not help. Device/Equipment: cane, rollator in community (has tamara FWW but does not fit in home, rollator does not fit either) Falls in past 6 months: every other day Fatigue: yes Functional Mobility Assessment: slight R knee buckling, use of SPC on L, appropriate sequencing. Therapy needs identified: none Discussed use of tripod rollator in home (smaller to fit in between furniture and hallways. Patient agreeable and therapist provided with hard copy of DME script. Discussed 5 year rule for mobility aids and pt verbalizes understanding standing that her Part C benefit gives her a $500 allowance/year on devices. Education provided: Quality of movement, Home Safety, and Adaptive/Assistive equipment No charge for PT screen this date. Will continue to follow at MS clinic and assess for PT related needs. [facility] Follow Up Note 04/20/2023 IMPRESSION: 1. Relapse remitting multiple sclerosis 2. Gait disorder 3. Seizure disorder 4. Chronic fatigue 5. Cognitive complaints 6. Headaches 7. Mood disorder 8. Vitamin D deficiency Odessa Ireland is a 42 y.o. female with a past medical history of relapsing remitting multiple sclerosis who is presenting today as a follow-up. Multiple sclerosis In regards to the patient's diagnosis, the patient has active relapsing remitting multiple sclerosis. The patient seems to be tolerating Tysabri well. Consequently, we will plan to continue the patient on Tysabri as long as she does not develop a JCV index greater than 0.9, breakthrough disease, recurrent infections, opportunistic infections, or other troublesome side effects. We spent time reviewing the risks, side effects, and benefits of Tysabri. While on Tysabri, the patient needs to get a JCV index every 3 months. The patient should also get a CBC and LFT checked annually. The patient will be next due for an MRI of her brain without contrast in April 2024. If the patient ever broke through on Tysabri, then I would favor escalating her to ocrelizumab. However, it may be reasonable to consider escalation to Lemtrada depending on how badly she broke through. If the patient became intolerant of Tysabri, then I will consider ozanimod, ocrelizumab, Mavenclad, or ofatumumab. We will check an Octave today Gait disorder In regards to the patient's gait disorder, it is difficult to tell how impaired her gait is due to functional overlays. I feel that the patient needs to get physical therapy. I feel that she benefit from a better cane to use in her house at the very least. Given that the patient has a history of seizures, she is not a candidate for Ampyra. Seizure disorder In regards the patient's seizure disorder, I agree with the patient's management of her seizures. We will continue her on her seizure medications until she finds a new local neurologist. Chronic fatigue In regards to the patient's chronic fatigue, I feel that Provigil is a reasonable option in her. She lost her current neurologist. Therefore, I will refill the script until she finds a new local neurologist. Cognitive complaints In regards to the patient's cognitive complaints, I feel that they are more likely due to polypharmacy, multiple sclerosis, and her mood disorder. I do not see a role for Aricept in the treatment of this patient. I encourage her to wean off. Headaches In regards to her headaches, they seem to be under decent control with amitriptyline 50 mg by mouth at bedtime and Imitrex. Mood disorder In regards to the patient's mood disorder, I have concerns that several of the medication that she is on may be impacting her memory. If possible, I would recommend minimizing her Ativan. If she is on less Ativan, then she may require less stimulants. I will defer this management to her psychiatrist. Vitamin D deficiency In regards to the patient's vitamin D deficiency, we will continue the patient on 2000 units of vitamin D3 once daily. We will check a vitamin D level today. We will make adjustments to her supplementation as needed. Follow-up At the patient's next visit, which should be 3 months from today, we should monitor the patient for any evidence of disease activity. We should ensure that natalizumab is still a safe and effective treatment in her. We should ensure that she is getting the required lab work to safely infuse this drug. We should monitor her gait issues and ensure that she is following with therapy. We should also ensure that the patient I has established with a new local neurologist in order to manage her seizure disorder. I instructed the patient to call my office with any questions, concerns, issues or problems. I also counseled the patient if she is suffering a medical emergency to not call my office but either call 911 or go immediately to the emergency department. I recommend the following plan: PLAN: I recommend continuing neuro-immunologic DMT with Amber (natalizumab) I recommend checking the following labs/tests for her neurologic therapy Lab (for natalizumab): quarterly KATIE virus Ab, CBC, liver enzymes Octave (MS disease state labs) I recommend MR head w/o contrast due in 12 month(s) For symptom management, I recommend the following plan: - that we continue current symptomatic medications without change. We recommend a regular exercise program. We recommend that taking 2000 iu of vpcx-lep-tcynfje vitamin D3 daily. and We will check a viamin D level. Our goal level is between 50-100. . I recommend making the following referrals: Physical therapy for balance Smoking and second hand smoke lead to worsening of your health. If you are smoking, we recommend choosing a quit date. Once you have chosen a quit date, we will discuss medication and alternative therapies to help you quit. Furthermore, I recommend she contact 1800QUIT NOW for free assistance with smoking cessation counseling and nicotine replacement therapy if needed. No follow-ups on file. If new questions or concerns arise prior to your next visit, please call our office for urgent concerns (emergency room) or for new symptoms lasting > 24 hours or send a Andera message for non-urgent concerns as you may need to be seen earlier. ADDITIONAL PATIENT INFORMATION Total Time Spent: On the date of this encounter, I spent a total of at least 40 minutes on the encounter, including pre-visit work, intra-visit work, post-visit work and associated documentation. Bri Kraft MD Voice recognition technology was used to aid in the documentation of this medical record. Some words may not be printed exactly as they were spoken. While efforts were made to carefully edit and correct any inaccuracies, some typographical errors may be present. The provider or the clinic can be contacted if corrections are needed. Review of Neuroimmunological Disease Primary Neurological Diagnosis: RRMS Date of Symptom Onset: 03/06/15 Year of diagnosis: 2014 Relapse History 2014 Optic neuritis Most Recent EDSS: Year of insidious progression: Time on DMT Month Year Month Year Multiple-Sclerosis -Disease-Modifying Therapies natalizumab dimethyl fumarate Start: 2020 Stop: 2020 Multiple-Sclerosis - Disease-Modifying Therapies natalizumab dimethyl fumarate Most Recent MRI Brain: 05/04/22 Most Recent MRI Cervical Spine: 10/28/21 Most Recent MRI Thoracic Spine: 10/28/21 MRI Changes 2021 2021 2021 2021 2020 2020 2019 2018 2018 brain brain cervical spine thoracic spine brain brain brain brain cervical spine Number of New lesions: 0 1 0 0 0 0 0 0 Most Recent OCT: CSF Studies: 2018 2014 OCB: unknown yes Other Testing: Ethnicity: Dominant Hand: Highest Level of education (in years): Chief Complaint: Neurology Follow Up Visit from 10/19/22 INTERIM HISTORY Life changes: No Medical history/non-neurologic medication changes: Yes, she got a port for her infusions. She was diagnosed with peripheral neuropathy. She had EMG which was diagnostic. Since last visit, she is still having falling. She reports that she she has issues with leg. She reports that physical therapy. She reports that she is still therapy. She reports that she is doing it every day. She reports that her leg gives out from underneath her. sHe will drag her foot. She was instructed to fall safely. She reports that she is falling once every other day. She reports that she is having issue wit cane. She reports that She reports that her headaches are getting worse. She reports that notes that it worse when her sugars are high. She just recently started metformin. She reports that it is a couple times per week. She reports that her headaches rarely require imatrex. She reports that it is pounding in quality and still sentiviety ot light Energy levels are generally poor . She reports that her Provigil script ran out. Sshe is sleeping okay. She reports that she leaving. He reports that she is instrusting. She has not had a sleep clinic She reports that her racing mind can help her fall asleep. Mood is fair / acceptable. She still has anxiety and depression. She feels it is well controlled. Cognition is poor . She has occasionally word finding. She needs a lot of reminders. She reports that she is more forgetful Bladder is good. She is on mcc disability She is involved in regular exercise / physical conditioning. She reports that she is doing chair yoga and a peddle thing. She is currently supplementing vitamin D3. She is not using tobacco. Symptom Inventory: Review of systems performed by the ENDBANDER/RN/medical intern, personally reviewed and viewable in the current patient encounter. Multiple Sclerosis Center ROS No documentation. 14 systems reviewed and negative except for as noted above. Past Medical History: Diagnosis Date Anxiety Fatty liver GERD (gastroesophageal reflux disease) Multiple sclerosis (HCC) Neuropathic pain Pseudoseizure PTSD (post-traumatic stress disorder) Past Surgical History: Procedure Laterality Date SECTION, LOW TRANSVERSE CHOLECYSTECTOMY CV IR INTERVENTIONAL RADIOLOGY N/A 10/26/2022 Procedure: IR PORT IMPLANT CHEST; Surgeon: Blanco Enrique CNP; [facility]; Service: Interventional Radiology HYSTERECTOMY OOPHORECTOMY TONSILLECTOMY TUBAL LIGATION Social History Tobacco Use Smoking status: Never Smokeless tobacco: Never Vaping Use Vaping Use: Never used Substance Use Topics Alcohol use: Yes Comment: rarely, Drug use: Never Family History Problem Relation Age of Onset Ovarian cancer Mother Heart disease Mother Diabetes Mother Depression Mother Cancer Father Heart disease Father Hypertension Father Migraines Father Stroke Father Post-traumatic stress disorder Father Hypertension Brother Breast cancer Maternal Aunt Colon cancer Maternal Uncle Lupus Paternal Aunt Dementia Maternal Grandmother Memory loss Maternal Grandmother Dementia Paternal Grandmother Memory loss Paternal Grandmother Lung cancer Other Lupus Paternal Aunt Bone cancer Maternal Aunt Seizures Neg Hx Multiple sclerosis Neg Hx Allergies Allergen Reactions Codeine Other (See Comments) Confusion, tried to jump out of a window GENERAL PHYSICAL EXAMINATION Vital Signs: not currently . General Appearance: in no apparent distress, well nourished, conversant, cooperative Eyes: Anicteric sclerae. Moist conjunctivae. No lid edema noted. HENT: Head atraumatic, normocephalic. Oropharynx clear. Moist mucous membranes. Neck/ Thyroid:trachea midline. Supple. No massess. No thyromegaly. CV: RRR, , no murmurs, rubs, clicks, or gallops, Palpable pulses throughout and no lower extremity edema Lungs: Normal respiratory effort. No intercostal retractions. No dyspnea during conversation. Abdomen: soft, non-distended Extremities: no clubbing, cyanosis, pedal edema, ulcer nor wound noted. Skin: warm, dry, no rash, no ecchymoses, no petechiae noted Pysch: normal mood, behavior, speech, dress, and thought processes NEUROLOGIC EXAMINATION MENTAL STATUS: intact to casual conversation. Normal language function regarding fluency and comprehension. Normal mood and affect. CRANIAL NERVES: CN II: Visual tamayo full to confrontation CN III, IV, : Eyes are aligned in primary gaze. Extra ocular movements intact without nystagmus. Normal convergence. No GEOFF noted. No ptosis noted. CN V, VII: Sensation and strength are intact and symmetric. CN VIII: Hearing intact to finger rub bilaterally CN IX, X: Palate elevated symmetrically. No dysarthria noted. CN XI: Sternocleidomastoid and trapezius strength is full bilaterally. CN XII: The tongue protrudes in the midline. No fasciculation or atrophy appreciated. PYRAMIDAL: Pronator drift noted on the right , Satelliting not noted., poor effort Manual Muscle Testing: D B T WE FF IO HF KF KE DF PF Right 4 5 5 4 5 4 4 w/ patrick sign 4 5 3 3 Left 5 5 5 5 5 5 5 5 5 5 5 Modified Michael Score: B T Hip add KF KE DF PF Right 0 0 0 0 0 Left 0 0 0 0 0 SENSORY:light touch decreased in right side and temperature decreased in right side COORDINATION: Normal smooth eye pursuits, no saccadic intrusions noted. No truncal ataxia noted with sitting. Normal [id number], fine finger, and eaon-ir-ntzp movements without evidence of appendicular dysmetria nor ataxia. No tremors or abnormal movements noted. GAIT: Description: hesitant, Stand from seated position: requires multiple attempts, Station: narrow based, Immediate Standing Balance: stable, Romberg Testing: stable with eyes open, but sways with eyes closed, Stride length:normal, Arm Swing: normal, Knee swing: normal , Heel Strike: normal, Turn: normal, Toe Walking: impaired bilaterally , Heel Walking: normal, Tanden Walking: mildly impaired DIAGNOSTIC TESTING MRI Brain (I have independently reviewed the following images): Study Date: 04/20/23. Comparison Study Date: 05/06/22. Study Location:[facility], [place] protocol used: yes. Scanner Strength: 3T, Slice and Gap thickness: 1 mm voxel and NO gap, Image Quality: excellent. Findings: T2 bright lesion burden of disease: moderate Periventricular T2 bright lesions: . yes Juxtacortical T2 bright lesions:yes CC T2 bright lesions: yes Infratentorial lesions: yes T1 black holes:yes T1 flynn enhancing lesions: NA Visual assessment of atrophy: mild Findings vs. comparision study: New/Enlarged T2 bright lesions: no New T1 flynn+ lesions: no New T1 black holes: no Visual assessment of atrophy: unchanged MRI brain Impression: stable study Neuroradiologist Impression: pending LABS Abstract on 10/29/2022 Component Date Value Ref Range Status JCV Ab by Inhibition Interpretation 10/19/2022 Negative Negative Final Stratify JCV Ab (with Index) w/RFL* 10/19/2022 0.11 Final JCV Antibody 10/19/2022 Negative Negative, Indeterminate Final Admission on 10/26/2022, Discharged on 10/26/2022 Component Date Value Ref Range Status Protime (PT) 10/26/2022 13.0 11.8 - 14.3 seconds Final INR 10/26/2022 1.0 0.8 - 1.1 Final WBC 10/26/2022 11.43 (H) 4.50 - 11.00 K/mcL Final RBC 10/26/2022 4.97 4.00 - 5.20 M/mcL Final Hemoglobin 10/26/2022 13.5 12.0 - 16.0 g/dL Final Hematocrit 10/26/2022 41.2 36.0 - 46.0 % Final MCV 10/26/2022 82.9 80.0 - 100.0 fL Final MCH 10/26/2022 27.2 26.0 - 34.0 pg Final MCHC 10/26/2022 32.8 31.0 - 37.0 g/dL Final Platelets 10/26/2022 275 150 - 400 K/mcL Final RDW - CV 10/26/2022 15.5 (H) 11.6 - 14.8 % Final MPV 10/26/2022 8.5 (L) 9.4 - 12.4 fL Final Neutrophils 10/26/2022 29.1 % Final Lymphocytes 10/26/2022 61.9 % Final Monocytes 10/26/2022 6.0 % Final Eosinophils 10/26/2022 2.1 % Final Basophils 10/26/2022 0.4 % Final IG Percent 10/26/2022 0.50 % Final Neutrophils Abs 10/26/2022 3.31 1.70 - 7.00 K/mcL Final Lymphocytes Abs 10/26/2022 7.08 (H) 0.90 - 4.00 K/mcL Final Monocytes Abs 10/26/2022 0.69 0.30 - 0.90 K/mcL Final Eosinophils Abs 10/26/2022 0.24 0.00 - 0.50 K/mcL Final Basophils Abs 10/26/2022 0.05 0.00 - 0.30 K/mcL Final IG Absolute 10/26/2022 0.06 0.00 - 0.30 K/mcL Final Nucleated RBC 10/26/2022 0.3 % Final Nucleated RBC Abs 10/26/2022 0.04 (H) 0.00 - 0.00 K/mcL Final ] documented in this encounter [facility] 04-20-2023 Instructions Bri Kraft MD - 04/20/2023 9:46 AM EDT Images from the original note were not included. I recommend continuing neuro-immunologic DMT with Amber (natalizumab) I recommend checking the following labs/tests for her neurologic therapy Lab (for natalizumab): quarterly KATIE virus Ab, CBC, liver enzymes Octave (MS disease state labs) I recommend MR head w/o contrast due in 12 month(s) For symptom management, I recommend the following plan: - that we continue current symptomatic medications without change. We recommend a regular exercise program. We recommend that taking 2000 iu of aiwy-inw-[id number] vitamin D3 daily. and We will check a viamin D level. Our goal level is between 50-100. . I recommend making the following referrals: Physical therapy for balance Smoking and second hand smoke lead to worsening of your health. If you are smoking, we recommend choosing a quit date. Once you have chosen a quit date, we will discuss medication and alternative therapies to help you quit. Furthermore, I recommend she contact 1800-QUIT NOW for free assistance with smoking cessation counseling and nicotine replacement therapy if needed. PLAN REGARDING MANAGMENT OF FUTURE MS RELAPSES We discussed the concept of an MS relapse and our center's approach to managing MS relapses today. We discussed the concept of a pseudo-MS relapse where MS patients will often experience a transient worsening of baseline neurological symptoms in the setting of fever, infection, and severe psycho-social stressors. We recommend that Odessa Ireland contact our office in the event of any new or worsening neurological symptoms lasting longer than two days. PLAN REGARDING DISEASE MODIFYING THERAPY We discussed the natural history of relapsing remitting multiple sclerosis and the realistic goals of disease modifying therapies (DMT) to decrease the frequency and severity of MS attacks and decrease neurological worsening. We shared our belief that consistent DMT use in relapsing forms of multiple sclerosis is one of the most important tools we use to improve outcomes. We stress the importance of DMT adherence and the need for constant open communication between the patient and care team. We briefly eviewed relevant mechanism of action, efficacy, safety and tolerability of several multiple sclerosis DMTs based on both clinical trial data and our MS centers experience. We also briefly discussed clinical trials for relapsing remitting multiple sclerosis at [facility]. For more information about our clinical trial opportunities please contact your MS provider. Odessa Ireland's neurological functioning and her response to DMT will assessed through several lines of evidence collected before each clinic visit. This includes her responses to MS symptoms specific questionnaires and her performance on MS specific clinical tests of vision, thinking, hand function and walking speed. Our center requires Odessa Ireland to always arrive at least 30 minutes before each clinic appointment to allow time for these tests. Response to disease modifying therapy will also be assessed through MRI scans of the brain and sometimes the spinal cord. This is needed to identify sub-clinical disease activity and her response to her disease modifying therapy. Optical Coherence Tomography (OCT), which measures the retinal nerve fiber layer (RNFL) of the eye, is another complementary way to measure MS disease activity. PLAN RELATED TO CLINIC FOLLOW UP 1. I will schedule a follow-up visit in No follow-ups on file. . 2. Please arrive 30 minutes before your appointment to allow time to complete paperwork and MS specific testing prior to seeing your MS specialist. If you arrive late you may not be able to be seen that day and may need to reschedule your visit. 3. Please sign up for the e-volo patient portal. Ricebook gives you controlled access to the same Epic medical records your [facility] MS care team use, via browser or mobile justin (for iOS and Android). Its allows you to review some of your testing results, and provides you with a communication link to your care providers. 4. Many of your test results can be reviewed online at any time through Ricebook. Your MS care team will review all results, but will only contact you if a finding requires urgent medical attention. Your MS Care team will always discuss your test results with you [id number] at your next clinic. PATIENT AND CAREGIVER EDUCATION 1. People with MS who smoke tend to have a faster progression of disease compared to those that do not. Also, people with clinically isolated syndrome who smoke are at risker to convert to MS compared to non-smokers. 2. We recommend that all MS patient participate in regular exercise, to the extent that they are able. Swimming, water aerobics and yoga are excellent considerations. 3. A healthy diet is beneficial in MS. We recommend the following: A. Calorie and content (simple carbohydrates, fats) control B. Share portions C. Eat SLOWER D. Salad dressing on the side E. Watch out of alcohol calories F. Drink a glass of water before each meal 4. Low levels of vitamin D have been associated with increased MS disease activity. Higher vitamin D levels have been associated with decreased MS disease activity. Our goal vitamin D level in our MS patients is generally between 50-100. 5. Multiple Sclerosis is an independent risk factor for accelerated bone loss (osteopenia/osteoperosis) and pathologic fractures. We recommend that all people with MS over age 50 have regular bone density testing with their PCP. 6. People with MS and their family must use caution when reading anything on the Internet about MS. Information on the Internet may be inaccurate or outdated, even if it looks real . We encourage you to discuss with us information you read on the internet, to help you clarify if it is accurate and if it applies to you specifically. Below are list of links to MS educational sources online: [facility] (www.Advanced [employer].rumr le word: multiple sclerosis) Multiple Sclerosis Association of [place] (www.mymsaa.org) Multiple Sclerosis Foundation (www.msfocus.org) Can do Multiple Sclerosis ( www.mscando.org ) National Multiple Sclerosis Society (www.nationalmssociety.org) [facility] (www.mscenter.[facility]) Gather MS: linking people with MS to local community resources: https://www.gatherms.com/ 7. For information on the [facility]'s clinical trial program please talk to your MS provider. 8.Support Groups: MS Groups take place at The [facility] Resource [facility] at [facility]: [address] [place] [address]. Parking vouchers will be provided. All support and wellness opportunities will be offered free of charge at the [facility] at [facility]. The [facility] is located in the [address] Pre-registration is required unless otherwise noted. Call [phone] or e-mail: [email or web address]. Call to confirm dates/times. [facility] 2020 MS Educational Series Presentations by Drs. Nguyen yLnn, Isael Randall, Bri Kraft, Shar Kraft and other MS team members. All presentations: Wednesday of the month October through June (May is Wednesday due to holiday) from 6-7 PM (immediately following the Life with MS support group meeting). Light refreshments will be served. Caregiver/General Manager Food Support Group: offers opportunities to connect with others, receive education and support, as well as learn about community resources. Meets of each month 2-3 pm or 6-7pm. Art Therapy: designed to provide a means to help you relax through creative activities, as well as express and explore your emotions and concerns. Led by a Registered Art Therapist. Meets Wednesday of each month: 11am-12:30p and Wednesday of each month: 6pm-7:30pm Music Therapy: a fun and useful tool to maximize neurological function and connect mind, body and spirit. Led by a Board Certified Neurologic Music Therapist. Meets and of each month: 1pm-2pm and Wednesday: 6:30-7:30pm Neuro Choir: Singing benefits your health, recovery and well-being. The choir is led by a Board Certified Neurologic Music Therapist. Meets : 2pm-3pm and Wednesday of each month: 6:30-7:30pm Neuro Yoga: learn and enhance your yoga skills. Opportunities include: caregiver class, 6 week intro series, chair yoga, and a class for experienced yoga practitioners. Call for schedule. Behavioral Health Support Group: For adult friends/family members of adults with mental illness. Receive support, share challenges, and learn about resources. Every Wednesday: 4:30pm-5:30pm. Registration not needed. For more information on the [facility] patient and family support groups and [facility] patient programs please call [phone] or email [email or web address] 10. We believe that consistent disease modifying therapy adherence is one of the most important tools to combat relapsing remitting multiple sclerosis We also believe in the need for constant open communication between the patient and care team about disease modifying therapy tolerance. 11. Education regarding disease modifying therapy discussed today: Education regarding NATALIZUMAB (Tysabri) Education regarding NATALIZUMAB (Tysabri), disease modifying therapy administered as an IV infusion once every 28 days or 42 days after 6 months. Mechanism of Action: Natalizumab is a monoclonal antibody against VLA4 that prevents immune cells from leaving the blood stream to enter into the brain (causing inflammatory damage in the setting of MS). Efficacy Data: Efficacy data is derived from the AFFIRM and SENTINEL trials, the mcc follow up studies, and our own clinical experience using natalizumab in our patients since 2003. Relapses: In the AFFIRM trial, natalizumab (ARR 0.22) decreased relapse rates by 68% compared to placebo (ARR 0.67). Disability: Compared to placebo, NTZ lowed risk of 3 month confirmed disability progression by 42% and reduced flynn+ enhancing lesions by 92%. ANTHONY: In post hoc analysis of the AFFIRM trial, ANTHONY (no evidence of disease activity: no attacks, no 3 month confirmed disability progression on EDSS, no new / enlarged T2 lesions and no new flynn+ enhancing lesions for 24 months) was achieved in 37% of natalizumab treated patients, compared to 7% of placebo patients. In aggressive patients (2+ attacks and 1+ flynn lesion in year prior to trial) 27% of natalizumab treated patients vs. 3% of placebo patients achieved ANTHONY. CDI: Confirmed disability improvements (CDI) was seen in 30% with NTZ vs 19% with placebo. TYSABRI ASSOCIATED PML RISK 1. Risks of Tysabri include a potentially fatal infection called progressive multifocal leukoencephalopathy (PML) that is caused by the re-activation of the KATIE virus. Roughly 20% of the cases were fatal. Many of the surviving patients suffered neurological deficits with only ~20% able to return to work after treatment. We can determine if you have been previously exposed to the JCV through the JCV antibody test. 2. Risk factors for tysabri related PML include JCV antibody positive status, prior immunosuppressive therapies, and number of months on tysabri. Understanding risk of tysabri related PML risk is calculated in the following manner: JCV ANTIBODY NEGATIVE patients have never been exposed to the JCV and carry a risk of PML is <0.09/999. The risk to convert from JCV antibody negative to JCV antibody positive is roughly ~5-7% each year. We monitor for seroconversion with JCV antibody testing every 3 months. JCV ANTIBODY POSITIVE and have had prior immunosuppressive therapy, are in a higher PML risk category. Risk of PML is as follows: Natalizumab Exposure (months) Risk per 1000 Risk as % 1-24 2 0.2 25-48 11 1.1 49-72 9 0.9 JCV antibody positive and HAVE NOT HAD prior immunosuppression, risk of PML is further refined depending on the Optic Density (OD). Considering Optic Density (OD), percentage risk of PML is as follows: Index <0.9 >0.9 <1.5 >1.5 1- 12mo 0.001 0.01 0.02 13-24mo 0.005 0.03 0.09 25-36mo 0.02 0.08 0.26 37-48mo 0.04 0.2 0.68 49-60mo 0.05 0.24 0.79 61-72mo 0.06 0.3 1.0 3. In JCV antibody positive patients, we often obtain more frequent MRI scans to screen for asymptomatic PML lesions. MRIs may occur twice to four times annually per clinician/patient preference. 4. If symptoms of PML or concerning MRI changes are found, we will stop natalizumab and obtain CSF (spinal fluid) for JCV PCR testing, and possibly obtain further MRI scans. If we are concerned for PML we will recommend inpatient hospital admission for 7 total plasma exchanges (done every other day) and high dose steroids to help stave off IRIS. Sincerely, Bri Kraft MD @DATE@ documented in this encounter [facility] 10-20-2022 Note PROCEDURE(S) PERFORM ED: RIGHT INTERNAL JUGULAR VEIN CHEST POWER PORT PLACEMENT: Indication: 42 y.o. female with history of relapsing multiple sclerosis from 05/04/2022. Patient needs vascular access for her infusion therapy. TECHNIQUE: PROVIDER: Blanco Murillo M.D. (Indirect supervising) MEDICATIONS: 1. Fentanyl 100 mcg IV. 2. Versed 2 mg IV. 3. Ancef 2 gram IV. PROCEDURE: 1. ULTRASOUND FLUOROSCOPIC-GUIDED PLACEMENT OF A RIGHT INTERNAL JUGULAR VEIN POWER PORT 2. CONSCIOUS SEDATION 33 minutes. The risks, benefits, alternatives of the procedure were discussed in depth with the patient. IV conscious sedation was also identified. Signed consent was then obtained. The patient was laid supine on the angiographic table. The right neck and right upper chest were prepped and draped in sterile fashion. 2% lidocaine with epinephrine was used for local anesthesia. Using standard micropuncture technique and ultrasound, access into the right internal jugular vein was performed (a permanent sonographic imaging was obtained). A permanent sonographic image was obtained documenting needle placement within the vein. A 0.018 guidewire was inserted and a 5-Slovak dilator and sheath followed. A 7-Slovak dilator and sheath followed as a micropuncture wire was removed. Next, attention was turned to the right upper chest region. This area was anesthetized with lidocaine with epinephrine. A horizontal incision was made 2 fingerbreadths below the right clavicle. Dissection of the port pocket was performed. Flushing of the port pocket with saline was performed. The port was inserted, tunneled under the skin and inserted through the peel-away sheath. The distal tip is identified in the right atrium. The incision was closed with three 3-0 Ethilon sutures and Dermabond. This port was flushed with heparin and saline and is ready to use. Radiation dose: Ka,r mGy 3. 0.2 minutes. FINDINGS: Patent right internal jugular vein. IMPRESSION: Successful placement of a right internal jugular vein power port under ultrasound fluoroscopic guidance. This was flushed with heparin and saline and is ready to use. Workstation ID: [id number] Dictated by: BLANCO ENRIQUE on WedOct 26, 2022 12:46:27 PM EST Transcribed by: BLANCO ENRIQUE on WedOct 26, 2022 12:46:27 PM EST Finalized by: LENARD MURILLO on WedOct 31, 2022 7:02:30 PM EST [facility] 10-19-2022 History of Present illness Narrative [facility] Follow Up Note 10/19/2022 Review of Neuroimmunological Disease Primary Neurological Diagnosis: RRMS Date of Symptom Onset: 03/06/15 Year of diagnosis: 2014 Relapse History 2015 Optic neuritis Most Recent EDSS: Year of insidious progression: Time on DMT Month Year Month Year Multiple-Sclerosis -Disease-Modifying Therapies natalizumab dimethyl fumarate Start: 2020 Stop: 2020 Multiple-Sclerosis - Disease-Modifying Therapies natalizumab dimethyl fumarate Most Recent MRI Brain: 05/04/22 Most Recent MRI Cervical Spine: 10/28/21 Most Recent MRI Thoracic Spine: 10/28/21 MRI Changes 2021 2021 2021 2021 2020 2020 2019 2018 2018 brain brain cervical spine thoracic spine brain brain brain brain cervical spine Number of New lesions: 0 1 0 0 0 0 0 0 Most Recent OCT: CSF Studies: 2018 2014 OCB: unknown yes Other Testing: Ethnicity: Dominant Hand: Highest Level of education (in years): CHIEF COMPLAINT relapsing multiple sclerosis follow up from 05/04/2022 CONTEMPORARY HISTORY Odessa Ireland presents to clinic with her sister Doris for routine follow up. She states that overall her MS symptoms have been fairly well controlled and denies any new symptoms. She is requesting a new script to take to her local hospital for outpatient PT/OT. This would be helpful to address her balance concerns. She admits that she does not really use her straight cane as often and she does have falls from time to time. She sees her psychiatrist Dr. Suresh Gale consistently. Her Abilify and sertraline were both recently increased. She has follow up in a few weeks. She is working with her local neurologist in regards to headaches. Plan to work on lifestyle modifications including adequate water intake and meals. May consider an injectable preventive in the future. She is struggling with IV access. She states that the infusion RNs stick her multiple times never less than 6 times for each Tysabri infusion. She was told to bring up a port consideration. She is now taking vitamin D 10,000 I.u. daily. Odessa Ireland is tolerating her natalizumab (Tysabri) infusions. She has completed 18 total infusions to date. She is JCV Antibody negative as of 05/2022. She is due for JCV antibody testing. She is up to date with surveillance MRI studies. OTHER RELEVANT HISTORY [facility] - 10/19/22 0921 General Change in weight No Fever No Chills No Night Sweats No Cough No Shortness of Breath No Joint pain / swelling Yes Muscle pain / cramps Yes Chest pain No Palpitations No Nausea / Vomiting No Neurologic Double vision No Blurred / decreased vision No Difficulty swallowing No Difficulty with speech No Numbness / tingling Yes Painful skin sensations No Muscle weakness Yes Heat sensitivity Yes Motor fatigue Yes Incoordination/ poor balance Yes Difficulty walking Yes Recent Falls Yes L'hermitte No Difficulty with thinking and memory Yes Pathologic fatigue No Depression Yes Anxiety Yes Urinary urgency No Urinary frequency No Urinary retention / hesitancy No Recent Urinary Tract Infections No Bowel complaints No Sexual Dysfunction No Poor sleep Yes Headaches Yes Recent Seizures No 14 systems reviewed and negative except for as noted above. Past medical, surgical, social & family history reviewed in the electronic medical record. She has a past medical history of Anxiety, Fatty liver, GERD (gastroesophageal reflux disease), Multiple sclerosis (HCC), Neuropathic pain, Pseudoseizure, and PTSD (post-traumatic stress disorder). She has a past surgical history that includes section, low transverse; Tubal ligation; Cholecystectomy; Hysterectomy; Oophorectomy; and tonsillectomy. She reports that she has never smoked. She has never used smokeless tobacco. She reports current alcohol use. She reports that she does not use drugs. Her family history includes Bone cancer in her maternal aunt; Breast cancer in her maternal aunt; Cancer in her father; Colon cancer in her maternal uncle; Dementia in her maternal grandmother and paternal grandmother; Depression in her mother; Diabetes in her mother; Heart disease in her father and mother; Hypertension in her brother and father; Lung cancer in an other family member; Lupus in her paternal aunt and paternal aunt; Memory loss in her maternal grandmother and paternal grandmother; Migraines in her father; Ovarian cancer in her mother; Post-traumatic stress disorder in her father; Stroke in her father. Lion She has a current medication list which includes the following prescription(s): amitriptyline, aripiprazole, baclofen, biotin, cholecalciferol (vitamin d3), docusate sodium, donepezil, gabapentin, lactobacillus acidophilus, levetiracetam, lorazepam, modafinil, multivitamin, natalizumab, omeprazole, sertraline, sumatriptan, and promethazine. GENERAL PHYSICAL EXAMINATION Vital Signs: Blood pressure 138/86, pulse (!) 103, weight 131.4 kg (289 lb 9.6 oz), not currently . General Appearance: in no apparent distress, well nourished, conversant, cooperative Eyes: Anicteric sclerae. Moist conjunctivae. No lid edema noted. HENT: Head atraumatic, normocephalic. Oropharynx clear. Moist mucous membranes. Neck/ Thyroid:trachea midline. Supple. No massess. No thyromegaly. Lungs: Normal respiratory effort. No intercostal retractions. No dyspnea during conversation. Abdomen: soft, non-distended Extremities: no clubbing, cyanosis, pedal edema, ulcer nor wound noted. Skin: warm, dry, no rash, no ecchymoses, no petechiae noted Pysch: normal mood, behavior, speech, dress, and thought processes MULTIPLE SCLEROSIS PERFORMANCE TEST CLINICAL TESTING VALUE Binocular Visual acuity (Hi: range 13-60, median 59) (Lo: range 0-55, median 32) Low Contrast: High Contrast: Symbol Digit Modality Test (range 4-86, Median 46) Total Number Correct: 51 Nine Hole Peg Test (range 13.4-8.3; median 26.5) Left Hand Avg (seconds): 26.68 Right Hand Avg (seconds): 46.29 Dominant Hand: right Timed 25 Foot Walk (range 0.1-52.47; Median without aid 7.1) Average Trial Time (seconds): 14.82 AFO Choice: none Walking Aid Choice: cane Neurological Testing VALUE Visual acuity (2.5% low contrast) OD: 20/80 w- contacts OS: 20/60-1 w contacts 90 second Symbol Digit Modality Test Nine Hole Peg Test Right 1st: Right 2nd: Left 1st: Left 2nd: Timed 25 Foot Walk Trial 1: Trial 2: TRADITIONAL NEUROLOGICAL EXAMINATION MENTAL STATUS: 51 intact to casual conversation. Normal language function regarding fluency and comprehension. Normal mood and affect. CRANIAL NERVES: CN II: Binocular Visual Acuity: Low Contrast Score High Contrast Score . Visual tamayo full to confrontation testing. CN III, IV, : Eyes are aligned in primary gaze. Extra ocular movements intact without nystagmus. Normal convergence. No GEOFF noted. No ptosis noted. CN V, VII: Strength is intact and symmetric. Sensation is notable for reduced v1-v3 on right side with light touch but also reports more sensitivity on the right side. CN VIII: Hearing intact to finger rub bilaterally CN IX, X: Palate elevated symmetrically. No dysarthria noted. CN XI: Sternocleidomastoid and trapezius strength is full bilaterally. CN XII: The tongue protrudes in the midline. No fasciculation or atrophy appreciated. PYRAMIDAL: Nine Hole Peg Test: Dominant Hand: right Left Hand Avg time (seconds): 26.68 Right Hand Avg time (seconds): 46.29 Manual Muscle Testing: D B T WE FF IO HF KF KE DF PF Right * 5 5 * * 4* * * * * Left 5 5 5 5 5 5 5 5 5 5 Significant giveaway noted on right side, hard to fully test. SENSORY:light touch decreased in RUE and RLE COORDINATION: normal smooth eye pursuits, No truncal ataxia with sitting, standing or walking, Right finger to finger and right finger to nose movements with nonphysiologic slow movements GAIT: Timed 25 foot walk (seconds): 14.82 AFO Choice: none Walking Aid Choice: cane Uses straight cane, wide based, slightly psychogenic gait noted PARACLINICAL DATA (I have personally reviewed the images below) Over the last 2 weeks, how often have you been bothered by any of the following problems? Little interest or pleasure in doing things: More than half the days Feeling down, depressed, or hopeless: More than half the days PHQ-2 Total Score: 4 Trouble falling or staying asleep, or sleeping too much: Nearly every day Feeling tired or having little energy: Nearly every day Poor appetite or overeating: Several days Feeling bad about yourself - or that you are a failure or have let yourself or your family down: Nearly every day Trouble concentrating on things, such as reading the newspaper or watching television: More than half the days Moving or speaking so slowly that other people could have noticed. Or the opposite - being so fidgety or restless that you have been moving around a lot more than usual: Not at all Thoughts that you would be better off , or of hurting yourself in some way: Not at all PHQ-9 Total Score: 16 PHQ-9 Score Depression Severity: Proposed Treatment Actions 0-4 NONE None 5-9 MILD Watchful waiting; repeat PHQ-9 at follow-up 10-14 MODERATE Treatment plan, considering counseling, follow-up and/or pharmacotherapy 15-19 MODERATELY SEVERE Active treatment with pharmacotherapy and/or psychotherapy 20 - 27 SEVERE Immediate initiation of pharmacotherapy and, if severe impairment or poor response to therapy, expedited referral to a mental health specialist for psychotherapy and/or collaborative management Over the last 2 weeks, how often have you been bothered by the following problems? Feeling nervous, anxious or on edge: Several days Not being able to stop or control worrying: Over half the days Worrying too much about different things: Several days Trouble relaxing: Over half the days Being so restless that it is hard to sit still: Several days Becoming easily annoyed or irritable: Several days Feeling afraid as if something awful might happen: Not at all FLYNN-7 Score: 8 FLYNN-7 Anxiety Severity: Proposed Treatment Actions 0-4 NONE None 5-9 MILD Provide general feedback, repeat FLYNN-7 at follow-up, consider adjusting treatment if not improved in 4 weeks 10-14 MODERATE Further evaluation recommended; for active treatment plans consider adjustment 12-21 SEVERE Immediate initiation of pharmacotherapy and, if severe impairment or poor response to therapy, expedited referral to a mental health specialist for psychotherapy and/or collaborative management IMPRESSIONS Odessa Ireland is a pleasant 42 y.o. female with relapsing remitting multiple sclerosis who is currently on Tysabri. She is s/p 18 Tysabri infusions and is JCV antibody negative. She appears to be stable from a MS standpoint. IV access appears to be problematic, ultimately requiring at least 7 sticks for each Tysabri infusion. Discussed with Dr. Rangel Kraft and plan to proceed with port placement. We recommend the following plan: PLAN RELATED TO MS HEALTH AND SYMPTOMATIC THERAPIES Continue Tysabri DMT. Plan to get Tysabri lab monitoring today (CBC with diff, hepatic panel, and JCV antibody). 2. Brain MRI imaging 04/2023 as annual disease surveillance. 3. Refer to outpatient PT/OT. Orders will be given to patient to take locally. 4. Refer to Interventional Radiology re: port placement. 5. Continue to follow with psychiatry. PLAN RELATED TO CLINIC FOLLOW UP 1. I will schedule a follow-up visit in [address] Rangel Kraft with same day MRI imaging. 2. Please arrive 30 minutes before your appointment to allow time to complete paperwork and MS specific testing prior to seeing your MS specialist. If you arrive late you may not be able to be seen that day and may need to reschedule your visit. 3. Please sign up for the e-volo patient portal. [employer] gives you controlled access to the same [facility] medical records your [facility] care team use, via browser or mobile justin (for iOS and Android). Its allows you to review some of your testing results, and provides you with a communication link to your care providers. 4. When your testing is completed, your MS care team will review all results and contact you if a finding requires follow up before your next visit. Otherwisee, we will discuss your test results [id number] at your next clinic visit. Many of your testing results, however, can be reviewed online through [employer]. Education regarding NATALIZUMAB (Tysabri), disease modifying therapy administered as an IV infusion once every 28 days. Mechanism of Action: Natalizumab is a monoclonal antibody against VLA4 that prevents immune cells from leaving the blood stream to enter into the brain (causing inflammatory damage in the setting of MS). Efficacy Data: Efficacy data is derived from the AFFIRM and SENTINEL trials, the mcc follow up studies, and our own clinical experience using natalizumab in our patients since 2003. Relapses: In the AFFIRM trial, natalizumab (ARR 0.22) decreased relapse rates by 68% compared to placebo (ARR 0.67). Disability: Compared to placebo, NTZ lowed risk of 3 month confirmed disability progression by 42% and reduced flynn+ enhancing lesions by 92%. ANTHONY: In post hoc analysis of the AFFIRM trial, ANTHONY (no evidence of disease activity: no attacks, no 3 month confirmed disability progression on EDSS, no new / enlarged T2 lesions and no new flynn+ enhancing lesions for 24 months) was achieved in 37% of natalizumab treated patients, compared to 7% of placebo patients. In aggressive patients (2+ attacks and 1+ flynn lesion in year prior to trial) 27% of natalizumab treated patients vs. 3% of placebo patients achieved ANTHONY. CDI: Confirmed disability improvements (CDI) was seen in 30% with NTZ vs 19% with placebo. I spent 30 minutes face to face with the patient today. Over half the time was spent counseling regarding her symptoms and clinical presentation as well as coordinating care. Thank you very much for allowing me to participate in this patient's care and please do not hesitate to contact me with questions or concerns. Sincerely, Anika Rodriguez CNP Certified Nurse Practitioner [facility] Neurology- Multiple Sclerosis [address] [place] [id number] [email or web address] documented in this encounter [facility] 09-15-2022 Telephone encounter Note Signed prescription faxed as requested, confirmation received. [facility] 09-15-2022 Miscellaneous Notes Signed prescription faxed as requested, confirmation received. Addended by: CE POSADA on: 09/14/2022 07:43 AM Modules accepted: Orders Hi Do I need to sign a new order. Sicamy Kraft MD [facility] Staff Neurologist Neuroimmunology & Multiple Sclerosis [facility], [place], [place] Clinic 4:33 PM 09/11/22 Rec'd VMM from Dayna Edgar stating pt is scheduled for Tysabri next week but they need a new order. This may be faxed to [phone] documented in this encounter [facility] 09-14-2022 Note Addended by: CE CHEN on: 09/14/2022 07:43 AM Modules accepted: Orders [facility] 09-11-2022 Telephone encounter Note Hi Do I need to sign a new order. Sicnerely Bri Kraft MD [facility] Staff Neurologist Neuroimmunology & Multiple Sclerosis [facility] [address] [place] [address] Rd[address], [place], [place] Clinic 4:33 PM 09/11/22 [facility] 09-11-2022 Telephone encounter Note Rec'd VMM from Dayna Edgar stating pt is scheduled for Tysabri next week but they need a new order. 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 Pt shared she would like to do more physical therapy sessions, but the rehabilitation center were she was going could not secure insurance authorization. Medicare is primary. In discussion, it appears she may have reached her max potential (for the time being) and there is no current change/decline to justify additional sessions. Pt is seeking treatment at a different center. JAYY advised pt that there may be some limited financial assistance from MS organizations, but given the OOP costs if may not be more than a few sessions. Pt will await word from recent referral. Pt had no other needs/concerns to report today. JAYY will continue to follow. Pt seen today in MS Clinic for therapy screen. Most recent therapy services: 2020, visits were limited due to insurance Cognition/language screen: ongoing STM deficits Swallowing screen: denies deficits Self-care screen: independent Upper extremity screen: denies deficits. Does have L carpal tunnel surgery scheduled in June of this year Falls in past 6 months: multiple Device/Equipment: straight cane Functional Mobility Assessment: n/a Therapy needs: pt has orders for PT/ST already and plans to pursue close to home through [facility] Education provided: benefit of revisiting OP therapies No charge for screen this date. 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 Pt seen today in MS clinic for therapy screen. Limitations in gross functional mobility: impaired balance, difficulty walking, impaired endurance. Upcoming carpal tunnel surgery (June 2022). Device/Equipment: straight cane for all mobility Falls in past 6 months: frequent, ~1x/day. Most recent therapy services: OP therapy 2020 Swallowing Questions: 1. Do you cough/choke and/or have persistent throat clearing with liquids/solids?: no 2. Do you ever have the sensation of food sticking in your throat?: no Cognitive Questions: Have you noticed a change in memory, attention (keeping your attention, completing 2 tasks at once, alternating your attention between task)? : yes Have you noticed a change in organization skills, ability to plan/sequence/follow through with a task?: yes Have you noticed a change and/or increase difficulty finding the rights words when communicating? : no Therapy needs identified: [facility] PT/ST -- working with other neurologist to get orders placed and get pre-auth completed due to insurance limitations. Education provided: Diagnosis specific education regarding role of therapy and Role of exercise and exercise guidelines No charge for PT screen this date. Will continue to follow at MS clinic and assess for PT related needs. [facility] Department of Neurology Clinic Follow Up Note 05/04/2022 IMPRESSION: 1. Relapse remitting multiple sclerosis 2. Gait disorder 3. Seizure disorder 4. Chronic fatigue 5. Cognitive complaints 6. Headaches 7. Mood disorder 8. Vitamin D deficiency Odessa Ireland is a 41 y.o. female with a past medical history of relapsing remitting multiple sclerosis who is presenting today as a follow-up. Multiple sclerosis In regards to the patient's diagnosis, the patient has active relapsing remitting multiple sclerosis. The patient seems to be tolerating Tysabri well. Consequently, we will plan to continue the patient on Tysabri as long as she does not develop a JCV index greater than 0.9, breakthrough disease, recurrent infections, opportunistic infections, or other troublesome side effects. We spent time reviewing the risks, side effects, and benefits of Tysabri. While on Tysabri, the patient needs to get a JCV index every 3 months. The patient should also get a CBC and LFT checked annually. The patient will be next due for an MRI of her brain without contrast in April 2023. If the patient ever broke through on Tysabri, then I would favor escalating her to ocrelizumab. However, it may be reasonable to consider escalation to Lemtrada depending on how badly she broke through. If the patient became intolerant of Tysabri, then I will consider ozanimod, ocrelizumab, Mavenclad, or ofatumumab. Gait disorder In regards to the patient's gait disorder, it is difficult to tell how impaired her gait is due to functional overlays. I feel that the patient needs to get physical therapy. I will have social work meet with the patient determine if there is any financial assistance that she could get that could help her afford therapy. Given that the patient has a history of seizures, she is not a candidate for Ampyra. Seizure disorder In regards the patient's seizure disorder, I agree with the patient's management of her seizures by her local neurologist. We will defer management of her seizures to her local neurologist. Chronic fatigue In regards to the patient's chronic fatigue, I feel that Provigil is a reasonable option in her. I will defer this management to her treating psychiatrist. Cognitive complaints In regards to the patient's cognitive complaints, I feel that they are more likely due to polypharmacy, multiple sclerosis, and her mood disorder. I do not see a role for Aricept in the treatment of this patient. However, I will defer this to her treating neurologist. I feel that the patient could benefit from cognitive therapy. Headaches In regards to her headaches, they seem to be under decent control with amitriptyline 50 mg by mouth at bedtime and Imitrex. Mood disorder In regards to the patient's mood disorder, I have concerns that several of the medication that she is on may be impacting her memory. If possible, I would recommend minimizing her Ativan. If she is on less Ativan, then she may require less stimulants. I will defer this management to her psychiatrist. Vitamin D deficiency In regards to the patient's vitamin D deficiency, we will continue the patient on 2000 units of vitamin D3 once daily. We will check a vitamin D level today. We will make adjustments to her supplementation as needed. Follow-up At the patient's next visit, which should be 6 months from today, we should monitor the patient for any evidence of disease activity. We should ensure that natalizumab is still a safe and effective treatment in her. We should ensure that she is getting the required lab work to safely infuse this drug. We should monitor her gait issues and make recommendations for therapy as needed. We should also ensure that the patient is following with her local neurologist and getting care for seizure disorder. I instructed the patient to call my office with any questions, concerns, issues or problems. I also counseled the patient if she is suffering a medical emergency to not call my office but either call 911 or go immediately to the emergency department. I recommend the following plan: PLAN: I recommend continuing neuro-immunologic DMT with Amber (natalizumab) I recommend checking the following labs/tests for her neurologic therapy Lab (for natalizumab): quarterly KATIE virus Ab, CBC, liver enzymes I recommend MR head w/o contrast due in 6 month(s) to be reviewed at the next visit. For symptom management, I recommend the following plan: - that we continue current symptomatic medications without change. We recommend a regular exercise program. We recommend that taking 2000 iu of [id number] vitamin D3 daily. and We will check a viamin D level. Our goal level is between 50-100. . I recommend making the following referrals: Physical therapy for balance Occupational therapy for memory Social work for help with rescources. Smoking and second hand smoke lead to worsening of your health. If you are smoking, we recommend choosing a quit date. Once you have chosen a quit date, we will discuss medication and alternative therapies to help you quit. Furthermore, I recommend she contact 1800-QUIT NOW for free assistance with smoking cessation counseling and nicotine replacement therapy if needed. No follow-ups on file. If new questions or concerns arise prior to your next visit, please call our office for urgent concerns (emergency room) or for new symptoms lasting > 24 hours or send a mychart message for non-urgent concerns as you may need to be seen earlier. ADDITIONAL PATIENT INFORMATION Total Time Spent: On the date of this encounter, I spent a total of at least 40 minutes on the encounter, including pre-visit work, intra-visit work, post-visit work and associated documentation. Bri Kraft MD Voice recognition technology was used to aid in the documentation of this medical record. Some words may not be printed exactly as they were spoken. While efforts were made to carefully edit and correct any inaccuracies, some typographical errors may be present. The provider or the clinic can be contacted if corrections are needed. Review of Neuroimmunological Disease Primary Neurological Diagnosis: RRMS Date of Symptom Onset: 03/06/15 Year of diagnosis: 2014 Relapse History 2015 Optic neuritis Most Recent EDSS: Year of insidious progression: Time on DMT Month Year Month Year Multiple-Sclerosis -Disease-Modifying Therapies natalizumab dimethyl fumarate Start: 2020 Stop: 2020 Multiple-Sclerosis - Disease-Modifying Therapies natalizumab dimethyl fumarate Most Recent MRI Brain: 05/04/22 Most Recent MRI Cervical Spine: 10/28/21 Most Recent MRI Thoracic Spine: 10/28/21 MRI Changes 2021 2021 2021 2021 2020 2020 2019 2018 2018 brain brain cervical spine thoracic spine brain brain brain brain cervical spine Number of New lesions: 0 1 0 0 0 0 0 0 Most Recent OCT: CSF Studies: 2018 2014 OCB: unknown yes Other Testing: Ethnicity: Dominant Hand: Highest Level of education (in years): Chief Complaint: Neurology Follow Up Visit from 07/14/2021 INTERIM HISTORY Life changes: No Medical history/non-neurologic medication changes: Yes, kidney stones, She had a non-epileptic spells. Since last visit, she has been having a a fall twice per week. She reports that is about 8 per month. She reports that her leg will give out from underneath her. It varries from dizziness. She has had a lot of falls, but no series She reports that her headaches are okay. She reports that it is a couple times per month. She reports that her headaches rarely require imatrex. Energy levels are generally fair / acceptable. She reports that she has issues with sleeping. Sometimes it is the brain sometimes it is pain. She reports that her racing mind can help her fall asleep. Mood is fair / acceptable. She still has anxiety and depression. They recently increased her ativan and zoloft. Cognition is poor . She has occasionally word finding. She needs a lot of reminders. She reports that she is more forgetful Bladder is good. She is on terminal clerk disability She is involved in regular exercise / physical conditioning. She reports that she is doing chair yoga and a peddle thing. She is currently supplementing vitamin D3. She is not using tobacco. Symptom Inventory: Review of systems performed by the ENDBANDER/RN/medical intern, personally reviewed and viewable in the current patient encounter. [facility] ROS No documentation. 14 systems reviewed and negative except for as noted above. Past Medical History: Diagnosis Date Anxiety Fatty liver GERD (gastroesophageal reflux disease) Multiple sclerosis (HCC) Neuropathic pain Pseudoseizure PTSD (post-traumatic stress disorder) Past Surgical History: Procedure Laterality Date SECTION, LOW TRANSVERSE CHOLECYSTECTOMY HYSTERECTOMY OOPHORECTOMY TONSILLECTOMY TUBAL LIGATION Social History Tobacco Use Smoking status: Never Smokeless tobacco: Never Vaping Use Vaping Use: Never used Substance Use Topics Alcohol use: Yes Comment: rarely, Drug use: Never Family History Problem Relation Age of Onset Ovarian cancer Mother Heart disease Mother Diabetes Mother Depression Mother Cancer Father Heart disease Father Hypertension Father Migraines Father Stroke Father Post-traumatic stress disorder Father Hypertension Brother Breast cancer Maternal Aunt Colon cancer Maternal Uncle Lupus Paternal Aunt Dementia Maternal Grandmother Memory loss Maternal Grandmother Dementia Paternal Grandmother Memory loss Paternal Grandmother Lung cancer Other Lupus Paternal Aunt Bone cancer Maternal Aunt Seizures Neg Hx Multiple sclerosis Neg Hx Allergies Allergen Reactions Codeine Other (See Comments) Confusion, tried to jump out of a window GENERAL PHYSICAL EXAMINATION Vital Signs: not currently . General Appearance: in no apparent distress, well nourished, conversant, cooperative Eyes: Anicteric sclerae. Moist conjunctivae. No lid edema noted. HENT: Head atraumatic, normocephalic. Oropharynx clear. Moist mucous membranes. Neck/ Thyroid:trachea midline. Supple. No massess. No thyromegaly. CV: RRR, , no murmurs, rubs, clicks, or gallops, Palpable pulses throughout and no lower extremity edema Lungs: Normal respiratory effort. No intercostal retractions. No dyspnea during conversation. Abdomen: soft, non-distended Extremities: no clubbing, cyanosis, pedal edema, ulcer nor wound noted. Skin: warm, dry, no rash, no ecchymoses, no petechiae noted Pysch: normal mood, behavior, speech, dress, and thought processes NEUROLOGIC EXAMINATION MENTAL STATUS: intact to casual conversation. Normal language function regarding fluency and comprehension. Normal mood and affect. CRANIAL NERVES: CN II: Visual tamayo full to confrontation CN III, IV, : Eyes are aligned in primary gaze. Extra ocular movements intact without nystagmus. Normal convergence. No GEOFF noted. No ptosis noted. CN V, VII: Sensation and strength are intact and symmetric. CN VIII: Hearing intact to finger rub bilaterally CN IX, X: Palate elevated symmetrically. No dysarthria noted. CN XI: Sternocleidomastoid and trapezius strength is full bilaterally. CN XII: The tongue protrudes in the midline. No fasciculation or atrophy appreciated. PYRAMIDAL: Pronator drift noted on the right , Satelliting not noted., poor effort Manual Muscle Testing: D B T WE FF IO HF KF KE DF PF Right 4 5 5 4 5 4 4 w/ patrick sign 4 5 3 3 Left 5 5 5 5 5 5 5 5 5 5 5 Modified Michael Score: B T Hip add KF KE DF PF Right 0 0 0 0 0 Left 0 0 0 0 0 SENSORY:light touch decreased in right side and temperature decreased in right side COORDINATION: Normal smooth eye pursuits, no saccadic intrusions noted. No truncal ataxia noted with sitting. Normal allwln-drdu-tgfqpx, fine finger, and qzle-ns-rugx movements without evidence of appendicular dysmetria nor ataxia. No tremors or abnormal movements noted. GAIT: Description: astasia abasia DIAGNOSTIC TESTING LABS Scanned Document on 11/07/2021 Component Date Value Ref Range Status JCV Ab by Inhibition Interpretation 10/28/2021 Negative Negative Final Stratify JCV Ab (with Index) w/RFL* 10/28/2021 0.10 Final JCV Antibody 10/28/2021 Negative Negative, Indeterminate Final ] documented in this encounter [facility] 05-04-2022 Instructions Bri Kraft MD - 05/04/2022 1:57 PM EDT I recommend continuing neuro-immunologic DMT with Amber (natalizumab) I recommend checking the following labs/tests for her neurologic therapy Lab (for natalizumab): quarterly KATIE virus Ab, CBC, liver enzymes I recommend MR head w/o contrast due in 6 month(s) to be reviewed at the next visit. For symptom management, I recommend the following plan: - that we continue current symptomatic medications without change. We recommend a regular exercise program. We will check a viamin D level. Our goal level is between 50-100. . I recommend making the following referrals: Physical therapy for balance Occupational therapy for memory Social work for help with rescources. Smoking and second hand smoke lead to worsening of your health. If you are smoking, we recommend choosing a quit date. Once you have chosen a quit date, we will discuss medication and alternative therapies to help you quit. Furthermore, I recommend she contact [email or web address] NOW for free assistance with smoking cessation counseling and nicotine replacement therapy if needed. documented in this encounter [facility] 05-04-2022 History of Present illness Narrative MRI Brain (I have independently reviewed the following images): Study Date: 05/04/22. Comparison Study Date: 10/28/21. Study Location:[facility], [place] protocol used: yes. Scanner Strength: 3T, Slice and Gap thickness: 1 mm voxel and NO gap, Image Quality: excellent. Findings: T2 bright lesion burden of disease: mild Periventricular T2 bright lesions: . yes Juxtacortical T2 bright lesions:yes CC T2 bright lesions: yes Infratentorial lesions: no T1 black holes:yes T1 flynn enhancing lesions: na Visual assessment of atrophy: mild Findings vs. comparision study: New/Enlarged T2 bright lesions: no New T1 black holes: no Visual assessment of atrophy: unchanged MRI brain Impression: stable study Neuroradiologist Impression: pending documented in this encounter [facility] 10-28-2021 History of Present illness Narrative Pt seen today in [facility] clinic for therapy screen. Limitations in gross functional mobility: impaired balance, difficulty walking, decline in ADLs/IADLs, impaired endurance, need for DME to assist with mobility Device/Equipment: straight cane and Rollator Falls in past 6 months: yes, no longer keeps track Fatigue: yes Current routine exercise program: HEP from previous therapies Most recent therapy services: completed outpatient therapies in early 2020, then ran out of visits per insurance. Then tried to go to [facility] but was told her insurance would not cover more visits and to wait until 2021. She followed up in September and has been in touch with someone from [facility] who is still trying to figure out insurance barriers. Patient plans to myChart this person's contact information and this therapist will follow up with new referral as needed. Functional Mobility Assessment: L SPC, decreased gait speed, narrow CARELNE, slight antalgic pattern Therapy needs identified: motivated to complete outpatient PT, OT, ST but having insurance limitations. Provided with [facility] virtual fitness information and placed referral for [facility]. Will wait for patient's Giftikihart message. Education provided: Quality of movement, HEP Adherence, Community Resources, Community Fitness, Diagnosis specific education regarding role of therapy and Importance of attendance to therapy No charge for PT screen this date. Will continue to follow at [facility] clinic and assess for PT related needs. [facility] Department of Neurology Clinic Follow Up Note 10/28/2021 IMPRESSION: 1. Relapse remitting multiple sclerosis 2. Gait disorder 3. Seizure disorder Odessa Ireland is a 41 y.o. female with a past medical history of relapsing remitting multiple sclerosis who is presenting today as a follow-up. Multiple sclerosis In regards to the patient's diagnosis, the patient has active relapsing remitting multiple sclerosis. The patient had a new MRI lesion compared to her MRI in April. It is too early to consider this a treatment failure for the patient. At this point, we will need to repeat an MRI of the brain without contrast in 6 months. If she continues to develop new lesions while on Tysabri, then we will need to escalate her therapy further. If I had to escalate her therapy, then I would favor ocrelizumab in her first. However, it may be reasonable to consider Lemtrada. While on Tysabri, the patient needs to get a JCV index every 3 months. I will have our nursing staff reach out to her infusion center to make sure that they understand that this is a needed order. We will check a JCV index today in order to ensure that she is JCV negative. We spent time reviewing the risks, side effects, and benefits of to natalizumab. We will also check other safety monitoring consisting of a CBC and LFTs today as well. Gait disorder In regards to the patient's gait disorder, I feel that the patient needs to get physical therapy. I will place an order for a Rollator. I will have our physical therapy assess the patient and determine what therapy she would qualify for. Given that the patient has a history of seizures, she is not a candidate for Ampyra. Seizure disorder Regards the patient's seizure disorder, I agree with the patient's management of her seizures by her local neurologist. We will defer management of her seizures to her local neurologist. Follow-up At the patient's next visit, which should be 6 months from today, we will need to review the MRI that she should have had done just prior to this visit. We should ensure that natalizumab is still a safe and effective treatment in her. We should ensure that she is getting the required lab work to safely infuse this drug. We should monitor her gait issues and make recommendations for therapy as needed. We should also ensure that the patient is following with her local neurologist and getting care for seizure disorder. I instructed the patient to call my office with any questions, concerns, issues or problems. I also counseled the patient if she is suffering a medical emergency to not call my office but either call 911 or go immediately to the emergency department. I recommend the following plan: PLAN: 1. I recommend continuing neuro-immunologic DMT with Tysabri (natalizumab) 2. I recommend checking the following labs/tests for her neurologic therapy o Lab (for natalizumab): quarterly KATIE virus Ab, CBC, liver enzymes 3. I recommend MR head w/o contrast due in 6 month(s) to be reviewed at the next visit. 4. For symptom management, I recommend the following plan: o - that we continue current symptomatic medications without change. 5. We recommend a regular exercise program. 6. We will check a viamin D level. Our goal level is between 50-100. . 7. I recommend making the following referrals: o Physical therapy for balance 8. Smoking and second hand smoke lead to worsening of your health. If you are smoking, we recommend choosing a quit date. Once you have chosen a quit date, we will discuss medication and alternative therapies to help you quit. Furthermore, I recommend she contact [email or web address]-[email or web address] NOW for free assistance with smoking cessation counseling and nicotine replacement therapy if needed. No follow-ups on file. If new questions or concerns arise prior to your next visit, please call our office for urgent concerns (emergency room) or for new symptoms lasting > 24 hours or send a Andera message for non-urgent concerns as you may need to be seen earlier. ADDITIONAL PATIENT INFORMATION Total Time Spent: On the date of this encounter, I spent a total of at least 30 minutes on the encounter, including pre-visit work, intra-visit work, post-visit work and associated documentation. Bri Kraft MD Voice recognition technology was used to aid in the documentation of this medical record. Some words may not be printed exactly as they were spoken. While efforts were made to carefully edit and correct any inaccuracies, some typographical errors may be present. The provider or the clinic can be contacted if corrections are needed. Review of Neuroimmunological Disease Primary Neurological Diagnosis: RRMS Date of Symptom Onset: 03/06/15 Year of diagnosis: 2015 Relapse History 2015 Optic neuritis Most Recent EDSS: Year of insidious progression: Time on DMT Month Year Month Year Multiple-Sclerosis -Disease-Modifying Therapies natalizumab dimethyl fumarate Start: 2020 Stop: 2020 Multiple-Sclerosis - Disease-Modifying Therapies natalizumab dimethyl fumarate Most Recent MRI Brain: 04/15/21 Most Recent MRI Cervical Spine: 04/02/19 Most Recent MRI Thoracic Spine: 05/14/17 MRI Changes 2020 2020 2019 2018 2018 brain brain brain brain cervical spine Number of New lesions: 0 0 0 0 Most Recent OCT: CSF Studies: 2018 2014 OCB: unknown yes Other Testing: Ethnicity: Dominant Hand: Highest Level of education (in years): Chief Complaint: Neurology Follow Up Visit from 07/14/2021 INTERIM HISTORY Life changes: No Medical history/non-neurologic medication changes: No Since last visit, she reports that she has had 4 falls since the last time that she was seen. She reports that she has jher right leg give out form underneath. She reports that she is has not been able to get it covered by physical therapy. Energy levels are generally improved from before. It is improved since she started Provigil. Mood is fair / acceptable. She reports that she had some issues with mood. She had her medication changed. It is better now Cognition is stable / unchanged. She has occasionally word finding Bladder is good. She is on [employer] disability She is involved in regular exercise / physical conditioning. She is currently supplementing vitamin D3. She is not using tobacco. Symptom Inventory: Review of systems performed by the ENDBANDER/RN/medical intern, personally reviewed and viewable in the current patient encounter. [facility] ROS - 10/28/21 1302 General Change in weight No Fever No Chills No Night Sweats No Cough No Shortness of Breath No Joint pain / swelling Yes Muscle pain / cramps Yes Chest pain No Palpitations No Nausea / Vomiting No Neurologic Double vision No Blurred / decreased vision No Difficulty swallowing No Difficulty with speech No Numbness / tingling Yes Painful skin sensations Yes Muscle weakness Yes Heat sensitivity Yes Motor fatigue No Incoordination/ poor balance Yes Difficulty walking Yes Recent Falls Yes L'hermitte No Difficulty with thinking and memory Yes Pathologic fatigue No Depression Yes Anxiety Yes Urinary urgency No Urinary frequency No Urinary retention / hesitancy No Recent Urinary Tract Infections No Bowel complaints No Sexual Dysfunction No Poor sleep Yes Headaches No Recent Seizures No 14 systems reviewed and negative except for as noted above. Past Medical History: Diagnosis Date Anxiety Fatty liver GERD (gastroesophageal reflux disease) Multiple sclerosis (HCC) Neuropathic pain Pseudoseizure PTSD (post-traumatic stress disorder) Past Surgical History: Procedure Laterality Date SECTION, LOW TRANSVERSE CHOLECYSTECTOMY HYSTERECTOMY OOPHORECTOMY TONSILLECTOMY TUBAL LIGATION Social History Tobacco Use Smoking status: Never Smoker Smokeless tobacco: Never Used Vaping Use Vaping Use: Never used Substance Use Topics Alcohol use: Yes Comment: rarely, Drug use: Never Family History Problem Relation Age of Onset Ovarian cancer Mother Heart disease Mother Diabetes Mother Depression Mother Cancer Father Heart disease Father Hypertension Father Migraines Father Stroke Father Post-traumatic stress disorder Father Hypertension Brother Breast cancer Maternal Aunt Colon cancer Maternal Uncle Lupus Paternal Aunt Dementia Maternal Grandmother Memory loss Maternal Grandmother Dementia Paternal Grandmother Memory loss Paternal Grandmother Lung cancer Other Lupus Paternal Aunt Bone cancer Maternal Aunt Seizures Neg Hx Multiple sclerosis Neg Hx Allergies Allergen Reactions Codeine Other (See Comments) Confusion, tried to jump out of a window GENERAL PHYSICAL EXAMINATION Vital Signs: Blood pressure 130/84, pulse (!) 112, weight 124.8 kg (275 lb 3.2 oz), not currently . General Appearance: in no apparent distress, well nourished, conversant, cooperative Eyes: Anicteric sclerae. Moist conjunctivae. No lid edema noted. HENT: Head atraumatic, normocephalic. Oropharynx clear. Moist mucous membranes. Neck/ Thyroid:trachea midline. Supple. No massess. No thyromegaly. CV: RRR, , no murmurs, rubs, clicks, or gallops, Palpable pulses throughout and no lower extremity edema Lungs: Normal respiratory effort. No intercostal retractions. No dyspnea during conversation. Abdomen: soft, non-distended Extremities: no clubbing, cyanosis, pedal edema, ulcer nor wound noted. Skin: warm, dry, no rash, no ecchymoses, no petechiae noted Pysch: normal mood, behavior, speech, dress, and thought processes NEUROLOGIC EXAMINATION MENTAL STATUS: intact to casual conversation. Normal language function regarding fluency and comprehension. Normal mood and affect. CRANIAL NERVES: CN II: Visual tamayo full to confrontation CN III, IV, : Eyes are aligned in primary gaze. Extra ocular movements intact without nystagmus. Normal convergence. No GEOFF noted. No ptosis noted. CN V, VII: Sensation and strength are intact and symmetric. CN VIII: Hearing intact to finger rub bilaterally CN IX, X: Palate elevated symmetrically. No dysarthria noted. CN XI: Sternocleidomastoid and trapezius strength is full bilaterally. CN XII: The tongue protrudes in the midline. No fasciculation or atrophy appreciated. PYRAMIDAL: Pronator drift noted on the right , Satelliting not noted., poor effort Manual Muscle Testing: D B T WE FF IO HF KF KE DF PF Right 4 5 5 5 5 5 4 w/ patrick sign 4 5 3 3 Left 5 5 5 5 5 5 5 5 5 5 5 Modified Michael Score: B T Hip add KF KE DF PF Right 0 0 0 0 0 Left 0 0 0 0 0 SENSORY:light touch normal in all four extremities COORDINATION: Normal smooth eye pursuits, no saccadic intrusions noted. No truncal ataxia noted with sitting. Normal pcpiqg-hurz-cnndlv, fine finger, and exvz-kc-vshk movements without evidence of appendicular dysmetria nor ataxia. No tremors or abnormal movements noted. GAIT: Description: astasia abasia DIAGNOSTIC TESTING MRI Brain (I have independently reviewed the following images): Study Date: 10/28/21. Comparison Study Date: 04/15/21. Study Location:[facility], [place] protocol used: yes. Scanner Strength: 3T, Slice and Gap thickness: 1 mm voxel and NO gap, Image Quality: acceptable. Findings: T2 bright lesion burden of disease: moderate Periventricular T2 bright lesions: . yes Juxtacortical T2 bright lesions:yes CC T2 bright lesions: yes Infratentorial lesions: no T1 black holes:yes T1 flynn enhancing lesions: no Visual assessment of atrophy: moderate Findings vs. comparision study: New/Enlarged T2 bright lesions: yes New T1 flynn+ lesions: no New T1 black holes: no Visual assessment of atrophy: unchanged MRI brain Impression: active study (new / enlarged T2 lesions or new T1 flynn+ lesions noted) Neuroradiologist Impression: pending LABS Abstract on 06/25/2021 Component Date Value Ref Range Status JCV Ab by Inhibition Interpretation 06/18/2021 Negative Negative Final Stratify JCV Ab (with Index) w/RFL* 06/18/2021 0.08 Final JCV Antibody 06/18/2021 Negative Negative, Indeterminate Final Abstract on 06/24/2021 Component Date Value Ref Range Status JCV Ab by Inhibition Interpretation 06/18/2021 Negative Negative Final Stratify JCV Ab (with Index) w/RFL* 06/18/2021 0.08 Final JCV Antibody 06/18/2021 Negative Negative, Indeterminate Final ] documented in this encounter [facility] 10-28-2021 Instructions Bri Kraft MD - 10/28/2021 2:21 PM EST Images from the original note were not included. I recommend continuing neuro-immunologic DMT with Amber (natalizumab) I recommend checking the following labs/tests for her neurologic therapy Lab (for natalizumab): quarterly KATIE virus Ab, CBC, liver enzymes I recommend MR head w/o contrast due in 6 month(s) to be reviewed at the next visit. For symptom management, I recommend the following plan: - that we continue current symptomatic medications without change. We recommend a regular exercise program. We will check a viamin D level. Our goal level is between 50-100. . I recommend making the following referrals: Physical therapy for balance Smoking and second hand smoke lead to worsening of your health. If you are smoking, we recommend choosing a quit date. Once you have chosen a quit date, we will discuss medication and alternative therapies to help you quit. Furthermore, I recommend she contact [email or web address] NOW for free assistance with smoking cessation counseling and nicotine replacement therapy if needed. PLAN REGARDING MANAGMENT OF FUTURE MS RELAPSES We discussed the concept of an MS relapse and our center's approach to managing MS relapses today. We discussed the concept of a pseudo-MS relapse where MS patients will often experience a transient worsening of baseline neurological symptoms in the setting of fever, infection, and severe psycho-social stressors. We recommend that Odessa Ireland contact our office in the event of any new or worsening neurological symptoms lasting longer than two days. PLAN REGARDING DISEASE MODIFYING THERAPY We discussed the natural history of relapsing remitting multiple sclerosis and the realistic goals of disease modifying therapies (DMT) to decrease the frequency and severity of MS attacks and decrease neurological worsening. We shared our belief that consistent DMT use in relapsing forms of multiple sclerosis is one of the most important tools we use to improve outcomes. We stress the importance of DMT adherence and the need for constant open communication between the patient and care team. We briefly eviewed relevant mechanism of action, efficacy, safety and tolerability of several multiple sclerosis DMTs based on both clinical trial data and our MS centers experience. We also briefly discussed clinical trials for relapsing remitting multiple sclerosis at [facility]. For more information about our clinical trial opportunities please contact your MS provider. Odessa Ireland's neurological functioning and her response to DMT will assessed through several lines of evidence collected before each clinic visit. This includes her responses to MS symptoms specific questionnaires and her performance on MS specific clinical tests of vision, thinking, hand function and walking speed. Our center requires Odessa Ireland to always arrive at least 30 minutes before each clinic appointment to allow time for these tests. Response to disease modifying therapy will also be assessed through MRI scans of the brain and sometimes the spinal cord. This is needed to identify sub-clinical disease activity and her response to her disease modifying therapy. Optical Coherence Tomography (OCT), which measures the retinal nerve fiber layer (RNFL) of the eye, is another complementary way to measure MS disease activity. PLAN RELATED TO CLINIC FOLLOW UP 1. I will schedule a follow-up visit in No follow-ups on file. . 2. Please arrive 30 minutes before your appointment to allow time to complete paperwork and MS specific testing prior to seeing your MS specialist. If you arrive late you may not be able to be seen that day and may need to reschedule your visit. 3. Please sign up for the e-volo patient portal. Ricebook gives you controlled access to the same [employer] medical records your [facility] care team use, via browser or mobile justin (for iOS and Android). Its allows you to review some of your testing results, and provides you with a communication link to your care providers. 4. Many of your test results can be reviewed online at any time through Ricebook. Your MS care team will review all results, but will only contact you if a finding requires urgent medical attention. Your MS Care team will always discuss your test results with you [id number] at your next clinic. PATIENT AND CAREGIVER EDUCATION 1. People with MS who smoke tend to have a faster progression of disease compared to those that do not. Also, people with clinically isolated syndrome who smoke are at risker to convert to MS compared to non-smokers. 2. We recommend that all MS patient participate in regular exercise, to the extent that they are able. Swimming, water aerobics and yoga are excellent considerations. 3. A healthy diet is beneficial in MS. We recommend the following: A. Calorie and content (simple carbohydrates, fats) control B. Share portions C. Eat SLOWER D. Salad dressing on the side E. Watch out of alcohol calories F. Drink a glass of water before each meal 4. Low levels of vitamin D have been associated with increased MS disease activity. Higher vitamin D levels have been associated with decreased MS disease activity. Our goal vitamin D level in our MS patients is generally between 50-100. 5. Multiple Sclerosis is an independent risk factor for accelerated bone loss (osteopenia/osteoperosis) and pathologic fractures. We recommend that all people with MS over age 50 have regular bone density testing with their PCP. 6. People with MS and their family must use caution when reading anything on the Internet about MS. Information on the Internet may be inaccurate or outdated, even if it looks real . We encourage you to discuss with us information you read on the internet, to help you clarify if it is accurate and if it applies to you specifically. Below are list of links to MS educational sources online: [facility] (www.Advanced [employer].rumr le word: multiple sclerosis) Multiple Sclerosis Association of [place] (www.mymsaa.org) Multiple Sclerosis Foundation (www.msfocus.org) Can do Multiple Sclerosis ( www.mscando.org ) National Multiple Sclerosis Society (www.nationalmssociety.org) [facility] (www.[facility]) Gather MS: linking people with MS to local community resources: https://www.[facility] ([facility])ms.com/ 7. For information on the [facility]'s clinical trial program please talk to your MS provider. 8.Support Groups: MS Groups take place at The [facility] Education [facility] Resource Center at [facility]: [address] [place] [address]. Parking vouchers will be provided. All support and wellness opportunities will be offered free of charge at the [facility] at [facility]. The [facility] is located in the [address] Pre-registration is required unless otherwise noted. Call [phone] or e-mail: [email or web address]. Call to confirm dates/times. [facility] 2020 MS Educational Series Presentations by Drs. Nguyen Lynn, Isael Randall, Bri Kraft, Shar Kraft and other MS team members. All presentations: Wednesday of the month October through June (May is Wednesday of due to holiday) from 6-7 PM (immediately following the Life with MS support group meeting). Light refreshments will be served. Caregiver/General Manager Food Support Group: offers opportunities to connect with others, receive education and support, as well as learn about community resources. Meets of each month 2-3 pm or 6-7pm. Art Therapy: designed to provide a means to help you relax through creative activities, as well as express and explore your emotions and concerns. Led by a Registered Art Therapist. Meets Wednesday of each month: 11am-12:30p and Wednesday of each month: 6pm-7:30pm Music Therapy: a fun and useful tool to maximize neurological function and connect mind, body and spirit. Led by a Board Certified Neurologic Music Therapist. Meets and of each month: 1pm-2pm and Wednesday: 6:30-7:30pm Neuro Choir: Singing benefits your health, recovery and well-being. The choir is led by a Board Certified Neurologic Music Therapist. Meets : 2pm-3pm and Wednesday of each month: 6:30-7:30pm Neuro Yoga: learn and enhance your yoga skills. Opportunities include: caregiver class, 6 week intro series, chair yoga, and a class for experienced yoga practitioners. Call for schedule. Behavioral Health Support Group: For adult friends/family members of adults with mental illness. Receive support, share challenges, and learn about resources. Every Wednesday: 4:30pm-5:30pm. Registration not needed. For more information on the [facility] patient and family support groups and [facility] patient programs please call [phone] or email [email or web address] 10. We believe that consistent disease modifying therapy adherence is one of the most important tools to combat relapsing remitting multiple sclerosis We also believe in the need for constant open communication between the patient and care team about disease modifying therapy tolerance. 11. Education regarding disease modifying therapy discussed today: Education regarding NATALIZUMAB (Tysabri) Education regarding NATALIZUMAB (Tysabri), disease modifying therapy administered as an IV infusion once every 28 days or 42 days after 6 months. Mechanism of Action: Natalizumab is a monoclonal antibody against VLA4 that prevents immune cells from leaving the blood stream to enter into the brain (causing inflammatory damage in the setting of MS). Efficacy Data: Efficacy data is derived from the AFFIRM and SENTINEL trials, the mcc follow up studies, and our own clinical experience using natalizumab in our patients since 2003. Relapses: In the AFFIRM trial, natalizumab (ARR 0.22) decreased relapse rates by 68% compared to placebo (ARR 0.67). Disability: Compared to placebo, NTZ lowed risk of 3 month confirmed disability progression by 42% and reduced flynn+ enhancing lesions by 92%. ANTHONY: In post hoc analysis of the AFFIRM trial, ANTHONY (no evidence of disease activity: no attacks, no 3 month confirmed disability progression on EDSS, no new / enlarged T2 lesions and no new flynn+ enhancing lesions for 24 months) was achieved in 37% of natalizumab treated patients, compared to 7% of placebo patients. In aggressive patients (2+ attacks and 1+ flynn lesion in year prior to trial) 27% of natalizumab treated patients vs. 3% of placebo patients achieved ANTHONY. CDI: Confirmed disability improvements (CDI) was seen in 30% with NTZ vs 19% with placebo. TYSABRI ASSOCIATED PML RISK 1. Risks of Tysabri include a potentially fatal infection called progressive multifocal leukoencephalopathy (PML) that is caused by the re-activation of the KATIE virus. Roughly 20% of the cases were fatal. Many of the surviving patients suffered neurological deficits with only ~20% able to return to work after treatment. We can determine if you have been previously exposed to the JCV through the JCV antibody test. 2. Risk factors for tysabri related PML include JCV antibody positive status, prior immunosuppressive therapies, and number of months on tysabri. Understanding risk of tysabri related PML risk is calculated in the following manner: JCV ANTIBODY NEGATIVE patients have never been exposed to the JCV and carry a risk of PML is <0.09/999. The risk to convert from JCV antibody negative to JCV antibody positive is roughly ~5-7% each year. We monitor for seroconversion with JCV antibody testing every 3 months. JCV ANTIBODY POSITIVE and have had prior immunosuppressive therapy, are in a higher PML risk category. Risk of PML is as follows: Natalizumab Exposure (months) Risk per 1000 Risk as % 1-24 2 0.2 25-48 11 1.1 49-72 9 0.9 JCV antibody positive and HAVE NOT HAD prior immunosuppression, risk of PML is further refined depending on the Optic Density (OD). Considering Optic Density (OD), percentage risk of PML is as follows: Index <0.9 >0.9 <1.5 >1.5 1- 12mo 0.001 0.01 0.02 13-24mo 0.005 0.03 0.09 25-36mo 0.02 0.08 0.26 37-48mo 0.04 0.2 0.68 49-60mo 0.05 0.24 0.79 61-72mo 0.06 0.3 1.0 3. In JCV antibody positive patients, we often obtain more frequent MRI scans to screen for asymptomatic PML lesions. MRIs may occur twice to four times annually per clinician/patient preference. 4. If symptoms of PML or concerning MRI changes are found, we will stop natalizumab and obtain CSF (spinal fluid) for JCV PCR testing, and possibly obtain further MRI scans. If we are concerned for PML we will recommend inpatient hospital admission for 7 total plasma exchanges (done every other day) and high dose steroids to help stave off IRIS. Sincerely, Bri Kraft MD @DATE@ documented in this encounter [facility] 10-16-2021 History of Present illness Narrative TOUCH reauth completed electronically. documented in this encounter [facility] 08-14-2021 Instructions Li Graves RN - 08/14/2021 2:44 PM EST Notify your physician immediately if you become , develop any medical condition that can worsen your immune system (such as HIV or cancer), or if you experience sudden fever, headache, confusion, and allergic reaction symptoms such as itching, hives, or shortness of breath. PML is a rare condition that patients who are KATIE Virus positive and receiving Tysabri MAY be at risk for. Symptoms of PML may include: clumsiness, progressive weakness, visual or speech changes, personality changes, confusion. Contact your neurologist immediately with any of these symptoms. If you have a fever, infection, or are taking antibiotics or other medication for a virus or infection during the week you are scheduled for an infusion, please call your doctor to see if your infusion appointment needs to be postponed. Tysabri may cause you to have a weakened immune system, frequent hand washing or use of hand plant operations manager is advised. It is recommended that you stay one hour after your infusion for observation to ensure you do not have an infusion related reaction. To cancel or reschedule an infusion appointment you may call the infusion center directly at [phone]. For questions about the TOUCH program please call or go to [email or web address]. documented in this encounter [facility] 07-16-2021 Instructions Dilma Yanez RN - 07/16/2021 3:55 PM EST Notify your physician immediately if you become , develop any medical condition that can worsen your immune system (such as HIV or cancer), or if you experience sudden fever, headache, confusion, and allergic reaction symptoms such as itching, hives, or shortness of breath. PML is a rare condition that patients who are KATIE Virus positive and receiving Tysabri MAY be at risk for. Symptoms of PML may include: clumsiness, progressive weakness, visual or speech changes, personality changes, confusion. Contact your neurologist immediately with any of these symptoms. If you have a fever, infection, or are taking antibiotics or other medication for a virus or infection during the week you are scheduled for an infusion, please call your doctor to see if your infusion appointment needs to be postponed. Tysabri may cause you to have a weakened immune system, frequent hand washing or use of hand plant operations manager is advised. It is recommended that you stay one hour after your infusion for observation to ensure you do not have an infusion related reaction. To cancel or reschedule an infusion appointment you may call the infusion center directly at [phone]. For questions about the TOUCH program please call or go to [employer]. documented in this encounter [facility] 07-14-2021 History of Present illness Narrative Pt seen today in MS clinic for therapy screen. Limitations in gross functional mobility: impaired balance, difficulty walking, pain with functional mobility- new back pain for about 1 month, worse in the past 2 weeks due to increase in overall activity Device/Equipment: straight cane and Rollator (using her cane majority of the time due to rollator being broken, ordered a new rollator that is suppose to arrive on 07/15/21) Falls in past 6 months: Has had numerous falls, pt states she doesn't even count how often she falls because it is so frequent Fatigue: yes Current routine exercise program: has just started some HEP Most recent therapy services: is currently doing OP PT, 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 RLE with wide base of support and evidence of instability in stance with genu varus. Pt states her back hurts worse with stair climbing and when she needs to have a bowel movement. She states she has been doing a lot of activity, more than usual, at home with holiday planning. Therapy needs identified: Continue with current therapies Education provided: Quality of movement, Diagnosis specific education regarding role of therapy, Home Safety, Importance of attendance to therapy, Role of exercise and exercise guidelines and Adaptive/Assistive equipment No charge for PT screen this date. Will continue to follow at MS clinic and assess for PT related needs. [facility] Follow Up Note 07/14/2021 IMPRESSION: 1. RRMS 2. Conversion disorder 3. Depression 4. Low back pain with sciatic Odessa Ireland is a 40 y.o. female with Multiple Sclerosis who presents for follow up evaluation. Odessa Ireland remains neurologically stable by clinical history, imaging and neurologic exam. Overall, the patient appears to be tolerating Tysabri well. I will continue natalizumab as long as she does not develop with a high JCV index, breakthrough disease, recurrent infections, or other troublesome side effects. We spent time reviewing the risk and benefits of natalizumab. Regards to her depression and anxiety, I encouraged the patient to follow-up with her mental health provider. I offered the patient physical therapy for some of the stiffness and low back pain that she is having. It would be fair to get an x-ray to evaluate her low back. Her low back pain seems most consistent with sciatica. However, rarely lesions in the lower thoracic cord can cause symptoms like this. We will image her brain, cervical spine, and thoracic spine when she returns to clinic in 3 months for disease monitoring. We reviewed symptoms to looks out for is she developed a profound herniated disc that caused cauda equina syndrome or a cord compression. I advised her that if she developed these symptoms, then she would need to go to the ED. I instructed the patient to call my office with any questions, concerns, issues or problems. I also counseled the patient if she is suffering a medical emergency to not call my office but either call 911 or go immediately to the emergency department. I recommend the following plan: PLAN: 1. I recommend continuing MS DMT with Tysabri (natalizumab) 2. I recommend checking the following labs/tests for safety monitoring while on MS DMT: o Lab: CBC, hepatic panel and KATIE virus Ab 3. I recommend MR head w and w/o contrast , MR C Spine w and w/o contrast and MR T spine w and w/o contrast due in 3 month(s) to be reviewed at the next visit. 4. For MS Symptom Management, I recommend the following plan: o - that we continue current symptomatic medications without change. 5. We recommend a regular exercise program. 6. We will check a viamin D level. Our goal level is between 50-100. . 7. I recommend checking the following labs/tests for general health screening: o Will defer to primary care 8. I recommend making the following referrals: o Physical therapy for low back pain 9. MS patients over 50 are at increased risk for accelerated bone loss (osteopenia or osteoporosis). , Bone density testing not indicated at this time. 10. Smoking and second hand smoke lead to worsening of MS. If you are smoking, we recommend choosing a quit date. Once you have chosen a quit date, we will discuss medication and alternative therapies to help you quit. I recommend she contact 1800-QUIT NOW for free assistance with smoking cessation counseling and nicotine replacement therapy. No follow-ups on file. If new questions or concerns arise prior to your next visit, please call our office for urgent concerns (emergency room) or for new symptoms lasting > 24 hours or send a Andera message for non-urgent concerns as you may need to be seen earlier. ADDITIONAL PATIENT INFORMATION A total of 25 minutes was spent face to face with the patient and greater than 50% of that time was spent counseling and coordinating care. Bri Kraft MD Review of Neuroimmunological Disease Primary Neurological Diagnosis: RRMS Date of Symptom Onset: 03/06/15 Year of diagnosis: 2015 Relapse History 2015 Optic neuritis Most Recent EDSS: Year of insidious progression: Multiple-Sclerosis - Disease-Modifying Therapies Start Year: Stop Year: Multiple-Sclerosis - Disease-Modifying Therapies Most Recent MRI Brain: 04/15/21 Most Recent MRI Cervical Spine: 04/02/19 Most Recent MRI Thoracic Spine: 05/14/17 MRI Changes 2020 2020 2019 2018 2018 brain brain brain brain cervical spine Number of New lesions: 0 0 0 0 Most Recent OCT: CSF Studies: 2018 2014 unknown yes Other Testing: Ethnicity: Dominant Hand: Highest Level of education (in years): Disease Course without activity (no recent relapse and no new MRI lesions) without worsening (an increase in neurological function as a result of either relapses or progressive disease) without progression (slow progressive accumulation of neurological dysfunction independant of relapses) stable Chief Complaint: Multiple Sclerosis Follow Up Visit from 04/15/21 INTERIM HISTORY Odessa Ireland is here for follow up for . Life changes: No Medical history/non-MS medication changes: No Since last visit, she stable chronic symptoms She reports that she is not having any new symptoms. There is nothing that she can not do now that she could do it the past. She has electrical pain about a month ago. This used happen every once in a while. She reports that it happens a few times per week. I can last hours to minutes. She reports that nothing provoke. She reports that sometimes laying down or stand is better. Sometimes stretching out helps. The pain start in the lower pack and it radiates to her lower foot. She reports that it is not getting worse. She reports that the pain membership advisor get up to a 9/10. ' She is getting an arch type cramp. She reports that this started a few weeks ago. She reports that it will cramp up. It happen about 6 times in the past week. It can last 30 minutes. She reports that it can wake her up from a sleep. Energy levels are generally poor . She reports that she is not sleep a lot and she is not eating well. She reports that she is anxious and it prevent her sleep. She will nap sometimes. Mood is worse than before . Cognition is fair / acceptable. She is forgetting to do little things. Bladder is good. She is on mcc disability She is involved in regular exercise / physical conditioning. She does a paddle thing that she uses. She is currently supplementing vitamin D3. She is not using tobacco. Current disease modifying therapy: . Tolerability: no significant issues Adherance: excellent Safety monitoring: labs Infections: None (no UTI's, URI, etc.) Symptom Inventory: Review of systems performed by the ENDBANDER/RN/medical intern, personally reviewed and viewable in the current patient encounter. [facility] ROS - 07/14/21 1139 General Change in weight No Fever No Chills No Night Sweats No Cough No Shortness of Breath No Joint pain / swelling No Muscle pain / cramps Yes Chest pain No Palpitations No Nausea / Vomiting No Neurologic Double vision No Blurred / decreased vision Yes Difficulty swallowing No Difficulty with speech No Numbness / tingling Yes Painful skin sensations Yes Muscle weakness Yes Heat sensitivity Yes Motor fatigue Yes Incoordination/ poor balance Yes Difficulty walking Yes Recent Falls Yes L'hermitte No Difficulty with thinking and memory Yes Pathologic fatigue Yes Depression Yes Anxiety Yes Urinary urgency No Urinary frequency No Urinary retention / hesitancy No Recent Urinary Tract Infections No Bowel complaints No Sexual Dysfunction No Poor sleep Yes Headaches Yes Recent Seizures No 14 systems reviewed and negative except for as noted above. Past Medical History: Diagnosis Date Anxiety Fatty liver GERD (gastroesophageal reflux disease) Multiple sclerosis (HCC) Neuropathic pain Pseudoseizure PTSD (post-traumatic stress disorder) Past Surgical History: Procedure Laterality Date SECTION, LOW TRANSVERSE CHOLECYSTECTOMY HYSTERECTOMY OOPHORECTOMY TONSILLECTOMY TUBAL LIGATION Social History Tobacco Use Smoking status: Never Smoker Smokeless tobacco: Never Used Vaping Use Vaping Use: Never used Substance Use Topics Alcohol use: Yes Comment: rarely, Drug use: Never Family History Problem Relation Age of Onset Ovarian cancer Mother Heart disease Mother Diabetes Mother Depression Mother Cancer Father Heart disease Father Hypertension Father Migraines Father Stroke Father Post-traumatic stress disorder Father Hypertension Brother Breast cancer Maternal Aunt Colon cancer Maternal Uncle Lupus Paternal Aunt Dementia Maternal Grandmother Memory loss Maternal Grandmother Dementia Paternal Grandmother Memory loss Paternal Grandmother Lung cancer Other Lupus Paternal Aunt Bone cancer Maternal Aunt Seizures Neg Hx Multiple sclerosis Neg Hx Allergies Allergen Reactions Codeine Other (See Comments) Confusion, tried to jump out of a window GENERAL PHYSICAL EXAMINATION Vital Signs: Blood pressure 127/85, pulse (!) 109, weight 121.5 kg (267 lb 14.4 oz), not currently . General Appearance: in no apparent distress, well nourished, conversant, cooperative Eyes: Anicteric sclerae. Moist conjunctivae. No lid edema noted. HENT: Head atraumatic, normocephalic. Oropharynx clear. Moist mucous membranes. Neck/ Thyroid:trachea midline. Supple. No massess. No thyromegaly. CV: RRR, , no murmurs, rubs, clicks, or gallops, Palpable pulses throughout and no lower extremity edema Lungs: Normal respiratory effort. No intercostal retractions. No dyspnea during conversation. Abdomen: soft, non-distended Extremities: no clubbing, cyanosis, pedal edema, ulcer nor wound noted. Skin: warm, dry, no rash, no ecchymoses, no petechiae noted Pysch: normal mood, behavior, speech, dress, and thought processes MS PERFORMANCE TESTING CLINICAL TESTING VALUE Binocular Visual acuity (Hi: range 13-60, median 59) (Lo: range 0-55, median 32) Low Contrast: High Contrast: Symbol Digit Modality Test (range 4-86, Median 46) Total Number Correct: Nine Hole Peg Test (range 13.4-8.3; median 26.5) Right Hand Avg (seconds): Left Hand Avg (seconds): Dominant Hand: Timed 25 Foot Walk (range 0.1-52.47; Median without aid 7.1) Average Trial Time (seconds): AFO Choice: Walking Aid Choice: VALUE Visual acuity OD: 20/120 w/contacts OS: 20/100 w/contacts Timed 25 Foot Walk (Manual if MSPATHS issue) Trial 1: (Historical) Trial 2: 9 Hole Peg test (Manual if MSPATHS issue) Right 1st: (Historical) Right 2nd: Left 1st: (Historical) Left 2nd: NEUROLOGIC EXAMINATION MENTAL STATUS: intact to casual conversation. Normal language function regarding fluency and comprehension. Normal mood and affect. CRANIAL NERVES: CN II: Visual tamayo full to confrontation CN III, IV, : Eyes are aligned in primary gaze. Extra ocular movements intact without nystagmus. Normal convergence. No GEOFF noted. No ptosis noted. CN V, VII: Sensation and strength are intact and symmetric. CN VIII: Hearing intact to finger rub bilaterally CN IX, X: Palate elevated symmetrically. No dysarthria noted. CN XI: Sternocleidomastoid and trapezius strength is full bilaterally. CN XII: The tongue protrudes in the midline. No fasciculation or atrophy appreciated. PYRAMIDAL: Normal Bulk and Tone, Satelliting not noted. Manual Muscle Testing: poor effort on right side given. The patient is stronger when indirectly testing her strength compared to when I am directly testing her strength which would suggest functional overlays D B T WE FF IO HF KF KE DF PF Right 5- 4 4 5 5 5- 4 2 2 1 1 Left 5 5 5 5 5 5 5 5 5 5 5 Modified Michael Score: B T Hip add KF KE DF PF Right 0 0 0 0 0 0 0 Left 0 0 0 0 0 0 0 SENSORY:light touch decreased in rigth side below the neck, vibration decreased in right side below the neck, proprioception normal in all four extremities and temperature decreased in left side COORDINATION: saccadic intrusions noted during smooth pursuit, There is moderate truncal ataxia noted., FNF, HTS, and Rapid alternating movements all suffer from exagerated relatively chaotic movements that are not consistent with ataxia or tremor. GAIT: Stand from seated position: requires arms, asymmetric, favoring right leg, Station: wide based, Immediate Standing Balance: stable and requires support/device, Romberg Testing: stable with eyes open, but sways with eyes closed, Stride length:leraching, and non-rhthymic, Arm Swing:decreased on right and left, Knee swing: decreased on right but improves with distractions , Heel Strike: absent on right but improves with distraction, Turn: normal DIAGNOSTIC TESTING LABS Abstract on 06/25/2021 Component Date Value Ref Range Status JCV Ab by Inhibition Interpretation 06/18/2021 Negative Negative Final Stratify JCV Ab (with Index) w/RFL* 06/18/2021 0.08 Final JCV Antibody 06/18/2021 Negative Negative, Indeterminate Final Abstract on 06/24/2021 Component Date Value Ref Range Status JCV Ab by Inhibition Interpretation 06/18/2021 Negative Negative Final Stratify JCV Ab (with Index) w/RFL* 06/18/2021 0.08 Final JCV Antibody 06/18/2021 Negative Negative, Indeterminate Final Abstract on 03/26/2021 Component Date Value Ref Range Status JCV Ab by Inhibition Interpretation 03/20/2021 Negative Negative Final Stratify JCV Ab (with Index) w/RFL* 03/20/2021 0.18 Final JCV Antibody 03/20/2021 Negative Negative, Indeterminate Final Lab Draw on 03/20/2021 Component Date Value Ref Range Status Hepatitis B Surface Ag 03/20/2021 Negative Negative Final Hep B S Ab 03/20/2021 Negative Negative Final HBe Antibody 03/20/2021 Positive* Negative Final Hepatitis Be Antigen 03/20/2021 Negative Negative Final HIV 1-2 Screen 03/20/2021 Negative Negative Final Syphilis Treponemal Ab 03/20/2021 Negative Negative Final ANDREW Screen 03/20/2021 8 0 - 19 Units Final RINA 03/20/2021 <1:80 <1:80 Final TSH 03/20/2021 1.28 0.27 - 4.20 mcIU/mL Final T4 03/20/2021 7.0 4.5 - 12.0 mcg/dL Final T4, Free 03/20/2021 0.9 0.7 - 1.7 ng/dL Final T3 03/20/2021 167 72 - 170 ng/dL Final T3, Free 03/20/2021 3.4 2.0 - 4.4 pg/mL Final Vit D, 25-Hydroxy 03/20/2021 24* 30 - 100 ng/mL Final Varicella IgG 03/20/2021 Immune Final M. tuberculosis by Quantiferon in * 03/20/2021 Negative Negative Final M. Tuberculosis Report 03/20/2021 See scanned report for additional information Final Total Protein 03/20/2021 7.4 6.0 - 8.0 g/dL Final Albumin 03/20/2021 4.5 3.2 - 5.2 g/dL Final Total Bilirubin 03/20/2021 0.3 0.0 - 1.3 mg/dL Final Bilirubin, Direct 03/20/2021 <0.1 0.0 - 0.4 mg/dL Final Alkaline Phosphatase 03/20/2021 125 40 - 140 U/L Final AST 03/20/2021 64* 0 - 45 U/L Final ALT 03/20/2021 90* 0 - 40 U/L Final HTLV-I/II Ab Screen 03/20/2021 Negative Negative Final Lyme Ab 03/20/2021 Negative Negative Final C22:0 03/20/2021 102.6* <=96.3 nmol/mL Final C24:0 03/20/2021 74.7 <=91.4 nmol/mL Final C26:0 03/20/2021 0.89 <=1.30 nmol/mL Final C24:0/C22:0 03/20/2021 0.73 <=1.39 ratio Final C26:0/C22:0 03/20/2021 0.009 <=0.023 ratio Final Pristanic Acid 03/20/2021 0.19 <=2.98 nmol/mL Final Phytanic Acid 03/20/2021 0.99 <=9.88 nmol/mL Final Pristanic/Phytanic 03/20/2021 0.19 <=0.39 ratio Final Comment 03/20/2021 See Ref Lab Comment Final B12 03/20/2021 481 232-1,245 pg/mL Final Immunofixation, Serum 03/20/2021 Normal Normal Final SIFIX Interpretation 03/20/2021 No paraproteins detected. A negative serum immunofixation and/or serum protein electrophoresis is insufficient to rule out a monoclonal protein. Recommend serum free light chains if clinically indicated. Reviewed by Pathologist: Apolonia Wiggins MD. Final Total Protein 03/20/2021 7.5 6.0 - 8.0 g/dL Final Albumin (ELP) 03/20/2021 3.7 3.1 - 5.5 g/dL Final Alpha 1 03/20/2021 0.2 0.2 - 0.5 g/dL Final Alpha 2 03/20/2021 0.8 0.4 - 1.1 g/dL Final Beta Globulin 03/20/2021 1.4* 0.6 - 1.3 g/dL Final Gamma Globulin 03/20/2021 1.3 0.6 - 1.8 g/dL Final Reviewed by: 03/20/2021 Reviewed by Pathologist: Apolonia Wiggins M.D. Final SPEP Interpretation 03/20/2021 Increased beta region. Serum protein electrophoresis is insufficient to rule out a monoclonal protein. Recommend serum immunofixation, and serum free light chains if clinically indicated. Final Hep B Core Total Ab 03/20/2021 Negative Negative Final WBC 03/20/2021 9.25 4.50 - 11.00 K/mcL Final RBC 03/20/2021 5.15 4.00 - 5.20 M/mcL Final Hemoglobin 03/20/2021 14.4 12.0 - 16.0 g/dL Final Hematocrit 03/20/2021 44.1 36.0 - 46.0 % Final MCV 03/20/2021 85.6 80.0 - 100.0 fL Final MCH 03/20/2021 28.0 26.0 - 34.0 pg Final MCHC 03/20/2021 32.7 31.0 - 37.0 g/dL Final Platelets 03/20/2021 336 150 - 400 K/mcL Final RDW - CV 03/20/2021 13.8 11.6 - 14.8 % Final MPV 03/20/2021 8.8* 9.4 - 12.4 fL Final Neutrophils 03/20/2021 41.5 % Final Lymphocytes 03/20/2021 46.3 % Final Monocytes 03/20/2021 9.3 % Final Eosinophils 03/20/2021 2.1 % Final Basophils 03/20/2021 0.6 % Final IG Percent 03/20/2021 0.20 % Final Neutrophils Abs 03/20/2021 3.84 1.70 - 7.00 K/mcL Final Lymphocytes Abs 03/20/2021 4.28* 0.90 - 4.00 K/mcL Final Monocytes Abs 03/20/2021 0.86 0.30 - 0.90 K/mcL Final Eosinophils Abs 03/20/2021 0.19 0.00 - 0.50 K/mcL Final Basophils Abs 03/20/2021 0.06 0.00 - 0.30 K/mcL Final IG Absolute 03/20/2021 0.02 0.00 - 0.30 K/mcL Final Nucleated RBC 03/20/2021 0.0 % Final Nucleated RBC Abs 03/20/2021 0.00 0.00 - 0.00 K/mcL Final ] documented in this encounter [facility] 07-14-2021 Instructions Bri Kraft MD - 07/14/2021 12:24 PM EST Images from the original note were not included. 1. I recommend continuing MS DMT with Tysabri (natalizumab) 2. I recommend checking the following labs/tests for safety monitoring while on MS DMT: o Lab: CBC, hepatic panel and KATIE virus Ab 3. I recommend MR head w and w/o contrast , MR C Spine w and w/o contrast and MR T spine w and w/o contrast due in 3 month(s) to be reviewed at the next visit. 4. For MS Symptom Management, I recommend the following plan: o - that we continue current symptomatic medications without change. 5. We recommend a regular exercise program. 6. We will check a viamin D level. Our goal level is between 50-100. . 7. I recommend checking the following labs/tests for general health screening: o Will defer to primary care 8. I recommend making the following referrals: o Physical therapy for low back pain 9. MS patients over 50 are at increased risk for accelerated bone loss (osteopenia or osteoporosis). , Bone density testing not indicated at this time. 10. Smoking and second hand smoke lead to worsening of MS. If you are smoking, we recommend choosing a quit date. Once you have chosen a quit date, we will discuss medication and alternative therapies to help you quit. I recommend she contact 1800-QUIT NOW for free assistance with smoking cessation counseling and nicotine replacement therapy. PLAN REGARDING MANAGMENT OF FUTURE MS RELAPSES 1. We discussed the concept of an MS relapse and our center's approach to managing MS relapses today. 2. We discussed the concept of a pseudo-MS relapse where MS patients will often experience a transient worsening of baseline neurological symptoms in the setting of fever, infection, and severe psycho-social stressors. 3. We recommend that Odessa Ireland contact our office in the event of any new or worsening neurological symptoms lasting longer than two days. PLAN REGARDING DISEASE MODIFYING THERAPY 1. We discussed the natural history of relapsing remitting multiple sclerosis and the realistic goals of disease modifying therapies (DMT) to decrease the frequency and severity of MS attacks and decrease neurological worsening. 2. We shared our belief that consistent DMT use in relapsing forms of multiple sclerosis is one of the most important tools we use to improve outcomes. We stress the importance of DMT adherence and the need for constant open communication between the patient and care team. 3. We briefly eviewed relevant mechanism of action, efficacy, safety and tolerability of several multiple sclerosis DMTs based on both clinical trial data and our MS centers experience. 4. We also briefly discussed clinical trials for relapsing remitting multiple sclerosis at [facility]. For more information about our clinical trial opportunities please contact your MS provider. Odessa Ireland's neurological functioning and her response to DMT will assessed through several lines of evidence collected before each clinic visit. This includes her responses to MS symptoms specific questionnaires and her performance on MS specific clinical tests of vision, thinking, hand function and walking speed. Our center requires Odessa Ireland to always arrive at least 30 minutes before each clinic appointment to allow time for these tests. Response to disease modifying therapy will also be assessed through MRI scans of the brain and sometimes the spinal cord. This is needed to identify sub-clinical disease activity and her response to her disease modifying therapy. Optical Coherence Tomography (OCT), which measures the retinal nerve fiber layer (RNFL) of the eye, is another complementary way to measure MS disease activity. PLAN RELATED TO CLINIC FOLLOW UP 1. I will schedule a follow-up visit in No follow-ups on file. . 2. Please arrive 30 minutes before your appointment to allow time to complete paperwork and MS specific testing prior to seeing your MS specialist. If you arrive late you may not be able to be seen that day and may need to reschedule your visit. 3. Please sign up for the e-volo patient portal. Ricebook gives you controlled access to the same Epic medical records your [facility] MS care team use, via browser or mobile justin (for iOS and Android). Its allows you to review some of your testing results, and provides you with a communication link to your care providers. 4. Many of your test results can be reviewed online at any time through Ricebook. Your MS care team will review all results, but will only contact you if a finding requires urgent medical attention. Your MS Care team will always discuss your test results with you [id number] at your next clinic. PATIENT AND CAREGIVER EDUCATION 1. People with MS who smoke tend to have a faster progression of disease compared to those that do not. Also, people with clinically isolated syndrome who smoke are at risker to convert to MS compared to non-smokers. 2. We recommend that all MS patient participate in regular exercise, to the extent that they are able. Swimming, water aerobics and yoga are excellent considerations. 3. A healthy diet is beneficial in MS. We recommend the following: A. Calorie and content (simple carbohydrates, fats) control B. Share portions C. Eat SLOWER D. Salad dressing on the side E. Watch out of alcohol calories F. Drink a glass of water before each meal 4. Low levels of vitamin D have been associated with increased MS disease activity. Higher vitamin D levels have been associated with decreased MS disease activity. Our goal vitamin D level in our MS patients is generally between 50-100. 5. Multiple Sclerosis is an independent risk factor for accelerated bone loss (osteopenia/osteoperosis) and pathologic fractures. We recommend that all people with MS over age 50 have regular bone density testing with their PCP. 6. People with MS and their family must use caution when reading anything on the Internet about MS. Information on the Internet may be inaccurate or outdated, even if it looks real . We encourage you to discuss with us information you read on the internet, to help you clarify if it is accurate and if it applies to you specifically. Below are list of links to MS educational sources online: [facility] (www.Advanced Telemetry.rumr le word: multiple sclerosis) Multiple Sclerosis Association of [place] (www.mymsaa.org) Multiple Sclerosis Foundation (www.msfocus.org) Can do Multiple Sclerosis ( www.mscando.org ) National Multiple Sclerosis Society (www.nationalmssociety.org) [facility] (www.mscenter.[facility]) Gather MS: linking people with MS to local community resources: https://www.gatherms.com/ 7. For information on the [facility]'s clinical trial program please talk to your MS provider. 8.Support Groups: MS Groups take place at [facility] and Resource [place] at [facility]: [address] [place] [address]. Parking vouchers will be provided. All support and wellness opportunities will be offered free of charge at the [facility] at [facility]. The [facility] is located in the Neuroscience [address] Pre-registration is required unless otherwise noted. Call [phone] or e-mail: [email or web address] Call to confirm dates/times. [facility] 2020 MS Educational Series Presentations by Drs. Nguyen Lynn, Isael Randall, Bri Kraft, Shar Kraft and other MS team members. All presentations: Wednesday of the month October through June (May is Wednesday due to holiday) from 6-7 PM (immediately following the Life with MS support group meeting). Light refreshments will be served. Caregiver/General Manager Food Support Group: offers opportunities to connect with others, receive education and support, as well as learn about community resources. Meets of each month 2-3 pm or 6-7pm. Art Therapy: designed to provide a means to help you relax through creative activities, as well as express and explore your emotions and concerns. Led by a Registered Art Therapist. Meets Wednesday of each month: 11am-12:30p and Wednesday of each month: 6pm-7:30pm Music Therapy: a fun and useful tool to maximize neurological function and connect mind, body and spirit. Led by a Board Certified Neurologic Music Therapist. Meets and of each month: 1pm-2pm and Wednesday: 6:30-7:30pm Neuro Choir: Singing benefits your health, recovery and well-being. The choir is led by a Board Certified Neurologic Music Therapist. Meets : 2pm-3pm and Wednesday of each month: 6:30-7:30pm Neuro Yoga: learn and enhance your yoga skills. Opportunities include: caregiver class, 6 week intro series, chair yoga, and a class for experienced yoga practitioners. Call for schedule. Behavioral Health Support Group: For adult friends/family members of adults with mental illness. Receive support, share challenges, and learn about resources. Every Wednesday: 4:30pm-5:30pm. Registration not needed. For more information on the [facility] patient and family support groups and [facility] patient programs please call [phone] or email [email or web address]. We believe that consistent disease modifying therapy adherence is one of the most important tools to combat relapsing remitting multiple sclerosis We also believe in the need for constant open communication between the patient and care team about disease modifying therapy tolerance. 11. Education regarding disease modifying therapy discussed today: Education regarding NATALIZUMAB (Tysabri) Education regarding NATALIZUMAB (Tysabri), disease modifying therapy administered as an IV infusion once every 28 days or 42 days after 6 months. Mechanism of Action: Natalizumab is a monoclonal antibody against VLA4 that prevents immune cells from leaving the blood stream to enter into the brain (causing inflammatory damage in the setting of MS). Efficacy Data: Efficacy data is derived from the AFFIRM and SENTINEL trials, the mcc follow up studies, and our own clinical experience using natalizumab in our patients since 2003. Relapses: In the AFFIRM trial, natalizumab (ARR 0.22) decreased relapse rates by 68% compared to placebo (ARR 0.67). Disability: Compared to placebo, NTZ lowed risk of 3 month confirmed disability progression by 42% and reduced flynn+ enhancing lesions by 92%. ANTHONY: In post hoc analysis of the AFFIRM trial, ANTHONY (no evidence of disease activity: no attacks, no 3 month confirmed disability progression on EDSS, no new / enlarged T2 lesions and no new flynn+ enhancing lesions for 24 months) was achieved in 37% of natalizumab treated patients, compared to 7% of placebo patients. In aggressive patients (2+ attacks and 1+ flynn lesion in year prior to trial) 27% of natalizumab treated patients vs. 3% of placebo patients achieved ANTHONY. CDI: Confirmed disability improvements (CDI) was seen in 30% with NTZ vs 19% with placebo. TYSABRI ASSOCIATED PML RISK 1. Risks of Tysabri include a potentially fatal infection called progressive multifocal leukoencephalopathy (PML) that is caused by the re-activation of the KATIE virus. Roughly 20% of the cases were fatal. Many of the surviving patients suffered neurological deficits with only ~20% able to return to work after treatment. We can determine if you have been previously exposed to the JCV through the JCV antibody test. 2. Risk factors for tysabri related PML include JCV antibody positive status, prior immunosuppressive therapies, and number of months on tysabri. Understanding risk of tysabri related PML risk is calculated in the following manner: JCV ANTIBODY NEGATIVE patients have never been exposed to the JCV and carry a risk of PML is <0.09/999. The risk to convert from JCV antibody negative to JCV antibody positive is roughly ~5-7% each year. We monitor for seroconversion with JCV antibody testing every 3 months. JCV ANTIBODY POSITIVE and have had prior immunosuppressive therapy, are in a higher PML risk category. Risk of PML is as follows: Natalizumab Exposure (months) Risk per 1000 Risk as % 1-24 2 0.2 25-48 11 1.1 49-72 9 0.9 JCV antibody positive and HAVE NOT HAD prior immunosuppression, risk of PML is further refined depending on the Optic Density (OD). Considering Optic Density (OD), percentage risk of PML is as follows: Index <0.9 >0.9 <1.5 >1.5 1- 12mo 0.001 0.01 0.02 13-24mo 0.005 0.03 0.09 25-36mo 0.02 0.08 0.26 37-48mo 0.04 0.2 0.68 49-60mo 0.05 0.24 0.79 61-72mo 0.06 0.3 1.0 3. In JCV antibody positive patients, we often obtain more frequent MRI scans to screen for asymptomatic PML lesions. MRIs may occur twice to four times annually per clinician/patient preference. 4. If symptoms of PML or concerning MRI changes are found, we will stop natalizumab and obtain CSF (spinal fluid) for JCV PCR testing, and possibly obtain further MRI scans. If we are concerned for PML we will recommend inpatient hospital admission for 7 total plasma exchanges (done every other day) and high dose steroids to help stave off IRIS. ' Sincerely, Bri Kraft MD @DATE@ documented in this encounter [facility] 05-21-2021 History of Present illness Narrative Pt reviewed Tysabri medication guide, denies any questions. Tysabri education included in AVS, reviewed with pt, verbalized understanding. documented in this encounter [facility] 05-21-2021 Instructions Michelle Cotto RN - 05/21/2021 11:58 AM EDT Notify your physician immediately if you become , develop any medical condition that can worsen your immune system (such as HIV or cancer), or if you experience sudden fever, headache, confusion, and allergic reaction symptoms such as itching, hives, or shortness of breath. PML is a rare condition that patients who are KATIE Virus positive and receiving Tysabri MAY be at risk for. Symptoms of PML may include: clumsiness, progressive weakness, visual or speech changes, personality changes, confusion. Contact your neurologist immediately with any of these symptoms. If you have a fever, infection, or are taking antibiotics or other medication for a virus or infection during the week you are scheduled for an infusion, please call your doctor to see if your infusion appointment needs to be postponed. Tysabri may cause you to have a weakened immune system, frequent hand washing or use of hand plant operations manager is advised. It is recommended that you stay one hour after your infusion for observation to ensure you do not have an infusion related reaction. To cancel or reschedule an infusion appointment you may call the infusion center directly at [phone]. For questions about the TOUCH program please call or go to [email or web address]. documented in this encounter [facility] 03-20-2021 History of Present illness Narrative JAYY visited with pt who was accompanied by her sister. SW introduced self and explained SW role and availability. Pt presented as pleasant and easily engaged in conversation. She does not work - receives SSDI. Dual eligible for Medicare/Medicaid. Pt shared she is social. She is well connected with in-person and on-line MS groups. She spends time with her friends, kids, family. She has formal behavioral health supports in place: counseling and psychiatry support. Pt reported she is pleased with these services; no need for changes. Pt is able to drive locally and do a little babysitting. Pt denied having any unmet, needs, worries, concerns. Her sister agreed. SW provided pt with an MS resource folder. Pointed out various MS clinic and [facility] offerings that are virtual since pt does not like close by. Pt was appreciative for the info. JAYY will continue to follow. Pt seen today in MS clinic for therapy screen. Limitations in gross functional mobility: impaired balance, difficulty walking, impaired endurance, need for DME to assist with mobility Device/Equipment: straight cane Falls in past 6 months: can't count this year, 2 in the past week Fatigue: yes Current routine exercise program: UE and LE exercises and balance Most recent therapy services: PT, OT, and ST prior to COV[facility]Y in ; 2 visits with PT earlier in 2020 Functional Mobility Assessment: Pt with increased effort for RLE AROM and giveaway weakness with attempts to MMT. Pt ambulates with inc reliance on straight cane and dec R knee extension in stance however no instability overall; dec gait speed with horizontal head turns. Cognitive Questions: Have you noticed a change in memory, attention (keeping your attention, completing 2 tasks at once, alternating your attention between task)? : yes--uses lists and reminders Therapy needs identified: outpatient neuro PT, OT, and ST Desired location: External therapy services desired For external services: Hard copy of therapy orders to be mailed to patient Education provided: HEP Adherence and Diagnosis specific education regarding role of therapy No charge for PT screen this date. Will continue to follow at MS clinic and assess for PT related needs. Pt seen today in MS Clinic for therapy screen. Most recent therapy services: PT/OT/ST last year, cut short by pandemic. Cognition/language screen: reports decreased STM, states she has strategies such as posting pictures and lists around the house Self-care screen: modified independent with basic ADLs. Drives locally, denies difficulty with driving despite presenting with significant RLE weakness. Upper extremity screen: R UE weakness Falls in past 6 months: multiple Device/Equipment: cane, bedside commode, ampoule filler Functional Mobility Assessment: see PT note. Giveaway weakness R LE. Current routine exercise program: none specifically. Pt has HEPs from all disciplines but does not perform consistently per sister, who is an OT assistant import manager. Therapy needs identified: pt would benefit from all three therapy disciplines Education provided: importance of continued exercise, DRIVE program No charge for screen this date. 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 [facility] NEW CONS[facility] 03/20/2021 I had the pleasure of evaluating Odessa Ireland in initial outpatient neurologic consultation at [facility] [place] today, 03/20/2021. As you know, she is a pleasant 40 y.o. handed female referred by Dr. Vianney pascual. provider found for evaluation of and treatment recommendations for Multiple Sclerosis. She is accompanied today by her sister(s) who help participate in her history. In preparation for today's consultation I have personally reviewed hard copies of neuroimaging studies, relevant clinic notes and lab tests, as well as the [facility] new patient questionnaire. Chief Complaint: possible Multiple Sclerosis IMPRESSION: 1. RRMS Odessa Ireland is a pleasant 40 y.o. handed female referred for evaluation of and treatment recommendations for Multiple Sclerosis. Given the patient's exam, I cannot currently confirm the diagnosis of multiple sclerosis independently. However, based off her records, the diagnosis is almost certainly multiple sclerosis. It is hard for me to make an independent recommendations on this patient. I do not have the patient's records from her most recent neurologist and her exam is difficult to interpret. Starting with memory, the patient informed me that she has had neuropsych testing done and has a profound cognitive impairment. It would be useful for me to get the records to review. The patient is on Aricept for this. I would advise against continuing Aricept for this patient. Aricept has not been shown to be beneficial in individuals with cognitive issues and multiple sclerosis. However, if her neuropsych testing has shown evidence for potential early onset Alzheimer's pathology, Aricept would then would have use. Regards to her disease modifying therapy, as best as I can tell, it does not appear that the patient has had new lesions over the past few years since being on Tecfidera. Therefore, it would be very atypical for the patient have multiple flares and not developed new lesions. While not absolutely true, a population of patients patient on average developed 5 new lesions of the brain for each relapse they have. While I do not have an MRI to review at this point, if they truly are stable, then I think that escalation of her therapy may not lead to a benefit in her. With that said an argument could be made to change her disease modifying therapy based off the patient's preference. Tecfidera classically is not the easiest medication to tolerate. I will send screening blood work to determine what would be safe. I will also get an OCT to serve as a baseline. I will get an MRI of the brain in order to determine if she has any new activity. Depending on the work up, I can make recommendations to the local neurologist about what medication I would change her to if they feel changes warranted. In regards to the patient's flares, they seem based off description to be more consistent with pseudorelapses. As stated it would be rare for patients to have as many episodes as she has and not develop new lesions. Moreover, it would also be rare for the patient to have a flare of the disease and not develop new symptoms with a relapse. It seems that these episodes can be provoked by acute stress, exertion and her posttraumatic stress disorder, which would be suggestive of a pseudorelapse. I would advise against treating these acute events if she does not develop a novel symptom or does not have MRI evidence of a new lesion. My concern for the patient is that steroids can make people feel better in general. However, there are many long-term negative side effects with continued steroids use. For that reason, I would try to limit the use of steroids and ACTH in her. In regards to the patient's exam, it is difficult to determine how disabled the patient truly is. The patient's exam is significantly inconsistent. Many of the symptoms that she complained of do not necessarily have objective findings on exam. I see from previous records the patient carries a diagnosis of somatoform disorder. I feel that many of her symptoms could be related to this. I am glad to hear that the patient is in psychiatry and psychology. However, it may be necessary to consider a second opinion given how severe the patient's somatoform symptoms are. Finally, I do not have records of this, but the patient reports that she has an abnormal EEG. If this is the case, then I would agree with AED management. However, given her significant psychiatric history, I would strongly encourage the patient to be switched to another AED. Keppra is known to worsen psychiatric issues. It may be worthwhile considering a referral to a tertiary or quaternary epilepsy center. I will make referral to PT and OT to help with her symptoms. I will make referral to social work to help with a cooling vest. I will have the patient return to clinic in 2 to 3 weeks. PRIMARY NEUROLOGICAL DIAGNOSIS Her clinical history is notable for episodes of discrete TIRE MANAGER dysfunction that are consistent with MS attacks.. Her neurological examination, as detailed below, is notable for left optic palor, right sided weakness Her available neuroimaging reportedly consistent with MS Her cerebrospinal fluid results, as noted below, demonstrate is supportive of MS and suggestive of an overly active immune response in the central compartment. Testing for entities that can mimic multiple sclerosis have all been unrevealing. Taken as a whole, diagnosis is uncertain DISEASE PROGNOSIS Certain demographic data, clinical data related to MS attacks, and MR imaging data may suggest higher risk for aggressive/active MS disease. For Odessa Ireland, concerning prognostic demographic features include: low vitamin D levels For Odessa Ireland, concerning prognostic features of early MS disease activity include: incomplete recovery from MS attacks, early motor symptoms, disease activity despite disease modifying therapy ASSOCIATED DIAGNOSES Currently Odessa Ireland is experiencing the following active medical problems:disease activity, disease progression I recommend the following plan: PLAN 1. In order to complete the diagnostic work up a. Given that MS is a dynamic disorder that changes on MRI over time, follow up MRI of the brain will be very enlightening. Seeing new lesions suggestive of MS, or the lack of new lesions will help clarify his likelihood of having MS. We will order MRI of the brain with and without gadolinium using multiple sclerosis protocol on a 3T scanner. b. We will obtain screening laboratories to help rule out connective tissue, metabolic and infectious etiologies that may mimic multiple sclerosis or worsen neurological functioning. c. We will obtain laboratories to assist in our selection of MS disease modifying therapies. d. We will obtain Optical Coherence Tomography (OCT) to evaluate the retinal nerve fiber layer (RNFL) to both serve as a baseline as well as to evaluate visual complaints/disorder of visual pathway 2. In regards to disease modify therapy a. We recommend starting disease modifying therapy with Tecfidera (dimethyl fumarate). 3. For MS Symptom Management, I recommend the following plan: o - that we continue current symptomatic medications without change. 2. We recommend a regular exercise program. 3. We will check a viamin D level. Our goal level is between 50-100. . 4. I recommend checking the following labs/tests for general health screening: o Will defer to primary care 5. I recommend making the following referrals: o Physical therapy for balance o Occupational therapy for memory o Social work for new patient 6. MS patients over 50 are at increased risk for accelerated bone loss (osteopenia or osteoporosis). , Bone density testing not indicated at this time. 7. Smoking and second hand smoke lead to worsening of MS. If you are smoking, we recommend choosing a quit date. Once you have chosen a quit date, we will discuss medication and alternative therapies to help you quit. I recommend she contact 1800-QUIT NOW for free assistance with smoking cessation counseling and nicotine replacement therapy. No follow-ups on file. If new questions or concerns arise prior to your next visit, please call our office for urgent concerns (emergency room) or for new symptoms lasting > 24 hours or send a Andera message for non-urgent concerns as you may need to be seen earlier. A total of 25 minutes was spent face to face with the patient and greater than 50% of that time was spent counseling and coordinating care. Bri Kraft MD DISEASE SUMMARY Review of Neuroimmunological Disease Primary Neurological Diagnosis: RRMS Date of Symptom Onset: 03/06/15 Year of diagnosis: 2015 Relapse History 2015 Optic neuritis Most Recent EDSS: Year of insidious progression: Multiple-Sclerosis - Disease-Modifying Therapies Start Year: Stop Year: Multiple-Sclerosis - Disease-Modifying Therapies Most Recent MRI Brain: 09/20/20 Most Recent MRI Cervical Spine: 04/02/19 Most Recent MRI Thoracic Spine: 05/14/17 MRI Changes 2020 2019 2018 2018 brain brain brain cervical spine Number of New lesions: 0 0 0 0 Most Recent OCT: CSF Studies: 2018 2014 unknown yes Other Testing: Ethnicity: Dominant Hand: Highest Level of education (in years): HISTORY History of Present Illness: The patient reports that she had issues with seizures back in 2014. The patient reportedly developed optic neuritis in 2014. She reports that she went to the emergency room due to the black spots in her eyes. The first day it was a big spot in her vision. Over the next few days The patient developed new black spots in her eyes. Her vision got dark over a week. She was referred to a neurologist. Who referred to ophthalomologist who recorded. She received a MRI of head in March showing active plaques. She says that she got a spinal tap in 2016, however, her records suggest that she had a spinal tap with inflamatory CSF. Her vision reportedly improved over 3 weeks. She was treated with a dose pack of steroid. . The patient developed optic neuritis in 07/2016. She had difficulty seeing out of the left. She received high dose steroids. It lasted for about 3 months. Per the patient she had a ministroke in March of 2017. She was found down. She was weak in her left arm and leg. She went to the emergency room and it was felt that she had mini stroke. She was in the hospital for a week. She was given steroids for IV. She was told that she also had infected. She reports that she was diagnosed with MS at this time. felt now to have multiple sclerosis started on tecfidera. She reports that in 05/2017, she developed weakness in her arms and numbness. She also had headache. She weakness and eventually fell. She was given steroids and physical therapy. She was started on steroids. She has never fully recovered from that episode. She reports that they started tecfidera in March of 2017. She reports that she had a neuropscy evaluation done. She reports that her Tecfidera stop working as well. She started falling more often. She was having flairs. She went to her nurse practioneer who recommends that she come here for a second opinion Current Symptom: Flares: She will develop complete weakness on her right side. She reports that she will go really weak. She will also get worsening brain fog. She will be somewhat incoherent. She reports that these episodes could last for about two weeks. She reports that if had IV steroids, then it would last about a week. She reports that if uses acthar then it will last about a week. She reports that they come on every few months. She reports that temperatures changes, stress, and PTSD attacks. This can be triggered by the PTSD. Theses episodes are occurring more frequently and getting worse over time. Pain: She gets shooting electrical pain in her right leg. There is associated swelling with the legs as well. She reports that It can happen every day if she doing more. She reports that the pain in starts in the back of the hip on down foot. If she sits down and elevates her legs, then it can get better. She reports that episodes can last hours to days. She reports that her pain is 6/10 on average. At its worse, it will be a 12 out 10. She reports taking an extra gabapentin can help some. She reports that she has not had anything else for this pain. She takes elavil for the pain. Weakness: She has constant weakness in the right arm or leg. She reports that it is worse when she is doing stuff with it. If she is just relaxes, then she can get through. She reports that she can not stand on the right side. She is right handed and makes it hard to use it. Fatigue: She reports that they started provigil for the fatigue about a months ago. She reports that she tires out quickly. She can not do as much as she used to be able to do. She can needs to rest half way through the dishes. She is needing her kids to help up. She reports that she has a bedside comode due to having to walk upstairs for the fatigue. She reports that she does not sleep a lot. She goes to bed at 2:30am and wakes 5:30am. She reports that she has mind racing and has anxiety. She reports that she tries to take a nap once per day. She reports that does not wake up tired. She is unsure if she snores and had not had a sleep study. Memory: She reports that she does not have good memory. She reports that she has difficulty to reading. She has a reduced vocabulary. She has difficulties with vocabulary. She reports that she has issues with concentration and was diagnosed with ADD. She reports that she needs help ordering stuff. She reports that she can follow a receipe. She reports that some one pays for her bills. Mood: She reports that she has lot of depression. Some day it is really bad that she does not want to get out of bed. She see a therapist. She see a sancho foster. She sees a psychiatrist. She reports that she sees a counselor every 3 months. She denies of thought of harm. She reports that it been highten. Bladder/bowel: she reports that she has off and on blatter spasms. She reports that she has frequency with the bladder. She has urinary stress incontience, but can generally hold her bladder. She reports that she can empty her bladder. Numbness: She reports she has numbness hands, feet and toes. It is the constantly there. It is like a decreased sensation. She reports that this is worse with exertion or use. She reports that it is getting worse time. She reports that it is spreading over time. Sometimes it can be burn paraesthesia She reports that the pain is burning type pain. She reports that it is on fire. Headaches: She reports that her headaches are not as bad as they have been. She take sumatriptan. She gets light and noise sensitivity prior to the headache starting.The headache is stabbing in quality. She reports it is located behind one eye. It is generally on the right side. She can get nausea with the headaches. She reports that moving around makes it worse. If she reports that the headache can last all day if she dose not take her triptan. It generally last for a few hours. She reports that it is not positional. She reports it can occur at any time of day. It happens a few times per months. She is on [facility] disability She is involved in regular exercise / physical conditioning. She is doing leg pedal and Fliggo. She is currently supplementing vitamin D3. She is not using tobacco. PATIENT REPORTED DISEASE SUMMARY Ethnicity Dominant Hand Employment Status Current Living Situation Primary Neurological Diagnosis Age of Symptom Onset Relapses in past 12 months MS Attack History Most Recent EDSS Multiple Sclerosis Severity Score Self Walking Assessment Years using current walking aid How long ago did patient start needing a cane or crutch Current Disease Modifying Therapy Prior Disease Modifying Therapy No flowsheet data found. Review of systems: [facility] ROS - 03/20/21 1055 General Change in weight No Fever No Chills No Night Sweats No Cough No Shortness of Breath No Joint pain / swelling Yes Muscle pain / cramps Yes Chest pain No Palpitations No Nausea / Vomiting No Neurologic Double vision No Difficulty swallowing No Difficulty with speech No Numbness / tingling Yes Painful skin sensations Yes Muscle weakness Yes Heat sensitivity Yes Motor fatigue Yes Incoordination/ poor balance Yes Difficulty walking Yes Recent Falls Yes L'hermitte No Difficulty with thinking and memory Yes Pathologic fatigue No Depression Yes Anxiety Yes Urinary urgency No Urinary frequency No Urinary retention / hesitancy No Recent Urinary Tract Infections No Bowel complaints No Sexual Dysfunction No Poor sleep Yes Headaches Yes Recent Seizures No No Known Allergies She currently has no medications in their medication list. She has no past medical history on file. She has no past surgical history on file. She Social History Social History Narrative Not on file Her family history is not on file. GENERAL PHYSICAL EXAMINATION Vital Signs: Blood pressure (!) 142/95, pulse (!) 111, weight 120.8 kg (266 lb 4.8 oz). General Appearance: in no apparent distress, well nourished, conversant, cooperative Eyes: Anicteric sclerae. Moist conjunctivae. No lid edema noted. HENT: Head atraumatic, normocephalic. Oropharynx clear. Moist mucous membranes. Neck/ Thyroid:trachea midline. Supple. No massess. No thyromegaly. . No carotid bruit noted. Lungs: Normal respiratory effort. No intercostal retractions. No dyspnea during conversation.. CTA B. CV: RRR, no murmur. Abdomen: soft, non-distended Extremities: no clubbing, cyanosis, pedal edema, ulcer nor wound noted. Skin: warm, dry, no rash, no ecchymoses, no petechiae noted Pysch: normal mood, behavior, speech, dress, and thought processes MS PERFORMANCE TESTING CLINICAL TESTING VALUE Binocular Visual acuity (Hi: range 13-60, median 59) (Lo: range 0-55, median 32) Low Contrast: High Contrast: Symbol Digit Modality Test (range 4-86, Median 46) Total Number Correct: Nine Hole Peg Test (range 13.4-8.3; median 26.5) Right Hand Avg (seconds): Left Hand Avg (seconds): Dominant Hand: Timed 25 Foot Walk (range 0.1-52.47; Median without aid 7.1) Average Trial Time (seconds): AFO Choice: Walking Aid Choice: VALUE Visual acuity OD: 20/25 contacts OS: 20/2 contacts Timed 25 Foot Walk (Manual if MSPATHS issue) Trial 1: unsteady (Historical) Trial 2: 9 Hole Peg test (Manual if MSPATHS issue) Right 1st: 34.38 (Historical) Right 2nd: Left 1st: 34.23 (Historical) Left 2nd: NEUROLOGIC EXAMINATION MENTAL STATUS: intact to casual conversation. Normal language function regarding fluency and comprehension. Normal mood and affect. CRANIAL NERVES: CN II: Visual tamayo full to confrontation , On pupillary testing, left relative afferent pupillary defect noted., On fundoscopy pallor is noted in left disk. Both disks appear flat and with normal vasculature. CN III, IV, : Eyes are aligned in primary gaze. Extra ocular movements intact without nystagmus. Normal convergence. No GEOFF noted. No ptosis noted. CN V, VII: Sensation and strength are intact and symmetric. CN VIII: Hearing intact to finger rub bilaterally CN IX, X: Palate elevated symmetrically. No dysarthria noted. CN XI: Sternocleidomastoid and trapezius strength is full bilaterally. CN XII: The tongue protrudes in the midline. No fasciculation or atrophy appreciated. PYRAMIDAL: Normal Bulk and Tone, Pronator drift noted right with out pronation , Satelliting noted on the right , Slowed fine finger movement noted on the right Manual Muscle Testing: poor effort on right had full range of motion but instantly give away. D B T WE FF IO HF KF KE DF PF Right 3 3 3 3 3 3 3 3 3 3 3 Left 5 5 5 5 5 5 5 5 5 5 5 Modified Michael Score: B T Hip add KF KE DF PF Right 0 0 0 0 0 0 0 Left 0 0 0 0 0 0 Deep Tendon Reflexes: Bicep Tricep BR Patellar Ankle Right 1 1 1 1 1 Left 1 1 1 2 1 Additional Deep Tendon Reflexes: Jaw Jerk Pectoral Canales Supra-patellar X Adductor Plantar Right absent absent absent absent Down Left absent absent absent absent Down SENSORY:light touch decreased in right side, vibration normal in all four extremities, proprioception normal in all four extremities, temperature normal in all four extremities and pin prick decreased in right side and legs with stress testing is normal COORDINATION: There is moderate ataxia with fine finger movements . bilaterally , There is moderate dysmetria with [id number] bilaterally . and There is moderate ataxia with [id number] movements . bilaterally GAIT: Stand from seated position: requires arms, asymmetric, favoring right leg, Station: wide based, Immediate Standing Balance: stable and requires support/device, Romberg Testing: stable with eyes open, but sways with eyes closed, Stride length:leraching, and non-rhthymic, Arm Swing:decreased on right and left, Knee swing: decreased on right but improves with distractions , Heel Strike: absent on right but improves with distraction, Turn: normal EDSS: Cerebral FSS 0 - normal Visual FSS OD: 20/25 contacts OS: 20/2 contacts 1 - scotoma with visual acuity better than 20/30; corrected Brainstem FSS 0 - Normal Pyramidal FSS 4 - marked paraparesis or hemiparesis, moderate quadriparesis or monoplegia Sensory FSS 5 - loss of sensation in 1 or 2 limbs; or moderate decrease in touch or pain and/or proprioception for most of the body below the head Cerebellar FSS 3 - moderate truncal or limb ataxia Ambulation FSS 4 - requires unilateral support (cane or single crutch) to walk; walks 25 feet in 20 seconds or less Bowel/Bladder FSS 2 - Moderate hesitancy, urgency, retention of bowel or bladder or rare urinary incontinence Estimated EDSS Step 6.0 - Intermittent or constant unilateral assistance (cane, crutch, or brace) required to walk about 100 meters (325 ft.) with or without resting. Consider the functional overlay, EDDS is probably 2.5-3 DIAGNOSTIC TESTING EEG 04/02/19 Summary: During above recoding period, there was evidence of mild diffuse encephalopathy and mild focal cortical dysfunction in left temporal/central region. No epileptiform discharges, no EEG/clinical seizures or paroxysmal events were noted. Cerebral Spinal Fluid: Study Date: 04/04/2019; Study Location: [facility]. Findings: WBC 3; RBC 10; Glucose: 73; Protein 29: IgG Index: 0.66; Unpaired CSF OCB: NA Interpretation: Her cerebrospinal fluid results, as noted above, is supportive of MS and suggestive of an overly active immune response in the central compartment. Cerebral Spinal Fluid: Study Date: 02/06/2015; Study Location: [facility]. Findings: WBC 5; RBC 100; Glucose: 62; Protein 19: IgG Index: 0.81; Unpaired CSF OCB: positive Interpretation: Her cerebrospinal fluid results, as noted above, is supportive of MS and suggestive of an overly active immune response in the central compartment. LABS No results found for any previous visit. ] documented in this encounter [facility] 03-20-2021 Instructions Bri Kraft MD - 03/20/2021 12:18 PM EDT 1. In order to complete the diagnostic work up a. Given that MS is a dynamic disorder that changes on MRI over time, follow up MRI of the brain will be very enlightening. Seeing new lesions suggestive of MS, or the lack of new lesions will help clarify his likelihood of having MS. We will order MRI of the brain with and without gadolinium using multiple sclerosis protocol on a 3T scanner. b. We will obtain screening laboratories to help rule out connective tissue, metabolic and infectious etiologies that may mimic multiple sclerosis or worsen neurological functioning. c. We will obtain laboratories to assist in our selection of MS disease modifying therapies. d. We will obtain Optical Coherence Tomography (OCT) to evaluate the retinal nerve fiber layer (RNFL) to both serve as a baseline as well as to evaluate visual complaints/disorder of visual pathway 2. In regards to disease modify therapy a. We recommend starting disease modifying therapy with Tecfidera (dimethyl fumarate). 3. For MS Symptom Management, I recommend the following plan: o - that we continue current symptomatic medications without change. 2. We recommend a regular exercise program. 3. We will check a viamin D level. Our goal level is between 50-100. . 4. I recommend checking the following labs/tests for general health screening: o Will defer to primary care 5. I recommend making the following referrals: o Physical therapy for balance o Occupational therapy for memory o Social work for new patient 6. MS patients over 50 are at increased risk for accelerated bone loss (osteopenia or osteoporosis). , Bone density testing not indicated at this time. 7. Smoking and second hand smoke lead to worsening of MS. If you are smoking, we recommend choosing a quit date. Once you have chosen a quit date, we will discuss medication and alternative therapies to help you quit. I recommend she contact 1800-QUIT NOW for free assistance with smoking cessation counseling and nicotine replacement therapy. documented in this encounter [facility] 03-19-2021 History of Present illness Narrative Active problem multiple sclerosis with left side weakness and numbness with some somatic overlay with giveway weakness .History of left eye optic neuritis in 2014 with MRI of head in March showing active plaques with inflamatory CSF felt now to have multiple sclerosis started on tecfidera. History of pseudoseizures and migraines.Left eye vision los with neuro opthalmologist feeling this is more somatoform. She has had somatoform weakness along with pseudoseizures in the past although has clear diagnosis of multiple sclerosis To be pulsed with oral medrol 1 gram po qd x 3 days followed by prednisone taper . For cojoint somatic complaints will make referral to psychology . The condition is she reports ongoing left eye vision loss tolerating oral medrol and prednisone taper well . There is weakness of left arm and left leg with numbness ambulating independantly with walker with occasional fall do leg giveway. She is on tecfidera tolerating this well with some flushing. There are no headaches on elavil using OTC motrin as abortive . There are burning paresthesias in arms and legs attenuated with neurontin .Significant medications elavil 100 mg po qhs ,fioricet 1 po q 6 hours PRN, neurontin 300 mg po bid , tecfidera 240 mg po bid. Testing CTA head and neck normal , February 2016 . CSF analysis WBC 7 , RBC 100 , total protein 29, glucose 62 , IgG index elevated 0.81, IgG synthesis elevated 6.3 , February 2015 . MRI of Head with multiple bilateral perivemtricular , drake radiata white matter signals with enhancement left frontal along with left parietal periventricular area . TG 206 , cholesterol 194 , LDL 118. Cardiac 2 D echo . Cardiac 2 D echo normal LVF , EF 55 -60 % . ESR 10 , Hga1c 5.4 . EEG normal . RINA negative documented in this encounter [facility] Evaluation + Plan note Future Appointments Appointment Date:07/07/2023 01:40:00 PM Scheduled Provider:Rex Hamm MD Location:[facility] Appointment Type:[facility] Appointment Date:12/16/2023 08:15:00 AM Scheduled Provider:Rex Hamm MD Location:[facility] Appointment Type[facility] + Plan note Future Appointments Appointment Date:12/16/2023 08:15:00 AM Scheduled Provider:Rex Hamm MD Location:[facility] Appointment Type:FM Open [facility] Evaluation + Plan note Future Appointments Appointment Date:02/10/2024 08:30:00 AM Scheduled Provider:Rex Hamm MD [facility] Type: Open Appointment Date:02/18/2024 09:15:00 AM Scheduled Provider:Ryan Milton MD [facility] Appointment Type:Cardiology New Patient (FT) [facility] Evaluation + Plan note Future Appointments Appointment Date:04/25/2024 10:30:00 AM Scheduled Provider:Rex Hamm MD Location:[facility] Appointment Type: Open Appointment Date:05/22/2024 11:00:00 AM Scheduled Provider: Location:[facility] Appointment Type: Medicare Wellness Subsequent [facility] Evaluation + Plan note Future Appointments Appointment Date:05/31/2024 03:00:00 PM Scheduled Provider: [facility] App[facility] Type:MA Screen () Appointment Date:07/24/2024 10:00:00 AM Scheduled Provider:Rex Hamm MD Location:[facility] Appointment Type: Open Appointment Date:05/24/2025 09:30:00 AM Scheduled Provider: Location:[facility] Appointment Type: Medicare Wellness Subsequent Future Scheduled TestsMA Mamm Screen w/CAD if perf and 3D Olu 05/31/24 [facility] Evaluation + Plan note Future Appointments Appointment Date:07/24/2024 10:00:00 AM Scheduled Provider:Rex Hamm MD Location:[facility] Appointment Type: Open Appointment Date:05/24/2025 09:30:00 AM Scheduled Provider: Location:[facility] Appointment Type: Medicare Wellness Subsequent [facility] Evaluation + Plan note Future Appointments Appointment Date:04/23/2025 09:20:00 AM Scheduled Provider:Rex Hamm MD [facility] App[facility] Type: Open Appointment Date:05/24/2025 09:30:00 AM Scheduled Provider: [facility] Appoint[facility] Type:FM Medicare Wellness Subsequent Diagnostic Tests PendingPath. Review 01/16/25 Future Scheduled TestsMA Mamm Screen w/CAD if perf and 3D Olu 01/16/25 [facility] Evaluation + Plan note Future Appointments Appointment Date:02/21/2025 09:00:00 AM Scheduled Provider:Maikel Basilio DO Location:[facility] Appointment Type:ONC Office Visit New 40 (FT) Appointment Date:04/23/2025 09:20:00 AM Scheduled Provider:Rex Hamm MD Location:[facility] Appointment Type: Open Appointment Date:05/24/2025 09:30:00 AM Scheduled Provider: Location:[facility] Appointment Type:FM Medicare Wellness Subsequent Future Scheduled TestsMA Mamm Screen w/CAD if perf and 3D Olu 01/16/25 [facility] Evaluation + Plan note Future Appointments Appointment Date:03/14/2025 02:40:00 PM Scheduled Provider:Maikel Basilio DO [facility] Type:ONC Office Visit 20 (FT) Appointment Date:04/23/2025 09:20:00 AM Scheduled Provider:Rex Hamm MD Location:[facility] Appointment Type: Open Appointment Date:05/24/2025 09:30:00 AM Scheduled Provider: Location:[facility] Appointment Type:FM Medicare Wellness Subsequent Future Scheduled TestsMA Mamm Screen w/CAD if perf and 3D Olu 01/16/25 [facility] Evaluation + Plan note Future Appointments Appointment Date:03/14/2025 02:40:00 PM Scheduled Provider:Maikel Basilio DO Location:.ONCOLOGY Appointment Type:ONC Office Visit 20 (FT) Appointment Date:04/23/2025 09:20:00 AM Scheduled Provider:Rex Hamm MD Location:[facility] Appointment Type: Open Appointment Date:05/24/2025 09:30:00 AM Scheduled Provider: Location:[facility] Appointment Type:FM Medicare Wellness Subsequent Diagnostic Tests PendingComp panel: Leuk/Lym [id number] 02/21/25 Future Scheduled TestsMA Mamm Screen w/CAD if perf and 3D Olu 01/16/25 [facility] Evaluation + Plan note Future Appointments Appointment Date:04/23/2025 09:20:00 AM Scheduled Provider:Rex Hamm MD Location:[facility] Appointment Type: Open Appointment Date:05/24/2025 09:30:00 AM Scheduled Provider: Location:[facility] Appointment Type: Medicare Wellness Subsequent Appointment Date:09/12/2025 01:20:00 PM Scheduled Provider:ANTONETTE LOERA CNP Location:[facility] Appointment Type:ONC Office Visit 20 (FT) Future Scheduled TestsCBC w/ Auto Diff 06/14/25CBC w/ Auto Diff 09/14/25Comprehensive Metabolic Panel 06/14/25Comprehensive Metabolic Panel 09/14/25Ferritin 06/14/25Ferritin 09/14/25Iron Level 06/14/25Iron Level 09/14/25Iron Percent Saturation 06/14/25Iron Percent Saturation 09/14/25Transferrin 06/14/25Transferrin 09/14/25MA Mamm Screen w/CAD if perf and 3D Olu 01/16/25 [facility] Evaluation + Plan note Future Appointments Appointment Date:05/24/2025 09:30:00 AM Scheduled Provider: Location:[facility] Appointment Type: Medicare Wellness Subsequent Appointment Date:07/20/2025 09:40:00 AM Scheduled Provider:Avelina Pearce Location:[facility] Appointment Type: Open Appointment Date:09/12/2025 01:20:00 PM Scheduled Provider:ANTONETTE LOERA CNP Location:[facility]OG[facility] Appointment Type:ONC Office Visit 20 (FT) Future Scheduled TestsCBC w/ Auto Diff 06/14/25CBC w/ Auto Diff 09/14/25Comprehensive Metabolic Panel 06/14/25Comprehensive Metabolic Panel 09/14/25Ferritin 06/14/25Ferritin 09/14/25Iron Level 06/14/25Iron Level 09/14/25Iron Percent Saturation 06/14/25Iron Percent Saturation 09/14/25Transferrin 06/14/25Transferrin 09/14/25MA Mamm Screen w/CAD if perf and 3D Olu 01/16/25 [facility] Evaluation note Diagnosis Chronic fatigue- Primary Other malaise and fatigue MS (multiple sclerosis) (HCC) Multiple sclerosis Encounter for screening for other viral diseases Mild cognitive impairment, so stated Mild cognitive impairment, so stated Vitamin D deficiency Unspecified disorder of visual [facility] Abnormal SPEP- Primary MS (multiple sclerosis) (HCC) [facility] Diagnosis MS (multiple sclerosis) (HCC)- Primary Multiple sclerosis [facility] Diagnosis MS (multiple sclerosis) (HCC)- Primary Multiple sclerosis [facility] Diagnosis MS (multiple sclerosis) (HCC)- Primary Multiple sclerosis [facility] Diagnosis MS (multiple sclerosis) (HCC)- Primary Multiple sclerosis [facility] Diagnosis MS (multiple sclerosis) (HCC)- Primary Multiple sclerosis Vitamin D deficiency [facility] Diagnosis MS (multiple sclerosis) (HCC)- Primary Multiple sclerosis Vitamin D deficiency [facility] Diagnosis MS (multiple sclerosis) (HCC)- Primary Multiple sclerosis [facility] Diagnosis Multiple sclerosis (HCC)- Primary Multiple sclerosis Encounter for long-term (current) use of high-risk medication Encounter for long-term (current) use of other medications Poor intravenous access [facility] Diagnosis Chronic fatigue Other malaise and fatigue MS (multiple sclerosis) (HCC) Multiple sclerosis Vitamin D deficiency [facility] Diagnosis MS (multiple sclerosis) (HCC) [facility] Diagnosis MS (multiple sclerosis) (HCC)- Primary Multiple sclerosis Migraine without aura and without status migrainosus, not intractable Seizure (HCC) Other convulsions Gait abnormality Abnormality of gait [facility] Diagnosis MS (multiple sclerosis) (HCC) [facility] Diagnosis MS (multiple sclerosis) (HCC)- Primary Multiple sclerosis Chronic fatigue Other malaise and fatigue Syncope, unspecified syncope type [facility] Diagnosis Multiple sclerosis (HCC) Multiple sclerosis Seizures (HCC) Other convulsions MS (multiple sclerosis) (HCC) Multiple sclerosis [facility] Diagnosis Multiple sclerosis (HCC) Multiple sclerosis MS (multiple sclerosis) (HCC) Multiple sclerosis [facility] Diagnosis Multiple sclerosis (HCC)- Primary Multiple sclerosis Therapeutic drug monitoring Encounter for therapeutic drug monitoring [facility] Diagnosis Multiple sclerosis (CMS-HCC)- Primary Multiple sclerosis [facility] Diagnosis Multiple sclerosis (CMS-HCC)- Primary Multiple sclerosis [facility] Diagnosis Multiple sclerosis (CMS-HCC)- Primary Multiple sclerosis [facility] Diagnosis Multiple sclerosis (CMS-HCC)- Primary [facility] Seizures (HCC) Other convulsions MS (multiple sclerosis) (HCC) Multiple sclerosis [facility] Diagnosis Seizures (HCC) Other convulsions MS (multiple sclerosis) (HCC) Multiple sclerosis [facility] Diagnosis Multiple sclerosis (CMS-HCC)- Primary Multiple sclerosis [facility] Diagnosis Therapeutic drug monitoring- Primary Encounter for therapeutic drug monitoring Multiple sclerosis (HCC) Multiple sclerosis Vitamin D deficiency [facility] Diagnosis Multiple sclerosis (CMS-HCC)- Primary Multiple sclerosis [facility] Diagnosis Seizures (HCC) Other convulsions [facility] Diagnosis MS (multiple sclerosis) (HCC)- Primary Multiple sclerosis [facility] Diagnosis MS (multiple sclerosis) (HCC) Multiple sclerosis [facility] Narrative No data available for this section [facility] No data available for this section [facility]ructionsNot [facility] filedocumented in this encounter [facility] filedocumented [facility] filedocumented in this [facility] filedocumented in this encounter [facility] filedocumented in this encounter [facility] filedocumented in this encounter [facility] No data available for this section [facility] (narrative)* Consultation (Routine) - Authorized Specialty Diagnoses / Procedures Referred By Markel donis Referred To Contact Sleep Disorders Medicine Diagnoses Chronic fatigue Bri Kraft MD [address] [facility] [address] [place] [address] Referral ID Status Reason Start Date Expiration Date Visits Requested Visits Authorized [id number] Authorized Specialty Services Required/Pat ient's Best Interest 04/20/2023 04/19/2024 1 1 [facility] Summary Purpose Family History No Family History Records FoundNo Family History Records FoundNo Family History Records FoundNo Family History Records Found No data available for this section No data available for this section No Family History Records Found No data available for this section No data available for this section No data available for this section No data available for this section No data available for this section No data available for this section No Family History Records FoundNo Family History Records FoundNo Family History Records FoundNo Family History Records FoundNo Family History Records FoundNo Family History Records FoundNo Family History Records Found No data available for this section No Family History Records FoundNo Family History Records FoundNo Family History Records FoundNo Family History Records FoundNo Family History Records FoundNo Family History Records Found No data available for this section No data available for this section No Family History Records FoundNo Family History Records FoundNo Family History Records FoundNo Family History Records FoundNo Family History Records FoundNo Family History Records FoundNo Family History Records FoundNo Family History Records FoundNo Family History Records FoundNo Family History Records FoundNo Family History Records FoundNo Family History Records FoundNo Family History Records FoundNo Family History Records Found No data available for this section No Family History Records FoundNo Family History Records Found No data available for this section No Family History Records FoundNo Family History Records FoundNo Family History Records FoundNo Family History Records FoundNo Family History Records FoundNo Family History Records Found Advance Directives No Advanced Directives Records FoundDocuments on File Type Date Recorded Patient Rehab Care Assistant Expl anation Advance Directives and Living Will Power of Contracts Manager Latest Code Status on File Code Status Date Activated Date Inactivated Comments Full Code 04/02/2019 3:27 AM 04/04/2019 8:56 PM Full Code 04/02/2019 2:29 AM 04/02/2019 3:27 AM Full Code 05/14/2017 4:56 PM 05/16/2017 3:37 PM Full Code 03/22/2017 11:35 PM 03/26/2017 7:44 PM Full Code 02/06/2015 9:26 AM 02/07/2015 7:27 PM Documents on File Type Date Recorded Patient Rehab Care Assistant Expl anation ACP-Advance Directive ACP-Power of Contracts Manager Latest Code Status on File Code Status Date Activated Date Inactivated Comments Full Code 04/02/2019 3:27 AM 04/04/2019 8:56 PM Full Code 04/02/2019 2:29 AM 04/02/2019 3:27 AM Full Code 05/14/2017 4:56 PM 05/16/2017 3:37 PM Full Code 03/22/2017 11:35 PM 03/26/2017 7:44 PM Full Code 02/06/2015 9:26 AM 02/07/2015 7:27 PM Documents on File Type Date Recorded Patient Rehab Care Assistant Expl anation ACP-Advance Directive ACP-Power of Contracts Manager Documents on File Type Date Recorded Patient Rehab Care Assistant Expl anation Advance Directives and Living Will Documents on File Type Date Recorded Patient Rehab Care Assistant Expl anation Advance Directives and Living Will Documents on File Type Date Recorded Patient Rehab Care Assistant Expl anation Advance Directives and Livin g Will 04/15/2021 10:06 AM Documents on File Type Date Recorded Patient Rehab Care Assistant Expl anation Advance Directives and Livin g Will 05/21/2021 10:06 AM Documents on File Type Date Recorded Patient Rehab Care Assistant Expl anation Advance Directives and Livin g Will 05/21/2021 10:06 AM Documents on File Type Date Recorded Patient Rehab Care Assistant Expl anation Advance Directives and Livin g Will 10/28/2021 12:00 AM Advance Directives and Livin g Will 05/21/2021 10:06 AM Latest Code Status on File Code Status Date Activated Date Inactivated Comments Full Code - Unverified 10/26/2022 12:25 PM 10/26/2022 4: 00 PM Latest Code Status on File Code Status Date Activated Date Inactivated Comments Full Code - Unverified 10/26/2022 12:25 PM 10/26/2022 4: 00 PM Date Activated Date Inactivated Comments 10/26/2022 12:25 PM 10/26/2022 4:00 PM Date Activated Date Inactivated Comments 10/26/2022 12:25 PM 10/26/2022 4:00 PM Reason for Referral Status Reason Specialty Diagnoses / Procedures Referre d By Contact Referred To Contact Open Radiology Diagnoses Enlarged blind spot of right eye Procedures MRI BRAIN W WO CONTRAST Frank Davila MD [address] [place] [address] Status Reason Specialty Diagnoses / Procedures Referred By Contact Referred To Contact New Request Radiology Diagnoses MS (multiple sclerosis) (HCC) Procedures MR Brain With And Without Contrast Bri Kraft MD [address] [place] [address] [place] [address] Specialty Diagnoses / Procedures Referred By Contac t Referred To Contact Radiology Diagnoses MS (multiple sclerosis) (HCC) Procedures MR Cervical Spine With And Without Contrast Bri Kraft MD [address] [place] [address] [place] [id number] Referral ID Status Reason Start Date Expiration Date V isits Requested Visits Authorized [id number] New Request 10/14/2021 10/14/2022 1 1 Specialty Diagnoses / Procedures Referred By Contac t Referred To Contact Radiology Diagnoses MS (multiple sclerosis) (HCC) Procedures MR Thoracic Spine With And Without Contrast Bri Kraft MD [facility] [address] [place] [id number] Referral ID Status Reason Start Date Expiration Date V isits Requested Visits Authorized [id number] New Request 10/14/2021 10/14/2022 1 1 Specialty Diagnoses / Procedures Referred By Contac t Referred To Contact Radiology Diagnoses MS (multiple sclerosis) (HCC) Procedures MR Brain With And Without Contrast Bri Kraft MD [address] [facility] [address] [place] [address] Referral ID Status Reason Start Date Expiration Date V isits Requested Visits Authorized [id number] New Request 10/14/2021 10/14/2022 1 1 Specialty Diagnoses / Procedures Referred By Contac t Referred To Contact Prevention and Wellness Diagnoses MS (multiple sclerosis) (HCC) [facility] [place] [address] [facility] [address] [place] [address] Referral ID Status Reason Start Date Expiration Date Visits Requested Visits Authorized [id number] Authorized Specialty Services Required/Pat ient's Best Interest 10/28/2021 10/28/2022 1 1 Specialty Diagnoses / Procedures Referred By Contac t Referred To Contact Radiology Diagnoses MS (multiple sclerosis) (HCC) Procedures MR Brain Without Contrast Bri Kraft MD [address] [facility] [address] [place] [address] Referral ID Status Reason Start Date Expiration Date V isits Requested Visits Authorized [id number] New Request 10/28/2021 10/28/2022 1 1 Specialty Diagnoses / Procedures Referred By Contac t Referred To Contact Diagnoses MS (multiple sclerosis) (HCC) Bri Kraft MD [address] [facility] [address] [place] [address] Referral ID Status Reason Start Date Expiration Date V isits Requested Visits Authorized [id number] Pending Review 1 1 Specialty Diagnoses / Procedures Referred By Contac t Referred To Contact Interventional Radiology Diagnoses Multiple sclerosis (HCC) Poor intravenous access Anika Baker CNP [address] [facility] [address] [place] [address] [facility] [address] [place] [address] Referral ID Status Reason Start Date Expiration Date V isits Requested Visits Authorized [id number] Authorized 10/19/2022 10/19/2023 1 1 Specialty Diagnoses / Procedures Referred By Contac t Referred To Contact Radiology Diagnoses Multiple sclerosis (HCC) Procedures MR Brain Without Contrast Anika Baker, BOARD WRITER [address] [facility] [address] [place] [address] [facility] [address] [place] [address] Referral ID Status Reason Start Date Expiration Date V isits Requested Visits Authorized [id number] New Request 10/19/2022 10/19/2023 1 1 Specialty Diagnoses / Procedures Referred By Contac t Referred To Contact Diagnoses Multiple sclerosis (HCC) Anika Baker, BOARD WRITER [facility] [address] [place] [address] SERVICE NOT IN SYSTEM Referral ID Status Reason Start Date Expiration Date V isits Requested Visits Authorized [id number] Closed Specialty Services Required/Mia ent's Best Interest 10/19/2022 10/19/2023 1 1 Specialty Diagnoses / Procedures Referred By Contac t Referred To Contact Diagnoses MS (multiple sclerosis) (HCC) Migraine without aura and without status migrainosus, not intractable Gait abnormality Bri Kraft MD [address] [place] [address] [place] [address] OF SERVICE NOT IN SYSTEM Referral ID Status Reason Start Date Expiration Date V isits Requested Visits Authorized [id number] Closed Specialty Services Required/Mia ent's Best Interest 10/12/2023 10/11/2024 1 1 Specialty Diagnoses / Procedures Referred By Contac t Referred To Contact Radiology Diagnoses MS (multiple sclerosis) (HCC) Procedures MR Cervical Spine Without Contrast Bri Kraft MD [address] [place] [address] [place] [address] Referral ID Status Reason Start Date Expiration Date V isits Requested Visits Authorized [id number] New Request 10/12/2023 10/11/2024 1 1 Referral ID Status Reason Start Date Expiration Date V isits Requested Visits Authorized [id number] New Request 10/12/2023 10/11/2024 1 1 Specialty Diagnoses / Procedures Referred By Contac t Referred To Contact Cardiology Diagnoses MS (multiple sclerosis) (HCC) Chronic fatigue Syncope, unspecified syncope type Procedures Cardiac event monitor Bri Kraft MD [address] [place] [address] [address] [address] Referral ID Status Reason Start Date Expiration Date V isits Requested Visits Authorized [id number] Authorized 01/13/2024 01/12/2025 1 1 Specialty Diagnoses / Procedures Referred By Contac t Referred To Contact Cardiology Diagnoses MS (multiple sclerosis) (HCC) Chronic fatigue Syncope, unspecified syncope type Procedures Tilt table Bri Kraft MD [address] [place] [address] [address] Referral ID Status Reason Start Date Expiration Date V isits Requested Visits Authorized [id number] Authorized 01/13/2024 01/12/2025 1 1 Specialty Diagnoses / Procedures Referred By Contac t Referred To Contact Sleep Medicine Diagnoses Chronic fatigue Bri Kraft MD [facility] [place] [id number] Referral ID Status Reason Start Date Expiration Date V isits Requested Visits Authorized [id number] Authorized 01/13/2024 01/12/2025 1 1 Assessments Diagnosis Enlarged blind spot of right eye Diagnosis Deficiencies of limbs Weakness of both lower extremities Urinary incontinence, unspecified type Low back pain, unspecified back pain laterality, unspecified chronicity, unspecified whether sciatica present Decreased patellar reflex Abnormal reflex Sensory abnormality of lumbar dermatome distribution Diagnosis Memory loss MS (multiple sclerosis) (HCC) Multiple sclerosis Additional Source Comments INFORMATION SOURCE (unrecogn ized section and content) DATE CREATED AUTHOR 05/05/2019 [facility] DATE CREATED AUTHOR AUTHOR'S ORGANIZ ATION 04/17/2021 [facility] DATE CREATED AUTHOR AUTHOR'S ORGANIZ ATION 09/29/2022 [facility] DATE CREATED AUTHOR AUTHOR'S ORGANIZ ATION 11/01/2022 [facility] DATE CREATED AUTHOR AUTHOR'S ORGANIZ ATION 11/06/2023 [facility] DATE CREATED AUTHOR AUTHOR'S ORGANIZ ATION 01/18/2025 [facility] DATE CREATED AUTHOR AUTHOR'S ORGANIZ ATION 02/21/2025 [facility] DATE CREATED AUTHOR AUTHOR'S ORGANIZ ATION 02/24/2025 [facility] DATE CREATED AUTHOR AUTHOR'S ORGANIZ ATION 02/26/2025 [facility] DATE CREATED AUTHOR AUTHOR'S ORGANIZ ATION 03/18/2025 [facility] DATE CREATED AUTHOR AUTHOR'S ORGANIZ ATION 04/09/2025 [facility] DATE CREATED AUTHOR AUTHOR'S ORGANIZ ATION 04/21/2025 [facility] DATE CREATED AUTHOR AUTHOR'S ORGANIZ ATION 04/30/2025 [facility] DATE CREATED AUTHOR AUTHOR'S ORGANIZ ATION 05/24/2025 [facility] DATE CREATED AUTHOR AUTHOR'S ORGANIZ ATION 05/28/2025 [facility] DATE CREATED AUTHOR AUTHOR'S ORGANIZ ATION 05/29/2025 [facility] DATE CREATED AUTHOR AUTHOR'S ORGANIZ ATION 05/30/2025 [facility] Reason for Visit (unrecogniz ed section and content) Reason Comments Outpatient Infusion Specialty Diagnoses / Procedures Referred By Contac t Referred To Contact Diagnoses Multiple sclerosis ([facility]) Procedures ONCBCN INFUSION APPOINTMENT REQUEST 01 Referral ID Status Reason Start Date Expiration Date Visits Re quested Visits Authorized [id number] 1 1 Reason Comments Multiple Sclerosis [facility] Specialty Diagnoses / Procedures Referred By Contac t Referred To Contact Infusion Therapy Diagnoses MS (multiple sclerosis) ([facility]) Procedures NATALIZUMAB INJECTION Bri Kraft MD [address] [facility] [address] [place] [address] [facility] [address] [place] [address] Referral ID Status Reason Start Date Expiration Date V isits Requested Visits Authorized [id number] Authorized 05/09/2021 05/08/2022 14 14 Reason Comments Multiple Sclerosis #3 Tysabri Status Reason Specialty Diagnoses / Procedures Referre d By Contact Referred To Contact Diagnoses Scotoma of blind spot area, right eye H53.421 Procedures IN MRI BRAIN COMBO [address] [facility] Status Reason Specialty Diagnoses / Procedures Re ferred By Contact Referred To Contact Closed Radiology Diagnoses Other symptoms and signs involving the musculoskeletal system Unspecified urinary incontinence Low back pain Abnormal reflex Other disturbances of skin sensation Procedures HC MRI-SPINE LUMBAR WO CONTRAST Britni oBb [address] [place] [address] [facility] [address] [place] [address] Status Reason Specialty Diagnoses / Procedures Referre d By Contact Referred To Contact Closed Radiology Diagnoses Multiple sclerosis Procedures HC MRI-BRAIN WO & W CONTRAST Britni Bob PA [address] [place] [address] [facility] [address] [place] [address] Reason Comments Multiple Sclerosis tysabri Reason Onset Date Comments TOUCH reauthorization 10/16/2021 Reason Onset Date Comments Medication Refill 09/13/2023 Reason Onset Date Comments Medication Refill 12/09/2023 Reason Onset Date Comments Medication Refill 03/01/2024 Reason Onset Date Comments Medication Refill 03/17/2024 Baclofen, Kaur pentin, and Provigil Reason Comments Follow-up Follow up and MRI br ain/cervical completed today. Left hand/fingers has had increase in tingling over past couple weeks Reason Comments Outpatient Infusion Tysabri Reason Onset Date Comments Medication Refill 09/27/2024 Specialty Diagnoses / Procedures Referred By Markel t Referred To Contact Diagnoses Multiple sclerosis ([facility] Procedures NATALIZUMAB INJECTION IN IV INFUSION, THERAP/PROPH/DIAGNOST,INIT IAL,1ST HOUR Bri Kraft MD [address] [facility] [address] [place] [address] [facility] [address] [place] [address] Referral ID Status Reason Start Date Expiration Date V isits Requested Visits Authorized [id number] Authorized 2021 09/19/2024 38 38 Reason Comments Port/VAD Care Port flush Reason Onset Date Comments Medication Refill 10/16/2024 Reason Onset Date Comments Medication Refill 10/17/2024 Referral ID Status Reason Start Date Expiration Date V isits Requested Visits Authorized [id number] Authorized 2021 09/10/2024 12 39 Reason Comments Outpatient Infusion tysabri Specialty Diagnoses / Procedures Referred By Markel donis Referred To Contact Diagnoses Multiple sclerosis ([facility]) Procedures NATALIZUMAB INJECTION IN IV INFUSION, THERAP/PROPH/DIAGNOST,INIT IAL,1ST HOUR Bri Kraft MD [address] [facility] [address] [place] [address] Phone: tel: fax: [facility] [address] [place] [address] Phone: tel: fax: Reason Onset Date Comments Medication Refill 03/27/2025 Reason Onset Date Comments Medication Refill 04/19/2025 Reason Onset Date Comments Medication Refill 05/04/2025 Care Teams (unrecognized sec tion and content) Unix Analyst Relationship Specialty Start Date End Date Won Hernandez, [address] [place] [address] PCP - General Family Medicine 02/28/21 Unix Analyst Relationship Specialty Start Date End Date Won Hernandez DO [address] [place] [address] PCP - General Family Medicine 02/28/21 Unix Analyst Relationship Specialty Start Date End Date Won Hernandez DO [address] [place] [address] PCP - General Family Medicine 02/28/21 Unix Analyst Relationship Specialty Start Date End Date Won Hernandez DO [address] [place] [address] PCP - General Family Medicine 02/28/21 Unix Analyst Relationship Specialty Start Date End Date Won Hernandez DO [address] [place] [address] PCP - General Family Medicine 02/28/21 Unix Analyst Relationship Specialty Start Date End Date Won Hernandez DO [address] [place] [address] PCP - General Family Medicine 02/28/21 Unix Analyst Relationship Specialty Start Date End Date Won Hernandez DO [address] [place] [address] PCP - General Family Medicine 02/28/21 Unix Analyst Relationship Specialty Start Date End Date Won Hernandez DO [address] [place] [address] PCP - General Family Medicine 02/28/21 Unix Analyst Relationship Specialty Start Date End Date Won Hernandez DO [address] [place] [address] PCP - General Family Medicine 02/28/21 Unix Analyst Relationship Specialty Start Date End Date Won Hernandez DO [address] [place] [address] PCP - General Family Medicine 02/28/21 Unix Analyst Relationship Specialty Start Date End Date Won Hernandez DO [address] [place] [address] PCP - General Family Medicine 02/28/21 Unix Analyst Relationship Specialty Start Date End Date Won Hernandez DO [address] [place] [address] PCP - General Family Medicine 02/28/21 Unix Analyst Relationship Specialty Start Date End Date Won Hernandez DO [address] [place] [address] PCP - General Family Medicine 02/28/21 Unix Analyst Relationship Specialty Start Date End Date Won Hernandez DO [address] [place] [address] PCP - General Family Medicine 02/28/21 Unix Analyst Relationship Specialty Start Date End Date Won Hernandez DO [address] [place] [address] PCP - General Family Medicine 02/28/21 Unix Analyst Relationship Specialty Start Date End Date Won Hernandez DO [address] [place] [address] PCP - General Family Medicine 02/28/21 Unix Analyst Relationship Specialty Start Date End Date Won Hernandez DO [address] [place] [address] PCP - General Family Medicine 02/28/21 Unix Analyst Relationship Specialty Start Date End Date RikWon [address] [place] [address] PCP - General Family Medicine 02/28/21 Unix Analyst Relationship Specialty Start Date End Date Rik Won MastersDO [address] [place] [address] PCP - General Family Medicine 02/28/21 Unix Analyst Relationship Specialty Start Date End Date Won Hernandez DO [address] [place] [address] PCP - General Family Medicine 02/28/21 Unix Analyst Relationship Specialty Start Date End Date Won Hernandez DO [address] [place] [address] PCP - General Family Medicine 02/28/21 Unix Analyst Relationship Specialty Start Date End Date Rex Hamm MD [address] [place] [address] PCP - General Family Medicine 04/20/24 Unix Analyst Relationship Specialty Start Date End Date Rex Hamm MD [address] [place] [address] PCP - General 01/26/24 Unix Analyst Relationship Specialty Start Date End Date Rex Hamm MD [address] [place] [address] PCP - General Family [facility] 04/20/24 Unix Analyst Relationship Specialty Start Date End Date Rex Hamm MD [address] [place] [address] PCP - General 01/26/24 Unix Analyst Relationship Specialty Start Date End Date Rex Hamm MD [address] [place] [address] PCP - General 01/26/24 Unix Analyst Relationship Specialty Start Date End Date Won Hernandez DO [address] [place] [address] PCP - General 03/20/15 Unix Analyst Relationship Specialty Start Date End Date Won Hernandez DO [address] [place] [address] PCP - General 03/20/15 Unix Analyst Relationship Specialty Start Date End Date Won Hernandez DO [address] [place] [address] PCP - General 03/20/15 Unix Analyst Relationship Specialty Start Date End Date Won Hernandez DO [address] [place] [address] PCP - General 03/20/15 Unix Analyst Relationship Specialty Start Date End Date Rex Hamm MD [facility] [place] [address] PCP - General Family Medicine 04/20/24 Unix Analyst Relationship Specialty Start Date End Date Won Hernandez DO [address] [place] [address] PCP - General 03/20/15 Unix Analyst Relationship Specialty Start Date End Date Rex Hamm MD [address] [place] [address] PCP - General 01/26/24 Unix Analyst Relationship Specialty Start Date End Date Rex Hamm MD [address] [place] [address] PCP - General 01/26/24 Unix Analyst Relationship Specialty Start Date End Date Rex Hamm MD [address] [place] [address] PCP - General 01/26/24 Unix Analyst Relationship Specialty Start Date End Date Rex Hamm MD [address] [place] [address] PCP - General 01/26/24 Unix Analyst Relationship Specialty Start Date End Date Rex Hamm MD [address] [facility] [address] [facility] [place] [address] PCP - General Family Medicine 04/20/24 Unix Analyst Relationship Specialty Start Date End Date Rex Hamm MD [address] [facility] [place] [address] [place] [address] PCP - General Family Medicine 04/20/24 Unix Analyst Relationship Specialty Start Date End Date Rex Hamm MD [address] [place] [address] PCP - General 01/26/24 Unix Analyst Relationship Specialty Start Date End Date Rex Hamm MD [address] [facility] [place] [address] [place] [address] PCP - General Family Medicine 04/20/24 FOR RECORDS PERTAINING TO PATIENTS WHO ARE OR HAVE BEEN ENROLLED IN A CHEMICAL DEPENDENCY/SUBSTANCEABUSE PROGRAM, SOME INFORMATION MAY BE OMITTED. This clinical summary was aggregated from multiple sources. Caution should be exercised in using it in the provision of clinical care. This summary normalizes information from multiple sources, and as a consequence, information in this document may materially change the coding, format and clinical context of patient data. In addition, data may be omitted in some cases. CLINICAL DECISIONS SHOULD BE BASED ON THE PRIMARY CLINICAL RECORDS. [facility] [employer] [facility]. provides no warranty or guarantee of the accuracy or completeness of information in this document.
[2025-06-10] MEDS: DIAZEPAM 10 MG/2 ML SYRINGE IV (15:10)
--- NOTE | 2025-06-10 15:10 | PC.NURSE ---
seizure pads in place
[2025-06-10 15:19] LABS: Hematocrit 38.6 % (36.0-48.0); Hemoglobin 12.7 g/dL (12.0-16.0); Mean Corpuscular HGB Conc 32.9 g/dL (29.9-35.2); Mean Corpuscular Hemoglobin 27.0 pg (26.7-34.0); Mean Corpuscular Volume 82.0 fL (81.0-99.0); Platelet Count 266 10^3/uL (150-450); Red Blood Count 4.71 10^6/uL (4.20-5.40); White Blood Count 12.9 10^3/uL (4.0-11.0)
[2025-06-10] MEDS: 0.9 % SODIUM CHLORIDE 1,000 ML 1000 ML IV (15:22)
[2025-06-10 15:25] LABS: ABG PCO2 44.7 mmHg (35.0-45.0); Allen Test POSITIVE (POSITIVE); HCO3 ABG 26.1 mmol/L (22.0-26.0); Liters per Minute 2; O2 Mode NC; Oxygen Saturation ABG 96.0 %; PO2 ABG 77.3 mmHg (80.0-100.0); Puncture Site LR
[2025-06-10 15:38] LABS: INR 1.03; Prothrombin Time 10.9 sec (9.0-11.6)
[2025-06-10 15:43] LABS: Basophils Abs Manual 0.00 10^3/uL (0.00-0.10); Basophils Percent Manual 0.0 % (0.2-2.0); Eosinophils Absolute Manual 0.51 10^3/uL (0.00-0.70); Eosinophils Percent Manual 4.0 % (0.9-7.0); Lymphocytes Absolute Manual 5.80 10^3/uL (1.20-3.80); Lymphocytes Percent Manual 45.0 % (20.5-60.0); Monocytes Absolute Manual 0.51 10^3/uL (0.30-0.80); Monocytes Percent Manual 4.0 % (1.7-12.0); Segmented Neut Absolute Manual 5.67 10^3/uL (1.4-6.5); Segmented Neutrophils % Manual 44.0 (43.0-75.0)
[2025-06-10 15:44] LABS: Alanine Aminotransferase 33 U/L (14-59); Albumin Globulin Ratio 0.8; Albumin Level 3.3 g/dL (3.4-5.0); Alkaline Phosphatase 117 U/L (46-116); Anion Gap 16.3; Aspartate Amino Transferase 26 U/L (15-37); Atypical Lymphocytes % Manual 3.0 %; Atypical Lymphocytes Abs Man 0.38; Blood Urea Nitrogen 11.0 mg/dL (7.0-18.0); Calcium 8.8 mg/dL (8.5-10.1); Carbon Dioxide 24.4 mmol/L (21.0-32.0); Chloride 106 mmol/L (98-107); Estimated GFR (African America >60 (>=60 mL/min/1.73m^2); Estimated GFR (Non-African Ame >60 (>=60 mL/min/1.73m^2); Globulin 4.3 g/dL; Glucose 94 mg/dL (74-106); Potassium 3.7 mmol/L (3.5-5.1); Sodium 143 mmol/L (136-145); Total Protein 7.6 g/dL (6.4-8.2)
[2025-06-10 15:50] LABS: Magnesium 1.7 mg/dL (1.8-2.4)
[2025-06-10 16:10] LABS: Glucose Urine UA NEGATIVE (NEGATIVE)
[2025-06-10 16:18] LABS: Cannabinoid Screen Urine NEGATIVE (NEGATIVE); Methamphetamines Screen Urine NEGATIVE (NEGATIVE); Tricyclic Antidepressant Urine POSITIVE (NEGATIVE)
--- NOTE | 2025-06-10 16:36 | PC.NURSE ---
pt family at bedside, she is having a seizure per family, pt is moving her body slightly [id number]
--- NOTE | 2025-06-10 18:22 | ED_ITS ---
HPI HPI - General Adult General Chief complaint: Seizure Stated complaint: seizure Time Seen by Provider: 06/10/25 14:59 Source: patient Mode of arrival: ambulance Limitations: no limitations History of Present Illness HPI narrative: And have history of MS as well as on Keppra for possible seizure is coming to the ER after she had an episode of seizure according to the family at home, they called the EMS by the time the EMS came to the home they found that the patient was on the floor, the patient was lowered to the floor, there was no chest pain nausea vomiting or any other concerns reported by the family before this happened, but the patient had another episode when the EMS arrived there where according to the family this is how she gets her seizure there was no incontinence of urine or stool there was no tongue biting and the patient was moving her head from 1 side to another. Related Data Home Medications ?Medication ?Instructions ?Recorded ?Confirmed baclofen 20 mg tablet mg 06/10/25 gabapentin 400 mg capsule 400 mg PO BID 06/10/2506/10 (Neurontin) levetiracetam 500 mg tablet 500 mg PO BID 06/10/2501/28 (Keppra) modafinil 100 mg tablet (Provigil) 100 mg PO DAILY 01/2806/10/25 natalizumab 300 mg/15 mL 300 mg IV Q28D 06/10/2501/28 intravenous solution (Tysabri) omeprazole 20 mg capsule,delayed 20 mg PO DAILY 06/10/25 release sertraline 100 mg tablet (Zoloft) 100 mg PO DAILY 01/2806/10/25 Previous Rx's ?Medication ?Instructions ?Recorded [id number] 1 cap PO Q6H PRN hea dache 3 days 01/11/24 50 mg-300 mg-40 mg capsule #12 caps (Fioricet) ondansetron 4 mg disintegrating 4 mg PO Q6H PRN nausea and 01/11/24 tablet vomiting #12 tabs Allergies Allergy/AdvReac Type Severity Reaction Status Date / Time No Known Drug Allergies Allergy Verified 06/10/25 15:06 Opioid HPI Opioid Management Most Recent Opioid Data: Ur Phencyclidine Scrn, (NEGATIVE) Negative Today, 15:53 Review of Systems ROS Status of ROS 10 or more systems reviewed and unremark able except as noted in history and below [facility] Medical History (Updated 06/10/25 @ 18:26 by Layla Eddy MD) Seizure ?R56.9 - Unspecified convulsions (ICD-10) Multiple sclerosis ?G35.D - (ICD-10) Social History Little interest or pleasure in doing things: not at all Feeling down, depressed, or hopeless: not at all Exam Narrative Exam Narrative: Nurses notes and vital signs reviewed and patient is not hypoxic. General: Well-appearing and in no apparent distress. Skin: Warm, dry, no pallor noted. No rash. Head: Normocephalic, atraumatic. Neck: Supple, non-tender. Eye: Pupils are equal, round and EOMI. No scleral icterus. Ears, Nose, Mouth, and Throat: TM are clear, no nasal mucosal hypertrophy. Oral mucosa is moist, no posterior oropharynx erythema, uvula is mid-line Cardiovascular: Regular Rate and Rhythm without murmur, gallop or rub. Respiratory: No accessory muscle use or respiratory distress. Lungs are clear to auscultation, no wheezing, rales or rhonchi Chest Wall: no tenderness Back: No midline thoracic or lumbar vertebral tenderness. No CVA tenderness Musculoskeletal: normal ROM, no calf or popliteal tenderness, no lower extremity edema/swelling GI: Abdomen is soft, non-distended. Normal bowel sounds. No masses appreciated. No tenderness to palpation. No rebound, guarding, or rigidity noted. Neurological: A&O x4. No cranial nerve dysfunction observed. The patient have equal bilaterally platen press feeder but she mentioned that she is not able to elevate her extremity bilaterally Psychiatric: Cooperative and interactive. Normal mood and affect. Constitutional Vital Signs, click to edit/add: Last Vital Signs Temp 99.2 F 06/10/25 15:01 Pulse 93 H 06/10/25 16:15 Resp 17 06/10/25 16:15 BP 137/90 06/10/25 16:15 Pulse Ox 98 06/10/25 16:15 O2 Del Method Nasal Cannula 06/10/25 15:08 O2 Flow Rate 2 06/10/25 15:08 Course Vital Signs Vital signs: Vital Signs Temperature 99.2 F 06/10/25 15:01 Pulse Rate 106 H 06/10/25 15:01 Respiratory Rate 24 H 06/10/25 15:01 Blood Pressure 126/99 H 06/10/25 15:01 Pulse Oximetry 96 06/10/25 15:01 Oxygen Delivery Method Nasal Cannula 06/10/25 15:01 Oxygen Delivery Flow Rate 2 06/10/25 15:01 Temperature 99.2 F 06/10/25 15:01 Pulse Rate 93 H 06/10/25 16:15 Respiratory Rate 17 06/10/25 16:15 Blood Pressure 137/90 06/10/25 16:15 Pulse Oximetry 98 06/10/25 16:15 Oxygen Delivery Method Nasal Cannula 06/10/25 15:08 Oxygen Delivery Flow Rate 2 06/10/25 15:08 Medical Decision Making MDM Narrative Medical decision making narrative: On arrival it was found that the patient still under the effect of Versed that she was provided by the EMS for possible seizure The patient had another 2 episode of moving her head 1 side to another during which she was actually able to squeeze my hand partially while she is doing the seizure like activity My suspicion this is mostly a pseudoseizure CT of the head showed no acute pathology as well as CT of the cervical spine Patient was provided with Versed by the EMS as well as Valium 10 mg here in the ER Patient was provided with a Keppra 1 g loading I did speak with Dr. Aguilar in [facility] and that where her MS clinic is and he recommended maybe a possible observation in case the patient still have weakness bilaterally and according to this current clinical exam The patient have no specific weakness but she is weak all over she did not even smile because she said that she is weak The patient CBC and chemistry showed no acute significant pathology I discussed the case with Dr. Goldstein in neuro service in [facility] and agreed that the patient can be admitted for observation under the hospitalist Accepted by Dr.Dar Thornton Lab Data Labs: Lab Results 06/10/25 06/10/25 06/10/25 Range/Units 15:00 15:15 15:18 WBC 12.9 H (4.0-11.0) 10^3/uL RBC 4.71 (4.20-5.40) 10^6/uL Hgb 12.7 (12.0-16.0) g/dL Hct 38.6 (36.0-48.0) % MCV 82.0 (81.0-99.0) fL MCH 27.0 (26.7-34.0) pg MCHC 32.9 (29.9-35.2) g/dL RDW 15.4 H (11.0-15.0) % Plt Count 266 (150-450) 10^3/uL MPV 8.6 L (9.5-13.5) fL Seg Neuts % (Manual) 44.0 (43.0-75.0) Lymphocytes % (Manual) 45.0 (20.5-60.0) % Atypical Lymphs % (Man) 3.0 % Monocytes % (Manual) 4.0 (1.7-12.0) % Eosinophils % (Manual) 4.0 (0.9-7.0) % Basophils % (Manual) 0.0 L (0.2-2.0) % Neutrophils # (Manual) 5.67 (1.4-6.5) 10^3/uL Lymphocytes # (Manual) 5.80 H (1.20-3.80) 10^3/uL Abs Atypical Lymphs Man 0.38 Monocytes # (Manual) 0.51 (0.30-0.80) 10^3/uL Eosinophils # (Manual) 0.51 (0.00-0.70) 10^3/uL Basophils # (Manual) 0.00 (0.00-0.10) 10^3/uL PT 10.9 (9.0-11.6) sec INR 1.03 Puncture Site Lr ABG pH 7.374 (7.350-7.450) ABG pCO2 44.7 (35.0-45.0) mmHg ABG pO2 77.3 L (80.0-100.0) mmHg ABG HCO3 26.1 H (22.0-26.0) mmol/L ABG O2 Saturation 96.0 % ABG Base Excess 0.9 (-2.0-2.0) mmol/L Angelito Test Positive (POSITIVE) O2 Liters/Min 2 Sodium 143 (136-145) mmol/L Potassium 3.7 (3.5-5.1) mmol/L Chloride 106 (98-107) mmol/L Carbon Dioxide 24.4 (21.0-32.0) mmol/L Anion Gap 16.3 BUN 11.0 (7.0-18.0) mg/dL Creatinine 0.71 (0.55-1.02) mg/dL Est GFR ( Amer) >60 (>=60 mL/min/1.73m^2) Est GFR (Non-Af Amer) >60 (>=60 mL/min/1.73m^2) BUN/Creatinine Ratio 15.5 Glucose 94 (74-106) mg/dL Calcium 8.8 (8.5-10.1) mg/dL Magnesium 1.7 L (1.8-2.4) mg/dL Total Bilirubin 0.3 (0.2-1.0) mg/dL AST 26 (15-37) U/L ALT 33 (14-59) U/L Alkaline Phosphatase 117 H (46-116) U/L Troponin I High Sens <4.0 L (4.0-51.3) pg/mL Total Protein 7.6 (6.4-8.2) g/dL Albumin 3.3 L (3.4-5.0) g/dL Globulin 4.3 g/dL Albumin/Globulin Ratio 0.8 Serum HCG, Qual Negative (NEGATIVE) Urine Color (YELLOW) Urine Clarity (CLEAR) Urine pH (5.0-9.0) Ur Specific [place] (1.005-1.025) Urine Protein (NEG/TRACE) mg/dL Urine Glucose (UA) (NEGATIVE) mg/dL Urine Ketones (NEGATIVE) mg/dL Urine Occult Blood (NEGATIVE) Urine Nitrite (NEGATIVE) Urine Bilirubin (NEGATIVE) Urine Urobilinogen (0.2-1.0) EU/dL Ur Leukocyte Esterase (NEGATIVE) Urine Opiates Screen (NEGATIVE) Ur Buprenorphine Scrn (NEGATIVE) Ur Oxycodone Screen (NEGATIVE) Urine Methadone Screen (NEGATIVE) Ur Barbiturates Screen (NEGATIVE) U Tricyclic Antidepress (NEGATIVE) Ur Phencyclidine Scrn (NEGATIVE) Ur Amphetamines Screen (NEGATIVE) U Methamphetamines Scrn (NEGATIVE) U Benzodiazepines Scrn (NEGATIVE) Urine Cocaine Screen (NEGATIVE) U Cannabinoids Screen (NEGATIVE) POC Glucose 76 (74-106) mg/dL 06/10/25 Range/Units 15:53 WBC (4.0-11.0) 10^3/uL RBC (4.20-5.40) 10^6/uL Hgb (12.0-16.0) g/dL Hct (36.0-48.0) % MCV (81.0-99.0) fL MCH (26.7-34.0) pg MCHC (29.9-35.2) g/dL RDW (11.0-15.0) % Plt Count (150-450) 10^3/uL MPV (9.5-13.5) fL Seg Neuts % (Manual) (43.0-75.0) Lymphocytes % (Manual) (20.5-60.0) % Atypical Lymphs % (Man) % Monocytes % (Manual) (1.7-12.0) % Eosinophils % (Manual) (0.9-7.0) % Basophils % (Manual) (0.2-2.0) % Neutrophils # (Manual) (1.4-6.5) 10^3/uL Lymphocytes # (Manual) (1.20-3.80) 10^3/uL Abs Atypical Lymphs Man Monocytes # (Manual) (0.30-0.80) 10^3/uL Eosinophils # (Manual) (0.00-0.70) 10^3/uL Basophils # (Manual) (0.00-0.10) 10^3/uL PT (9.0-11.6) sec INR Puncture Site ABG pH (7.350-7.450) ABG pCO2 (35.0-45.0) mmHg ABG pO2 (80.0-100.0) mmHg ABG HCO3 (22.0-26.0) mmol/L ABG O2 Saturation % ABG Base Excess (-2.0-2.0) mmol/L Angelito Test (POSITIVE) O2 Liters/Min Sodium (136-145) mmol/L Potassium (3.5-5.1) mmol/L Chloride (98-107) mmol/L Carbon Dioxide (21.0-32.0) mmol/L Anion Gap BUN (7.0-18.0) mg/dL Creatinine (0.55-1.02) mg/dL Est GFR ( Amer) (>=60 mL/min/1.73m^2) Est GFR (Non-Af Amer) (>=60 mL/min/1.73m^2) BUN/Creatinine Ratio Glucose (74-106) mg/dL Calcium (8.5-10.1) mg/dL Magnesium (1.8-2.4) mg/dL Total Bilirubin (0.2-1.0) mg/dL AST (15-37) U/L ALT (14-59) U/L Alkaline Phosphatase (46-116) U/L Troponin I High Sens (4.0-51.3) pg/mL Total Protein (6.4-8.2) g/dL Albumin (3.4-5.0) g/dL Globulin g/dL Albumin/Globulin Ratio Serum HCG, Qual (NEGATIVE) Urine Color Yellow (YELLOW) Urine Clarity Clear (CLEAR) Urine pH 5.5 (5.0-9.0) Ur Specific [place] >=1.030 A (1.005-1.025) Urine Protein Trace (NEG/TRACE) mg/dL Urine Glucose (UA) Negative (NEGATIVE) mg/dL Urine Ketones Trace A (NEGATIVE) mg/dL Urine Occult Blood Negative (NEGATIVE) Urine Nitrite Negative (NEGATIVE) Urine Bilirubin Small A (NEGATIVE) Urine Urobilinogen 0.2 (0.2-1.0) EU/dL Ur Leukocyte Esterase Negative (NEGATIVE) Urine Opiates Screen Negative (NEGATIVE) Ur Buprenorphine Scrn Negative (NEGATIVE) Ur Oxycodone Screen Negative (NEGATIVE) Urine Methadone Screen Negative (NEGATIVE) Ur Barbiturates Screen Negative (NEGATIVE) U Tricyclic Antidepress Positive A (NEGATIVE) Ur Phencyclidine Scrn Negative (NEGATIVE) Ur Amphetamines Screen Negative (NEGATIVE) U Methamphetamines Scrn Negative (NEGATIVE) U Benzodiazepines Scrn Positive A (NEGATIVE) Urine Cocaine Screen Negative (NEGATIVE) U Cannabinoids Screen Negative (NEGATIVE) POC Glucose (74-106) mg/dL Discharge Plan Discharge Chief Complaint: Seizure Clinical Impression: Observed seizure-like activity, Generalized weakness Patient Disposition: [facility]
== END 2025-06-10 21:55 | disposition short-term general hospital (02) ==
PROVIDERS: Emergency Provider Emergency Medicine
DX: R56.9 Unspecified convulsions (principal); R53.1 Weakness; Z79.899 Other long term (current) drug therapy
CPT/HCPCS: 36415; 36600; 70450; 72125; 76376; 80053; 80307; 81003; 82805; 83735; 84484; 84703; 85007; 85027; 85610; 93005; 96365; 96375; 99285; J1953; J3360